=== PATIENT | male | born 1955 | race Two or more races ===

== ENCOUNTER 2025-05-30 21:23 | Inpatient (IN) | payer MEDICAID, OTHER ==
[~2025-05-30] VITALS: Ht 170.2 cm; Wt 65.3 kg
--- NOTE | 2025-05-30 21:39 | ED.PDOC ---
GI ASSESSMENT HPI Comments 70-year-old male with a history of type 2 diabetes and left BKA and per family some cognitive decline now arrives by ambulance from home complaining of generalized abdominal pain worse on the right side of his abdomen for the last 2 days. Associated with some nausea. No known modifying factors. Chief Complaint: Abdominal Pain Time Seen by MD: 21:28 Allergies: Coded Allergies: NO KNOWN ALLERGIES (Unverified , 05/30/25) Information Source: Patient, Emergency Med Personnel Mode of Arrival: EMS Timing: Days Duration: Since onset Quality: Aching Severity: Moderate Pain Location: Diffuse Past Medical History PAST MEDICAL HISTORY: DM Surgical History: BKA Constitutional: reports: malaise Gastrointestinal: reports: abdominal pain, nausea All Other Systems: Reviewed and Negative Physical Exam General Appearance: Moderate Distress, Obese HEENT: Normal ENT Inspection, Pharynx Normal, TMs Normal Neck: Full Range of Motion, Non-Tender, Normal, Normal Inspection Respiratory: Chest Non-Tender, Lungs Clear, No Accessory Muscle Use, No Respiratory Distress, Normal Breath Sounds Cardiovascular: No Edema, No JVD, No Murmur, No Gallop, Normal Peripheral Pulses, Regular Rate/Rhythm Breast Exam: Deferred Gastrointestinal: Diffuse, Tenderness Genitalia: Deferred Pelvic: Deferred Rectal: Deferred Extremities: No pedal edema, Other (left BKA) Musculoskeletal : Apperance: Normal Neurologic: Alert, pharmacy scheduler II-XII nml as Tested, No Motor Deficits, Normal Affect, Normal Mood, No Sensory Deficits Cerebellar Function: Normal Reflexes: Normal Skin: Dry, Normal Color, Warm Lymphatic: No Adenopathy Was a procedure done? Was a procedure done?: No GI differential Dx Differential Diagnosis: Bowel Obstruction, Cholangitis, Constipation, Diverticular disease, Gastritis/PUD, Gastroenteritis, GI hemorrhage, U rolithiasis, Other X-Ray, Labs, Meds, VS Vital Signs Date Time Temp Pulse Resp B/P (MAP) Pulse Ox O2 Delivery O2 Flow Rate FiO2 05/31/25 02:26 96 19 113/50 05/31/25 00:57 98.3 96 16 130/65 (86) 97 98.3 05/30/25 23:00 92 14 96 Room Air* 0 21 05/30/25 22:46 99.6 92 11 139/72 (94) 96 99.6 05/30/25 21:36 99.6 105 17 133/71 97 99.6 Lab Test 05/31/25 00:53 05/31/25 00:14 05/30/25 22:49 05/30/25 21:41 Range/Units POC Glucose 286 H 431 *H 70-106 mg/dl Urine Color Colorless Yellow Urine Clarity Clear Clear Urine pH 6.0 5.0-9.0 Urine Specific [place] 1.026 1.001-1.035 Urine Protein Negative Negative Urine Ketones 1+ H Negative Urine Blood Negative Negative /uL Urine Nitrite Negative Negative Urine Bilirubin Negative Negative Urine Urobilinogen Normal Negative mg/dL Urine Leukocyte Esterase Negative Negative /uL Urine RBC 2 0 - 3 /hpf Urine Microscopic WBC 1 0-3 /HPF Urine Squamous Epithelial Cells None seen <5 /hpf Urine Bacteria None seen None Seen /hpf Urine Glucose 4+ H Normal mg/dL White Blood Count 12.8 H 4.4-10.8 10^3/uL Red Blood Count 4.21 L 4.5-5.90 10^6/uL Hemoglobin 14.2 13.5-17.5 g/dL Hematocrit 41.5 41.0-53.0 % Mean Corpuscular Volume 98.6 80.0-100.0 fL Mean Corpuscular Hemoglobin 33.8 H 28.0-32.0 pg Mean Corpuscular Hemoglobin Concent 34.3 32.0-36.0 g/dL Red Cell Distribution Width 13.1 11.8-14.3 % Platelet Count 246 140-450 10^3/uL Mean Platelet Volume 10.3 6.9-10.8 fL Neutrophils (%) (Auto) 66.2 37.0-80.0 % Lymphocytes (%) (Auto) 19.8 10.0-50.0 % Monocytes (%) (Auto) 12.5 H 0.0-12.0 % Eosinophils (%) (Auto) 0.8 0.0-7.0 % Basophils (%) (Auto) 0.7 0.0-2.0 % Neutrophils # (Auto) 8.5 1.6-8.6 10 ^3/uL Lymphocytes # (Auto) 2.5 0.4-5.4 10 ^3/uL Monocytes # (Auto) 1.6 H 0-1.3 10 ^3/uL Eosinophils # (Auto) 0.1 0-0.8 10 ^3/uL Basophils # (Auto) 0.1 0-0.2 10 ^3/uL Nucleated Red Blood Cells 0.1 % Sodium Level 128 L 136-145 mmol/L Potassium Level 4.3 3.5-5.1 mmol/L Chloride Level 93 L 98-107 mmol/L Carbon Dioxide Level 26 20-31 mmol/L Anion Gap 9 5-15 Blood Urea Nitrogen 16 9-23 mg/dL Creatinine 1.19 0.700-1.30 mg/dL Glomerular Filtration Rate Calc 66 >90 mL/min BUN/Creatinine Ratio 13.4 10.0-20.0 Serum Glucose 416 *H 74-106 mg/dL Calcium Level 8.6 L 8.7-10.4 mg/dL Total Bilirubin 0.6 0.2-1.0 mg/dL Aspartate Amino Transferase (AST) 38 13-40 U/L Alanine Aminotransferase (ALT) 24 7-40 U/L Alkaline Phosphatase 166 H 46-116 U/L Total Protein 6.5 5.7-8.2 g/dL Albumin 3.8 3.2-4.8 g/dL Lipase 29 12-53 U/L Current Medications Medications (Trade) Dose Ordered Sig/Philip Route Start Time Stop Time Status Last Admin Ondansetron HCl (Zofran) 4 mg ONCE ONCE IV 05/30/25 21:45 05/30/25 21:46 DC 05/31/25 02:26 Sodium Chloride 1,000 ml @ 1,000 mls/hr Q1H ONCE IVB 05/30/25 21:45 05/30/25 22:44 DC 05/30/25 21:45 Morphine Sulfate 4 mg ONCE ONCE IV 05/30/25 21:45 05/30/25 21:46 DC 05/31/25 02:26 Insulin Human Regular (InsuLIN R) 6 units ONCE ONCE SC 05/30/25 21:45 05/30/25 21:46 DC 05/30/25 22:55 Time of 1ST Reevaluation: 21:38 Reevaluation 1ST: Unchanged Patient Education/Counseling: Diagnosis, Treatment Family Education/Counseling: No Family Present SEPSIS Sepsis Screen Physician Orders Ct Ab Pel With Iv Con Only (05/30/25 21:32) Blood Glucose Q3h (05/30/25 21:32) R Foot 2 View Xray (05/31/25 04:39) Lactic Acid W/ Reflex Order (05/31/25 04:39) Blood Culture (05/31/25 04:39) PTPTT (05/31/25 04:39) Cefazolin Ancef (05/31/25 04:45) Vancomycin Per Pharmacy (05/31/25 04:45) Enoxaparin Sodium (Lovenox) (05/31/25 04:45) Vital Signs Date Time Temp Pulse Resp B/P (MAP) Pulse Ox O2 Delivery O2 Flow Rate FiO2 05/31/25 02:26 96 19 113/50 05/31/25 00:57 98.3 96 16 130/65 (86) 97 98.3 05/30/25 23:00 92 14 96 Room Air* 0 21 05/30/25 22:46 99.6 92 11 139/72 (94) 96 99.6 05/30/25 21:36 99.6 105 17 133/71 97 99.6 Laboratory Tests Test 05/30/25 21:41 White Blood Count 12.8 10^3/uL (4.4-10.8) H Medications Medications Dose Ordered Sig/Philip Route Start Time Stop Time Status Last Admin Dose Admin Insulin Human Regular 6 units ONCE ONCE SC 05/30/25 21:45 05/30/25 21:46 DC 05/30/25 22:55 Morphine Sulfate 4 mg ONCE ONCE IV 05/30/25 21:45 05/30/25 21:46 DC 05/31/25 02:26 Ondansetron HCl 4 mg ONCE ONCE IV 05/30/25 21:45 05/30/25 21:46 DC 05/31/25 02:26 Sodium Chloride 1,000 ml @ 1,000 mls/hr Q1H ONCE IVB 05/30/25 21:45 05/30/25 22:44 DC 05/30/25 21:45 Departure 1 Departure Time of Disposition: 04:45 Impression: Primary Impression: Generalized abdominal pain Additional Impressions: Cholelithiasis IVC thrombosis Cellulitis of right foot Dry gangrene Type 2 diabetes mellitus with hyperglycemia Disposition: ADMITTED INPATIENT Admit to: Med Surg Condition: Guarded Comments I reviewed the lab results and CT findings. White blood cell count elevated 12.8. Sodium low at 128, chloride low at 93. Severe hyperglycemia with glucose of 416. This improved to 286 with IV fluids and insulin. CT of the abdomen and pelvis was obtained and shows gallstones and inferior vena cava thrombus. Patient also has some dry gangrene to the right great toe and some redness and swelling to the right foot consistent with cellulitis of the right foot. Patient was given Ancef and vancomycin. Patient was given Lovenox for the likely thrombus in the IVC. Patient will need admission for supportive care and further workup Critical Care Note Critical Care Time?: Yes (35 min-critical care time only) Critical care comment: Total critical care time: Approximately 36 minutes Due to a high probability of clinically significant, life threatening deterioration, the patient required my highest level of preparedness to intervene emergently and I personally spent this critical care time directly and personally managing the patient. This critical care time included obtaining a history; examining the patient; pulse oximetry; ordering and review of studies; arranging urgent treatment with development of a management plan; evaluation of patient's response to treatment; frequent reassessment; and, discussions with other providers. This critical care time was performed to assess and manage the high probability of imminent, life-threatening deterioration that could result in multi-organ failure. It was exclusive of separately billable procedures and treating other patients. Stability Stability form required: No Heart Score Heart Score: Heart Score Response (Comments) Value History N/A 0 EKG N/A 0 Age N/A 0 Risk Factors N/A 0 Troponin N/A 0 Total 0 JOÃO CARTER MD May 30, 2025 21:39
[2025-05-30] MEDS: SODIUM CHLORIDE 0.9% 1,000 ML IVB ONE (21:45)
[2025-05-30] MEDS: IOHEXOL 300 MG/ML 100ML BOTTLE IJ ONE (21:55)
[2025-05-30 22:17] LABS: Hematocrit 41.5 % (41.0-53.0); Hemoglobin 14.2 g/dL (13.5-17.5); Mean Corpuscular Hemoglobin 33.8 pg (28.0-32.0); Mean Corpuscular Volume 98.6 fL (80.0-100.0); Nucleated Red Blood Cells % 0.1 %
[2025-05-30 22:52] LABS: Alanine Aminotransferase 24 U/L (7-40); Albumin 3.8 g/dL (3.2-4.8); Alkaline Phosphatase 166 U/L (46-116); Anion Gap 9 (5-15); BUN/Creatinine Ratio 13.4 (10.0-20.0); Bilirubin, Total 0.6 mg/dL (0.2-1.0); Blood Urea Nitrogen 16 mg/dL (9-23); Calcium 8.6 mg/dL (8.7-10.4); Carbon Dioxide 26 mmol/L (20-31); Chloride 93 mmol/L (98-107); Lipase 29 U/L (12-53); Potassium 4.3 mmol/L (3.5-5.1); Sodium 128 mmol/L (136-145); Total Protein 6.5 g/dL (5.7-8.2)
[2025-05-30 22:54] LABS: Glucose 416 mg/dL (74-106)
[2025-05-30] MEDS: InsuLIN REG 1unit/0.01ml Soln (100units/ml) SC ONE (22:55)
[2025-05-30] MEDS: MORPHINE SULFATE 4 MG/ML SYR/VIAL IV ONE (22:57)
[2025-05-30] MEDS: ONDANSETRON HCL 4 MG/2 ML VIAL IV ONE (22:57)
[2025-05-30 23:00] VITALS: PULSE 92; RESP 14; O2SAT 96
[2025-05-31 01:56] LABS: Urine Protein, UAD Negative (Negative)
--- NOTE | 2025-05-31 04:24 | DVH ---
Exam: CT CT AB PEL WITH IV CON ONLY History: abd pain COMPARISON: None Technique: Multidetector spiral CT of the abdomen and pelvis was performed from lung bases to pubic s ymphysis. Intravenous contrast was administered during this examination. Portal venous imaging was o btained. Axial, coronal and sagittal multiplanar reformats were performed by the technologist on a [employer] workstation. Radiation Dose : 1. Abdomen/Pelvis: CTDIvol 17.6 mGy, DLP 970.6 mGy*cm. CONTRAST: Type of contrast: Omnipaque 300 Contrast injected: 100 ml Findings: Lung Bases: No acute or significant lung base finding. Moderate posterior bibasilar atelectasis. Norm al heart size. No pleural or pericardial effusion. Liver: The liver is normal in size. No focal lesions. Normal hepatic vascular enhancement. Gallbladder and Biliary Tree: Cholelithiasis. Spleen: Unremarkable Pancreas: The pancreas is normal in appearance without focal lesions or abnormal enhancement. Adrenal Glands: Unremarkable Kidneys: No hydronephrosis. Bladder: Unremarkable Bowel: The stomach is grossly normal in appearance. Small bowel and colon are normal in caliber and d istribution. The appendix is not visualized; however, no secondary findings of acute appendicitis eileen ntified. Ascites: Absent Lymphadenopathy: No mesenteric, retroperitoneal or periportal lymphadenopathy. Abdominal Wall and Mesentery: Unremarkable. Vasculature: Apparent intraluminal filling defect of the inferior vena cava extending from the juncti on of the iliac vessels to the level of the portal vein. Although this may represent incomplete admix ture of unopacified and opacified blood, venous thrombosis can not be completely excluded given this appearance. The visualized abdominal aorta is normal in size and caliber. Atherosclerotic vascular ca lcifications. Abdominal and pelvic vessels otherwise demonstrate normal enhancement. Pelvic Organs: Unremarkable Musculoskeletal: Moderate to severe age-indeterminate compression fracture deformity of the L2 verteb ral body has resulted between 25 and 50% central and anterior height loss. No evidence of retropulsio n of fragments into the central canal. Hardware within the left hip status post arthroplasty with ass ociated beam hardening artifact partially obscuring the findings of the pelvis. IMPRESSION: 1. Apparent intraluminal filling defect of the inferior vena cava extending from the junction of the iliac vessels level of the portal vein possibly representing venous thrombus. Incomplete admixture of unopacified and opacified blood dependent upon phase of contrast administration and imaging can also cause this appearance. Follow-up imaging with triple phase protocol can be useful in further clarify ing this finding. 2. Cholelithiasis. Radiation optimization: All CT scans at this facility use at least one of these dose optimization axel hniques: automated exposure control mA and/or kV adjustment per patient size (includes targeted exam s where dose is matched to clinical indication) or iterative reconstruction.
[2025-05-31] MEDS ORDERED: VANCOMYCIN PER PHARMACY 0 MG IV SCH (04:45)
[2025-05-31] MEDS: ENOXAPARIN SOD 100 MG/1 ML SYRINGE SC ONE (05:03)
[2025-05-31] MEDS: ceFAZolin 1GM/50ML 50 ML IV ONE (05:03)
--- NOTE | 2025-05-31 05:19 | DVH ---
CLINICAL INDICATION: great toe gangrene / red / swollen TECHNIQUE: XY R FOOT 2 VIEW XRAY Comparison: None FINDINGS/IMPRESSION: : There is no evidence of acute fracture or dislocation. 1st digit subungual gas consistent with probable infectious process. No definite radiographic eviden ce of osteomyelitis. Moderate hallux valgus. Minimal plantar and retrocalcaneal enthesopathy. Soft tissues are unremarkable. Atherosclerotic vascular calcifications.
[2025-05-31 05:24] LABS: INR 1.04 (0.9-1.15); Partial Thromboplastin Time 25.3 SEC (24.5-34.5); Prothrombin Time 11.0 sec (9.3-11.8)
[2025-05-31] MEDS: VANCOMYCIN 1.25GM/250ML 250 ML IV ONE (05:48)
[2025-05-31] MEDS: InsuLIN REG 1unit/0.01ml Soln (100units/ml) SC ONE (05:48)
[2025-05-31] MEDS ORDERED: DOCUSATE SOD 100 MG CAP PO PRN (07:45)
[2025-05-31] MEDS ORDERED: ONDANSETRON HCL 4 MG/2 ML VIAL IV PRN (07:45)
[2025-05-31] MEDS ORDERED: NITROGLYCERIN 0.4 MG SL TAB SL PRN (07:45)
[2025-05-31] MEDS ORDERED: MORPHINE SULFATE INJ 2 MG/ml SYRG IV PRN (07:45)
[2025-05-31] MEDS ORDERED: DEXTROSE (50%) 50ML SYRG IV PRN (08:15)
--- NOTE | 2025-05-31 08:17 | DVHHP2 ---
History of Present Illness Reason for Visit: Abdominal pain History of Present Illness Abdias Naav is a 70-year-old male with past medical history of diabetes, who came to the hospital with complaints of abdominal pain. Patient states he has had RUQ abdominal pain intermittent for about 1-2 months. He also has a gangrene right great toe and a wound to his right heal that he says causes him pain. He has had the wound for a couple months as well and was receiving wound care. Endocrine: Diabetes Past Surgical History: Hernia Repair, Other (L BKA) Smoke: No ALCOHOL: none Drugs: None Lives: with Family Domestic Violence: Neg Review of Systems Constitutional: No: Fever, Chills, Sweats, Weakness, Malaise, Other Eyes: No: Pain, Vision change, Conjunctivae inflammation, Eyelid inflammation, Other, Redness ENT: No: Ear pain, Ear discharge, Nose pain, Nose discharge, Nose congestion, Mouth pain, Mouth swelling, Throat pain, Throat swelling, Other Respiratory: No: Cough, Dry, Shortness of breath, SOB with excertion, Wheezing, Hemoptysis, Pleuritic Pain, Sputum, Wheezing, Other Cardiovascular: No: Chest Pain, Palpitations, Orthopnea, Paroxysmal Noc. Dyspnea, Edema, Lt Headedness, Other Gastrointestinal: Abdominal Pain; No: Nausea, Vomiting, Diarrhea, Constipation, Melena, Hematochezia, Other Genitourinary: No Dysuria, No Frequency, No Incontinence, No Hematuria, No Retention, No Other Musculoskeletal: No: other, neck pain, shoulder pain, arm pain, back pain, hand pain, leg pain, foot pain Skin: No: Rash, Lesions, Jaundice, Bruising, Other Neurological: No: Weakness, Numbness, Incoordination, Change in speech, Confusion, Seizures, Other Allergies: Coded Allergies: NO KNOWN ALLERGIES (Unverified , 05/30/25) Medications Current Medications Medications Dose Ordered Sig/Philip Route Start Time Stop Time Status Last Admin Dose Admin Vancomycin HCl 0 ml @ 0 mls/hr UD IV 05/31/25 04:45 UNV Exam Vital Signs Vital Signs Date Time Temp Pulse Resp B/P (MAP) Pulse Ox O2 Delivery O2 Flow Rate FiO2 05/31/25 06:45 99.5 92 19 132/63 (86) 95 99.5 05/30/25 23:00 Room Air* 0 21 General Appearance: Alert, Cooperative, Other (Oriented x 2) HEENT: Atraumatic, PERRLA Respiratory: Clear to auscultation, Normal air movement Cardiovascular: Regular rate, Normal S1, Normal S2 Abdominal: Normal bowel sounds, Soft, Other (C/O RUQ pain) Extremities: No clubbing, No cyanosis Skin: No significant lesion (wound to right heal and right great toe) Neuro: Normal speech Psych/Mental Status: Mental status NL Labs/Xrays Labs Test 05/31/25 05:35 05/31/25 04:53 05/31/25 00:14 05/30/25 21:41 Range/Units POC Glucose 373 H 70-106 mg/dl Prothrombin Time 11.0 9.3-11.8 sec Prothrombin Time INR 1.04 0.9-1.15 Activated Partial Thromboplast Time 25.3 24.5-34.5 SEC Lactic Acid Level 2.0 0.4-2.0 mmol/L Urine Color Colorless Yellow Urine Clarity Clear Clear Urine pH 6.0 5.0-9.0 Urine Specific [place] 1.026 1.001-1.035 Urine Protein Negative Negative Urine Ketones 1+ H Negative Urine Blood Negative Negative /uL Urine Nitrite Negative Negative Urine Bilirubin Negative Negative Urine Urobilinogen Normal Negative mg/dL Urine Leukocyte Esterase Negative Negative /uL Urine RBC 2 0 - 3 /hpf Urine Microscopic WBC 1 0-3 /HPF Urine Squamous Epithelial Cells None seen <5 /hpf Urine Bacteria None seen None Seen /hpf Urine Glucose 4+ H Normal mg/dL White Blood Count 12.8 H 4.4-10.8 10^3/uL Red Blood Count 4.21 L 4.5-5.90 10^6/uL Hemoglobin 14.2 13.5-17.5 g/dL Hematocrit 41.5 41.0-53.0 % Mean Corpuscular Volume 98.6 80.0-100.0 fL Mean Corpuscular Hemoglobin 33.8 H 28.0-32.0 pg Mean Corpuscular Hemoglobin Concent 34.3 32.0-36.0 g/dL Red Cell Distribution Width 13.1 11.8-14.3 % Platelet Count 246 140-450 10^3/uL Mean Platelet Volume 10.3 6.9-10.8 fL Neutrophils (%) (Auto) 66.2 37.0-80.0 % Lymphocytes (%) (Auto) 19.8 10.0-50.0 % Monocytes (%) (Auto) 12.5 H 0.0-12.0 % Eosinophils (%) (Auto) 0.8 0.0-7.0 % Basophils (%) (Auto) 0.7 0.0-2.0 % Neutrophils # (Auto) 8.5 1.6-8.6 10 ^3/uL Lymphocytes # (Auto) 2.5 0.4-5.4 10 ^3/uL Monocytes # (Auto) 1.6 H 0-1.3 10 ^3/uL Eosinophils # (Auto) 0.1 0-0.8 10 ^3/uL Basophils # (Auto) 0.1 0-0.2 10 ^3/uL Nucleated Red Blood Cells 0.1 % Sodium Level 128 L 136-145 mmol/L Potassium Level 4.3 3.5-5.1 mmol/L Chloride Level 93 L 98-107 mmol/L Carbon Dioxide Level 26 20-31 mmol/L Anion Gap 9 5-15 Blood Urea Nitrogen 16 9-23 mg/dL Creatinine 1.19 0.700-1.30 mg/dL Glomerular Filtration Rate Calc 66 >90 mL/min BUN/Creatinine Ratio 13.4 10.0-20.0 Serum Glucose 416 *H 74-106 mg/dL Calcium Level 8.6 L 8.7-10.4 mg/dL Total Bilirubin 0.6 0.2-1.0 mg/dL Aspartate Amino Transferase (AST) 38 13-40 U/L Alanine Aminotransferase (ALT) 24 7-40 U/L Alkaline Phosphatase 166 H 46-116 U/L Total Protein 6.5 5.7-8.2 g/dL Albumin 3.8 3.2-4.8 g/dL Lipase 29 12-53 U/L Exam: CT CT AB PEL WITH IV CON ONLY CONTRAST: Type of contrast: Omnipaque 300 Contrast injected: 100 ml Findings: Lung Bases: No acute or significant lung base finding. Moderate posterior bibasilar atelectasis. Normal heart size. No pleural or pericardial effusion. Liver: The liver is normal in size. No focal lesions. Normal hepatic vascular enhancement. Gallbladder and Biliary Tree: Cholelithiasis. Spleen: Unremarkable Pancreas: The pancreas is normal in appearance without focal lesions or abnormal enhancement. Adrenal Glands: Unremarkable Kidneys: No hydronephrosis. Bladder: Unremarkable Bowel: The stomach is grossly normal in appearance. Small bowel and colon are normal in caliber and distribution. The appendix is not visualized; however, no secondary findings of acute appendicitis identified. Ascites: Absent Lymphadenopathy: No mesenteric, retroperitoneal or periportal lymphadenopathy. Abdominal Wall and Mesentery: Unremarkable. Vasculature: Apparent intraluminal filling defect of the inferior vena cava extending from the junction of the iliac vessels to the level of the portal vein. Although this may represent incomplete admixture of unopacified and opacified blood, venous thrombosis can not be completely excluded given this ap pearance. The visualized abdominal aorta is normal in size and caliber. Atherosclerotic vascular calcifications. Abdominal and pelvic vessels otherwise demonstrate normal enhancement. Pelvic Organs: Unremarkable Musculoskeletal: Moderate to severe age-indeterminate compression fracture deformity of the L2 vertebral body has resulted between 25 and 50% central and anterior height loss. No evidence of retropulsion of fragments into the central canal. Hardware within the left hip status post arthroplasty with associated beam hardening artifact partially obscuring the findings of the pelvis. IMPRESSION: 1. Apparent intraluminal filling defect of the inferior vena cava extending from the junction of the iliac vessels level of the portal vein possibly representing venous thrombus. Incomplete admixture of unopacified and opacified blood dependent upon phase of contrast administration and imaging can also cause this appearance. Follow-up imaging with triple phase protocol can be useful in further clarifying this finding. 2. Cholelithiasis. CLINICAL INDICATION: great toe gangrene / red / swollen FINDINGS/IMPRESSION: : There is no evidence of acute fracture or dislocation. 1st digit subungual gas consistent with probable infectious process. No definite radiographic evidence of osteomyelitis. Moderate hallux valgus. Minimal plantar and retrocalcaneal enthesopathy. Soft tissues are unremarkable. Atherosclerotic vascular calcifications. SEPSIS Sepsis Screen Date sepsis recognized/suspect: May 30, 2025 Time Sepsis recognized/suspect: 2134 Recent Procedure: No On Antibiotic Therapy: No Respiratory Rate >20: No Heart Rate >90: Yes Temp<36 C (96.8 F) or >38.3 C: No SBP <90 or MAP <65 mmHG: No New Acute Mental Status Change: No Is the patient on CPAP, BIPAP,: No Physician Orders R Foot 2 View Xray (05/31/25 04:39) Blood Culture (05/31/25 04:39) Vancomycin Per Pharmacy (05/31/25 04:45) Vancomycin Per Pharmacy Protoc (05/31/25 05:30) * Wound Consult (05/31/25 ) Admit (05/31/25 07:34) Code Status (05/31/25 07:34) 2 Gm Sodium Diet (05/31/25 Breakfast) Hydrocodone-Acet 5/325mg Tab (Pender 32 (05/31/25 07:45) Ondansetron Hcl (Zofran) (05/31/25 07:45) Docusate Sodium Capsule (Colace Capsule) (05/31/25 07:45) Complete Blood Count (06/01/25 04:00) Comprehensive Metabolic Panel (06/01/25 04:00) Condition: Serious (05/31/25 07:34) Acetaminophen Tablet (Tylenol Tablet) (05/31/25 07:45) Nitroglycerin Sublingual (Ntrostat Subli (05/31/25 07:45) Morphine Sulfate Injection (05/31/25 07:45) Stat Ekg For Chest Pain (05/31/25 07:34) Notify Md Of Changes From Base (05/31/25 07:34) Oil Exploration Engineer For 24 Hours (05/31/25 07:34) Emergency Dysrhythmia Protocol (05/31/25 07:34) Rhythm Strips Once Every Shift (05/31/25 07:34) Oxygen By Nasal Cannula (05/31/25 07:34) *Podiatry Consult [facility]) (05/31/25 07:34) Ct R Foot Wo Contrast (05/31/25 07:34) Right Lower Extremity Ultrasou (05/31/25 07:34) Vital Signs Date Time Temp Pulse Resp B/P (MAP) Pulse Ox O2 Delivery O2 Flow Rate FiO2 05/31/25 06:45 99.5 92 19 132/63 (86) 95 99.5 05/31/25 05:00 98.0 98 14 133/54 (80) 97 98.0 05/31/25 02:56 68 19 151/102 05/31/25 02:26 96 19 113/50 05/31/25 00:57 98.3 96 16 130/65 (86) 97 98.3 Laboratory Tests Test 05/30/25 21:41 05/31/25 04:53 White Blood Count 12.8 10^3/uL (4.4-10.8) H Lactic Acid Level 2.0 mmol/L (0.4-2.0) Medications Medications Dose Ordered Sig/Philip Route Start Time Stop Time Status Last Admin Dose Admin Cefazolin Sodium 50 ml @ 100 mls/hr ONCE ONCE IV 05/31/25 04:45 05/31/25 05:14 DC 05/31/25 05:03 100 MLS/HR Enoxaparin Sodium 70 mg ONCE ONCE SC 05/31/25 04:45 05/31/25 04:46 DC 05/31/25 05:03 70 MG Insulin Human Regular 4 units ONCE ONCE SC 05/31/25 05:45 05/31/25 05:46 DC 05/31/25 05:48 4 UNITS Insulin Human Regular 6 units ONCE ONCE SC 05/30/25 21:45 05/30/25 21:46 DC 05/30/25 22:55 6 UNITS Morphine Sulfate 4 mg ONCE ONCE IV 05/30/25 21:45 05/30/25 21:46 DC 05/31/25 02:26 4 MG Ondansetron HCl 4 mg ONCE ONCE IV 05/30/25 21:45 05/30/25 21:46 DC 05/31/25 02:26 4 MG Sodium Chloride 1,000 ml @ 1,000 mls/hr Q1H ONCE IVB 05/30/25 21:45 05/30/25 22:44 DC 05/30/25 21:45 1,000 MLS/HR Vancomycin HCl 250 ml @ 200 mls/hr ONCE ONCE IV 05/31/25 05:30 05/31/25 06:44 DC 05/31/25 05:48 200 MLS/HR Assessment/Plan Assessment/Plan Assessment: Dry gangrene, right foot cellulitis, Hyperglycemia, IVC thrombosis, Cholelithiasis, Uncontrolled Diabetes, Plan: Admit to Tele, Podiatry consult, Wound care consult, CT right foot, Right leg ultrasound, Anticoagulation, Abdominal ultrasound, Consider IR consult, A1c, Accu checks Q AC&HS with sliding scale, Plan discussed with: Patient My Orders Orders - RIP SANTOS Procedure Category Date Status Time Admit ADMIT 05/31/25 Verified 07:34 Code Status CODE 05/31/25 Verified 07:34 2 Gm Sodium Diet DIET 05/31/25 Verified Breakfast Hydrocodone-Acet PHA 05/31/25 Verified 5/325mg Tab (Pender 07:45 Ondansetron Hcl PHA 05/31/25 Verified (Zofran) 07:45 Docusate Sodium PHA 05/31/25 Verified Capsule (Colace 07:45 Complete Blood Count LAB 06/01/25 Verified 04:00 Comprehensive LAB 06/01/25 Verified Metabolic Panel 04:00 Condition: Serious FEDE 05/31/25 Verified 07:34 Acetaminophen Tablet PHA 05/31/25 Verified (Tylenol Tablet) 07:45 Nitroglycerin PHA 05/31/25 Verified Sublingual (Ntrostat 07:45 Morphine Sulfate PHA 05/31/25 Verified Injection 07:45 Stat Ekg For Chest FEDE 05/31/25 Verified Pain 07:34 Notify Md Of Changes FEDE 05/31/25 Verified From Base 07:34 Oil Exploration Engineer For [facility] 05/31/25 Verified 24 Hours 07:34 Emergency Dysrhythmia FEDE 05/31/25 Verified Protocol 07:34 Rhythm Strips Once [facility] 05/31/25 Verified Every Shift 07:34 Oxygen By Nasal RT 05/31/25 Verified Cannula 07:34 *Podiatry Consult CONS 05/31/25 Verified [facility]usson([facility]) 07:34 Ct R Foot Wo Contrast CT 05/31/25 Verified 07:34 Right Lower Extremity US 05/31/25 Verified Ultrasou 07:34 Date of Service: May 31, 2025 Billing Provider: RIP SANTOS Common Visit Codes: [id number] INP/OBS CARE (MOD) RIP SANTOS May 31, 2025 08:17
--- NOTE | 2025-05-31 08:52 | DVH ---
Right lower extremity venous duplex Clinical History: R/O thrombus Comparison: None Technique: Duplex Doppler evaluation of the deep venous system of the right lower extremity from the common femo ral vein to the popliteal vein including color Doppler and spectral/pulsed waveform analysis was perf ormed. Findings: The common femoral vein demonstrates appropriate compressibility and waveform variability. There is compressibility/patency of the great saphenous vein at the proximal thigh. The femoral vein demonstrates appropriate compressibility and waveform variability. The deep femoral vein demonstrates appropriate compressibility and waveform variability. The popliteal vein demonstrates appropriate compressibility and waveform variability. There is normal compressibility at the tibioperoneal trunk. Impression: 1. No right femoropopliteal venous thrombosis. 2. Contralateral common femoral vein is patent.
[2025-05-31 09:30] VITALS: PULSE 85; RESP 11
--- NOTE | 2025-05-31 09:31 | DVH ---
INDICATION: RUQ pain, Cholelithiasis TECHNIQUE: Multiple real-time sonographic images of the abdomen were obtained. COMPARISON: None FINDINGS: The liver is HETEROGENEOUS in echogenicity. The liver measures 13cm. No intrahepatic bilia ry ductal dilatation is noted. The gallbladder wall measures 0.3 cm and is unremarkable. No gallstones or sludge is seen. The commo n duct measures 0.7 cm and is unremarkable. No pericholecystic fluid is noted. The right kidney measures 10cm. No hydronephrosis. The pancreas is not well visualized due to obscuration from bowel gas. The visualized portions of the IVC and aorta are grossly unremarkable. IMPRESSION: Hepatic steatosis
[2025-05-31] MEDS ORDERED: ENOXAPARIN SOD 100 MG/1 ML SYRINGE SC SCH (10:00)
--- NOTE | 2025-05-31 10:06 | DVH ---
CLINICAL INFORMATION: 70 years old, Male; Dry gangrene. TECHNIQUE: Axial CT images of the right foot were obtained without IV contrast. Coronal and sagittal reformatted images were obtained, reviewed, and stored. All CT scans at this medical facility are pe rformed using dose modulation techniques as appropriate to a performed exam including the following: Automated exposure control was utilized; adjustment of the MA and/or KV according to patient size; an d use of iterative reconstruction technique. CTDIvol = 7.75 mGy DLP = 231.29 mGy-cm COMPARISON: XY R FOOT 2 VIEW XRAY on DOS: 05/31/25 FINDINGS: There is moderate subcutaneous edema in the great toe with prominent locules of gas adjacen t to and within the distal phalanx of the great toe, likely due to necrosis. Necrotizing infection n ot excluded. Can not exclude osteomyelitis in the distal phalanx. No gas is seen coursing along adjac ent fascial planes or elsewhere in the right foot. There is dense arterial calcification. There is a wound adjacent to the plantar aspect of the calcaneus with adjacent subcutaneous edema, possible cell ulitis in the appropriate clinical setting. No organized fluid collection identified on CT to suggest abscess, although limited evaluation for abscess on CT. No adjacent erosive changes or cortical dest ruction in the calcaneus. IMPRESSION: 1. Moderate subcutaneous edema in the great toe with prominent locules of gas adjacent to and within the distal phalanx, likely due to necrosis. Necrotizing infection not excluded. Correlate with clin ical findings. Can not exclude osteomyelitis in the distal phalanx. 2. Wound of the plantar aspect of the calcaneus with adjacent subcutaneous edema, possible cellulitis in the appropriate clinical setting. No evidence for abscess or osteomyelitis in this location on CT . Correlate with clinical findings. If clinically indicated, MRI could be considered. 3. Additional findings as described above.
[2025-05-31] MEDS: InsuLIN REG 1unit/0.01ml Soln (100units/ml) SC SCH ×2 (11:30→21:18)
[2025-05-31] MEDS: ACCU-CHEK COMFORT CURVE STRIP VI SCH (11:30)
[2025-05-31] MEDS: ENOXAPARIN SOD 80 MG/0.8ML SYRINGE SC SCH (12:29)
--- NOTE | 2025-05-31 13:00 | DVH ---
Exam: XY KUB ABDOMEN SINGLE VIEW Indication: r/o sbo Comparison: US ABDOMEN LIMITED on DOS: 05/31/25, CT CT AB PEL WITH IV CON ONLY on DOS: 05/30/25 Technique: 2 radiographic views of the abdomen. Findings: Nonspecific bowel-gas pattern. There is no definite evidence for pneumoperitoneum. No abnormal calcifications noted. Impression: Nonspecific bowel-gas pattern.
--- NOTE | 2025-05-31 14:10 | DVH ---
BILATERAL Lower Extremity Arterial Duplex Date: 05/31/2025 01:29 PM Clinical History: dry gangrene Rt toe, left bka, r/o PAD for podiatry interv Comparison: US RT LOWER DVT on DOS: 05/31/25 Technique: Duplex Doppler evaluation including color Doppler and spectral/pulsed waveform analysis of the lower extremity arteries was performed. Finding: RIGHT: Peak systolic velocities are as follows: SCAFFOLD BUILDER 101 cm/s triphasic waveform Deep femoral 60 cm/s triphasic waveform SFA proximal 79 cm/s triphasic waveform SFA mid-portion 74 cm/s triphasic waveform SFA distal 55 cm/s triphasic waveform Popliteal 69 cm/s triphasic waveform Posterior tibial 90 cm/s triphasic waveform Dorsalis pedis 42cm/s monophasic waveform The waveforms are triphasic waveform from the common femoral artery to the posterior tibial artery. M onophasic waveform in the right dorsalis pedis. LEFT: Peak systolic velocities are as follows: SCAFFOLD BUILDER 54 cm/s triphasic waveform Deep femoral 82 cm/s 82 triphasic waveform SFA proximal 67 cm/s triphasic waveform SFA mid-p 66 ortion 66 cm/s biphasic waveform SFA distal 59 cm/s biphasic waveform Popliteal 34 cm/s biphasic waveform Below-knee amputation The waveforms are triphasic waveform throughout the right lower extremity. Monophasic waveform in the dorsalis pedis. REFERENCE VALUES, [facility] ([facility]) vascular Imaging Lab Criteria: Peak systolic velocity ranges (in cm/sec) are as follows: <150 cm/s - <20 % stenosis 150-200 cm/s - 20-49% stenosis 200-300 cm/s - 50-75% stenosis >300 cm/s -> 75% stenosis IMPRESSION: 1. There is monophasic waveform in the right dorsalis pedis. 2. There is no evidence for peripheral vascular insufficiency in the left lower extremity. 3. Below-knee amputation on the left. 4. Triphasic and biphasic waveforms in the left lower extremity 5. No significant focal stenosis is identified.
[2025-05-31] MEDS: HYDROcodone-ACET 5/325MG TAB PO PRN (16:13)
--- NOTE | 2025-05-31 16:45 | DVHPNRES ---
Progress Note Date Seen: May 31, 2025 Resident Creating Document: UVALDO HARRINGTON RESIDENT Medical Necessity Reason Pt with a Central, PICC or Fol: No Subjective Review of Systems 70-year-old with a past medical history of diabetes and hypertension came to the emergency with complaints of right upper quadrant pain and black discoloration of the right 1st hallux. patient reported that he had right upper quadrant pain for a few days now but yesterday it increased, is a stabbing type, radiates to the epigastric region, 10/ 10 in intensity, not associated with any aggravating or relieving factors. It was not associated with any nausea, vomiting, diarrhea, chills, fever. Patient also reports that his right tip of the toe has become black since the last 2 months and he sometimes feels shooting pain. He has been going to [facility] to get it cleaned. Patient has a ornkc-rjb-gtka amputation of the left leg and is in home hospice. PMH: Diabetes type 2, hypertension PSH: Hernia repair, left ivhsn-ezn-[id number] amputation Social history: Patient lives with family. He denies any smoking, alcohol or taking any illicit drugs. family history: Reviewed and noncontributory to the management of the case Allergies: None ROS: Patient was seen by me at the emergency bedside. Patient's son was present. Patient reports that there is a shooting pain in his right toe. He still complains of right upper quadrant pain . Palacios sign was positive. CT scan shows presence of cholelithiasis, but ultrasound is negative for it. x-ray of the foot shows 1st digit subungual gas consistent with probable infectious process. duplex scan shows: There is monophasic waveform in the right dorsalis pedis. venous Doppler shows no femoral popliteal venous thrombosis. Podiatry consult, pending . IR consulted for possible IVC thrombus. Patient's HbA1c is more than 14 we have put him in moderate sliding scale insulin and insulin Lantus 15 units HS. Objective vital signs Vital Sign Date Time Temp Pulse Resp B/P (MAP) Pulse Ox O2 Delivery O2 Flow Rate FiO2 05/31/25 16:06 98.9 88 20 131/69 (89) 98.9 05/31/25 09:30 Room Air* 0 21 05/31/25 08:00 95 Total Intake and Output 05/30/25 05/30/25 05/31/25 15:00 23:00 07:00 Intake Total 1000 ml 250 ml Balance 1000 ml 250 ml medications Current Medications Medications Dose Ordered Sig/Philip Route Start Time Stop Time Status Last Admin Dose Admin Vancomycin HCl 0 ml @ 0 mls/hr UD IV 05/31/25 04:45 Acetaminophen/ Hydrocodone Bitart 1 tab Q4HP PRN PO 05/31/25 07:45 05/31/25 16:13 1 TAB Ondansetron HCl 4 mg Q4HP PRN IV 05/31/25 07:45 Docusate Sodium 100 mg BIDPRN PRN PO 05/31/25 07:45 Acetaminophen 650 mg Q6HP PRN PO 05/31/25 07:45 Nitroglycerin 0.4 mg Q5MINP PRN SL 05/31/25 07:45 Morphine Sulfate 2 mg Q30M PRN IV 05/31/25 07:45 Enoxaparin Sodium 70 mg Q12HR SC 05/31/25 10:00 UNV Diagnostic Test (Pha) 1 strip ACHS 05/31/25 11:30 05/31/25 11:30 1 STRIP Insulin Human Regular HS SC 05/31/25 22:00 Insulin Human Regular AC SC 05/31/25 11:30 05/31/25 11:30 9 UNITS Dextrose 50 ml UD PRN IV 05/31/25 08:15 Enoxaparin Sodium 70 mg BID SC 05/31/25 10:00 05/31/25 12:29 70 MG Vancomycin HCl 100 ml @ 100 mls/hr Q12H IV 05/31/25 18:00 Insulin Glargine 15 units HS SC 05/31/25 22:00 Pantoprazole Sodium 40 mg DAILY IV 06/01/25 10:00 UNV Examination Pt is lying on bed General Appearance: Alert, Oriented X3, Cooperative, Not in acute distress HEENT: Atraumatic, Mucous membranes moist/pink Respiratory: Clear to auscultation, Normal air movement, No added sounds Cardiovascular: Regular rate, Normal S1, Normal S2, No murmurs Abdominal: Active bowel sounds, Soft, no distention, tenderness in the right upper quadrant Extremities: No edema, Normal pulses, Irrat-upa-spkn amputation on the left leg, dry gangrene, black skin on the tip of the right 1st hallux, Erythema resent below the dry gangrene and 1st metatarsal joint Skin: No Significant rash, except past surgical scars Neuro: Normal speech, sensorimotor deficits none Psych/Mental Status: Mental status NL, Mood NL Nurse was there as steward/stewardess banquet during examination laboratory and microbiology Laboratory Tests 05/30/25 21:41 Test 05/30/25 21:41 Range/Units Serum Glucose 416 *H 74-106 mg/dL Labs and/or images reviewed: Labs reviewed by me, Image(s) reviewed by me Problem List/Assessment/Plan Problem List/Assessment/Plan #Sepsis due to right foot cellulitis #Dry gangrene on right 1st hallux -xray of right foot shows: There is no evidence of acute fracture or dislocation; 1st digit subungual gas consistent with probable infectious process. No definite radiographic evidence of osteomyelitis; Moderate hallux valgus; Minimal plantar and retrocalcaneal enthesopathy; Soft tissues are unremarkable. Atherosclerotic vascular calcifications. -Venous Doppler showed: No right femoropopliteal venous thrombosis. -Right foot CT without contrast shows: 1. Moderate subcutaneous edema in the great toe with prominent locules of gas adjacent to and within the distal phalanx, likely due to necrosis. Necrotizing infection not excluded.b Can not exclude osteomyelitis in the distal phalanx. 2. Wound of the plantar aspect of the calcaneus with adjacent subcutaneous edema, possible cellulitis in the appropriate clinical setting. No evidence for abscess or osteomyelitis in this location on CT. If clinically indicated, MRI could be considered. 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 The thrombus extends to the intrahepatic IVC so the is not a good place to place IVC filter. 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 # uncontrolled Diabetes mellitus type 2, HbA1c >14 -UA shows +1 ketones, +4 glucose -Moderate sliding scale insulin -Insulin Lantus 15 units HS # MARY due to VMN -received IV fluids on admission GI prophylaxis: 40 mg IV daily DVT prophylaxis: Lovenox 70 mg b.i.d. D Diet: cardiac diet Goals of care discussed with the patient's son at bedside for more than 27 minutes: Full code status Case discussed with Dr. Mann, patient, patient's son and nurse. Plan discussed with: Patient, Other (rn) My Orders My Orders Orders - UVALDO HARRINGTON Procedure Category Date Status Time Bilat Low Ext Art US 05/31/25 Resulted Duplex 13:22 Pantoprazole PHA 06/01/25 Logged (Protonix) 10:00 Date of Service: May 31, 2025 Billing Provider: ELIAS BOB MD Common Visit Codes: 30301-[id number] INP/OBS CARE(HIGH) UVALDO HARRINGTON May 31, 2025 16:45 ROLA SEO May 31, 2025 18:38 ELIAS BOB MD Jun 02, 2025 00:27
[2025-05-31 17:35] VITALS: PULSE 85; O2SAT 98
[2025-05-31] MEDS: VANCOMYCIN 750MG KIT 100 ML IV SCH (17:57)
[2025-05-31 18:59] LABS: Amphetamine Screen, Urine Neg (NEGATIVE); Barbiturate Scree,Urine Neg (NEGATIVE); Benzodiazephine Screen, Urine Neg (NEGATIVE); Cannabinoid Screen, Urine Neg (NEGATIVE); Cocaine Screen, Urine Neg (NEGATIVE); Opiate Scree,Urine Pos (NEGATIVE); Phencyclidine Screen, Urine Neg (NEGATIVE); Protein, Urine < 6.0 mg/dL (1-14)
[2025-05-31 20:00] VITALS: PULSE 76; PULSE 80; RESP 16; O2SAT 98
[2025-05-31 20:48] VITALS: BP 122/77; PULSE 80; RESP 16; TEMP 98.1; O2SAT 98
[2025-05-31] MEDS: INSULIN LANTUS (GLARGINE) 1 /0.01ml (100units/ml) SC SCH (21:31)
[2025-05-31] MEDS: CEFEPIME 2GM/50ML NS 50 ML IV SCH (21:35)
[2025-06-01] VITALS (8 sets, daily range): BP systolic 90–146; BP diastolic 51–88; PULSE 79–100; RESP 15–18; TEMP 97.8–98.5; O2SAT 95–98
[2025-06-01 07:32] LABS: Hematocrit 39.1 % (41.0-53.0); Hemoglobin 13.9 g/dL (13.5-17.5); Mean Corpuscular Hemoglobin 34.4 pg (28.0-32.0); Mean Corpuscular Volume 97.0 fL (80.0-100.0); Nucleated Red Blood Cells % 0.0 %
[2025-06-01 07:39] LABS: Alanine Aminotransferase 21 U/L (7-40); Albumin 3.5 g/dL (3.2-4.8); Anion Gap 9 (5-15); BUN/Creatinine Ratio 6.7 (10.0-20.0); Carbon Dioxide 24 mmol/L (20-31); Chloride 104 mmol/L (98-107); Potassium 3.5 mmol/L (3.5-5.1); Sodium 137 mmol/L (136-145); Total Protein 6.1 g/dL (5.7-8.2)
[2025-06-01 07:40] LABS: Bilirubin, Total 0.8 mg/dL (0.2-1.0)
[2025-06-01 07:44] LABS: Alkaline Phosphatase 140 U/L (46-116); Blood Urea Nitrogen 6 mg/dL (9-23); Calcium 8.6 mg/dL (8.7-10.4); Glucose 158 mg/dL (74-106)
[2025-06-01] MEDS: PANTOPRAZOLE 40 MG/10 ML VIAL INJ IV SCH (10:52)
--- NOTE | 2025-06-01 13:16 | DVHCONRES ---
Date Seen: Jun 01, 2025 Reason for Consultation Right hallux gangrene History of Present Illness Abdias Nava is a 70-year-old male with past medical history of diabetes, who came to the hospital with complaints of abdominal pain. Patient states he has had RUQ abdominal pain intermittent for about 1-2 months. He also has a gangrene right great toe and a wound to his right heal that he says causes him pain. He has had the wound for a couple months as well and was receiving wound care. Past Medical History See H&P Past Surgical History See H&P Family History: Diabetes mellitus G8 MOTHER G8 FATHER Hypertension G8 MOTHER G8 FATHER Allergies: Coded Allergies: NO KNOWN ALLERGIES (Unverified , 05/30/25) Current Medications Current Medications Medications (Trade) Dose Ordered Sig/Philip Route PRN Reason Start Time Stop Time Status Last Admin Insulin Human Regular (InsuLIN R) HS SC 05/31/25 22:00 05/31/25 21:18 Vancomycin HCl 100 ml @ 100 mls/hr Q12H IV 05/31/25 18:00 06/01/25 05:06 Insulin Glargine (Lantus) 15 units HS SC 05/31/25 22:00 06/01/25 07:05 DC 05/31/25 21:31 Pantoprazole Sodium (Protonix) 40 mg DAILY IV 06/01/25 10:00 06/01/25 10:52 Cefepime HCl 50 ml @ 12.5 mls/hr Q8HR IV 05/31/25 22:00 06/01/25 05:07 Insulin Glargine (Lantus) 20 units HS SC 06/01/25 22:00 Vital Signs Vital Signs Date Time Temp Pulse Resp B/P (MAP) Pulse Ox O2 Delivery O2 Flow Rate FiO2 06/01/25 09:00 98.5 91 17 90/56 (67) 98 98.5 06/01/25 08:00 Room Air* 0 21 Physical Exam Dermatological: Skin is dry with mild erythema and some maceration around the wound site No gross deformities noted Mild non-pitting edema present bilaterally Dry gangrene of the right hallux Vascular: Dorsalis pedis and posterior tibial pulses are 1+ bilaterally Capillary refill is under 2 seconds Skin temperature is warm bilaterally Neurologic: Protective sensation is absent on the plantar forefoot bilaterally Monofilament testing reveals decreased sensation in multiple plantar sites Musculoskeletal: Range of motion at the ankle and MTP joints is within normal limits. Strength is 5/5 in all tested muscle groups. Gait is antalgic due to offloading of the affected limb. Labs/Diagnostic Data Labs Test 06/01/25 11:51 06/01/25 06:47 05/31/25 17:23 05/31/25 04:53 Range/Units POC Glucose 271 H 70-106 mg/dl White Blood Count 11.6 H 4.4-10.8 10^3/uL Red Blood Count 4.04 L 4.5-5.90 10^6/uL Hemoglobin 13.9 13.5-17.5 g/dL Hematocrit 39.1 L 41.0-53.0 % Mean Corpuscular Volume 97.0 80.0-100.0 fL Mean Corpuscular Hemoglobin 34.4 H 28.0-32.0 pg Mean Corpuscular Hemoglobin Concent 35.5 32.0-36.0 g/dL Red Cell Distribution Width 13.2 11.8-14.3 % Platelet Count 236 140-450 10^3/uL Mean Platelet Volume 10.1 6.9-10.8 fL Neutrophils (%) (Auto) 66.7 37.0-80.0 % Lymphocytes (%) (Auto) 20.9 10.0-50.0 % Monocytes (%) (Auto) 10.3 0.0-12.0 % Eosinophils (%) (Auto) 0.9 0.0-7.0 % Basophils (%) (Auto) 1.2 0.0-2.0 % Neutrophils # (Auto) 7.8 1.6-8.6 10 ^3/uL Lymphocytes # (Auto) 2.4 0.4-5.4 10 ^3/uL Monocytes # (Auto) 1.2 0-1.3 10 ^3/uL Eosinophils # (Auto) 0.1 0-0.8 10 ^3/uL Basophils # (Auto) 0.1 0-0.2 10 ^3/uL Nucleated Red Blood Cells 0.0 % Sodium Level 137 # 136-145 mmol/L Potassium Level 3.5 3.5-5.1 mmol/L Chloride Level 104 # 98-107 mmol/L Carbon Dioxide Level 24 20-31 mmol/L Anion Gap 9 5-15 Blood Urea Nitrogen 6 #L 9-23 mg/dL Creatinine 0.90 0.700-1.30 mg/dL Glomerular Filtration Rate Calc 92 >90 mL/min BUN/Creatinine Ratio 6.7 L 10.0-20.0 Serum Glucose 158 #H 74-106 mg/dL Calcium Level 8.6 L 8.7-10.4 mg/dL Total Bilirubin 0.8 0.2-1.0 mg/dL Aspartate Amino Transferase (AST) 37 13-40 U/L Alanine Aminotransferase (ALT) 21 7-40 U/L Alkaline Phosphatase 140 H 46-116 U/L Total Protein 6.1 5.7-8.2 g/dL Albumin 3.5 3.2-4.8 g/dL B-Type Natriuretic Peptide 76.47 0-100 pg/mL Erythrocyte Sedimentation Rate 29 H 0-20 mm/hr Prothrombin Time 11.0 9.3-11.8 sec Prothrombin Time INR 1.04 0.9-1.15 Activated Partial Thromboplast Time 25.3 24.5-34.5 SEC Hemoglobin A1c > 14.0 H <5.7 % A1C Lactic Acid Level 2.0 0.4-2.0 mmol/L C-Reactive Protein High Sensitivity 6.72 H <1.0 mg/dL Thyroid Stimulating Hormone (TSH) 1.51 0.55-4.78 uIU/mL Test 05/31/25 00:14 05/30/25 21:41 Range/Units Urine Color Colorless Yellow Urine Clarity Clear Clear Urine pH 6.0 5.0-9.0 Urine Specific [place] 1.026 1.001-1.035 Urine Protein Negative Negative Urine Ketones 1+ H Negative Urine Blood Negative Negative /uL Urine Nitrite Negative Negative Urine Bilirubin Negative Negative Urine Urobilinogen Normal Negative mg/dL Urine Leukocyte Esterase Negative Negative /uL Urine RBC 2 0 - 3 /hpf Urine Microscopic WBC 1 0-3 /HPF Urine Squamous Epithelial Cells None seen <5 /hpf Urine Bacteria None seen None Seen /hpf Urine Creatinine 15.37 L 30.0-125.0 mg/dL Urine Protein/Creatinine Ratio 0.39 Urine Glucose 4+ H Normal mg/dL Urine Total Protein < 6.0 1-14 mg/dL Urine Opiates Screen Pos NEGATIVE Urine Fentanyl Screen Neg NEGATIVE Urine Barbiturates Screen Neg NEGATIVE Urine Phencyclidine Screen Neg NEGATIVE Urine Amphetamines Screen Neg NEGATIVE Urine Benzodiazepines Screen Neg NEGATIVE Urine Cocaine Screen Neg NEGATIVE Urine Cannabinoids Screen Neg NEGATIVE Lipase 29 12-53 U/L Microbiology Date/Time Source Procedure Growth Status 05/30/25 21:41 Blood Blood Culture - Preliminary NO GROWTH AFTER 24 HOURS OF INCUBATION. Resulted Problems(with codes): (1) Cholelithiasis (2) Cellulitis of right foot (3) Type 2 diabetes mellitus with hyperglycemia (4) IVC thrombosis (5) Generalized abdominal pain (6) Dry gangrene Plan/Recommendation ASSESSMENT: Patient is a 70 year old seen on the floor for a worsening ulcer PLAN: - The patients chart was reviewed, clinical findings were discussed with the patient, the etiologies of the conditions were discussed in detail, and a treatment plan was agreed to at this time, with both oral and written instructions provided. - reviewed advanced imaging - discussed that if unable to improve blood flow to right foot would need a more proximal amputation - if perform any amputation at this point unlikely to heal - recommend vascular optimization - consider CTA and then see vasculars recommendation - could remove the toe but again there is concern about healing potential All questions were answered and concerns addressed to the patient's sa tisfaction. The patient was given the phone number to the clinic and was told how to make contact with the clinic should any concerns or questions arise. Patient understands that if any questions or concerns arise prior to the next appointment, we should be contacted immediately. FOLLOW-UP: Continue to follow while inpatient Plan discussed with: Patient Visit Coding Podiatry Date of Service if different f: Jun 01, 2025 Billing Provider: VIRGINIA FREY DPM Podiatry Common Visit Codes: CONSULT ONLY Podiatry Consult Codes: 36095-PB/OBS [id number] NEW/EST HI 80 VIRGINIA FREY DPM Jun 01, 2025 13:16
[2025-06-01] MEDS: IOHEXOL 350 MG/ML 100ML IJ ONE (17:54)
--- NOTE | 2025-06-01 18:27 | DVHPNRES ---
Progress Note Date Seen: Jun 01, 2025 Resident Creating Document: UVALDO HARRINGTON RESIDENT Medical Necessity Reason Pt with a Central, PICC or Fol: No Subjective Review of Systems 70-year-old with a past medical history of diabetes and hypertension came to the emergency with complaints of right upper quadrant pain and black discoloration of the right 1st hallux. patient reported that he had right upper quadrant pain for a few days now but yesterday it increased, is a stabbing type, radiates to the epigastric region, 10/ 10 in intensity, not associated with any aggravating or relieving factors. It was not associated with any nausea, vomiting, diarrhea, chills, fever. Patient also reports that his right tip of the toe has become black since the last 2 months and he sometimes feels shooting pain. [facility]. Patient has a [id number]-ewf-cdsy amputation of the left leg and is in home hospice. PMH: Diabetes type 2, hypertension PSH: Hernia repair, left spxxs-vvd-[id number] amputation Social history: Patient lives with family. He denies any smoking, alcohol or taking any illicit drugs. family history: Reviewed and noncontributory to the management of the case Allergies: None ROS: Patient was seen by me at the emergency bedside. Patient's son was present. Patient reports that there is a shooting pain in his right toe. He still complains of right upper quadrant pain . Palacios sign was positive. CT scan shows presence of cholelithiasis, but ultrasound is negative for it. x-ray of the foot shows 1st digit subungual gas consistent with probable infectious process. duplex scan shows: There is monophasic waveform in the right dorsalis pedis. venous Doppler shows no femoral popliteal venous thrombosis. Podiatry consult, pending . IR consulted for possible IVC thrombus. Patient's HbA1c is more than 14 we have put him in moderate sliding scale insulin and insulin Lantus 15 units HS. 06/01/2025: Patient was seen by me at the bedside. Patient has no new active complaints. Podiatry consult suggested CT. CT with runoff has been ordered, results pending. Objective vital signs Vital Sign Date Time Temp Pulse Resp B/P (MAP) Pulse Ox O2 Delivery O2 Flow Rate FiO2 06/01/25 17:00 97.8 79 16 113/72 (86) 95 97.8 06/01/25 08:00 Room Air* 0 21 Total Intake and Output 05/31/25 05/31/25 06/01/25 15:00 23:00 07:00 Intake Total 50 ml 500 ml 150 ml Output Total 400 ml Balance 50 ml 500 ml -250 ml medications Current Medications Medications Dose Ordered Sig/Philip Route Start Time Stop Time Status Last Admin Dose Admin Vancomycin HCl 0 ml @ 0 mls/hr UD IV 05/31/25 04:45 Acetaminophen/ Hydrocodone Bitart 1 tab Q4HP PRN PO 05/31/25 07:45 06/01/25 11:58 1 TAB Ondansetron HCl 4 mg Q4HP PRN IV 05/31/25 07:45 Docusate Sodium 100 mg BIDPRN PRN PO 05/31/25 07:45 Acetaminophen 650 mg Q6HP PRN PO 05/31/25 07:45 Nitroglycerin 0.4 mg Q5MINP PRN SL 05/31/25 07:45 Morphine Sulfate 2 mg Q30M PRN IV 05/31/25 07:45 Enoxaparin Sodium 70 mg Q12HR SC 05/31/25 10:00 UNV Diagnostic Test (Pha) 1 strip ACHS 05/31/25 11:30 06/01/25 17:00 1 STRIP Insulin Human Regular HS SC 05/31/25 22:00 05/31/25 21:18 4 UNITS Insulin Human Regular AC SC 05/31/25 11:30 06/01/25 17:00 3 UNITS Dextrose 50 ml UD PRN IV 05/31/25 08:15 Enoxaparin Sodium 70 mg BID SC 05/31/25 10:00 06/01/25 10:52 70 MG Vancomycin HCl 100 ml @ 100 mls/hr Q12H IV 05/31/25 18:00 06/01/25 05:06 100 MLS/HR Pantoprazole Sodium 40 mg DAILY IV 06/01/25 10:00 06/01/25 10:52 40 MG Cefepime HCl 50 ml @ 12.5 mls/hr Q8HR IV 05/31/25 22:00 06/01/25 14:17 12.5 MLS/HR Insulin Glargine 20 units HS SC 06/01/25 22:00 Examination Pt is lying on bed General Appearance: Alert, Oriented X3, Cooperative, Not in acute distress HEENT: Atraumatic, Mucous membranes moist/pink Respiratory: Clear to auscultation, Normal air movement, No added sounds Cardiovascular: Regular rate, Normal S1, Normal S2, No murmurs Abdominal: Active bowel sounds, Soft, no distention, Palacios's sign positive Extremities: No edema, Normal pulses, Cqxbv-kay-ypjw amputation on the left leg, dry gangrene, black skin on the tip of the right 1st hallux, Erythema resent below the dry gangrene and 1st metatarsal joint Skin: No Significant rash, except past surgical scars Neuro: Normal speech, sensorimotor deficits none Psych/Mental Status: Mental status NL, Mood NL Nurse was there as sap fico architect during examination laboratory and microbiology Laboratory Tests 06/01/25 06:47 Test 06/01/25 06:47 Range/Units Serum Glucose 158 #H 74-106 mg/dL Microbiology Date/Time Source Procedure Growth Status 05/30/25 21:41 Blood Blood Culture - Preliminary NO GROWTH AFTER 24 HOURS OF INCUBATION. 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 No definite radiographic evidence of osteomyelitis; Moderate hallux valgus; Minimal plantar and retrocalcaneal enthesopathy; Soft tissues are unremarkable. Atherosclerotic vascular calcifications. -Venous Doppler showed: No right femoropopliteal venous thrombosis. -Right foot CT without contrast shows: 1. Moderate subcutaneous edema in the great toe with prominent locules of gas adjacent to and within the distal phalanx, likely due to necrosis. Necrotizing infection not excluded.b Can not exclude osteomyelitis in the distal phalanx. 2. Wound of the plantar aspect of the calcaneus with adjacent subcutaneous edema, possible cellulitis in the appropriate clinical setting. No evidence for abscess or osteomyelitis in this location on CT. If clinically indicated, MRI could be considered. 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 No definite radiographic evidence of osteomyelitis; Moderate hallux valgus; Minimal plantar and retrocalcaneal enthesopathy; Soft tissues are unremarkable. Atherosclerotic vascular calcifications. -Venous Doppler showed: No right femoropopliteal venous thrombosis. -Right foot CT without contrast shows: 1. Moderate subcutaneous edema in the great toe with prominent locules of gas adjacent to and within the distal phalanx, likely due to necrosis. Necrotizing infection not excluded.b Can not exclude osteomyelitis in the distal phalanx. 2. Wound of the plantar aspect of the calcaneus with adjacent subcutaneous edema, possible cellulitis in the appropriate clinical setting. No evidence for abscess or osteomyelitis in this location on CT. If clinically indicated, MRI could be considered. - ESR 29, CRP 6.72 -patient is foot is warm, he can wiggle his toes, can flex and extend his toes - Wound consult -doppler usg done and "whooshing" sound heard both in the dorsalis pedis and posterior tibial artery -IV vancomycin and IV cefepime started 05/31 - podiatry consult suggests CTA before podiatry intervention. 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 The thrombus extends to the intrahepatic IVC so the is not a good place to place IVC filter. 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 # uncontrolled Diabetes mellitus type 2, HbA1c >14 -UA shows +1 ketones, +4 glucose -Moderate sliding scale insulin -Insulin Lantus 15 units HS # MARY due to VMN -received IV fluids on admission GI prophylaxis: 40 mg IV daily DVT prophylaxis: Lovenox 70 mg b.i.d. D Diet: cardiac diet Goals of care discussed with the patient's son at bedside for more than 27 minutes: Full code status Case discussed with Dr. Mann, patient, patient's son and nurse. Plan discussed with: Patient, Other (rn) My Orders My Orders Orders - UVALDO HARRINGTON Procedure Category Date Status Time Consistent DIET 06/01/25 Transmitted Carb(Ccho)Diabetes Dinner Ct Angio Abd Aorta W CT 06/01/25 Taken Run Off 14:00 Date of Service: Jun 01, 2025 Billing Provider: ELIAS BOB MD Common Visit Codes: [id number] INP/OBS CARE(HIGH) UVALDO HARRINGTON Jun 01, 2025 18:27 ELIAS BOB MD Jun 02, 2025 00:59
[2025-06-01] MEDS: VANCOMYCIN 750MG KIT 100 ML IV SCH (20:04)
--- NOTE | 2025-06-01 21:00 | DVH ---
Examination: CT CT ANGIO ABD AORTA W RUN OFF CLINICAL HISTORY: duplex- monophasic waveform in the rt dorsalis ped Comparison: Bilateral lower extremity artery duplex from yesterday. Technique: Using helical technique, CT data from the lung bases through the toes was obtained during rapid IV contrast infusion. The examination was timed to the arterial system to generate a CT angiogr aphic study. 3D images were generated at an independent work station. Dose reduction techniques inclu ded automated exposure control. Radiation Dose Information: CT Dose: CTDI volume is 10.28 mGy. Dose-length product is 1419.55 mGy*cm Findings: Abdominal aorta: Normal caliber, patent Celiac artery: Patent SMA: Patent Renal arteries: Patent BULMARO: Patent Right lower extremity: Common iliac artery: Patent External iliac artery: Patent Internal iliac artery: Patent Common femoral artery: Patent Profunda femoral artery: Patent Superficial femoral artery: Patent The popliteal artery and below-knee arteries are not adequately assessed due to suboptimal contrast b olus and extensive vascular calcifications. Left lower extremity: Common iliac artery: Patent External iliac artery: Patent Internal iliac artery: Patent Common femoral artery: Patent Profunda femoral artery: Patent Superficial femoral artery: Patent Popliteal artery: Patent Below this is surgically absent. Chest: Lungs/Pleura:No focal parenchymal process. No suspicious pulmonary nodules. No pleural effusion or fo dayami pleural lesion. Axilla/Soft Tissue: No supraclavicular or axillary adenopathy. Regional soft tissues are within deisy l limits. Mediastinum:Visualized thyroid is normal. No pathologic mediastinal or hilar adenopathy. Esophagus i s normal. Trachea and proximal bronchi are normal. Heart: The heart is normal in size. No pericardial effusion. Abdomen/Pelvis: Liver: The liver is normal in size and morphology,. No focal hepatic lesion. The portal veins are pat ent. Biliary System: Gallbladder: Cholelithiasis. Bile Ducts: No intrahepatic or extrahepatic biliary ductal dilation. Spleen: No splenomegaly or focal splenic lesion. Pancreas: No masses or ductal dilation. Adrenals: Normal. Urinary System: Kidneys and Ureters: Normal in size and location. No renal masses. No renal or ureteral calculi. No hydronephrosis or hydroureter. Bladder: Normal. GI System: Stomach, small bowel, and large bowel are normal in caliber without wall thickening or dil ation Appendix is normal. Vasculature: Arteries: Abdominal aorta is normal in caliber. Splanchnic arteries are proximally patent. Lymph nodes: No lymphadenopathy. Peritoneal cavity and surface: No free fluid. No pneumoperitoneum. Soft Tissues: Soft tissue swelling and locules of gas are seen in the right toe which may reflect nec rotizing infectious/inflammatory process. Reproductive Organs: Normal. Bones: Status post left hip arthroplasty. Status post left below-knee amputation Impression: Right lower extremity arteries: The above knee arteries are patent. The popliteal artery and below-kn ee arteries are not adequately assessed due to suboptimal contrast bolus and extensive vascular calci fications. Left lower extremity arteries: No evidence of acute arterial insufficiency. Status post below-knee am putation. Cholelithiasis. Soft tissue swelling and locules of gas are seen in the right toe which may reflect necrotizing infec tious/inflammatory process.
[2025-06-01] MEDS: INSULIN LANTUS (GLARGINE) 1 /0.01ml (100units/ml) SC SCH (21:21)
[2025-06-02] VITALS (8 sets, daily range): BP systolic 116–160; BP diastolic 69–95; PULSE 76–95; RESP 16–18; TEMP 97.8–99.2; O2SAT 95–98
[2025-06-02 08:14] LABS: Hematocrit 39.9 % (41.0-53.0); Hemoglobin 14.1 g/dL (13.5-17.5); Mean Corpuscular Hemoglobin 34.3 pg (28.0-32.0); Mean Corpuscular Volume 96.9 fL (80.0-100.0); Nucleated Red Blood Cells % 0.0 %
[2025-06-02 08:21] LABS: Alanine Aminotransferase 20 U/L (7-40); Anion Gap 8 (5-15); BUN/Creatinine Ratio 8.2 (10.0-20.0); Carbon Dioxide 26 mmol/L (20-31); Chloride 104 mmol/L (98-107); Glucose 104 mg/dL (74-106); Potassium 3.6 mmol/L (3.5-5.1); Sodium 138 mmol/L (136-145); Total Protein 6.3 g/dL (5.7-8.2)
[2025-06-02 08:22] LABS: Albumin 3.5 g/dL (3.2-4.8)
[2025-06-02 08:23] LABS: Bilirubin, Total 0.8 mg/dL (0.2-1.0)
[2025-06-02 08:26] LABS: Alkaline Phosphatase 151 U/L (46-116); Blood Urea Nitrogen 8 mg/dL (9-23); Calcium 8.7 mg/dL (8.7-10.4)
--- NOTE | 2025-06-02 11:11 | DVHPNRES ---
Progress Note Date Seen: Jun 02, 2025 Resident Creating Document: UVALDO HARRINGTON RESIDENT Medical Necessity Reason Pt with a Central, PICC or Fol: No Subjective Review of Systems 70-year-old with a past medical history of diabetes and hypertension came to the emergency with complaints of right upper quadrant pain and black discoloration of the right 1st hallux. patient reported that he had right upper quadrant pain for a few days now but yesterday it increased, is a stabbing type, radiates to the epigastric region, 10/ 10 in intensity, not associated with any aggravating or relieving factors. It was not associated with any nausea, vomiting, diarrhea, chills, fever. Patient also reports that his right tip of the toe has become black since the last 2 months and he sometimes feels shooting pain. He has been going to [facility] to get it cleaned. Patient has a hmync-gqz-jusp amputation of the left leg and is in home hospice. PMH: Diabetes type 2, hypertension PSH: Hernia repair, left tjtxb-iqw-zdmv amputation Social history: Patient lives with family. He denies any smoking, alcohol or taking any illicit drugs. family history: Reviewed and noncontributory to the management of the case Allergies: None ROS: Patient was seen by me at the emergency bedside. Patient's son was present. Patient reports that there is a shooting pain in his right toe. He still complains of right upper quadrant pain . Palacios sign was positive. CT scan shows presence of cholelithiasis, but ultrasound is negative for it. x-ray of the foot shows 1st digit subungual gas consistent with probable infectious process. duplex scan shows: There is monophasic waveform in the right dorsalis pedis. venous Doppler shows no femoral popliteal venous thrombosis. Podiatry consult, pending . IR consulted for possible IVC thrombus. Patient's HbA1c is more than 14 we have put him in moderate sliding scale insulin and insulin Lantus 15 units HS. 06/01/2025: Patient was seen by me at the bedside. Patient has no new active complaints. Podiatry consult suggested CT. CTA with runoff has been ordered, results pending. 06/02/2025: Patient was seen by me at the bedside. Patient complained of pain in his foot today and was given [place]. CTA with runoff shows the popliteal artery and below knee arteries are adequately assess due to suboptimal contrast bolus and extensive vascular calcification. We had conducted Doppler day before yesterday which showed a whooshing sound in both dorsalis pedis and posterior tibial artery. Informed Dr. Guadarrama regarding all results. Consult with vascular surgery, pending regarding CTA and evaluation for angiogram. Objective vital signs Vital Sign Date Time Temp Pulse Resp B/P (MAP) Pulse Ox O2 Delivery O2 Flow Rate FiO2 06/02/25 09:00 98.1 80 17 138/84 (102) 96 98.1 06/02/25 08:00 Room Air* 0 21 Total Intake and Output 06/01/25 06/01/25 06/02/25 15:00 23:00 07:00 Intake Total 1775 ml 150 ml Output Total 400 ml 80 ml Balance 1375 ml 70 ml medications Current Medications Medications Dose Ordered Sig/Philip Route Start Time Stop Time Status Last Admin Dose Admin Vancomycin HCl 0 ml @ 0 mls/hr UD IV 05/31/25 04:45 Acetaminophen/ Hydrocodone Bitart 1 tab Q4HP PRN PO 05/31/25 07:45 06/02/25 07:02 1 TAB Ondansetron HCl 4 mg Q4HP PRN IV 05/31/25 07:45 Docusate Sodium 100 mg BIDPRN PRN PO 05/31/25 07:45 Acetaminophen 650 mg Q6HP PRN PO 05/31/25 07:45 Nitroglycerin 0.4 mg Q5MINP PRN SL 05/31/25 07:45 Morphine Sulfate 2 mg Q30M PRN IV 05/31/25 07:45 Enoxaparin Sodium 70 mg Q12HR SC 05/31/25 10:00 UNV Diagnostic Test (Pha) 1 strip ACHS 05/31/25 11:30 06/02/25 05:23 1 STRIP Insulin Human Regular HS SC 05/31/25 22:00 06/01/25 21:20 6 UNITS Insulin Human Regular AC SC 05/31/25 11:30 06/02/25 05:54 2 UNITS Dextrose 50 ml UD PRN IV 05/31/25 08:15 Enoxaparin Sodium 70 mg BID SC 05/31/25 10:00 06/02/25 09:36 70 MG Pantoprazole Sodium 40 mg DAILY IV 06/01/25 10:00 06/02/25 09:36 40 MG Cefepime HCl 50 ml @ 12.5 mls/hr Q8HR IV 05/31/25 22:00 06/02/25 05:18 12.5 MLS/HR Insulin Glargine 20 units HS SC 06/01/25 22:00 06/01/25 21:21 20 UNITS Vancomycin HCl 100 ml @ 100 mls/hr Q12H IV 06/01/25 20:00 06/02/25 08:03 100 MLS/HR laboratory and microbiology Laboratory Tests 06/02/25 07:05 Test 06/02/25 07:05 Range/Units Serum Glucose 104 74-106 mg/dL Microbiology Date/Time Source Procedure Growth Status 05/30/25 21:41 Blood Blood Culture - Preliminary NO GROWTH AFTER 48 HOURS OF INCUBATION. 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 No definite radiographic evidence of osteomyelitis; Moderate hallux valgus; Minimal plantar and retrocalcaneal enthesopathy; Soft tissues are unremarkable. Atherosclerotic vascular calcifications. -Venous Doppler showed: No right femoropopliteal venous thrombosis. -Right foot CT without contrast shows: 1. Moderate subcutaneous edema in the great toe with prominent locules of gas adjacent to and within the distal phalanx, likely due to necrosis. Necrotizing infection not excluded.b Can not exclude osteomyelitis in the distal phalanx. 2. Wound of the plantar aspect of the calcaneus with adjacent subcutaneous edema, possible cellulitis in the appropriate clinical setting. No evidence for abscess or osteomyelitis in this location on CT. If clinically indicated, MRI could be considered. - ESR 29, CRP 6.72 -patient is foot is warm, he can wiggle his toes, can flex and extend his toes - Wound consult -doppler usg done and "whooshing" sound heard both in the dorsalis pedis and posterior tibial artery -IV vancomycin and IV cefepime started 05/31 - podiatry consult suggests CTA before podiatry intervention. -CTA with runoff, showed: Right lower extremity arteries: The above knee arteries are patent. The popliteal artery and below-knee arteries are not adequately assessed due to suboptimal contrast bolus and extensive vascular calcifications; Left lower extremity arteries: No evidence of acute arterial insufficiency. Status post below-knee amputation;Soft tissue swelling and locules of gas are seen in the right toe which may reflect necrotizing infectious/inflammatory process. -Consult with vascular surgery, pending regarding CTA and evaluation for angiogram. 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 The thrombus extends to the intrahepatic IVC so the is not a good place to place IVC filter. 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 # uncontrolled Diabetes mellitus type 2, HbA1c >14 -UA shows +1 ketones, +4 glucose -Moderate sliding scale insulin -Insulin Lantus 15 units HS # MARY due to VMN -received IV fluids on admission GI prophylaxis: 40 mg IV daily DVT prophylaxis: Lovenox 70 mg b.i.d. D Diet: cardiac diet Goals of care discussed with the patient's son at bedside for more than 27 minutes: Full code status Case discussed with Dr. Mann, patient, patient's son and nurse. Plan discussed with: Patient, Other (rn) My Orders My Orders Orders - UVALDO HARRINGTON Procedure Category Date Status Time Consistent DIET 06/01/25 [facility] Dinner Ct Angio Abd Aorta W CT 06/01/25 Resulted Run Off 14:00 Date of Service: Jun 02, 2025 Billing Provider: ELIAS BOB MD Common Visit Codes: [id number] INP/OBS CARE(HIGH) UVALDO HARRINGTON Jun 02, 2025 11:11 ELIAS BOB MD Jun 06, 2025 16:44
[2025-06-03] VITALS (8 sets, daily range): BP systolic 103–150; BP diastolic 74–96; PULSE 72–94; RESP 16–18; TEMP 97.8–98.4; O2SAT 95–99
[2025-06-03 08:18] LABS: Alanine Aminotransferase 20 U/L (7-40); Albumin 3.5 g/dL (3.2-4.8); Anion Gap 11 (5-15); BUN/Creatinine Ratio 7.1 (10.0-20.0); Calcium 8.8 mg/dL (8.7-10.4); Carbon Dioxide 25 mmol/L (20-31); Chloride 104 mmol/L (98-107); Glucose 102 mg/dL (74-106); Sodium 140 mmol/L (136-145); Total Protein 6.1 g/dL (5.7-8.2)
[2025-06-03 08:19] LABS: Bilirubin, Total 1.0 mg/dL (0.2-1.0)
[2025-06-03 08:25] LABS: Alkaline Phosphatase 151 U/L (46-116); Blood Urea Nitrogen 6 mg/dL (9-23); Potassium 3.5 mmol/L (3.5-5.1)
[2025-06-03 08:30] LABS: Hematocrit 40.3 % (41.0-53.0); Hemoglobin 13.9 g/dL (13.5-17.5); Mean Corpuscular Hemoglobin 33.6 pg (28.0-32.0); Mean Corpuscular Volume 97.4 fL (80.0-100.0); Nucleated Red Blood Cells % 0.1 %
--- NOTE | 2025-06-03 12:40 | DVHPNRES ---
Progress Note Date Seen: Jun 03, 2025 Resident Creating Document: UVALDO HARRINGTON RESIDENT Medical Necessity Reason Pt with a Central, PICC or Fol: No Subjective Review of Systems 70-year-old with a past medical history of diabetes and hypertension came to the emergency with complaints of right upper quadrant pain and black discoloration of the right 1st hallux. patient reported that he had right upper quadrant pain for a few days now but yesterday it increased, is a stabbing type, radiates to the epigastric region, 10/ 10 in intensity, not associated with any aggravating or relieving factors. It was not associated with any nausea, vomiting, diarrhea, chills, fever. Patient also reports that his right tip of the toe has become black since the last 2 months and he sometimes feels shooting pain. He has been going [facility] get it [facility]. Patient has a [id number] amputation of the left leg and is in home hospice. PMH: Diabetes type 2, hypertension PSH: Hernia repair, left [id number] amputation Social history: Patient lives with family. He denies any smoking, alcohol or taking any illicit drugs. family history: Reviewed and noncontributory to the management of the case Allergies: None ROS: Patient was seen by me at the emergency bedside. Patient's son was present. Patient reports that there is a shooting pain in his right toe. He still complains of right upper quadrant pain . Palacios sign was positive. CT scan shows presence of cholelithiasis, but ultrasound is negative for it. x-ray of the foot shows 1st digit subungual gas consistent with probable infectious process. duplex scan shows: There is monophasic waveform in the right dorsalis pedis. venous Doppler shows no femoral popliteal venous thrombosis. Podiatry consult, pending . IR consulted for possible IVC thrombus. Patient's HbA1c is more than 14 we have put him in moderate sliding scale insulin and insulin Lantus 15 units HS. 06/01/2025: Patient was seen by me at the bedside. Patient has no new active complaints. Podiatry consult suggested CT. CT with runoff has been ordered, results pending. 06/02/2025: Patient was seen by me at the bedside. Patient complained of pain in his foot today and was given [place]. CTA with runoff shows the popliteal artery and below knee arteries are adequately assess due to suboptimal contrast bolus and extensive vascular calcification. We had conducted Doppler day before yesterday which showed a whooshing sound in both dorsalis pedis and posterior tibial artery. Informed Dr. Guadarrama regarding all results. Consult with vascular surgery, pending regarding CTA and evaluation for angiogram. 06/03/2025: Patient was seen by me at the bedside. Patient has no new active complaints. He says that his feet hurts him a little bit. Pending vascular surgery consult Objective vital signs Vital Sign Date Time Temp Pulse Resp B/P (MAP) Pulse Ox O2 Delivery O2 Flow Rate FiO2 06/03/25 09:00 98.0 80 17 127/75 (92) 97 98.0 06/03/25 08:15 Room Air* 0 21 Total Intake and Output 06/02/25 06/02/25 06/03/25 15:00 23:00 07:00 Intake Total 800 ml 300 ml Output Total 300 ml 650 ml Balance 500 ml -350 ml medications Current Medications Medications Dose Ordered Sig/Philip Route Start Time Stop Time Status Last Admin Dose Admin Vancomycin HCl 0 ml @ 0 mls/hr UD IV 05/31/25 04:45 Acetaminophen/ Hydrocodone Bitart 1 tab Q4HP PRN PO 05/31/25 07:45 06/03/25 10:13 1 TAB Ondansetron HCl 4 mg Q4HP PRN IV 05/31/25 07:45 Docusate Sodium 100 mg BIDPRN PRN PO 05/31/25 07:45 Acetaminophen 650 mg Q6HP PRN PO 05/31/25 07:45 Nitroglycerin 0.4 mg Q5MINP PRN SL 05/31/25 07:45 Morphine Sulfate 2 mg Q30M PRN IV 05/31/25 07:45 Enoxaparin Sodium 70 mg Q12HR SC 05/31/25 10:00 UNV Diagnostic Test (Pha) 1 strip ACHS 05/31/25 11:30 06/03/25 11:16 1 STRIP Insulin Human Regular HS SC 05/31/25 22:00 06/02/25 21:57 4 UNITS Insulin Human Regular AC SC 05/31/25 11:30 06/03/25 11:17 3 UNITS Dextrose 50 ml UD PRN IV 05/31/25 08:15 Enoxaparin Sodium 70 mg BID SC 05/31/25 10:00 06/03/25 08:55 70 MG Pantoprazole Sodium 40 mg DAILY IV 06/01/25 10:00 06/03/25 08:55 40 MG Cefepime HCl 50 ml @ 12.5 mls/hr Q8HR IV 05/31/25 22:00 06/03/25 06:01 12.5 MLS/HR Insulin Glargine 20 units HS SC 06/01/25 22:00 06/02/25 21:58 20 UNITS Vancomycin HCl 100 ml @ 200 mls/hr Q12H IV 06/03/25 21:00 Examination Pt is lying on bed General Appearance: Alert, Oriented X3, Cooperative, Not in acute distress HEENT: Atraumatic, Mucous membranes moist/pink Respiratory: Clear to auscultation, Normal air movement, No added sounds Cardiovascular: Regular rate, Normal S1, Normal S2, No murmurs Abdominal: Active bowel sounds, Soft, no distention, Palacios's sign positive Extremities: No edema, Normal pulses, [id number] amputation on the left leg, dry gangrene, black skin on the tip of the right 1st hallux, Erythema resent below the dry gangrene and 1st metatarsal joint Skin: No Significant rash, except past surgical scars Neuro: Normal speech, sensorimotor deficits none Psych/Mental Status: Mental status NL, Mood NL Nurse was there as telephone operators supervisor during examination laboratory and microbiology Laboratory Tests 06/03/25 06:50 Test 06/03/25 06:50 Range/Units Serum Glucose 102 74-106 mg/dL Microbiology Date/Time Source Procedure Growth Status 05/30/25 21:41 Blood Blood Culture - Preliminary NO GROWTH AFTER 72 HOURS OF INCUBATION. 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 No definite radiographic evidence of osteomyelitis; Moderate hallux valgus; Minimal plantar and retrocalcaneal enthesopathy; Soft tissues are unremarkable. Atherosclerotic vascular calcifications. -Venous Doppler showed: No right femoropopliteal venous thrombosis. -Right foot CT without contrast shows: 1. Moderate subcutaneous edema in the great toe with prominent locules of gas adjacent to and within the distal phalanx, likely due to necrosis. Necrotizing infection not excluded.b Can not exclude osteomyelitis in the distal phalanx. 2. Wound of the plantar aspect of the calcaneus with adjacent subcutaneous edema, possible cellulitis in the appropriate clinical setting. No evidence for abscess or osteomyelitis in this location on CT. If clinically indicated, MRI could be considered. - ESR 29, CRP 6.72 -patient is foot is warm, he can wiggle his toes, can flex and extend his toes - Wound consult -doppler usg done and "whooshing" sound heard both in the dorsalis pedis and posterior tibial artery -IV vancomycin and IV cefepime started 05/31 - podiatry consult suggests CTA before podiatry intervention. -CTA with runoff, showed: Right lower extremity arteries: The above knee arteries are patent. The popliteal artery and below-knee arteries are not adequately assessed due to suboptimal contrast bolus and extensive vascular calcifications; Left lower extremity arteries: No evidence of acute arterial insufficiency. Status post below-knee amputation;Soft tissue swelling and locules of gas are seen in the right toe which may reflect necrotizing infectious/inflammatory process. -Consult with vascular surgery, pending regarding CTA and evaluation for angiogram. 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 The thrombus extends to the intrahepatic IVC so the is not a good place to place IVC filter. 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 # uncontrolled Diabetes mellitus type 2, HbA1c >14 -UA shows +1 ketones, +4 glucose -Moderate sliding scale insulin -Insulin Lantus 15 units HS # MARY due to VMN -received IV fluids on admission GI prophylaxis: 40 mg IV daily DVT prophylaxis: Lovenox 70 mg b.i.d. D Diet: cardiac diet Goals of care discussed with the patient's son at bedside for more than 27 minutes: Full code status Case discussed with Dr. Mann, patient, patient's son and nurse. Plan discussed with: Patient, Other (rn) My Orders My Orders Orders - UVALDO HARRINGTON Procedure Category Date Status Time Consult CONS 06/02/25 Transmitted Vascular/Endovascular 18:52 Dietary Evaluation Review Comments: Nutrition Recommendation 1) CCHO 60gm diet 2) Ryder 1 pk BID 3) Refer Truck Technician for diabetes education Expected Outcomes/Goals: Wound to improve Lab values to improve Fu 3-5 days Date of Service: Jun 03, 2025 Billing Provider: ELIAS BOB MD Common Visit Codes: 51499-[id number] INP/OBS CARE(HIGH) UVALDO HARRINGTON Jun 03, 2025 12:40 ELIAS BOB MD Jun 06, 2025 16:54
[2025-06-03] MEDS: VANCOMYCIN 500mg/100mL 100 ML IV SCH (21:27)
[2025-06-04] VITALS (8 sets, daily range): BP systolic 101–134; BP diastolic 65–91; PULSE 78–92; RESP 13–18; TEMP 97–99.2; O2SAT 95–99
--- NOTE | 2025-06-04 08:53 | DVH ---
Date: 06/04/2025 08:21 AM Examination: XY KUB ABDOMEN SINGLE VIEW History: not passing gas, rule out obstruction Comparison: XY KUB ABDOMEN SINGLE VIEW on DOS: 05/31/25, US ABDOMEN LIMITED on DOS: 05/31/25 TECHNIQUE: Frontal views of the abdomen was obtained. FINDINGS: Bowel gas pattern is unremarkable. The lung bases are unremarkable. No acute osseous abnormality identified. IMPRESSION: Nonobstructive bowel gas pattern. Large stool burden
[2025-06-04 08:57] LABS: Hematocrit 38.3 % (41.0-53.0); Hemoglobin 13.4 g/dL (13.5-17.5); Mean Corpuscular Hemoglobin 33.7 pg (28.0-32.0); Mean Corpuscular Volume 96.6 fL (80.0-100.0); Nucleated Red Blood Cells % 0.1 %
[2025-06-04 09:04] LABS: Anion Gap 10 (5-15); Carbon Dioxide 24 mmol/L (20-31); Chloride 104 mmol/L (98-107); Potassium 3.6 mmol/L (3.5-5.1); Sodium 138 mmol/L (136-145)
[2025-06-04 09:05] LABS: Calcium 8.9 mg/dL (8.7-10.4)
[2025-06-04 09:10] LABS: BUN/Creatinine Ratio 8.1 (10.0-20.0); Glucose 97 mg/dL (74-106)
[2025-06-04 09:14] LABS: Blood Urea Nitrogen 7 mg/dL (9-23)
[2025-06-04] MEDS: POLYETHYLENE GLYCOL 17 GM PWDR PO ONE (10:41)
--- NOTE | 2025-06-04 13:21 | DVH ---
CHEST RADIOGRAPH Indication: preop eval, pain Technique: Single frontal view of the chest was obtained Comparison: None FINDINGS: Lines and Tubes: None Lungs: No focal consolidation. Pleura: No effusion. No pneumothorax. Cardiomediastinal contours: Unremarkable Bones: No acute osseous abnormality. IMPRESSION: No acute cardiopulmonary disease.
[2025-06-04] MEDS: CLINDAMYCIN 300MG IV 50 ML IV SCH (13:52)
--- NOTE | 2025-06-04 14:04 | DVHINCON2 ---
Date of service: Jun 05, 2025 History of Present Illness 70 yo M on hospice admitted and now has gangrene /CLI of RLE> pt has BKA to LLE. pt speaks sammarinese and seen by upholstery auto trimmer Past Medical History reviewed Family History: Diabetes mellitus G8 MOTHER G8 FATHER Hypertension G8 MOTHER G8 FATHER Allergies: Coded Allergies: NO KNOWN ALLERGIES (Unverified , 05/30/25) Current Medications Current Medications Medications (Trade) Dose Ordered Sig/Philip Route PRN Reason Start Time Stop Time Status Last Admin Vancomycin HCl 100 ml @ 200 mls/hr Q12H IV 06/03/25 21:00 06/04/25 11:42 DC 06/04/25 08:34 Ceftriaxone Sodium 50 ml @ 100 mls/hr DAILY@09 IV 06/05/25 09:00 Clindamycin Phosphate 50 ml @ 50 mls/hr Q8HR IV 06/04/25 14:00 06/04/25 13:52 Review of Systems not obtained Vital Signs Vital Signs Date Time Temp Pulse Resp B/P (MAP) Pulse Ox O2 Delivery O2 Flow Rate FiO2 06/04/25 13:00 97.8 80 16 134/91 (105) 96 97.8 06/04/25 08:00 Room Air* 0 21 Physical Exam nad s1 s2 rrr ctab soft nt/nd RLE ,great toe black, thin foot, poor distal pulses Labs/Diagnostic Data Labs Test 06/04/25 07:53 06/04/25 06:20 06/03/25 06:50 05/31/25 17:23 Range/Units White Blood Count 12.6 H 4.4-10.8 10^3/uL Red Blood Count 3.97 L 4.5-5.90 10^6/uL Hemoglobin 13.4 L 13.5-17.5 g/dL Hematocrit 38.3 L 41.0-53.0 % Mean Corpuscular Volume 96.6 80.0-100.0 fL Mean Corpuscular Hemoglobin 33.7 H 28.0-32.0 pg Mean Corpuscular Hemoglobin Concent 34.9 32.0-36.0 g/dL Red Cell Distribution Width 12.8 11.8-14.3 % Platelet Count 308 140-450 10^3/uL Mean Platelet Volume 9.4 6.9-10.8 fL Neutrophils (%) (Auto) 62.9 37.0-80.0 % Lymphocytes (%) (Auto) 23.6 10.0-50.0 % Monocytes (%) (Auto) 11.0 0.0-12.0 % Eosinophils (%) (Auto) 1.6 0.0-7.0 % Basophils (%) (Auto) 0.9 0.0-2.0 % Neutrophils # (Auto) 7.9 1.6-8.6 10 ^3/uL Lymphocytes # (Auto) 3.0 0.4-5.4 10 ^3/uL Monocytes # (Auto) 1.4 H 0-1.3 10 ^3/uL Eosinophils # (Auto) 0.2 0-0.8 10 ^3/uL Basophils # (Auto) 0.1 0-0.2 10 ^3/uL Nucleated Red Blood Cells 0.1 % Sodium Level 138 136-145 mmol/L Potassium Level 3.6 3.5-5.1 mmol/L Chloride Level 104 98-107 mmol/L Carbon Dioxide Level 24 20-31 mmol/L Anion Gap 10 5-15 Blood Urea Nitrogen 7 L 9-23 mg/dL Creatinine 0.86 0.700-1.30 mg/dL Glomerular Filtration Rate Calc 94 >90 mL/min BUN/Creatinine Ratio 8.1 L 10.0-20.0 Serum Glucose 97 74-106 mg/dL Calcium Level 8.9 8.7-10.4 mg/dL POC Glucose 97 70-106 mg/dl Total Bilirubin 1.0 0.2-1.0 mg/dL Aspartate Amino Transferase (AST) 30 13-40 U/L Alanine Aminotransferase (ALT) 20 7-40 U/L Alkaline Phosphatase 151 H 46-116 U/L Total Protein 6.1 5.7-8.2 g/dL Albumin 3.5 3.2-4.8 g/dL Vancomycin Level Trough 18.1 H 5-10 ug/mL B-Type Natriuretic Peptide 76.47 0-100 pg/mL Test 05/31/25 04:53 05/31/25 00:14 05/30/25 21:41 Range/Units Erythrocyte Sedimentation Rate 29 H 0-20 mm/hr Prothrombin Time 11.0 9.3-11.8 sec Prothrombin Time INR 1.04 0.9-1.15 Activated Partial Thromboplast Time 25.3 24.5-34.5 SEC Hemoglobin A1c > 14.0 H <5.7 % A1C Lactic Acid Level 2.0 0.4-2.0 mmol/L C-Reactive Protein High Sensitivity 6.72 H <1.0 mg/dL Thyroid Stimulating Hormone (TSH) 1.51 0.55-4.78 uIU/mL Urine Color Colorless Yellow Urine Clarity Clear Clear Urine pH 6.0 5.0-9.0 Urine Specific [place] 1.026 1.001-1.035 Urine Protein Negative Negative Urine Ketones 1+ H Negative Urine Blood Negative Negative /uL Urine Nitrite Negative Negative Urine Bilirubin Negative Negative Urine Urobilinogen Normal Negative mg/dL Urine Leukocyte Esterase Negative Negative /uL Urine RBC 2 0 - 3 /hpf Urine Microscopic WBC 1 0-3 /HPF Urine Squamous Epithelial Cells None seen <5 /hpf Urine Bacteria None seen None Seen /hpf Urine Creatinine 15.37 L 30.0-125.0 mg/dL Urine Protein/Creatinine Ratio 0.39 Urine Glucose 4+ H Normal mg/dL Urine Total Protein < 6.0 1-14 mg/dL Urine Opiates Screen Pos NEGATIVE Urine Fentanyl Screen Neg NEGATIVE Urine Barbiturates Screen Neg NEGATIVE Urine Phencyclidine Screen Neg NEGATIVE Urine Amphetamines Screen Neg NEGATIVE Urine Benzodiazepines Screen Neg NEGATIVE Urine Cocaine Screen Neg NEGATIVE Urine Cannabinoids Screen Neg NEGATIVE Lipase 29 12-53 U/L Microbiology Date/Time Source Procedure Growth Status 05/30/25 21:41 Blood Blood Culture - Preliminary NO GROWTH AFTER 72 HOURS OF INCUBATION. 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
--- NOTE | 2025-06-04 18:32 | DVHPNRES ---
Progress Note Date Seen: Jun 04, 2025 Resident Creating Document: UVALDO HARRINGTON RESIDENT Medical Necessity Reason Pt with a Central, PICC or Fol: No Subjective Review of Systems 70-year-old with a past medical history of diabetes and hypertension came to the emergency with complaints of right upper quadrant pain and black discoloration of the right 1st hallux. patient reported that he had right upper quadrant pain for a few days now but yesterday it increased, is a stabbing type, radiates to the epigastric region, 10/ 10 in intensity, not associated with any aggravating or relieving factors. It was not associated with any nausea, vomiting, diarrhea, chills, fever. Patient also reports that his right tip of the toe has become black since the last 2 months and he sometimes feels shooting pain. [facility] get [facility]. Patient has a hlbwk-[id number] amputation of the left leg and is in home hospice. PMH: Diabetes type 2, hypertension PSH: Hernia repair, left [id number]-[id number]-obrt amputation Social history: Patient lives with family. He denies any smoking, alcohol or taking any illicit drugs. family history: Reviewed and noncontributory to the management of the case Allergies: None ROS: Patient was seen by me at the emergency bedside. Patient's son was present. Patient reports that there is a shooting pain in his right toe. He still complains of right upper quadrant pain . Palacios sign was positive. CT scan shows presence of cholelithiasis, but ultrasound is negative for it. x-ray of the foot shows 1st digit subungual gas consistent with probable infectious process. duplex scan shows: There is monophasic waveform in the right dorsalis pedis. venous Doppler shows no femoral popliteal venous thrombosis. Podiatry consult, pending . IR consulted for possible IVC thrombus. Patient's HbA1c is more than 14 we have put him in moderate sliding scale insulin and insulin Lantus 15 units HS. 06/01/2025: Patient was seen by me at the bedside. Patient has no new active complaints. Podiatry consult suggested CT. CT with runoff has been ordered, results pending. 06/02/2025: Patient was seen by me at the bedside. Patient complained of pain in his foot today and was given [place]. CTA with runoff shows the popliteal artery and below knee arteries are adequately assess due to suboptimal contrast bolus and extensive vascular calcification. We had conducted Doppler day before yesterday which showed a whooshing sound in both dorsalis pedis and posterior tibial artery. Informed Dr. Guadarrama regarding all results. Consult with vascular surgery, pending regarding CTA and evaluation for angiogram. 06/03/2025:Patient was seen by me at the bedside. Patient has no new active complaints. He says that his feet hurts him a little bit. Pending vascular surgery consult 06/04:Patient was seen by me at the bedside. Today the patient reported that he has not passed stool for 4 days. He also stated he had not passed any gas. A KUB was done which showed nonobstructive bowel gas pattern, large stool burden. MiraLAX 17 g per orally was given once. He also complains that he is unable to know when he is voiding. A bladder scan ordered, normal results. cardio consultation done, they have suggested angiography on Saturday. Objective vital signs Vital Sign Date Time Temp Pulse Resp B/P (MAP) Pulse Ox O2 Delivery O2 Flow Rate FiO2 06/04/25 17:06 98.4 78 16 128/77 (94) 97 98.4 06/04/25 08:00 Room Air* 0 21 Total Intake and Output 06/03/25 06/03/25 06/04/25 15:00 23:00 07:00 Intake Total 500 ml 650 ml Output Total 325 ml 400 ml Balance 175 ml 250 ml medications Current Medications Medications Dose Ordered Sig/Philip Route Start Time Stop Time Status Last Admin Dose Admin Acetaminophen/ Hydrocodone Bitart 1 tab Q4HP PRN PO 05/31/25 07:45 06/04/25 13:46 1 TAB Ondansetron HCl 4 mg Q4HP PRN IV 05/31/25 07:45 Docusate Sodium 100 mg BIDPRN PRN PO 05/31/25 07:45 Acetaminophen 650 mg Q6HP PRN PO 05/31/25 07:45 Nitroglycerin 0.4 mg Q5MINP PRN SL 05/31/25 07:45 Morphine Sulfate 2 mg Q30M PRN IV 05/31/25 07:45 Enoxaparin Sodium 70 mg Q12HR SC 05/31/25 10:00 UNV Diagnostic Test (Pha) 1 strip ACHS 05/31/25 11:30 06/04/25 17:29 1 STRIP Insulin Human Regular HS SC 05/31/25 22:00 06/03/25 22:11 4 UNITS Insulin Human Regular AC SC 05/31/25 11:30 06/04/25 17:29 3 UNITS Dextrose 50 ml UD PRN IV 05/31/25 08:15 Enoxaparin Sodium 70 mg BID SC 05/31/25 10:00 06/04/25 08:34 70 MG Pantoprazole Sodium 40 mg DAILY IV 06/01/25 10:00 06/04/25 08:33 40 MG Insulin Glargine 20 units HS SC 06/01/25 22:00 06/03/25 22:12 20 UNITS Ceftriaxone Sodium 50 ml @ 100 mls/hr DAILY@09 IV 06/05/25 09:00 Clindamycin Phosphate 50 ml @ 50 mls/hr Q8HR IV 06/04/25 14:00 06/04/25 13:52 50 MLS/HR Examination Pt is lying on bed General Appearance: Alert, Oriented X3, Cooperative, Not in acute distress HEENT: Atraumatic, Mucous membranes moist/pink Respiratory: Clear to auscultation, Normal air movement, No added sounds Cardiovascular: Regular rate, Normal S1, Normal S2, No murmurs Abdominal: Active bowel sounds, Soft, no distention, tender right upper quadrant tenderness Extremities: No edema, Normal pulses, Xhmbk-[id number] amputation on the left leg; dry gangrene, black skin on the tip of the right 1st hallux, Erythema resent below the dry gangrene and 1st metatarsal joint Skin: No Significant rash, except past surgical scars Neuro: Normal speech, sensorimotor deficits none Psych/Mental Status: Mental status NL, Mood NL Nurse was there as hotbed operator during examination laboratory and microbiology Laboratory Tests 06/04/25 07:53 Test 06/04/25 07:53 Range/Units Serum Glucose 97 74-106 mg/dL Microbiology Date/Time Source Procedure Growth Status 05/30/25 21:41 Blood Blood Culture - Preliminary NO GROWTH AFTER 72 HOURS OF INCUBATION. 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 No definite radiographic evidence of osteomyelitis; Moderate hallux valgus; Minimal plantar and retrocalcaneal enthesopathy; Soft tissues are unremarkable. Atherosclerotic vascular calcifications. -Venous Doppler showed: No right femoropopliteal venous thrombosis. -Right foot CT without contrast shows: 1. Moderate subcutaneous edema in the great toe with prominent locules of gas adjacent to and within the distal phalanx, likely due to necrosis. Necrotizing infection not excluded.b Can not exclude osteomyelitis in the distal phalanx. 2. Wound of the plantar aspect of the calcaneus with adjacent subcutaneous edema, possible cellulitis in the appropriate clinical setting. No evidence for abscess or osteomyelitis in this location on CT. If clinically indicated, MRI could be considered. 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 No definite radiographic evidence of osteomyelitis; Moderate hallux valgus; Minimal plantar and retrocalcaneal enthesopathy; Soft tissues are unremarkable. Atherosclerotic vascular calcifications. -Venous Doppler showed: No right femoropopliteal venous thrombosis. -Right foot CT without contrast shows: 1. Moderate subcutaneous edema in the great toe with prominent locules of gas adjacent to and within the distal phalanx, likely due to necrosis. Necrotizing infection not excluded.b Can not exclude osteomyelitis in the distal phalanx. 2. Wound of the plantar aspect of the calcaneus with adjacent subcutaneous edema, possible cellulitis in the appropriate clinical setting. No evidence for abscess or osteomyelitis in this location on CT. If clinically indicated, MRI could be considered. - ESR 29, CRP 6.72 -patient is foot is warm, he can wiggle his toes, can flex and extend his toes - Wound consult -doppler usg done and "whooshing" sound heard both in the dorsalis pedis and posterior tibial artery -IV vancomycin and IV cefepime started 05/31 - podiatry consult suggests CTA before podiatry intervention. 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 The thrombus extends to the intrahepatic IVC so the is not a good place to place IVC filter. 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 # uncontrolled Diabetes mellitus type 2, HbA1c >14 -UA shows +1 ketones, +4 glucose -Moderate sliding scale insulin -Insulin Lantus 15 units HS # MARY due to VMN -received IV fluids on admission GI prophylaxis: 40 mg IV daily DVT prophylaxis: Lovenox 70 mg b.i.d. D Diet: cardiac diet Goals of care discussed with the patient's son at bedside for more than 27 minutes: Full code status Case discussed with Dr. Mann, patient, patient's son and nurse. Plan discussed with: Patient, Other (rn) My Orders My Orders Orders - UVALDO HARRINGTON Procedure Category Date Status Time Kub Abdomen Single XY 06/04/25 Resulted View 07:42 Bladder Scan ORDERS 06/04/25 Transmitted 07:43 * Cardiology Consult CONS 06/04/25 Transmitted 14:10 Dietary Evaluation Review Comments: Nutrition Recommendation 1) CCHO 60gm diet 2) Ryder 1 pk BID 3) Refer [employer] for diabetes education Expected Outcomes/Goals: Wound to improve Lab values to improve Fu 3-5 days Date of Service: Jun 04, 2025 Billing Provider: ELIAS BOB MD Common Visit Codes: [id number] INP/OBS CARE(HIGH) UVALDO HARRINGTON Jun 04, 2025 18:32 ELIAS BOB MD Jun 06, 2025 17:05
[2025-06-05] VITALS (8 sets, daily range): BP systolic 90–125; BP diastolic 51–73; PULSE 80–86; RESP 17–20; TEMP 97.9–99.3; O2SAT 93–98
[2025-06-05 07:17] LABS: Nucleated Red Blood Cells % 0.0 %
[2025-06-05 07:20] LABS: Hematocrit 39.2 % (41.0-53.0); Hemoglobin 13.6 g/dL (13.5-17.5); Mean Corpuscular Hemoglobin 33.6 pg (28.0-32.0); Mean Corpuscular Volume 96.6 fL (80.0-100.0)
--- NOTE | 2025-06-05 17:33 | DVHPN2 ---
Progress Note Date Seen: Jun 05, 2025 Medical Necessity Reason Pt with a Central, PICC or Fol: No Objective vital signs Vital Sign Date Time Temp Pulse Resp B/P (MAP) Pulse Ox O2 Delivery O2 Flow Rate FiO2 06/05/25 12:00 98.9 82 18 90/51 (64) 93 98.9 06/05/25 08:00 Room Air* 0 21 Total Intake and Output 06/04/25 06/04/25 06/05/25 15:00 23:00 07:00 Intake Total 200 ml 1040 ml 400 ml Output Total 100 ml 525 ml 300 ml Balance 100 ml 515 ml 100 ml medications Current Medications Medications Dose Ordered Sig/Philip Route Start Time Stop Time Status Last Admin Dose Admin Acetaminophen/ Hydrocodone Bitart 1 tab Q4HP PRN PO 05/31/25 07:45 06/05/25 14:10 1 TAB Ondansetron HCl 4 mg Q4HP PRN IV 05/31/25 07:45 Docusate Sodium 100 mg BIDPRN PRN PO 05/31/25 07:45 Acetaminophen 650 mg Q6HP PRN PO 05/31/25 07:45 Nitroglycerin 0.4 mg Q5MINP PRN SL 05/31/25 07:45 Morphine Sulfate 2 mg Q30M PRN IV 05/31/25 07:45 Enoxaparin Sodium 70 mg Q12HR SC 05/31/25 10:00 UNV Diagnostic Test (Pha) 1 strip ACHS 05/31/25 11:30 06/05/25 11:30 1 STRIP Insulin Human Regular HS SC 05/31/25 22:00 06/04/25 22:07 4 UNITS Insulin Human Regular AC SC 05/31/25 11:30 06/05/25 12:12 2 UNITS Dextrose 50 ml UD PRN IV 05/31/25 08:15 Enoxaparin Sodium 70 mg BID SC 05/31/25 10:00 06/05/25 08:50 70 MG Pantoprazole Sodium 40 mg DAILY IV 06/01/25 10:00 06/05/25 08:50 40 MG Insulin Glargine 20 units HS SC 06/01/25 22:00 06/04/25 22:09 20 UNITS Ceftriaxone Sodium 50 ml @ 100 mls/hr DAILY@09 IV 06/05/25 09:00 06/05/25 08:50 100 MLS/HR Clindamycin Phosphate 50 ml @ 50 mls/hr Q8HR IV 06/04/25 14:00 06/05/25 13:57 50 MLS/HR Examination: GENERAL:Abnormal, HEENT:Abnormal, CVS:Abnormal, ABDOMEN:Abnormal laboratory and microbiology Laboratory Tests 06/05/25 06:22 06/04/25 07:53 Test 06/04/25 07:53 Range/Units Serum Glucose 97 74-106 mg/dL Microbiology Date/Time Source Procedure Growth Status 05/30/25 21:41 Blood Blood Culture - Final NO GROWTH AFTER 5 DAYS OF INCUBATION. Complete Problem List/Assessment/Plan Problem List/Assessment/Plan CLI gangrene htn [facility] hospice dc lovenox plan for angiogram saturday asa, statin dw RN Plan discussed with: Patient Dietary Evaluation Review Comments: Nutrition Recommendation 1) CCHO 60gm diet 2) Ryder 1 pk BID 3) Refer [employer] for diabetes education Expected Outcomes/Goals: Wound to improve Lab values to improve Fu 3-5 days Date of Service: Jun 05, 2025 Billing Provider: NIKA LOCKHART MD Common Visit Codes: NOT BILLABLE NIKA LOCKHART MD Jun 05, 2025 17:33
--- NOTE | 2025-06-05 19:03 | DVHPN2 ---
Subjective Patient is here for dry gangrene of the right foot currently scheduled for conventional angiogram on Saturday. Patient's son was updated. Patient was on hospice now currently he is on full code. Changes from previous H/P or p: No Changes Eyes: No Pain, No Vision change, No Conjunctivae inflammation, No Eyelid inflammation, No Other, No Redness ENT: No Ear pain, No Ear discharge, No Nose pain, No Nose discharge, No Nose congestion, No Mouth pain, No Mouth swelling, No Throat pain, No Throat swelling, No Other Cardiovascular: No Chest Pain, No Palpitations, No Orthopnea, No Paroxysmal Noc. Dyspnea, No Edema, No Lt Headedness, No Other Respiratory: No Cough, No Dry, No Shortness of breath, No SOB with excertion, No Wheezing, No Hemoptysis, No Pleuritic Pain, No Sputum, No Other Gastrointestinal: No Nausea, No Vomiting; Abdominal Pain; No Diarrhea, No Constipation, No Melena, No Hematochezia, No Other Genitourinary: No Dysuria, No Frequency, No Incontinence, No Hematuria, No Retention, No Other Musculoskeletal: No other, No neck pain, No shoulder pain, No arm pain, No back pain, No hand pain, No leg pain, No foot pain Skin: No Rash, No Lesions, No Jaundice, No Bruising, No Other Objective Vitals Vital Signs Date Time Temp Pulse Resp B/P (MAP) Pulse Ox O2 Delivery O2 Flow Rate FiO2 06/05/25 16:00 98.4 84 18 124/63 (83) 94 98.4 06/05/25 08:00 Room Air* 0 21 Intake/Output Intake and Output 06/05/25 07:00 Intake Total 1640 ml Output Total 925 ml Balance 715 ml Intake Oral 1440 ml IV Total 200 ml Output Urine Total 925 ml # Voids 3 Exam HEENT pupils are reactive Neck is supple CV is S1-S2 regular rate and rhythm Respiratory bilateral clear GI positive bowel sound Extremity no edema [employer]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 Right foot dry gangrene on the right hallux Medications Current Medications Medications Dose Ordered Sig/Philip Route Start Time Stop Time Status Last Admin Dose Admin Acetaminophen/ Hydrocodone Bitart 1 tab Q4HP PRN PO 05/31/25 07:45 06/05/25 14:10 1 TAB Ondansetron HCl 4 mg Q4HP PRN IV 05/31/25 07:45 Docusate Sodium 100 mg BIDPRN PRN PO 05/31/25 07:45 Acetaminophen 650 mg Q6HP PRN PO 05/31/25 07:45 Nitroglycerin 0.4 mg Q5MINP PRN SL 05/31/25 07:45 Morphine Sulfate 2 mg Q30M PRN IV 05/31/25 07:45 Enoxaparin Sodium 70 mg Q12HR SC 05/31/25 10:00 UNV Diagnostic Test (Pha) 1 strip ACHS 05/31/25 11:30 06/05/25 17:00 1 STRIP Insulin Human Regular HS SC 05/31/25 22:00 06/04/25 22:07 4 UNITS Insulin Human Regular AC SC 05/31/25 11:30 06/05/25 17:47 12 UNITS Dextrose 50 ml UD PRN IV 05/31/25 08:15 Enoxaparin Sodium 70 mg BID SC 05/31/25 10:00 06/05/25 08:50 70 MG Pantoprazole Sodium 40 mg DAILY IV 06/01/25 10:00 06/05/25 08:50 40 MG Insulin Glargine 20 units HS SC 06/01/25 22:00 06/04/25 22:09 20 UNITS Ceftriaxone Sodium 50 ml @ 100 mls/hr DAILY@09 IV 06/05/25 09:00 06/05/25 08:50 100 MLS/HR Clindamycin Phosphate 50 ml @ 50 mls/hr Q8HR IV 06/04/25 14:00 06/05/25 13:57 50 MLS/HR Laboratory Results Laboratory Tests 06/04/25 07:53 06/05/25 06:22 Urinalysis Test 05/31/25 00:14 Urine Color Colorless (Yellow) Urine Clarity Clear (Clear) Urine pH 6.0 (5.0-9.0) Urine Specific [place] 1.026 (1.001-1.035) Urine Protein Negative (Negative) Urine Ketones 1+ (Negative) H Urine Blood Negative /uL (Negative) Urine Nitrite Negative (Negative) Urine Bilirubin Negative (Negative) Urine Urobilinogen Normal mg/dL (Negative) Urine Leukocyte Esterase Negative /uL (Negative) Urine RBC 2 /hpf (0 - 3) Urine Microscopic WBC 1 /HPF (0-3) Urine Squamous Epithelial Cells None seen /hpf (<5) Urine Bacteria None seen /hpf (None Seen) Urine Creatinine 15.37 mg/dL (30.0-125.0) L Urine Protein/Creatinine Ratio 0.39 Urine Glucose 4+ mg/dL (Normal) H Urine Total Protein < 6.0 mg/dL (1-14) Microbiology Microbiology Date/Time Source Procedure Growth Status 05/30/25 21:41 Blood Blood Culture - Final NO GROWTH AFTER 5 DAYS OF INCUBATION. Complete Assessment/Plan Assessment/Plan 70-year-old male with a known history of diabetes type 2, hypertension, dyslipidemia, was on hospice presented to the hospital with a chronic right foot worsening ulcer found to have 1. Dry gangrene of the right foot great hallux 2. Peripheral vascular disease 3. Diabetes mellitus type 2 4. Dyslipidemia 5. Hypertension -IV antibiotics, conventional angiogram on Saturday. Follow up Podiatry Services recommendations. Plan discussed with: Patient, Evangelista Date of Service: Jun 05, 2025 Billing Provider: GEORGIE DAVISON MD Common Visit Codes: [id number] INP/OBS CARE(MOD) GEOGRIE DAVISON MD Jun 05, 2025 19:03
[2025-06-05] MEDS: ACETAMINOPHEN 325 MG TAB PO PRN (19:50)
[2025-06-06] VITALS (10 sets, daily range): BP systolic 102–142; BP diastolic 55–83; PULSE 70–101; RESP 17–22; TEMP 97.7–98.6; O2SAT 88–98
--- NOTE | 2025-06-06 18:24 | DVHPN2 ---
Subjective Patient is here for dry gangrene of the right foot currently scheduled for conventional angiogram on Saturday. Patient's son was updated. Patient was on hospice now currently he is on full code. Changes from previous H/P or p: No Changes Eyes: No Pain, No Vision change, No Conjunctivae inflammation, No Eyelid inflammation, No Other, No Redness ENT: No Ear pain, No Ear discharge, No Nose pain, No Nose discharge, No Nose congestion, No Mouth pain, No Mouth swelling, No Throat pain, No Throat swelling, No Other Cardiovascular: No Chest Pain, No Palpitations, No Orthopnea, No Paroxysmal Noc. Dyspnea, No Edema, No Lt Headedness, No Other Respiratory: No Cough, No Dry, No Shortness of breath, No SOB with excertion, No Wheezing, No Hemoptysis, No Pleuritic Pain, No Sputum, No Other Gastrointestinal: No Nausea, No Vomiting; Abdominal Pain; No Diarrhea, No Constipation, No Melena, No Hematochezia, No Other Genitourinary: No Dysuria, No Frequency, No Incontinence, No Hematuria, No Retention, No Other Musculoskeletal: No other, No neck pain, No shoulder pain, No arm pain, No back pain, No hand pain, No leg pain, No foot pain Skin: No Rash, No Lesions, No Jaundice, No Bruising, No Other Objective Vitals Vital Signs Date Time Temp Pulse Resp B/P (MAP) Pulse Ox O2 Delivery O2 Flow Rate FiO2 06/06/25 17:00 97.9 70 20 110/76 (87) 94 97.9 06/06/25 07:50 Room Air* 0 21 Intake/Output Intake and Output 06/06/25 07:00 Intake Total 1386 ml Balance 1386 ml Intake Oral 1286 ml IV Total 100 ml # Voids 2 # Bowel Movements 2 Exam HEENT pupils are reactive Neck is supple CV is S1-S2 regular rate and rhythm Respiratory bilateral clear GI positive bowel sound Extremity no edema [employer] no motor deficit Right foot dry gangrene on the right hallux Medications Current Medications Medications Dose Ordered Sig/Philip Route Start Time Stop Time Status Last Admin Dose Admin Acetaminophen/ Hydrocodone Bitart 1 tab Q4HP PRN PO 05/31/25 07:45 06/06/25 16:25 1 TAB Ondansetron HCl 4 mg Q4HP PRN IV 05/31/25 07:45 Docusate Sodium 100 mg BIDPRN PRN PO 05/31/25 07:45 Acetaminophen 650 mg Q6HP PRN PO 05/31/25 07:45 06/05/25 19:50 650 MG Nitroglycerin 0.4 mg Q5MINP PRN SL 05/31/25 07:45 Morphine Sulfate 2 mg Q30M PRN IV 05/31/25 07:45 Enoxaparin Sodium 70 mg Q12HR SC 05/31/25 10:00 UNV Diagnostic Test (Pha) 1 strip ACHS 05/31/25 11:30 06/06/25 17:21 1 STRIP Insulin Human Regular HS SC 05/31/25 22:00 06/05/25 21:23 4 UNITS Insulin Human Regular AC SC 05/31/25 11:30 06/06/25 17:22 3 UNITS Dextrose 50 ml UD PRN IV 05/31/25 08:15 Pantoprazole Sodium 40 mg DAILY IV 06/01/25 10:00 06/06/25 08:58 40 MG Insulin Glargine 20 units HS PA 06/01/25 22:00 06/05/25 21:23 20 UNITS Ceftriaxone Sodium 50 ml @ 100 mls/hr DAILY@09 IV 06/05/25 09:00 06/06/25 08:58 100 MLS/HR Clindamycin Phosphate 50 ml @ 50 mls/hr Q8HR IV 06/04/25 14:00 06/06/25 13:42 50 MLS/HR Laboratory Results Laboratory Tests 06/04/25 07:53 06/05/25 06:22 Urinalysis Test 05/31/25 00:14 Urine Color Colorless (Yellow) Urine Clarity Clear (Clear) Urine pH 6.0 (5.0-9.0) Urine Specific [place] 1.026 (1.001-1.035) Urine Protein Negative (Negative) Urine Ketones 1+ (Negative) H Urine Blood Negative /uL (Negative) Urine Nitrite Negative (Negative) Urine Bilirubin Negative (Negative) Urine Urobilinogen Normal mg/dL (Negative) Urine Leukocyte Esterase Negative /uL (Negative) Urine RBC 2 /hpf (0 - 3) Urine Microscopic WBC 1 /HPF (0-3) Urine Squamous Epithelial Cells None seen /hpf (<5) Urine Bacteria None seen /hpf (None Seen) Urine Creatinine 15.37 mg/dL (30.0-125.0) L Urine Protein/Creatinine Ratio 0.39 Urine Glucose 4+ mg/dL (Normal) H Urine Total Protein < 6.0 mg/dL (1-14) Microbiology Microbiology Date/Time Source Procedure Growth Status 05/30/25 21:41 Blood Blood Culture - Final NO GROWTH AFTER 5 DAYS OF INCUBATION. Complete Assessment/Plan Assessment/Plan 70-year-old male with a known history of diabetes type 2, hypertension, dyslipidemia, was on hospice presented to the hospital with a chronic right foot worsening ulcer found to have 1. Dry gangrene of the right foot great hallux 2. Peripheral vascular disease 3. Diabetes mellitus type 2 4. Dyslipidemia 5. Hypertension -IV antibiotics, conventional angiogram on Saturday. Follow up Podiatry Services recommendations. Plan discussed with: Patient Date of Service: Jun 06, 2025 Billing Provider: GEORGIE DAVISON MD Common Visit Codes: [id number] INP/OBS CARE(MOD) GEORGIE DAVISON MD Jun 06, 2025 18:24
[2025-06-07] VITALS (12 sets, daily range): BP systolic 113–136; BP diastolic 67–95; PULSE 72–88; RESP 11–20; TEMP 97.6–99.3; O2SAT 93–98
[2025-06-07] MEDS: IODIXANOL 320MG/ML 100ML BTL IV ONE ×2 (07:37→07:41)
[2025-06-07] MEDS: MIDAZOLAM HCL 2MG/2ML 2ml VIAL (1mg/ml) ONE (08:18)
[2025-06-07] MEDS: SODIUM CHL 0.9% 0 ML ONE (08:18)
[2025-06-07] MEDS: ANGIOMAX 250 MG VIAL IV ONE (08:18)
[2025-06-07] MEDS: fentaNYL CITRATE 100 MCG/2 ML VL ONE (08:18)
[2025-06-07] MEDS: LIDOCAINE 2%HCL (LOCAL ANESTH.) INJ 20ML MDV ONE (08:34)
--- NOTE | 2025-06-07 09:12 | DVHPN2 ---
Progress Note Date Seen: Jun 07, 2025 Medical Necessity Reason Pt with a Central, PICC or Fol: No Subjective Patient reports: Feels better Objective vital signs Vital Sign Date Time Temp Pulse Resp B/P (MAP) Pulse Ox O2 Delivery O2 Flow Rate FiO2 06/07/25 05:00 98.8 87 17 120/95 (103) 96 98.8 06/06/25 20:00 Room Air* 0 21 Total Intake and Output 06/06/25 06/06/25 06/07/25 15:00 23:00 07:00 Intake Total 684 ml 702 ml 400 ml Output Total 625 ml Balance 684 ml 77 ml 400 ml medications Current Medications Medications Dose Ordered Sig/Philip Route Start Time Stop Time Status Last Admin Dose Admin Acetaminophen/ Hydrocodone Bitart 1 tab Q4HP PRN PO 05/31/25 07:45 06/07/25 04:17 1 TAB Ondansetron HCl 4 mg Q4HP PRN IV 05/31/25 07:45 Docusate Sodium 100 mg BIDPRN PRN PO 05/31/25 07:45 Acetaminophen 650 mg Q6HP PRN PO 05/31/25 07:45 06/05/25 19:50 650 MG Nitroglycerin 0.4 mg Q5MINP PRN SL 05/31/25 07:45 Morphine Sulfate 2 mg Q30M PRN IV 05/31/25 07:45 Enoxaparin Sodium 70 mg Q12HR SC 05/31/25 10:00 UNV Diagnostic Test (Pha) 1 strip ACHS 05/31/25 11:30 06/07/25 06:16 1 STRIP Insulin Human Regular HS SC 05/31/25 22:00 06/06/25 22:36 6 UNITS Insulin Human Regular AC SC 05/31/25 11:30 06/07/25 06:19 3 UNITS Dextrose 50 ml UD PRN IV 05/31/25 08:15 Pantoprazole Sodium 40 mg DAILY IV 06/01/25 10:00 06/06/25 08:58 40 MG Insulin Glargine 20 units HS SC 06/01/25 22:00 06/06/25 22:38 20 UNITS Ceftriaxone Sodium 50 ml @ 100 mls/hr DAILY@09 IV 06/05/25 09:00 06/06/25 08:58 100 MLS/HR Clindamycin Phosphate 50 ml @ 50 mls/hr Q8HR IV 06/04/25 14:00 06/07/25 06:06 50 MLS/HR Examination: GENERAL:Abnormal, HEENT:Abnormal, LUNGS:Abnormal, CVS:Abnormal, ABDOMEN:Abnormal laboratory and microbiology Laboratory Tests 06/05/25 06:22 06/04/25 07:53 Test 06/04/25 07:53 Range/Units Serum Glucose 97 74-106 mg/dL Microbiology Date/Time Source Procedure Growth Status 05/30/25 21:41 Blood Blood Culture - Final NO GROWTH AFTER 5 DAYS OF INCUBATION. Complete Problem List/Assessment/Plan Problem List/Assessment/Plan CLI gangrene htn [facility] hospice dc lovenox plan for angiogram saturday asa, statin dw RN sp angio pt has 2 vessel runoff likely needs amputation/ surgery treatment to great toe he has good blood supply to his lateral foot with AT and peroneal patent PT is [employer] and not amenable to intervention asa, statin, Plan discussed with: Patient, Other (rn) Dietary Evaluation Review Comments: Nutrition Recommendation 1) CCHO 60gm diet 2) Ryder 1 pk BID 3) Refer [employer] for diabetes education Expected Outcomes/Goals: Wound to improve Lab values to improve Fu 3-5 days Date of Service: Jun 07, 2025 Billing Provider: NIKA LOCKHART MD Common Visit Codes: NOT BILLABLE NIKA LOCKHART MD Jun 07, 2025 09:12
--- NOTE | 2025-06-07 09:55 | DVHOP ---
DATE OF SURGERY: 06/07/2025 PREOPERATIVE DIAGNOSIS: CLI. POSTOPERATIVE DIAGNOSIS: CLI. PROCEDURES PERFORMED: * Ultrasound-guided vascular access. * Conscious sedation administration and supervision less than 15 minutes as well as 15 to 30 minutes fluoroscopy use and interpretation. * Bilateral lower extremity angiogram. * First, second, third order catheterization. * Lower extremity catheterization. * Iliofemoral angiogram. * Hemostasis closure device. DESCRIPTION OF PROCEDURE: The patient signed informed consent, understanding the risks, benefits, and alternatives of procedure. He wished to proceed. 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 He was prepped in a sterile fashion. Sedation was used per cardiac cath protocol. I administered 8 mL of 2% lidocaine to the left groin with antegrade flow wall puncture. Using ultrasound-guided access, I cannulated his left common femoral artery and placed a 6-Macedonian sheath. Ipsilateral angiogram was performed showing an appropriate arteriotomy site. Then, over a 5-Macedonian RIM catheter, I crossed contralaterally and I parked my catheter into the mid SFA on the right lower extremity. At this point, angiogram was performed. The right common iliac artery was patent. Right external iliac artery was patent. Right common femoral artery was patent. Right proximal, mid and distal SFA are patent. Right popliteal artery is heavily calcific vessel. There is a 40-50% mid to distal popliteal stenosis. Right anterior tibial artery is widely patent in the proximal, mid and distal portion. The distal AT has moderate stenosis with runoff into the ankle. The dorsalis pedis is likely occluded with collateral flow from the peroneal. Tibioperoneal trunk is patent with about a 30% stenosis. Peroneal artery, this is the dominant artery for the patient. It is widely patent in the proximal, mid and distal portion. There is about nonobstructive 30% stenosis within it. The very distal peroneal does feed collaterals into a posterior tibial artery in the ankle that reconstitutes. The posterior tibial artery completely occluded in the proximal, mid and distal portion in the ankle. It does reconstitute for about 1-2 cm into the bottom of the foot. At this point, a guidewire was removed and a 6-Macedonian AngioSeal was used for closure. CONCLUSION: * Essentially 2-vessel runoff to the ankle with the anterior tibial and peroneal artery. 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 * Dorsalis pedis is likely subtotally occluded in the foot. Sebastian Michaels MD CM/KELVIN/MYRTLE TID: [id number] RECEIPT: [id number]
[2025-06-07] MEDS: DOXYCYCLINE 100MG/100ML 100 ML IV SCH (14:04)
--- NOTE | 2025-06-07 17:25 | DVHPN2 ---
Subjective Patient doing well, pain at gangrenous toe, seen at bedside today Reviewed: Care Plan Changes from previous H/P or p: No Changes General: Per HPI Eyes: No Pain, No Vision change, No Conjunctivae inflammation, No Eyelid inflammation, No Other, No Redness ENT: No Ear pain, No Ear discharge, No Nose pain, No Nose discharge, No Nose congestion, No Mouth pain, No Mouth swelling, No Throat pain, No Throat swelling, No Other Cardiovascular: No Chest Pain, No Palpitations, No Orthopnea, No Paroxysmal Noc. Dyspnea, No Edema, No Lt Headedness, No Other Respiratory: No Cough, No Dry, No Shortness of breath, No SOB with excertion, No Wheezing, No Hemoptysis, No Pleuritic Pain, No Sputum, No Other Gastrointestinal: No Nausea, No Vomiting; Abdominal Pain; No Diarrhea, No Constipation, No Melena, No Hematochezia, No Other Genitourinary: No Dysuria, No Frequency, No Incontinence, No Hematuria, No Retention, No Other Musculoskeletal: No other, No neck pain, No shoulder pain, No arm pain, No back pain, No hand pain, No leg pain, No foot pain Skin: No Rash, No Lesions, No Jaundice, No Bruising, No Other Objective Vitals Vital Signs Date Time Temp Pulse Resp B/P (MAP) Pulse Ox O2 Delivery O2 Flow Rate FiO2 06/07/25 10:18 75 13 133/77 (95) 96 06/07/25 09:19 97.6 97.6 06/07/25 08:00 Room Air* 0 21 Intake/Output Intake and Output 06/07/25 07:00 Intake Total 1786 ml Output Total 625 ml Balance 1161 ml Intake Oral 1686 ml IV Total 100 ml Output Urine Total 625 ml # Voids 1 Exam GEN: Healthy appearing, well-developed, NAD. HEENT: NC/AT; MMM. CV: RRR, no m/r/g. LUNGS: CTAB, no w/r/c. ABD: Soft, NT/ND, NBS, no masses or organomegaly. EXT: skin Warm, well perfused. no rashes. No clubbing, cyanosis, or edema. R ight big toe gangrenous NEURO: Ambulating with no limitations. No focal deficits. Medications Current Medications Medications Dose Ordered Sig/Philip Route Start Time Stop Time Status Last Admin Dose Admin Acetaminophen/ Hydrocodone Bitart 1 tab Q4HP PRN PO 05/31/25 07:45 06/07/25 11:57 1 TAB Ondansetron HCl 4 mg Q4HP PRN IV 05/31/25 07:45 Docusate Sodium 100 mg BIDPRN PRN PO 05/31/25 07:45 Acetaminophen 650 mg Q6HP PRN PO 05/31/25 07:45 06/05/25 19:50 650 MG Nitroglycerin 0.4 mg Q5MINP PRN SL 05/31/25 07:45 Morphine Sulfate 2 mg Q30M PRN IV 05/31/25 07:45 Enoxaparin Sodium 70 mg Q12HR SC 05/31/25 10:00 UNV Diagnostic Test (Pha) 1 strip ACHS 05/31/25 11:30 06/07/25 11:54 1 STRIP Insulin Human Regular HS SC 05/31/25 22:00 06/06/25 22:36 6 UNITS Insulin Human Regular AC SC 05/31/25 11:30 06/07/25 11:55 2 UNITS Dextrose 50 ml UD PRN IV 05/31/25 08:15 Pantoprazole Sodium 40 mg DAILY IV 06/01/25 10:00 06/07/25 11:33 40 MG Insulin Glargine 20 units HS SC 06/01/25 22:00 06/06/25 22:38 20 UNITS Ceftriaxone Sodium 50 ml @ 100 mls/hr DAILY@09 IV 06/05/25 09:00 06/07/25 11:33 100 MLS/HR Doxycycline Hyclate 100 ml @ 50 mls/hr Q12H IV 06/07/25 13:45 06/07/25 14:04 50 MLS/HR Laboratory Results Laboratory Tests 06/04/25 07:53 06/05/25 06:22 Urinalysis Test 05/31/25 00:14 Urine Color Colorless (Yellow) Urine Clarity Clear (Clear) Urine pH 6.0 (5.0-9.0) Urine Specific [place] 1.026 (1.001-1.035) Urine Protein Negative (Negative) Urine Ketones 1+ (Negative) H Urine Blood Negative /uL (Negative) Urine Nitrite Negative (Negative) Urine Bilirubin Negative (Negative) Urine Urobilinogen Normal mg/dL (Negative) Urine Leukocyte Esterase Negative /uL (Negative) Urine RBC 2 /hpf (0 - 3) Urine Microscopic WBC 1 /HPF (0-3) Urine Squamous Epithelial Cells None seen /hpf (<5) Urine Bacteria None seen /hpf (None Seen) Urine Creatinine 15.37 mg/dL (30.0-125.0) L Urine Protein/Creatinine Ratio 0.39 Urine Glucose 4+ mg/dL (Normal) H Urine Total Protein < 6.0 mg/dL (1-14) Microbiology Microbiology Date/Time Source Procedure Growth Status 05/30/25 21:41 Blood Blood Culture - Final NO GROWTH AFTER 5 DAYS OF INCUBATION. Complete Labs and/or images reviewed: Labs reviewed by me, Image(s) reviewed by me Assessment/Plan Assessment/Plan Review of Systems 70-year-old with a past medical history of diabetes and hypertension came to the emergency with complaints of right upper quadrant pain and black discoloration of the right 1st hallux. patient reported that he had right upper quadrant pain for a few days now but yesterday it increased, is a stabbing type, radiates to the epigastric region, 10/ 10 in intensity, not associated with any aggravating or relieving factors. It was not associated with any nausea, vomiting, diarrhea, chills, fever. Patient also reports that his right tip of the toe has become black since the last 2 months and he sometimes feels shooting pain. He has been going [facility] to get it [facility]. Patient has a [id number] amputation of the left leg and is in home hospice. 06/01/2025: Patient was seen by me at the bedside. Patient has no new active complaints. Podiatry consult suggested CT. CT with runoff has been ordered, results pending. 06/02/2025: Patient was seen by me at the bedside. Patient complained of pain in his foot today and was given [place]. CTA with runoff shows the popliteal artery and below knee arteries are adequately assess due to suboptimal contrast bolus and extensive vascular calcification. We had conducted Doppler day before yesterday which showed a whooshing sound in both dorsalis pedis and posterior tibial artery. Informed Dr. Guadarrama regarding all results. Consult with vascular surgery, pending regarding CTA and evaluation for angiogram. 06/03/2025:Patient was seen by me at the bedside. Patient has no new active complaints. He says that his feet hurts him a little bit. Pending vascular surgery consult 06/04:Patient was seen by me at the bedside. Today the patient reported that he has not passed stool for 4 days. He also stated he had not passed any gas. A KUB was done which showed nonobstructive bowel gas pattern, large stool burden. MiraLAX 17 g per orally was given once. He also complains that he is unable to know when he is voiding. A bladder scan ordered, normal results. cardio consultation done, they have suggested angiography on Saturday. 06/07: Angiogram shows good flow, contacted Podiatry, NPO midnight,. 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 # uncontrolled Diabetes mellitus type 2, HbA1c >14 # MARY due to VMN Plan: IV antibiotics continue Podiatry consult Cardiology consulted- agree with continuing with amputation/podiatry treatment Prn pain control Continuing diet, NPO for any procedures midnight prior Tele Full code Plan discussed with: Patient My Orders Orders - ELIAS BOB MD Procedure Category Date Status Time Npo (Nothing By DIET 06/08/25 Transmitted Mouth) Diet Breakfast Doxycycline PHA 06/07/25 In Process 100mg/100ml 13:45 Date of Service: Jun 07, 2025 Billing Provider: ELIAS BOB MD Common Visit Codes: [id number] INP/OBS CARE(HIGH) ELIAS BOB MD Jun 07, 2025 17:25
[2025-06-08] VITALS (10 sets, daily range): BP systolic 123–127; BP diastolic 71–96; PULSE 77–108; RESP 13–18; TEMP 97.8–98.7; O2SAT 94–98
--- NOTE | 2025-06-08 11:52 | DVHPN2 ---
Subjective Patient doing well, pain at gangrenous toe, seen at bedside today Reviewed: Care Plan Changes from previous H/P or p: No Changes General: Per HPI Eyes: No Pain, No Vision change, No Conjunctivae inflammation, No Eyelid inflammation, No Other, No Redness ENT: No Ear pain, No Ear discharge, No Nose pain, No Nose discharge, No Nose congestion, No Mouth pain, No Mouth swelling, No Throat pain, No Throat swelling, No Other Cardiovascular: No Chest Pain, No Palpitations, No Orthopnea, No Paroxysmal Noc. Dyspnea, No Edema, No Lt Headedness, No Other Respiratory: No Cough, No Dry, No Shortness of breath, No SOB with excertion, No Wheezing, No Hemoptysis, No Pleuritic Pain, No Sputum, No Other Gastrointestinal: No Nausea, No Vomiting; Abdominal Pain; No Diarrhea, No Constipation, No Melena, No Hematochezia, No Other Genitourinary: No Dysuria, No Frequency, No Incontinence, No Hematuria, No Retention, No Other Musculoskeletal: No other, No neck pain, No shoulder pain, No arm pain, No back pain, No hand pain, No leg pain, No foot pain Skin: No Rash, No Lesions, No Jaundice, No Bruising, No Other Objective Vitals Vital Signs Date Time Temp Pulse Resp B/P (MAP) Pulse Ox O2 Delivery O2 Flow Rate FiO2 06/08/25 09:00 98.7 85 16 123/74 (90) 96 98.7 06/08/25 08:00 Room Air* 0 21 Intake/Output Intake and Output 06/08/25 07:00 Intake Total 2153 ml Output Total 300 ml Balance 1853 ml Intake Oral 1903 ml IV Total 250 ml Output Urine Total 300 ml Stool Total 0 ml # Voids 2 Exam GEN: Healthy appearing, well-developed, NAD. HEENT: NC/AT; MMM. CV: RRR, no m/r/g. LUNGS: CTAB, no w/r/c. ABD: Soft, NT/ND, NBS, no masses or organomegaly. EXT: skin Warm, well perfused. no rashes. No clubbing, cyanosis, or edema. R ight big toe gangrenous NEURO: Ambulating with no limitations. No focal deficits. Medications Current Medications Medications Dose Ordered Sig/Philip Route Start Time Stop Time Status Last Admin Dose Admin Acetaminophen/ Hydrocodone Bitart 1 tab Q4HP PRN PO 05/31/25 07:45 06/08/25 01:55 1 TAB Ondansetron HCl 4 mg Q4HP PRN IV 05/31/25 07:45 Docusate Sodium 100 mg BIDPRN PRN PO 05/31/25 07:45 Acetaminophen 650 mg Q6HP PRN PO 05/31/25 07:45 06/05/25 19:50 650 MG Nitroglycerin 0.4 mg Q5MINP PRN SL 05/31/25 07:45 Morphine Sulfate 2 mg Q30M PRN IV 05/31/25 07:45 Enoxaparin Sodium 70 mg Q12HR SC 05/31/25 10:00 UNV Diagnostic Test (Pha) 1 strip ACHS 05/31/25 11:30 06/08/25 06:28 1 STRIP Insulin Human Regular HS SC 05/31/25 22:00 06/07/25 22:18 3 UNITS Insulin Human Regular AC SC 05/31/25 11:30 06/07/25 17:39 9 UNITS Dextrose 50 ml UD PRN IV 05/31/25 08:15 Pantoprazole Sodium 40 mg DAILY IV 06/01/25 10:00 06/08/25 09:49 40 MG Insulin Glargine 20 units HS SC 06/01/25 22:00 06/07/25 22:17 20 UNITS Ceftriaxone Sodium 50 ml @ 100 mls/hr DAILY@09 IV 06/05/25 09:00 06/08/25 09:48 100 MLS/HR Doxycycline Hyclate 100 ml @ 50 mls/hr Q12H IV 06/07/25 13:45 06/08/25 01:56 50 MLS/HR Metoclopramide HCl 10 mg ONCE PRN IV 06/08/25 12:00 06/08/25 12:01 UNV Hydromorphone HCl 0.5 mg Q10M PRN IV 06/08/25 12:00 06/08/25 12:41 UNV Morphine Sulfate 2 mg Q4H PRN IV 06/08/25 12:00 06/08/25 16:01 UNV Hydromorphone HCl 0.25 mg Q10M PRN IV 06/08/25 12:00 06/08/25 12:31 UNV Morphine Sulfate 1 mg Q30M PRN IV 06/08/25 12:00 06/08/25 14:01 UNV Laboratory Results Laboratory Tests 06/04/25 07:53 06/05/25 06:22 Urinalysis Test 05/31/25 00:14 Urine Color Colorless (Yellow) Urine Clarity Clear (Clear) Urine pH 6.0 (5.0-9.0) Urine Specific [place] 1.026 (1.001-1.035) Urine Protein Negative (Negative) Urine Ketones 1+ (Negative) H Urine Blood Negative /uL (Negative) Urine Nitrite Negative (Negative) Urine Bilirubin Negative (Negative) Urine Urobilinogen Normal mg/dL (Negative) Urine Leukocyte Esterase Negative /uL (Negative) Urine RBC 2 /hpf (0 - 3) Urine Microscopic WBC 1 /HPF (0-3) Urine Squamous Epithelial Cells None seen /hpf (<5) Urine Bacteria None seen /hpf (None Seen) Urine Creatinine 15.37 mg/dL (30.0-125.0) L Urine Protein/Creatinine Ratio 0.39 Urine Glucose 4+ mg/dL (Normal) H Urine Total Protein < 6.0 mg/dL (1-14) Microbiology Microbiology Date/Time Source Procedure Growth Status 05/30/25 21:41 Blood Blood Culture - Final NO GROWTH AFTER 5 DAYS OF INCUBATION. Complete Labs and/or images reviewed: Labs reviewed by me, Image(s) reviewed by me Assessment/Plan Assessment/Plan Review of Systems 70-year-old with a past medical history of diabetes and hypertension came to the emergency with complaints of right upper quadrant pain and black discoloration of the right 1st hallux. patient reported that he had right upper quadrant pain for a few days now but yesterday it increased, is a stabbing type, radiates to the epigastric region, 10/ 10 in intensity, not associated with any aggravating or relieving factors. It was not associated with any nausea, vomiting, diarrhea, chills, fever. Patient also reports that his right tip of the toe has become black since the last 2 months and he sometimes feels shooting pain. He has been going to [facility] to get it cleaned. Patient has a [id number] amputation of the left leg and is in home hospice. 06/01/2025: Patient was seen by me at the bedside. Patient has no new active complaints. Podiatry consult suggested CT. CT with runoff has been ordered, results pending. 06/02/2025: Patient was seen by me at the bedside. Patient complained of pain in his foot today and was given [place]. CTA with runoff shows the popliteal artery and below knee arteries are adequately assess due to suboptimal contrast bolus and extensive vascular calcification. We had conducted Doppler day before yesterday which showed a whooshing sound in both dorsalis pedis and posterior tibial artery. Informed Dr. Guadarrama regarding all results. Consult with vascular surgery, pending regarding CTA and evaluation for angiogram. 06/03/2025:Patient was seen by me at the bedside. Patient has no new active complaints. He says that his feet hurts him a little bit. Pending vascular surgery consult 06/04:Patient was seen by me at the bedside. Today the patient reported that he has not passed stool for 4 days. He also stated he had not passed any gas. A KUB was done which showed nonobstructive bowel gas pattern, large stool burden. MiraLAX 17 g per orally was given once. He also complains that he is unable to know when he is voiding. A bladder scan ordered, normal results. cardio consultation done, they have suggested angiography on Saturday. 06/07: Angiogram shows good flow, contacted Podiatry, NPO midnight,. Continue IV antibiotics 06/08: Patient going for OR today for intervention with Podiatry. Patient was comfortable in bed with complaining pain of 10/10. 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 # uncontrolled Diabetes mellitus type 2, HbA1c >14 # MARY due to VMN Plan: IV antibiotics continue Podiatry consult Cardiology consulted- agree with continuing with amputation/podiatry treatment Prn pain control Continuing diet, NPO for any procedures midnight prior Tele Full code Plan discussed with: Patient My Orders Orders - ELIAS BOB MD Procedure Category Date Status Time Npo (Nothing By DIET 06/08/25 Transmitted Mouth) Diet Breakfast Doxycycline PHA 06/07/25 In Process 100mg/100ml 13:45 Comprehensive LAB 06/08/25 Logged Metabolic Panel 10:03 Complete Blood Count LAB 06/08/25 Logged 10:03 PTPTT LAB 06/08/25 Logged 10:03 Date of Service: Jun 08, 2025 Billing Provider: ELIAS BOB MD Common Visit Codes: [id number] INP/OBS CARE(HIGH) ELIAS BOB MD Jun 08, 2025 11:52
--- NOTE | 2025-06-08 11:58 | DVHPN2 ---
Abdias Law is a 70-year-old male with past medical history of diabetes, who came to the hospital with complaints of abdominal pain. Patient states he has had RUQ abdominal pain intermittent for about 1-2 months. He also has a gangrene right great toe and a wound to his right heal that he says causes him pain. He has had the wound for a couple months as well and was receiving wound care. Reviewed: Care Plan Changes from previous H/P or p: No Changes General: Per HPI Eyes: No Pain, No Vision change, No Conjunctivae inflammation, No Eyelid inflammation, No Other, No Redness ENT: No Ear pain, No Ear discharge, No Nose pain, No Nose discharge, No Nose congestion, No Mouth pain, No Mouth swelling, No Throat pain, No Throat swelling, No Other Cardiovascular: No Chest Pain, No Palpitations, No Orthopnea, No Paroxysmal Noc. Dyspnea, No Edema, No Lt Headedness, No Other Respiratory: No Cough, No Dry, No Shortness of breath, No SOB with excertion, No Wheezing, No Hemoptysis, No Pleuritic Pain, No Sputum, No Other Gastrointestinal: No Nausea, No Vomiting; Abdominal Pain; No Diarrhea, No Constipation, No Melena, No Hematochezia, No Other Genitourinary: No Dysuria, No Frequency, No Incontinence, No Hematuria, No Retention, No Other Musculoskeletal: No other, No neck pain, No shoulder pain, No arm pain, No back pain, No hand pain, No leg pain, No foot pain Skin: No Rash, No Lesions, No Jaundice, No Bruising, No Other Objective Vitals Vital Signs Date Time Temp Pulse Resp B/P (MAP) Pulse Ox O2 Delivery O2 Flow Rate FiO2 06/08/25 09:00 98.7 85 16 123/74 (90) 96 98.7 06/08/25 08:00 Room Air* 0 21 Intake/Output Intake and Output 06/08/25 07:00 Intake Total 2153 ml Output Total 300 ml Balance 1853 ml Intake Oral 1903 ml IV Total 250 ml Output Urine Total 300 ml Stool Total 0 ml # Voids 2 Exam Dermatological: Skin is dry with mild erythema and some maceration around the wound site No gross deformities noted Mild non-pitting edema present bilaterally Dry gangrene of the right hallux Vascular: Dorsalis pedis and posterior tibial pulses are 1+ bilaterally Capillary refill is under 2 seconds Skin temperature is warm bilaterally Neurologic: Protective sensation is absent on the plantar forefoot bilaterally Monofilament testing reveals decreased sensation in multiple plantar sites Musculoskeletal: Range of motion at the ankle and MTP joints is within normal limits. Strength is 5/5 in all tested muscle groups. Gait is antalgic due to offloading of the affected limb. Medications Current Medications Medications Dose Ordered Sig/Philip Route Start Time Stop Time Status Last Admin Dose Admin Acetaminophen/ Hydrocodone Bitart 1 tab Q4HP PRN PO 05/31/25 07:45 06/08/25 01:55 1 TAB Ondansetron HCl 4 mg Q4HP PRN IV 05/31/25 07:45 Docusate Sodium 100 mg BIDPRN PRN PO 05/31/25 07:45 Acetaminophen 650 mg Q6HP PRN PO 05/31/25 07:45 06/05/25 19:50 650 MG Nitroglycerin 0.4 mg Q5MINP PRN SL 05/31/25 07:45 Morphine Sulfate 2 mg Q30M PRN IV 05/31/25 07:45 Enoxaparin Sodium 70 mg Q12HR SC 05/31/25 10:00 UNV Diagnostic Test (Pha) 1 strip ACHS 05/31/25 11:30 06/08/25 11:54 1 STRIP Insulin Human Regular HS SC 05/31/25 22:00 06/07/25 22:18 3 UNITS Insulin Human Regular AC SC 05/31/25 11:30 06/07/25 17:39 9 UNITS Dextrose 50 ml UD PRN IV 05/31/25 08:15 Pantoprazole Sodium 40 mg DAILY IV 06/01/25 10:00 06/08/25 09:49 40 MG Insulin Glargine 20 units HS SC 06/01/25 22:00 06/07/25 22:17 20 UNITS Ceftriaxone Sodium 50 ml @ 100 mls/hr DAILY@09 IV 06/05/25 09:00 06/08/25 09:48 100 MLS/HR Doxycycline Hyclate 100 ml @ 50 mls/hr Q12H IV 06/07/25 13:45 06/08/25 01:56 50 MLS/HR Metoclopramide HCl 10 mg ONCE PRN IV 06/08/25 12:00 06/08/25 12:01 Hydromorphone HCl 0.5 mg Q10M PRN IV 06/08/25 12:30 06/08/25 15:30 Morphine Sulfate 2 mg Q4H PRN IV 06/08/25 12:00 06/08/25 16:01 Hydromorphone HCl 0.25 mg Q10M PRN IV 06/08/25 12:30 06/08/25 15:30 Morphine Sulfate 1 mg Q30M PRN IV 06/08/25 13:00 06/08/25 15:01 Laboratory Results Laboratory Tests 06/04/25 07:53 06/05/25 06:22 Urinalysis Test 05/31/25 00:14 Urine Color Colorless (Yellow) Urine Clarity Clear (Clear) Urine pH 6.0 (5.0-9.0) Urine Specific [place] 1.026 (1.001-1.035) Urine Protein Negative (Negative) Urine Ketones 1+ (Negative) H Urine Blood Negative /uL (Negative) Urine Nitrite Negative (Negative) Urine Bilirubin Negative (Negative) Urine Urobilinogen Normal mg/dL (Negative) Urine Leukocyte Esterase Negative /uL (Negative) Urine RBC 2 /hpf (0 - 3) Urine Microscopic WBC 1 /HPF (0-3) Urine Squamous Epithelial Cells None seen /hpf (<5) Urine Bacteria None seen /hpf (None Seen) Urine Creatinine 15.37 mg/dL (30.0-125.0) L Urine Protein/Creatinine Ratio 0.39 Urine Glucose 4+ mg/dL (Normal) H Urine Total Protein < 6.0 mg/dL (1-14) Microbiology Microbiology Date/Time Source Procedure Growth Status 05/30/25 21:41 Blood Blood Culture - Final NO GROWTH AFTER 5 DAYS OF INCUBATION. Complete Assessment/Plan Assessment/Plan ASSESSMENT: Patient is a 70 year old seen on the floor for a worsening ulcer PLAN: - The patients chart was reviewed, clinical findings were discussed with the patient, the etiologies of the conditions were discussed in detail, and a treatment plan was agreed to at this time, with both oral and written instructions provided. - had angio performed yesterday by cardiology - will perform hallux amputation today - patient has been npo since midnight - concern for ability to heal the amputation - will get deep cultures today All questions were answered and concerns addressed to the patient's satisfaction. The patient was given the phone number to the clinic and was told how to make contact with the clinic should any concerns or questions arise. Patient understands that if any questions or concerns arise prior to the next appointment, we should be contacted immediately. FOLLOW-UP: Continue to follow while inpatient Plan discussed with: Patient My Orders Orders - VIRGINIA FREY DPM Procedure Category Date Status Time Obtain Consent For: ORDERS 06/08/25 Transmitted 09:05 Problem List: (1) Cholelithiasis (2) Cellulitis of right foot (3) Type 2 diabetes mellitus with hyperglycemia (4) IVC thrombosis (5) Generalized abdominal pain (6) Dry gangrene Visit Coding Podiatry Date of Service if different f: Jun 08, 2025 Billing Provider: VIRGINIA FREY DPM Podiatry Common Visit Codes: [id number] INP/OBS CARE(HIGH) VIRGINIA FREY DPM Jun 08, 2025 11:58
[2025-06-08] MEDS ORDERED: METOCLOPRAMIDE HCL 5MG/ml INJ 2ml VIAL IV PRN (12:00)
[2025-06-08] MEDS: KETOROLAC TROMETH 30 MG/ML 1ML VIAL IV ONE (12:00)
[2025-06-08] MEDS ORDERED: MORPHINE SULFATE 4 MG/ML SYR/VIAL IV PRN (12:00)
[2025-06-08] MEDS: ACCU-CHEK COMFORT CURVE STRIP VI ONE (12:00)
[2025-06-08] MEDS ORDERED: KETAMINE 50mg/ML 1ml syringe ONE (12:02)
[2025-06-08] MEDS ORDERED: SODIUM CHLORIDE LOCK 10 ML ONE (12:02)
[2025-06-08] MEDS ORDERED: LIDOCAINE 1% INJ PF 5ML AMP ONE (12:02)
[2025-06-08] MEDS ORDERED: ONDANSETRON HCL 4 MG/2 ML VIAL ONE (12:02)
[2025-06-08] MEDS ORDERED: fentaNYL CITRATE 100 MCG/2 ML VL ONE (12:02)
[2025-06-08] MEDS ORDERED: MIDAZOLAM HCL 2MG/2ML 2ml VIAL (1mg/ml) ONE (12:02)
[2025-06-08] MEDS ORDERED: PROPOFOL 10 MG/ML 20 ML IV ONE (12:02)
[2025-06-08] MEDS: BUPIVACAINE 0.5% MPF INJ 30ML SDV IJ ONE (12:09)
[2025-06-08 12:17] LABS: Hematocrit 38.4 % (41.0-53.0); Hemoglobin 13.3 g/dL (13.5-17.5); Mean Corpuscular Hemoglobin 33.6 pg (28.0-32.0); Mean Corpuscular Volume 97.3 fL (80.0-100.0); Nucleated Red Blood Cells % 0.0 %
[2025-06-08] MEDS: VANCOMYCIN HCL 1000 MG VL ONE (12:19)
[2025-06-08] MEDS ORDERED: HYDROmorphone HCL 2 MG/ML VL/or syr IV PRN ×2 (12:30)
[2025-06-08 12:35] LABS: INR 1.03 (0.9-1.15); Partial Thromboplastin Time 26.8 SEC (24.5-34.5); Prothrombin Time 10.9 sec (9.3-11.8)
[2025-06-08 12:38] LABS: Alanine Aminotransferase 14 U/L (7-40); Albumin 3.8 g/dL (3.2-4.8); Anion Gap 9 (5-15); BUN/Creatinine Ratio 8.5 (10.0-20.0); Bilirubin, Total 0.5 mg/dL (0.2-1.0); Calcium 8.8 mg/dL (8.7-10.4); Carbon Dioxide 24 mmol/L (20-31); Chloride 103 mmol/L (98-107); Potassium 4.3 mmol/L (3.5-5.1); Sodium 136 mmol/L (136-145); Total Protein 7.0 g/dL (5.7-8.2)
[2025-06-08 12:40] LABS: Alkaline Phosphatase 176 U/L (46-116); Blood Urea Nitrogen 7 mg/dL (9-23); Glucose 139 mg/dL (74-106)
--- NOTE | 2025-06-08 12:48 | DVHOP2 ---
Operative Report - 2 Report Details Date: 06/08/25 Preop Diagnosis: 1. Right hallux osteomyelitis 2. Right hallux abscess 3. Right hallux gangrene Postop Diagnosis: Same as preop Surgeon: Virginia Frey MD Anesthesiologist: See anesthesia Anesthesia: Mac Consent: The patient was informed of the risks and benefits of the procedure. These include but are not limited to complications of anesthesia, postoperative infection, incomplete relief of symptoms, recurrence of symptoms, damage to blood vessels, nerves and tendons, deep venous thrombosis, pulmonary embolism and possible need for repeat surgery in the future. Complications: None Estimated Blood Loss: Minimal Fluids: See anesthesia Findings: Consistent with diagnosis Indications for Surgery: Worsening right foot gangrene Name of Procedure Performed 1. Right hallux amputation (31823) 2. Right diabetic flap (23484) 3. Right delayed closure (46918) Procedure Details Procedure Details: PRE-PROCEDURE INFORMATION: In the pre-op holding area, the extremity to be operated on was clearly marked and the patient verified correct laterality of the marking. The patient was transferred to the OR table and placed in a supine position. A timeout was performed in which identification of the correct patient, procedure, location, and materials was done. The right foot and leg were prepped and draped in normal sterile fashion. DESCRIPTION OF PROCEDURE: Attention was directed to the right 1st digit where a fish mouth type incision was made about the MPJ of the digit. This incision enveloped the ulceration that was on the distal tip of the digit and allowed adequate coverage of the remaining bone for flap closure. This incision was deepened to the level of the bone and utilizing sharp dissection, the distal aspect of the digit was removed at the distal interphalangeal joint level. It was clear after resection of the bone that the remaining bone left intact was viable and appeared to have no signs of osteomyelitis or other infection. Utilizing a rongeur and other instrumentation, all devitalized soft tissue was removed from the area. The infected bone that had been amputated was sent for culture and pathology. Due to the soft tissue deficit, rotational advancement flap was designed medially to laterally and elevated preserving vascularity. A delayed closure was then performed using 2-0 nylon after was deemed appropriate with no longer concern for infection. All surgical wounds were irrigated copiously with saline and closed in layers with the aforementioned suture material. A dry sterile dressing was placed on the surgical extremity. The patient was placed in a postop shoe POSTOPERATIVE INFORMATION: The patient tolerated the above noted procedure and anesthesia well and was transferred to the PACU with vital signs stable, and vascular status intact with capillary refill intact to all digits. Recommend patient gets 2 weeks of Keflex post discharge. Patient can weightbear as tolerated in in a postop shoe. Leave dressings intact unless saturated, then Xeroform, gauze Kerlix Jose. Follow up with me in 1 week Condition Good Disposition Still a Patient Visit Coding Podiatry Date of Service if different f: Jun 08, 2025 Billing Provider: VIRGINIA FREY DPM Podiatry Common Visit Codes: PROCEDURE ONLY 45863 -LATE CLOSURE OF WOUND: [id number] CLOS RT [place] 74825-MRQ TRNFR F/C/C/M/N/A/-TA- TIS TF RT [place] [id number] OF TOE: 22760 TA AMP OF TOE RT GREAT TOE VIRGINIA FREY DPM Jun 08, 2025 12:48
[2025-06-08] MEDS ORDERED: MORPHINE SULFATE INJ 2 MG/ml SYRG IV PRN (13:00)
[2025-06-09] VITALS (8 sets, daily range): BP systolic 101–131; BP diastolic 59–76; PULSE 79–94; RESP 16–17; TEMP 98.1–98.7; O2SAT 94–99
[2025-06-09 08:23] LABS: Hematocrit 35.7 % (41.0-53.0); Hemoglobin 12.4 g/dL (13.5-17.5); Mean Corpuscular Hemoglobin 33.8 pg (28.0-32.0); Mean Corpuscular Volume 97.0 fL (80.0-100.0); Nucleated Red Blood Cells % 0.1 %
[2025-06-09] MEDS ORDERED: CEPH250C PO (15:06)
[2025-06-09] MEDS ORDERED: HYDR1TAB97 PO (15:07)
--- NOTE | 2025-06-09 15:21 | DVHDS2 ---
Discharge Summary Date of Admission May 31, 2025 at 07:34 Date of Discharge: Jun 09, 2025 Labs/Diagnostic Data: Laboratory Results Test 06/09/25 07:55 06/09/25 06:29 06/08/25 11:42 06/08/25 11:39 White Blood Count 19.9 10^3/uL (4.4-10.8) Red Blood Count 3.68 10^6/uL (4.5-5.90) Hemoglobin 12.4 g/dL (13.5-17.5) Hematocrit 35.7 % (41.0-53.0) Mean Corpuscular Volume 97.0 fL (80.0-100.0) Mean Corpuscular Hemoglobin 33.8 pg (28.0-32.0) Mean Corpuscular Hemoglobin Concent 34.9 g/dL (32.0-36.0) Red Cell Distribution Width 13.2 % (11.8-14.3) Platelet Count 398 10^3/uL (140-450) Mean Platelet Volume 8.0 fL (6.9-10.8) Neutrophils (%) (Auto) 73.8 % (37.0-80.0) Lymphocytes (%) (Auto) 13.2 % (10.0-50.0) Monocytes (%) (Auto) 12.5 % (0.0-12.0) Eosinophils (%) (Auto) 0.2 % (0.0-7.0) Basophils (%) (Auto) 0.3 % (0.0-2.0) Neutrophils # (Auto) 14.7 10 ^3/uL (1.6-8.6) Lymphocytes # (Auto) 2.6 10 ^3/uL (0.4-5.4) Monocytes # (Auto) 2.5 10 ^3/uL (0-1.3) Eosinophils # (Auto) 0 10 ^3/uL (0-0.8) Basophils # (Auto) 0.1 10 ^3/uL (0-0.2) Nucleated Red Blood Cells 0.1 % POC Glucose 76 mg/dl (70-106) Sodium Level 136 mmol/L (136-145) Potassium Level 4.3 mmol/L (3.5-5.1) Chloride Level 103 mmol/L (98-107) Carbon Dioxide Level 24 mmol/L (20-31) Anion Gap 9 (5-15) Blood Urea Nitrogen 7 mg/dL (9-23) Creatinine 0.82 mg/dL (0.700-1.30) Glomerular Filtration Rate Calc 95 mL/min (>90) BUN/Creatinine Ratio 8.5 (10.0-20.0) Serum Glucose 139 mg/dL (74-106) Calcium Level 8.8 mg/dL (8.7-10.4) Total Bilirubin 0.5 mg/dL (0.2-1.0) Aspartate Amino Transferase (AST) 18 U/L (13-40) Alanine Aminotransferase (ALT) 14 U/L (7-40) Alkaline Phosphatase 176 U/L (46-116) Total Protein 7.0 g/dL (5.7-8.2) Albumin 3.8 g/dL (3.2-4.8) Prothrombin Time 10.9 sec (9.3-11.8) Prothrombin Time INR 1.03 (0.9-1.15) Activated Partial Thromboplast Time 26.8 SEC (24.5-34.5) Test 06/03/25 06:50 05/31/25 17:23 05/31/25 04:53 05/31/25 00:14 Vancomycin Level Trough 18.1 ug/mL (5-10) B-Type Natriuretic Peptide 76.47 pg/mL (0-100) Erythrocyte Sedimentation Rate 29 mm/hr (0-20) Hemoglobin A1c > 14.0 % A1C (<5.7) Lactic Acid Level 2.0 mmol/L (0.4-2.0) C-Reactive Protein High Sensitivity 6.72 mg/dL (<1.0) Thyroid Stimulating Hormone (TSH) 1.51 uIU/mL (0.55-4.78) Urine Color Colorless (Yellow) Urine Clarity Clear (Clear) Urine pH 6.0 (5.0-9.0) Urine Specific [place] 1.026 (1.001-1.035) Urine Protein Negative (Negative) Urine Ketones 1+ (Negative) Urine Blood Negative /uL (Negative) Urine Nitrite Negative (Negative) Urine Bilirubin Negative (Negative) Urine Urobilinogen Normal mg/dL (Negative) Urine Leukocyte Esterase Negative /uL (Negative) Urine RBC 2 /hpf (0 - 3) Urine Microscopic WBC 1 /HPF (0-3) Urine Squamous Epithelial Cells None seen /hpf (<5) Urine Bacteria None seen /hpf (None Seen) Urine Creatinine 15.37 mg/dL (30.0-125.0) Urine Protein/Creatinine Ratio 0.39 Urine Glucose 4+ mg/dL (Normal) Urine Total Protein < 6.0 mg/dL (1-14) Urine Opiates Screen Pos (NEGATIVE) Urine Fentanyl Screen Neg (NEGATIVE) Urine Barbiturates Screen Neg (NEGATIVE) Urine Phencyclidine Screen Neg (NEGATIVE) Urine Amphetamines Screen Neg (NEGATIVE) Urine Benzodiazepines Screen Neg (NEGATIVE) Urine Cocaine Screen Neg (NEGATIVE) Urine Cannabinoids Screen Neg (NEGATIVE) Test 05/30/25 21:41 Lipase 29 U/L (12-53) Other Laboratory Tests 06/09/25 07:55 06/08/25 11:42 Brief Hx & Hospital Course: 70-year-old with a past medical history of diabetes and hypertension came to the emergency with complaints of right upper quadrant pain and black discoloration of the right 1st hallux. patient reported that he had right upper quadrant pain for a few days now but yesterday it increased, is a stabbing type, radiates to the epigastric region, 10/ 10 in intensity, not associated with any aggravating or relieving factors. It was not associated with any nausea, vomiting, diarrhea, chills, fever. Patient also reports that his right tip of the toe has become black since the last 2 months and he sometimes feels shooting pain. He has been going to [facility] to get it cleaned. Patient has a [id number] amputation of the left leg and is in home hospice. 06/01/2025: Patient was seen by me at the bedside. Patient has no new active complaints. Podiatry consult suggested CT. CT with runoff has been ordered, results pending. 06/02/2025: Patient was seen by me at the bedside. Patient complained of pain in his foot today and was given Lewis. CTA with runoff shows the popliteal artery and below knee arteries are adequately assess due to suboptimal contrast bolus and extensive vascular calcification. We had conducted Doppler day before yesterday which showed a whooshing sound in both dorsalis pedis and posterior tibial artery. Informed Dr. Guadarrama regarding all results. Consult with vascular surgery, pending regarding CTA and evaluation for angiogram. 06/03/2025:Patient was seen by me at the bedside. Patient has no new active complaints. He says that his feet hurts him a little bit. Pending vascular surgery consult 06/04:Patient was seen by me at the bedside. Today the patient reported that he has not passed stool for 4 days. He also stated he had not passed any gas. A KUB was done which showed nonobstructive bowel gas pattern, large stool burden. MiraLAX 17 g per orally was given once. He also complains that he is unable to know when he is voiding. A bladder scan ordered, normal results. cardio consultation done, they have suggested angiography on Saturday. 06/07: Angiogram shows good flow, contacted Podiatry, NPO midnight,. Continue IV antibiotics 06/08: Patient going for OR today for intervention with Podiatry. Patient was comfortable in bed with complaining pain of 10/10. We will continue prn analgesia as per DEC 19: Patient was taken to OR yesterday, I&D and amputation was done all right hallux. Patient healing well pain control, per podiatry recommendation of antibiotics. Patient wants to go back to hospice. We will continue antibiotics and have patient follow up with PCP in hospice company to resume home meds and discuss ongoing indication for hospice. Patient is stable vitals , stable for discharge as per plan below. Diagnosis: Right hallux osteomyelitis s/p amputation 06/09/25 Right hallux abscess s/p I&D 06/09/25 Right hallux gangrene s/p amputation 06/09/25 # Dry gangrene on right 1st hallux # Sepsis due to right foot cellulitis # Asymptomatic Cholelithiasis Peripheral artery disease, status post angiogram adequate follow right extremity # Hepatic steatosis # slow transit constipation # possible IVC thrombus # uncontrolled Diabetes mellitus type 2, HbA1c >14 # MARY due to [facility] discharge plan: - Per patient want to continue hospice status, return to hospice home hospice. - After amputation, okay to walk weight-bearing on right foot but use surgical boot /postop shoe. - Home health for dressing changes in medication management. - Keflex 500mg (2 tablets), twice daily for 14 days - Follow up with Podiatry 1-2 weeks - Continue other medications per hospice. - unclear indication of hospice, follow up with PCP Condition at Discharge: Good Final Diagnosis/Problems List Right hallux osteomyelitis s/p amputation 06/09/25 Right hallux abscess s/p I&D 06/09/25 Right hallux gangrene s/p amputation 06/09/25 # Dry gangrene on right 1st hallux # Sepsis due to right foot cellulitis # Asymptomatic Cholelithiasis Peripheral artery disease, status post angiogram adequate follow right extremity # Hepatic steatosis # slow transit constipation # possible IVC thrombus # uncontrolled Diabetes mellitus type 2, HbA1c >14 # MARY due to [facility] Discharge Disposition: Hospice - Home Discharge Instruct/Medications Diet: Consistent carbohydrate, Cardiac 2g Na,low cholest Activity: No Restrictions, As Tolerated Follow Up/Referral: Below Medications: Below Scheduled Cephalexin (Keflex Capsule), 2 CAP PO BID Scheduled PRN Hydrocodone-Acetaminophen (Hydrocodone/Acetaminophen 5-325 mg), 1 TAB PO TIDP PRN Discharge Statement: "Patient was advised to return to the ER or call 911 if any headaches, dizziness, shortness of breath, chest pain, abdominal pain, bleeding, fevers, or worsening of medical condition. Patient was counseled about treatment plan, medications, possible side effects, patientverbalized understanding. All questions were answered to the best of my ability. This discharge took greater then 30 minutes in planning, reviewing documentation, counseling the patient, and discussing with other team members." Date of Service: Jun 09, 2025 Billing Provider: ELIAS BOB MD Common Visit Codes: 27591-NDT/OBS DISCH DAY >30min ELIAS BOB MD Jun 09, 2025 15:21
[2025-06-10] MEDS: HYDROcodone-ACET 7.5/325MG TAB PO ONE (00:11)
[2025-06-10 01:00] VITALS: BP 134/80; PULSE 81; RESP 17; TEMP 98.4; O2SAT 97
[2025-06-10 05:00] VITALS: BP 117/64; PULSE 83; RESP 17; TEMP 98.3; O2SAT 95
[2025-06-10 09:00] VITALS: BP 126/77; PULSE 92; RESP 18; TEMP 98.1; O2SAT 95
[2025-06-10 10:53] VITALS: BP 126/77; PULSE 92; RESP 18; TEMP 36.7; O2SAT 95
--- NOTE | 2025-06-10 16:14 | DVHPN2 ---
Subjective Patient doing well, pain at gangrenous toe, seen at bedside today Reviewed: Care Plan Changes from previous H/P or p: No Changes General: Per HPI Eyes: No Pain, No Vision change, No Conjunctivae inflammation, No Eyelid inflammation, No Other, No Redness ENT: No Ear pain, No Ear discharge, No Nose pain, No Nose discharge, No Nose congestion, No Mouth pain, No Mouth swelling, No Throat pain, No Throat swelling, No Other Cardiovascular: No Chest Pain, No Palpitations, No Orthopnea, No Paroxysmal Noc. Dyspnea, No Edema, No Lt Headedness, No Other Respiratory: No Cough, No Dry, No Shortness of breath, No SOB with excertion, No Wheezing, No Hemoptysis, No Pleuritic Pain, No Sputum, No Other Gastrointestinal: No Nausea, No Vomiting; Abdominal Pain; No Diarrhea, No Constipation, No Melena, No Hematochezia, No Other Genitourinary: No Dysuria, No Frequency, No Incontinence, No Hematuria, No Retention, No Other Musculoskeletal: No other, No neck pain, No shoulder pain, No arm pain, No back pain, No hand pain, No leg pain, No foot pain Skin: No Rash, No Lesions, No Jaundice, No Bruising, No Other Objective Vitals Vital Signs Date Time Temp Pulse Resp B/P (MAP) Pulse Ox O2 Delivery O2 Flow Rate FiO2 06/10/25 10:53 36.7 92 18 95 06/10/25 09:00 126/77 (93) 06/10/25 08:00 Room Air* 0 21 Intake/Output Intake and Output 06/10/25 07:00 Intake Total 1050 ml Balance 1050 ml Intake Oral 800 ml IV Total 250 ml # Voids 4 # Bowel Movements 2 Exam GEN: Healthy appearing, well-developed, NAD. HEENT: NC/AT; MMM. CV: RRR, no m/r/g. LUNGS: CTAB, no w/r/c. ABD: Soft, NT/ND, NBS, no masses or organomegaly. EXT: skin Warm, well perfused. no rashes. No clubbing, cyanosis, or edema. R ight big toe gangrenous NEURO: Ambulating with no limitations. No focal deficits. Medications Current Medications Medications Dose Ordered Sig/Philip Route Start Time Stop Time Status Last Admin Dose Admin Enoxaparin Sodium 70 mg Q12HR SC 05/31/25 10:00 UNV Laboratory Results Laboratory Tests 06/08/25 11:42 06/09/25 07:55 Urinalysis Test 05/31/25 00:14 Urine Color Colorless (Yellow) Urine Clarity Clear (Clear) Urine pH 6.0 (5.0-9.0) Urine Specific [place] 1.026 (1.001-1.035) Urine Protein Negative (Negative) Urine Ketones 1+ (Negative) H Urine Blood Negative /uL (Negative) Urine Nitrite Negative (Negative) Urine Bilirubin Negative (Negative) Urine Urobilinogen Normal mg/dL (Negative) Urine Leukocyte Esterase Negative /uL (Negative) Urine RBC 2 /hpf (0 - 3) Urine Microscopic WBC 1 /HPF (0-3) Urine Squamous Epithelial Cells None seen /hpf (<5) Urine Bacteria None seen /hpf (None Seen) Urine Creatinine 15.37 mg/dL (30.0-125.0) L Urine Protein/Creatinine Ratio 0.39 Urine Glucose 4+ mg/dL (Normal) H Urine Total Protein < 6.0 mg/dL (1-14) Microbiology Microbiology Date/Time Source Procedure Growth Status 05/30/25 21:41 Blood Blood Culture - Final NO GROWTH AFTER 5 DAYS OF INCUBATION. Complete Labs and/or images reviewed: Labs reviewed by me, Image(s) reviewed by me Assessment/Plan Assessment/Plan Review of Systems 70-year-old with a past medical history of diabetes and hypertension came to the emergency with complaints of right upper quadrant pain and black discoloration of the right 1st hallux. patient reported that he had right upper quadrant pain for a few days now but yesterday it increased, is a stabbing type, radiates to the epigastric region, 10/ 10 in intensity, not associated with any aggravating or relieving factors. It was not associated with any nausea, vomiting, diarrhea, chills, fever. Patient also reports that his right tip of the toe has become black since the last 2 months and he sometimes feels shooting pain. He has been going [facility] get it cleaned. Patient has a [id number] amputation of the left leg and is in home hospice. 06/01/2025: Patient was seen by me at the bedside. Patient has no new active complaints. Podiatry consult suggested CT. CT with runoff has been ordered, results pending. 06/02/2025: Patient was seen by me at the bedside. Patient complained of pain in his foot today and was given [place]. CTA with runoff shows the popliteal artery and below knee arteries are adequately assess due to suboptimal contrast bolus and extensive vascular calcification. We had conducted Doppler day before yesterday which showed a whooshing sound in both dorsalis pedis and posterior tibial artery. Informed Dr. Guadarrama regarding all results. Consult with vascular surgery, pending regarding CTA and evaluation for angiogram. 06/03/2025:Patient was seen by me at the bedside. Patient has no new active complaints. He says that his feet hurts him a little bit. Pending vascular surgery consult 06/04:Patient was seen by me at the bedside. Today the patient reported that he has not passed stool for 4 days. He also stated he had not passed any gas. A KUB was done which showed nonobstructive bowel gas pattern, large stool burden. MiraLAX 17 g per orally was given once. He also complains that he is unable to know when he is voiding. A bladder scan ordered, normal results. cardio consultation done, they have suggested angiography on Saturday. 06/07: Angiogram shows good flow, contacted Podiatry, NPO midnight,. Continue IV antibiotics 06/08: Patient going for OR today for intervention with Podiatry. Patient was comfortable in bed with complaining pain of 10/10. 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
== END 2025-06-10 12:45 | disposition hospice, home (50) | DRG 853 ==
LOC: ER 21:23 → EDBD 21:23 → OVERFLOW 05-31 07:34 → TELE-WESTW 05-31 17:48
PROVIDERS: ADMIT Student in an Organized Health Care Education/Training Program; ATTEND Student in an Organized Health Care Education/Training Program
PROC: B41FYZZ Fluoroscopy of Right Lower Extremity Arteries using Other Contrast (ICD-10-PCS; 2025-06-07)
PROC: B41GYZZ Fluoroscopy of Left Lower Extremity Arteries using Other Contrast (ICD-10-PCS; 2025-06-07)
PROC: 0HXMXZZ Transfer Right Foot Skin, External Approach (ICD-10-PCS; 2025-06-08)
PROC: 0Y6P0Z3 Detachment at Right 1st Toe, Low, Open Approach (ICD-10-PCS; principal; 2025-06-08 12:21)
DX: A41.9 Sepsis, unspecified organism (principal); I82.220 Acute embolism and thrombosis of inferior vena cava; N17.0 Acute kidney failure with tubular necrosis; I70.92 Chronic total occlusion of artery of the extremities; L03.115 Cellulitis of right lower limb; E11.52 Type 2 diabetes mellitus with diabetic peripheral angiopathy with gangrene; L02.611 Cutaneous abscess of right foot; L97.518 Non-pressure chronic ulcer of other part of right foot with other specified severity; M86.9 Osteomyelitis, unspecified; K76.0 Fatty (change of) liver, not elsewhere classified; E11.621 Type 2 diabetes mellitus with foot ulcer; I10 Essential (primary) hypertension; E11.65 Type 2 diabetes mellitus with hyperglycemia; K80.20 Calculus of gallbladder without cholecystitis without obstruction; E78.5 Hyperlipidemia, unspecified; K59.01 Slow transit constipation; Z89.512 Acquired absence of left leg below knee; Z83.3 Family history of diabetes mellitus; Z82.49 Family history of ischemic heart disease and other diseases of the circulatory system; E11.69 Type 2 diabetes mellitus with other specified complication
CPT/HCPCS: 36415; 71045; 73620; 73700; 74018; 75635; 75716; 76705; 80048; 80053; 80202; 80307; 81001; 82570; 82962; 83036; 83605; 83690; 83880; 84156; 84443; 85025; 85610; 85652; 85730; 86141; 86850; 86900; 86901; 87040; 93925; 93971; 99152; 99291; G0378; J0692; J1815; J2250; J2405; J2470; J2704; J3490; Q9967

== ENCOUNTER 2025-06-18 12:30 | Inpatient (IN) | payer OTHER, MEDICAID ==
[~2025-06-18] VITALS: Ht 167.6 cm; Wt 53.1 kg
[2025-06-18] VITALS (23 sets, daily range): BP systolic 104–175; BP diastolic 60–95; PULSE 92–209; RESP 17–29; O2SAT 93–100
[~2025-06-18 12:30] MED LIST: CEPH250C PO; HYDR1TAB97 PO
--- NOTE | 2025-06-18 13:02 | ED.PDOC ---
History of Present Illness HPI Comments 70-year-old male BIBA with prior medical history of dementia, hypertension, diabetes: Surgical history of BKA LLE, toe amputation RLE and the chief complaint of generalized weakness, hyperglycemia RVR, and patient is A/Ox1. Per friends on scene stated medications at home. The blood sugar in route read hig h. EMS note that the patient did pull the IV in route to the ER. Patient does have an increased work of breathing and was hypotensive on scene of 76/40, 118 over 76 upon arrival to the ER on 93% via room air. Denies chills, fever, N/V/D, SOB, CP. No other associated symptoms, modifiers, recent injuries or sick contacts present at this time. Chief Complaint: General Weakness Time Seen by MD: 13:00 Reviewed Notes: Nurses Notes, Medications, Allergies Allergies: Coded Allergies: NO KNOWN ALLERGIES (Unverified , 05/30/25) Home Meds Active Scripts Hydrocodone-Acetaminophen (Hydrocodone/Acetaminophen 5-325 mg) 1 Tab Tab, 1 TAB PO TIDP PRN for 7 Days, #21 TAB 0 Refills Prov:ELIAS BOB MD 06/09/25 Cephalexin (KEFLEX CAPSULE) 250 Mg Cp, 2 CAP PO BID for 14 Days, #56 CAP 0 Refills Prov:ELIAS BOB MD 06/09/25 Information Source: Emergency Med Personnel Mode of Arrival: EMS Severity: Moderate Timing: Came on: Suddenly Duration: Since onset Prehospital treatment: None Past Medical History PAST MEDICAL HISTORY: Dementia, DM, HTN Surgical History: BKA (LLE) Surgical History (Other): RLE toe amputation Family History Family History: Reviewed,noncontributory to illness, Unknown Social History Smoker: Unknown, Pt Confused Alcohol: Unknown, Pt Confused Drugs: Unknown, Pt Confused Lives In: Unknown, Pt Confused Unable to Obtain due to: Altered Mental Status All Other Systems: Reviewed and Negative Physical Exam General Appearance: Moderate Distress HEENT: Pale Conjuntivae (L), Pale Conjuntivae (R) Neck: Normal Inspection Respiratory: Respiratory Distress Cardiovascular: Tachycardia Breast Exam: Deferred Gastrointestinal: Non Tender Genitalia: Normal Pelvic: Deferred Rectal: Deferred Extremities: Other (Right foot with purulent gangrene) Musculoskeletal : Apperance: Normal Neurologic: Other (Altered mental status) Cerebellar Function: NOT DONE Reflexes: NOT DONE Skin: Wounds Lymphatic: NOT DONE Was a procedure done? Was a procedure done?: Yes Sedation Sedation?: No Central Line Recorder of insertion practice: Chief Sales Officer () Occupation of ultrasound applications specialist: Attending Physician () Indication: Hypotension, Volume resuscitation Room prepared for procedure: Yes Chief Sales Officer performed hand hygien: Yes Maximal sterile barrier precau: Mask/Eye shield, Sterile gown, Cap, Sterlie gloves, Large sterlie drape Skin Preparation: Chlorhexidine gluconate Skin preparation completely dr: Yes Insertion site: Right, Internal jugular Central line catheter type: Lgm-[id number]-oxj dialysis Number of lumens: 3 Central line exchanged over a: Yes Antiseptic ointment applied to: No Post Assessment: Chest X-Ray Informed consent obtained: No Risks/benefits/alt described: No Notes Pt is altered Intubation Indication: Altered Mental Status, Airway Protection Prep: Preoxygenation Pretreated with: Sedation Medicated with: Vecuronium Intubation Approach: Orotracheal Intubation size: cm (8cm) Informed consent obtained: No Risks/benefits/alt described: No Notes Pt is altered Differential Dx Considerations may include: DKA, sepsis, X-Ray, Labs, Meds, VS Vital Signs Date Time Temp Pulse Resp B/P (MAP) Pulse Ox O2 Delivery O2 Flow Rate FiO2 06/18/25 20:30 103 22 131/69 (89) 100 06/18/25 20:30 103 21 125/71 (89) 100 06/18/25 20:21 103 20 125/71 (89) 100 40 06/18/25 20:15 103 20 139/72 (94) 100 06/18/25 20:15 102 19 125/71 (89) 100 06/18/25 20:00 104 20 125/74 (91) 100 06/18/25 20:00 103 20 139/72 (94) 100 06/18/25 20:00 125/71 06/18/25 20:00 125/71 06/18/25 20:00 125/71 06/18/25 20:00 125/71 06/18/25 19:45 105 20 126/72 (90) 100 06/18/25 19:30 106 20 134/77 (96) 100 06/18/25 19:15 106 17 160/85 (110) 100 06/18/25 18:15 116 28 175/95 (121) 100 50 06/18/25 18:12 177/97 06/18/25 17:39 150/75 06/18/25 17:12 153/63 06/18/25 16:13 120 20 134/22 (59) 100 100 06/18/25 16:00 118 21 171/85 (113) 99 06/18/25 16:00 119 06/18/25 16:00 118 21 100 Mechanical Ventilator+ 100 100 06/18/25 15:45 137/77 06/18/25 15:35 124 20 130/75 (93) 100 06/18/25 15:20 126 20 131/77 (95) 100 06/18/25 15:16 125 20 104/60 100 100 06/18/25 15:05 125 20 123/73 (90) 100 06/18/25 15:00 124 20 120/72 (88) 100 06/18/25 14:50 126 18 104/60 (75) 95 06/18/25 14:45 104/60 06/18/25 14:45 148/75 06/18/25 14:45 148/75 06/18/25 14:43 125 20 104/60 (75) 100 100 06/18/25 14:39 104/63 06/18/25 14:10 184 20 98 Simple Mask* 8 60 06/18/25 14:10 98.5 184 20 105/90 (95) 95 98.5 06/18/25 14:09 209 29 93 Simple Mask* 10 99 06/18/25 13:50 97.9 194 22 161/137 (145) 98 97.9 06/18/25 13:31 190 06/18/25 13:29 205 06/18/25 12:34 164 06/18/25 12:33 99.0 131 24 118/76 93 99.0 Lab Test 06/18/25 17:33 06/18/25 16:25 06/18/25 16:23 06/18/25 15:25 Range/Units POC Glucose > 600 *H 70-106 mg/dl Sodium Level 136 # 136-145 mmol/L Potassium Level 4.6 3.5-5.1 mmol/L Chloride Level 105 # 98-107 mmol/L Carbon Dioxide Level < 10 *L 20-31 mmol/L Anion Gap 21.69893 H 5-15 Blood Urea Nitrogen 47 H 9-23 mg/dL Creatinine 2.08 H 0.700-1.30 mg/dL Glomerular Filtration Rate Calc 34 >90 mL/min BUN/Creatinine Ratio 22.6 H 10.0-20.0 Serum Glucose 664 #*H 74-106 mg/dL Calcium Level 8.4 L 8.7-10.4 mg/dL Phosphorus Level 5.0 2.4-5.1 mg/dL Magnesium Level 2.5 1.6-2.6 mg/dL Troponin I High Sensitivity 55 *H </=54 ng/L Blood Gas Specimen Type Arterial Blood Gas Sample Site Left radial Blood Gas Patient Temperature 37.0 Arterial Blood Date Drawn [id number] Arterial Blood pH 7.052 *L 7.350-7.450 Arterial Blood Partial Pressure CO2 30.8 L 35.0-48.0 mmHg Arterial Blood Partial Pressure O2 440.9 *H 83.0-108.0 mmHg Arterial Blood HCO3 8.4 L 21.0-28.0 mmol/L Arterial Blood Oxygen Saturation 99.7 H 94.0-98.0 % Arterial Blood Base Excess -21.0 L -2.0-3.0 mmol/L Arterial Blood Oxyhemoglobin 98.7 H 94.0-98.0 % Arterial Blood Carboxyhemoglobin 0.4 L 0.5-1.5 % Arterial Blood Methemoglobin 0.6 0.0-1.5 % Vicente Test Modified Blood Gas Total Hemoglobin 15.50 13.5-17.5 g/dL Blood Gas Set Respiration Rate 20.0 Blood Gas Modality Vent - ac FiO2 % 100.0 Blood Gas Tidal Volume 400.0 Blood Gas PEEP or CPAP 5.0 Blood Gas Critical Value Read Back yes Blood Gas Notified Whom patrick arias md Blood Gas Notified Time [id number] Blood Gas Notified By exercise scientist kat mccartney Lactic Acid Level 2.3 *H 0.4-2.0 mmol/L Test 06/18/25 14:12 06/18/25 13:37 06/18/25 13:18 06/18/25 13:09 Range/Units Troponin I High Sensitivity 36 31 </=54 ng/L Urine Color Light-yellow Yellow Urine Clarity Clear Clear Urine pH 5.5 5.0-9.0 Urine Specific [place] 1.025 1.001-1.035 Urine Protein Trace H Negative Urine Ketones 2+ H Negative Urine Blood Trace H Negative /uL Urine Nitrite Negative Negative Urine Bilirubin Negative Negative Urine Urobilinogen Normal Negative mg/dL Urine Leukocyte Esterase Negative Negative /uL Urine RBC 1 0 - 3 /hpf Urine Microscopic WBC < 1 0-3 /HPF Urine Squamous Epithelial Cells None seen <5 /hpf Urine Bacteria Few H None Seen /hpf Urine Hyaline Casts Few 0 - 2 /lpf Urine Glucose 4+ H Normal mg/dL POC Glucose > 600 *H 70-106 mg/dl White Blood Count 26.7 H 4.4-10.8 10^3/uL Red Blood Count 4.27 L 4.5-5.90 10^6/uL Hemoglobin 14.6 13.5-17.5 g/dL Hematocrit 48.4 41.0-53.0 % Mean Corpuscular Volume 113.4 H 80.0-100.0 fL Mean Corpuscular Hemoglobin 34.2 H 28.0-32.0 pg Mean Corpuscular Hemoglobin Concent 30.2 L 32.0-36.0 g/dL Red Cell Distribution Width 15.9 H 11.8-14.3 % Platelet Count 568 H 140-450 10^3/uL Mean Platelet Volume 9.5 6.9-10.8 fL Neutrophils (%) (Auto) 37.0-80.0 % Lymphocytes (%) (Auto) 10.0-50.0 % Monocytes (%) (Auto) 0.0-12.0 % Basophils (%) (Auto) 0.0-2.0 % Neutrophils # (Auto) 1.6-8.6 10 ^3/uL Lymphocytes # (Auto) 0.4-5.4 10 ^3/uL Monocytes # (Auto) 0-1.3 10 ^3/uL Differential Total Cells Counted 100.0 100 Neutrophils % (Manual) 87 H 37.0-80.0 Band Neutrophils % (Manual) 4 Lymphocytes % (Manual) 2 L 10.0-50.0 Monocytes % (Manual) 6 0-12 Eosinophils % (Manual) 1 0-7 Basophils % (Manual) 0 0.0-2.0 Metamyelocytes % (manual) 0 Myelocytes % (Manual) 0 Promyelocytes % (Manual) 0 Blast Cells % (Manual) 0 Reactive Lymphocytes 0 Platelet Estimate Increased Hypochromasia (manual) Slight Anisocytosis (manual) Slight Macrocytosis Marked Sodium Level 126 L 136-145 mmol/L Potassium Level 5.5 H 3.5-5.1 mmol/L Chloride Level 90 L 98-107 mmol/L Carbon Dioxide Level < 10 *L 20-31 mmol/L Anion Gap 26.00299 H 5-15 Blood Urea Nitrogen 43 H 9-23 mg/dL Creatinine 2.58 H 0.700-1.30 mg/dL Glomerular Filtration Rate Calc 26 >90 mL/min BUN/Creatinine Ratio 16.7 10.0-20.0 Serum Glucose 852 *H 74-106 mg/dL Calcium Level 10.2 8.7-10.4 mg/dL Beta-Hydroxybutyric Acid > 4.500 H < 0.4 mmol/L Test 06/18/25 12:50 Range/Units Lactic Acid Level 3.6 *H 0.4-2.0 mmol/L Microbiology Date/Time Source Procedure Growth Status 06/18/25 15:04 Sputum Gram Stain - Final Complete 06/18/25 15:04 Respiratory Culture - Final Klebsiella pneumoniae Leclercia adecarboxylata Enterobacter cloacae Citrobacter farmeri Complete 06/18/25 13:09 Blood Blood Culture - Final NO GROWTH AFTER 5 DAYS OF INCUBATION. Complete 06/18/25 12:50 Blood Blood Culture - Final NO GROWTH AFTER 5 DAYS OF INCUBATION. Complete Time of 1ST Reevaluation: 13:30 Reevaluation 1ST: Unchanged Patient Education/Counseling: Other (Patient is altered), Pt Unresponsive Family Education/Counseling: No Family Present SEPSIS Sepsis Screen Date sepsis recognized/suspect: Jun 18, 2025 Time Sepsis recognized/suspect: 1233 Recent Procedure: No On Antibiotic Therapy: No Respiratory Rate >20: Yes Heart Rate >90: Yes Temp<36 C (96.8 F) or >38.3 C: No SBP <90 or MAP <65 mmHG: No New Acute Mental Status Change: No Is the patient on CPAP, BIPAP,: No Physician Orders Chest Portable (06/18/25 12:41) Midazolam Drip 50 Mg/50ml (Versed Drip 5 (06/18/25 14:45) Abg W/ Co-Ox (06/18/25 16:00) Electrocardigram (06/18/25 15:01) Place Og Tube (06/18/25 15:24) Chest Xray 1 View (06/18/25 15:24) Neurological Assessment (06/18/25 16:47) Vs/Hemodynamics .PER UNIT PROTOCOL (06/18/25 16:47) Chest Xray 1 View (06/18/25 19:09) Vancomycin Per Pharmacy (06/18/25 20:30) *Dr. Kristen Tello -Da Laury (06/18/25 20:25) Admit (06/18/25 20:25) Allergies (06/18/25 20:25) Code Status (06/18/25 20:25) Oxygen Per Hour (06/18/25 20:25) Ondansetron Hcl (Zofran) (06/18/25 20:30) Npo (Nothing By Mouth) Diet (06/19/25 Breakfast) Condition: Critical (06/18/25 20:25) Bedrest With Bathroom Privileg (06/18/25 20:25) Nitroglycerin Sublingual (Ntrostat Subli (06/18/25 20:30) Morphine Sulfate Injection (06/18/25 20:30) Stat Ekg For Chest Pain (06/18/25 20:25) Notify Md Of Changes From Base (06/18/25 20:25) Rn Concurrent Review For 24 Hours (06/18/25 20:25) Emergency Dysrhythmia Protocol (06/18/25 20:25) Rhythm Strips Once Every Shift (06/18/25 20:25) Oxygen By Nasal Cannula (06/18/25 20:25) Vital Signs Date Time Temp Pulse Resp B/P (MAP) Pulse Ox O2 Delivery O2 Flow Rate FiO2 06/18/25 20:30 103 22 131/69 (89) 100 06/18/25 20:30 103 21 125/71 (89) 100 06/18/25 20:21 103 20 125/71 (89) 100 40 06/18/25 20:15 103 20 139/72 (94) 100 06/18/25 20:15 102 19 125/71 (89) 100 06/18/25 20:00 104 20 125/74 (91) 100 06/18/25 20:00 103 20 139/72 (94) 100 06/18/25 20:00 125/71 06/18/25 20:00 125/71 06/18/25 20:00 125/71 06/18/25 20:00 125/71 06/18/25 19:45 105 20 126/72 (90) 100 06/18/25 19:30 106 20 134/77 (96) 100 06/18/25 19:15 106 17 160/85 (110) 100 06/18/25 18:15 116 28 175/95 (121) 100 50 06/18/25 18:12 177/97 06/18/25 17:39 150/75 06/18/25 17:12 153/63 06/18/25 16:13 120 20 134/22 (59) 100 100 06/18/25 16:00 118 21 171/85 (113) 99 06/18/25 16:00 119 06/18/25 16:00 118 21 100 Mechanical Ventilator+ 100 100 06/18/25 15:45 137/77 06/18/25 15:35 124 20 130/75 (93) 100 06/18/25 15:20 126 20 131/77 (95) 100 06/18/25 15:16 125 20 104/60 100 100 06/18/25 15:05 125 20 123/73 (90) 100 06/18/25 15:00 124 20 120/72 (88) 100 06/18/25 14:50 126 18 104/60 (75) 95 06/18/25 14:45 104/60 06/18/25 14:45 148/75 06/18/25 14:45 148/75 06/18/25 14:43 125 20 104/60 (75) 100 100 06/18/25 14:39 104/63 06/18/25 14:10 184 20 98 Simple Mask* 8 60 06/18/25 14:10 98.5 184 20 105/90 (95) 95 98.5 06/18/25 14:09 209 29 93 Simple Mask* 10 99 06/18/25 13:50 97.9 194 22 161/137 (145) 98 97.9 06/18/25 13:31 190 06/18/25 13:29 205 06/18/25 12:34 164 06/18/25 12:33 99.0 131 24 118/76 93 99.0 Laboratory Tests Test 06/18/25 12:50 06/18/25 13:09 06/18/25 15:25 Lactic Acid Level 3.6 mmol/L (0.4-2.0) *H 2.3 mmol/L (0.4-2.0) *H White Blood Count 26.7 10^3/uL (4.4-10.8) H Departure 1 Departure Time of Disposition: 16:49 (Patient presents altered in in DKA and likely septic. Patient was emergently intubated and central line placed. Patient receiving fluids IV antibiotics started on insulin drip and we will admit patient for further workup) Impression: Primary Impression: DKA (diabetic ketoacidosis) Qualified Codes: E11.11 - Type 2 diabetes mellitus with ketoacidosis with coma Additional Impressions: Sepsis Qualified Codes: A41.9 - Sepsis, unspecified organism; R65.21 - Severe sepsis with septic shock; G93.41 - Metabolic encephalopathy Acute metabolic encephalopathy Disposition: ADMITTED INPATIENT Admit to: ICU Condition: Critical Critical Care Note Critical Care Time?: Yes Critical care comment: DKA and sepsis Authorized and Performed by: Rosy Gama MD Total critical care time: Approximately 114 minutes Due to a high probability of clinically significant, life threatening deterioration, the patient required my highest level of preparedness to intervene emergently and I personally spent this critical care time directly and personally managing the patient. This critical care time included obtaining a history; examining the patient; pulse oximetry; ordering and review of studies; arranging urgent treatment with development of a management plan; evaluation of patient's response to treatment; frequent reassessment; and, discussions with other providers. This critical care time was performed to assess and manage the high probability of imminent, life-threatening deterioration that could result in multi-organ failure. It was exclusive of separately billable procedures and treating other patients and teaching time. Please see my other sections and the rest of the note for further information on patient assessment and treatment. Stability Stability form required: No I personally scribed for ROSY GAMA MD ([email or web address]) on 06/18/25 at 13:02. Electronically submitted by Stanley Rubio ([email or web address]). I personally scribed for ROSY GAMA MD ([email or web address]) on 06/18/25 at 15:23. Electronically submitted by Stanley Rubio ([email or web address]). ROSY GAMA MD Jun 18, 2025 13:02
[2025-06-18] MEDS: SODIUM CHLORIDE 0.9% 1,000 ML IV ONE (13:10)
[2025-06-18 13:36] LABS: Hematocrit 48.4 % (41.0-53.0); Hemoglobin 14.6 g/dL (13.5-17.5); Mean Corpuscular Hemoglobin 34.2 pg (28.0-32.0); Mean Corpuscular Volume 113.4 fL (80.0-100.0)
[2025-06-18 13:41] LABS: Anion Gap 26.00001 (5-15)
[2025-06-18 13:42] LABS: Calcium 10.2 mg/dL (8.7-10.4)
[2025-06-18 13:46] LABS: BUN/Creatinine Ratio 16.7 (10.0-20.0)
[2025-06-18 13:56] LABS: Sodium 126 mmol/L (136-145)
[2025-06-18 13:57] LABS: Blood Urea Nitrogen 43 mg/dL (9-23); Chloride 90 mmol/L (98-107); Potassium 5.5 mmol/L (3.5-5.1)
[2025-06-18 14:00] LABS: Carbon Dioxide < 10 mmol/L (20-31); Glucose 852 mg/dL (74-106)
[2025-06-18 14:00] LABS: Urine Protein, UAD TRACE (Negative)
[2025-06-18 14:00] LABS: Lactic Acid w/Reflex 3.6 mmol/L (0.4-2.0)
[2025-06-18] MEDS: ETOMIDATE (2MG/ML) 20ML VIAL IV ONE ×2 (14:08→14:39)
[2025-06-18] MEDS: ROCURONIUM 10MG/ML 10ML VIAL IV ONE ×2 (14:08→14:39)
[2025-06-18 14:09] LABS: Anisocytosis Slight; Macrocytosis Marked; Total Cells Counted 100.0 (100)
--- NOTE | 2025-06-18 14:10 | DVH ---
EXAM: XY CHEST PORTABLE Indication: weakness Technique: Single frontal view of the chest was obtained Comparison: XY CHEST XRAY 1 VIEW on DOS: 06/04/25 FINDINGS: Lines and Tubes: None Lungs: No focal consolidation. Left upper extremity limits evaluation of the left lower thorax. Pleura: No effusion. No pneumothorax. Cardiomediastinal contours: Unremarkable Bones: No acute osseous abnormality. IMPRESSION: No acute cardiopulmonary disease.
[2025-06-18] MEDS: fentaNYL Drip 2500mCg/250mlNS 250 ML IV SCH (14:45)
[2025-06-18] MEDS: MIDAZOLAM DRIP 50 mg/50mL 50 ML IV SCH (14:45)
[2025-06-18] MEDS: NOREPINEPHRINE 8 MG/250ML KIT 250 ML IV SCH (14:45)
[2025-06-18] MEDS: fentaNYL Drip 2500mCg/250mlNS 250 ML IV ONE (15:02)
[2025-06-18] MEDS: NOREPINEPHRINE 8 MG/250ML KIT 250 ML IV ONE (15:02)
[2025-06-18] MEDS: MIDAZOLAM DRIP 50 mg/50mL 50 ML IV ONE (15:02)
--- NOTE | 2025-06-18 16:14 | DVH ---
CHEST RADIOGRAPH Indication: INTUBATION, CENTRAL LINE, AND OG PLACEMENT Technique: Single frontal view of the chest was obtained Comparison: XY CHEST PORTABLE on DOS: 06/18/25, XY CHEST XRAY 1 VIEW on DOS: 06/04/25 FINDINGS: Lines and Tubes: Endotracheal tube 1.8 cm above the alexis. Right internal jugular catheter in place either in the right atrium or cavoatrial junction. Enteric tube below the left diaphragm in the sto mach. Lungs: No focal consolidation. Pleura: No effusion. No pneumothorax. Cardiomediastinal contours: Unremarkable Bones: No acute osseous abnormality. IMPRESSION: 1. Endotracheal tube 1.8 cm above the alexis. 2. Right internal jugular line either at the cavoatrial junction or within the right atrium. 3. Enteric tube below the left diaphragm in the stomach 4. No change in the cardiopulmonary findings compared film performed earlier today at 1:48 p.m.
[2025-06-18 16:30] LABS: Base Excess -21.0 mmol/L (-2.0-3.0)
[2025-06-18 17:00] LABS: Chloride 105 mmol/L (98-107); Potassium 4.6 mmol/L (3.5-5.1); Sodium 136 mmol/L (136-145)
[2025-06-18] MEDS: INSULIN LANTUS (GLARGINE) 1 /0.01ml (100units/ml) SC ONE (17:00)
[2025-06-18] MEDS: SODIUM CHLORIDE 0.9% 1,000 ML IV SCH ×3 (17:00→23:25)
[2025-06-18] MEDS ORDERED: DEXTROSE (50%) 50ML SYRG IV PRN (17:00)
[2025-06-18 17:01] LABS: Anion Gap 21.00001 (5-15)
[2025-06-18 17:06] LABS: BUN/Creatinine Ratio 22.6 (10.0-20.0)
[2025-06-18 17:15] LABS: Blood Urea Nitrogen 47 mg/dL (9-23); Calcium 8.4 mg/dL (8.7-10.4)
[2025-06-18 17:16] LABS: Carbon Dioxide < 10 mmol/L (20-31); Glucose 664 mg/dL (74-106)
[2025-06-18] MEDS: PROPOFOL 100 ML IV SCH (17:39)
[2025-06-18 17:58] LABS: Magnesium 2.5 mg/dL (1.6-2.6)
[2025-06-18] MEDS: ACCU-CHEK COMFORT CURVE STRIP VI SCH (18:00)
[2025-06-18] MEDS: INSULIN DRIP 100 UNIT/100ML 100 ML IV SCH ×3 (18:04→21:53)
--- NOTE | 2025-06-18 20:05 | DVH ---
CHEST RADIOGRAPH Indication: ETT RE CHECK Technique: Single frontal view of the chest was obtained Comparison: XY CHEST XRAY 1 VIEW on DOS: 06/18/25, XY CHEST PORTABLE on DOS: 06/18/25, XY CHEST XRAY 1 EW on DOS: 06/04/25 FINDINGS: Lines and Tubes: Endotracheal tube terminates into the right mainstem bronchus. Recommend pulling ba ck 3 cm for more optimal positioning. Enteric tube is in satisfactory position. Right IJ approach zeeshan tral venous catheter terminates within the proximal right atrium. Lungs: No focal consolidation. Pleura: No effusion. No pneumothorax. Cardiomediastinal contours: Unremarkable Bones: No acute osseous abnormality. Gaseous distention of the stomach. IMPRESSION: Endotracheal tube terminates within the right mainstem bronchus. Recommend pulling back 3 cm for mor e optimal position. No evidence of acute cardiopulmonary disease Critical Result: Malpositioned ET tube Findings discussed with ED provider Pascale briceno at 06/18/2025 08:01 PM, and acknowledged receipt and understanding of the findings. ..
[2025-06-18] MEDS ORDERED: VANCOMYCIN PER PHARMACY 0 MG IV SCH (20:30)
[2025-06-18] MEDS ORDERED: MORPHINE SULFATE INJ 2 MG/ml SYRG IV PRN (20:30)
[2025-06-18] MEDS ORDERED: NITROGLYCERIN 0.4 MG SL TAB SL PRN (20:30)
[2025-06-18] MEDS ORDERED: ONDANSETRON HCL 4 MG/2 ML VIAL IV PRN (20:30)
--- NOTE | 2025-06-18 20:37 | DVHHP2 ---
History of Present Illness Reason for Visit: Diabetes with ketoacidosis History of Present Illness The patient is a 70-year-old male with past medical history of dementia, diabetes mellitus, and hypertension who presented to [facility] ED with complaint of generalized weakness. Patient's condition progressively get worse, alert oriented x1, so EMS were called. When EMS arrived on the scene, patient's blood sugar rate high, hypotensive, blood pressure 76/40, increased work of breathing, and was given IV fluid normal saline, oxygen O2 saturation at 96% EN route to our facility ED. patient was seen and evaluated in the ED, laboratory data shows WBC 26.7, platelets 568, sodium 126, potassium 5.5, BUN 43, creatinine 2 five eight, GFR 34, glucose 852, anion gap 26, acetone > 4.500, calcium 10.2 trending down to 8.4, troponin 31, blood pressure trending up to 134/63, heart rate 205 trending down to 116, temperature 98.5 F, O2 saturation 95% on oxygen. Patient was found to have diabetes with ketoacidosis, likely septic, hypoxic, life-threatening deterioration, and subsequently intubated. Chest x-ray revealing endotracheal tube tip remains low, proximally 0.2 cm above the level of the alexis, no evidence of acute cardiopulmonary process. Patient was started on IV antibiotic regimen vancomycin, on insulin drip, please see [facility] orders section in the computer. On my assessment, patient remains fully intubated, no diaphoresis, no diarrhea, no vomiting, no fever, no chills. Patient was admitted for further evaluation and medical management. Past Medical History Dementia, DM, HTN Past Surgical History BKA (LLE), RLE toe amputation Family History Reviewed, noncontributory to the management of this case. Past Social History The patient lives at home, no history smoking, alcohol or illicit drugs abuse on file. Review of Systems Constitutional: Yes: Weakness; No: Fever, Chills, Sweats, Malaise, Other Eyes: No: Pain, Vision change, Conjunctivae inflammation, Eyelid inflammation, Other, Redness ENT: No: Ear pain, Ear discharge, Nose pain, Nose discharge, Nose congestion, Mouth pain, Mouth swelling, Throat pain, Throat swelling, Other Respiratory: Shortness of breath; No: Cough, Dry, SOB with excertion, Wheezing, Hemoptysis, Pleuritic Pain, Sputum, Wheezing, Other Cardiovascular: Other (Hypotension); No: Chest Pain, Palpitations, Orthopnea, Paroxysmal Noc. Dyspnea, Edema, Lt Headedness Gastrointestinal: No: Nausea, Vomiting, Abdominal Pain, Diarrhea, Constipation, Melena, Hematochezia, Other Genitourinary: No Dysuria, No Frequency, No Incontinence, No Hematuria, No Ret ention, No Other Musculoskeletal: other (BKA (LLE), RLE toe amputation); No: neck pain, shoulder pain, arm pain, back pain, hand pain, leg pain, foot pain Skin: No: Rash, Lesions, Jaundice, Bruising, Other Neurological: No: Weakness, Numbness, Incoordination, Change in speech, Confusion, Seizures, Other Allergies: Coded Allergies: NO KNOWN ALLERGIES (Unverified , 05/30/25) Medications Current Medications Medications Dose Ordered Sig/Philip Route Start Time Stop Time Status Last Admin Dose Admin Norepinephrine Bitartrate 250 ml @ 3.75 mls/hr Q24H IV 06/18/25 14:45 06/18/25 14:45 3.75 MLS/HR Propofol 100 ml @ 1.95 mls/hr Q24H IV 06/18/25 14:45 06/18/25 17:39 1.95 MLS/HR Midazolam HCl 50 ml @ 1 mls/hr Q24H IV 06/18/25 14:45 06/18/25 14:45 1 MLS/HR Fentanyl Citrate 250 ml @ 2.5 mls/hr Q24H IV 06/18/25 14:45 06/18/25 14:45 2.5 MLS/HR Sodium Chloride 1,000 ml @ 500 mls/hr Q2H IV 06/18/25 17:00 06/18/25 20:59 06/18/25 17:00 500 MLS/HR Sodium Chloride 1,000 ml @ 250 mls/hr Q4H IV 06/18/25 21:00 06/18/25 22:59 Sodium Chloride 1,000 ml @ 150 mls/hr Q6H40M IV 06/18/25 23:00 Dextrose 50 ml UD PRN IV 06/18/25 17:00 Diagnostic Test (Pha) 1 strip Q90MIN 06/18/25 18:00 06/18/25 20:01 1 STRIP Insulin Glargine 15 units DAILY SC 06/19/25 10:00 Insulin Human (Reg)/Sodium Chloride 100 ml @ 0.5 mls/hr Q24H IV 06/18/25 20:15 UNV Exam Vital Signs Vital Signs Date Time Temp Pulse Resp B/P (MAP) Pulse Ox O2 Delivery O2 Flow Rate FiO2 06/18/25 20:21 103 20 125/71 (89) 100 40 06/18/25 16:00 Mechanical Ventilator+ 06/18/25 14:10 8 06/18/25 14:10 98.5 98.5 General Appearance: Other (Fully intubated) HEENT: Atraumatic, PERRLA, EOMI, Mucous membr. moist/pink Respiratory: Normal air movement, Other (On ventilator) Cardiovascular: Regular rate, Normal S1, Normal S2, No murmurs Abdominal: Normal bowel sounds, Soft, No tenderness, No hepatospenomegaly, No masses Extremities: No clubbing, No cyanosis, No edema, Normal pulses, No tenderness/swelling Skin: No rashes, No significant lesion Neuro: Other (Unobtainable) Psych/Mental Status: Other (Unobtainable) Labs/Xrays Labs Test 06/18/25 17:33 06/18/25 16:25 06/18/25 16:23 06/18/25 15:25 Range/Units POC Glucose > 600 *H 70-106 mg/dl Sodium Level 136 # 136-145 mmol/L Potassium Level 4.6 3.5-5.1 mmol/L Chloride Level 105 # 98-107 mmol/L Carbon Dioxide Level < 10 *L 20-31 mmol/L Anion Gap 21.17301 H 5-15 Blood Urea Nitrogen 47 H 9-23 mg/dL Creatinine 2.08 H 0.700-1.30 mg/dL Glomerular Filtration Rate Calc 34 >90 mL/min BUN/Creatinine Ratio 22.6 H 10.0-20.0 Serum Glucose 664 #*H 74-106 mg/dL Calcium Level 8.4 L 8.7-10.4 mg/dL Phosphorus Level 5.0 2.4-5.1 mg/dL Magnesium Level 2.5 1.6-2.6 mg/dL Troponin I High Sensitivity 55 *H </=54 ng/L Blood Gas Specimen Type Arterial Blood Gas Sample Site Left radial Blood Gas Patient Temperature 37.0 Arterial Blood Date Drawn [id number] Arterial Blood pH 7.052 *L 7.350-7.450 Arterial Blood Partial Pressure CO2 30.8 L 35.0-48.0 mmHg Arterial Blood Partial Pressure O2 440.9 *H 83.0-108.0 mmHg Arterial Blood HCO3 8.4 L 21.0-28.0 mmol/L Arterial Blood Oxygen Saturation 99.7 H 94.0-98.0 % Arterial Blood Base Excess -21.0 L -2.0-3.0 mmol/L Arterial Blood Oxyhemoglobin 98.7 H 94.0-98.0 % Arterial Blood Carboxyhemoglobin 0.4 L 0.5-1.5 % Arterial Blood Methemoglobin 0.6 0.0-1.5 % Vicente Test Modified Blood Gas Total Hemoglobin 15.50 13.5-17.5 g/dL Blood Gas Set Respiration Rate 20.0 Blood Gas Modality Vent - ac FiO2 % 100.0 Blood Gas Tidal Volume 400.0 Blood Gas PEEP or CPAP 5.0 Blood Gas Critical Value Read Back yes Blood Gas Notified Whom patrick arias md Blood Gas Notified Time [id number] Blood Gas Notified By steam finisher kat mccartney Lactic Acid Level 2.3 *H 0.4-2.0 mmol/L Test 06/18/25 13:37 06/18/25 13:09 Range/Units Urine Color Light-yellow Yellow Urine Clarity Clear Clear Urine pH 5.5 5.0-9.0 Urine Specific [place] 1.025 1.001-1.035 Urine Protein Trace H Negative Urine Ketones 2+ H Negative Urine Blood Trace H Negative /uL Urine Nitrite Negative Negative Urine Bilirubin Negative Negative Urine Urobilinogen Normal Negative mg/dL Urine Leukocyte Esterase Negative Negative /uL Urine RBC 1 0 - 3 /hpf Urine Microscopic WBC < 1 0-3 /HPF Urine Squamous Epithelial Cells None seen <5 /hpf Urine Bacteria Few H None Seen /hpf Urine Hyaline Casts Few 0 - 2 /lpf Urine Glucose 4+ H Normal mg/dL White Blood Count 26.7 H 4.4-10.8 10^3/uL Red Blood Count 4.27 L 4.5-5.90 10^6/uL Hemoglobin 14.6 13.5-17.5 g/dL Hematocrit 48.4 41.0-53.0 % Mean Corpuscular Volume 113.4 H 80.0-100.0 fL Mean Corpuscular Hemoglobin 34.2 H 28.0-32.0 pg Mean Corpuscular Hemoglobin Concent 30.2 L 32.0-36.0 g/dL Red Cell Distribution Width 15.9 H 11.8-14.3 % Platelet Count 568 H 140-450 10^3/uL Mean Platelet Volume 9.5 6.9-10.8 fL Neutrophils (%) (Auto) 37.0-80.0 % Lymphocytes (%) (Auto) 10.0-50.0 % Monocytes (%) (Auto) 0.0-12.0 % Basophils (%) (Auto) 0.0-2.0 % Neutrophils # (Auto) 1.6-8.6 10 ^3/uL Lymphocytes # (Auto) 0.4-5.4 10 ^3/uL Monocytes # (Auto) 0-1.3 10 ^3/uL Differential Total Cells Counted 100.0 100 Neutrophils % (Manual) 87 H 37.0-80.0 Band Neutrophils % (Manual) 4 Lymphocytes % (Manual) 2 L 10.0-50.0 Monocytes % (Manual) 6 0-12 Eosinophils % (Manual) 1 0-7 Basophils % (Manual) 0 0.0-2.0 Metamyelocytes % (manual) 0 Myelocytes % (Manual) 0 Promyelocytes % (Manual) 0 Blast Cells % (Manual) 0 Reactive Lymphocytes 0 Platelet Estimate Increased Hypochromasia (manual) Slight Anisocytosis (manual) Slight Macrocytosis Marked Beta-Hydroxybutyric Acid > 4.500 H < 0.4 mmol/L PATIENT: TED PRICE ACCT: [id number] UNIT: [id number] : 1955 LOC: ER ROOM / BED: / AGE / SEX: 70 / M ADM STATUS: REG ER SERVICE 1241 ORDERING PHYSICIAN: ROSY FUENTES MD PROCEDURE(s): CXRP - CHEST PORTABLE REASON: weakness ORDER NUMBER(s): [id number], ACCESSION NUMBER(s): [id number] EXAM: XY CHEST PORTABLE Indication: weakness Technique: Single frontal view of the chest was obtained Comparison: XY CHEST XRAY 1 VIEW on DOS: 06/04/25 FINDINGS: Lines and Tubes: None Lungs: No focal consolidation. Left upper extremity limits evaluation of the left lower thorax. Pleura: No effusion. No pneumothorax. Cardiomediastinal contours: Unremarkable Bones: No acute osseous abnormality. IMPRESSION: No acute cardiopulmonary disease. ORDERING PHYSICIAN: HUMBLE TOVAR DNP PROCEDURE(s): CXRP - CHEST PORTABLE REASON: retract ETT ORDER NUMBER(s): [id number], ACCESSION NUMBER(s): [id number] CHEST RADIOGRAPH Indication: retract ETT Technique: Single frontal view of the chest was obtained COMPARISON: XY CHEST XRAY 1 VIEW on DOS: 06/18/25, XY CHEST XRAY 1 VIEW on DOS: 06/18/25, XY CHEST PORTABLE on DOS: 06/18/25, XY CHEST XRAY 1 VIEW on DOS: 06/04/25 FINDINGS: Lines and Tubes: Endotracheal tube tip remains low, approximately 0.2 cm above the level of the alexis. Remaining lines and tubes unchanged. Lungs: Clear Pleura: No effusion. No pneumothorax. Cardiomediastinal contours: Unremarkable Bones: Unremarkable IMPRESSION: 1. Endotracheal tube tip remains low, approximately 0.2 cm above the level of the alexis. 2. Remaining lines and tubes unchanged. 3. No evidence of acute cardiopulmonary process. SEPSIS Sepsis Screen Date sepsis recognized/suspect: Jun 18, 2025 Time Sepsis recognized/suspect: 1707 Recent Procedure: Yes On Antibiotic Therapy: Yes Respiratory Rate >20: Yes Heart Rate >90: Yes Temp<36 C (96.8 F) or >38.3 C: No SBP <90 or MAP <65 mmHG: No New Acute Mental Status Change: Yes Is the patient on CPAP, BIPAP,: Yes Physician Orders Chest Portable (06/18/25 12:41) Blood Culture (06/18/25 12:54) Norepinephrine 8 Mg/250ml Kit (Levophed) (06/18/25 14:45) Propofol (Diprivan) (06/18/25 14:45) Midazolam Drip 50 Mg/50ml (Versed Drip 5 (06/18/25 14:45) Fentanyl Drip 2500mcg/250mlns (06/18/25 14:45) Rass Sedation Scale Q1HR (06/18/25 14:43) Ventilator Orders (06/18/25 14:55) Abg W/ Co-Ox (06/18/25 16:00) Respiratory Culture W/ Gs (06/18/25 14:55) Electrocardigram (06/18/25 15:01) Insert/Manage Urinary Catheter QSHIFT (06/18/25 15:24) Place Og Tube (06/18/25 15:24) Chest Xray 1 View (06/18/25 15:24) Insulin Drip Protocol (06/18/25 ) Sodium Chloride 0.9% (06/18/25 17:00) Sodium Chloride 0.9% (06/18/25 21:00) Sodium Chloride 0.9% (06/18/25 23:00) Dextrose 50% Syringe (06/18/25 17:00) Glucose Blood (Accu-Chek Comfort Curve T (06/18/25 18:00) Basic Metabolic Panel (06/18/25 22:47) Basic Metabolic Panel (06/19/25 04:47) Basic Metabolic Panel (06/19/25 10:47) Neurological Assessment (06/18/25 16:47) Vs/Hemodynamics .PER UNIT PROTOCOL (06/18/25 16:47) Insulin Lantus (Glargine) (Lantus) (06/19/25 10:00) Chest Xray 1 View (06/18/25 19:09) Insulin Drip 100 Unit/100ml (Myxredlin 1 (06/18/25 20:15) Zosyn Extended Infusion (06/18/25 22:00) Vancomycin (06/18/25 20:30) Calcium Ivpb (06/18/25 20:30) Vital Signs Date Time Temp Pulse Resp B/P (MAP) Pulse Ox O2 Delivery O2 Flow Rate FiO2 06/18/25 20:21 103 20 125/71 (89) 100 40 06/18/25 20:00 125/71 06/18/25 20:00 125/71 06/18/25 20:00 125/71 06/18/25 20:00 125/71 06/18/25 18:15 116 28 175/95 (121) 100 50 06/18/25 18:12 177/97 06/18/25 17:39 150/75 06/18/25 17:12 153/63 06/18/25 16:13 120 20 134/22 (59) 100 100 06/18/25 16:00 118 21 171/85 (113) 99 06/18/25 16:00 119 06/18/25 16:00 118 21 100 Mechanical Ventilator+ 100 100 06/18/25 15:45 137/77 06/18/25 15:35 124 20 130/75 (93) 100 06/18/25 15:20 126 20 131/77 (95) 100 06/18/25 15:16 125 20 104/60 100 100 06/18/25 15:05 125 20 123/73 (90) 100 06/18/25 15:00 124 20 120/72 (88) 100 06/18/25 14:50 126 18 104/60 (75) 95 06/18/25 14:45 104/60 06/18/25 14:45 148/75 06/18/25 14:45 148/75 06/18/25 14:43 125 20 104/60 (75) 100 100 06/18/25 14:39 104/63 06/18/25 14:10 184 20 98 Simple Mask* 8 60 06/18/25 14:10 98.5 184 20 105/90 (95) 95 98.5 06/18/25 14:09 209 29 93 Simple Mask* 10 99 06/18/25 13:50 97.9 194 22 161/137 (145) 98 97.9 06/18/25 13:31 190 06/18/25 13:29 205 Laboratory Tests Test 06/18/25 12:50 06/18/25 13:09 06/18/25 15:25 Lactic Acid Level 3.6 mmol/L (0.4-2.0) *H 2.3 mmol/L (0.4-2.0) *H White Blood Count 26.7 10^3/uL (4.4-10.8) H Medications Medications Dose Ordered Sig/Philip Route Start Time Stop Time Status Last Admin Dose Admin Diagnostic Test (Pha) 1 strip Q90MIN 06/18/25 18:00 06/18/25 20:01 1 STRIP Etomidate 20 mg ONCE ONCE IV 06/18/25 14:15 06/18/25 14:34 DC 06/18/25 14:39 20 MG Fentanyl Citrate 250 ml @ 2.5 mls/hr Q24H IV 06/18/25 14:45 06/18/25 14:45 2.5 MLS/HR Insulin Glargine 15 units ONCE ONCE SC 06/18/25 17:00 06/18/25 17:01 DC 06/18/25 17:00 15 UNITS Insulin Human (Reg)/Sodium Chloride 100 ml @ 0.5 mls/hr Q24H IV 06/18/25 17:00 06/18/25 20:11 DC 06/18/25 18:04 0.5 MLS/HR Midazolam HCl 50 ml @ 1 mls/hr Q24H IV 06/18/25 14:45 06/18/25 14:45 1 MLS/HR Norepinephrine Bitartrate 250 ml @ 3.75 mls/hr Q24H IV 06/18/25 14:45 06/18/25 14:45 3.75 MLS/HR Propofol 100 ml @ 1.95 mls/hr Q24H IV 06/18/25 14:45 06/18/25 17:39 1.95 MLS/HR Rocuronium [place] 100 mg ONCE ONCE IV 06/18/25 14:15 06/18/25 14:34 DC 06/18/25 14:39 100 MG Sodium Chloride 1,000 ml @ 500 mls/hr Q2H IV 06/18/25 17:00 06/18/25 20:59 06/18/25 17:00 500 MLS/HR Sodium Chloride 1,000 ml @ 1,000 mls/hr Q1H ONCE IV 06/18/25 12:45 06/18/25 14:34 DC 06/18/25 13:10 1,000 MLS/HR Assessment/Plan Assessment/Plan Diabetes with ketoacidosis Sepsis, unspecified organism Severe sepsis with septic shock Metabolic encephalopathy Generalized weakness Acute metabolic encephalopathy Type 2 diabetes mellitus with ketoacidosis with coma Plan 1. Admit to intensive care unit 2. Breathing treatment 3. Pain control management 4. IV antibiotic management 5. Management of fluids and electrolytes 6. Consultation for Nephrology/pulmonology 7. Diagnostic test chest x-ray 8. DVT prophylaxis-on SCDs 9. Repeat labs CBC, CMP in a.m. 10. Home medication reviewed and reconciled 11. Continue with current medical management 12. Treatment plan discussed with patient and RN. Patient is fully intubated Plan discussed with: Patient, Other (RN) My Orders Orders - HUMBLE TOVAR DNP Procedure Category Date Status Time Zosyn Extended PHA 06/18/25 Verified Infusion 22:00 Vancomycin PHA 06/18/25 Verified 20:30 Calcium Ivpb PHA 06/18/25 Verified 20:30 Problem List: (1) Diabetes with ketoacidosis (2) Sepsis, unspecified organism (3) Severe sepsis with septic shock (4) Metabolic encephalopathy (5) Generalized weakness (6) Acute metabolic encephalopathy (7) Type 2 diabetes mellitus with hyperglycemia Date of Service: Jun 18, 2025 Billing Provider: HUMBLE TOVAR DNP Common Visit Codes: [id number] INP/OBS CARE (HIGH), [id number] CARE- EACH +30MIN HUMBLE TOVAR DNP Jun 18, 2025 20:37
[2025-06-18] MEDS: CALCIUM GLUC 1,000mg/50ml-NS 50 ML IV ONE (22:47)
[2025-06-18 23:15] LABS: Potassium 3.7 mmol/L (3.5-5.1); Sodium 141 mmol/L (136-145)
[2025-06-18 23:16] LABS: Anion Gap 17 (5-15)
[2025-06-18 23:17] LABS: Calcium 8.9 mg/dL (8.7-10.4)
[2025-06-18 23:22] LABS: BUN/Creatinine Ratio 23.3 (10.0-20.0)
[2025-06-18] MEDS: PIPERACILLIN-TAZOB 3.375GM 100 ML IV ONE (23:27)
[2025-06-18 23:30] LABS: Blood Urea Nitrogen 41 mg/dL (9-23); Carbon Dioxide 14 mmol/L (20-31); Chloride 110 mmol/L (98-107)
[2025-06-18 23:34] LABS: Glucose 460 mg/dL (74-106)
[2025-06-19] VITALS (42 sets, daily range): BP systolic 110–154; BP diastolic 51–74; PULSE 90–113; RESP 18–30; O2SAT 97–100
--- NOTE | 2025-06-19 02:23 | DVH ---
CHEST RADIOGRAPH Indication: retract ETT Technique: Single frontal view of the chest was obtained COMPARISON: XY CHEST XRAY 1 VIEW on DOS: 06/18/25, XY CHEST XRAY 1 VIEW on DOS: 06/18/25, XY CHEST PORTAB LE on DOS: 06/18/25, XY CHEST XRAY 1 VIEW on DOS: 06/04/25 FINDINGS: Lines and Tubes: Endotracheal tube tip remains low, approximately 0.2 cm above the level of the irvin a. Remaining lines and tubes unchanged. Lungs: Clear Pleura: No effusion. No pneumothorax. Cardiomediastinal contours: Unremarkable Bones: Unremarkable IMPRESSION: 1. Endotracheal tube tip remains low, approximately 0.2 cm above the level of the alexis. 2. Remaining lines and tubes unchanged. 3. No evidence of acute cardiopulmonary process.
[2025-06-19 04:41] LABS: Hematocrit 33.9 % (41.0-53.0); Hemoglobin 11.6 g/dL (13.5-17.5); Mean Corpuscular Hemoglobin 33.7 pg (28.0-32.0); Mean Corpuscular Volume 99.0 fL (80.0-100.0); Nucleated Red Blood Cells % 0.0 %
[2025-06-19 04:55] LABS: Anion Gap 12 (5-15); BUN/Creatinine Ratio 23.7 (10.0-20.0); Sodium 143 mmol/L (136-145); Total Protein 6.0 g/dL (5.7-8.2)
[2025-06-19 05:06] LABS: Chloride 114 mmol/L (98-107); Potassium 2.7 mmol/L (3.5-5.1)
[2025-06-19 05:07] LABS: Alanine Aminotransferase < 9 U/L (7-40); Albumin 3.0 g/dL (3.2-4.8); Alkaline Phosphatase 182 U/L (46-116); Bilirubin, Total 0.3 mg/dL (0.2-1.0); Blood Urea Nitrogen 31 mg/dL (9-23); Calcium 8.6 mg/dL (8.7-10.4); Carbon Dioxide 17 mmol/L (20-31); Glucose 198 mg/dL (74-106)
[2025-06-19] MEDS: PIPERACILLIN-TAZOB 3.375GM 100 ML IV SCH (05:46)
[2025-06-19] MEDS: POTASSIUM CHL 20MEQ/100ML 100 ML IV SCH (06:44)
[2025-06-19] MEDS: D5W/SOD CHL 0.45%/KCL 20MEQ 1,000 ML IV SCH (08:30)
[2025-06-19] MEDS: INSULIN DRIP 100 UNIT/100ML 100 ML IV SCH (08:30)
--- NOTE | 2025-06-19 09:07 | DVHINCON2 ---
Date of service: Jun 19, 2025 Referring Physician Sonja Vergara NP Reason for Consultation ELEVATED CREATININE History of Present Illness This is a 70-year-old male with history of type 2 diabetes, hypertension, dementia brought into the emergency room because of generalized weakness. Patient's blood sugar was noted to be elevated in the field. Also noted to be hypotensive. He was given1 L of fluid bolus by the paramedics. Initial evaluation in the emergency room noted that the [place] [address]. Also noted to be in DKA. Started on insulin drip. He had to be intubated for respiratory failure. Started on pressors. Nephrology consulted for elevated creatinine. Patient seen and examined at bedside. Patient is intubated and sedated. On 30% FiO2. Insulin drip has been discontinued. Patient is on Levophed drip. 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 Family History: Diabetes mellitus G8 MOTHER G8 FATHER Hypertension G8 MOTHER G8 FATHER Family History As per records no significant family history Social History Lives alone. Allergies: Coded Allergies: NO KNOWN ALLERGIES (Unverified , 05/30/25) Home Meds Active Scripts Hydrocodone-Acetaminophen (Hydrocodone/Acetaminophen 5-325 mg) 1 Tab Tab, 1 TAB PO TIDP PRN for 7 Days, #21 TAB 0 Refills Prov:ELIAS BOB MD 06/09/25 Cephalexin (KEFLEX CAPSULE) 250 Mg Cp, 2 CAP PO BID for 14 Days, #56 CAP 0 Refills Prov:ELIAS BOB MD 06/09/25 Current Medications Current Medications Medications (Trade) Dose Ordered Sig/Philip Route PRN Reason Start Time Stop Time Status Last Admin Norepinephrine Bitartrate 250 ml @ 3.75 mls/hr Q24H IV 06/18/25 14:45 06/18/25 14:45 Propofol 100 ml @ 1.95 mls/hr Q24H IV 06/18/25 14:45 06/18/25 17:39 Midazolam HCl 50 ml @ 1 mls/hr Q24H IV 06/18/25 14:45 06/19/25 05:42 Fentanyl Citrate 250 ml @ 2.5 mls/hr Q24H IV 06/18/25 14:45 06/18/25 14:45 Sodium Chloride 1,000 ml @ 500 mls/hr Q2H IV 06/18/25 17:00 06/18/25 20:59 DC 06/18/25 21:19 Sodium Chloride 1,000 ml @ 250 mls/hr Q4H IV 06/18/25 21:00 06/18/25 22:59 DC Sodium Chloride 1,000 ml @ 150 mls/hr Q6H40M IV 06/18/25 23:00 06/19/25 05:43 Insulin Human (Reg)/Sodium Chloride 100 ml @ 0.5 mls/hr Q24H IV 06/18/25 17:00 06/18/25 20:11 DC 06/18/25 18:04 Dextrose 50 ml UD PRN IV SEE CURRENT ALGORITHM or SCALE 06/18/25 17:00 Diagnostic Test (Pha) (Accu-Chek Comfort Curve T) 1 strip Q90MIN 06/18/25 18:00 06/19/25 07:30 Insulin Glargine (Lantus) 15 units DAILY SC 06/19/25 10:00 Insulin Human (Reg)/Sodium Chloride 100 ml @ 0.5 mls/hr Q24H IV 06/18/25 20:15 06/18/25 21:48 DC 06/18/25 20:02 Piperacillin Sod/ Tazobactam Sod 100 ml @ 25 mls/hr Q8HR IV 06/19/25 06:00 06/19/25 05:46 Vancomycin HCl 0 ml @ 0 mls/hr UD IV 06/18/25 20:30 UNV Ondansetron HCl (Zofran) 4 mg Q4HP PRN IV NAUSEA / VOMITING 06/18/25 20:30 Nitroglycerin (Ntrostat Sublingual) 0.4 mg Q5MINP PRN SL FOR CHEST PAIN 06/18/25 20:30 Morphine Sulfate 2 mg Q30M PRN IV FOR CHEST PAIN 06/18/25 20:30 Insulin Human (Reg)/Sodium Chloride 100 ml @ 1 mls/hr Q24H IV 06/18/25 21:45 06/19/25 08:33 DC 06/19/25 02:08 Potassium Chloride 100 ml @ 50 mls/hr Q2H IV 06/19/25 06:30 06/19/25 12:29 06/19/25 06:44 Potassium Chloride/Dextrose/ Sod Cl 1,000 ml @ 150 mls/hr Q6H40M IV 06/19/25 08:30 Insulin Human (Reg)/Sodium Chloride 100 ml @ 0.5 mls/hr Q24H IV 06/19/25 08:30 Review of Systems Not obtained as the patient is intubated. 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 Right foot in bandages. Labs/Diagnostic Data Labs Test 06/19/25 08:14 06/19/25 03:24 06/18/25 16:25 06/18/25 16:23 Range/Units POC Glucose 75 70-106 mg/dl White Blood Count 19.4 #H 4.4-10.8 10^3/uL Red Blood Count 3.43 L 4.5-5.90 10^6/uL Hemoglobin 11.6 #L 13.5-17.5 g/dL Hematocrit 33.9 #L 41.0-53.0 % Mean Corpuscular Volume 99.0 # 80.0-100.0 fL Mean Corpuscular Hemoglobin 33.7 H 28.0-32.0 pg Mean Corpuscular Hemoglobin Concent 34.1 32.0-36.0 g/dL Red Cell Distribution Width 13.4 11.8-14.3 % Platelet Count 418 140-450 10^3/uL Mean Platelet Volume 8.4 6.9-10.8 fL Neutrophils (%) (Auto) 86.1 H 37.0-80.0 % Lymphocytes (%) (Auto) 7.5 L 10.0-50.0 % Monocytes (%) (Auto) 6.1 0.0-12.0 % Eosinophils (%) (Auto) 0.1 0.0-7.0 % Basophils (%) (Auto) 0.2 0.0-2.0 % Neutrophils # (Auto) 16.7 H 1.6-8.6 10 ^3/uL Lymphocytes # (Auto) 1.5 0.4-5.4 10 ^3/uL Monocytes # (Auto) 1.2 0-1.3 10 ^3/uL Eosinophils # (Auto) 0 0-0.8 10 ^3/uL Basophils # (Auto) 0 0-0.2 10 ^3/uL Nucleated Red Blood Cells 0.0 % Sodium Level 143 136-145 mmol/L Potassium Level 2.7 L 3.5-5.1 mmol/L Chloride Level 114 H 98-107 mmol/L Carbon Dioxide Level 17 L 20-31 mmol/L Anion Gap 12 5-15 Blood Urea Nitrogen 31 #H 9-23 mg/dL Creatinine 1.31 H 0.700-1.30 mg/dL Glomerular Filtration Rate Calc 59 >90 mL/min BUN/Creatinine Ratio 23.7 H 10.0-20.0 Serum Glucose 198 #H 74-106 mg/dL Calcium Level 8.6 L 8.7-10.4 mg/dL Total Bilirubin 0.3 0.2-1.0 mg/dL Aspartate Amino Transferase (AST) 12 L 13-40 U/L Alanine Aminotransferase (ALT) < 9 7-40 U/L Alkaline Phosphatase 182 H 46-116 U/L Total Protein 6.0 5.7-8.2 g/dL Albumin 3.0 L 3.2-4.8 g/dL Random Vancomycin Level 29.6 H 5-10 ug/mL Phosphorus Level 5.0 2.4-5.1 mg/dL Magnesium Level 2.5 1.6-2.6 mg/dL Troponin I High Sensitivity 55 *H </=54 ng/L Blood Gas Specimen Type Arterial Blood Gas Sample Site Left radial Blood Gas Patient Temperature 37.0 Arterial Blood Date Drawn [id number] Arterial Blood pH 7.052 *L 7.350-7.450 Arterial Blood Partial Pressure CO2 30.8 L 35.0-48.0 mmHg Arterial Blood Partial Pressure O2 440.9 *H 83.0-108.0 mmHg Arterial Blood HCO3 8.4 L 21.0-28.0 mmol/L Arterial Blood Oxygen Saturation 99.7 H 94.0-98.0 % Arterial Blood Base Excess -21.0 L -2.0-3.0 mmol/L Arterial Blood Oxyhemoglobin 98.7 H 94.0-98.0 % Arterial Blood Carboxyhemoglobin 0.4 L 0.5-1.5 % Arterial Blood Methemoglobin 0.6 0.0-1.5 % Vicente Test Modified Blood Gas Total Hemoglobin 15.50 13.5-17.5 g/dL Blood Gas Set Respiration Rate 20.0 Blood Gas Modality Vent - ac FiO2 % 100.0 Blood Gas Tidal Volume 400.0 Blood Gas PEEP or CPAP 5.0 Blood Gas Critical Value Read Back yes Blood Gas Notified Whom patrick arias md Blood Gas Notified Time [id number] Blood Gas Notified By buffing wheel presser t sherrill Test 06/18/25 15:25 06/18/25 13:37 06/18/25 13:09 Range/Units Lactic Acid Level 2.3 *H 0.4-2.0 mmol/L Urine Color Light-yellow Yellow Urine Clarity Clear Clear Urine pH 5.5 5.0-9.0 Urine Specific [place] 1.025 1.001-1.035 Urine Protein Trace H Negative Urine Ketones 2+ H Negative Urine Blood Trace H Negative /uL Urine Nitrite Negative Negative Urine Bilirubin Negative Negative Urine Urobilinogen Normal Negative mg/dL Urine Leukocyte Esterase Negative Negative /uL Urine RBC 1 0 - 3 /hpf Urine Microscopic WBC < 1 0-3 /HPF Urine Squamous Epithelial Cells None seen <5 /hpf Urine Bacteria Few H None Seen /hpf Urine Hyaline Casts Few 0 - 2 /lpf Urine Glucose 4+ H Normal mg/dL Differential Total Cells Counted 100.0 100 Neutrophils % (Manual) 87 H 37.0-80.0 Band Neutrophils % (Manual) 4 Lymphocytes % (Manual) 2 L 10.0-50.0 Monocytes % (Manual) 6 0-12 Eosinophils % (Manual) 1 0-7 Basophils % (Manual) 0 0.0-2.0 Metamyelocytes % (manual) 0 Myelocytes % (Manual) 0 Promyelocytes % (Manual) 0 Blast Cells % (Manual) 0 Reactive Lymphocytes 0 Platelet Estimate Increased Hypochromasia (manual) Slight Anisocytosis (manual) Slight Macrocytosis Marked Beta-Hydroxybutyric Acid > 4.500 H < 0.4 mmol/L Assessment Acute kidney injury secondary to osmotic diuresis due to hyperglycemia Acute hypoxic respiratory failure Shock probably secondary to sepsis Diabetic ketoacidosis High anion gap metabolic acidosis secondary to DKA Hypokalemia Plan/Recommendation GFR with improvement. Continue with aggressive hydration. Started on D5 half NS with 20 mEq of potassium at 150 mL/hour. Insulin drip has been discontinued. Continue with broad-spectrum antibiotics. Potassium replacement Labs in a.m.. Follow up on cultures. Check urine PCR Plan discussed with: Other ALEX WIGGINS MD Jun 19, 2025 09:07
[2025-06-19] MEDS: INSULIN LANTUS (GLARGINE) 1 /0.01ml (100units/ml) SC SCH (12:27)
[2025-06-19 13:19] LABS: Potassium 3.8 mmol/L (3.5-5.1); Sodium 142 mmol/L (136-145)
[2025-06-19 13:20] LABS: Anion Gap 9 (5-15)
[2025-06-19 13:25] LABS: BUN/Creatinine Ratio 21.1 (10.0-20.0)
[2025-06-19 13:27] LABS: Blood Urea Nitrogen 27 mg/dL (9-23); Calcium 8.2 mg/dL (8.7-10.4); Carbon Dioxide 17 mmol/L (20-31); Chloride 116 mmol/L (98-107); Glucose 232 mg/dL (74-106)
--- NOTE | 2025-06-19 14:13 | DVHPN2 ---
Reviewed: Care Plan, H&P, Labs, Medications, Previous Orders, Radiology Changes from previous H/P or p: No Changes Eyes: No Pain, No Vision change, No Conjunctivae inflammation, No Eyelid inflammation, No Other, No Redness ENT: No Ear pain, No Ear discharge, No Nose pain, No Nose discharge, No Nose congestion, No Mouth pain, No Mouth swelling, No Throat pain, No Throat swelling, No Other Cardiovascular: No Chest Pain, No Palpitations, No Orthopnea, No Paroxysmal Noc. Dyspnea, No Edema, No Lt Headedness; Other (Hypotension) Respiratory: No Cough, No Dry; Shortness of breath; No SOB with excertion, No Wheezing, No Hemoptysis, No Pleuritic Pain, No Sputum, No Other Gastrointestinal: No Nausea, No Vomiting, No Abdominal Pain, No Diarrhea, No Constipation, No Melena, No Hematochezia, No Other Genitourinary: No Dysuria, No Frequency, No Incontinence, No Hematuria, No Retention, No Other Musculoskeletal: other (BKA (LLE), RLE toe amputation); No neck pain, No shoulder pain, No arm pain, No back pain, No hand pain, No leg pain, No foot pain Skin: No Rash, No Lesions, No Jaundice, No Bruising, No Other Objective Vitals Vital Signs Date Time Temp Pulse Resp B/P (MAP) Pulse Ox O2 Delivery O2 Flow Rate FiO2 06/19/25 13:00 97.0 104 24 126/59 (81) 100 97.0 06/19/25 12:40 30 06/19/25 07:30 Mechanical Ventilator+ 06/18/25 14:10 8 Intake/Output Intake and Output 06/19/25 07:00 Intake Total 4358.55 ml Output Total 1200 ml Balance 3158.55 ml Intake Oral 0 ml IV Total 4358.55 ml Output Urine Total 1200 ml Medications Current Medications Medications Dose Ordered Sig/Philip Route Start Time Stop Time Status Last Admin Dose Admin Norepinephrine Bitartrate 250 ml @ 3.75 mls/hr Q24H IV 06/18/25 14:45 06/18/25 14:45 3.75 MLS/HR Propofol 100 ml @ 1.95 mls/hr Q24H IV 06/18/25 14:45 06/18/25 17:39 1.95 MLS/HR Midazolam HCl 50 ml @ 1 mls/hr Q24H IV 06/18/25 14:45 06/19/25 05:42 3 MLS/HR Fentanyl Citrate 250 ml @ 2.5 mls/hr Q24H IV 06/18/25 14:45 06/18/25 14:45 2.5 MLS/HR Sodium Chloride 1,000 ml @ 150 mls/hr Q6H40M IV 06/18/25 23:00 06/19/25 12:28 150 MLS/HR Dextrose 50 ml UD PRN IV 06/18/25 17:00 Diagnostic Test (Pha) 1 strip Q90MIN 06/18/25 18:00 06/19/25 12:00 1 STRIP Insulin Glargine 15 units DAILY SC 06/19/25 10:00 06/19/25 12:27 15 UNITS Piperacillin Sod/ Tazobactam Sod 100 ml @ 25 mls/hr Q8HR IV 06/19/25 06:00 06/19/25 05:46 25 MLS/HR Vancomycin HCl 0 ml @ 0 mls/hr UD IV 06/18/25 20:30 Ondansetron HCl 4 mg Q4HP PRN IV 06/18/25 20:30 Nitroglycerin 0.4 mg Q5MINP PRN SL 06/18/25 20:30 Morphine Sulfate 2 mg Q30M PRN IV 06/18/25 20:30 Potassium Chloride/Dextrose/ Sod Cl 1,000 ml @ 150 mls/hr Q6H40M IV 06/19/25 08:30 06/19/25 08:30 150 MLS/HR Insulin Human (Reg)/Sodium Chloride 100 ml @ 0.5 mls/hr Q24H IV 06/19/25 08:30 Laboratory Results Laboratory Tests 06/19/25 03:24 06/19/25 12:47 Chemistry Test 06/18/25 16:25 06/18/25 22:45 06/19/25 03:24 06/19/25 12:47 Calcium Level 8.4 mg/dL (8.7-10.4) L 8.9 mg/dL (8.7-10.4) 8.6 mg/dL (8.7-10.4) L 8.2 mg/dL (8.7-10.4) L Magnesium Level 2.5 mg/dL (1.6-2.6) Phosphorus Level 5.0 mg/dL (2.4-5.1) Albumin 3.0 g/dL (3.2-4.8) L Total Protein 6.0 g/dL (5.7-8.2) LFT Test 06/19/25 03:24 Alanine Aminotransferase (ALT) < 9 U/L (7-40) Alkaline Phosphatase 182 U/L (46-116) H Aspartate Amino Transferase (AST) 12 U/L (13-40) L Total Bilirubin 0.3 mg/dL (0.2-1.0) Urinalysis Test 06/18/25 13:37 Urine Color Light-yellow (Yellow) Urine Clarity Clear (Clear) Urine pH 5.5 (5.0-9.0) Urine Specific [place] 1.025 (1.001-1.035) Urine Protein Trace (Negative) H Urine Ketones 2+ (Negative) H Urine Blood Trace /uL (Negative) H Urine Nitrite Negative (Negative) Urine Bilirubin Negative (Negative) Urine Urobilinogen Normal mg/dL (Negative) Urine Leukocyte Esterase Negative /uL (Negative) Urine RBC 1 /hpf (0 - 3) Urine Microscopic WBC < 1 /HPF (0-3) Urine Squamous Epithelial Cells None seen /hpf (<5) Urine Bacteria Few /hpf (None Seen) H Urine Hyaline Casts Few /lpf (0 - 2) Urine Glucose 4+ mg/dL (Normal) H Blood Gas Results Test 06/18/25 16:23 Arterial Blood pH 7.052 (7.350-7.450) FiO2 % 100.0 Microbiology Microbiology Date/Time Source Procedure Growth Status 06/18/25 15:04 Sputum Gram Stain Pending Resulted 06/18/25 15:04 Sputum Respiratory Culture - Preliminary Resulted 06/18/25 13:09 Blood Blood Culture - Preliminary NO GROWTH AFTER 24 HOURS OF INCUBATION. Resulted Labs and/or images reviewed: Labs reviewed by me, Image(s) reviewed by me Assessment/Plan Assessment/Plan Acute hypoxic respiratory failure status post intubated: Continue pressors and sedation, consult for pulmonology Dr. España Septic shock secondary to pneumonia Diabetic ketoacidosis with coma: Insulin drip Acute community-acquired pneumonia Gram-positive versus Gram-negative: Vancomycin Zosyn Acute metabolic encephalopathy Acute generalized weakness Uncontrolled diabetes Dementia Hypertension Patient is hospice revoked Time spent 70 minutes Advanced care planning time is 20 minutes Patient is full code Blood cultures negative Denisa test pending Rapid flu test pending Plan discussed with: Patient My Orders Orders - LAURA MATHIS MD Procedure Category Date Status Time Covid19 Antigen Jodi LAB 06/19/25 Logged Rapid Influenza A&B LAB 06/19/25 Logged 14:09 Date of Service: Jun 19, 2025 Billing Provider: LAURA MATHIS MD Common Visit Codes: [id number] CARE 30-74 MIN LAURA MATHIS MD Jun 19, 2025 14:13
--- NOTE | 2025-06-19 19:26 | ECG ---
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
[2025-06-19] MEDS: ACCU-CHEK COMFORT CURVE STRIP VI SCH (20:02)
[2025-06-19] MEDS: InsuLIN REG 1unit/0.01ml Soln (100units/ml) SC SCH (20:08)
[2025-06-19 22:39] LABS: Potassium 4.2 mmol/L (3.5-5.1); Sodium 139 mmol/L (136-145)
[2025-06-19 22:40] LABS: Anion Gap 9 (5-15)
[2025-06-19 22:42] LABS: Calcium 8.0 mg/dL (8.7-10.4); Carbon Dioxide 14 mmol/L (20-31); Chloride 116 mmol/L (98-107)
[2025-06-19 22:45] LABS: BUN/Creatinine Ratio 13.0 (10.0-20.0); Blood Urea Nitrogen 17 mg/dL (9-23)
[2025-06-19 23:16] LABS: Glucose 409 mg/dL (74-106)
[2025-06-20] VITALS (14 sets, daily range): BP systolic 100–124; BP diastolic 43–70; PULSE 78–101; RESP 18–26; O2SAT 97–100
[2025-06-20] MEDS: SODIUM CHLORIDE 0.9% 1,000 ML IV SCH (00:13)
[2025-06-20] MEDS: CALCIUM GLUC 1,000mg/50ml-NS 50 ML IV ONE (00:15)
[2025-06-20 03:45] LABS: Hematocrit 28.6 % (41.0-53.0); Hemoglobin 9.9 g/dL (13.5-17.5); Mean Corpuscular Hemoglobin 33.9 pg (28.0-32.0); Mean Corpuscular Volume 97.6 fL (80.0-100.0); Nucleated Red Blood Cells % 0.0 %
[2025-06-20 04:53] LABS: Base Excess -7.6 mmol/L (-2.0-3.0)
[2025-06-20] MEDS: DEXTROSE (50%) 50ML SYRG IV PRN (07:02)
[2025-06-20 07:36] LABS: Base Excess -7.6 mmol/L (-2.0-3.0)
[2025-06-20 08:58] LABS: COVID19 ANTIGEN SOFIA FIA POSITIVE (NEGATIVE)
--- NOTE | 2025-06-20 13:09 | DVHPN2 ---
Reviewed: Care Plan, H&P, Labs, Medications, Previous Orders, Radiology Changes from previous H/P or p: No Changes Eyes: No Pain, No Vision change, No Conjunctivae inflammation, No Eyelid inflammation, No Other, No Redness ENT: No Ear pain, No Ear discharge, No Nose pain, No Nose discharge, No Nose congestion, No Mouth pain, No Mouth swelling, No Throat pain, No Throat swelling, No Other Cardiovascular: No Chest Pain, No Palpitations, No Orthopnea, No Paroxysmal Noc. Dyspnea, No Edema, No Lt Headedness; Other (Hypotension) Respiratory: No Cough, No Dry; Shortness of breath; No SOB with excertion, No Wheezing, No Hemoptysis, No Pleuritic Pain, No Sputum, No Other Gastrointestinal: No Nausea, No Vomiting, No Abdominal Pain, No Diarrhea, No Constipation, No Melena, No Hematochezia, No Other Genitourinary: No Dysuria, No Frequency, No Incontinence, No Hematuria, No Retention, No Other Musculoskeletal: other (BKA (LLE), RLE toe amputation); No neck pain, No shoulder pain, No arm pain, No back pain, No hand pain, No leg pain, No foot pain Skin: No Rash, No Lesions, No Jaundice, No Bruising, No Other Objective Vitals Vital Signs Date Time Temp Pulse Resp B/P (MAP) Pulse Ox O2 Delivery O2 Flow Rate FiO2 06/20/25 12:36 98 06/20/25 12:10 20 100/51 (67) 99 30 06/20/25 09:45 100.2 100.2 06/20/25 07:15 Mechanical Ventilator+ 06/18/25 14:10 8 Intake/Output Intake and Output 06/20/25 07:00 Intake Total 5826.90 ml Output Total 2600 ml Balance 3226.90 ml IV Total 5826.90 ml Output Urine Total 2600 ml Medications Current Medications Medications Dose Ordered Sig/Philip Route Start Time Stop Time Status Last Admin Dose Admin Norepinephrine Bitartrate 250 ml @ 3.75 mls/hr Q24H IV 06/18/25 14:45 06/18/25 14:45 3.75 MLS/HR Propofol 100 ml @ 1.95 mls/hr Q24H IV 06/18/25 14:45 06/19/25 14:45 5.85 MLS/HR Midazolam HCl 50 ml @ 1 mls/hr Q24H IV 06/18/25 14:45 06/20/25 11:16 5 MLS/HR Fentanyl Citrate 250 ml @ 2.5 mls/hr Q24H IV 06/18/25 14:45 06/19/25 14:45 7.5 MLS/HR Dextrose 50 ml UD PRN IV 06/18/25 17:00 Cancel Insulin Glargine 15 units DAILY SC 06/19/25 10:00 06/20/25 10:23 15 UNITS Piperacillin Sod/ Tazobactam Sod 100 ml @ 25 mls/hr Q8HR IV 06/19/25 06:00 06/20/25 06:10 25 MLS/HR Vancomycin HCl 0 ml @ 0 mls/hr UD IV 06/18/25 20:30 Ondansetron HCl 4 mg Q4HP PRN IV 06/18/25 20:30 Nitroglycerin 0.4 mg Q5MINP PRN SL 06/18/25 20:30 Morphine Sulfate 2 mg Q30M PRN IV 06/18/25 20:30 Insulin Human (Reg)/Sodium Chloride 100 ml @ 0.5 mls/hr Q24H IV 06/19/25 08:30 Diagnostic Test (Pha) 1 strip IQ4HR 06/19/25 20:00 06/20/25 12:00 1 STRIP Insulin Human Regular IQ4HR SC 06/19/25 20:00 06/19/25 23:43 20 UNITS Dextrose 50 ml UD PRN IV 06/19/25 16:15 06/20/25 07:02 50 ML Sodium Chloride 1,000 ml @ 125 mls/hr Q8H IV 06/20/25 00:15 06/20/25 08:15 125 MLS/HR Laboratory Results Laboratory Tests 06/19/25 22:27 06/20/25 03:30 Chemistry Test 06/19/25 22:27 Calcium Level 8.0 mg/dL (8.7-10.4) L Urinalysis Test 06/18/25 13:37 Urine Color Light-yellow (Yellow) Urine Clarity Clear (Clear) Urine pH 5.5 (5.0-9.0) Urine Specific [place] 1.025 (1.001-1.035) Urine Protein Trace (Negative) H Urine Ketones 2+ (Negative) H Urine Blood Trace /uL (Negative) H Urine Nitrite Negative (Negative) Urine Bilirubin Negative (Negative) Urine Urobilinogen Normal mg/dL (Negative) Urine Leukocyte Esterase Negative /uL (Negative) Urine RBC 1 /hpf (0 - 3) Urine Microscopic WBC < 1 /HPF (0-3) Urine Squamous Epithelial Cells None seen /hpf (<5) Urine Bacteria Few /hpf (None Seen) H Urine Hyaline Casts Few /lpf (0 - 2) Urine Glucose 4+ mg/dL (Normal) H Blood Gas Results Test 06/20/25 07:30 Arterial Blood pH 7.398 (7.350-7.450) FiO2 % 30.0 Microbiology Microbiology Date/Time Source Procedure Growth Status 06/18/25 15:04 Sputum Gram Stain Pending Resulted 06/18/25 15:04 Sputum Respiratory Culture - Preliminary Resulted 06/18/25 13:09 Blood Blood Culture - Preliminary NO GROWTH AFTER 24 HOURS OF INCUBATION. Resulted Labs and/or images reviewed: Labs reviewed by me, Image(s) reviewed by me Assessment/Plan Assessment/Plan Acute hypoxic respiratory failure status post intubated: Continue pressors and sedation, consult for pulmonology Dr. España Septic shock secondary to pneumonia Diabetic ketoacidosis with coma: Insulin drip Acute community-acquired pneumonia Gram-positive versus Gram-negative: Blood Cultures negative respiratory cultures pending, continue Vancomycin Zosyn Acute metabolic encephalopathy Acute generalized weakness Uncontrolled diabetes Dementia Hypertension Patient is hospice revoked Time spent 70 minutes Advanced care planning time is 20 minutes Patient is full code Blood cultures negative Denisa test pending Rapid flu test pending Plan discussed with: Patient, Other (RN) My Orders Orders - LAURA MATHIS MD Procedure Category Date Status Time Glucose Blood PHA 06/19/25 In Process (Accu-Chek Comfort 20:00 Insulin R (Human) PHA 06/19/25 In Process (Insulin R) 20:00 Dextrose 50% Syringe PHA 06/19/25 In Process 16:15 Chest Xray 1 View XY 06/20/25 Taken 12:04 Date of Service: Jun 20, 2025 Billing Provider: LAURA MATHIS MD Common Visit Codes: [id number] CARE 30-74 MIN LAURA MATHIS MD Jun 20, 2025 13:09
--- NOTE | 2025-06-20 13:36 | DVHINCON2 ---
Date of service: Jun 20, [address] Madisyn Broderick Reason for Consultation Acute respiratory failure History of Present Illness History Source: Patient, RN Notes, MD Notes Exam Limitations: Clinical condition HPI Patient is a 70-year old gentleman with a history of dementia, hypertension and diabetes who presented with altered mental status. Was seen in the emergency room where he was intubated for airway protection and placed on mechanical ventilation. Initial settings ac volume control RR 20, tidal volume 400, PEP 5, FiO2 100%. Patient was also found to have a markedly elevated blood sugar consistent with DKA and he was started on IV insulin drip. ABG pH 7.05, pCO2 30, pO2 440, tested positive for covid. Home Meds Active Scripts Hydrocodone-Acetaminophen (Hydrocodone/Acetaminophen 5-325 mg) 1 Tab Tab, 1 TAB PO TIDP PRN for 7 Days, #21 TAB 0 Refills Prov:ELIAS BOB MD 06/09/25 Cephalexin (KEFLEX CAPSULE) 250 Mg Cp, 2 CAP PO BID for 14 Days, #56 CAP 0 Refills Prov:ELIAS BOB MD 06/09/25 Past Medical History Cardiac: HTN Central Nervous System: Dementia Endocrine: IDDM Past Surgical History: Amputation (LLE / RLE toe) Family History: DM, Hypertension Patient Family History: Diabetes mellitus G8 MOTHER G8 FATHER Hypertension G8 MOTHER G8 FATHER Smoker: No Hx (Negative) Alocohol: None Drugs: None Lives with: With family Domestic Violence: Neg Review of Systems Comments unable to obtain: patient intubated and sedated H&P Exam Vital Signs Vital Signs Date Time Temp Pulse Resp B/P (MAP) Pulse Ox O2 Delivery O2 Flow Rate FiO2 06/20/25 13:30 100 20 114/47 (69) 99 06/20/25 12:10 30 06/20/25 09:45 100.2 100.2 06/20/25 07:15 Mechanical Ventilator+ 06/18/25 14:10 8 General Appeara: Well developed, Well nourished, Normal Appearance Head Exam: Normal inspection Neck Exam: Normal inspection, Non-tender, Normal alignment Eye Exam: bilateral eye Normal inspection, bilateral eye PERRL, bilateral eye EOMI Ear Exam: bilateral ear Auricle normal, bilateral ear Canal normal, bilateral ear TM normal Nasal Exam: Normal inspection Mouth: Normal Inspection Pulmonary/Respiratory: Decreased breath sounds Cardiovascular/Chest: Normal inspection Peripheral Pulses: 4+ Radial (R), 4+ Radial (L), 4+ Brachial (R), 4+ Brachial (L) Abdominal Exam: Normal bowel sounds Labs/Xrays Labs Test 06/20/25 12:00 06/20/25 07:30 06/20/25 03:30 06/19/25 22:27 Range/Units POC Glucose 121 H 70-106 mg/dl Blood Gas Specimen Type Arterial Blood Gas Sample Site Left radial Blood Gas Patient Temperature 37.0 Arterial Blood Date Drawn [id number] Arterial Blood pH 7.398 7.350-7.450 Arterial Blood Partial Pressure CO2 26.5 L 35.0-48.0 mmHg Arterial Blood Partial Pressure O2 76.0 L 83.0-108.0 mmHg Arterial Blood HCO3 16.0 L 21.0-28.0 mmol/L Arterial Blood Oxygen Saturation 96.5 94.0-98.0 % Arterial Blood Base Excess -7.6 L -2.0-3.0 mmol/L Arterial Blood Oxyhemoglobin 95.8 94.0-98.0 % Arterial Blood Carboxyhemoglobin 0.3 L 0.5-1.5 % Arterial Blood Methemoglobin 0.4 0.0-1.5 % Vicente Test Modified Blood Gas Total Hemoglobin 10.40 L 13.5-17.5 g/dL Blood Gas Set Respiration Rate 20.0 Blood Gas Modality Vent - ac FiO2 % 30.0 Blood Gas Tidal Volume 400.0 Blood Gas PEEP or CPAP 5.0 White Blood Count 18.4 H 4.4-10.8 10^3/uL Red Blood Count 2.93 L 4.5-5.90 10^6/uL Hemoglobin 9.9 L 13.5-17.5 g/dL Hematocrit 28.6 #L 41.0-53.0 % Mean Corpuscular Volume 97.6 80.0-100.0 fL Mean Corpuscular Hemoglobin 33.9 H 28.0-32.0 pg Mean Corpuscular Hemoglobin Concent 34.7 32.0-36.0 g/dL Red Cell Distribution Width 13.5 11.8-14.3 % Platelet Count 288 140-450 10^3/uL Mean Platelet Volume 8.3 6.9-10.8 fL Neutrophils (%) (Auto) 83.5 H 37.0-80.0 % Lymphocytes (%) (Auto) 8.2 L 10.0-50.0 % Monocytes (%) (Auto) 7.6 0.0-12.0 % Eosinophils (%) (Auto) 0.1 0.0-7.0 % Basophils (%) (Auto) 0.6 0.0-2.0 % Neutrophils # (Auto) 15.4 H 1.6-8.6 10 ^3/uL Lymphocytes # (Auto) 1.5 0.4-5.4 10 ^3/uL Monocytes # (Auto) 1.4 H 0-1.3 10 ^3/uL Eosinophils # (Auto) 0 0-0.8 10 ^3/uL Basophils # (Auto) 0.1 0-0.2 10 ^3/uL Nucleated Red Blood Cells 0.0 % Creatinine 1.23 0.700-1.30 mg/dL Glomerular Filtration Rate Calc 64 >90 mL/min Random Vancomycin Level 8.8 5-10 ug/mL Sodium Level 139 136-145 mmol/L Potassium Level 4.2 3.5-5.1 mmol/L Chloride Level 116 H 98-107 mmol/L Carbon Dioxide Level 14 L 20-31 mmol/L Anion Gap 9 5-15 Blood Urea Nitrogen 17 # 9-23 mg/dL BUN/Creatinine Ratio 13.0 10.0-20.0 Serum Glucose 409 #*H 74-106 mg/dL Calcium Level 8.0 L 8.7-10.4 mg/dL Test 06/19/25 07:36 06/19/25 06:20 06/19/25 03:24 06/18/25 16:25 Range/Units Influenza Type A Antigen Negative Negative Influenza Type B Antigen Negative Negative SARS-CoV-2 Antigen (Rapid) Positive *A NEGATIVE Blood Gas Critical Value Read Back Yes Blood Gas Notified Whom Johanna talbert Blood Gas Notified Time [id number] Blood Gas Notified By Abhi lino Total Bilirubin 0.3 0.2-1.0 mg/dL Aspartate Amino Transferase (AST) 12 L 13-40 U/L Alanine Aminotransferase (ALT) < 9 7-40 U/L Alkaline Phosphatase 182 H 46-116 U/L Total Protein 6.0 5.7-8.2 g/dL Albumin 3.0 L 3.2-4.8 g/dL Phosphorus Level 5.0 2.4-5.1 mg/dL Magnesium Level 2.5 1.6-2.6 mg/dL Troponin I High Sensitivity 55 *H </=54 ng/L Test 06/18/25 15:25 06/18/25 13:37 06/18/25 13:09 Range/Units Lactic Acid Level 2.3 *H 0.4-2.0 mmol/L Urine Color Light-yellow Yellow Urine Clarity Clear Clear Urine pH 5.5 5.0-9.0 Urine Specific [place] 1.025 1.001-1.035 Urine Protein Trace H Negative Urine Ketones 2+ H Negative Urine Blood Trace H Negative /uL Urine Nitrite Negative Negative Urine Bilirubin Negative Negative Urine Urobilinogen Normal Negative mg/dL Urine Leukocyte Esterase Negative Negative /uL Urine RBC 1 0 - 3 /hpf Urine Microscopic WBC < 1 0-3 /HPF Urine Squamous Epithelial Cells None seen <5 /hpf Urine Bacteria Few H None Seen /hpf Urine Hyaline Casts Few 0 - 2 /lpf Urine Glucose 4+ H Normal mg/dL Differential Total Cells Counted 100.0 100 Neutrophils % (Manual) 87 H 37.0-80.0 Band Neutrophils % (Manual) 4 Lymphocytes % (Manual) 2 L 10.0-50.0 Monocytes % (Manual) 6 0-12 Eosinophils % (Manual) 1 0-7 Basophils % (Manual) 0 0.0-2.0 Metamyelocytes % (manual) 0 Myelocytes % (Manual) 0 Promyelocytes % (Manual) 0 Blast Cells % (Manual) 0 Reactive Lymphocytes 0 Platelet Estimate Increased Hypochromasia (manual) Slight Anisocytosis (manual) Slight Macrocytosis Marked Beta-Hydroxybutyric Acid > 4.500 H < 0.4 mmol/L Microbiology Date/Time Source Procedure Growth Status 06/18/25 15:04 Sputum Gram Stain Pending Resulted 06/18/25 15:04 Sputum Respiratory Culture - Preliminary Resulted 06/18/25 13:09 Blood Blood Culture - Preliminary NO GROWTH AFTER 48 HOURS OF INCUBATION. Resulted Assessment/Plan Plan Impression Acute hypoxemic respiratory failure Altered mental status Hyperglycemia DKA Patient seen and examined in the ER Events On mechanical ventilation S/p intubation PEEP 5, FiO2 100% Labs and imaging reviewed ABG reviewed pH 7.39, pCO2 26, pO2 76 Management Vent support Titrate to maintain sats 90% or above Sedation for vent synchrony Continue antibiotics F/u cultures Bronchodilators Monitor renal function Monitor electrolytes Supplement as needed Pressors as needed for hemodynamic support To maintain a mean arterial pressure of 65 mmHg Glycemic control IV fluids DVT prophylaxis Critical care time 35 minutes Plan discussed with: Other (Rn) BANDAR CARTWRIGHT MD Jun 20, 2025 13:36
--- NOTE | 2025-06-20 13:58 | DVH ---
CHEST RADIOGRAPH Indication: confirm ETT placement Technique: Single frontal view of the chest was obtained Comparison: XY CHEST PORTABLE on DOS: 06/19/25, XY CHEST XRAY 1 VIEW on DOS: 06/18/25, XY CHEST XRAY 1 EW on DOS: 06/18/25, XY CHEST PORTABLE on DOS: 06/18/25, XY CHEST XRAY 1 VIEW on DOS: 06/04/25 FINDINGS: Lines and Tubes: Endotracheal tube tip 4.2 cm above the alexis. Enteric tube in appropriate position . Right IJ line noted. Lungs: No focal consolidation. Pleura: No effusion. No pneumothorax. Cardiomediastinal contours: Unremarkable Bones: No acute osseous abnormality. IMPRESSION: 1. Endotracheal tube tip 4.2 cm above the alexis, now in appropriate position.
--- NOTE | 2025-06-20 16:33 | DVHPN2 ---
Progress Note - Dictate Date Seen: Jun 20, 2025 Medical Necessity Reason Pt with a Central, PICC or Fol: No Subjective Patient continues to be intubated and sedated. Not on pressors. On isotonic saline at 125 mL/hour vital signs Vital Sign Date Time Temp Pulse Resp B/P (MAP) Pulse Ox O2 Delivery O2 Flow Rate FiO2 06/20/25 16:23 98 06/20/25 15:30 20 131/68 (89) 100 06/20/25 13:40 30 06/20/25 09:45 100.2 100.2 06/20/25 07:15 Mechanical Ventilator+ 06/18/25 14:10 8 Total Intake and Output 06/19/25 06/19/25 06/20/25 15:00 23:00 07:00 Intake Total 2480.80 ml 2310.30 ml 1035.80 ml Output Total 1500 ml 1100 ml Balance 2480.80 ml 810.30 ml -64.20 ml medications Current Medications Medications Dose Ordered Sig/Philip Route Start Time Stop Time Status Last Admin Dose Admin Norepinephrine Bitartrate 250 ml @ 3.75 mls/hr Q24H IV 06/18/25 14:45 06/18/25 14:45 3.75 MLS/HR Propofol 100 ml @ 1.95 mls/hr Q24H IV 06/18/25 14:45 06/19/25 14:45 5.85 MLS/HR Midazolam HCl 50 ml @ 1 mls/hr Q24H IV 06/18/25 14:45 06/20/25 11:16 5 MLS/HR Fentanyl Citrate 250 ml @ 2.5 mls/hr Q24H IV 06/18/25 14:45 06/19/25 14:45 7.5 MLS/HR Dextrose 50 ml UD PRN IV 06/18/25 17:00 Cancel Insulin Glargine 15 units DAILY SC 06/19/25 10:00 06/20/25 10:23 15 UNITS Piperacillin Sod/ Tazobactam Sod 100 ml @ 25 mls/hr Q8HR IV 06/19/25 06:00 06/20/25 14:08 25 MLS/HR Vancomycin HCl 0 ml @ 0 mls/hr UD IV 06/18/25 20:30 Ondansetron HCl 4 mg Q4HP PRN IV 06/18/25 20:30 Nitroglycerin 0.4 mg Q5MINP PRN SL 06/18/25 20:30 Morphine Sulfate 2 mg Q30M PRN IV 06/18/25 20:30 Insulin Human (Reg)/Sodium Chloride 100 ml @ 0.5 mls/hr Q24H IV 06/19/25 08:30 Diagnostic Test (Pha) 1 strip IQ4HR 06/19/25 20:00 06/20/25 16:18 1 STRIP Insulin Human Regular IQ4HR SC 06/19/25 20:00 06/20/25 16:23 8 UNITS Dextrose 50 ml UD PRN IV 06/19/25 16:15 06/20/25 07:02 50 ML Sodium Chloride 1,000 ml @ 125 mls/hr Q8H IV 06/20/25 00:15 06/20/25 16:23 125 MLS/HR objective Intubated and sedated HEENT: Normocephalic, no JVD Lungs: Bilateral good air entry CVS: S1, S2 regular rate rhythm Abdomen: Soft, bowel sounds present [employer]: Intubated and sedated Extremities: Status post left BKA. Right foot in bandages. laboratory and microbiology Laboratory Tests 06/20/25 03:30 06/19/25 22:27 Test 06/19/25 22:27 Range/Units Serum Glucose 409 #*H 74-106 mg/dL Problem List Acute kidney injury secondary to osmotic diuresis due to hyperglycemia Acute hypoxic respiratory failure Shock probably secondary to sepsis, resolved Diabetic ketoacidosis High anion gap metabolic acidosis secondary to DKA Hypokalemia Assessment/Plan GFR with improvement. Excellent urine output. Extubation as per Pulmonary. Continue with IV fluids Labs in a.m. Plan discussed with: ALEX Pablo MD Jun 20, 2025 16:33
[2025-06-21] VITALS (14 sets, daily range): BP systolic 76–130; BP diastolic 40–71; PULSE 72–95; RESP 14–28; O2SAT 97–100
[2025-06-21 09:13] LABS: Base Excess -7.2 mmol/L (-2.0-3.0)
[2025-06-21] MEDS: SODIUM CHLORIDE 0.9% 1,000 ML IV SCH (11:15)
[2025-06-21] MEDS ORDERED: DEXTROSE (50%) 50ML SYRG IV PRN (11:15)
--- NOTE | 2025-06-21 11:22 | DVHPN2 ---
Subjective Patient chemically sedated Reviewed: Care Plan, H&P, Labs, Medications, Previous Orders, Radiology Changes from previous H/P or p: No Changes General: Per HPI Eyes: No Pain, No Vision change, No Conjunctivae inflammation, No Eyelid inflammation, No Other, No Redness ENT: No Ear pain, No Ear discharge, No Nose pain, No Nose discharge, No Nose congestion, No Mouth pain, No Mouth swelling, No Throat pain, No Throat swelling, No Other Cardiovascular: No Chest Pain, No Palpitations, No Orthopnea, No Paroxysmal Noc. Dyspnea, No Edema, No Lt Headedness; Other (Hypotension) Respiratory: No Cough, No Dry; Shortness of breath; No SOB with excertion, No Wheezing, No Hemoptysis, No Pleuritic Pain, No Sputum, No Other Gastrointestinal: No Nausea, No Vomiting, No Abdominal Pain, No Diarrhea, No Constipation, No Melena, No Hematochezia, No Other Genitourinary: No Dysuria, No Frequency, No Incontinence, No Hematuria, No Retention, No Other Musculoskeletal: other (BKA (LLE), RLE toe amputation); No neck pain, No shoulder pain, No arm pain, No back pain, No hand pain, No leg pain, No foot pain Skin: No Rash, No Lesions, No Jaundice, No Bruising, No Other Objective Vitals Vital Signs Date Time Temp Pulse Resp B/P (MAP) Pulse Ox O2 Delivery O2 Flow Rate FiO2 06/21/25 10:02 76 20 96/51 (66) 99 30 06/21/25 07:15 Mechanical Ventilator+ 06/21/25 07:15 97.5 97.5 06/20/25 19:40 65 Intake/Output Intake and Output 06/21/25 07:00 Intake Total 4001.45 ml Output Total 4100 ml Balance -98.55 ml Intake Oral 0 ml IV Total 4001.45 ml Output Urine Total 4100 ml General Appearance: moderate distress, Other (Chemically sedated) HEENT: Atraumatic, PERRLA Lungs: Other (Mechanical ventilation) Cardiovascular: Normal S1, Normal S2 Abdomen: Normal bowel sounds, Soft, No tenderness, No hepatospenomegaly Genitourinary: No Apparent Abnormalities (Garcia catheter) Musculoskeletal: Other (Unable to assess) Neuro: Other (Unable to assess) Skin: Other (Right foot gangrene. Status post surgery) Psych/Mental Status: Other (Unable to assess) Medications Current Medications Medications Dose Ordered Sig/Philip Route Start Time Stop Time Status Last Admin Dose Admin Norepinephrine Bitartrate 250 ml @ 3.75 mls/hr Q24H IV 06/18/25 14:45 06/18/25 14:45 3.75 MLS/HR Propofol 100 ml @ 1.95 mls/hr Q24H IV 06/18/25 14:45 06/21/25 06:49 11.7 MLS/HR Midazolam HCl 50 ml @ 1 mls/hr Q24H IV 06/18/25 14:45 06/21/25 07:30 5 MLS/HR Fentanyl Citrate 250 ml @ 2.5 mls/hr Q24H IV 06/18/25 14:45 06/19/25 14:45 7.5 MLS/HR Dextrose 50 ml UD PRN IV 06/18/25 17:00 Cancel Insulin Glargine 15 units DAILY SC 06/19/25 10:00 06/21/25 10:30 15 UNITS Piperacillin Sod/ Tazobactam Sod 100 ml @ 25 mls/hr Q8HR IV 06/19/25 06:00 06/21/25 05:58 25 MLS/HR Vancomycin HCl 0 ml @ 0 mls/hr UD IV 06/18/25 20:30 Ondansetron HCl 4 mg Q4HP PRN IV 06/18/25 20:30 Nitroglycerin 0.4 mg Q5MINP PRN SL 06/18/25 20:30 Morphine Sulfate 2 mg Q30M PRN IV 06/18/25 20:30 Insulin Human (Reg)/Sodium Chloride 100 ml @ 0.5 mls/hr Q24H IV 06/19/25 08:30 Diagnostic Test (Pha) 1 strip IQ4HR 06/19/25 20:00 06/21/25 08:00 1 STRIP Insulin Human Regular IQ4HR SC 06/19/25 20:00 06/21/25 08:00 4 UNITS Dextrose 50 ml UD PRN IV 06/19/25 16:15 06/20/25 07:02 50 ML Sodium Chloride 1,000 ml @ 125 mls/hr Q8H IV 06/20/25 00:15 06/21/25 08:00 125 MLS/HR Laboratory Results Laboratory Tests 06/19/25 22:27 06/20/25 03:30 06/21/25 03:34 Urinalysis Test 06/18/25 13:37 Urine Color Light-yellow (Yellow) Urine Clarity Clear (Clear) Urine pH 5.5 (5.0-9.0) Urine Specific [place] 1.025 (1.001-1.035) Urine Protein Trace (Negative) H Urine Ketones 2+ (Negative) H Urine Blood Trace /uL (Negative) H Urine Nitrite Negative (Negative) Urine Bilirubin Negative (Negative) Urine Urobilinogen Normal mg/dL (Negative) Urine Leukocyte Esterase Negative /uL (Negative) Urine RBC 1 /hpf (0 - 3) Urine Microscopic WBC < 1 /HPF (0-3) Urine Squamous Epithelial Cells None seen /hpf (<5) Urine Bacteria Few /hpf (None Seen) H Urine Hyaline Casts Few /lpf (0 - 2) Urine Glucose 4+ mg/dL (Normal) H Blood Gas Results Test 06/21/25 08:51 Arterial Blood pH 7.394 (7.350-7.450) FiO2 % 30.0 Microbiology Microbiology Date/Time Source Procedure Growth Status 06/18/25 15:04 Sputum Gram Stain Pending Resulted 06/18/25 15:04 Sputum Respiratory Culture - Preliminary Resulted 06/18/25 13:09 Blood Blood Culture - Preliminary NO GROWTH AFTER 48 HOURS OF INCUBATION. Resulted Labs and/or images reviewed: Labs reviewed by me, Image(s) reviewed by me Assessment/Plan Assessment/Plan Impression: -septic shock -right foot osteomyelitis -diabetic ketoacidosis -acute hypoxic respiratory failure -diabetes mellitus -primary hypertension -acute kidney injury Plan: -CT scan right foot -start Glucerna at 30 mL/hour -Protonix 40 mg IV b.i.d. -continue vancomycin, stop Zosyn and changed to cefepime -rosales cultures -decrease IV fluids -continue current ventilator settings -repeat labs today -long discussion made with the patient's son who was bedside. Plan of care discussed. -consider podiatry consultation after scan of the foot. Critical care time spent with patient discussing and formulating plan of care: 90 minutes. This does not include time spent performing procedures. This medical document was created using an electronic medical record system with [employer] system. Although this document has been carefully reviewed, there may still be some phonetic and typographical errors. These areas are purely typographical due to imperfections of the software programs, and do not reflect any compromise in the patient's medical care. Plan discussed with: Patient, Other (RN) My Orders Orders - MAINE VELAZCO NP Procedure Category Date Status Time Comprehensive LAB 06/21/25 Logged Metabolic Panel 10:49 Magnesium LAB 06/21/25 Logged 10:49 Phosphorus LAB 06/21/25 Logged 10:49 Complete Blood Count LAB 06/21/25 Logged 10:49 Chest Xray 1 View XY 06/21/25 Taken 10:49 Acetone LAB 06/21/25 Logged 10:52 Ng To Lis FEDE 06/21/25 In Process 11:01 Ng/Orogastric Tube To FEDE 06/21/25 In Process LIS 11:08 Ct R Foot Wo Contrast CT 06/21/25 Logged 11:12 NS PHA 06/21/25 Transmitted 11:15 Glucose Blood PHA 06/21/25 Transmitted (Accu-Chek Comfort 12:00 Moderate Insulin Ss PHA 06/21/25 Transmitted 12:00 Dextrose 50% Syringe PHA 06/21/25 Transmitted 11:15 Pantoprazole PHA 06/21/25 Transmitted (Protonix) 22:00 Nutritional PHA 06/21/25 Transmitted Supplements (Glucerna 11:15 Cefepime 1 Gm PHA 06/21/25 Transmitted 14:00 Date of Service: Jun 21, 2025 Billing Provider: MAINE VELAZCO NP Common Visit Codes: 15821-[id number] CARE 30-74 MIN, [id number] CARE-EACH +30MIN MAINE VELAZCO NP Jun 21, 2025 11:22
--- NOTE | 2025-06-21 11:48 | DVH ---
CHEST RADIOGRAPH Indication: pna Technique: Single frontal view of the chest was obtained Comparison: XY CHEST XRAY 1 VIEW on DOS: 06/20/25, XY CHEST PORTABLE on DOS: 06/19/25, XY CHEST XRAY 1 EW on DOS: 06/18/25, XY CHEST XRAY 1 VIEW on DOS: 06/18/25, XY CHEST PORTABLE on DOS: 06/18/25, XY CHEST XR AY 1 VIEW on DOS: 06/20/25 FINDINGS: Lines and Tubes: Endotracheal tube tip 4.2 cm above the alexis. Enteric tube in appropriate position . Right IJ line noted. Lungs: No focal consolidation. Pleura: No effusion. No pneumothorax. Cardiomediastinal contours: Unremarkable Bones: No acute osseous abnormality. IMPRESSION: 1. Endotracheal tube tip 4.2 cm above the alexis, now in appropriate position.
[2025-06-21] MEDS ORDERED: CEFEPIME 1GM/50ML 50 ML IV SCH (12:00)
[2025-06-21] MEDS: VANCOMYCIN 1.25GM/250ML 250 ML IV ONE (12:04)
[2025-06-21] MEDS: ACCU-CHEK COMFORT CURVE STRIP VI SCH (12:40)
[2025-06-21] MEDS: InsuLIN REG 1unit/0.01ml Soln (100units/ml) SC SCH (12:43)
[2025-06-21 13:56] LABS: Hematocrit 31.8 % (41.0-53.0); Hemoglobin 11.0 g/dL (13.5-17.5); Mean Corpuscular Hemoglobin 33.0 pg (28.0-32.0); Mean Corpuscular Volume 95.6 fL (80.0-100.0); Nucleated Red Blood Cells % 0.0 %
--- NOTE | 2025-06-21 14:03 | DVH ---
EXAM: CT CT R FOOT WO CONTRAST INDICATION: s/p surgery, questionable abscess, gangrene TECHNIQUE: Axial images of right foot have been obtained along with coronal and sagittal reformatted images. All CT scans at this facility use dose modulation, iterative reconstruction, and/or weight ba sed dosing when appropriate to reduce radiation dose to as low as reasonably achievable. COMPARISON: CT CT R FOOT WO CONTRAST on DOS: 05/31/25 FINDINGS: BONES: Soft tissue emphysema centered around the residual 1st metatarsal stump. No abnormal osseous erosion or periosteal reaction however maintain elevated concern for osteomyelitis. Well corticated o ssicle likely related to prior injury adjacent to the anterior process of the calcaneus. MUSCLES: No abnormal attenuation. JOINT SPACES: No large joint effusion. Soft tissue calcification versus intra-articular bodies in th e tibiotalar joint recess. TENDONS/LIGAMENTS: Intact. Achilles insertional enthesophyte. OTHER: Vascular calcifications. IMPRESSION: 1. Soft tissue emphysema centered around the residual 1st metatarsal stump. 2. Maintain elevated concern for osteomyelitis. 3. In regards to the clinical question, no definitive measurable abscess.
[2025-06-21 14:07] LABS: Chloride 114 mmol/L (98-107); Potassium 2.6 mmol/L (3.5-5.1); Sodium 144 mmol/L (136-145)
[2025-06-21 14:08] LABS: Anion Gap 11 (5-15); Calcium 7.6 mg/dL (8.7-10.4); Carbon Dioxide 19 mmol/L (20-31)
[2025-06-21 14:12] LABS: Alkaline Phosphatase 211 U/L (46-116); BUN/Creatinine Ratio 11.4 (10.0-20.0); Blood Urea Nitrogen 12 mg/dL (9-23); Glucose 253 mg/dL (74-106)
[2025-06-21] MEDS: CEFEPIME 1GM/50ML 50 ML IV SCH (14:14)
[2025-06-21 14:15] LABS: Alanine Aminotransferase 13 U/L (7-40)
[2025-06-21 14:16] LABS: Albumin 2.6 g/dL (3.2-4.8); Bilirubin, Total 0.4 mg/dL (0.2-1.0); Magnesium 1.8 mg/dL (1.6-2.6); Total Protein 5.7 g/dL (5.7-8.2)
[2025-06-21] MEDS: Glucerna 1.2 Cal 1Liter BOTTLE GT SCH (14:32)
--- NOTE | 2025-06-21 16:21 | DVHPN2 ---
Progress Note - Dictate Date Seen: Jun 21, 2025 Medical Necessity Reason Pt with a Central, PICC or Fol: No vital signs Vital Sign Date Time Temp Pulse Resp B/P (MAP) Pulse Ox O2 Delivery O2 Flow Rate FiO2 06/21/25 14:50 86 22 130/71 (90) 98 30 06/21/25 07:15 Mechanical Ventilator+ 06/21/25 07:15 97.5 97.5 06/20/25 19:40 65 Total Intake and Output 06/20/25 06/20/25 06/21/25 15:00 23:00 07:00 Intake Total 1480.40 ml 1218.10 ml 1302.95 ml Output Total 1000 ml 1000 ml 2100 ml Balance 480.40 ml 218.10 ml -797.05 ml medications Current Medications Medications Dose Ordered Sig/Philip Route Start Time Stop Time Status Last Admin Dose Admin Norepinephrine Bitartrate 250 ml @ 3.75 mls/hr Q24H IV 06/18/25 14:45 06/18/25 14:45 3.75 MLS/HR Propofol 100 ml @ 1.95 mls/hr Q24H IV 06/18/25 14:45 06/21/25 06:49 11.7 MLS/HR Midazolam HCl 50 ml @ 1 mls/hr Q24H IV 06/18/25 14:45 06/21/25 07:30 5 MLS/HR Fentanyl Citrate 250 ml @ 2.5 mls/hr Q24H IV 06/18/25 14:45 06/19/25 14:45 7.5 MLS/HR Dextrose 50 ml UD PRN IV 06/18/25 17:00 Cancel Insulin Glargine 15 units DAILY SC 06/19/25 10:00 06/21/25 10:30 15 UNITS Vancomycin HCl 0 ml @ 0 mls/hr UD IV 06/18/25 20:30 Ondansetron HCl 4 mg Q4HP PRN IV 06/18/25 20:30 Nitroglycerin 0.4 mg Q5MINP PRN SL 06/18/25 20:30 Morphine Sulfate 2 mg Q30M PRN IV 06/18/25 20:30 Sodium Chloride 1,000 ml @ 75 mls/hr [id number] IV 06/21/25 11:15 06/21/25 11:15 75 MLS/HR Diagnostic Test (Pha) 1 strip Q6HR 06/21/25 12:00 06/21/25 12:40 1 STRIP Insulin Human Regular Q6HR SC 06/21/25 12:00 06/21/25 12:43 3 UNITS Dextrose 50 ml UD PRN IV 06/21/25 11:15 Pantoprazole Sodium 40 mg BID IV 06/21/25 22:00 Enteral Nutritional Formula 1,000 ml 30ML/HR GT 06/21/25 11:15 06/21/25 14:32 1,000 ML Cefepime HCl 50 ml @ 12.5 mls/hr Q12H IV 06/21/25 14:00 06/21/25 14:14 12.5 MLS/HR laboratory and microbiology Laboratory Tests 06/21/25 13:35 Test 06/21/25 13:35 Range/Units Serum Glucose 253 #H 74-106 mg/dL Assessment/Plan Acute kidney injury secondary to osmotic diuresis due to hyperglycemia Acute hypoxic respiratory failure s/p intubation on mechanical ventilator Shock probably secondary to sepsis, resolved Diabetic ketoacidosis, s/p insulin drip High anion gap metabolic acidosis secondary to DKA Hypokalemia Hypophosphatemia Assessment/Plan GFR with improvement. Excellent urine output. Continue NS at 75 cc/h Supplement K phosphate Vent management per Pulmonary. Labs in a.m. Plan discussed with: RAUL Beck MD Jun 21, 2025 16:21
[2025-06-21] MEDS: POTASSIUM CHL 20MEQ/100ML 100 ML IV SCH (17:10)
--- NOTE | 2025-06-21 17:19 | DVHPN2 ---
Progress Note - Dictate Date Seen: Jun 21, 2025 Medical Necessity Reason Pt with a Central, PICC or Fol: No vital signs Vital Sign Date Time Temp Pulse Resp B/P (MAP) Pulse Ox O2 Delivery O2 Flow Rate FiO2 06/21/25 16:00 98 06/21/25 15:30 20 134/78 (96) 99 06/21/25 14:50 30 06/21/25 07:15 Mechanical Ventilator+ 06/21/25 07:15 97.5 97.5 06/20/25 19:40 65 Total Intake and Output 06/20/25 06/20/25 06/21/25 14:59 22:59 06:59 Intake Total 1463.40 ml 1373.95 ml 1302.95 ml Output Total 1000 ml 1000 ml 2100 ml Balance 463.40 ml 373.95 ml -797.05 ml medications Current Medications Medications Dose Ordered Sig/Philip Route Start Time Stop Time Status Last Admin Dose Admin Norepinephrine Bitartrate 250 ml @ 3.75 mls/hr Q24H IV 06/18/25 14:45 06/18/25 14:45 3.75 MLS/HR Propofol 100 ml @ 1.95 mls/hr Q24H IV 06/18/25 14:45 06/21/25 06:49 11.7 MLS/HR Midazolam HCl 50 ml @ 1 mls/hr Q24H IV 06/18/25 14:45 06/21/25 07:30 5 MLS/HR Fentanyl Citrate 250 ml @ 2.5 mls/hr Q24H IV 06/18/25 14:45 06/19/25 14:45 7.5 MLS/HR Dextrose 50 ml UD PRN IV 06/18/25 17:00 Cancel Insulin Glargine 15 units DAILY SC 06/19/25 10:00 06/21/25 10:30 15 UNITS Vancomycin HCl 0 ml @ 0 mls/hr UD IV 06/18/25 20:30 Ondansetron HCl 4 mg Q4HP PRN IV 06/18/25 20:30 Nitroglycerin 0.4 mg Q5MINP PRN SL 06/18/25 20:30 Morphine Sulfate 2 mg Q30M PRN IV 06/18/25 20:30 Sodium Chloride 1,000 ml @ 75 mls/hr [id number] IV 06/21/25 11:15 06/21/25 11:15 75 MLS/HR Diagnostic Test (Pha) 1 strip Q6HR 06/21/25 12:00 06/21/25 12:40 1 STRIP Insulin Human Regular Q6HR SC 06/21/25 12:00 06/21/25 12:43 3 UNITS Dextrose 50 ml UD PRN IV 06/21/25 11:15 Pantoprazole Sodium 40 mg BID IV 06/21/25 22:00 Enteral Nutritional Formula 1,000 ml 30ML/HR GT 06/21/25 11:15 06/21/25 14:32 1,000 ML Cefepime HCl 50 ml @ 12.5 mls/hr Q12H IV 06/21/25 14:00 06/21/25 14:14 12.5 MLS/HR Potassium Chloride 100 ml @ 50 mls/hr Q2H IV 06/21/25 16:15 06/21/25 22:14 06/21/25 17:10 50 MLS/HR laboratory and microbiology Laboratory Tests 06/21/25 13:35 Test 06/21/25 13:35 Range/Units Serum Glucose 253 #H 74-106 mg/dL Assessment/Plan Impression Acute hypoxemic respiratory failure Altered mental status pneumonia covid 19 Hyperglycemia DKA Patient seen and examined in the ER Events On mechanical ventilation S/p intubation PEEP 5, FiO2 30% Labs and imaging reviewed ABG reviewed pH 7.39, pCO2 26, pO2 90 Management Vent support Titrate to maintain sats 90% or above Sedation for vent synchrony Continue antibiotics F/u cultures Bronchodilators withold steroids in view poorly controlled DM CXR clear lungs Monitor renal function Monitor electrolytes Supplement as needed Pressors as needed for hemodynamic support To maintain a mean arterial pressure of 65 mmHg Glycemic control IV fluids DVT prophylaxis Critical care time 35 minutes Plan discussed with: Other (rn) BANDAR CARTWRIGHT MD Jun 21, 2025 17:18
[2025-06-21] MEDS: POTASSIUM PHOSPHATE 22 MEQ in SODIUM CHL 0.9% 100 ML IV ONE (21:10)
[2025-06-21] MEDS: PANTOPRAZOLE 40 MG/10 ML VIAL INJ IV SCH (21:51)
[2025-06-22] VITALS (105 sets, daily range): BP systolic 87–138; BP diastolic 46–77; PULSE 83–139; RESP 16–43; TEMP 97.5–99.7; O2SAT 95–100
[2025-06-22 05:53] LABS: Mean Corpuscular Volume 95.3 fL (80.0-100.0)
[2025-06-22 05:54] LABS: Alanine Aminotransferase 11 U/L (7-40); Anion Gap 10 (5-15); BUN/Creatinine Ratio 10.1 (10.0-20.0); Blood Urea Nitrogen 10 mg/dL (9-23)
[2025-06-22 05:55] LABS: Magnesium 1.7 mg/dL (1.6-2.6); Total Protein 5.8 g/dL (5.7-8.2)
--- NOTE | 2025-06-22 05:55 | DVH ---
CHEST RADIOGRAPH Indication: INTUBATED Technique: Single frontal view of the chest was obtained COMPARISON: XY CHEST XRAY 1 VIEW on DOS: 06/21/25, XY CHEST XRAY 1 VIEW on DOS: 06/20/25, XY CHEST PORTAB LE on DOS: 06/19/25, XY CHEST XRAY 1 VIEW on DOS: 06/18/25, XY CHEST XRAY 1 VIEW on DOS: 06/18/25, XY CHEST XRAY 1 VIEW on DOS: 06/21/25 FINDINGS: Lines and Tubes: Endotracheal tube tip 6.4 cm above the alexis. Enteric tube in appropriate position . Right IJ line noted. Lungs: No focal consolidation. Pleura: No effusion. No pneumothorax. Cardiomediastinal contours: Unremarkable Bones: No acute osseous abnormality. IMPRESSION: 1. Endotracheal tube tip 4.2 cm above the alexis, now in appropriate position.
[2025-06-22 05:57] LABS: Hematocrit 31.8 % (41.0-53.0); Hemoglobin 11.1 g/dL (13.5-17.5); Mean Corpuscular Hemoglobin 33.3 pg (28.0-32.0)
[2025-06-22 05:58] LABS: Albumin 2.7 g/dL (3.2-4.8); Alkaline Phosphatase 353 U/L (46-116); Bilirubin, Total 0.3 mg/dL (0.2-1.0); Calcium 7.6 mg/dL (8.7-10.4); Carbon Dioxide 19 mmol/L (20-31); Chloride 116 mmol/L (98-107); Glucose 185 mg/dL (74-106); Potassium 3.1 mmol/L (3.5-5.1); Sodium 145 mmol/L (136-145)
[2025-06-22 06:54] LABS: Total Cells Counted 100.0 (100)
[2025-06-22] MEDS: POTASSIUM CHL 20MEQ/100ML 100 ML IV SCH (07:32)
[2025-06-22] MEDS: MAGNESIUM SULFATE 1GM/100ML 100 ML IV SCH (07:32)
[2025-06-22 08:07] LABS: Base Excess -7.2 mmol/L (-2.0-3.0)
--- NOTE | 2025-06-22 10:13 | DVHPN2 ---
Subjective Patient chemically sedated Reviewed: Care Plan, H&P, Labs, Medications, Previous Orders, Radiology Changes from previous H/P or p: No Changes General: Per HPI Eyes: No Pain, No Vision change, No Conjunctivae inflammation, No Eyelid inflammation, No Other, No Redness ENT: No Ear pain, No Ear discharge, No Nose pain, No Nose discharge, No Nose congestion, No Mouth pain, No Mouth swelling, No Throat pain, No Throat swelling, No Other Cardiovascular: No Chest Pain, No Palpitations, No Orthopnea, No Paroxysmal Noc. Dyspnea, No Edema, No Lt Headedness; Other (Hypotension) Respiratory: No Cough, No Dry; Shortness of breath; No SOB with excertion, No Wheezing, No Hemoptysis, No Pleuritic Pain, No Sputum, No Other Gastrointestinal: No Nausea, No Vomiting, No Abdominal Pain, No Diarrhea, No Constipation, No Melena, No Hematochezia, No Other Genitourinary: No Dysuria, No Frequency, No Incontinence, No Hematuria, No Retention, No Other Musculoskeletal: other (BKA (LLE), RLE toe amputation); No neck pain, No shoulder pain, No arm pain, No back pain, No hand pain, No leg pain, No foot pain Skin: No Rash, No Lesions, No Jaundice, No Bruising, No Other Objective Vitals Vital Signs Date Time Temp Pulse Resp B/P (MAP) Pulse Ox O2 Delivery O2 Flow Rate FiO2 06/22/25 08:42 87 24 122/61 (81) 100 30 06/22/25 06:15 98.6 209.5 06/22/25 06:00 Mechanical Ventilator+ 06/20/25 19:40 65 Intake/Output Intake and Output 06/22/25 07:00 Intake Total 3484.125 ml Output Total 3450 ml Balance 34.125 ml Intake Oral 40 ml IV Total 2932.125 ml Tube Feeding 512 ml Output Urine Total 3425 ml Gastric Drainage Total 25 ml General Appearance: moderate distress, Other (Chemically sedated) HEENT: Atraumatic, PERRLA Lungs: Other (Mechanical ventilation) Cardiovascular: Normal S1, Normal S2 Abdomen: Normal bowel sounds, Soft, No tenderness, No hepatospenomegaly Genitourinary: No Apparent Abnormalities (Garcia catheter) Musculoskeletal: Other (Unable to assess) Neuro: Other (Unable to assess) Skin: Other (Right foot gangrene. Status post surgery) Psych/Mental Status: Other (Unable to assess) Medications Current Medications Medications Dose Ordered Sig/Philip Route Start Time Stop Time Status Last Admin Dose Admin Norepinephrine Bitartrate 250 ml @ 3.75 mls/hr Q24H IV 06/18/25 14:45 06/22/25 01:26 3.75 MLS/HR Propofol 100 ml @ 1.95 mls/hr Q24H IV 06/18/25 14:45 06/22/25 05:17 9.75 MLS/HR Midazolam HCl 50 ml @ 1 mls/hr Q24H IV 06/18/25 14:45 06/22/25 01:26 5 MLS/HR Fentanyl Citrate 250 ml @ 2.5 mls/hr Q24H IV 06/18/25 14:45 06/22/25 06:04 2.5 MLS/HR Dextrose 50 ml UD PRN IV 06/18/25 17:00 Cancel Insulin Glargine 15 units DAILY SC 06/19/25 10:00 06/21/25 10:30 15 UNITS Vancomycin HCl 0 ml @ 0 mls/hr UD IV 06/18/25 20:30 Ondansetron HCl 4 mg Q4HP PRN IV 06/18/25 20:30 Nitroglycerin 0.4 mg Q5MINP PRN SL 06/18/25 20:30 Morphine Sulfate 2 mg Q30M PRN IV 06/18/25 20:30 Diagnostic Test (Pha) 1 strip Q6HR 06/21/25 12:00 06/22/25 06:04 1 STRIP Insulin Human Regular Q6HR SC 06/21/25 12:00 06/22/25 06:03 3 UNITS Dextrose 50 ml UD PRN IV 06/21/25 11:15 Pantoprazole Sodium 40 mg BID IV 06/21/25 22:00 06/21/25 21:51 40 MG Enteral Nutritional Formula 1,000 ml 30ML/HR GT 06/21/25 11:15 06/21/25 14:32 1,000 ML Cefepime HCl 50 ml @ 12.5 mls/hr Q12H IV 06/21/25 14:00 06/22/25 01:27 12.5 MLS/HR Potassium Chloride 100 ml @ 50 mls/hr Q2H IV 06/22/25 07:00 06/22/25 10:59 06/22/25 09:00 50 MLS/HR Sodium Chloride 1,000 ml @ 75 mls/hr [id number] IV 06/22/25 09:00 Vancomycin HCl 100 ml @ 200 mls/hr Q12H IV 06/22/25 12:00 UNV Laboratory Results Laboratory Tests 06/22/25 04:47 Chemistry Test 06/21/25 13:35 06/22/25 04:47 Albumin 2.6 g/dL (3.2-4.8) L 2.7 g/dL (3.2-4.8) L Calcium Level 7.6 mg/dL (8.7-10.4) L 7.6 mg/dL (8.7-10.4) L Magnesium Level 1.8 mg/dL (1.6-2.6) 1.7 mg/dL (1.6-2.6) Phosphorus Level 1.5 mg/dL (2.4-5.1) L 3.2 mg/dL (2.4-5.1) Total Protein 5.7 g/dL (5.7-8.2) 5.8 g/dL (5.7-8.2) LFT Test 06/21/25 13:35 06/22/25 04:47 Alanine Aminotransferase (ALT) 13 U/L (7-40) 11 U/L (7-40) Alkaline Phosphatase 211 U/L (46-116) H 353 U/L (46-116) H Aspartate Amino Transferase (AST) 24 U/L (13-40) 25 U/L (13-40) Total Bilirubin 0.4 mg/dL (0.2-1.0) 0.3 mg/dL (0.2-1.0) Urinalysis Test 06/18/25 13:37 Urine Color Light-yellow (Yellow) Urine Clarity Clear (Clear) Urine pH 5.5 (5.0-9.0) Urine Specific [place] 1.025 (1.001-1.035) Urine Protein Trace (Negative) H Urine Ketones 2+ (Negative) H Urine Blood Trace /uL (Negative) H Urine Nitrite Negative (Negative) Urine Bilirubin Negative (Negative) Urine Urobilinogen Normal mg/dL (Negative) Urine Leukocyte Esterase Negative /uL (Negative) Urine RBC 1 /hpf (0 - 3) Urine Microscopic WBC < 1 /HPF (0-3) Urine Squamous Epithelial Cells None seen /hpf (<5) Urine Bacteria Few /hpf (None Seen) H Urine Hyaline Casts Few /lpf (0 - 2) Urine Glucose 4+ mg/dL (Normal) H Blood Gas Results Test 06/22/25 07:56 Arterial Blood pH 7.372 (7.350-7.450) FiO2 % 30.0 Microbiology Microbiology Date/Time Source Procedure Growth Status 06/18/25 15:04 Sputum Gram Stain - Final Complete 06/18/25 15:04 Respiratory Culture - Final Klebsiella pneumoniae Leclercia adecarboxylata Enterobacter cloacae Citrobacter farmeri Complete 06/18/25 13:09 Blood Blood Culture - Preliminary NO GROWTH AFTER 72 HOURS OF INCUBATION. Resulted Labs and/or images reviewed: Labs reviewed by me, Image(s) reviewed by me Assessment/Plan Assessment/Plan Impression: -septic shock -right foot osteomyelitis -diabetic ketoacidosis -acute hypoxic respiratory failure -diabetes mellitus -primary hypertension -acute kidney injury Plan: -CT scan right foot : Reviewed. Podiatry consultation placed. -sodium bicarbonate IV push x1 -start Glucerna at 30 mL/hour -Protonix 40 mg IV b.i.d. -continue vancomycin, cefepime. Add Diflucan -rosales cultures: Respiratory cultures reviewed. -decrease IV fluids -continue current ventilator settings -repeat labs today -long discussion made with the patient's son who was bedside. Plan of care discussed. Critical care time spent with patient discussing and formulating plan of care: 90 minutes. This does not include time spent performing procedures. This medical document was created using an electronic medical record system with [employer] dictation system. Although this document has been carefully reviewed, there may still be some phonetic and typographical errors. These areas are purely typographical due to imperfections of the software programs, and do not reflect any compromise in the patient's medical care. Plan discussed with: Patient, Other (RN) My Orders Orders - MAINE VELAZCO EMERGENCY ROOM CLERK Procedure Category Date Status Time Chest Xray 1 View XY 06/21/25 Resulted 10:49 Ng/Orogastric Tube To FEDE 06/21/25 In Process LIS 11:08 Ct R Foot Wo Contrast CT 06/21/25 Resulted 11:12 Glucose Blood PHA 06/21/25 In Process (Accu-Chek Comfort 12:00 Insulin R (Human) PHA 06/21/25 In Process (Insulin R) 12:00 Dextrose 50% Syringe PHA 06/21/25 In Process 11:15 Pantoprazole PHA 06/21/25 In Process (Protonix) 22:00 Nutritional PHA 06/21/25 In Process Supplements (Glucerna 11:15 Cefepime 1gm/50ml PHA 06/21/25 In Process (Maxipime 1gm/50ml) 14:00 Mrsa Screen TANJA 06/22/25 In Process 00:36 Chest Xray 1 View XY 06/22/25 Resulted 04:00 Abg W/ Co-Ox RT 06/22/25 Logged 04:00 *Podiatry Consult CONS 06/22/25 Transmitted Musson(D[facility]) 08:51 Basic Metabolic Panel LAB 06/23/25 Verified 04:00 Magnesium LAB 06/23/25 Verified 04:00 Chest Portable XY 06/23/25 Logged 04:00 Abg W/ Co-Ox RT 06/23/25 Logged 04:00 Sod Chl 0.45% (Sodium PHA 06/22/25 In Process Chloride 0.45% Via 09:00 Complete Blood Count LAB 06/23/25 Verified 04:00 Erythrocyte LAB 06/22/25 Logged Sedimentation Rate 08:56 C-Reactive Protein LAB 06/22/25 Logged 08:56 Micafungin Sodium PHA 06/22/25 Transmitted (Mycamine) 10:15 Date of Service: Jun 22, 2025 Billing Provider: MAINE VELAZCO NP Common Visit Codes: [id number] CARE 30-74 MIN MAINE VELAZCO EMERGENCY ROOM CLERK Jun 22, 2025 10:13
[2025-06-22] MEDS: MICAFUNGIN SODIUM 100 MG in SODIUM CHL 0.9% 100 ML IV SCH (11:37)
[2025-06-22] MEDS: SOD CHL 0.45% 1,000 ML IV SCH (11:50)
[2025-06-22] MEDS: SODIUM BICARB 8.4% 50Meq/50ml SYR Vial IV ONE (11:54)
[2025-06-22] MEDS ORDERED: VANCOMYCIN 500mg/100mL 100 ML IV SCH (12:00)
--- NOTE | 2025-06-22 13:56 | DVHCONRES ---
Date Seen: Jun 22, 2025 Reason for Consultation Foot wound History of Present Illness The patient is a 70-year-old male with past medical history of dementia, diabetes mellitus, and hypertension who presented to [facility] ED with complaint of generalized weakness. Patient's condition progressively get w orse, alert oriented x1, so EMS were called. When EMS arrived on the scene, patient's blood sugar rate high, hypotensive, blood pressure 76/40, increased work of breathing, and was given IV fluid normal saline, oxygen O2 saturation at 96% EN route to our facility ED. patient was seen and evaluated in the ED, laboratory data shows WBC 26.7, platelets 568, sodium 126, potassium 5.5, BUN 43, creatinine 2 five eight, GFR 34, glucose 852, anion gap 26, acetone > 4.500, calcium 10.2 trending down to 8.4, troponin 31, blood pressure trending up to 134/63, heart rate 205 trending down to 116, temperature 98.5 F, O2 saturation 95% on oxygen. Patient was found to have diabetes with ketoacidosis, likely septic, hypoxic, life-threatening deterioration, and subsequently intubated. Chest x-ray revealing endotracheal tube tip remains low, proximally 0.2 cm above the level of the alexis, no evidence of acute cardiopulmonary process. Patient was started on IV antibiotic regimen vancomycin, on insulin drip, please see medication orders section in the computer. On my assessment, patient remains fully intubated, no diaphoresis, no diarrhea, no vomiting, no fever, no chills. Patient was admitted for further evaluation and medical management. Past Medical History See H&P Past Surgical History See H&P Family History: Diabetes mellitus G8 MOTHER G8 FATHER Hypertension G8 MOTHER G8 FATHER Allergies: Coded Allergies: NO KNOWN ALLERGIES (Unverified , 05/30/25) Home Meds Active Scripts Hydrocodone-Acetaminophen (Hydrocodone/Acetaminophen 5-325 mg) 1 Tab Tab, 1 TAB PO TIDP PRN for 7 Days, #21 TAB 0 Refills Prov:ELIAS BOB MD 06/09/25 Cephalexin (KEFLEX CAPSULE) 250 Mg Cp, 2 CAP PO BID for 14 Days, #56 CAP 0 Refills Prov:ELIAS BOB MD 06/09/25 Current Medications Current Medications Medications (Trade) Dose Ordered Sig/Philip Route PRN Reason Start Time Stop Time Status Last Admin Pantoprazole Sodium (Protonix) 40 mg BID IV 06/21/25 22:00 06/22/25 11:49 Cefepime HCl 50 ml @ 12.5 mls/hr Q12H IV 06/21/25 14:00 06/22/25 01:27 Potassium Chloride 100 ml @ 50 mls/hr Q2H IV 06/21/25 16:15 06/21/25 22:14 DC 06/21/25 19:13 Potassium Chloride 100 ml @ 50 mls/hr Q2H IV 06/22/25 07:00 06/22/25 10:59 DC 06/22/25 09:00 Magnesium Sulfate/ Dextrose 100 ml @ 100 mls/hr Q1HR IV 06/22/25 07:00 06/22/25 08:59 DC 06/22/25 08:39 Sodium Chloride 1,000 ml @ 75 mls/hr [id number] IV 06/22/25 09:00 06/22/25 11:50 Vancomycin HCl 100 ml @ 200 mls/hr Q12H IV 06/22/25 12:00 06/22/25 12:42 DC Micafungin Sodium 100 mg/Sodium Chloride 100 ml @ 100 mls/hr DAILY IV 06/22/25 10:15 06/22/25 11:37 Vancomycin HCl 100 ml @ 100 mls/hr Q12H IV 06/22/25 13:00 Vital Signs Vital Signs Date Time Temp Pulse Resp B/P (MAP) Pulse Ox O2 Delivery O2 Flow Rate FiO2 06/22/25 13:15 98.8 94 19 115/60 (78) 100 209.8 06/22/25 11:58 30 06/22/25 06:00 Mechanical Ventilator+ 06/20/25 19:40 65 Physical Exam Dermatological: Skin is dry with mild erythema and some maceration around the wound site No gross deformities noted Mild non-pitting edema present bilaterally Right foot gangrene with area of fluctuance cellulitis Vascular: Dorsalis pedis and posterior tibial pulses are 1+ bilaterally Capillary refill is under 2 seconds Skin temperature is warm bilaterally Neurologic: Protective sensation is absent on the plantar forefoot bilaterally Monofilament testing reveals decreased sensation in multiple plantar sites Musculoskeletal: Range of motion at the ankle and MTP joints is within normal limits. Strength is 5/5 in all tested muscle groups. Gait is antalgic due to offloading of the affected limb. Labs/Diagnostic Data Labs Test 06/22/25 13:21 06/22/25 12:22 06/22/25 07:56 06/22/25 04:47 Range/Units POC Glucose 199 H 70-106 mg/dl Blood Gas Specimen Type Arterial Blood Gas Sample Site Right brachial Blood Gas Patient Temperature 37.0 Arterial Blood Date Drawn [id number] Arterial Blood pH 7.372 7.350-7.450 Arterial Blood Partial Pressure CO2 29.8 L 35.0-48.0 mmHg Arterial Blood Partial Pressure O2 54.0 *L 83.0-108.0 mmHg Arterial Blood HCO3 16.9 L 21.0-28.0 mmol/L Arterial Blood Oxygen Saturation 88.7 L 94.0-98.0 % Arterial Blood Base Excess -7.2 L -2.0-3.0 mmol/L Arterial Blood Oxyhemoglobin 88.4 L 94.0-98.0 % Arterial Blood Carboxyhemoglobin 0.0 L 0.5-1.5 % Arterial Blood Methemoglobin 0.3 0.0-1.5 % Vicente Test N/a Blood Gas Total Hemoglobin 11.40 L 13.5-17.5 g/dL Blood Gas Set Respiration Rate 20.0 Blood Gas Modality Vent - ac FiO2 % 30.0 Blood Gas Tidal Volume 400.0 Blood Gas PEEP or CPAP 5.0 Blood Gas Critical Value Read Back Yes Blood Gas Notified Whom vicky Serrato np Blood Gas Notified Time [id number] Blood Gas Notified By hiro Butler rrt White Blood Count 32.1 *H 4.4-10.8 10^3/uL Red Blood Count 3.34 L 4.5-5.90 10^6/uL Hemoglobin 11.1 L 13.5-17.5 g/dL Hematocrit 31.8 L 41.0-53.0 % Mean Corpuscular Volume 95.3 80.0-100.0 fL Mean Corpuscular Hemoglobin 33.3 H 28.0-32.0 pg Mean Corpuscular Hemoglobin Concent 34.9 32.0-36.0 g/dL Red Cell Distribution Width 13.3 11.8-14.3 % Platelet Count 351 140-450 10^3/uL Mean Platelet Volume 8.8 6.9-10.8 fL Neutrophils (%) (Auto) 37.0-80.0 % Lymphocytes (%) (Auto) 10.0-50.0 % Monocytes (%) (Auto) 0.0-12.0 % Basophils (%) (Auto) 0.0-2.0 % Neutrophils # (Auto) 1.6-8.6 10 ^3/uL Lymphocytes # (Auto) 0.4-5.4 10 ^3/uL Monocytes # (Auto) 0-1.3 10 ^3/uL Differential Total Cells Counted 100.0 100 Neutrophils % (Manual) 89 H 37.0-80.0 Band Neutrophils % (Manual) 2 Lymphocytes % (Manual) 4 L 10.0-50.0 Monocytes % (Manual) 5 0-12 Eosinophils % (Manual) 0 0-7 Basophils % (Manual) 0 0.0-2.0 Metamyelocytes % (manual) 0 Myelocytes % (Manual) 0 Promyelocytes % (Manual) 0 Blast Cells % (Manual) 0 Reactive Lymphocytes 0 Platelet Estimate Adequate Sodium Level 145 136-145 mmol/L Chloride Level 116 H 98-107 mmol/L Carbon Dioxide Level 19 L 20-31 mmol/L Anion Gap 10 5-15 Blood Urea Nitrogen 10 9-23 mg/dL Creatinine 0.99 0.700-1.30 mg/dL Glomerular Filtration Rate Calc 82 >90 mL/min BUN/Creatinine Ratio 10.1 10.0-20.0 Serum Glucose 185 H 74-106 mg/dL Calcium Level 7.6 L 8.7-10.4 mg/dL Phosphorus Level 3.2 2.4-5.1 mg/dL Total Bilirubin 0.3 0.2-1.0 mg/dL Aspartate Amino Transferase (AST) 25 13-40 U/L Alanine Aminotransferase (ALT) 11 7-40 U/L Alkaline Phosphatase 353 H 46-116 U/L Total Protein 5.8 5.7-8.2 g/dL Albumin 2.7 L 3.2-4.8 g/dL Random Vancomycin Level 17.5 H 5-10 ug/mL Test 06/21/25 13:35 06/19/25 07:36 06/18/25 16:25 06/18/25 15:25 Range/Units Eosinophils (%) (Auto) 0.8 0.0-7.0 % Eosinophils # (Auto) 0.2 0-0.8 10 ^3/uL Basophils # (Auto) 0 0-0.2 10 ^3/uL Nucleated Red Blood Cells 0.0 % Beta-Hydroxybutyric Acid 0.292 < 0.4 mmol/L Influenza Type A Antigen Negative Negative Influenza Type B Antigen Negative Negative SARS-CoV-2 Antigen (Rapid) Positive *A NEGATIVE Troponin I High Sensitivity 55 *H </=54 ng/L Lactic Acid Level 2.3 *H 0.4-2.0 mmol/L Test 06/18/25 13:37 06/18/25 13:09 Range/Units Urine Color Light-yellow Yellow Urine Clarity Clear Clear Urine pH 5.5 5.0-9.0 Urine Specific [place] 1.025 1.001-1.035 Urine Protein Trace H Negative Urine Ketones 2+ H Negative Urine Blood Trace H Negative /uL Urine Nitrite Negative Negative Urine Bilirubin Negative Negative Urine Urobilinogen Normal Negative mg/dL Urine Leukocyte Esterase Negative Negative /uL Urine RBC 1 0 - 3 /hpf Urine Microscopic WBC < 1 0-3 /HPF Urine Squamous Epithelial Cells None seen <5 /hpf Urine Bacteria Few H None Seen /hpf Urine Hyaline Casts Few 0 - 2 /lpf Urine Glucose 4+ H Normal mg/dL Hypochromasia (manual) Slight Anisocytosis (manual) Slight Macrocytosis Marked Microbiology Date/Time Source Procedure Growth Status 06/22/25 00:10 Nose MRSA Screen - Final Complete 06/18/25 15:04 Sputum Gram Stain - Final Complete 06/18/25 15:04 Respiratory Culture - Final Klebsiella pneumoniae Leclercia adecarboxylata Enterobacter cloacae Citrobacter farmeri Complete 06/18/25 13:09 Blood Blood Culture - Preliminary NO GROWTH AFTER 72 HOURS OF INCUBATION. Resulted Problems(with codes): (1) Cholelithiasis (2) Cellulitis of right foot (3) IVC thrombosis (4) Generalized abdominal pain (5) Dry gangrene (6) Sepsis (7) DKA (diabetic ketoacidosis) (8) Acute metabolic encephalopathy (9) Diabetes with ketoacidosis (10) Generalized weakness (11) Type 2 diabetes mellitus with hyperglycemia (12) Metabolic encephalopathy (13) Sepsis, unspecified organism (14) Severe sepsis with septic shock Plan/Recommendation ASSESSMENT: Patient is a 70 year old seen on the floor for a worsening ulcer PLAN: - The patients chart was reviewed, clinical findings were discussed with the patient, the etiologies of the conditions were discussed in detail, and a treatment plan was agreed to at this time, with both oral and written instructions provided. - reviewed advanced imaging - prior previous amputation prognosis with a low as blood flow was inadequate - recommend vascular surgery consult - patient likely need [id number] amputation or higher if unable to have adequate flow for the incision - no surgical intervention recommended from Podiatry as patient needs higher amputation All questions were answered and concerns addressed to the patient's satisfaction. The patient was given the phone number to the clinic and was told how to make contact with the clinic should any concerns or questions arise. Patient understands that if any questions or concerns arise prior to the next appointment, we should be contacted immediately. FOLLOW-UP: Continue to follow while inpatient Plan discussed with: Other Visit Coding Podiatry Date of Service if different f: Jun 22, 2025 Billing Provider: VIRGINIA FREY DPM Podiatry Common Visit Codes: CONSULT ONLY Podiatry Consult Codes: [id number] NEW/EST HI 80 VIRGINIA FREY DPM Jun 22, 2025 13:56
[2025-06-22 13:58] LABS: Potassium 3.4 mmol/L (3.5-5.1)
[2025-06-22 14:05] LABS: Magnesium 2.3 mg/dL (1.6-2.6)
[2025-06-22] MEDS: VANCOMYCIN 750mg/100mL IV SCH (16:33)
--- NOTE | 2025-06-22 16:43 | DVHPN2 ---
Progress Note - Dictate Date Seen: Jun 22, 2025 Medical Necessity Reason Pt with a Central, PICC or Fol: No Subjective laying in bed vital signs Vital Sign Date Time Temp Pulse Resp B/P (MAP) Pulse Ox O2 Delivery O2 Flow Rate FiO2 06/22/25 16:09 95 26 106/55 (72) 100 30 06/22/25 13:15 98.8 209.8 06/22/25 08:00 Mechanical Ventilator+ 06/20/25 19:40 65 Total Intake and Output 06/21/25 06/21/25 06/22/25 15:00 23:00 07:00 Intake Total 1106.575 ml 1059.25 ml 1336.55 ml Output Total 1300 ml 1025 ml 1125 ml Balance -193.425 ml 34.25 ml 211.55 ml medications Current Medications Medications Dose Ordered Sig/Philip Route Start Time Stop Time Status Last Admin Dose Admin Norepinephrine Bitartrate 250 ml @ 3.75 mls/hr Q24H IV 06/18/25 14:45 06/22/25 01:26 3.75 MLS/HR Propofol 100 ml @ 1.95 mls/hr Q24H IV 06/18/25 14:45 06/22/25 05:17 9.75 MLS/HR Midazolam HCl 50 ml @ 1 mls/hr Q24H IV 06/18/25 14:45 06/22/25 01:26 5 MLS/HR Fentanyl Citrate 250 ml @ 2.5 mls/hr Q24H IV 06/18/25 14:45 06/22/25 06:04 2.5 MLS/HR Dextrose 50 ml UD PRN IV 06/18/25 17:00 Cancel Insulin Glargine 15 units DAILY SC 06/19/25 10:00 06/22/25 11:44 15 UNITS Vancomycin HCl 0 ml @ 0 mls/hr UD IV 06/18/25 20:30 Ondansetron HCl 4 mg Q4HP PRN IV 06/18/25 20:30 Nitroglycerin 0.4 mg Q5MINP PRN SL 06/18/25 20:30 Morphine Sulfate 2 mg Q30M PRN IV 06/18/25 20:30 Diagnostic Test (Pha) 1 strip Q6HR 06/21/25 12:00 06/22/25 12:25 1 STRIP Insulin Human Regular Q6HR SC 06/21/25 12:00 06/22/25 12:26 3 UNITS Dextrose 50 ml UD PRN IV 06/21/25 11:15 Pantoprazole Sodium 40 mg BID IV 06/21/25 22:00 06/22/25 11:49 40 MG Enteral Nutritional Formula 1,000 ml 30ML/HR GT 06/21/25 11:15 06/21/25 14:32 1,000 ML Cefepime HCl 50 ml @ 12.5 mls/hr Q12H IV 06/21/25 14:00 06/22/25 16:33 12.5 MLS/HR Sodium Chloride 1,000 ml @ 75 mls/hr [id number] IV 06/22/25 09:00 06/22/25 11:50 75 MLS/HR Micafungin Sodium 100 mg/Sodium Chloride 100 ml @ 100 mls/hr DAILY IV 06/22/25 10:15 06/22/25 11:37 100 MLS/HR Vancomycin HCl 100 ml @ 100 mls/hr Q12H IV 06/22/25 13:00 06/22/25 16:33 100 MLS/HR objective HEENT: Normocephalic, no JVD Lungs: Bilateral good air entry CVS: S1, S2 regular rate rhythm Abdomen: Soft, bowel sounds present PHYSICS TUTOR: no focal deficits Extremities: no edema laboratory and microbiology Laboratory Tests 06/22/25 13:21 06/22/25 04:47 Test 06/22/25 04:47 Range/Units Serum Glucose 185 H 74-106 mg/dL Assessment/Plan Acute kidney injury secondary to osmotic diuresis due to hyperglycemia Acute hypoxic respiratory failure s/p intubation on mechanical ventilator Shock probably secondary to sepsis, resolved Diabetic ketoacidosis, s/p insulin drip High anion gap metabolic acidosis secondary to DKA Hypokalemia Hypophosphatemia Assessment/Plan GFR improving Excellent urine output. Continue NS at 75 cc/h Supplement K phosphate Vent management per Pulmonary. Labs in a.m. Plan discussed with: Patient, Other RAUL SINGH MD Jun 22, 2025 16:43
--- NOTE | 2025-06-22 17:11 | DVHPN2 ---
Progress Note - Dictate Date Seen: Jun 22, 2025 Medical Necessity Reason Pt with a Central, PICC or Fol: No vital signs Vital Sign Date Time Temp Pulse Resp B/P (MAP) Pulse Ox O2 Delivery O2 Flow Rate FiO2 06/22/25 16:09 95 26 106/55 (72) 100 30 06/22/25 13:15 98.8 209.8 06/22/25 08:00 Mechanical Ventilator+ 06/20/25 19:40 65 Total Intake and Output 06/21/25 06/21/25 06/22/25 15:00 23:00 07:00 Intake Total 1106.575 ml 1059.25 ml 1336.55 ml Output Total 1300 ml 1025 ml 1125 ml Balance -193.425 ml 34.25 ml 211.55 ml medications Current Medications Medications Dose Ordered Sig/Philip Route Start Time Stop Time Status Last Admin Dose Admin Norepinephrine Bitartrate 250 ml @ 3.75 mls/hr Q24H IV 06/18/25 14:45 06/22/25 01:26 3.75 MLS/HR Propofol 100 ml @ 1.95 mls/hr Q24H IV 06/18/25 14:45 06/22/25 05:17 9.75 MLS/HR Midazolam HCl 50 ml @ 1 mls/hr Q24H IV 06/18/25 14:45 06/22/25 01:26 5 MLS/HR Fentanyl Citrate 250 ml @ 2.5 mls/hr Q24H IV 06/18/25 14:45 06/22/25 06:04 2.5 MLS/HR Dextrose 50 ml UD PRN IV 06/18/25 17:00 Cancel Insulin Glargine 15 units DAILY SC 06/19/25 10:00 06/22/25 11:44 15 UNITS Vancomycin HCl 0 ml @ 0 mls/hr UD IV 06/18/25 20:30 Ondansetron HCl 4 mg Q4HP PRN IV 06/18/25 20:30 Nitroglycerin 0.4 mg Q5MINP PRN SL 06/18/25 20:30 Morphine Sulfate 2 mg Q30M PRN IV 06/18/25 20:30 Diagnostic Test (Pha) 1 strip Q6HR 06/21/25 12:00 06/22/25 12:25 1 STRIP Insulin Human Regular Q6HR SC 06/21/25 12:00 06/22/25 12:26 3 UNITS Dextrose 50 ml UD PRN IV 06/21/25 11:15 Pantoprazole Sodium 40 mg BID IV 06/21/25 22:00 06/22/25 11:49 40 MG Enteral Nutritional Formula 1,000 ml 30ML/HR GT 06/21/25 11:15 06/21/25 14:32 1,000 ML Cefepime HCl 50 ml @ 12.5 mls/hr Q12H IV 06/21/25 14:00 06/22/25 16:33 12.5 MLS/HR Sodium Chloride 1,000 ml @ 75 mls/hr [id number] IV 06/22/25 09:00 06/22/25 11:50 75 MLS/HR Micafungin Sodium 100 mg/Sodium Chloride 100 ml @ 100 mls/hr DAILY IV 06/22/25 10:15 06/22/25 11:37 100 MLS/HR Vancomycin HCl 100 ml @ 100 mls/hr Q12H IV 06/22/25 13:00 06/22/25 16:33 100 MLS/HR laboratory and microbiology Laboratory Tests 06/22/25 13:21 06/22/25 04:47 Test 06/22/25 04:47 Range/Units Serum Glucose 185 H 74-106 mg/dL Assessment/Plan Impression Acute hypoxemic respiratory failure Altered mental status pneumonia covid 19 Hyperglycemia DKA Patient seen and examined in the ICU Events On mechanical ventilation S/p intubation PEEP 5, FiO2 30% Labs and imaging reviewed ABG reviewed compensated Management Vent support Titrate to maintain sats 90% or above Sedation holiday in am weaning trial ok to use precedex Continue antibiotics F/u cultures Bronchodilators withold steroids in view poorly controlled DM CXR clear lungs Monitor renal function Monitor electrolytes Supplement as needed Pressors as needed for hemodynamic support To maintain a mean arterial pressure of 65 mmHg Glycemic control IV fluids DVT prophylaxis Critical care time 35 minutes Plan discussed with: Other (rn) BANDAR CARTWRIGHT MD Jun 22, 2025 17:11
[2025-06-22] MEDS: POTASSIUM CHL 20MEQ/100ML 100 ML IV ONE (21:31)
[2025-06-23] VITALS (107 sets, daily range): BP systolic 83–166; BP diastolic 43–83; PULSE 64–95; RESP 15–33; TEMP 97–99.5; O2SAT 73–100
[2025-06-23 05:20] LABS: Sodium 144 mmol/L (136-145)
[2025-06-23 05:21] LABS: Anion Gap 10 (5-15); Carbon Dioxide 21 mmol/L (20-31); Hemoglobin 10.5 g/dL (13.5-17.5)
[2025-06-23 05:26] LABS: BUN/Creatinine Ratio 9.9 (10.0-20.0); Blood Urea Nitrogen 10 mg/dL (9-23); Hematocrit 29.6 % (41.0-53.0); Mean Corpuscular Hemoglobin 33.6 pg (28.0-32.0); Mean Corpuscular Volume 94.4 fL (80.0-100.0)
[2025-06-23 05:27] LABS: Calcium 7.6 mg/dL (8.7-10.4); Chloride 113 mmol/L (98-107); Glucose 173 mg/dL (74-106); Magnesium 2.1 mg/dL (1.6-2.6); Potassium 3.3 mmol/L (3.5-5.1)
[2025-06-23 06:19] LABS: Total Cells Counted 100.0 (100)
--- NOTE | 2025-06-23 07:16 | DVHPN2 ---
Progress Note - Dictate Date Seen: Jun 23, 2025 Medical Necessity Reason Pt with a Central, PICC or Fol: No Subjective sedated and intubated vital signs Vital Sign Date Time Temp Pulse Resp B/P (MAP) Pulse Ox O2 Delivery O2 Flow Rate FiO2 06/23/25 06:44 119/59 06/23/25 06:30 98.8 83 20 100 209.8 06/23/25 06:01 30 06/23/25 06:00 Mechanical Ventilator+ Total Intake and Output 06/22/25 06/22/25 06/23/25 14:59 22:59 06:59 Intake Total 733.50 ml 1169.75 ml 563.00 ml Output Total 750 ml Balance 733.50 ml 419.75 ml 563.00 ml medications Current Medications Medications Dose Ordered Sig/Philip Route Start Time Stop Time Status Last Admin Dose Admin Norepinephrine Bitartrate 250 ml @ 3.75 mls/hr Q24H IV 06/18/25 14:45 06/22/25 01:26 3.75 MLS/HR Propofol 100 ml @ 1.95 mls/hr Q24H IV 06/18/25 14:45 06/23/25 06:44 9.75 MLS/HR Midazolam HCl 50 ml @ 1 mls/hr Q24H IV 06/18/25 14:45 06/23/25 01:16 6 MLS/HR Fentanyl Citrate 250 ml @ 2.5 mls/hr Q24H IV 06/18/25 14:45 06/22/25 06:04 2.5 MLS/HR Dextrose 50 ml UD PRN IV 06/18/25 17:00 Cancel Insulin Glargine 15 units DAILY SC 06/19/25 10:00 06/22/25 11:44 15 UNITS Vancomycin HCl 0 ml @ 0 mls/hr UD IV 06/18/25 20:30 Ondansetron HCl 4 mg Q4HP PRN IV 06/18/25 20:30 Nitroglycerin 0.4 mg Q5MINP PRN SL 06/18/25 20:30 Morphine Sulfate 2 mg Q30M PRN IV 06/18/25 20:30 Diagnostic Test (Pha) 1 strip Q6HR 06/21/25 12:00 06/23/25 04:56 1 STRIP Insulin Human Regular Q6HR SC 06/21/25 12:00 06/23/25 05:09 3 UNITS Dextrose 50 ml UD PRN IV 06/21/25 11:15 Pantoprazole Sodium 40 mg BID IV 06/21/25 22:00 06/22/25 21:31 40 MG Cefepime HCl 50 ml @ 12.5 mls/hr Q12H IV 06/21/25 14:00 06/23/25 02:34 12.5 MLS/HR Micafungin Sodium 100 mg/Sodium Chloride 100 ml @ 100 mls/hr DAILY IV 06/22/25 10:15 06/22/25 11:37 100 MLS/HR Vancomycin HCl 100 ml @ 100 mls/hr Q12H IV 06/22/25 13:00 06/23/25 00:47 100 MLS/HR Enteral Nutritional Formula 1,000 ml 50ML/HR GT 06/23/25 07:00 Potassium Chloride/Sodium Chloride 1,000 ml @ 75 mls/hr [id number] IV 06/23/25 07:00 objective Gen: Sedated and intubated HEENT: Normocephalic, no JVD Lungs: Bilateral good air entry CVS: S1, S2 regular rate rhythm Abdomen: Soft, bowel sounds present PIECER: no focal deficits Extremities: no edema laboratory and microbiology Laboratory Tests 06/23/25 04:39 Test 06/23/25 04:39 Range/Units Serum Glucose 173 H 74-106 mg/dL Assessment/Plan Acute kidney injury secondary to osmotic diuresis due to hyperglycemia Acute hypoxic respiratory failure s/p intubation on mechanical ventilator Septic shock Right foot osteomyelitis Diabetic ketoacidosis, s/p insulin drip High anion gap metabolic acidosis secondary to DKA Hypokalemia Hypophosphatemia Assessment/Plan GFR improving Excellent urine output. IVF was changed to 1/2 NS + 20 mEq sodium bicarb at 75 cc/h Supplement K phosphate Vent management per Pulmonary. vasopressors to maintain MAP > 65 mmHg Podiatry consult Daily BMP Strict I&Os Plan discussed with: RAUL Beck MD Jun 23, 2025 07:15
--- NOTE | 2025-06-23 07:58 | DVH ---
CHEST RADIOGRAPH Indication: pna Technique: Single frontal view of the chest was obtained Comparison: XY CHEST XRAY 1 VIEW on DOS: 06/22/25 FINDINGS: Lines and Tubes: The endotracheal tube terminates 2.9 cm above the alexis. The enteric tube courses b elow the left hemidiaphragm and the tip extends outside the field of view. There is a right central v enous catheter with its tip terminating in the right atrium. Lungs: Mild bilateral opacities similar to prior study. Pleura: No effusion. No pneumothorax. Cardiomediastinal contours: Unremarkable Bones: No acute osseous abnormality. IMPRESSION: 1. Support tubes as described. 2. Mild bilateral pulmonary opacities.
[2025-06-23] MEDS: SOD CHL 0.45% WITH 20MEQ KCL 1,000 ML IV SCH (08:00)
--- NOTE | 2025-06-23 08:09 | DVHPN2 ---
Subjective Patient chemically sedated Reviewed: Care Plan, H&P, Labs, Medications, Previous Orders, Radiology Changes from previous H/P or p: No Changes General: Per HPI Eyes: No Pain, No Vision change, No Conjunctivae inflammation, No Eyelid inflammation, No Other, No Redness ENT: No Ear pain, No Ear discharge, No Nose pain, No Nose discharge, No Nose congestion, No Mouth pain, No Mouth swelling, No Throat pain, No Throat swelling, No Other Cardiovascular: No Chest Pain, No Palpitations, No Orthopnea, No Paroxysmal Noc. Dyspnea, No Edema, No Lt Headedness; Other (Hypotension) Respiratory: No Cough, No Dry; Shortness of breath; No SOB with excertion, No Wheezing, No Hemoptysis, No Pleuritic Pain, No Sputum, No Other Gastrointestinal: No Nausea, No Vomiting, No Abdominal Pain, No Diarrhea, No Constipation, No Melena, No Hematochezia, No Other Genitourinary: No Dysuria, No Frequency, No Incontinence, No Hematuria, No Retention, No Other Musculoskeletal: other (BKA (LLE), RLE toe amputation); No neck pain, No shoulder pain, No arm pain, No back pain, No hand pain, No leg pain, No foot pain Skin: No Rash, No Lesions, No Jaundice, No Bruising, No Other Objective Vitals Vital Signs Date Time Temp Pulse Resp B/P (MAP) Pulse Ox O2 Delivery O2 Flow Rate FiO2 06/23/25 06:44 119/59 06/23/25 06:30 98.8 83 20 100 209.8 06/23/25 06:01 30 06/23/25 06:00 Mechanical Ventilator+ Intake/Output Intake and Output 06/23/25 07:00 Intake Total 2444.25 ml Output Total 750 ml Balance 1694.25 ml Intake Oral 300 ml IV Total 1844.25 ml Tube Feeding 300 ml Output Urine Total 750 ml General Appearance: moderate distress, Other (Chemically sedated) HEENT: Atraumatic, PERRLA Lungs: Other (Mechanical ventilation) Cardiovascular: Normal S1, Normal S2 Abdomen: Normal bowel sounds, Soft, No tenderness, No hepatospenomegaly Genitourinary: No Apparent Abnormalities (Garcia catheter) Musculoskeletal: Other (Unable to assess) Extremities: Normal pulses, Other (Right foot with worsening gangrene) Neuro: Other (Unable to assess) Skin: Other (Right foot gangrene. Status post surgery) Psych/Mental Status: Other (Unable to assess) Medications Current Medications Medications Dose Ordered Sig/Philip Route Start Time Stop Time Status Last Admin Dose Admin Norepinephrine Bitartrate 250 ml @ 3.75 mls/hr Q24H IV 06/18/25 14:45 06/22/25 01:26 3.75 MLS/HR Propofol 100 ml @ 1.95 mls/hr Q24H IV 06/18/25 14:45 06/23/25 06:44 9.75 MLS/HR Midazolam HCl 50 ml @ 1 mls/hr Q24H IV 06/18/25 14:45 06/23/25 01:16 6 MLS/HR Fentanyl Citrate 250 ml @ 2.5 mls/hr Q24H IV 06/18/25 14:45 06/22/25 06:04 2.5 MLS/HR Dextrose 50 ml UD PRN IV 06/18/25 17:00 Cancel Insulin Glargine 15 units DAILY SC 06/19/25 10:00 06/22/25 11:44 15 UNITS Vancomycin HCl 0 ml @ 0 mls/hr UD IV 06/18/25 20:30 Ondansetron HCl 4 mg Q4HP PRN IV 06/18/25 20:30 Nitroglycerin 0.4 mg Q5MINP PRN SL 06/18/25 20:30 Morphine Sulfate 2 mg Q30M PRN IV 06/18/25 20:30 Diagnostic Test (Pha) 1 strip Q6HR 06/21/25 12:00 06/23/25 04:56 1 STRIP Insulin Human Regular Q6HR SC 06/21/25 12:00 06/23/25 05:09 3 UNITS Dextrose 50 ml UD PRN IV 06/21/25 11:15 Pantoprazole Sodium 40 mg BID IV 06/21/25 22:00 06/22/25 21:31 40 MG Cefepime HCl 50 ml @ 12.5 mls/hr Q12H IV 06/21/25 14:00 06/23/25 02:34 12.5 MLS/HR Micafungin Sodium 100 mg/Sodium Chloride 100 ml @ 100 mls/hr DAILY IV 06/22/25 10:15 06/22/25 11:37 100 MLS/HR Vancomycin HCl 100 ml @ 100 mls/hr Q12H IV 06/22/25 13:00 06/23/25 00:47 100 MLS/HR Enteral Nutritional Formula 1,000 ml 50ML/HR GT 06/23/25 07:00 Potassium Chloride/Sodium Chloride 1,000 ml @ 75 mls/hr [id number] IV 06/23/25 07:00 Laboratory Results Laboratory Tests 06/23/25 04:39 Chemistry Test 06/22/25 13:21 06/23/25 04:39 Magnesium Level 2.3 mg/dL (1.6-2.6) 2.1 mg/dL (1.6-2.6) Calcium Level 7.6 mg/dL (8.7-10.4) L Urinalysis Test 06/18/25 13:37 Urine Color Light-yellow (Yellow) Urine Clarity Clear (Clear) Urine pH 5.5 (5.0-9.0) Urine Specific Deal 1.025 (1.001-1.035) Urine Protein Trace (Negative) H Urine Ketones 2+ (Negative) H Urine Blood Trace /uL (Negative) H Urine Nitrite Negative (Negative) Urine Bilirubin Negative (Negative) Urine Urobilinogen Normal mg/dL (Negative) Urine Leukocyte Esterase Negative /uL (Negative) Urine RBC 1 /hpf (0 - 3) Urine Microscopic WBC < 1 /HPF (0-3) Urine Squamous Epithelial Cells None seen /hpf (<5) Urine Bacteria Few /hpf (None Seen) H Urine Hyaline Casts Few /lpf (0 - 2) Urine Glucose 4+ mg/dL (Normal) H Microbiology Microbiology Date/Time Source Procedure Growth Status 06/22/25 00:10 Nose MRSA Screen - Final Complete 06/18/25 15:04 Sputum Gram Stain - Final Complete 06/18/25 15:04 Respiratory Culture - Final Klebsiella pneumoniae Leclercia adecarboxylata Enterobacter cloacae Citrobacter farmeri Complete 06/18/25 13:09 Blood Blood Culture - Preliminary NO GROWTH AFTER 72 HOURS OF INCUBATION. Resulted Labs and/or images reviewed: Labs reviewed by me, Image(s) reviewed by me Assessment/Plan Assessment/Plan Impression: -septic shock -right foot osteomyelitis -diabetic ketoacidosis -acute hypoxic respiratory failure -diabetes mellitus -primary hypertension -acute kidney injury Plan: Events: Patient continues to have elevated white blood cell count despite broad coverage. Right foot with worsening gangrene. Pending podiatry consultation. -Glucerna 50 mL/hour -Protonix 40 mg IV b.i.d. -continue vancomycin, cefepime, Diflucan -rosales cultures: Respiratory cultures reviewed. -decrease IV fluids -continue current ventilator settings -repeat labs, chest x-ray, ABG in a.m.. -discussed plan of care with the patient's son yesterday. This includes the need to re-evaluate being placed on hospice if full cares to be provided for the patient's osteomyelitis after hospitalization. Critical care time spent with patient discussing and formulating plan of care: 90 minutes. This does not include time spent performing procedures. This medical document was created using an electronic medical record system with [employer] dictation system. Although this document has been carefully reviewed, there may still be some phonetic and typographical errors. These areas are purely typographical due to imperfections of the software programs, and do not reflect any compromise in the patient's medical care. Plan discussed with: Patient, Son, Other (RN) My Orders Orders - MAINE VELAZCO PICK UP ATTENDANT Procedure Category Date Status Time *Podiatry Consult CONS 06/22/25 Transmitted Musson([facility]) 08:51 Chest Portable XY 06/23/25 Resulted 04:00 Abg W/ Co-Ox RT 06/23/25 Logged 04:00 Micafungin Sodium PHA 06/22/25 In Process (Mycamine) 10:15 * Dietary Consult CONS 06/22/25 Transmitted 15:08 Apply/Change Dressing FEDE 06/22/25 In Process 10:42 Nutritional PHA 06/23/25 In Process Supplements (Glucerna 07:00 Sod Chl 0.45% With PHA 06/23/25 In Process 20meq Kcl 07:00 Basic Metabolic Panel LAB 06/24/25 Verified 05:00 Basic Metabolic Panel LAB 06/25/25 Verified 05:00 Basic Metabolic Panel LAB 06/26/25 Verified 05:00 Magnesium LAB 06/24/25 Verified 05:00 Magnesium LAB 06/25/25 Verified 05:00 Magnesium LAB 06/26/25 Verified 05:00 Chest Portable XY 06/24/25 Logged 05:00 Chest Portable XY 06/25/25 Logged 05:00 Chest Portable XY 06/26/25 Logged 05:00 Date of Service: Jun 23, 2025 Billing Provider: MAINE VELAZCO NP Common Visit Codes: 07232-[id number] CARE 30-74 MIN, [id number] CARE-EACH +30MIN MAINE VELAZCO NP Jun 23, 2025 08:08
[2025-06-23] MEDS: POTASSIUM EFFERVESENT TAB 25 MEQ GT ONE (08:11)
[2025-06-23 09:07] LABS: Base Excess -2.8 mmol/L (-2.0-3.0)
--- NOTE | 2025-06-23 10:56 | MEDREC ---
[facility] ASP Intervention Section I [facility] ASP Intervention: Deescalate AB based on CS (MRSA (-), sputum culture does not show Staph. Aureus. Please consider d/c vancomycin ) MISSY PEREZ [facility] RESIDENT Jun 23, 2025 10:56
--- NOTE | 2025-06-23 19:45 | DVHPN2 ---
Progress Note - Dictate Date Seen: Jun 23, 2025 Medical Necessity Reason Pt with a Central, PICC or Fol: No vital signs Vital Sign Date Time Temp Pulse Resp B/P (MAP) Pulse Ox O2 Delivery O2 Flow Rate FiO2 06/23/25 18:15 99.0 69 20 113/60 (77) 97 210.2 06/23/25 18:00 30 06/23/25 18:00 Mechanical Ventilator+ Total Intake and Output 06/22/25 06/22/25 06/23/25 15:00 23:00 07:00 Intake Total 806.00 ml 1101.00 ml 557.25 ml Output Total 750 ml Balance 806.00 ml 351.00 ml 557.25 ml medications Current Medications Medications Dose Ordered Sig/Philip Route Start Time Stop Time Status Last Admin Dose Admin Norepinephrine Bitartrate 250 ml @ 3.75 mls/hr Q24H IV 06/18/25 14:45 06/23/25 14:40 7.5 MLS/HR Propofol 100 ml @ 1.95 mls/hr Q24H IV 06/18/25 14:45 06/23/25 06:44 9.75 MLS/HR Midazolam HCl 50 ml @ 1 mls/hr Q24H IV 06/18/25 14:45 06/23/25 14:41 7 MLS/HR Fentanyl Citrate 250 ml @ 2.5 mls/hr Q24H IV 06/18/25 14:45 06/23/25 15:59 10 MLS/HR Dextrose 50 ml UD PRN IV 06/18/25 17:00 Cancel Insulin Glargine 15 units DAILY SC 06/19/25 10:00 06/23/25 09:04 15 UNITS Vancomycin HCl 0 ml @ 0 mls/hr UD IV 06/18/25 20:30 Ondansetron HCl 4 mg Q4HP PRN IV 06/18/25 20:30 Nitroglycerin 0.4 mg Q5MINP PRN SL 06/18/25 20:30 Morphine Sulfate 2 mg Q30M PRN IV 06/18/25 20:30 Diagnostic Test (Pha) 1 strip Q6HR 06/21/25 12:00 06/23/25 17:17 1 STRIP Insulin Human Regular Q6HR SC 06/21/25 12:00 06/23/25 12:37 2 UNITS Dextrose 50 ml UD PRN IV 06/21/25 11:15 Pantoprazole Sodium 40 mg BID IV 06/21/25 22:00 06/23/25 08:11 40 MG Cefepime HCl 50 ml @ 12.5 mls/hr Q12H IV 06/21/25 14:00 06/23/25 15:58 12.5 MLS/HR Micafungin Sodium 100 mg/Sodium Chloride 100 ml @ 100 mls/hr DAILY IV 06/22/25 10:15 06/23/25 10:46 100 MLS/HR Vancomycin HCl 100 ml @ 100 mls/hr Q12H IV 06/22/25 13:00 06/23/25 14:43 100 MLS/HR Enteral Nutritional Formula 1,000 ml 50ML/HR GT 06/23/25 07:00 Potassium Chloride/Sodium Chloride 1,000 ml @ 75 mls/hr [id number] IV 06/23/25 07:00 06/23/25 08:00 75 MLS/HR laboratory and microbiology Laboratory Tests 06/23/25 04:39 Test 06/23/25 04:39 Range/Units Serum Glucose 173 H 74-106 mg/dL Assessment/Plan Impression Acute hypoxemic respiratory failure Altered mental status pneumonia covid 19 Hyperglycemia DKA Patient seen and examined in the ICU Events On mechanical ventilation S/p intubation PEEP 5, FiO2 30% Labs and imaging reviewed ABG reviewed Management Vent support Titrate to maintain sats 90% or above Sedation holiday daily weaning trial ok to use precedex Continue antibiotics F/u cultures Bronchodilators withold steroids in view poorly controlled DM CXR clear lungs Monitor renal function Monitor electrolytes Supplement as needed Pressors as needed for hemodynamic support To maintain a mean arterial pressure of 65 mmHg Glycemic control IV fluids DVT prophylaxis Critical care time 35 minutes Dietary Evaluation Review Comments: 1. glucerna 50/hr, along with Propofol 257kcal provide 100% Protein needs and 128% energy needs. Adding Ryder BID will promote wound healing. 2. Continure TF protocol, 3. Reassess when pt is extubated 4. Advance to CCHO-60 diet when pt passes OUTSOLE SPLICER eval. Expected Outcomes/Goals: gradually healed wound, Avoid catabolic syndrome Plan discussed with: Other (Rn) BANDAR CARTWRIGHT MD Jun 23, 2025 19:45
[2025-06-24] VITALS (105 sets, daily range): BP systolic 76–163; BP diastolic 42–83; PULSE 67–84; RESP 13–29; TEMP 97.7–99; O2SAT 95–100
--- NOTE | 2025-06-24 05:32 | DVH ---
CHEST RADIOGRAPH Indication: pna Technique: Single frontal view of the chest was obtained COMPARISON: XY CHEST PORTABLE on DOS: 06/23/25, XY CHEST XRAY 1 VIEW on DOS: 06/22/25, XY CHEST XRAY 1 V IEW on DOS: 06/21/25, XY CHEST XRAY 1 VIEW on DOS: 06/20/25, XY CHEST PORTABLE on DOS: 06/19/25 FINDINGS: Lines and Tubes: Endotracheal tube, enteric catheter and right central venous catheter in satisfactor y position. Lungs: Congestion. Pleura: No effusion. No pneumothorax. Cardiomediastinal contours: Unremarkable Bones: Unremarkable IMPRESSION: Lines and tubes in satisfactory position. No significant interval change.
[2025-06-24 05:59] LABS: Anion Gap 12 (5-15); Carbon Dioxide 21 mmol/L (20-31)
[2025-06-24 06:04] LABS: BUN/Creatinine Ratio 10.5 (10.0-20.0); Blood Urea Nitrogen 10 mg/dL (9-23)
[2025-06-24 06:10] LABS: Calcium 7.9 mg/dL (8.7-10.4); Chloride 114 mmol/L (98-107); Glucose 147 mg/dL (74-106); Potassium 3.4 mmol/L (3.5-5.1); Sodium 147 mmol/L (136-145)
[2025-06-24 06:38] LABS: Magnesium 2.0 mg/dL (1.6-2.6)
[2025-06-24 07:54] LABS: Base Excess -0.7 mmol/L (-2.0-3.0)
--- NOTE | 2025-06-24 10:18 | DVHPN2 ---
Subjective Patient chemically sedated Reviewed: Care Plan, H&P, Labs, Medications, Previous Orders, Radiology Changes from previous H/P or p: No Changes General: Per HPI Eyes: No Pain, No Vision change, No Conjunctivae inflammation, No Eyelid inflammation, No Other, No Redness ENT: No Ear pain, No Ear discharge, No Nose pain, No Nose discharge, No Nose congestion, No Mouth pain, No Mouth swelling, No Throat pain, No Throat swelling, No Other Cardiovascular: No Chest Pain, No Palpitations, No Orthopnea, No Paroxysmal Noc. Dyspnea, No Edema, No Lt Headedness; Other (Hypotension) Respiratory: No Cough, No Dry; Shortness of breath; No SOB with excertion, No Wheezing, No Hemoptysis, No Pleuritic Pain, No Sputum, No Other Gastrointestinal: No Nausea, No Vomiting, No Abdominal Pain, No Diarrhea, No Constipation, No Melena, No Hematochezia, No Other Genitourinary: No Dysuria, No Frequency, No Incontinence, No Hematuria, No Retention, No Other Musculoskeletal: other (BKA (LLE), RLE toe amputation); No neck pain, No shoulder pain, No arm pain, No back pain, No hand pain, No leg pain, No foot pain Skin: No Rash, No Lesions, No Jaundice, No Bruising, No Other Objective Vitals Vital Signs Date Time Temp Pulse Resp B/P (MAP) Pulse Ox O2 Delivery O2 Flow Rate FiO2 06/24/25 08:15 98.1 67 21 118/61 (80) 98 208.6 06/24/25 08:00 Mechanical Ventilator+ 30 30 Intake/Output Intake and Output 06/24/25 07:00 Intake Total 3095.70 ml Balance 3095.70 ml IV Total 3095.70 ml General Appearance: moderate distress, Other (Chemically sedated) HEENT: Atraumatic, PERRLA Lungs: Other (Mechanical ventilation) Cardiovascular: Normal S1, Normal S2 Abdomen: Normal bowel sounds, Soft, No tenderness, No hepatospenomegaly Genitourinary: No Apparent Abnormalities (Garcia catheter) Musculoskeletal: Other (Unable to assess) Extremities: Normal pulses, Other (Right foot with worsening gangrene) Neuro: Other (Unable to assess) Skin: Other (Right foot gangrene. Status post surgery) Psych/Mental Status: Other (Unable to assess) Medications Current Medications Medications Dose Ordered Sig/Philip Route Start Time Stop Time Status Last Admin Dose Admin Norepinephrine Bitartrate 250 ml @ 3.75 mls/hr Q24H IV 06/18/25 14:45 06/23/25 14:40 7.5 MLS/HR Propofol 100 ml @ 1.95 mls/hr Q24H IV 06/18/25 14:45 06/24/25 05:08 19.5 MLS/HR Midazolam HCl 50 ml @ 1 mls/hr Q24H IV 06/18/25 14:45 06/24/25 05:06 8 MLS/HR Fentanyl Citrate 250 ml @ 2.5 mls/hr Q24H IV 06/18/25 14:45 06/23/25 15:59 10 MLS/HR Dextrose 50 ml UD PRN IV 06/18/25 17:00 Cancel Insulin Glargine 15 units DAILY SC 06/19/25 10:00 06/23/25 09:04 15 UNITS Vancomycin HCl 0 ml @ 0 mls/hr UD IV 06/18/25 20:30 Ondansetron HCl 4 mg Q4HP PRN IV 06/18/25 20:30 Nitroglycerin 0.4 mg Q5MINP PRN SL 06/18/25 20:30 Morphine Sulfate 2 mg Q30M PRN IV 06/18/25 20:30 Diagnostic Test (Pha) 1 strip Q6HR 06/21/25 12:00 06/24/25 05:28 1 STRIP Insulin Human Regular Q6HR SC 06/21/25 12:00 06/24/25 05:32 2 UNITS Dextrose 50 ml UD PRN IV 06/21/25 11:15 Pantoprazole Sodium 40 mg BID IV 06/21/25 22:00 06/23/25 21:58 40 MG Cefepime HCl 50 ml @ 12.5 mls/hr Q12H IV 06/21/25 14:00 06/24/25 01:58 12.5 MLS/HR Micafungin Sodium 100 mg/Sodium Chloride 100 ml @ 100 mls/hr DAILY IV 06/22/25 10:15 06/23/25 10:46 100 MLS/HR Vancomycin HCl 100 ml @ 100 mls/hr Q12H IV 06/22/25 13:00 06/23/25 14:43 100 MLS/HR Enteral Nutritional Formula 1,000 ml 50ML/HR GT 06/23/25 07:00 Potassium Chloride/Sodium Chloride 1,000 ml @ 75 mls/hr [id number] IV 06/23/25 07:00 06/23/25 21:11 75 MLS/HR Laboratory Results Laboratory Tests 06/23/25 04:39 06/24/25 04:59 Chemistry Test 06/24/25 04:59 Calcium Level 7.9 mg/dL (8.7-10.4) L Magnesium Level 2.0 mg/dL (1.6-2.6) Urinalysis Test 06/18/25 13:37 Urine Color Light-yellow (Yellow) Urine Clarity Clear (Clear) Urine pH 5.5 (5.0-9.0) Urine Specific [place] 1.025 (1.001-1.035) Urine Protein Trace (Negative) H Urine Ketones 2+ (Negative) H Urine Blood Trace /uL (Negative) H Urine Nitrite Negative (Negative) Urine Bilirubin Negative (Negative) Urine Urobilinogen Normal mg/dL (Negative) Urine Leukocyte Esterase Negative /uL (Negative) Urine RBC 1 /hpf (0 - 3) Urine Microscopic WBC < 1 /HPF (0-3) Urine Squamous Epithelial Cells None seen /hpf (<5) Urine Bacteria Few /hpf (None Seen) H Urine Hyaline Casts Few /lpf (0 - 2) Urine Glucose 4+ mg/dL (Normal) H Blood Gas Results Test 06/24/25 07:40 Arterial Blood pH 7.542 (7.350-7.450) FiO2 % 30.0 Microbiology Microbiology Date/Time Source Procedure Growth Status 06/22/25 00:10 Nose MRSA Screen - Final Complete 06/18/25 15:04 Sputum Gram Stain - Final Complete 06/18/25 15:04 Respiratory Culture - Final Klebsiella pneumoniae Leclercia adecarboxylata Enterobacter cloacae Citrobacter farmeri Complete 06/18/25 13:09 Blood Blood Culture - Final NO GROWTH AFTER 5 DAYS OF INCUBATION. Complete Labs and/or images reviewed: Labs reviewed by me, Image(s) reviewed by me Assessment/Plan Assessment/Plan Impression: -septic shock -right foot osteomyelitis -diabetic ketoacidosis -acute hypoxic respiratory failure -diabetes mellitus -primary hypertension -acute kidney injury Plan: Events: No events overnight. Hypernatremic Shock improving. Still pending podiatry consultation -potassium replacement -start free water -Glucerna 50 mL/hour -Protonix 40 mg IV b.i.d. -continue vancomycin, cefepime, Diflucan -rosales cultures: Respiratory cultures reviewed. -decrease respiratory rate to 18 -repeat labs, chest x-ray, ABG in a.m.. Critical care time spent with patient discussing and formulating plan of care: 90 minutes. This does not include time spent performing procedures. This medical document was created using an electronic medical record system with [employer] system. Although this document has been carefully reviewed, there may still be some phonetic and typographical errors. These areas are purely typographical due to imperfections of the software programs, and do not reflect any compromise in the patient's medical care. Plan discussed with: Patient, Other (RN) My Orders Orders - MAINE VELAZCO NP Procedure Category Date Status Time Abg W/ Co-Ox RT 06/24/25 Logged 06:00 Complete Blood Count LAB 06/25/25 Verified 05:00 Complete Blood Count LAB 06/26/25 Verified 05:00 Complete Blood Count LAB 06/27/25 Verified 05:00 Date of Service: Jun 24, 2025 Billing Provider: MAINE VELAZCO NP Common Visit Codes: [id number] CARE 30-74 MIN MAINE VELAZCO NP Jun 24, 2025 10:18
[2025-06-24] MEDS: POTASSIUM EFFERVESENT TAB 25 MEQ GT ONE (11:27)
[2025-06-24] MEDS: FREE WATER GT SCH (11:28)
--- NOTE | 2025-06-24 13:28 | ECG ---
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
[2025-06-24] MEDS ORDERED: DEXMEDETOMIDINE HCL IN D5W 100 ML IV SCH (13:30)
--- NOTE | 2025-06-24 13:52 | DVHPN2 ---
Progress Note - Dictate Date Seen: Jun 24, 2025 Medical Necessity Reason Pt with a Central, PICC or Fol: No vital signs Vital Sign Date Time Temp Pulse Resp B/P (MAP) Pulse Ox O2 Delivery O2 Flow Rate FiO2 06/24/25 13:00 98.6 69 18 98/51 (67) 97 209.5 06/24/25 12:24 30 06/24/25 12:00 Mechanical Ventilator+ Total Intake and Output 06/23/25 06/23/25 06/24/25 15:00 23:00 07:00 Intake Total 1111.20 ml 1009.5 ml 975.0 ml Balance 1111.20 ml 1009.5 ml 975.0 ml medications Current Medications Medications Dose Ordered Sig/Philip Route Start Time Stop Time Status Last Admin Dose Admin Norepinephrine Bitartrate 250 ml @ 3.75 mls/hr Q24H IV 06/18/25 14:45 06/23/25 14:40 7.5 MLS/HR Propofol 100 ml @ 1.95 mls/hr Q24H IV 06/18/25 14:45 06/24/25 05:08 19.5 MLS/HR Midazolam HCl 50 ml @ 1 mls/hr Q24H IV 06/18/25 14:45 06/24/25 05:06 8 MLS/HR Fentanyl Citrate 250 ml @ 2.5 mls/hr Q24H IV 06/18/25 14:45 06/23/25 15:59 10 MLS/HR Dextrose 50 ml UD PRN IV 06/18/25 17:00 Cancel Insulin Glargine 15 units DAILY SC 06/19/25 10:00 06/24/25 11:27 15 UNITS Vancomycin HCl 0 ml @ 0 mls/hr UD IV 06/18/25 20:30 Ondansetron HCl 4 mg Q4HP PRN IV 06/18/25 20:30 Nitroglycerin 0.4 mg Q5MINP PRN SL 06/18/25 20:30 Morphine Sulfate 2 mg Q30M PRN IV 06/18/25 20:30 Diagnostic Test (Pha) 1 strip Q6HR 06/21/25 12:00 06/24/25 05:28 1 STRIP Insulin Human Regular Q6HR SC 06/21/25 12:00 06/24/25 11:30 3 UNITS Dextrose 50 ml UD PRN IV 06/21/25 11:15 Pantoprazole Sodium 40 mg BID IV 06/21/25 22:00 06/24/25 11:25 40 MG Cefepime HCl 50 ml @ 12.5 mls/hr Q12H IV 06/21/25 14:00 06/24/25 01:58 12.5 MLS/HR Micafungin Sodium 100 mg/Sodium Chloride 100 ml @ 100 mls/hr DAILY IV 06/22/25 10:15 06/24/25 11:25 100 MLS/HR Enteral Nutritional Formula 1,000 ml 50ML/HR GT 06/23/25 07:00 Potassium Chloride/Sodium Chloride 1,000 ml @ 75 mls/hr [id number] IV 06/23/25 07:00 06/24/25 11:24 75 MLS/HR Purified Water 200 ml Q6HR GT 06/24/25 12:00 06/24/25 11:28 200 ML laboratory and microbiology Laboratory Tests 06/24/25 04:59 06/23/25 04:39 Test 06/24/25 04:59 Range/Units Serum Glucose 147 H 74-106 mg/dL Assessment/Plan Impression Acute hypoxemic respiratory failure Altered mental status pneumonia covid 19 Hyperglycemia DKA Patient seen and examined in the ICU Events On mechanical ventilation S/p intubation PEEP 5, FiO2 30% Labs and imaging reviewed ABG reviewed Management Vent support Titrate to maintain sats 90% or above Sedation holiday daily weaning trial ok to use precedex Continue antibiotics F/u cultures Bronchodilators withold steroids in view poorly controlled DM Monitor renal function Monitor electrolytes Supplement as needed Pressors as needed for hemodynamic support To maintain a mean arterial pressure of 65 mmHg Glycemic control IV fluids DVT prophylaxis Critical care time 35 minutes Dietary Evaluation Review Comments: 1. glucerna 50/hr, along with Propofol 257kcal provide 100% Protein needs and 128% energy needs. Adding Ryder BID will promote wound healing. 2. Continure TF protocol, 3. Reassess when pt is extubated 4. Advance to CCHO-60 diet when pt passes PIPELINE DISPATCHER eval. Expected Outcomes/Goals: gradually healed wound, Avoid catabolic syndrome Plan discussed with: Other (Rn) BANDAR CARTWRIGHT MD Jun 24, 2025 13:52
--- NOTE | 2025-06-24 15:19 | DVHPN2 ---
Progress Note - Dictate Date Seen: Jun 24, 2025 Medical Necessity Reason Pt with a Central, PICC or Fol: No Subjective sedated and intubated vital signs Vital Sign Date Time Temp Pulse Resp B/P (MAP) Pulse Ox O2 Delivery O2 Flow Rate FiO2 06/24/25 14:00 69 06/24/25 14:00 30 06/24/25 14:00 20 97 Mechanical Ventilator+ 06/24/25 13:59 95/49 (64) 06/24/25 13:00 98.6 209.5 Total Intake and Output 06/23/25 06/23/25 06/24/25 15:00 23:00 07:00 Intake Total 1111.20 ml 1009.5 ml 975.0 ml Balance 1111.20 ml 1009.5 ml 975.0 ml medications Current Medications Medications Dose Ordered Sig/Philip Route Start Time Stop Time Status Last Admin Dose Admin Norepinephrine Bitartrate 250 ml @ 3.75 mls/hr Q24H IV 06/18/25 14:45 06/23/25 14:40 7.5 MLS/HR Propofol 100 ml @ 1.95 mls/hr Q24H IV 06/18/25 14:45 06/24/25 05:08 19.5 MLS/HR Midazolam HCl 50 ml @ 1 mls/hr Q24H IV 06/18/25 14:45 06/24/25 05:06 8 MLS/HR Fentanyl Citrate 250 ml @ 2.5 mls/hr Q24H IV 06/18/25 14:45 06/23/25 15:59 10 MLS/HR Dextrose 50 ml UD PRN IV 06/18/25 17:00 Cancel Insulin Glargine 15 units DAILY SC 06/19/25 10:00 06/24/25 11:27 15 UNITS Vancomycin HCl 0 ml @ 0 mls/hr UD IV 06/18/25 20:30 Ondansetron HCl 4 mg Q4HP PRN IV 06/18/25 20:30 Nitroglycerin 0.4 mg Q5MINP PRN SL 06/18/25 20:30 Morphine Sulfate 2 mg Q30M PRN IV 06/18/25 20:30 Diagnostic Test (Pha) 1 strip Q6HR 06/21/25 12:00 06/24/25 12:00 1 STRIP Insulin Human Regular Q6HR SC 06/21/25 12:00 06/24/25 11:30 3 UNITS Dextrose 50 ml UD PRN IV 06/21/25 11:15 Pantoprazole Sodium 40 mg BID IV 06/21/25 22:00 06/24/25 11:25 40 MG Cefepime HCl 50 ml @ 12.5 mls/hr Q12H IV 06/21/25 14:00 06/24/25 14:25 12.5 MLS/HR Micafungin Sodium 100 mg/Sodium Chloride 100 ml @ 100 mls/hr DAILY IV 06/22/25 10:15 06/24/25 11:25 100 MLS/HR Enteral Nutritional Formula 1,000 ml 50ML/HR GT 06/23/25 07:00 Potassium Chloride/Sodium Chloride 1,000 ml @ 75 mls/hr [id number] IV 06/23/25 07:00 06/24/25 11:24 75 MLS/HR Purified Water 200 ml Q6HR GT 06/24/25 12:00 06/24/25 11:28 200 ML objective Gen: Sedated and intubated HEENT: Normocephalic, no JVD Lungs: Bilateral good air entry CVS: S1, S2 regular rate rhythm Abdomen: Soft, bowel sounds present RECREATIONAL THERAPY TECHNICIAN: no focal deficits Extremities: no edema laboratory and microbiology Laboratory Tests 06/24/25 04:59 06/23/25 04:39 Test 06/24/25 04:59 Range/Units Serum Glucose 147 H 74-106 mg/dL Assessment/Plan Acute kidney injury secondary to osmotic diuresis due to hyperglycemia Acute hypoxic respiratory failure s/p intubation on mechanical ventilator Septic shock Right foot osteomyelitis Diabetic ketoacidosis, s/p insulin drip High anion gap metabolic acidosis secondary to DKA Hypokalemia Hypophosphatemia Hypernatremia Assessment/Plan GFR improving Excellent urine output. Continue 1/2 NS + 20 mEq sodium bicarb at 75 cc/h Free water fluses Supplement KCl as needed Vent management per Pulmonary. vasopressors to maintain MAP > 65 mmHg Podiatry consult Daily BMP Strict I&Os Dietary Evaluation Review Comments: 1. glucerna 50/hr, along with Propofol 257kcal provide 100% Protein needs and 128% energy needs. Adding Ryder BID will promote wound healing. 2. Continure TF protocol, 3. Reassess when pt is extubated 4. Advance to CCHO-60 diet when pt passes FIBERGLASS FABRICATOR eval. Expected Outcomes/Goals: gradually healed wound, Avoid catabolic syndrome Plan discussed with: Other RAUL SINGH MD Jun 24, 2025 15:19
[2025-06-24] MEDS: DEXMEDETOMIDINE HCL IN D5W 100 ML IV SCH (17:35)
[2025-06-25] VITALS (112 sets, daily range): BP systolic 72–175; BP diastolic 42–91; PULSE 63–144; RESP 15–32; TEMP 97.9–100.8; O2SAT 93–100
[2025-06-25 05:28] LABS: Hematocrit 33.0 % (41.0-53.0); Hemoglobin 11.4 g/dL (13.5-17.5); Mean Corpuscular Hemoglobin 33.0 pg (28.0-32.0); Mean Corpuscular Volume 95.0 fL (80.0-100.0)
[2025-06-25 05:42] LABS: Potassium 3.8 mmol/L (3.5-5.1)
[2025-06-25 05:43] LABS: Anion Gap 12 (5-15); Carbon Dioxide 25 mmol/L (20-31)
[2025-06-25 05:48] LABS: BUN/Creatinine Ratio 11.2 (10.0-20.0); Blood Urea Nitrogen 12 mg/dL (9-23); Calcium 8.1 mg/dL (8.7-10.4); Chloride 109 mmol/L (98-107); Glucose 254 mg/dL (74-106); Magnesium 2.0 mg/dL (1.6-2.6); Sodium 146 mmol/L (136-145)
--- NOTE | 2025-06-25 06:05 | DVH ---
CHEST RADIOGRAPH Indication: pna Technique: Single frontal view of the chest was obtained Comparison: XY CHEST PORTABLE on DOS: 06/24/25 FINDINGS: Lines and Tubes: The endotracheal tube terminates 2.6 cm above the alexis. There is a right central v enous catheter with its tip terminating in the superior cavoatrial junction. The enteric tube courses below the left hemidiaphragm and the tip extends outside the field of view. Lungs: Patchy bibasilar airspace disease. There is pulmonary vascular congestion which is unchanged. Pleura: No effusion. No pneumothorax. Cardiomediastinal contours: Unremarkable Bones: No acute osseous abnormality. IMPRESSION: 1. Support tubes in appropriate position. 2. Unchanged pulmonary vascular congestion and bibasilar airspace disease.
[2025-06-25 06:44] LABS: Base Excess 0.3 mmol/L (-2.0-3.0)
[2025-06-25 06:52] LABS: Total Cells Counted 100.0 (100)
--- NOTE | 2025-06-25 09:16 | DVHPN2 ---
Subjective Patient chemically sedated Reviewed: Care Plan, H&P, Labs, Medications, Previous Orders, Radiology Changes from previous H/P or p: No Changes General: Per HPI Eyes: No Pain, No Vision change, No Conjunctivae inflammation, No Eyelid inflammation, No Other, No Redness ENT: No Ear pain, No Ear discharge, No Nose pain, No Nose discharge, No Nose congestion, No Mouth pain, No Mouth swelling, No Throat pain, No Throat swelling, No Other Cardiovascular: No Chest Pain, No Palpitations, No Orthopnea, No Paroxysmal Noc. Dyspnea, No Edema, No Lt Headedness; Other (Hypotension) Respiratory: No Cough, No Dry; Shortness of breath; No SOB with excertion, No Wheezing, No Hemoptysis, No Pleuritic Pain, No Sputum, No Other Gastrointestinal: No Nausea, No Vomiting, No Abdominal Pain, No Diarrhea, No Constipation, No Melena, No Hematochezia, No Other Genitourinary: No Dysuria, No Frequency, No Incontinence, No Hematuria, No Retention, No Other Musculoskeletal: other (BKA (LLE), RLE toe amputation); No neck pain, No shoulder pain, No arm pain, No back pain, No hand pain, No leg pain, No foot pain Skin: No Rash, No Lesions, No Jaundice, No Bruising, No Other Objective Vitals Vital Signs Date Time Temp Pulse Resp B/P (MAP) Pulse Ox O2 Delivery O2 Flow Rate FiO2 06/25/25 08:25 30 06/25/25 08:18 18 98 Mechanical Ventilator+ 06/25/25 08:15 97.9 91 175/91 (119) 208.2 Intake/Output Intake and Output 06/25/25 07:00 Intake Total 3061.40 ml Output Total 4700 ml Balance -1638.60 ml IV Total 2861.40 ml Tube Feeding 200 ml Output Urine Total 4700 ml # Bowel Movements 1 General Appearance: moderate distress, Other (Chemically sedated) HEENT: Atraumatic, PERRLA Lungs: Other (Mechanical ventilation) Cardiovascular: Normal S1, Normal S2 Abdomen: Normal bowel sounds, Soft, No tenderness, No hepatospenomegaly Genitourinary: No Apparent Abnormalities (Garcia catheter) Musculoskeletal: Other (Unable to assess) Extremities: Normal pulses, Other (Right foot with worsening gangrene) Neuro: Other (Unable to assess) Skin: Other (Right foot gangrene. Status post surgery) Psych/Mental Status: Other (Unable to assess) Medications Current Medications Medications Dose Ordered Sig/Philip Route Start Time Stop Time Status Last Admin Dose Admin Norepinephrine Bitartrate 250 ml @ 3.75 mls/hr Q24H IV 06/18/25 14:45 06/24/25 21:17 7.5 MLS/HR Propofol 100 ml @ 1.95 mls/hr Q24H IV 06/18/25 14:45 06/25/25 00:28 13.65 MLS/HR Midazolam HCl 50 ml @ 1 mls/hr Q24H IV 06/18/25 14:45 06/25/25 03:56 6 MLS/HR Fentanyl Citrate 250 ml @ 2.5 mls/hr Q24H IV 06/18/25 14:45 06/25/25 02:52 15 MLS/HR Dextrose 50 ml UD PRN IV 06/18/25 17:00 Cancel Insulin Glargine 15 units DAILY SC 06/19/25 10:00 06/25/25 08:12 15 UNITS Vancomycin HCl 0 ml @ 0 mls/hr UD IV 06/18/25 20:30 Ondansetron HCl 4 mg Q4HP PRN IV 06/18/25 20:30 Nitroglycerin 0.4 mg Q5MINP PRN SL 06/18/25 20:30 Morphine Sulfate 2 mg Q30M PRN IV 06/18/25 20:30 Diagnostic Test (Pha) 1 strip Q6HR 06/21/25 12:00 06/25/25 08:12 1 STRIP Insulin Human Regular Q6HR SC 06/21/25 12:00 06/25/25 06:10 9 UNITS Dextrose 50 ml UD PRN IV 06/21/25 11:15 Pantoprazole Sodium 40 mg BID IV 06/21/25 22:00 06/25/25 08:11 40 MG Cefepime HCl 50 ml @ 12.5 mls/hr Q12H IV 06/21/25 14:00 06/25/25 02:47 12.5 MLS/HR Micafungin Sodium 100 mg/Sodium Chloride 100 ml @ 100 mls/hr DAILY IV 06/22/25 10:15 06/25/25 08:11 100 MLS/HR Enteral Nutritional Formula 1,000 ml 50ML/HR GT 06/23/25 07:00 Potassium Chloride/Sodium Chloride 1,000 ml @ 75 mls/hr [id number] IV 06/23/25 07:00 06/24/25 23:50 75 MLS/HR Purified Water 200 ml Q6HR GT 06/24/25 12:00 06/24/25 23:50 200 ML Laboratory Results Laboratory Tests 06/25/25 05:15 Chemistry Test 06/25/25 05:15 Calcium Level 8.1 mg/dL (8.7-10.4) L Magnesium Level 2.0 mg/dL (1.6-2.6) Urinalysis Test 06/18/25 13:37 Urine Color Light-yellow (Yellow) Urine Clarity Clear (Clear) Urine pH 5.5 (5.0-9.0) Urine Specific [place] 1.025 (1.001-1.035) Urine Protein Trace (Negative) H Urine Ketones 2+ (Negative) H Urine Blood Trace /uL (Negative) H Urine Nitrite Negative (Negative) Urine Bilirubin Negative (Negative) Urine Urobilinogen Normal mg/dL (Negative) Urine Leukocyte Esterase Negative /uL (Negative) Urine RBC 1 /hpf (0 - 3) Urine Microscopic WBC < 1 /HPF (0-3) Urine Squamous Epithelial Cells None seen /hpf (<5) Urine Bacteria Few /hpf (None Seen) H Urine Hyaline Casts Few /lpf (0 - 2) Urine Glucose 4+ mg/dL (Normal) H Blood Gas Results Test 06/25/25 06:36 Arterial Blood pH 7.422 (7.350-7.450) FiO2 % 30.0 Microbiology Microbiology Date/Time Source Procedure Growth Status 06/22/25 00:10 Nose MRSA Screen - Final Complete 06/18/25 15:04 Sputum Gram Stain - Final Complete 06/18/25 15:04 Respiratory Culture - Final Klebsiella pneumoniae Leclercia adecarboxylata Enterobacter cloacae Citrobacter farmeri Complete 06/18/25 13:09 Blood Blood Culture - Final NO GROWTH AFTER 5 DAYS OF INCUBATION. Complete Labs and/or images reviewed: Labs reviewed by me, Image(s) reviewed by me Assessment/Plan Assessment/Plan Impression: -septic shock -right foot osteomyelitis -diabetic ketoacidosis -acute hypoxic respiratory failure -diabetes mellitus -primary hypertension -acute kidney injury Plan: Events: Discussion made with the patient's son Sunday this morning. Given recommendations for BKA, decision was made to perform spontaneous breathing trial once appropriate. At this time surgical consultation will be held. -weaned sedation, spontaneous breathing trial -potassium replacement -continue free water -regular insulin sliding scale, increase Lantus to 20 units -Glucerna 50 mL/hour -Protonix 40 mg IV b.i.d. -continue vancomycin, cefepime, Diflucan -rosales cultures: Respiratory cultures reviewed. -continue current ventilator setting -repeat labs, chest x-ray, ABG in a.m.. Critical care time spent with patient discussing and formulating plan of care: 90 minutes. This does not include time spent performing procedures. This medical document was created using an electronic medical record system with [employer] dictation system. Although this document has been carefully reviewed, there may still be some phonetic and typographical errors. These areas are purely typographical due to imperfections of the software programs, and do not reflect any compromise in the patient's medical care. Plan discussed with: Patient, Son, Other (RN) My Orders Orders - MAINE VELAZCO NP Procedure Category Date Status Time Ventilator Orders RT 06/24/25 Transmitted 10:14 Free Water PHA 06/24/25 In Process 12:00 Abg W/ Co-Ox RT 06/25/25 Logged 06:00 Cpap Trial For Am ORDERS 06/25/25 Transmitted 07:42 Cpap/Sed Vacation Med ORDERS 06/25/25 Transmitted Weaning 07:50 Date of Service: Jun 25, 2025 Billing Provider: MAINE VELAZCO NP Common Visit Codes: [id number] CARE 30-74 MIN, [id number] CARE-EACH +30MIN MAINE VELAZCO NP Jun 25, 2025 09:16
[2025-06-25] MEDS: INSULIN LANTUS (GLARGINE) 1 /0.01ml (100units/ml) SC SCH (10:00)
[2025-06-25] MEDS: ACETAMINOPHEN 650 mg PER 20.3 mL UD GT PRN (12:42)
--- NOTE | 2025-06-25 14:18 | DVHPN2 ---
Progress Note - Dictate Date Seen: Jun 25, 2025 Medical Necessity Reason Pt with a Central, PICC or Fol: No Subjective sedated and intubated vital signs Vital Sign Date Time Temp Pulse Resp B/P (MAP) Pulse Ox O2 Delivery O2 Flow Rate FiO2 06/25/25 14:00 100.6 92 18 94/49 (64) 98 213.1 06/25/25 14:00 30 06/25/25 13:43 Mechanical Ventilator+ Total Intake and Output 06/24/25 06/24/25 06/25/25 15:00 23:00 07:00 Intake Total 1012.05 ml 956.85 ml 1092.50 ml Output Total 2200 ml 2500 ml Balance 1012.05 ml -1243.15 ml -1407.50 ml medications Current Medications Medications Dose Ordered Sig/Philip Route Start Time Stop Time Status Last Admin Dose Admin Norepinephrine Bitartrate 250 ml @ 3.75 mls/hr Q24H IV 06/18/25 14:45 06/24/25 21:17 7.5 MLS/HR Propofol 100 ml @ 1.95 mls/hr Q24H IV 06/18/25 14:45 06/25/25 00:28 13.65 MLS/HR Midazolam HCl 50 ml @ 1 mls/hr Q24H IV 06/18/25 14:45 06/25/25 03:56 6 MLS/HR Fentanyl Citrate 250 ml @ 2.5 mls/hr Q24H IV 06/18/25 14:45 06/25/25 02:52 15 MLS/HR Dextrose 50 ml UD PRN IV 06/18/25 17:00 Cancel Vancomycin HCl 0 ml @ 0 mls/hr UD IV 06/18/25 20:30 Ondansetron HCl 4 mg Q4HP PRN IV 06/18/25 20:30 Nitroglycerin 0.4 mg Q5MINP PRN SL 06/18/25 20:30 Morphine Sulfate 2 mg Q30M PRN IV 06/18/25 20:30 Diagnostic Test (Pha) 1 strip Q6HR 06/21/25 12:00 06/25/25 12:04 1 STRIP Insulin Human Regular Q6HR SC 06/21/25 12:00 06/25/25 12:05 3 UNITS Dextrose 50 ml UD PRN IV 06/21/25 11:15 Pantoprazole Sodium 40 mg BID IV 06/21/25 22:00 06/25/25 08:11 40 MG Cefepime HCl 50 ml @ 12.5 mls/hr Q12H IV 06/21/25 14:00 06/25/25 12:42 12.5 MLS/HR Micafungin Sodium 100 mg/Sodium Chloride 100 ml @ 100 mls/hr DAILY IV 06/22/25 10:15 06/25/25 08:11 100 MLS/HR Enteral Nutritional Formula 1,000 ml 50ML/HR GT 06/23/25 07:00 Potassium Chloride/Sodium Chloride 1,000 ml @ 75 mls/hr [id number] IV 06/23/25 07:00 06/25/25 12:05 75 MLS/HR Purified Water 200 ml Q6HR GT 06/24/25 12:00 06/25/25 10:41 200 ML Insulin Glargine 20 units DAILY SC 06/25/25 10:00 Acetaminophen 650 mg Q6HP PRN GT 06/25/25 12:30 06/25/25 12:42 650 MG objective Gen: Sedated and intubated HEENT: Normocephalic, no JVD Lungs: Bilateral good air entry CVS: S1, S2 regular rate rhythm Abdomen: Soft, bowel sounds present LEAD SOFTWARE TEST ENGINEER: no focal deficits Extremities: no edema laboratory and microbiology Laboratory Tests 06/25/25 05:15 Test 06/25/25 05:15 Range/Units Serum Glucose 254 #H 74-106 mg/dL Assessment/Plan Acute kidney injury secondary to osmotic diuresis due to hyperglycemia Acute hypoxic respiratory failure s/p intubation on mechanical ventilator Septic shock COVID-19 pneumonia Right foot osteomyelitis Diabetic ketoacidosis, s/p insulin drip High anion gap metabolic acidosis secondary to DKA Hypokalemia, resolved Hypophosphatemia, resolved Hypernatremia, improving Assessment/Plan GFR improving Excellent urine output. Continue Free water flushes Continue Tube feeding Supplement KCl as needed Vent management per Pulmonary. vasopressors to maintain MAP > 65 mmHg Podiatry consult Daily BMP Strict I&Os Dietary Evaluation Review Comments: 1. glucerna 50/hr, along with Propofol 257kcal provide 100% Protein needs and 128% energy needs. Adding Ryder BID will promote wound healing. 2. Continure TF protocol, 3. Reassess when pt is extubated 4. Advance to CCHO-60 diet when pt passes INSIGHTS MANAGER eval. Expected Outcomes/Goals: gradually healed wound, Avoid catabolic syndrome Plan discussed with: RAUL Beck MD Jun 25, 2025 14:18
--- NOTE | 2025-06-25 14:35 | DVHPN2 ---
Progress Note - Dictate Date Seen: Jun 25, 2025 Medical Necessity Reason Pt with a Central, PICC or Fol: No vital signs Vital Sign Date Time Temp Pulse Resp B/P (MAP) Pulse Ox O2 Delivery O2 Flow Rate FiO2 06/25/25 14:15 100.4 89 18 94/48 (63) 98 212.7 06/25/25 14:00 30 06/25/25 13:43 Mechanical Ventilator+ Total Intake and Output 06/24/25 06/24/25 06/25/25 15:00 23:00 07:00 Intake Total 1012.05 ml 956.85 ml 1092.50 ml Output Total 2200 ml 2500 ml Balance 1012.05 ml -1243.15 ml -1407.50 ml medications Current Medications Medications Dose Ordered Sig/Philip Route Start Time Stop Time Status Last Admin Dose Admin Norepinephrine Bitartrate 250 ml @ 3.75 mls/hr Q24H IV 06/18/25 14:45 06/24/25 21:17 7.5 MLS/HR Propofol 100 ml @ 1.95 mls/hr Q24H IV 06/18/25 14:45 06/25/25 00:28 13.65 MLS/HR Midazolam HCl 50 ml @ 1 mls/hr Q24H IV 06/18/25 14:45 06/25/25 03:56 6 MLS/HR Fentanyl Citrate 250 ml @ 2.5 mls/hr Q24H IV 06/18/25 14:45 06/25/25 02:52 15 MLS/HR Dextrose 50 ml UD PRN IV 06/18/25 17:00 Cancel Vancomycin HCl 0 ml @ 0 mls/hr UD IV 06/18/25 20:30 Ondansetron HCl 4 mg Q4HP PRN IV 06/18/25 20:30 Nitroglycerin 0.4 mg Q5MINP PRN SL 06/18/25 20:30 Morphine Sulfate 2 mg Q30M PRN IV 06/18/25 20:30 Diagnostic Test (Pha) 1 strip Q6HR 06/21/25 12:00 06/25/25 12:04 1 STRIP Insulin Human Regular Q6HR SC 06/21/25 12:00 06/25/25 12:05 3 UNITS Dextrose 50 ml UD PRN IV 06/21/25 11:15 Pantoprazole Sodium 40 mg BID IV 06/21/25 22:00 06/25/25 08:11 40 MG Cefepime HCl 50 ml @ 12.5 mls/hr Q12H IV 06/21/25 14:00 06/25/25 12:42 12.5 MLS/HR Micafungin Sodium 100 mg/Sodium Chloride 100 ml @ 100 mls/hr DAILY IV 06/22/25 10:15 06/25/25 08:11 100 MLS/HR Enteral Nutritional Formula 1,000 ml 50ML/HR GT 06/23/25 07:00 Potassium Chloride/Sodium Chloride 1,000 ml @ 75 mls/hr [id number] IV 06/23/25 07:00 06/25/25 12:05 75 MLS/HR Purified Water 200 ml Q6HR GT 06/24/25 12:00 06/25/25 10:41 200 ML Insulin Glargine 20 units DAILY SC 06/25/25 10:00 Acetaminophen 650 mg Q6HP PRN GT 06/25/25 12:30 06/25/25 12:42 650 MG laboratory and microbiology Laboratory Tests 06/25/25 05:15 Test 06/25/25 05:15 Range/Units Serum Glucose 254 #H 74-106 mg/dL Assessment/Plan Impression Acute hypoxemic respiratory failure Altered mental status pneumonia covid 19 Hyperglycemia DKA Patient seen and examined in the ICU Events On mechanical ventilation S/p intubation PEEP 5, FiO2 30% Labs and imaging reviewed ABG reviewed Management Vent support Titrate to maintain sats 90% or above Sedation holiday daily weaning trial ok to use precedex Continue antibiotics F/u cultures Bronchodilators withold steroids in view poorly controlled DM Monitor renal function Monitor electrolytes Supplement as needed Pressors as needed for hemodynamic support To maintain a mean arterial pressure of 65 mmHg Glycemic control IV fluids DVT prophylaxis Critical care time 35 minutes Dietary Evaluation Review Comments: 1. glucerna 50/hr, along with Propofol 257kcal provide 100% Protein needs and 128% energy needs. Adding Ryder BID will promote wound healing. 2. Continure TF protocol, 3. Reassess when pt is extubated 4. Advance to CCHO-60 diet when pt passes TOPOLOGY PROFESSOR eval. Expected Outcomes/Goals: gradually healed wound, Avoid catabolic syndrome Plan discussed with: Other (Rn) BANDAR CARTWRIGHT MD Jun 25, 2025 14:35
[2025-06-25] MEDS: VANCOMYCIN 750MG KIT 100 ML IV SCH (17:54)
[2025-06-26] VITALS (113 sets, daily range): BP systolic 80–158; BP diastolic 42–87; PULSE 78–103; RESP 14–28; TEMP 97.9–99.3; O2SAT 97–100
[2025-06-26 05:17] LABS: Hematocrit 29.4 % (41.0-53.0); Hemoglobin 10.3 g/dL (13.5-17.5); Mean Corpuscular Hemoglobin 33.3 pg (28.0-32.0); Mean Corpuscular Volume 95.6 fL (80.0-100.0); Nucleated Red Blood Cells % 0.1 %
[2025-06-26 05:27] LABS: Anion Gap 10 (5-15); Carbon Dioxide 26 mmol/L (20-31); Chloride 105 mmol/L (98-107); Sodium 141 mmol/L (136-145)
[2025-06-26 05:33] LABS: BUN/Creatinine Ratio 10.8 (10.0-20.0); Blood Urea Nitrogen 10 mg/dL (9-23); Calcium 8.1 mg/dL (8.7-10.4); Glucose 168 mg/dL (74-106); Magnesium 2.0 mg/dL (1.6-2.6); Potassium 3.5 mmol/L (3.5-5.1)
--- NOTE | 2025-06-26 06:00 | DVH ---
CHEST RADIOGRAPH Indication: pna Technique: Single frontal view of the chest was obtained COMPARISON: XY CHEST PORTABLE on DOS: 06/25/25, XY CHEST PORTABLE on DOS: 06/24/25, XY CHEST PORTABLE o n DOS: 06/23/25, XY CHEST XRAY 1 VIEW on DOS: 06/22/25, XY CHEST XRAY 1 VIEW on DOS: 06/21/25 FINDINGS: Lines and Tubes: Slight interval retraction of endotracheal tube such that the tip now projects appro ximately 4.3 cm above the level of the alexis. Remaining lines and tubes unchanged. Lungs: Stable appearing mild bibasilar pulmonary airspace disease. The upper lung zones are clear. Pleura: No effusion. No pneumothorax. Cardiomediastinal contours: Unremarkable Bones: Unremarkable IMPRESSION: 1. Slight interval retraction of endotracheal tube such that the tip now projects approximately 4.3 c m above the level of the alexis. Remaining lines and tubes unchanged. 2. Stable appearing mild bibasilar pulmonary airspace disease.
[2025-06-26 09:12] LABS: Base Excess 2.3 mmol/L (-2.0-3.0)
--- NOTE | 2025-06-26 13:07 | DVHPN2 ---
Reviewed: Care Plan, H&P, Labs, Medications, Previous Orders, Radiology Changes from previous H/P or p: No Changes, Changes General: Per HPI Eyes: No Pain, No Vision change, No Conjunctivae inflammation, No Eyelid inflammation, No Other, No Redness ENT: No Ear pain, No Ear discharge, No Nose pain, No Nose discharge, No Nose congestion, No Mouth pain, No Mouth swelling, No Throat pain, No Throat swelling, No Other Cardiovascular: No Chest Pain, No Palpitations, No Orthopnea, No Paroxysmal Noc. Dyspnea, No Edema, No Lt Headedness; Other (Hypotension) Respiratory: No Cough, No Dry; Shortness of breath; No SOB with excertion, No Wheezing, No Hemoptysis, No Pleuritic Pain, No Sputum, No Other Gastrointestinal: No Nausea, No Vomiting, No Abdominal Pain, No Diarrhea, No Constipation, No Melena, No Hematochezia, No Other Genitourinary: No Dysuria, No Frequency, No Incontinence, No Hematuria, No Retention, No Other Musculoskeletal: other (BKA (LLE), RLE toe amputation); No neck pain, No shoulder pain, No arm pain, No back pain, No hand pain, No leg pain, No foot pain Skin: No Rash, No Lesions, No Jaundice, No Bruising, No Other Objective Vitals Vital Signs Date Time Temp Pulse Resp B/P (MAP) Pulse Ox O2 Delivery O2 Flow Rate FiO2 06/26/25 12:45 99.1 86 18 116/63 (80) 100 210.4 06/26/25 12:37 30 06/26/25 11:52 Mechanical Ventilator+ Intake/Output Intake and Output 06/26/25 07:00 Intake Total 3318.65 ml Output Total 3300 ml Balance 18.65 ml Intake Oral 860 ml IV Total 2308.65 ml Tube Feeding 150 ml Output Urine Total 3300 ml # Bowel Movements 1 General Appearance: moderate distress, Other (Chemically sedated) HEENT: Atraumatic, PERRLA Lungs: Other (Mechanical ventilation) Cardiovascular: Normal S1, Normal S2 Abdomen: Normal bowel sounds, Soft, No tenderness, No hepatospenomegaly Genitourinary: No Apparent Abnormalities (Garcia catheter) Musculoskeletal: Other (Unable to assess) Extremities: Normal pulses, Other (Right foot with worsening gangrene) Neuro: Other (Unable to assess) Skin: Other (Right foot gangrene. Status post surgery) Psych/Mental Status: Other (Unable to assess) Medications Current Medications Medications Dose Ordered Sig/Philip Route Start Time Stop Time Status Last Admin Dose Admin Norepinephrine Bitartrate 250 ml @ 3.75 mls/hr Q24H IV 06/18/25 14:45 06/25/25 16:29 7.5 MLS/HR Propofol 100 ml @ 1.95 mls/hr Q24H IV 06/18/25 14:45 06/26/25 02:58 3.9 MLS/HR Midazolam HCl 50 ml @ 1 mls/hr Q24H IV 06/18/25 14:45 06/25/25 03:56 6 MLS/HR Fentanyl Citrate 250 ml @ 2.5 mls/hr Q24H IV 06/18/25 14:45 06/25/25 02:52 15 MLS/HR Dextrose 50 ml UD PRN IV 06/18/25 17:00 Cancel Vancomycin HCl 0 ml @ 0 mls/hr UD IV 06/18/25 20:30 Ondansetron HCl 4 mg Q4HP PRN IV 06/18/25 20:30 Nitroglycerin 0.4 mg Q5MINP PRN SL 06/18/25 20:30 Morphine Sulfate 2 mg Q30M PRN IV 06/18/25 20:30 Diagnostic Test (Pha) 1 strip Q6HR 06/21/25 12:00 06/26/25 08:08 1 STRIP Insulin Human Regular Q6HR SC 06/21/25 12:00 06/26/25 10:57 3 UNITS Dextrose 50 ml UD PRN IV 06/21/25 11:15 Pantoprazole Sodium 40 mg BID IV 06/21/25 22:00 06/26/25 08:07 40 MG Cefepime HCl 50 ml @ 12.5 mls/hr Q12H IV 06/21/25 14:00 06/26/25 01:05 12.5 MLS/HR Micafungin Sodium 100 mg/Sodium Chloride 100 ml @ 100 mls/hr DAILY IV 06/22/25 10:15 06/26/25 08:07 100 MLS/HR Enteral Nutritional Formula 1,000 ml 50ML/HR GT 06/23/25 07:00 Potassium Chloride/Sodium Chloride 1,000 ml @ 75 mls/hr [id number] IV 06/23/25 07:00 06/25/25 22:48 75 MLS/HR Purified Water 200 ml Q6HR GT 06/24/25 12:00 06/26/25 11:57 200 ML Insulin Glargine 20 units DAILY SC 06/25/25 10:00 06/26/25 08:08 20 UNITS Acetaminophen 650 mg Q6HP PRN GT 06/25/25 12:30 06/25/25 12:42 650 MG Vancomycin HCl 100 ml @ 100 mls/hr Q24H IV 06/25/25 18:00 06/25/25 17:54 100 MLS/HR Laboratory Results Laboratory Tests 06/26/25 04:44 Chemistry Test 06/26/25 04:44 Calcium Level 8.1 mg/dL (8.7-10.4) L Magnesium Level 2.0 mg/dL (1.6-2.6) Urinalysis Test 06/18/25 13:37 Urine Color Light-yellow (Yellow) Urine Clarity Clear (Clear) Urine pH 5.5 (5.0-9.0) Urine Specific [place] 1.025 (1.001-1.035) Urine Protein Trace (Negative) H Urine Ketones 2+ (Negative) H Urine Blood Trace /uL (Negative) H Urine Nitrite Negative (Negative) Urine Bilirubin Negative (Negative) Urine Urobilinogen Normal mg/dL (Negative) Urine Leukocyte Esterase Negative /uL (Negative) Urine RBC 1 /hpf (0 - 3) Urine Microscopic WBC < 1 /HPF (0-3) Urine Squamous Epithelial Cells None seen /hpf (<5) Urine Bacteria Few /hpf (None Seen) H Urine Hyaline Casts Few /lpf (0 - 2) Urine Glucose 4+ mg/dL (Normal) H Blood Gas Results Test 06/26/25 08:48 Arterial Blood pH 7.525 (7.350-7.450) FiO2 % 30.0 Microbiology Microbiology Date/Time Source Procedure Growth Status 06/22/25 00:10 Nose MRSA Screen - Final Complete 06/18/25 15:04 Sputum Gram Stain - Final Complete 06/18/25 15:04 Respiratory Culture - Final Klebsiella pneumoniae Leclercia adecarboxylata Enterobacter cloacae Citrobacter farmeri Complete 06/18/25 13:09 Blood Blood Culture - Final NO GROWTH AFTER 5 DAYS OF INCUBATION. Complete Labs and/or images reviewed: Labs reviewed by me, Image(s) reviewed by me Assessment/Plan Assessment/Plan Covering for nurse practitioner Philip Serrato -septic shock -right foot osteomyelitis : Vancomycin cefepime Diflucan -diabetic ketoacidosis -acute hypoxic respiratory failure status post intubated -diabetes mellitus -primary hypertension -acute kidney injury Time spent 66 minutes Advanced care planning time 20 minutes Patient is full code Plan discussed with: Patient Date of Service: Jun 26, 2025 Billing Provider: LAURA MATHIS MD Common Visit Codes: [id number] CARE 30-74 MIN LAURA MATHIS MD Jun 26, 2025 13:07
--- NOTE | 2025-06-26 13:14 | DVHPN2 ---
Progress Note - Dictate Date Seen: Jun 26, 2025 Medical Necessity Reason Pt with a Central, PICC or Fol: No Subjective sedated and intubated vital signs Vital Sign Date Time Temp Pulse Resp B/P (MAP) Pulse Ox O2 Delivery O2 Flow Rate FiO2 06/26/25 12:45 99.1 86 18 116/63 (80) 100 210.4 06/26/25 12:37 30 06/26/25 11:52 Mechanical Ventilator+ Total Intake and Output 06/25/25 06/25/25 06/26/25 15:00 23:00 07:00 Intake Total 833.35 ml 1148.70 ml 1336.60 ml Output Total 1200 ml 2100 ml Balance 833.35 ml -51.30 ml -763.40 ml medications Current Medications Medications Dose Ordered Sig/Philip Route Start Time Stop Time Status Last Admin Dose Admin Norepinephrine Bitartrate 250 ml @ 3.75 mls/hr Q24H IV 06/18/25 14:45 06/25/25 16:29 7.5 MLS/HR Propofol 100 ml @ 1.95 mls/hr Q24H IV 06/18/25 14:45 06/26/25 02:58 3.9 MLS/HR Midazolam HCl 50 ml @ 1 mls/hr Q24H IV 06/18/25 14:45 06/25/25 03:56 6 MLS/HR Fentanyl Citrate 250 ml @ 2.5 mls/hr Q24H IV 06/18/25 14:45 06/25/25 02:52 15 MLS/HR Dextrose 50 ml UD PRN IV 06/18/25 17:00 Cancel Vancomycin HCl 0 ml @ 0 mls/hr UD IV 06/18/25 20:30 Ondansetron HCl 4 mg Q4HP PRN IV 06/18/25 20:30 Nitroglycerin 0.4 mg Q5MINP PRN SL 06/18/25 20:30 Morphine Sulfate 2 mg Q30M PRN IV 06/18/25 20:30 Diagnostic Test (Pha) 1 strip Q6HR 06/21/25 12:00 06/26/25 08:08 1 STRIP Insulin Human Regular Q6HR SC 06/21/25 12:00 06/26/25 10:57 3 UNITS Dextrose 50 ml UD PRN IV 06/21/25 11:15 Pantoprazole Sodium 40 mg BID IV 06/21/25 22:00 06/26/25 08:07 40 MG Cefepime HCl 50 ml @ 12.5 mls/hr Q12H IV 06/21/25 14:00 06/26/25 01:05 12.5 MLS/HR Micafungin Sodium 100 mg/Sodium Chloride 100 ml @ 100 mls/hr DAILY IV 06/22/25 10:15 06/26/25 08:07 100 MLS/HR Enteral Nutritional Formula 1,000 ml 50ML/HR GT 06/23/25 07:00 Potassium Chloride/Sodium Chloride 1,000 ml @ 75 mls/hr [id number] IV 06/23/25 07:00 06/25/25 22:48 75 MLS/HR Purified Water 200 ml Q6HR GT 06/24/25 12:00 06/26/25 11:57 200 ML Insulin Glargine 20 units DAILY SC 06/25/25 10:00 06/26/25 08:08 20 UNITS Acetaminophen 650 mg Q6HP PRN GT 06/25/25 12:30 06/25/25 12:42 650 MG Vancomycin HCl 100 ml @ 100 mls/hr Q24H IV 06/25/25 18:00 06/25/25 17:54 100 MLS/HR objective Gen: Sedated and intubated HEENT: Normocephalic, no JVD Lungs: Bilateral good air entry CVS: S1, S2 regular rate rhythm Abdomen: Soft, bowel sounds present SALESPERSON FLYING SQUAD: no focal deficits Extremities: no edema laboratory and microbiology Laboratory Tests 06/26/25 04:44 Test 06/26/25 04:44 Range/Units Serum Glucose 168 H 74-106 mg/dL Assessment/Plan Acute kidney injury secondary to osmotic diuresis due to hyperglycemia Acute hypoxic respiratory failure s/p intubation on mechanical ventilator Septic shock COVID-19 pneumonia Right foot osteomyelitis Diabetic ketoacidosis, s/p insulin drip High anion gap metabolic acidosis secondary to DKA Hypokalemia, resolved Hypophosphatemia, resolved Hypernatremia, improving Assessment/Plan GFR improving Excellent urine output. Continue IVF with added potassium Continue Free water flushes Continue Tube feeding Vent management per Pulmonary. vasopressors to maintain MAP > 65 mmHg Podiatry consult Daily BMP Strict I&Os Dietary Evaluation Review Comments: 1. glucerna 50/hr, along with Propofol 257kcal provide 100% Protein needs and 128% energy needs. Adding Ryder BID will promote wound healing. 2. Continure TF protocol, 3. Reassess when pt is extubated 4. Advance to CCHO-60 diet when pt passes HEAVY EQUIPMENT SERVICE TECHNICIAN eval. Expected Outcomes/Goals: gradually healed wound, Avoid catabolic syndrome Plan discussed with: Other RAUL SINGH MD Jun 26, 2025 13:14
--- NOTE | 2025-06-26 13:28 | DVHPN2 ---
Progress Note - Dictate Date Seen: Jun 26, 2025 Medical Necessity Reason Pt with a Central, PICC or Fol: No vital signs Vital Sign Date Time Temp Pulse Resp B/P (MAP) Pulse Ox O2 Delivery O2 Flow Rate FiO2 06/26/25 12:45 99.1 86 18 116/63 (80) 100 210.4 06/26/25 12:37 30 06/26/25 11:52 Mechanical Ventilator+ Total Intake and Output 06/25/25 06/25/25 06/26/25 15:00 23:00 07:00 Intake Total 833.35 ml 1148.70 ml 1336.60 ml Output Total 1200 ml 2100 ml Balance 833.35 ml -51.30 ml -763.40 ml medications Current Medications Medications Dose Ordered Sig/Philip Route Start Time Stop Time Status Last Admin Dose Admin Norepinephrine Bitartrate 250 ml @ 3.75 mls/hr Q24H IV 06/18/25 14:45 06/25/25 16:29 7.5 MLS/HR Propofol 100 ml @ 1.95 mls/hr Q24H IV 06/18/25 14:45 06/26/25 02:58 3.9 MLS/HR Midazolam HCl 50 ml @ 1 mls/hr Q24H IV 06/18/25 14:45 06/25/25 03:56 6 MLS/HR Fentanyl Citrate 250 ml @ 2.5 mls/hr Q24H IV 06/18/25 14:45 06/25/25 02:52 15 MLS/HR Dextrose 50 ml UD PRN IV 06/18/25 17:00 Cancel Vancomycin HCl 0 ml @ 0 mls/hr UD IV 06/18/25 20:30 Ondansetron HCl 4 mg Q4HP PRN IV 06/18/25 20:30 Nitroglycerin 0.4 mg Q5MINP PRN SL 06/18/25 20:30 Morphine Sulfate 2 mg Q30M PRN IV 06/18/25 20:30 Diagnostic Test (Pha) 1 strip Q6HR 06/21/25 12:00 06/26/25 08:08 1 STRIP Insulin Human Regular Q6HR SC 06/21/25 12:00 06/26/25 10:57 3 UNITS Dextrose 50 ml UD PRN IV 06/21/25 11:15 Pantoprazole Sodium 40 mg BID IV 06/21/25 22:00 06/26/25 08:07 40 MG Cefepime HCl 50 ml @ 12.5 mls/hr Q12H IV 06/21/25 14:00 06/26/25 01:05 12.5 MLS/HR Micafungin Sodium 100 mg/Sodium Chloride 100 ml @ 100 mls/hr DAILY IV 06/22/25 10:15 06/26/25 08:07 100 MLS/HR Enteral Nutritional Formula 1,000 ml 50ML/HR GT 06/23/25 07:00 Potassium Chloride/Sodium Chloride 1,000 ml @ 75 mls/hr [id number] IV 06/23/25 07:00 06/25/25 22:48 75 MLS/HR Purified Water 200 ml Q6HR GT 06/24/25 12:00 06/26/25 11:57 200 ML Insulin Glargine 20 units DAILY SC 06/25/25 10:00 06/26/25 08:08 20 UNITS Acetaminophen 650 mg Q6HP PRN GT 06/25/25 12:30 06/25/25 12:42 650 MG Vancomycin HCl 100 ml @ 100 mls/hr Q24H IV 06/25/25 18:00 06/25/25 17:54 100 MLS/HR laboratory and microbiology Laboratory Tests 06/26/25 04:44 Test 06/26/25 04:44 Range/Units Serum Glucose 168 H 74-106 mg/dL Assessment/Plan Impression Acute hypoxemic respiratory failure Altered mental status pneumonia covid 19 Hyperglycemia DKA Patient seen and examined in the ICU Events On mechanical ventilation S/p intubation PEEP 5, FiO2 30% Labs and imaging reviewed ABG reviewed Management Vent support Titrate to maintain sats 90% or above Sedation holiday daily weaning trial ok to use precedex Continue antibiotics F/u cultures Bronchodilators withold steroids in view poorly controlled DM Monitor renal function Monitor electrolytes Supplement as needed Pressors as needed for hemodynamic support To maintain a mean arterial pressure of 65 mmHg Glycemic control IV fluids DVT prophylaxis Critical care time 35 minutes Dietary Evaluation Review Comments: 1. glucerna 50/hr, along with Propofol 257kcal provide 100% Protein needs and 128% energy needs. Adding Ryder BID will promote wound healing. 2. Continure TF protocol, 3. Reassess when pt is extubated 4. Advance to CCHO-60 diet when pt passes HEAVY EQUIPMENT PLUMBING SUPERVISOR eval. Expected Outcomes/Goals: gradually healed wound, Avoid catabolic syndrome Plan discussed with: Other (rn) BANDAR CARTWRIGHT MD Jun 26, 2025 13:28
[2025-06-26 14:38] LABS: COVID19 ANTIGEN SOFIA FIA NEGATIVE (NEGATIVE)
[2025-06-26] MEDS: NOREPINEPHRINE 8 MG/250ML KIT 250 ML IV SCH (16:30)
[2025-06-26] MEDS: CEFEPIME 2GM/50ML NS 50 ML IV SCH (19:43)
[2025-06-27] VITALS (113 sets, daily range): BP systolic 90–155; BP diastolic 49–85; PULSE 96–115; RESP 14–31; TEMP 98.4–99.9; O2SAT 97–100
[2025-06-27 05:07] LABS: Hematocrit 30.4 % (41.0-53.0); Hemoglobin 10.3 g/dL (13.5-17.5); Mean Corpuscular Hemoglobin 32.3 pg (28.0-32.0); Mean Corpuscular Volume 95.7 fL (80.0-100.0); Nucleated Red Blood Cells % 0.1 %
[2025-06-27 05:16] LABS: Alanine Aminotransferase 16 U/L (7-40); Anion Gap 10 (5-15); BUN/Creatinine Ratio 14.9 (10.0-20.0); Blood Urea Nitrogen 13 mg/dL (9-23); Carbon Dioxide 26 mmol/L (20-31); Chloride 100 mmol/L (98-107); Magnesium 1.9 mg/dL (1.6-2.6); Potassium 3.9 mmol/L (3.5-5.1); Total Protein 6.6 g/dL (5.7-8.2)
[2025-06-27 05:17] LABS: Bilirubin, Total 0.6 mg/dL (0.2-1.0)
[2025-06-27 05:20] LABS: Albumin 2.8 g/dL (3.2-4.8); Alkaline Phosphatase 574 U/L (46-116); Calcium 8.2 mg/dL (8.7-10.4); Glucose 160 mg/dL (74-106); Sodium 136 mmol/L (136-145)
--- NOTE | 2025-06-27 06:03 | DVH ---
CHEST RADIOGRAPH Indication: resp failure Technique: Single frontal view of the chest was obtained Comparison: XY CHEST PORTABLE on DOS: 06/26/25, XY CHEST PORTABLE on DOS: 06/25/25, XY CHEST PORTABLE o n DOS: 06/24/25 IMPRESSION: The heart is stable in size. Support lines and tubes appear unchanged in satisfactory position. Pat kanchan airspace opacity left lower lung appears unchanged. No pneumothorax.
--- NOTE | 2025-06-27 10:53 | DVHPN2 ---
Reviewed: Care Plan, H&P, Labs, Medications, Previous Orders, Radiology Changes from previous H/P or p: No Changes General: Per HPI Eyes: No Pain, No Vision change, No Conjunctivae inflammation, No Eyelid inflammation, No Other, No Redness ENT: No Ear pain, No Ear discharge, No Nose pain, No Nose discharge, No Nose congestion, No Mouth pain, No Mouth swelling, No Throat pain, No Throat swelling, No Other Cardiovascular: No Chest Pain, No Palpitations, No Orthopnea, No Paroxysmal Noc. Dyspnea, No Edema, No Lt Headedness; Other (Hypotension) Respiratory: No Cough, No Dry; Shortness of breath; No SOB with excertion, No Wheezing, No Hemoptysis, No Pleuritic Pain, No Sputum, No Other Gastrointestinal: No Nausea, No Vomiting, No Abdominal Pain, No Diarrhea, No Constipation, No Melena, No Hematochezia, No Other Genitourinary: No Dysuria, No Frequency, No Incontinence, No Hematuria, No Retention, No Other Musculoskeletal: other (BKA (LLE), RLE toe amputation); No neck pain, No shoulder pain, No arm pain, No back pain, No hand pain, No leg pain, No foot pain Skin: No Rash, No Lesions, No Jaundice, No Bruising, No Other Objective Vitals Vital Signs Date Time Temp Pulse Resp B/P (MAP) Pulse Ox O2 Delivery O2 Flow Rate FiO2 06/27/25 10:07 104 27 113/73 (86) 98 30 06/27/25 10:00 99.0 210.2 06/27/25 09:52 Mechanical Ventilator+ Intake/Output Intake and Output 06/27/25 07:00 Intake Total 3466.250 ml Output Total 3400 ml Balance 66.250 ml Intake Oral 1160 ml IV Total 2156.250 ml Tube Feeding 150 ml Output Urine Total 3400 ml General Appearance: moderate distress, Other (Chemically sedated) HEENT: Atraumatic, PERRLA Lungs: Other (Mechanical ventilation) Cardiovascular: Normal S1, Normal S2 Abdomen: Normal bowel sounds, Soft, No tenderness, No hepatospenomegaly Genitourinary: No Apparent Abnormalities (Garcia catheter) Musculoskeletal: Other (Unable to assess) Extremities: Normal pulses, Other (Right foot with worsening gangrene) Neuro: Other (Unable to assess) Skin: Other (Right foot gangrene. Status post surgery) Psych/Mental Status: Other (Unable to assess) Medications Current Medications Medications Dose Ordered Sig/Philip Route Start Time Stop Time Status Last Admin Dose Admin Propofol 100 ml @ 1.95 mls/hr Q24H IV 06/18/25 14:45 06/26/25 02:58 3.9 MLS/HR Midazolam HCl 50 ml @ 1 mls/hr Q24H IV 06/18/25 14:45 06/25/25 03:56 6 MLS/HR Fentanyl Citrate 250 ml @ 2.5 mls/hr Q24H IV 06/18/25 14:45 06/25/25 02:52 15 MLS/HR Dextrose 50 ml UD PRN IV 06/18/25 17:00 Cancel Vancomycin HCl 0 ml @ 0 mls/hr UD IV 06/18/25 20:30 Ondansetron HCl 4 mg Q4HP PRN IV 06/18/25 20:30 Nitroglycerin 0.4 mg Q5MINP PRN SL 06/18/25 20:30 Morphine Sulfate 2 mg Q30M PRN IV 06/18/25 20:30 Diagnostic Test (Pha) 1 strip Q6HR 06/21/25 12:00 06/27/25 10:47 1 STRIP Insulin Human Regular Q6HR SC 06/21/25 12:00 06/27/25 10:47 3 UNITS Dextrose 50 ml UD PRN IV 06/21/25 11:15 Pantoprazole Sodium 40 mg BID IV 06/21/25 22:00 06/27/25 07:40 40 MG Micafungin Sodium 100 mg/Sodium Chloride 100 ml @ 100 mls/hr DAILY IV 06/22/25 10:15 06/27/25 07:40 100 MLS/HR Enteral Nutritional Formula 1,000 ml 50ML/HR GT 06/23/25 07:00 Potassium Chloride/Sodium Chloride 1,000 ml @ 75 mls/hr [id number] IV 06/23/25 07:00 06/27/25 07:00 75 MLS/HR Purified Water 200 ml Q6HR GT 06/24/25 12:00 06/27/25 06:00 200 ML Insulin Glargine 20 units DAILY SC 06/25/25 10:00 06/27/25 07:53 20 UNITS Acetaminophen 650 mg Q6HP PRN GT 06/25/25 12:30 06/25/25 12:42 650 MG Vancomycin HCl 100 ml @ 100 mls/hr Q24H IV 06/25/25 18:00 06/26/25 17:22 100 MLS/HR Norepinephrine Bitartrate 250 ml @ 1.875 mls/ hr Q24H IV 06/26/25 14:15 06/26/25 16:30 1.875 MLS/HR Cefepime HCl 50 ml @ 12.5 mls/hr Q8HR IV 06/26/25 22:00 06/27/25 05:59 12.5 MLS/HR Laboratory Results Laboratory Tests 06/27/25 04:44 Chemistry Test 06/27/25 04:44 Albumin 2.8 g/dL (3.2-4.8) L Calcium Level 8.2 mg/dL (8.7-10.4) L Magnesium Level 1.9 mg/dL (1.6-2.6) Total Protein 6.6 g/dL (5.7-8.2) LFT Test 06/27/25 04:44 Alanine Aminotransferase (ALT) 16 U/L (7-40) Alkaline Phosphatase 574 U/L (46-116) H Aspartate Amino Transferase (AST) 51 U/L (13-40) H Total Bilirubin 0.6 mg/dL (0.2-1.0) Urinalysis Test 06/18/25 13:37 Urine Color Light-yellow (Yellow) Urine Clarity Clear (Clear) Urine pH 5.5 (5.0-9.0) Urine Specific [place] 1.025 (1.001-1.035) Urine Protein Trace (Negative) H Urine Ketones 2+ (Negative) H Urine Blood Trace /uL (Negative) H Urine Nitrite Negative (Negative) Urine Bilirubin Negative (Negative) Urine Urobilinogen Normal mg/dL (Negative) Urine Leukocyte Esterase Negative /uL (Negative) Urine RBC 1 /hpf (0 - 3) Urine Microscopic WBC < 1 /HPF (0-3) Urine Squamous Epithelial Cells None seen /hpf (<5) Urine Bacteria Few /hpf (None Seen) H Urine Hyaline Casts Few /lpf (0 - 2) Urine Glucose 4+ mg/dL (Normal) H Microbiology Microbiology Date/Time Source Procedure Growth Status 06/22/25 00:10 Nose MRSA Screen - Final Complete 06/18/25 15:04 Sputum Gram Stain - Final Complete 06/18/25 15:04 Respiratory Culture - Final Klebsiella pneumoniae Leclercia adecarboxylata Enterobacter cloacae Citrobacter farmeri Complete 06/18/25 13:09 Blood Blood Culture - Final NO GROWTH AFTER 5 DAYS OF INCUBATION. Complete Labs and/or images reviewed: Labs reviewed by me, Image(s) reviewed by me Assessment/Plan Assessment/Plan Covering for nurse practitioner Philip Serrato -septic shock -right foot osteomyelitis : Vancomycin cefepime Diflucan -diabetic ketoacidosis -acute hypoxic respiratory failure status post intubated -diabetes mellitus -primary hypertension -acute kidney injury Time spent 56 minutes Advanced care planning time 20 minutes Patient is full code Plan discussed with: Patient My Orders Orders - LAURA MATHIS MD Procedure Category Date Status Time Chest Portable XY 06/27/25 Resulted 04:00 Covid19 Antigen [facility] 06/27/25 Logged Date of Service: Jun 27, 2025 Billing Provider: LAURA MATHIS MD Common Visit Codes: [id number] INP/OBS CARE(HIGH) LAURA MATHIS MD Jun 27, 2025 10:53
[2025-06-27 11:17] LABS: Base Excess 1.1 mmol/L (-2.0-3.0)
[2025-06-27 11:33] LABS: COVID19 ANTIGEN SOFIA FIA POSITIVE (NEGATIVE)
--- NOTE | 2025-06-27 14:51 | DVHPN2 ---
Progress Note - Dictate Date Seen: Jun 27, 2025 Medical Necessity Reason Pt with a Central, PICC or Fol: No vital signs Vital Sign Date Time Temp Pulse Resp B/P (MAP) Pulse Ox O2 Delivery O2 Flow Rate FiO2 06/27/25 14:02 30 06/27/25 14:00 99.7 98 19 109/59 (76) 98 211.5 06/27/25 13:59 Mechanical Ventilator+ Total Intake and Output 06/26/25 06/26/25 06/27/25 15:00 23:00 07:00 Intake Total 730.00 ml 1616.875 ml 1119.375 ml Output Total 1400 ml 2000 ml Balance 730.00 ml 216.875 ml -880.625 ml medications Current Medications Medications Dose Ordered Sig/Philip Route Start Time Stop Time Status Last Admin Dose Admin Propofol 100 ml @ 1.95 mls/hr Q24H IV 06/18/25 14:45 06/26/25 02:58 3.9 MLS/HR Midazolam HCl 50 ml @ 1 mls/hr Q24H IV 06/18/25 14:45 06/25/25 03:56 6 MLS/HR Fentanyl Citrate 250 ml @ 2.5 mls/hr Q24H IV 06/18/25 14:45 06/25/25 02:52 15 MLS/HR Dextrose 50 ml UD PRN IV 06/18/25 17:00 Cancel Vancomycin HCl 0 ml @ 0 mls/hr UD IV 06/18/25 20:30 Ondansetron HCl 4 mg Q4HP PRN IV 06/18/25 20:30 Nitroglycerin 0.4 mg Q5MINP PRN SL 06/18/25 20:30 Morphine Sulfate 2 mg Q30M PRN IV 06/18/25 20:30 Diagnostic Test (Pha) 1 strip Q6HR 06/21/25 12:00 06/27/25 10:47 1 STRIP Insulin Human Regular Q6HR SC 06/21/25 12:00 06/27/25 10:47 3 UNITS Dextrose 50 ml UD PRN IV 06/21/25 11:15 Pantoprazole Sodium 40 mg BID IV 06/21/25 22:00 06/27/25 07:40 40 MG Micafungin Sodium 100 mg/Sodium Chloride 100 ml @ 100 mls/hr DAILY IV 06/22/25 10:15 06/27/25 07:40 100 MLS/HR Enteral Nutritional Formula 1,000 ml 50ML/HR GT 06/23/25 07:00 Potassium Chloride/Sodium Chloride 1,000 ml @ 75 mls/hr [id number] IV 06/23/25 07:00 06/27/25 07:00 75 MLS/HR Purified Water 200 ml Q6HR GT 06/24/25 12:00 06/27/25 06:00 200 ML Insulin Glargine 20 units DAILY SC 06/25/25 10:00 06/27/25 07:53 20 UNITS Acetaminophen 650 mg Q6HP PRN GT 06/25/25 12:30 06/25/25 12:42 650 MG Vancomycin HCl 100 ml @ 100 mls/hr Q24H IV 06/25/25 18:00 06/26/25 17:22 100 MLS/HR Norepinephrine Bitartrate 250 ml @ 1.875 mls/ hr Q24H IV 06/26/25 14:15 06/26/25 16:30 1.875 MLS/HR Cefepime HCl 50 ml @ 12.5 mls/hr Q8HR IV 06/26/25 22:00 06/27/25 13:20 12.5 MLS/HR laboratory and microbiology Laboratory Tests 06/27/25 04:44 Test 06/27/25 04:44 Range/Units Serum Glucose 160 H 74-106 mg/dL Assessment/Plan Impression Acute hypoxemic respiratory failure Altered mental status pneumonia covid 19 Hyperglycemia DKA Patient seen and examined in the ICU Events On mechanical ventilation S/p intubation PEEP 5, FiO2 30% Minimal sedation Labs and imaging reviewed ABG reviewed Management Vent support Titrate to maintain sats 90% or above Sedation holiday daily weaning trial ok to use precedex Continue antibiotics F/u cultures Bronchodilators withhold steroids in view poorly controlled DM Monitor renal function Monitor electrolytes Supplement as needed Pressors as needed for hemodynamic support To maintain a mean arterial pressure of 65 mmHg Glycemic control IV fluids DVT prophylaxis Critical care time 35 minutes Dietary Evaluation Review Comments: 1. glucerna 50/hr, along with Propofol 257kcal provide 100% Protein needs and 128% energy needs. Adding Ryder BID will promote wound healing. 2. Continure TF protocol, 3. Reassess when pt is extubated 4. Advance to [facility]- diet when pt passes COLLAR SEPARATOR eval. Expected Outcomes/Goals: gradually healed wound, Avoid catabolic syndrome Plan discussed with: Other (Rn) BANDAR CARTWRIGHT MD Jun 27, 2025 14:51
--- NOTE | 2025-06-27 15:15 | DVHPN2 ---
Progress Note - Dictate Date Seen: Jun 27, 2025 Medical Necessity Reason Pt with a Central, PICC or Fol: No Subjective sedated and intubated vital signs Vital Sign Date Time Temp Pulse Resp B/P (MAP) Pulse Ox O2 Delivery O2 Flow Rate FiO2 06/27/25 14:02 30 06/27/25 14:00 99.7 98 19 109/59 (76) 98 211.5 06/27/25 13:59 Mechanical Ventilator+ Total Intake and Output 06/26/25 06/26/25 06/27/25 15:00 23:00 07:00 Intake Total 730.00 ml 1616.875 ml 1119.375 ml Output Total 1400 ml 2000 ml Balance 730.00 ml 216.875 ml -880.625 ml medications Current Medications Medications Dose Ordered Sig/Philip Route Start Time Stop Time Status Last Admin Dose Admin Propofol 100 ml @ 1.95 mls/hr Q24H IV 06/18/25 14:45 06/26/25 02:58 3.9 MLS/HR Midazolam HCl 50 ml @ 1 mls/hr Q24H IV 06/18/25 14:45 06/25/25 03:56 6 MLS/HR Fentanyl Citrate 250 ml @ 2.5 mls/hr Q24H IV 06/18/25 14:45 06/25/25 02:52 15 MLS/HR Dextrose 50 ml UD PRN IV 06/18/25 17:00 Cancel Vancomycin HCl 0 ml @ 0 mls/hr UD IV 06/18/25 20:30 Ondansetron HCl 4 mg Q4HP PRN IV 06/18/25 20:30 Nitroglycerin 0.4 mg Q5MINP PRN SL 06/18/25 20:30 Morphine Sulfate 2 mg Q30M PRN IV 06/18/25 20:30 Diagnostic Test (Pha) 1 strip Q6HR 06/21/25 12:00 06/27/25 10:47 1 STRIP Insulin Human Regular Q6HR SC 06/21/25 12:00 06/27/25 10:47 3 UNITS Dextrose 50 ml UD PRN IV 06/21/25 11:15 Pantoprazole Sodium 40 mg BID IV 06/21/25 22:00 06/27/25 07:40 40 MG Micafungin Sodium 100 mg/Sodium Chloride 100 ml @ 100 mls/hr DAILY IV 06/22/25 10:15 06/27/25 07:40 100 MLS/HR Enteral Nutritional Formula 1,000 ml 50ML/HR GT 06/23/25 07:00 Potassium Chloride/Sodium Chloride 1,000 ml @ 75 mls/hr [id number] IV 06/23/25 07:00 06/27/25 07:00 75 MLS/HR Purified Water 200 ml Q6HR GT 06/24/25 12:00 06/27/25 06:00 200 ML Insulin Glargine 20 units DAILY SC 06/25/25 10:00 06/27/25 07:53 20 UNITS Acetaminophen 650 mg Q6HP PRN GT 06/25/25 12:30 06/25/25 12:42 650 MG Vancomycin HCl 100 ml @ 100 mls/hr Q24H IV 06/25/25 18:00 06/26/25 17:22 100 MLS/HR Norepinephrine Bitartrate 250 ml @ 1.875 mls/ hr Q24H IV 06/26/25 14:15 06/26/25 16:30 1.875 MLS/HR Cefepime HCl 50 ml @ 12.5 mls/hr Q8HR IV 06/26/25 22:00 06/27/25 13:20 12.5 MLS/HR objective Gen: Sedated and intubated HEENT: Normocephalic, no JVD Lungs: Bilateral good air entry CVS: S1, S2 regular rate rhythm Abdomen: Soft, bowel sounds present EDUCATIONAL THERAPY TEACHER: no focal deficits Extremities: no edema laboratory and microbiology Laboratory Tests 06/27/25 04:44 Test 06/27/25 04:44 Range/Units Serum Glucose 160 H 74-106 mg/dL Assessment/Plan Acute kidney injury secondary to osmotic diuresis due to hyperglycemia :Resolved Acute hypoxic respiratory failure s/p intubation on mechanical ventilator Septic shock COVID-19 pneumonia Right foot osteomyelitis Diabetic ketoacidosis, s/p insulin drip High anion gap metabolic acidosis secondary to DKA Hypokalemia, resolved Hypophosphatemia, resolved Hypernatremia, improving Assessment/Plan Excellent urine output. Continue IVF with added potassium Continue Free water flushes Continue Tube feeding Vent management per Pulmonary. vasopressors to maintain MAP > 65 mmHg Podiatry consult Daily BMP Strict I&Os I will sign off Dietary Evaluation Review Comments: 1. glucerna 50/hr, along with Propofol 257kcal provide 100% Protein needs and 128% energy needs. Adding Ryder BID will promote wound healing. 2. Continure TF protocol, 3. Reassess when pt is extubated 4. Advance to CCHO-60 diet when pt passes MAPPING ANALYST eval. Expected Outcomes/Goals: gradually healed wound, Avoid catabolic syndrome Plan discussed with: Other RAUL SINGH MD Jun 27, 2025 15:15
[2025-06-28] VITALS (108 sets, daily range): BP systolic 104–173; BP diastolic 44–87; PULSE 92–116; RESP 9–27; TEMP 98.6–100.4; O2SAT 95–99
--- NOTE | 2025-06-28 05:07 | DVH ---
CHEST RADIOGRAPH Indication: resp distress Technique: Single frontal view of the chest was obtained COMPARISON: XY CHEST PORTABLE on DOS: 06/27/25, XY CHEST PORTABLE on DOS: 06/26/25, XY CHEST PORTABLE o n DOS: 06/25/25, XY CHEST PORTABLE on DOS: 06/24/25, XY CHEST PORTABLE on DOS: 06/23/25 FINDINGS: Lines and Tubes: Endotracheal tube, enteric catheter and right central venous catheter in satisfactor y position Lungs: Clear Pleura: No effusion. No pneumothorax. Cardiomediastinal contours: Unremarkable Bones: Unremarkable IMPRESSION: Lines and tubes in satisfactory position. Improving bilateral lung aeration.
[2025-06-28 05:45] LABS: Hematocrit 28.3 % (41.0-53.0); Hemoglobin 10.0 g/dL (13.5-17.5); Mean Corpuscular Hemoglobin 33.7 pg (28.0-32.0); Mean Corpuscular Volume 95.0 fL (80.0-100.0); Nucleated Red Blood Cells % 0.0 %
[2025-06-28 05:57] LABS: Alanine Aminotransferase 18 U/L (7-40); Anion Gap 9 (5-15); BUN/Creatinine Ratio 16.5 (10.0-20.0); Blood Urea Nitrogen 14 mg/dL (9-23); Carbon Dioxide 27 mmol/L (20-31); Chloride 102 mmol/L (98-107); Magnesium 2.0 mg/dL (1.6-2.6); Potassium 3.6 mmol/L (3.5-5.1); Sodium 138 mmol/L (136-145); Total Protein 6.5 g/dL (5.7-8.2)
[2025-06-28 05:58] LABS: Bilirubin, Total 0.6 mg/dL (0.2-1.0)
[2025-06-28 06:11] LABS: Albumin 2.7 g/dL (3.2-4.8); Alkaline Phosphatase 530 U/L (46-116); Calcium 8.0 mg/dL (8.7-10.4); Glucose 125 mg/dL (74-106)
[2025-06-28 07:02] LABS: Base Excess 1.9 mmol/L (-2.0-3.0)
--- NOTE | 2025-06-28 10:25 | DVHPN2 ---
Reviewed: Care Plan, H&P, Labs, Medications, Previous Orders, Radiology Changes from previous H/P or p: No Changes General: Per HPI Eyes: No Pain, No Vision change, No Conjunctivae inflammation, No Eyelid inflammation, No Other, No Redness ENT: No Ear pain, No Ear discharge, No Nose pain, No Nose discharge, No Nose congestion, No Mouth pain, No Mouth swelling, No Throat pain, No Throat swelling, No Other Cardiovascular: No Chest Pain, No Palpitations, No Orthopnea, No Paroxysmal Noc. Dyspnea, No Edema, No Lt Headedness; Other (Hypotension) Respiratory: No Cough, No Dry; Shortness of breath; No SOB with excertion, No Wheezing, No Hemoptysis, No Pleuritic Pain, No Sputum, No Other Gastrointestinal: No Nausea, No Vomiting, No Abdominal Pain, No Diarrhea, No Constipation, No Melena, No Hematochezia, No Other Genitourinary: No Dysuria, No Frequency, No Incontinence, No Hematuria, No Retention, No Other Musculoskeletal: other (BKA (LLE), RLE toe amputation); No neck pain, No shoulder pain, No arm pain, No back pain, No hand pain, No leg pain, No foot pain Skin: No Rash, No Lesions, No Jaundice, No Bruising, No Other Objective Vitals Vital Signs Date Time Temp Pulse Resp B/P (MAP) Pulse Ox O2 Delivery O2 Flow Rate FiO2 06/28/25 10:12 99 19 129/66 (87) 97 30 06/28/25 08:00 99.3 210.7 06/28/25 08:00 Mechanical Ventilator+ Intake/Output Intake and Output 06/28/25 07:00 Intake Total 3112.5 ml Output Total 2800 ml Balance 312.5 ml Intake Oral 800 ml IV Total 2162.5 ml Tube Feeding 150 ml Output Urine Total 2800 ml # Bowel Movements 1 General Appearance: moderate distress, Other (Chemically sedated) HEENT: Atraumatic, PERRLA Lungs: Other (Mechanical ventilation) Cardiovascular: Normal S1, Normal S2 Abdomen: Normal bowel sounds, Soft, No tenderness, No hepatospenomegaly Genitourinary: No Apparent Abnormalities (Garcia catheter) Musculoskeletal: Other (Unable to assess) Extremities: Normal pulses, Other (Right foot with worsening gangrene) Neuro: Other (Unable to assess) Skin: Other (Right foot gangrene. Status post surgery) Psych/Mental Status: Other (Unable to assess) Medications Current Medications Medications Dose Ordered Sig/Philip Route Start Time Stop Time Status Last Admin Dose Admin Propofol 100 ml @ 1.95 mls/hr Q24H IV 06/18/25 14:45 06/26/25 02:58 3.9 MLS/HR Midazolam HCl 50 ml @ 1 mls/hr Q24H IV 06/18/25 14:45 06/25/25 03:56 6 MLS/HR Fentanyl Citrate 250 ml @ 2.5 mls/hr Q24H IV 06/18/25 14:45 06/25/25 02:52 15 MLS/HR Dextrose 50 ml UD PRN IV 06/18/25 17:00 Cancel Vancomycin HCl 0 ml @ 0 mls/hr UD IV 06/18/25 20:30 Ondansetron HCl 4 mg Q4HP PRN IV 06/18/25 20:30 Nitroglycerin 0.4 mg Q5MINP PRN SL 06/18/25 20:30 Morphine Sulfate 2 mg Q30M PRN IV 06/18/25 20:30 Diagnostic Test (Pha) 1 strip Q6HR 06/21/25 12:00 06/28/25 05:40 1 STRIP Insulin Human Regular Q6HR SC 06/21/25 12:00 06/28/25 05:40 2 UNITS Dextrose 50 ml UD PRN IV 06/21/25 11:15 Pantoprazole Sodium 40 mg BID IV 06/21/25 22:00 06/28/25 10:14 40 MG Micafungin Sodium 100 mg/Sodium Chloride 100 ml @ 100 mls/hr DAILY IV 06/22/25 10:15 06/28/25 10:14 100 MLS/HR Enteral Nutritional Formula 1,000 ml 50ML/HR GT 06/23/25 07:00 Potassium Chloride/Sodium Chloride 1,000 ml @ 75 mls/hr [id number] IV 06/23/25 07:00 06/27/25 22:35 75 MLS/HR Purified Water 200 ml Q6HR GT 06/24/25 12:00 06/28/25 05:39 200 ML Insulin Glargine 20 units DAILY SC 06/25/25 10:00 06/28/25 10:15 20 UNITS Acetaminophen 650 mg Q6HP PRN GT 06/25/25 12:30 06/28/25 01:22 650 MG Vancomycin HCl 100 ml @ 100 mls/hr Q24H IV 06/25/25 18:00 06/27/25 17:40 100 MLS/HR Norepinephrine Bitartrate 250 ml @ 1.875 mls/ hr Q24H IV 06/26/25 14:15 06/26/25 16:30 1.875 MLS/HR Cefepime HCl 50 ml @ 12.5 mls/hr Q8HR IV 06/26/25 22:00 06/28/25 05:39 12.5 MLS/HR Laboratory Results Laboratory Tests 06/28/25 05:00 Chemistry Test 06/28/25 05:00 Albumin 2.7 g/dL (3.2-4.8) L Calcium Level 8.0 mg/dL (8.7-10.4) L Magnesium Level 2.0 mg/dL (1.6-2.6) Total Protein 6.5 g/dL (5.7-8.2) LFT Test 06/28/25 05:00 Alanine Aminotransferase (ALT) 18 U/L (7-40) Alkaline Phosphatase 530 U/L (46-116) H Aspartate Amino Transferase (AST) 52 U/L (13-40) H Total Bilirubin 0.6 mg/dL (0.2-1.0) Urinalysis Test 06/18/25 13:37 Urine Color Light-yellow (Yellow) Urine Clarity Clear (Clear) Urine pH 5.5 (5.0-9.0) Urine Specific [place] 1.025 (1.001-1.035) Urine Protein Trace (Negative) H Urine Ketones 2+ (Negative) H Urine Blood Trace /uL (Negative) H Urine Nitrite Negative (Negative) Urine Bilirubin Negative (Negative) Urine Urobilinogen Normal mg/dL (Negative) Urine Leukocyte Esterase Negative /uL (Negative) Urine RBC 1 /hpf (0 - 3) Urine Microscopic WBC < 1 /HPF (0-3) Urine Squamous Epithelial Cells None seen /hpf (<5) Urine Bacteria Few /hpf (None Seen) H Urine Hyaline Casts Few /lpf (0 - 2) Urine Glucose 4+ mg/dL (Normal) H Blood Gas Results Test 06/28/25 06:25 Arterial Blood pH 7.474 (7.350-7.450) FiO2 % 30.0 Microbiology Microbiology Date/Time Source Procedure Growth Status 06/22/25 00:10 Nose MRSA Screen - Final Complete 06/18/25 15:04 Sputum Gram Stain - Final Complete 06/18/25 15:04 Respiratory Culture - Final Klebsiella pneumoniae Leclercia adecarboxylata Enterobacter cloacae Citrobacter farmeri Complete 06/18/25 13:09 Blood Blood Culture - Final NO GROWTH AFTER 5 DAYS OF INCUBATION. Complete Labs and/or images reviewed: Labs reviewed by me, Image(s) reviewed by me Assessment/Plan Assessment/Plan Covering for nurse practitioner Philip Serrato -septic shock -right foot osteomyelitis : Vancomycin cefepime Diflucan -diabetic ketoacidosis -acute hypoxic respiratory failure status post intubated -diabetes mellitus -primary hypertension -acute kidney injury Time spent 54 minutes Advanced care planning time 20 minutes Patient is full code Seen in [facility] Plan discussed with: Patient My Orders Orders - LAURA MATHIS MD Procedure Category Date Status Time Chest Portable XY 06/28/25 Resulted 04:00 Date of Service: Jun 28, 2025 Billing Provider: LAURA MATHIS MD Common Visit Codes: [id number] INP/OBS CARE(HIGH) LAURA MATHIS MD Jun 28, 2025 10:25
--- NOTE | 2025-06-28 14:32 | DVHPN2 ---
Progress Note - Dictate Date Seen: Jun 28, 2025 Medical Necessity Reason Pt with a Central, PICC or Fol: No vital signs Vital Sign Date Time Temp Pulse Resp B/P (MAP) Pulse Ox O2 Delivery O2 Flow Rate FiO2 06/28/25 12:38 101 19 128/69 (88) 98 30 06/28/25 08:00 99.3 210.7 06/28/25 08:00 Mechanical Ventilator+ Total Intake and Output 06/27/25 06/27/25 06/28/25 15:00 23:00 07:00 Intake Total 750 ml 1200 ml 1162.5 ml Output Total 1100 ml 1700 ml Balance 750 ml 100 ml -537.5 ml medications Current Medications Medications Dose Ordered Sig/Philip Route Start Time Stop Time Status Last Admin Dose Admin Propofol 100 ml @ 1.95 mls/hr Q24H IV 06/18/25 14:45 06/26/25 02:58 3.9 MLS/HR Midazolam HCl 50 ml @ 1 mls/hr Q24H IV 06/18/25 14:45 06/25/25 03:56 6 MLS/HR Fentanyl Citrate 250 ml @ 2.5 mls/hr Q24H IV 06/18/25 14:45 06/25/25 02:52 15 MLS/HR Dextrose 50 ml UD PRN IV 06/18/25 17:00 Cancel Vancomycin HCl 0 ml @ 0 mls/hr UD IV 06/18/25 20:30 Ondansetron HCl 4 mg Q4HP PRN IV 06/18/25 20:30 Nitroglycerin 0.4 mg Q5MINP PRN SL 06/18/25 20:30 Morphine Sulfate 2 mg Q30M PRN IV 06/18/25 20:30 Diagnostic Test (Pha) 1 strip Q6HR 06/21/25 12:00 06/28/25 12:31 1 STRIP Insulin Human Regular Q6HR SC 06/21/25 12:00 06/28/25 05:40 2 UNITS Dextrose 50 ml UD PRN IV 06/21/25 11:15 Pantoprazole Sodium 40 mg BID IV 06/21/25 22:00 06/28/25 10:14 40 MG Micafungin Sodium 100 mg/Sodium Chloride 100 ml @ 100 mls/hr DAILY IV 06/22/25 10:15 06/28/25 10:14 100 MLS/HR Enteral Nutritional Formula 1,000 ml 50ML/HR GT 06/23/25 07:00 Potassium Chloride/Sodium Chloride 1,000 ml @ 75 mls/hr [id number] IV 06/23/25 07:00 06/28/25 12:04 75 MLS/HR Purified Water 200 ml Q6HR GT 06/24/25 12:00 06/28/25 12:31 200 ML Insulin Glargine 20 units DAILY SC 06/25/25 10:00 06/28/25 10:15 20 UNITS Acetaminophen 650 mg Q6HP PRN GT 06/25/25 12:30 06/28/25 01:22 650 MG Vancomycin HCl 100 ml @ 100 mls/hr Q24H IV 06/25/25 18:00 06/27/25 17:40 100 MLS/HR Norepinephrine Bitartrate 250 ml @ 1.875 mls/ hr Q24H IV 06/26/25 14:15 06/26/25 16:30 1.875 MLS/HR Cefepime HCl 50 ml @ 12.5 mls/hr Q8HR IV 06/26/25 22:00 06/28/25 05:39 12.5 MLS/HR laboratory and microbiology Laboratory Tests 06/28/25 05:00 Test 06/28/25 05:00 Range/Units Serum Glucose 125 H 74-106 mg/dL Assessment/Plan Impression Acute hypoxemic respiratory failure Altered mental status pneumonia covid 19 Hyperglycemia DKA Patient seen and examined in the ICU Events On mechanical ventilation S/p intubation PEEP 5, FiO2 30% Minimal sedation Labs and imaging reviewed ABG reviewed Management Vent support Titrate to maintain sats 90% or above Sedation holiday daily weaning trial ok to use precedex Continue antibiotics F/u cultures Bronchodilators withhold steroids in view poorly controlled DM Monitor renal function Monitor electrolytes Supplement as needed Pressors as needed for hemodynamic support To maintain a mean arterial pressure of 65 mmHg Glycemic control IV fluids DVT prophylaxis Critical care time 35 minutes Dietary Evaluation Review Comments: 1. glucerna 50/hr, along with Propofol 257kcal provide 100% Protein needs and 128% energy needs. Adding Ryder BID will promote wound healing. 2. Continure TF protocol, 3. Reassess when pt is extubated 4. Advance to CCHO-60 diet when pt passes PROGRAM PROPOSALS COORDINATOR eval. Expected Outcomes/Goals: gradually healed wound, Avoid catabolic syndrome Plan discussed with: Other (Rn) BANDAR CARTWRIGHT MD Jun 28, 2025 14:32
[2025-06-28] MEDS: VANCOMYCIN 750MG KIT 100 ML ONE (18:15)
[2025-06-28] MEDS: VANCOMYCIN 1GM/250ML KIT 250 ML IV ONE (19:46)
--- NOTE | 2025-06-28 21:46 | DVHINCON2 ---
Date of service: Jun 28, [address] Broderick Reason for Consultation Unequal pupil with right pupil fixed History of Present Illness Mr. Nava is a 70 years old gentleman with a history of hypertension, diabetes, status post left BKA, right toe amputation, dementia, he was brought to the [facility] on 06/18/2025 with a chief company of general weakness, hypoglycemia, in the ER, the patient was confirmed to have altered mental status, and respiratory distress (RN note 06/18/25 13:39: The patient was oriented x1, with increased worked of breathing and RR: 29) and the patient was intubated in the emergency room In the hospital, the patient was also found to have DKA, pneumoniae, right foot cellulitis, COVID-19. With appropriate treatment, the patient has been stabilized, off sedation since 06/29/2025 however the patient is not waking up as anticipated Earlier today, the patient was found to have unequal pupil, but on my physical examination in the evening, the pupils equal round, and slightly reactive ABG, 06/18/2025: Metabolic acidosis, 06/19/2025: Compensated metabolic acidosis, 06/22/2025: Compensated metabolic acidosis Blood culture, 06/18/2025: Negative Respiratory culture, 06/18/2025: Klebsiella pneumoniae etc SARS-COV-2 Ag, 06/19/2025: Positive, 06/27/2025: Positive Urinalysis, 06/18/2025: No UTI WBC/HB/PLT/MCV, 06/18/2025: 26.7/14.6/568/113.4, 06/23/2025: 31.6/10 .5/346/94.4, 06/28/2025: 16.5/10/403/95 Glucose, 06/18/2025: > , 600, > 600, 352 Beta hydroxybutyric acid, 06/18/2025: >4.5 Anion gap, 06/18/2025: 26, 21, 16 TBI/AST/ALT/AP, 06/28/2025: 0.6/52/18/530 Chest x-ray, 06/18/2025: No acute cardiopulmonary disease Chest x-ray, 06/18/2025: 1. Endotracheal tube 1.8 cm above the alexis. 2. Right internal jugular line either at the cavoatrial junction or within the right atrium. 3. Enteric tube below the left diaphragm in the stomach 4. No change in the cardiopulmonary findings compared film performed earlier today at 1:48 p.m. Chest x-ray, 06/28/2025: Lines and tubes in satisfactory position. Improving bilateral lung aeration CT, right foot, 06/21/2025: 1. Soft tissue emphysema centered around the residual 1st metatarsal stump. 2. Maintain elevated concern for osteomyelitis. 3. In regards to the clinical question, no definitive measurable absces Past Medical History Hypertension, diabetes, dementia, Past Surgical History Left BKA, right toe amputation Family History: Diabetes mellitus G8 MOTHER G8 FATHER Hypertension G8 MOTHER G8 FATHER Family History Hypertension, diabetes Social History Unobtainable Allergies: Coded Allergies: NO KNOWN ALLERGIES (Unverified , 05/30/25) Home Meds Active Scripts Hydrocodone-Acetaminophen (Hydrocodone/Acetaminophen 5-325 mg) 1 Tab Tab, 1 TAB PO TIDP PRN for 7 Days, #21 TAB 0 Refills Prov:ELIAS BOB MD 06/09/25 Cephalexin (KEFLEX CAPSULE) 250 Mg Cp, 2 CAP PO BID for 14 Days, #56 CAP 0 Refills Prov:ELIAS BOB MD 06/09/25 Review of Systems Unobtainable Vital Signs Vital Signs Date Time Temp Pulse Resp B/P (MAP) Pulse Ox O2 Delivery O2 Flow Rate FiO2 06/28/25 21:15 99.7 102 19 127/72 (90) 97 211.5 06/28/25 20:35 30 06/28/25 20:00 Mechanical Ventilator+ Physical Exam The patient is well-nourished and well-developed with no distress. The patient is intubated HEENT: Normocephalic, neck supple, no carotid bruits Lungs: Clear to auscultation Cardiovascular: Regular rate and region, S1, S2, no murmurs Abdomen: Soft, nontender, normal bowel sounds Status Post left BKA , right toe amputation, signs of gangrene in the right foot MENTAL STATUS: He has been eyes to light painful stimuli, but is nonresponsive to verbal stimuli, visual thread CRANIAL NERVES: Pupils are equal, round and reactive.There are corneal reflexes and doll's eyes phenomenon. No signs of facial weakness. There are gagging or coughing reflexes SENSATION: No responses to pain stimuli. MOTOR: Normal tone in the upper and lower extremity. Normal muscle bulk. No fasciculations. No spontaneous movement. REFLEXES: Deep tendon reflexes are symmetrical. No pathological reflexes. CEREBELLAR/COORDINATION: Deferred GAIT/STATION: deferred. Labs/Diagnostic Data Labs Test 06/28/25 18:20 06/28/25 17:05 06/28/25 06:25 06/28/25 05:00 Range/Units POC Glucose 95 70-106 mg/dl Vancomycin Level Trough 12.9 H 5-10 ug/mL Blood Gas Specimen Type Arterial Blood Gas Sample Site Left brachial Blood Gas Patient Temperature 37.0 Arterial Blood Date Drawn [id number] Arterial Blood pH 7.474 H 7.350-7.450 Arterial Blood Partial Pressure CO2 35.0 35.0-48.0 mmHg Arterial Blood Partial Pressure O2 99.8 83.0-108.0 mmHg Arterial Blood HCO3 25.1 21.0-28.0 mmol/L Arterial Blood Oxygen Saturation 97.6 94.0-98.0 % Arterial Blood Base Excess 1.9 -2.0-3.0 mmol/L Arterial Blood Oxyhemoglobin 96.5 94.0-98.0 % Arterial Blood Carboxyhemoglobin 0.7 0.5-1.5 % Arterial Blood Methemoglobin 0.4 0.0-1.5 % Vicente Test N/a Blood Gas Total Hemoglobin 14.00 13.5-17.5 g/dL Blood Gas Set Respiration Rate 18.0 Blood Gas Modality Vent - ac FiO2 % 30.0 Blood Gas Tidal Volume 400.0 Blood Gas PEEP or CPAP 5.0 White Blood Count 16.5 H 4.4-10.8 10^3/uL Red Blood Count 2.98 L 4.5-5.90 10^6/uL Hemoglobin 10.0 L 13.5-17.5 g/dL Hematocrit 28.3 L 41.0-53.0 % Mean Corpuscular Volume 95.0 80.0-100.0 fL Mean Corpuscular Hemoglobin 33.7 H 28.0-32.0 pg Mean Corpuscular Hemoglobin Concent 35.5 32.0-36.0 g/dL Red Cell Distribution Width 13.4 11.8-14.3 % Platelet Count 403 140-450 10^3/uL Mean Platelet Volume 7.9 6.9-10.8 fL Neutrophils (%) (Auto) 79.1 37.0-80.0 % Lymphocytes (%) (Auto) 12.2 10.0-50.0 % Monocytes (%) (Auto) 7.3 0.0-12.0 % Eosinophils (%) (Auto) 1.0 0.0-7.0 % Basophils (%) (Auto) 0.4 0.0-2.0 % Neutrophils # (Auto) 13.0 H 1.6-8.6 10 ^3/uL Lymphocytes # (Auto) 2.0 0.4-5.4 10 ^3/uL Monocytes # (Auto) 1.2 0-1.3 10 ^3/uL Eosinophils # (Auto) 0.2 0-0.8 10 ^3/uL Basophils # (Auto) 0.1 0-0.2 10 ^3/uL Nucleated Red Blood Cells 0.0 % Sodium Level 138 136-145 mmol/L Potassium Level 3.6 3.5-5.1 mmol/L Chloride Level 102 98-107 mmol/L Carbon Dioxide Level 27 20-31 mmol/L Anion Gap 9 5-15 Blood Urea Nitrogen 14 9-23 mg/dL Creatinine 0.85 0.700-1.30 mg/dL Glomerular Filtration Rate Calc 94 >90 mL/min BUN/Creatinine Ratio 16.5 10.0-20.0 Serum Glucose 125 H 74-106 mg/dL Calcium Level 8.0 L 8.7-10.4 mg/dL Magnesium Level 2.0 1.6-2.6 mg/dL Total Bilirubin 0.6 0.2-1.0 mg/dL Aspartate Amino Transferase (AST) 52 H 13-40 U/L Alanine Aminotransferase (ALT) 18 7-40 U/L Alkaline Phosphatase 530 H 46-116 U/L Total Protein 6.5 5.7-8.2 g/dL Albumin 2.7 L 3.2-4.8 g/dL Test 06/27/25 10:00 06/26/25 08:48 06/25/25 05:15 06/22/25 13:21 Range/Units SARS-CoV-2 Antigen (Rapid) Positive *A NEGATIVE Blood Gas Spontaneous Rate 29 Differential Total Cells Counted 100.0 100 Neutrophils % (Manual) 84 H 37.0-80.0 Band Neutrophils % (Manual) 3 Lymphocytes % (Manual) 9 L 10.0-50.0 Monocytes % (Manual) 3 0-12 Eosinophils % (Manual) 1 0-7 Basophils % (Manual) 0 0.0-2.0 Metamyelocytes % (manual) 0 Myelocytes % (Manual) 0 Promyelocytes % (Manual) 0 Blast Cells % (Manual) 0 Reactive Lymphocytes 0 Platelet Estimate Adequate Random Vancomycin Level 12.8 H 5-10 ug/mL Erythrocyte Sedimentation Rate 107 H 0-20 mm/hr C-Reactive Protein High Sensitivity 16.11 H <1.0 mg/dL Test 06/22/25 07:56 06/22/25 04:47 06/21/25 13:35 06/19/25 07:36 Range/Units Blood Gas Critical Value Read Back Yes Blood Gas Notified Whom vicky Serrato np Blood Gas Notified Time [id number] Blood Gas Notified By hiro Butler rrt Phosphorus Level 3.2 2.4-5.1 mg/dL Beta-Hydroxybutyric Acid 0.292 < 0.4 mmol/L Influenza Type A Antigen Negative Negative Influenza Type B Antigen Negative Negative Test 06/18/25 16:25 06/18/25 15:25 06/18/25 13:37 06/18/25 13:09 Range/Units Troponin I High Sensitivity 55 *H </=54 ng/L Lactic Acid Level 2.3 *H 0.4-2.0 mmol/L Urine Color Light-yellow Yellow Urine Clarity Clear Clear Urine pH 5.5 5.0-9.0 Urine Specific [place] 1.025 1.001-1.035 Urine Protein Trace H Negative Urine Ketones 2+ H Negative Urine Blood Trace H Negative /uL Urine Nitrite Negative Negative Urine Bilirubin Negative Negative Urine Urobilinogen Normal Negative mg/dL Urine Leukocyte Esterase Negative Negative /uL Urine RBC 1 0 - 3 /hpf Urine Microscopic WBC < 1 0-3 /HPF Urine Squamous Epithelial Cells None seen <5 /hpf Urine Bacteria Few H None Seen /hpf Urine Hyaline Casts Few 0 - 2 /lpf Urine Glucose 4+ H Normal mg/dL Hypochromasia (manual) Slight Anisocytosis (manual) Slight Macrocytosis Marked Microbiology Date/Time Source Procedure Growth Status 06/22/25 00:10 Nose MRSA Screen - Final Complete 06/18/25 15:04 Sputum Gram Stain - Final Complete 06/18/25 15:04 Respiratory Culture - Final Klebsiella pneumoniae Leclercia adecarboxylata Enterobacter cloacae Citrobacter farmeri Complete 06/18/25 13:09 Blood Blood Culture - Final NO GROWTH AFTER 5 DAYS OF INCUBATION. Complete Assessment Altered mental status Metabolic encephalopathy secondary to DKA, sepsis Rule out other acute central nervous sleep disorder, less likely Anisocoria, resolved, with uncertain clinical significance Diabetic ketoacidosis Sepsis Metabolic acidosis Left foot cellulitis Left foot osteomyelitis Acute respiratory failure COVID-19 Reported dementia Plan/Recommendation Monitoring Supportive treatment ICU care Vitamin B12, folic acid, TSH CT head Stabilize vitals Respiratory support/vent management Glucose control IV antibiotics Wound Care GI prophylaxis More recommendation per clinical course Prognosis: Guarded Critical care time spent is 45 minutes This medical document was created using an electronic medical record system with [employer] dictation system. Although this document has been carefully reviewed, there may still be some phonetic and typographical errors. These areas are purely typographical due to imperfections of the software programs, and do not reflect any compromise in the patient's medical care. Plan discussed with: Other WELLINGTON KELLY MD Jun 28, 2025 21:46
[2025-06-28 23:33] LABS: Free T4 (Free Thyroxine) 0.94 ng/dL (0.89-1.76)
[2025-06-29] VITALS (101 sets, daily range): BP systolic 94–169; BP diastolic 50–110; PULSE 79–111; RESP 11–33; TEMP 99–100.2; O2SAT 96–100
[2025-06-29 00:51] LABS: Chloride 102 mmol/L (98-107); Potassium 3.6 mmol/L (3.5-5.1); Sodium 138 mmol/L (136-145)
[2025-06-29 00:52] LABS: Anion Gap 8 (5-15); Carbon Dioxide 28 mmol/L (20-31)
[2025-06-29 00:55] LABS: Calcium 8.0 mg/dL (8.7-10.4)
[2025-06-29 00:57] LABS: BUN/Creatinine Ratio 14.6 (10.0-20.0); Blood Urea Nitrogen 12 mg/dL (9-23)
[2025-06-29 01:08] LABS: Glucose 126 mg/dL (74-106)
[2025-06-29] MEDS: SOD CHL 0.45% 1,000 ML IV SCH (05:57)
[2025-06-29 09:06] LABS: Base Excess 4.3 mmol/L (-2.0-3.0)
--- NOTE | 2025-06-29 11:51 | DVHPN2 ---
Subjective Patient chemically sedated Reviewed: Care Plan, H&P, Labs, Medications, Previous Orders, Radiology Changes from previous H/P or p: No Changes General: Per HPI Eyes: No Pain, No Vision change, No Conjunctivae inflammation, No Eyelid inflammation, No Other, No Redness ENT: No Ear pain, No Ear discharge, No Nose pain, No Nose discharge, No Nose congestion, No Mouth pain, No Mouth swelling, No Throat pain, No Throat swelling, No Other Cardiovascular: No Chest Pain, No Palpitations, No Orthopnea, No Paroxysmal Noc. Dyspnea, No Edema, No Lt Headedness; Other (Hypotension) Respiratory: No Cough, No Dry; Shortness of breath; No SOB with excertion, No Wheezing, No Hemoptysis, No Pleuritic Pain, No Sputum, No Other Gastrointestinal: No Nausea, No Vomiting, No Abdominal Pain, No Diarrhea, No Constipation, No Melena, No Hematochezia, No Other Genitourinary: No Dysuria, No Frequency, No Incontinence, No Hematuria, No Retention, No Other Musculoskeletal: other (BKA (LLE), RLE toe amputation); No neck pain, No shoulder pain, No arm pain, No back pain, No hand pain, No leg pain, No foot pain Skin: No Rash, No Lesions, No Jaundice, No Bruising, No Other Objective Vitals Vital Signs Date Time Temp Pulse Resp B/P (MAP) Pulse Ox O2 Delivery O2 Flow Rate FiO2 06/29/25 08:25 111 06/29/25 08:25 18 98 Mechanical Ventilator+ 30 30 06/29/25 08:18 132/78 (96) 06/29/25 07:30 100.2 212.4 Intake/Output Intake and Output 06/29/25 07:00 Intake Total 3549.5 ml Output Total 4025 ml Balance -475.5 ml Intake Oral 800 ml IV Total 2312.5 ml Tube Feeding 437 ml Output Urine Total 4025 ml # Bowel Movements 2 General Appearance: moderate distress, Other (Chemically sedated) HEENT: Atraumatic, PERRLA Lungs: Other (Mechanical ventilation) Cardiovascular: Normal S1, Normal S2 Abdomen: Normal bowel sounds, Soft, No tenderness, No hepatospenomegaly Genitourinary: No Apparent Abnormalities (Garcia catheter) Musculoskeletal: Other (Unable to assess) Extremities: Normal pulses, Other (Right foot with worsening gangrene) Neuro: Other (Unable to assess) Skin: Other (Right foot gangrene. Status post surgery) Psych/Mental Status: Other (Unable to assess) Medications Current Medications Medications Dose Ordered Sig/Philip Route Start Time Stop Time Status Last Admin Dose Admin Propofol 100 ml @ 1.95 mls/hr Q24H IV 06/18/25 14:45 06/26/25 02:58 3.9 MLS/HR Midazolam HCl 50 ml @ 1 mls/hr Q24H IV 06/18/25 14:45 06/25/25 03:56 6 MLS/HR Fentanyl Citrate 250 ml @ 2.5 mls/hr Q24H IV 06/18/25 14:45 06/25/25 02:52 15 MLS/HR Dextrose 50 ml UD PRN IV 06/18/25 17:00 Cancel Vancomycin HCl 0 ml @ 0 mls/hr UD IV 06/18/25 20:30 Ondansetron HCl 4 mg Q4HP PRN IV 06/18/25 20:30 Nitroglycerin 0.4 mg Q5MINP PRN SL 06/18/25 20:30 Morphine Sulfate 2 mg Q30M PRN IV 06/18/25 20:30 Diagnostic Test (Pha) 1 strip Q6HR 06/21/25 12:00 06/29/25 05:58 1 STRIP Insulin Human Regular Q6HR SC 06/21/25 12:00 06/29/25 06:21 2 UNITS Dextrose 50 ml UD PRN IV 06/21/25 11:15 Pantoprazole Sodium 40 mg BID IV 06/21/25 22:00 06/29/25 10:24 40 MG Micafungin Sodium 100 mg/Sodium Chloride 100 ml @ 100 mls/hr DAILY IV 06/22/25 10:15 06/29/25 10:24 100 MLS/HR Enteral Nutritional Formula 1,000 ml 50ML/HR GT 06/23/25 07:00 Purified Water 200 ml Q6HR GT 06/24/25 12:00 06/29/25 05:57 200 ML Insulin Glargine 20 units DAILY SC 06/25/25 10:00 06/29/25 10:22 20 UNITS Acetaminophen 650 mg Q6HP PRN GT 06/25/25 12:30 06/28/25 01:22 650 MG Norepinephrine Bitartrate 250 ml @ 1.875 mls/ hr Q24H IV 06/26/25 14:15 06/26/25 16:30 1.875 MLS/HR Cefepime HCl 50 ml @ 12.5 mls/hr Q8HR IV 06/26/25 22:00 06/29/25 05:57 12.5 MLS/HR Sodium Chloride 1,000 ml @ 75 mls/hr [id number] IV 06/29/25 01:30 06/29/25 05:57 75 MLS/HR Laboratory Results Laboratory Tests 06/28/25 05:00 06/29/25 00:34 06/29/25 06:00 Chemistry Test 06/29/25 00:34 Calcium Level 8.0 mg/dL (8.7-10.4) L HgA1c, TSH Test 06/28/25 17:05 Thyroid Stimulating Hormone (TSH) 2.16 uIU/mL (0.55-4.78) Urinalysis Test 06/18/25 13:37 Urine Color Light-yellow (Yellow) Urine Clarity Clear (Clear) Urine pH 5.5 (5.0-9.0) Urine Specific [place] 1.025 (1.001-1.035) Urine Protein Trace (Negative) H Urine Ketones 2+ (Negative) H Urine Blood Trace /uL (Negative) H Urine Nitrite Negative (Negative) Urine Bilirubin Negative (Negative) Urine Urobilinogen Normal mg/dL (Negative) Urine Leukocyte Esterase Negative /uL (Negative) Urine RBC 1 /hpf (0 - 3) Urine Microscopic WBC < 1 /HPF (0-3) Urine Squamous Epithelial Cells None seen /hpf (<5) Urine Bacteria Few /hpf (None Seen) H Urine Hyaline Casts Few /lpf (0 - 2) Urine Glucose 4+ mg/dL (Normal) H Blood Gas Results Test 06/29/25 09:00 Arterial Blood pH 7.528 (7.350-7.450) FiO2 % 30.0 Microbiology Microbiology Date/Time Source Procedure Growth Status 06/22/25 00:10 Nose MRSA Screen - Final Complete 06/18/25 15:04 Sputum Gram Stain - Final Complete 06/18/25 15:04 Respiratory Culture - Final Klebsiella pneumoniae Leclercia adecarboxylata Enterobacter cloacae Citrobacter farmeri Complete 06/18/25 13:09 Blood Blood Culture - Final NO GROWTH AFTER 5 DAYS OF INCUBATION. Complete Labs and/or images reviewed: Labs reviewed by me, Image(s) reviewed by me Assessment/Plan Assessment/Plan Impression: -septic shock -right foot osteomyelitis -diabetic ketoacidosis -acute hypoxic respiratory failure -diabetes mellitus -primary hypertension -acute kidney injury Plan: Events: Patient is slow to awaken off sedation. Pending CT scan of the head. Spontaneous breathing trial once appropriate. -weaned sedation, spontaneous breathing trial -potassium replacement -continue free water -regular insulin sliding scale, increase Lantus to 20 units -Glucerna 50 mL/hour -Protonix 40 mg IV b.i.d. -continue vancomycin, cefepime, Diflucan -rosales cultures: Respiratory cultures reviewed. -continue current ventilator setting -repeat labs, chest x-ray, ABG in a.m.. Critical care time spent with patient discussing and formulating plan of care: 90 minutes. This does not include time spent performing procedures. This medical document was created using an electronic medical record system with [employer] dictation system. Although this document has been carefully reviewed, there may still be some phonetic and typographical errors. These areas are purely typographical due to imperfections of the software programs, and do not reflect any compromise in the patient's medical care. Plan discussed with: Patient, Other (RN) My Orders Orders - MAINE VELAZCO NP Procedure Category Date Status Time Abg W/ Co-Ox RT 06/29/25 Logged 06:00 Complete Blood Count LAB 06/30/25 Verified 04:00 Date of Service: Jun 29, 2025 Billing Provider: MAINE VELAZCO NP Common Visit Codes: [id number] INP/OBS CARE(HIGH) MAINE VELAZCO NP Jun 29, 2025 11:51
--- NOTE | 2025-06-29 12:02 | DVH ---
EXAM: CT HEAD WITHOUT CONTRAST INDICATION: ALOC, anisocoria TECHNIQUE: CT of the head without intravenous contrast. Radiation Dose Information: CT Dose: CTDI volume is 53.68 mGy. Dose-length product is 1184.46 mGy*cm The dose indicators for CT are the volume Computed Tomography (CT) Dose Index (CTDIvol) and the Dose Length Product (DLP), and are measured in units of mGy and mGy-cm, respectively. These indicators are not patient dose, but values generated from the CT scanner acquisition factors. The report includes radiation exposure data for exposures received during this examination. COMPARISON: None FINDINGS: There is no evidence of acute intracranial hemorrhage, extra-axial collection, mass effect, midline s hift, herniation or hydrocephalus. The ventricles, sulci and cisterns are age appropriate. The [place]-white differentiation is intact. Patchy periventricular and subcortical white matter hypoattenuation is nonspecific but may be related to small vessel ischemic disease. The visualized paranasal sinuses and mastoid air cells are clear. The surrounding soft tissues and osseous structures are unremarkable. IMPRESSION: No acute intracranial abnormality.
[2025-06-29] MEDS: VANCOMYCIN 750MG KIT 100 ML IV ONE (13:13)
--- NOTE | 2025-06-29 22:04 | DVHPN2 ---
Progress Note - Dictate Date Seen: Jun 29, 2025 Medical Necessity Reason Pt with a Central, PICC or Fol: No Subjective Mr. Nava is a 70 years old gentleman with a history of hypertension, diabetes, status post left BKA, right toe amputation, dementia, he was brought to the [facility] on 06/18/2025 with a chief company of general weakness, hypoglycemia, in the ER, the patient was confirmed to have altered mental status, and respiratory distress (RN note 06/18/25 13:39: The patient was oriented x1, with increased worked of breathing and RR: 29) and the patient was intubated in the emergency room In the hospital, the patient was also found to have DKA, pneumoniae, right foot cellulitis, COVID-19. With appropriate treatment, the patient has been stabilized, off sedation since 06/29/2025 however the patient is not waking up as anticipated I have seen and examined the patient in the ICU, I have discussed with her nurse and other medical staff. Intubated, not on sedation, he moves the arms and legs a little bit, he open the eyes to , a little bit conjugated eye movement noticed, pupils equal round, and reactive, he is nonresponsive to verbal stimuli and, visual thread ABG, 06/18/2025: Metabolic acidosis, 06/19/2025: Compensated metabolic acidosis, 06/22/2025: Compensated metabolic acidosis Blood culture, 06/18/2025: Negative Respiratory culture, 06/18/2025: Klebsiella pneumoniae etc SARS-COV-2 Ag, 06/19/2025: Positive, 06/27/2025: Positive Urinalysis, 06/18/2025: No UTI WBC/HB/PLT/MCV, 06/18/2025: 26.7/14.6/568/113.4, 06/23/2025: 31.6/10.5/346/94.4, 06/28/2025: 16.5/10/403/95 Glucose, 06/18/2025: > , 600, > 600, 352 Beta hydroxybutyric acid, 06/18/2025: >4.5 Anion gap, 06/18/2025: 26, 21, 16 TBI/AST/ALT/AP, 06/28/2025: 0.6/52/18/530 Vitamin B12, 06/25/2025: 1816 Folic acid, 06/28/25: 8.18 TSH, 06/28/2025: 2.16 FT4, 06/28/2025: 0.94 Chest x-ray, 06/18/2025: No acute cardiopulmonary disease Chest x-ray, 06/18/2025: 1. Endotracheal tube 1.8 cm above the alexis. 2. Right internal jugular line either at the cavoatrial junction or within the right atrium. 3. Enteric tube below the left diaphragm in the stomach 4. No change in the cardiopulmonary findings compared film performed earlier today at 1:48 p.m. Chest x-ray, 06/28/2025: Lines and tubes in satisfactory position. Improving bilateral lung aeration CT, right foot, 06/21/2025: 1. Soft tissue emphysema centered around the residual 1st metatarsal stump. 2. Maintain elevated concern for osteomyelitis. 3. In regards to the clinical question, no definitive measurable absces CT head, 06/29/2025: No acute intracranial abnormality vital signs Vital Sign Date Time Temp Pulse Resp B/P (MAP) Pulse Ox O2 Delivery O2 Flow Rate FiO2 06/29/25 21:00 99.3 87 21 130/69 (89) 98 210.7 06/29/25 20:22 30 06/29/25 20:00 Mechanical Ventilator+ Total Intake and Output 06/28/25 06/28/25 06/29/25 15:00 23:00 07:00 Intake Total 737.5 ml 1527.5 ml 1284.5 ml Output Total 1225 ml 2800 ml Balance 737.5 ml 302.5 ml -1515.5 ml medications Current Medications Medications Dose Ordered Sig/Philip Route Start Time Stop Time Status Last Admin Dose Admin Midazolam HCl 50 ml @ 1 mls/hr Q24H IV 06/18/25 14:45 06/25/25 03:56 6 MLS/HR Dextrose 50 ml UD PRN IV 06/18/25 17:00 Cancel Vancomycin HCl 0 ml @ 0 mls/hr UD IV 06/18/25 20:30 Ondansetron HCl 4 mg Q4HP PRN IV 06/18/25 20:30 Nitroglycerin 0.4 mg Q5MINP PRN SL 06/18/25 20:30 Morphine Sulfate 2 mg Q30M PRN IV 06/18/25 20:30 Diagnostic Test (Pha) 1 strip Q6HR 06/21/25 12:00 06/29/25 18:00 1 STRIP Insulin Human Regular Q6HR SC 06/21/25 12:00 06/29/25 06:21 2 UNITS Dextrose 50 ml UD PRN IV 06/21/25 11:15 Pantoprazole Sodium 40 mg BID IV 06/21/25 22:00 06/29/25 21:46 40 MG Micafungin Sodium 100 mg/Sodium Chloride 100 ml @ 100 mls/hr DAILY IV 06/22/25 10:15 06/29/25 10:24 100 MLS/HR Enteral Nutritional Formula 1,000 ml 50ML/HR GT 06/23/25 07:00 Purified Water 200 ml Q6HR GT 06/24/25 12:00 06/29/25 18:00 200 ML Insulin Glargine 20 units DAILY SC 06/25/25 10:00 06/29/25 10:22 20 UNITS Acetaminophen 650 mg Q6HP PRN GT 06/25/25 12:30 06/28/25 01:22 650 MG Norepinephrine Bitartrate 250 ml @ 1.875 mls/ hr Q24H IV 06/26/25 14:15 06/26/25 16:30 1.875 MLS/HR Cefepime HCl 50 ml @ 12.5 mls/hr Q8HR IV 06/26/25 22:00 06/29/25 21:46 12.5 MLS/HR Sodium Chloride 1,000 ml @ 75 mls/hr [id number] IV 06/29/25 01:30 06/29/25 15:52 75 MLS/HR objective The patient is well-nourished and well-developed with no distress. The patient is intubated Status Post left BKA , right toe amputation, signs of gangrene in the right foot MENTAL STATUS: Subjective CRANIAL NERVES: Pupils are equal, round and reactive.There are corneal reflexes and doll's eyes phenomenon. No signs of facial weakness. There are gagging or coughing reflexes SENSATION: No responses to pain stimuli. MOTOR: Normal tone in the upper and lower extremity. Normal muscle bulk. No fasciculations. No spontaneous movement. REFLEXES: Deep tendon reflexes are symmetrical. No pathological reflexes. CEREBELLAR/COORDINATION: Deferred GAIT/STATION: deferred. laboratory and microbiology Laboratory Tests 06/29/25 06:00 06/29/25 00:34 06/28/25 05:00 Test 06/29/25 00:34 Range/Units Serum Glucose 126 H 74-106 mg/dL Problem List Altered mental status Metabolic encephalopathy secondary to DKA, sepsis Rule out other acute central nervous sleep disorder, less likely Anisocoria, resolved, with uncertain clinical significance Diabetic ketoacidosis Sepsis Metabolic acidosis Left foot cellulitis Left foot osteomyelitis Acute respiratory failure COVID-19 Reported dementia Assessment/Plan Monitoring Supportive treatment ICU care Stabilize vitals Respiratory support/vent management Oxygen Glucose control IV antibiotics Wound Care GI prophylaxis More recommendation per clinical course This medical document was created using an electronic medical record system with [employer] dictation system. Although this document has been carefully reviewed, there may still be some phonetic and typographical errors. These areas are purely typographical due to imperfections of the software programs, and do not reflect any compromise in the patient's medical care. Prognosis guarded Dietary Evaluation Review Comments: 1. glucerna 50/hr, along with Propofol 257kcal provide 100% Protein needs and 128% energy needs. Adding Ryder BID will promote wound healing. 2. Continure TF protocol, 3. Reassess when pt is extubated 4. Advance to CCHO-60 diet when pt passes GAS TORCH SOLDERER eval. Expected Outcomes/Goals: gradually healed wound, Avoid catabolic syndrome Plan discussed with: Other Critical Care Time(min): 30 WELLINGTON KELLY MD Jun 29, 2025 22:03
[2025-06-30] VITALS (97 sets, daily range): BP systolic 70–151; BP diastolic 48–94; PULSE 87–104; RESP 12–100; TEMP 99.3–100; O2SAT 95–100
[2025-06-30] MEDS: Glucerna 1.2 Cal 1Liter BOTTLE GT SCH (02:30)
[2025-06-30 05:35] LABS: Chloride 102 mmol/L (98-107); Sodium 140 mmol/L (136-145)
[2025-06-30 05:36] LABS: Anion Gap 9 (5-15); Carbon Dioxide 29 mmol/L (20-31)
[2025-06-30 05:38] LABS: Hematocrit 26.4 % (41.0-53.0); Hemoglobin 9.2 g/dL (13.5-17.5); Mean Corpuscular Hemoglobin 33.0 pg (28.0-32.0); Mean Corpuscular Volume 94.8 fL (80.0-100.0); Nucleated Red Blood Cells % 0.0 %
[2025-06-30 05:42] LABS: BUN/Creatinine Ratio 16.7 (10.0-20.0); Blood Urea Nitrogen 12 mg/dL (9-23)
[2025-06-30 05:55] LABS: Calcium 7.5 mg/dL (8.7-10.4); Glucose 50 mg/dL (74-106); Potassium 3.5 mmol/L (3.5-5.1)
[2025-06-30 06:05] LABS: Base Excess 3.9 mmol/L (-2.0-3.0)
--- NOTE | 2025-06-30 06:09 | DVH ---
CHEST RADIOGRAPH Indication: ventilated Technique: Single frontal view of the chest was obtained Comparison: Chest radiograph dated 06/28/2025. FINDINGS: Lines and Tubes: The endotracheal tube terminates 3.0 cm above the alexis. The enteric tube terminate s in the stomach. Right central venous catheter terminates in the superior cavoatrial junction. Lungs: No focal consolidation. Pleura: No effusion. No pneumothorax. Cardiomediastinal contours: Unremarkable Bones: No acute osseous abnormality. IMPRESSION: 1. Stable position of the support lines and tubes. 2. No acute cardiopulmonary disease.
--- NOTE | 2025-06-30 09:40 | DVHPN2 ---
Subjective Patient chemically sedated Reviewed: Care Plan, H&P, Labs, Medications, Previous Orders, Radiology Changes from previous H/P or p: No Changes General: Per HPI Eyes: No Pain, No Vision change, No Conjunctivae inflammation, No Eyelid inflammation, No Other, No Redness ENT: No Ear pain, No Ear discharge, No Nose pain, No Nose discharge, No Nose congestion, No Mouth pain, No Mouth swelling, No Throat pain, No Throat swelling, No Other Cardiovascular: No Chest Pain, No Palpitations, No Orthopnea, No Paroxysmal Noc. Dyspnea, No Edema, No Lt Headedness; Other (Hypotension) Respiratory: No Cough, No Dry; Shortness of breath; No SOB with excertion, No Wheezing, No Hemoptysis, No Pleuritic Pain, No Sputum, No Other Gastrointestinal: No Nausea, No Vomiting, No Abdominal Pain, No Diarrhea, No Constipation, No Melena, No Hematochezia, No Other Genitourinary: No Dysuria, No Frequency, No Incontinence, No Hematuria, No Retention, No Other Musculoskeletal: other (BKA (LLE), RLE toe amputation); No neck pain, No shoulder pain, No arm pain, No back pain, No hand pain, No leg pain, No foot pain Skin: No Rash, No Lesions, No Jaundice, No Bruising, No Other Objective Vitals Vital Signs Date Time Temp Pulse Resp B/P (MAP) Pulse Ox O2 Delivery O2 Flow Rate FiO2 06/30/25 09:20 100 18 121/90 (100) 100 30 06/30/25 06:30 99.7 211.5 06/30/25 06:00 Mechanical Ventilator+ Intake/Output Intake and Output 06/30/25 07:00 Intake Total 2206 ml Output Total 4500 ml Balance -2294 ml Intake Oral 500 ml IV Total 1075 ml Tube Feeding 631 ml Output Urine Total 4500 ml # Bowel Movements 3 General Appearance: moderate distress, Other (Chemically sedated) HEENT: Atraumatic, PERRLA Lungs: Other (Mechanical ventilation) Cardiovascular: Normal S1, Normal S2 Abdomen: Normal bowel sounds, Soft, No tenderness, No hepatospenomegaly Genitourinary: No Apparent Abnormalities (Garcia catheter) Musculoskeletal: Other (Unable to assess) Extremities: Normal pulses, Other (Right foot with worsening gangrene) Neuro: Other (Unable to assess) Skin: Other (Right foot gangrene. Status post surgery) Psych/Mental Status: Other (Unable to assess) Medications Current Medications Medications Dose Ordered Sig/Philip Route Start Time Stop Time Status Last Admin Dose Admin Midazolam HCl 50 ml @ 1 mls/hr Q24H IV 06/18/25 14:45 06/25/25 03:56 6 MLS/HR Dextrose 50 ml UD PRN IV 06/18/25 17:00 Cancel Vancomycin HCl 0 ml @ 0 mls/hr UD IV 06/18/25 20:30 Ondansetron HCl 4 mg Q4HP PRN IV 06/18/25 20:30 Nitroglycerin 0.4 mg Q5MINP PRN SL 06/18/25 20:30 Morphine Sulfate 2 mg Q30M PRN IV 06/18/25 20:30 Diagnostic Test (Pha) 1 strip Q6HR 06/21/25 12:00 06/30/25 05:30 1 STRIP Insulin Human Regular Q6HR SC 06/21/25 12:00 06/29/25 06:21 2 UNITS Dextrose 50 ml UD PRN IV 06/21/25 11:15 Pantoprazole Sodium 40 mg BID IV 06/21/25 22:00 06/29/25 21:46 40 MG Micafungin Sodium 100 mg/Sodium Chloride 100 ml @ 100 mls/hr DAILY IV 06/22/25 10:15 06/29/25 10:24 100 MLS/HR Enteral Nutritional Formula 1,000 ml 50ML/HR GT 06/23/25 07:00 06/30/25 02:30 1,000 ML Purified Water 200 ml Q6HR GT 06/24/25 12:00 06/30/25 05:30 200 ML Acetaminophen 650 mg Q6HP PRN GT 06/25/25 12:30 06/28/25 01:22 650 MG Norepinephrine Bitartrate 250 ml @ 1.875 mls/ hr Q24H IV 06/26/25 14:15 06/26/25 16:30 1.875 MLS/HR Cefepime HCl 50 ml @ 12.5 mls/hr Q8HR IV 06/26/25 22:00 06/30/25 05:31 12.5 MLS/HR Laboratory Results Laboratory Tests 06/30/25 04:25 Chemistry Test 06/30/25 04:25 Calcium Level 7.5 mg/dL (8.7-10.4) L Urinalysis Test 06/18/25 13:37 Urine Color Light-yellow (Yellow) Urine Clarity Clear (Clear) Urine pH 5.5 (5.0-9.0) Urine Specific Early 1.025 (1.001-1.035) Urine Protein Trace (Negative) H Urine Ketones 2+ (Negative) H Urine Blood Trace /uL (Negative) H Urine Nitrite Negative (Negative) Urine Bilirubin Negative (Negative) Urine Urobilinogen Normal mg/dL (Negative) Urine Leukocyte Esterase Negative /uL (Negative) Urine RBC 1 /hpf (0 - 3) Urine Microscopic WBC < 1 /HPF (0-3) Urine Squamous Epithelial Cells None seen /hpf (<5) Urine Bacteria Few /hpf (None Seen) H Urine Hyaline Casts Few /lpf (0 - 2) Urine Glucose 4+ mg/dL (Normal) H Blood Gas Results Test 06/30/25 06:02 Arterial Blood pH 7.535 (7.350-7.450) FiO2 % 30.0 Microbiology Microbiology Date/Time Source Procedure Growth Status 06/22/25 00:10 Nose MRSA Screen - Final Complete 06/18/25 15:04 Sputum Gram Stain - Final Complete 06/18/25 15:04 Respiratory Culture - Final Klebsiella pneumoniae Leclercia adecarboxylata Enterobacter cloacae Citrobacter farmeri Complete 06/18/25 13:09 Blood Blood Culture - Final NO GROWTH AFTER 5 DAYS OF INCUBATION. Complete Labs and/or images reviewed: Labs reviewed by me, Image(s) reviewed by me Assessment/Plan Assessment/Plan Impression: -septic shock -right foot osteomyelitis -diabetic ketoacidosis -acute hypoxic respiratory failure -diabetes mellitus -primary hypertension -acute kidney injury Plan: Events: Patient continues to have encephalopathy. Acceptable CPAP trial. Patient is still not following commands. Continue with spontaneous breathing trial at this time. Patient also found to have hypoglycemia. Lantus will be stopped. Start D5 NS with potassium supplementation -continue daily CPAP trial -regular insulin sliding scale, stop Lantus -Glucerna 50 mL/hour -Protonix 40 mg IV b.i.d. -continue vancomycin, cefepime, Diflucan -rosales cultures: Respiratory cultures reviewed. -continue current ventilator setting -repeat labs, chest x-ray, ABG in a.m.. Critical care time spent with patient discussing and formulating plan of care: 90 minutes. This does not include time spent performing procedures. This medical document was created using an electronic medical record system with [employer] dictation system. Although this document has been carefully reviewed, there may still be some phonetic and typographical errors. These areas are purely typographical due to imperfections of the software programs, and do not reflect any compromise in the patient's medical care. Plan discussed with: Patient, Other (RN) My Orders Orders - MAINE VELAZCO NP Procedure Category Date Status Time Cpap/Sed Vacation Med ORDERS 06/29/25 Transmitted Weaning 11:49 Cpap Trial For Am ORDERS 06/29/25 Transmitted 11:49 Abg W/ Co-Ox RT 06/30/25 Logged 05:24 Cpap Trial For Am ORDERS 06/30/25 Transmitted 07:05 Cpap/Sed Vacation Med ORDERS 06/30/25 Transmitted Weaning 09:19 Cpap Trial For Am ORDERS 06/30/25 Transmitted 09:19 D5w/Sod Chl 0.9%/Kcl PHA 06/30/25 Logged [id number] 09:30 Date of Service: Jun 30, 2025 Billing Provider: MAINE VELAZCO NP Common Visit Codes: 71048-[id number] CARE 30-74 MIN MAINE VELAZCO NP Jun 30, 2025 09:40
[2025-06-30] MEDS: D5W/SOD CHL 0.9%/KCL 40MEQ 1,000 ML IV ONE (10:15)
--- NOTE | 2025-06-30 12:22 | DVHPN2 ---
Progress Note - Dictate Date Seen: Jun 30, 2025 Medical Necessity Reason Pt with a Central, PICC or Fol: No vital signs Vital Sign Date Time Temp Pulse Resp B/P (MAP) Pulse Ox O2 Delivery O2 Flow Rate FiO2 06/30/25 10:57 97 16 109/60 (76) 100 30 06/30/25 06:30 99.7 211.5 06/30/25 06:00 Mechanical Ventilator+ Total Intake and Output 06/29/25 06/29/25 06/30/25 15:00 23:00 07:00 Intake Total 555 ml 1651 ml Output Total 1950 ml 2550 ml Balance -1395 ml -899 ml medications Current Medications Medications Dose Ordered Sig/Philip Route Start Time Stop Time Status Last Admin Dose Admin Midazolam HCl 50 ml @ 1 mls/hr Q24H IV 06/18/25 14:45 06/25/25 03:56 6 MLS/HR Dextrose 50 ml UD PRN IV 06/18/25 17:00 Cancel Vancomycin HCl 0 ml @ 0 mls/hr UD IV 06/18/25 20:30 Ondansetron HCl 4 mg Q4HP PRN IV 06/18/25 20:30 Nitroglycerin 0.4 mg Q5MINP PRN SL 06/18/25 20:30 Morphine Sulfate 2 mg Q30M PRN IV 06/18/25 20:30 Diagnostic Test (Pha) 1 strip Q6HR 06/21/25 12:00 06/30/25 11:27 1 STRIP Insulin Human Regular Q6HR SC 06/21/25 12:00 06/29/25 06:21 2 UNITS Dextrose 50 ml UD PRN IV 06/21/25 11:15 Pantoprazole Sodium 40 mg BID IV 06/21/25 22:00 06/30/25 10:17 40 MG Micafungin Sodium 100 mg/Sodium Chloride 100 ml @ 100 mls/hr DAILY IV 06/22/25 10:15 06/30/25 10:17 100 MLS/HR Enteral Nutritional Formula 1,000 ml 50ML/HR GT 06/23/25 07:00 06/30/25 02:30 1,000 ML Purified Water 200 ml Q6HR GT 06/24/25 12:00 06/30/25 05:30 200 ML Acetaminophen 650 mg Q6HP PRN GT 06/25/25 12:30 06/28/25 01:22 650 MG Norepinephrine Bitartrate 250 ml @ 1.875 mls/ hr Q24H IV 06/26/25 14:15 06/26/25 16:30 1.875 MLS/HR Cefepime HCl 50 ml @ 12.5 mls/hr Q8HR IV 06/26/25 22:00 06/30/25 05:31 12.5 MLS/HR laboratory and microbiology Laboratory Tests 06/30/25 04:25 Test 06/30/25 04:25 Range/Units Serum Glucose 50 L 74-106 mg/dL Assessment/Plan Impression Acute hypoxemic respiratory failure Altered mental status pneumonia covid 19 Hyperglycemia DKA Patient seen and examined in the ICU Events On mechanical ventilation S/p intubation PEEP 5, FiO2 30% pt tolerating cpap extubation risky due to altered MS family contemplating changing goals of care Labs and imaging reviewed ABG reviewed Management Vent support Titrate to maintain sats 90% or above Continue antibiotics F/u cultures Bronchodilators withhold steroids in view poorly controlled DM Monitor renal function Monitor electrolytes Supplement as needed Pressors as needed for hemodynamic support To maintain a mean arterial pressure of 65 mmHg Glycemic control IV fluids DVT prophylaxis Critical care time 35 minutes Dietary Evaluation Review Comments: 1. glucerna 50/hr, along with Propofol 257kcal provide 100% Protein needs and 128% energy needs. Adding Ryder BID will promote wound healing. 2. Continure TF protocol, 3. Reassess when pt is extubated 4. Advance to CCHO-60 diet when pt passes BUTTON RECLAIMER eval. Expected Outcomes/Goals: gradually healed wound, Avoid catabolic syndrome Plan discussed with: Other (rn) BANDAR CARTWRIGHT MD Jun 30, 2025 12:22
[2025-06-30] MEDS: VANCOMYCIN 1GM/250ML KIT 250 ML IV ONE (14:15)
--- NOTE | 2025-06-30 22:06 | DVHPN2 ---
Progress Note - Dictate Date Seen: Jun 30, 2025 Medical Necessity Reason Pt with a Central, PICC or Fol: No Subjective Mr. Nava is a 70 years old gentleman with a history of hypertension, diabetes, status post left BKA, right toe amputation, dementia, he was brought to the [facility] on 06/18/2025 with a chief company of general weakness, hypoglycemia, in the ER, the patient was confirmed to have altered mental status, and respiratory distress (RN note 06/18/25 13:39: The patient was oriented x1, with increased worked of breathing and RR: 29) and the patient was intubated in the emergency room In the hospital, the patient was also found to have DKA, pneumoniae, right foot cellulitis, COVID-19. With appropriate treatment, the patient has been stabilized, off sedation since 06/29/2025 however the patient is not waking up as anticipated I have seen and examined the patient in the ICU, I have discussed with her nurses and other medical staff. He is Intubated, not on sedation, he moves the arms and legs, but he has excessive movement when they returned in the evening. Eyes are closed, a little bit conjugated eye movement noticed when they opened the eyes. Nurse related but I can not confirm he is responsive to Slovenian greeting ABG, 06/18/2025: Metabolic acidosis, 06/19/2025: Compensated metabolic acidosis, 06/22/2025: Compensated metabolic acidosis Blood culture, 06/18/2025: Negative Respiratory culture, 06/18/2025: Klebsiella pneumoniae etc SARS-COV-2 Ag, 06/19/2025: Positive, 06/27/2025: Positive Urinalysis, 06/18/2025: No UTI WBC/HB/PLT/MCV, 06/18/2025: 26.7/14.6/568/113.4, 06/23/2025: 31.6/10.5/346/94.4, 06/28/2025: 16.5/10/403/95 Glucose, 06/18/2025: > , 600, > 600, 352 Beta hydroxybutyric acid, 06/18/2025: >4.5 Anion gap, 06/18/2025: 26, 21, 16 TBI/AST/ALT/AP, 06/28/2025: 0.6/52/18/530 Vitamin B12, 06/25/2025: 1816 Folic acid, 06/28/25: 8.18 TSH, 06/28/2025: 2.16 FT4, 06/28/2025: 0.94 Chest x-ray, 06/18/2025: No acute cardiopulmonary disease Chest x-ray, 06/18/2025: 1. Endotracheal tube 1.8 cm above the alexis. 2. Right internal jugular line either at the cavoatrial junction or within the right atrium. 3. Enteric tube below the left diaphragm in the stomach 4. No change in the cardiopulmonary findings compared film performed earlier today at 1:48 p.m. Chest x-ray, 06/28/2025: Lines and tubes in satisfactory position. Improving bilateral lung aeration CT, right foot, 06/21/2025: 1. Soft tissue emphysema centered around the residual 1st metatarsal stump. 2. Maintain elevated concern for osteomyelitis. 3. In regards to the clinical question, no definitive measurable absces CT head, 06/29/2025: No acute intracranial abnormality vital signs Vital Sign Date Time Temp Pulse Resp B/P (MAP) Pulse Ox O2 Delivery O2 Flow Rate FiO2 06/30/25 21:45 99.5 91 21 144/66 (92) 98 211.1 06/30/25 20:20 30 06/30/25 20:00 Mechanical Ventilator+ Total Intake and Output 06/29/25 06/29/25 06/30/25 15:00 23:00 07:00 Intake Total 555 ml 1651 ml Output Total 1950 ml 2550 ml Balance -1395 ml -899 ml medications Current Medications Medications Dose Ordered Sig/Philip Route Start Time Stop Time Status Last Admin Dose Admin Midazolam HCl 50 ml @ 1 mls/hr Q24H IV 06/18/25 14:45 06/25/25 03:56 6 MLS/HR Dextrose 50 ml UD PRN IV 06/18/25 17:00 Cancel Vancomycin HCl 0 ml @ 0 mls/hr UD IV 06/18/25 20:30 Ondansetron HCl 4 mg Q4HP PRN IV 06/18/25 20:30 Nitroglycerin 0.4 mg Q5MINP PRN SL 06/18/25 20:30 Morphine Sulfate 2 mg Q30M PRN IV 06/18/25 20:30 Diagnostic Test (Pha) 1 strip Q6HR 06/21/25 12:00 06/30/25 17:14 1 STRIP Insulin Human Regular Q6HR SC 06/21/25 12:00 06/30/25 17:17 2 UNITS Dextrose 50 ml UD PRN IV 06/21/25 11:15 Pantoprazole Sodium 40 mg BID IV 06/21/25 22:00 06/30/25 21:37 40 MG Micafungin Sodium 100 mg/Sodium Chloride 100 ml @ 100 mls/hr DAILY IV 06/22/25 10:15 06/30/25 10:17 100 MLS/HR Enteral Nutritional Formula 1,000 ml 50ML/HR GT 06/23/25 07:00 06/30/25 02:30 1,000 ML Purified Water 200 ml Q6HR GT 06/24/25 12:00 06/30/25 05:30 200 ML Acetaminophen 650 mg Q6HP PRN GT 06/25/25 12:30 06/28/25 01:22 650 MG Norepinephrine Bitartrate 250 ml @ 1.875 mls/ hr Q24H IV 06/26/25 14:15 06/26/25 16:30 1.875 MLS/HR Cefepime HCl 50 ml @ 12.5 mls/hr Q8HR IV 06/26/25 22:00 06/30/25 21:37 12.5 MLS/HR objective The patient is well-nourished and well-developed with no distress. The patient is intubated Status Post left BKA , right toe amputation, signs of gangrene in the right foot MENTAL STATUS: Subjective CRANIAL NERVES: Pupils are equal, round and reactive.There are corneal reflexes and doll's eyes phenomenon. No signs of facial weakness. There are gagging or coughing reflexes SENSATION: No responses to pain stimuli. MOTOR: Normal tone in the upper and lower extremity. Normal muscle bulk. No fasciculations. He moves the extremities excessively REFLEXES: Deep tendon reflexes are symmetrical. No pathological reflexes. CEREBELLAR/COORDINATION: Deferred GAIT/STATION: deferred. laboratory and microbiology Laboratory Tests 06/30/25 04:25 Test 06/30/25 04:25 Range/Units Serum Glucose 50 L 74-106 mg/dL Problem List Altered mental status Metabolic encephalopathy secondary to DKA, sepsis Rule out other acute central nervous sleep disorder, less likely Anisocoria, resolved, with uncertain clinical significance Diabetic ketoacidosis Sepsis Metabolic acidosis Left foot cellulitis Left foot osteomyelitis Acute respiratory failure COVID-19 Reported dementia Assessment/Plan Monitoring Supportive treatment ICU care Stabilize vitals Respiratory support/vent management Oxygen Glucose control IV antibiotics Wound Care GI prophylaxis More recommendation per clinical course This medical document was created using an electronic medical record system with [employer] dictation system. Although this document has been carefully reviewed, there may still be some phonetic and typographical errors. These areas are purely typographical due to imperfections of the software programs, and do not reflect any compromise in the patient's medical care. Prognosis guarded Dietary Evaluation Review Comments: 1. glucerna 50/hr, along with Propofol 257kcal provide 100% Protein needs and 128% energy needs. Adding Ryder BID will promote wound healing. 2. Continure TF protocol, 3. Reassess when pt is extubated 4. Advance to CCHO-60 diet when pt passes PICKLING OPERATOR eval. Expected Outcomes/Goals: gradually healed wound, Avoid catabolic syndrome Plan discussed with: Other Critical Care Time(min): 40 WELLINGTON KELLY MD Jun 30, 2025 22:06
[2025-07-01] VITALS (93 sets, daily range): BP systolic 89–145; BP diastolic 36–103; PULSE 84–120; RESP 10–27; TEMP 98.8–100.1; O2SAT 94–100
[2025-07-01 05:42] LABS: Chloride 104 mmol/L (98-107); Sodium 140 mmol/L (136-145)
[2025-07-01 05:43] LABS: Anion Gap 8 (5-15); Carbon Dioxide 28 mmol/L (20-31); Hemoglobin 9.0 g/dL (13.5-17.5)
[2025-07-01 05:46] LABS: Hematocrit 26.2 % (41.0-53.0); Mean Corpuscular Hemoglobin 32.8 pg (28.0-32.0); Mean Corpuscular Volume 95.4 fL (80.0-100.0); Nucleated Red Blood Cells % 0.1 %
[2025-07-01 05:49] LABS: BUN/Creatinine Ratio 11.9 (10.0-20.0); Blood Urea Nitrogen 10 mg/dL (9-23)
[2025-07-01 06:03] LABS: Calcium 7.8 mg/dL (8.7-10.4); Glucose 136 mg/dL (74-106); Potassium 3.4 mmol/L (3.5-5.1)
--- NOTE | 2025-07-01 06:13 | DVH ---
CHEST RADIOGRAPH Indication: ventilated Technique: Single frontal view of the chest was obtained COMPARISON: XY CHEST PORTABLE on DOS: 06/30/25, XY CHEST PORTABLE on DOS: 06/28/25, XY CHEST PORTABLE o n DOS: 06/27/25, XY CHEST PORTABLE on DOS: 06/26/25, XY CHEST PORTABLE on DOS: 06/25/25 FINDINGS: Lines and Tubes: Slight interval advancement of the endotracheal tube such that the tip now projects approximately 2.3 cm above the level of the alexis. Remaining lines and tubes unchanged. Lungs: Clear Pleura: No effusion. No pneumothorax. Cardiomediastinal contours: Unremarkable Bones: Unremarkable IMPRESSION: 1. Interval advancement of the endotracheal tube such that the tip now projects approximately 2.3 cm above the level of the alexis. 2. Otherwise no significant change compared to prior exam.
[2025-07-01] MEDS: D5W/ SOD CHL 0.9%/KCL 20MEQ 1,000 ML IV ONE (08:24)
--- NOTE | 2025-07-01 08:33 | DVHPN2 ---
Subjective Patient following some commands. Reviewed: Care Plan, H&P, Labs, Medications, Previous Orders, Radiology Changes from previous H/P or p: Changes General: Per HPI Eyes: No Pain, No Vision change, No Conjunctivae inflammation, No Eyelid inflammation, No Other, No Redness ENT: No Ear pain, No Ear discharge, No Nose pain, No Nose discharge, No Nose congestion, No Mouth pain, No Mouth swelling, No Throat pain, No Throat swelling, No Other Cardiovascular: No Chest Pain, No Palpitations, No Orthopnea, No Paroxysmal Noc. Dyspnea, No Edema, No Lt Headedness; Other (Hypotension) Respiratory: No Cough, No Dry; Shortness of breath; No SOB with excertion, No Wheezing, No Hemoptysis, No Pleuritic Pain, No Sputum, No Other Gastrointestinal: No Nausea, No Vomiting, No Abdominal Pain, No Diarrhea, No Constipation, No Melena, No Hematochezia, No Other Genitourinary: No Dysuria, No Frequency, No Incontinence, No Hematuria, No Retention, No Other Musculoskeletal: other (BKA (LLE), RLE toe amputation); No neck pain, No shoulder pain, No arm pain, No back pain, No hand pain, No leg pain, No foot pain Skin: No Rash, No Lesions, No Jaundice, No Bruising, No Other Objective Vitals Vital Signs Date Time Temp Pulse Resp B/P (MAP) Pulse Ox O2 Delivery O2 Flow Rate FiO2 07/01/25 07:16 85 17 128/71 (90) 100 30 07/01/25 06:45 99.0 210.2 07/01/25 06:00 Mechanical Ventilator+ Intake/Output Intake and Output 07/01/25 07:00 Intake Total 2185.5 ml Output Total 4900 ml Balance -2714.5 ml Intake Oral 400 ml IV Total 1468.5 ml Tube Feeding 317 ml Output Urine Total 4900 ml # Bowel Movements 2 General Appearance: moderate distress, Other (Encephalopathic) HEENT: Atraumatic, PERRLA Lungs: Other (Mechanical ventilation) Cardiovascular: Normal S1, Normal S2 Abdomen: Normal bowel sounds, Soft, No tenderness, No hepatospenomegaly Genitourinary: No Apparent Abnormalities (Garcia catheter) Musculoskeletal: Other (Unable to assess) Extremities: Normal pulses, Other (Right foot with worsening gangrene) Neuro: Other (Unable to assess) Skin: Wounds (See nurse notes and pictures), Other (Right foot gangrene. Status post surgery) Psych/Mental Status: Other (Unable to assess) Medications Current Medications Medications Dose Ordered Sig/Philip Route Start Time Stop Time Status Last Admin Dose Admin Midazolam HCl 50 ml @ 1 mls/hr Q24H IV 06/18/25 14:45 06/25/25 03:56 6 MLS/HR Dextrose 50 ml UD PRN IV 06/18/25 17:00 Cancel Vancomycin HCl 0 ml @ 0 mls/hr UD IV 06/18/25 20:30 Ondansetron HCl 4 mg Q4HP PRN IV 06/18/25 20:30 Nitroglycerin 0.4 mg Q5MINP PRN SL 06/18/25 20:30 Morphine Sulfate 2 mg Q30M PRN IV 06/18/25 20:30 Diagnostic Test (Pha) 1 strip Q6HR 06/21/25 12:00 07/01/25 05:45 1 STRIP Insulin Human Regular Q6HR SC 06/21/25 12:00 07/01/25 00:20 3 UNITS Dextrose 50 ml UD PRN IV 06/21/25 11:15 Pantoprazole Sodium 40 mg BID IV 06/21/25 22:00 06/30/25 21:37 40 MG Micafungin Sodium 100 mg/Sodium Chloride 100 ml @ 100 mls/hr DAILY IV 06/22/25 10:15 06/30/25 10:17 100 MLS/HR Enteral Nutritional Formula 1,000 ml 50ML/HR GT 06/23/25 07:00 06/30/25 02:30 1,000 ML Purified Water 200 ml Q6HR GT 06/24/25 12:00 07/01/25 05:45 200 ML Acetaminophen 650 mg Q6HP PRN GT 06/25/25 12:30 07/01/25 01:47 650 MG Norepinephrine Bitartrate 250 ml @ 1.875 mls/ hr Q24H IV 06/26/25 14:15 06/26/25 16:30 1.875 MLS/HR Cefepime HCl 50 ml @ 12.5 mls/hr Q8HR IV 06/26/25 22:00 07/01/25 05:45 12.5 MLS/HR Laboratory Results Laboratory Tests 07/01/25 04:45 Chemistry Test 07/01/25 04:45 Calcium Level 7.8 mg/dL (8.7-10.4) L Urinalysis Test 06/18/25 13:37 Urine Color Light-yellow (Yellow) Urine Clarity Clear (Clear) Urine pH 5.5 (5.0-9.0) Urine Specific [place] 1.025 (1.001-1.035) Urine Protein Trace (Negative) H Urine Ketones 2+ (Negative) H Urine Blood Trace /uL (Negative) H Urine Nitrite Negative (Negative) Urine Bilirubin Negative (Negative) Urine Urobilinogen Normal mg/dL (Negative) Urine Leukocyte Esterase Negative /uL (Negative) Urine RBC 1 /hpf (0 - 3) Urine Microscopic WBC < 1 /HPF (0-3) Urine Squamous Epithelial Cells None seen /hpf (<5) Urine Bacteria Few /hpf (None Seen) H Urine Hyaline Casts Few /lpf (0 - 2) Urine Glucose 4+ mg/dL (Normal) H Microbiology Microbiology Date/Time Source Procedure Growth Status 06/22/25 00:10 Nose MRSA Screen - Final Complete 06/18/25 15:04 Sputum Gram Stain - Final Complete 06/18/25 15:04 Respiratory Culture - Final Klebsiella pneumoniae Leclercia adecarboxylata Enterobacter cloacae Citrobacter farmeri Complete 06/18/25 13:09 Blood Blood Culture - Final NO GROWTH AFTER 5 DAYS OF INCUBATION. Complete Labs and/or images reviewed: Labs reviewed by me, Image(s) reviewed by me Assessment/Plan Assessment/Plan Impression: -septic shock -right foot osteomyelitis -diabetic ketoacidosis -acute hypoxic respiratory failure -diabetes mellitus -primary hypertension -acute kidney injury Plan: Events: Patient can intermittently following commands. Tolerating spontaneous breathing trial, today being day three. Plans for extubation once weaning parameters has been obtained. Continue IV fluids with potassium replacement given NPO status -regular insulin sliding scale -Glucerna 50 mL/hour -Protonix 40 mg IV b.i.d. -continue vancomycin, cefepime, Diflucan -rosales cultures: Respiratory cultures reviewed. -continue current ventilator setting -repeat labs, chest x-ray, ABG in a.m.. Critical care time spent with patient discussing and formulating plan of care: 90 minutes. This does not include time spent performing procedures. This medical document was created using an electronic medical record system with [employer] dictation system. Although this document has been carefully reviewed, there may still be some phonetic and typographical errors. These areas are purely typographical due to imperfections of the software programs, and do not reflect any compromise in the patient's medical care. Plan discussed with: Patient, Other (RN) My Orders Orders - MAINE VELAZCO NP Procedure Category Date Status Time Cpap/Sed Vacation Med ORDERS 06/30/25 Transmitted Weaning 09:19 Cpap Trial For Am ORDERS 06/30/25 Transmitted 09:19 Abg W/ Co-Ox RT 07/01/25 Logged 06:14 Cpap Trial For Am ORDERS 07/01/25 Transmitted 07:14 D5w/ Sod Chl 0.9%/Kcl PHA 07/01/25 In Process 20meq 07:30 Communication Order ORDERS 07/01/25 Verified 08:29 Magnesium LAB 07/01/25 Verified 08:29 Basic Metabolic Panel LAB 07/02/25 Verified 05:00 Basic Metabolic Panel LAB 07/03/25 Verified 05:00 Complete Blood Count LAB 07/02/25 Verified 05:00 Complete Blood Count LAB 07/03/25 Verified 05:00 Date of Service: Jul 01, 2025 Billing Provider: MAINE VELAZCO NP Common Visit Codes: [id number] CARE 30-74 MIN MAINE VELAZCO NP Jul 01, 2025 08:33
[2025-07-01 09:36] LABS: Base Excess 1.9 mmol/L (-2.0-3.0)
--- NOTE | 2025-07-01 10:43 | DVHPN2 ---
Progress Note - Dictate Date Seen: Jul 01, 2025 Medical Necessity Reason Pt with a Central, PICC or Fol: No Subjective Mr. Nava is a 70 years old gentleman with a history of hypertension, diabetes, status post left BKA, right toe amputation, dementia, he was brought to the [facility] on 06/18/2025 with a chief company of general weakness, hypoglycemia, in the ER, the patient was confirmed to have altered mental status, and respiratory distress (RN note 06/18/25 13:39: The patient was oriented x1, with increased worked of breathing and RR: 29) and the patient was intubated in the emergency room In the hospital, the patient was also found to have DKA, pneumoniae, right foot cellulitis, COVID-19. With appropriate treatment, the patient has been stabilized, off sedation since 06/29/2025 however the patient is not waking up as anticipated I have seen and examined the patient in the ICU, I have discussed with her nurses and other medical staff. He is extubated, awake, he responsive to verbal questions, but he does not vocalize. He moves the arms and legs ABG, 06/18/2025: Metabolic acidosis, 06/19/2025: Compensated metabolic acidosis, 06/22/2025: Compensated metabolic acidosis Blood culture, 06/18/2025: Negative Respiratory culture, 06/18/2025: Klebsiella pneumoniae etc SARS-COV-2 Ag, 06/19/2025: Positive, 06/27/2025: Positive Urinalysis, 06/18/2025: No UTI WBC/HB/PLT/MCV, 06/18/2025: 26.7/14.6/568/113.4, 06/23/2025: 31.6/10.5/346/94.4, 06/28/2025: 16.5/10/403/95 Glucose, 06/18/2025: > , 600, > 600, 352 Beta hydroxybutyric acid, 06/18/2025: >4.5 Anion gap, 06/18/2025: 26, 21, 16 TBI/AST/ALT/AP, 06/28/2025: 0.6/52/18/530 Vitamin B12, 06/25/2025: 1816 Folic acid, 06/28/25: 8.18 TSH, 06/28/2025: 2.16 FT4, 06/28/2025: 0.94 Chest x-ray, 06/18/2025: No acute cardiopulmonary disease Chest x-ray, 06/18/2025: 1. Endotracheal tube 1.8 cm above the alexis. 2. Right internal jugular line either at the cavoatrial junction or within the right atrium. 3. Enteric tube below the left diaphragm in the stomach 4. No change in the cardiopulmonary findings compared film performed earlier today at 1:48 p.m. Chest x-ray, 06/28/2025: Lines and tubes in satisfactory position. Improving bilateral lung aeration CT, right foot, 06/21/2025: 1. Soft tissue emphysema centered around the residual 1st metatarsal stump. 2. Maintain elevated concern for osteomyelitis. 3. In regards to the clinical question, no definitive measurable absces CT head, 06/29/2025: No acute intracranial abnormality vital signs Vital Sign Date Time Temp Pulse Resp B/P (MAP) Pulse Ox O2 Delivery O2 Flow Rate FiO2 07/01/25 09:38 120 21 120/59 (79) 99 30 07/01/25 06:45 99.0 210.2 07/01/25 06:00 Mechanical Ventilator+ Total Intake and Output 06/30/25 06/30/25 07/01/25 15:00 23:00 07:00 Intake Total 725 ml 650.0 ml 810.5 ml Output Total 2450 ml 2450 ml Balance 725 ml -1800.0 ml -1639.5 ml medications Current Medications Medications Dose Ordered Sig/Philip Route Start Time Stop Time Status Last Admin Dose Admin Midazolam HCl 50 ml @ 1 mls/hr Q24H IV 06/18/25 14:45 06/25/25 03:56 6 MLS/HR Dextrose 50 ml UD PRN IV 06/18/25 17:00 Cancel Vancomycin HCl 0 ml @ 0 mls/hr UD IV 06/18/25 20:30 Ondansetron HCl 4 mg Q4HP PRN IV 06/18/25 20:30 Nitroglycerin 0.4 mg Q5MINP PRN SL 06/18/25 20:30 Morphine Sulfate 2 mg Q30M PRN IV 06/18/25 20:30 Diagnostic Test (Pha) 1 strip Q6HR 06/21/25 12:00 07/01/25 05:45 1 STRIP Insulin Human Regular Q6HR SC 06/21/25 12:00 07/01/25 00:20 3 UNITS Dextrose 50 ml UD PRN IV 06/21/25 11:15 Pantoprazole Sodium 40 mg BID IV 06/21/25 22:00 07/01/25 08:16 40 MG Micafungin Sodium 100 mg/Sodium Chloride 100 ml @ 100 mls/hr DAILY IV 06/22/25 10:15 07/01/25 09:28 100 MLS/HR Enteral Nutritional Formula 1,000 ml 50ML/HR GT 06/23/25 07:00 06/30/25 02:30 1,000 ML Purified Water 200 ml Q6HR GT 06/24/25 12:00 07/01/25 05:45 200 ML Acetaminophen 650 mg Q6HP PRN GT 06/25/25 12:30 07/01/25 01:47 650 MG Norepinephrine Bitartrate 250 ml @ 1.875 mls/ hr Q24H IV 06/26/25 14:15 06/26/25 16:30 1.875 MLS/HR Cefepime HCl 50 ml @ 12.5 mls/hr Q8HR IV 06/26/25 22:00 07/01/25 05:45 12.5 MLS/HR objective The patient is well-nourished and well-developed with no distress. The patient is intubated Status Post left BKA , right toe amputation, signs of gangrene in the right foot MENTAL STATUS: Subjective CRANIAL NERVES: Pupils are equal, round and reactive.There are corneal reflexes and conjugated eye movement, sensorimotor examined in bilateral trigeminal distribution is unremarkable. No signs of facial weakness. SENSATION: Okay to light touch and light painful stimuli MOTOR: Normal tone in the upper and lower extremity. Normal muscle bulk. No fasciculations. He the extremities excessively REFLEXES: Deep tendon reflexes are symmetrical. No pathological reflexes. CEREBELLAR/COORDINATION: Deferred GAIT/STATION: deferred. laboratory and microbiology Laboratory Tests 07/01/25 04:45 Test 07/01/25 04:45 Range/Units Serum Glucose 136 H 74-106 mg/dL Problem List Altered mental status, improving Metabolic encephalopathy secondary to DKA, sepsis Rule out other acute central nervous sleep disorder, less likely Anisocoria, resolved, with uncertain clinical significance Diabetic ketoacidosis Sepsis Metabolic acidosis Left foot cellulitis Left foot osteomyelitis Acute respiratory failure COVID-19 Reported dementia Assessment/Plan Monitoring Supportive treatment ICU care Stabilize vitals Respiratory support Oxygen Glucose control IV antibiotics Wound Care GI prophylaxis More recommendation per clinical course He has liked to have poor prognosis for over recovery, I recommend the family to reconsider code status This medical document was created using an electronic medical record system with [employer] dictation system. Although this document has been carefully reviewed, there may still be some phonetic and typographical errors. These areas are purely typographical due to imperfections of the software programs, and do not reflect any compromise in the patient's medical care. Prognosis poor Dietary Evaluation Review Comments: 1. glucerna 50/hr, along with Propofol 257kcal provide 100% Protein needs and 128% energy needs. Adding Ryder BID will promote wound healing. 2. Continure TF protocol, 3. Reassess when pt is extubated 4. Advance to CCHO-60 diet when pt passes CIRCUS PERFORMER eval. Expected Outcomes/Goals: gradually healed wound, Avoid catabolic syndrome Plan discussed with: Other WELLINGTON KELLY MD Jul 01, 2025 10:42
--- NOTE | 2025-07-01 13:23 | DVHPN2 ---
Progress Note - Dictate Date Seen: Jul 01, 2025 Medical Necessity Reason Pt with a Central, PICC or Fol: No vital signs Vital Sign Date Time Temp Pulse Resp B/P (MAP) Pulse Ox O2 Delivery O2 Flow Rate FiO2 07/01/25 10:16 99.3 102 23 126/43 (70) 100 210.7 07/01/25 10:00 30 07/01/25 10:00 Mechanical Ventilator+ Total Intake and Output 06/30/25 06/30/25 07/01/25 15:00 23:00 07:00 Intake Total 725 ml 650.0 ml 810.5 ml Output Total 2450 ml 2450 ml Balance 725 ml -1800.0 ml -1639.5 ml medications Current Medications Medications Dose Ordered Sig/Philip Route Start Time Stop Time Status Last Admin Dose Admin Midazolam HCl 50 ml @ 1 mls/hr Q24H IV 06/18/25 14:45 06/25/25 03:56 6 MLS/HR Dextrose 50 ml UD PRN IV 06/18/25 17:00 Cancel Vancomycin HCl 0 ml @ 0 mls/hr UD IV 06/18/25 20:30 Ondansetron HCl 4 mg Q4HP PRN IV 06/18/25 20:30 Nitroglycerin 0.4 mg Q5MINP PRN SL 06/18/25 20:30 Morphine Sulfate 2 mg Q30M PRN IV 06/18/25 20:30 Diagnostic Test (Pha) 1 strip Q6HR 06/21/25 12:00 07/01/25 12:03 1 STRIP Insulin Human Regular Q6HR SC 06/21/25 12:00 07/01/25 12:06 6 UNITS Dextrose 50 ml UD PRN IV 06/21/25 11:15 Pantoprazole Sodium 40 mg BID IV 06/21/25 22:00 07/01/25 08:16 40 MG Micafungin Sodium 100 mg/Sodium Chloride 100 ml @ 100 mls/hr DAILY IV 06/22/25 10:15 07/01/25 09:28 100 MLS/HR Enteral Nutritional Formula 1,000 ml 50ML/HR GT 06/23/25 07:00 06/30/25 02:30 1,000 ML Purified Water 200 ml Q6HR GT 06/24/25 12:00 07/01/25 05:45 200 ML Acetaminophen 650 mg Q6HP PRN GT 06/25/25 12:30 07/01/25 01:47 650 MG Norepinephrine Bitartrate 250 ml @ 1.875 mls/ hr Q24H IV 06/26/25 14:15 06/26/25 16:30 1.875 MLS/HR Cefepime HCl 50 ml @ 12.5 mls/hr Q8HR IV 06/26/25 22:00 07/01/25 05:45 12.5 MLS/HR laboratory and microbiology Laboratory Tests 07/01/25 04:45 Test 07/01/25 04:45 Range/Units Serum Glucose 136 H 74-106 mg/dL Assessment/Plan Impression Acute hypoxemic respiratory failure Altered mental status pneumonia covid 19 Hyperglycemia DKA Patient seen and examined in the ICU Events Patient was successfully weaned from mechanical ventilation S/p extubation, transitioned to cool aerosol mask Mental status tenuous, appears delirious and not following commands Unable to clear secretions, will require deep nasopharyngeal suctioning Labs and imaging reviewed ABG reviewed Management Supplemental oxygen Titrate to maintain sats 90% or above Aspiration precautions Keep patient NPO Deep nasopharyngeal suctioning Continue antibiotics F/u cultures Bronchodilators withhold steroids in view poorly controlled DM Monitor renal function Monitor electrolytes Supplement as needed Observe for signs of decline Patient at risk for reintubation Prognosis very poor Glycemic control IV fluids DVT prophylaxis Critical care time 35 minutes Dietary Evaluation Review Comments: 1. glucerna 50/hr, along with Propofol 257kcal provide 100% Protein needs and 128% energy needs. Adding Ryder BID will promote wound healing. 2. Continure TF protocol, 3. Reassess when pt is extubated 4. Advance to CCHO-60 diet when pt passes TREATMENT MANAGER eval. Expected Outcomes/Goals: gradually healed wound, Avoid catabolic syndrome Plan discussed with: Other (Rn) BANDAR CARTWRIGHT MD Jul 01, 2025 13:23
[2025-07-01] MEDS ORDERED: ACETAMINOPHEN 650 MG RECT SUPP PR PRN (14:00)
[2025-07-01] MEDS: VANCOMYCIN 1GM/250ML KIT 250 ML IV ONE (18:40)
[2025-07-02] VITALS (49 sets, daily range): BP systolic 93–129; BP diastolic 55–95; PULSE 84–105; RESP 11–25; TEMP 98.6–99.7; O2SAT 92–100
[2025-07-02 05:59] LABS: Mean Corpuscular Volume 95.8 fL (80.0-100.0); Nucleated Red Blood Cells % 0.1 %
[2025-07-02 06:01] LABS: Hematocrit 26.5 % (41.0-53.0); Hemoglobin 9.3 g/dL (13.5-17.5); Mean Corpuscular Hemoglobin 33.5 pg (28.0-32.0)
[2025-07-02 06:12] LABS: Chloride 105 mmol/L (98-107); Sodium 140 mmol/L (136-145)
[2025-07-02 06:13] LABS: Anion Gap 8 (5-15); Carbon Dioxide 27 mmol/L (20-31)
[2025-07-02 06:15] LABS: Calcium 8.0 mg/dL (8.7-10.4); Potassium 3.3 mmol/L (3.5-5.1)
[2025-07-02 06:18] LABS: Glucose 105 mg/dL (74-106)
[2025-07-02 06:19] LABS: BUN/Creatinine Ratio 11.5 (10.0-20.0); Blood Urea Nitrogen 9 mg/dL (9-23)
[2025-07-02] MEDS ORDERED: CLINIMIX PER PHARMACY 0 ML IV SCH (10:00)
--- NOTE | 2025-07-02 10:23 | DVHPN2 ---
Subjective Patient following some commands. Reviewed: Care Plan, H&P, Labs, Medications, Previous Orders, Radiology Changes from previous H/P or p: No Changes General: Per HPI Eyes: No Pain, No Vision change, No Conjunctivae inflammation, No Eyelid inflammation, No Other, No Redness ENT: No Ear pain, No Ear discharge, No Nose pain, No Nose discharge, No Nose congestion, No Mouth pain, No Mouth swelling, No Throat pain, No Throat swelling, No Other Cardiovascular: No Chest Pain, No Palpitations, No Orthopnea, No Paroxysmal Noc. Dyspnea, No Edema, No Lt Headedness; Other (Hypotension) Respiratory: No Cough, No Dry; Shortness of breath; No SOB with excertion, No Wheezing, No Hemoptysis, No Pleuritic Pain, No Sputum, No Other Gastrointestinal: No Nausea, No Vomiting, No Abdominal Pain, No Diarrhea, No Constipation, No Melena, No Hematochezia, No Other Genitourinary: No Dysuria, No Frequency, No Incontinence, No Hematuria, No Retention, No Other Musculoskeletal: other (BKA (LLE), RLE toe amputation); No neck pain, No shoulder pain, No arm pain, No back pain, No hand pain, No leg pain, No foot pain Skin: No Rash, No Lesions, No Jaundice, No Bruising, No Other Objective Vitals Vital Signs Date Time Temp Pulse Resp B/P (MAP) Pulse Ox O2 Delivery O2 Flow Rate FiO2 07/02/25 07:00 99.0 95 16 125/71 (89) 100 99.0 07/02/25 06:00 Nasal Cannula* 3 32 Intake/Output Intake and Output 07/02/25 07:00 Intake Total 925.0 ml Output Total 2800 ml Balance -1875.0 ml Intake Oral 0 ml IV Total 925.0 ml Output Urine Total 2800 ml # Bowel Movements 2 General Appearance: Alert, moderate distress, Other (Encephalopathic) HEENT: Atraumatic, PERRLA Lungs: Other (Mechanical ventilation) Cardiovascular: Normal S1, Normal S2 Abdomen: Normal bowel sounds, Soft, No tenderness, No hepatospenomegaly Genitourinary: No Apparent Abnormalities (Garcia catheter) Musculoskeletal: Other (Unable to assess) Extremities: Normal pulses, Other (Right foot with worsening gangrene) Neuro: Other (Unable to assess) Skin: Wounds (See nurse notes and pictures), Other (Right foot gangrene. Status post surgery) Psych/Mental Status: Other (Unable to assess) Medications Current Medications Medications Dose Ordered Sig/Philip Route Start Time Stop Time Status Last Admin Dose Admin Dextrose 50 ml UD PRN IV 06/18/25 17:00 Cancel Vancomycin HCl 0 ml @ 0 mls/hr UD IV 06/18/25 20:30 Ondansetron HCl 4 mg Q4HP PRN IV 06/18/25 20:30 Nitroglycerin 0.4 mg Q5MINP PRN SL 06/18/25 20:30 Morphine Sulfate 2 mg Q30M PRN IV 06/18/25 20:30 Diagnostic Test (Pha) 1 strip Q6HR 06/21/25 12:00 07/02/25 05:36 1 STRIP Insulin Human Regular Q6HR SC 06/21/25 12:00 07/02/25 00:23 3 UNITS Dextrose 50 ml UD PRN IV 06/21/25 11:15 Pantoprazole Sodium 40 mg BID IV 06/21/25 22:00 07/02/25 09:22 40 MG Micafungin Sodium 100 mg/Sodium Chloride 100 ml @ 100 mls/hr DAILY IV 06/22/25 10:15 07/02/25 09:25 100 MLS/HR Enteral Nutritional Formula 1,000 ml 50ML/HR GT 06/23/25 07:00 06/30/25 02:30 1,000 ML Acetaminophen 650 mg Q6HP PRN GT 06/25/25 12:30 07/01/25 01:47 650 MG Norepinephrine Bitartrate 250 ml @ 1.875 mls/ hr Q24H IV 06/26/25 14:15 06/26/25 16:30 1.875 MLS/HR Cefepime HCl 50 ml @ 12.5 mls/hr Q8HR IV 06/26/25 22:00 07/02/25 05:35 12.5 MLS/HR Acetaminophen 650 mg Q6HP PRN MT 07/01/25 14:00 Vancomycin HCl 100 ml @ 100 mls/hr Q24H IV 07/02/25 18:00 Amino Acids 0 ml @ 0 mls/hr PER PHARMACY IV 07/02/25 10:00 Morphine Sulfate 1 mg Q4HP PRN IV 07/02/25 10:00 Laboratory Results Laboratory Tests 07/02/25 05:06 Chemistry Test 07/02/25 05:06 Calcium Level 8.0 mg/dL (8.7-10.4) L Urinalysis Test 06/18/25 13:37 Urine Color Light-yellow (Yellow) Urine Clarity Clear (Clear) Urine pH 5.5 (5.0-9.0) Urine Specific [place] 1.025 (1.001-1.035) Urine Protein Trace (Negative) H Urine Ketones 2+ (Negative) H Urine Blood Trace /uL (Negative) H Urine Nitrite Negative (Negative) Urine Bilirubin Negative (Negative) Urine Urobilinogen Normal mg/dL (Negative) Urine Leukocyte Esterase Negative /uL (Negative) Urine RBC 1 /hpf (0 - 3) Urine Microscopic WBC < 1 /HPF (0-3) Urine Squamous Epithelial Cells None seen /hpf (<5) Urine Bacteria Few /hpf (None Seen) H Urine Hyaline Casts Few /lpf (0 - 2) Urine Glucose 4+ mg/dL (Normal) H Microbiology Microbiology Date/Time Source Procedure Growth Status 06/22/25 00:10 Nose MRSA Screen - Final Complete 06/18/25 15:04 Sputum Gram Stain - Final Complete 06/18/25 15:04 Respiratory Culture - Final Klebsiella pneumoniae Leclercia adecarboxylata Enterobacter cloacae Citrobacter farmeri Complete 06/18/25 13:09 Blood Blood Culture - Final NO GROWTH AFTER 5 DAYS OF INCUBATION. Complete Labs and/or images reviewed: Labs reviewed by me, Image(s) reviewed by me Assessment/Plan Assessment/Plan Impression: -septic shock -right foot osteomyelitis -diabetic ketoacidosis -acute hypoxic respiratory failure -diabetes mellitus -primary hypertension -acute kidney injury -decubitus ulcer -acute delirium -community-acquired pneumonia, Gram-positive and Gram-negative etiology -COVID-19 Plan: Events: Patient extubated. Respiratory status stable. Continues to be encephalopathic. -K replacement -regular insulin sliding scale -swallow evaluation -start Clinimix -Protonix 40 mg IV b.i.d. -continue vancomycin, cefepime, Diflucan -rosales cultures: Respiratory cultures reviewed. -repeat labs, chest x-ray, ABG in a.m.. Critical care time spent with patient discussing and formulating plan of care: 90 minutes. This does not include time spent performing procedures. This medical document was created using an electronic medical record system with [employer] computerized dictation system. Although this document has been carefully reviewed, there may still be some phonetic and typographical errors. These areas are purely typographical due to imperfections of the software programs, and do not reflect any compromise in the patient's medical care. Plan discussed with: Patient, Other (Rn) My Orders Orders - MAINE VELAZCO NP Procedure Category Date Status Time Acetaminophen PHA 07/01/25 In Process Suppository (Tylenol 14:00 Communication Order ORDERS 07/02/25 Transmitted 09:47 Clinimix Per Pharmacy PHA 07/02/25 In Process 10:00 Morphine Sulfate PHA 07/02/25 In Process Injection 10:00 D5w/Sod Chl 0.9%/Kcl PHA 07/02/25 In Process 40meq 10:00 Date of Service: Jul 02, 2025 Billing Provider: MAINE VELAZCO NP Common Visit Codes: [id number] CARE 30-74 MIN MAINE VELAZCO NP Jul 02, 2025 10:23
[2025-07-02] MEDS: D5W/SOD CHL 0.9%/KCL 40MEQ 1,000 ML IV ONE (10:26)
[2025-07-02] MEDS: MORPHINE SULFATE INJ 2 MG/ml SYRG IV PRN (11:35)
--- NOTE | 2025-07-02 16:06 | DVHPN2 ---
Progress Note - Dictate Date Seen: Jul 02, 2025 Medical Necessity Reason Pt with a Central, PICC or Fol: No vital signs Vital Sign Date Time Temp Pulse Resp B/P (MAP) Pulse Ox O2 Delivery O2 Flow Rate FiO2 07/02/25 15:31 94 25 121/59 (79) 99 07/02/25 15:00 99.3 210.7 07/02/25 14:00 Nasal Cannula* 3 32 Total Intake and Output 07/01/25 07/01/25 07/02/25 15:00 23:00 07:00 Intake Total 562.5 ml 262.5 ml 100 ml Output Total 1300 ml 1500 ml Balance 562.5 ml -1037.5 ml -1400 ml medications Current Medications Medications Dose Ordered Sig/Philip Route Start Time Stop Time Status Last Admin Dose Admin Dextrose 50 ml UD PRN IV 06/18/25 17:00 Cancel Vancomycin HCl 0 ml @ 0 mls/hr UD IV 06/18/25 20:30 Ondansetron HCl 4 mg Q4HP PRN IV 06/18/25 20:30 Nitroglycerin 0.4 mg Q5MINP PRN SL 06/18/25 20:30 Morphine Sulfate 2 mg Q30M PRN IV 06/18/25 20:30 Diagnostic Test (Pha) 1 strip Q6HR 06/21/25 12:00 07/02/25 11:18 1 STRIP Insulin Human Regular Q6HR SC 06/21/25 12:00 07/02/25 11:18 3 UNITS Dextrose 50 ml UD PRN IV 06/21/25 11:15 Pantoprazole Sodium 40 mg BID IV 06/21/25 22:00 07/02/25 09:22 40 MG Micafungin Sodium 100 mg/Sodium Chloride 100 ml @ 100 mls/hr DAILY IV 06/22/25 10:15 07/02/25 09:25 100 MLS/HR Enteral Nutritional Formula 1,000 ml 50ML/HR GT 06/23/25 07:00 06/30/25 02:30 1,000 ML Acetaminophen 650 mg Q6HP PRN GT 06/25/25 12:30 07/01/25 01:47 650 MG Norepinephrine Bitartrate 250 ml @ 1.875 mls/ hr Q24H IV 06/26/25 14:15 06/26/25 16:30 1.875 MLS/HR Cefepime HCl 50 ml @ 12.5 mls/hr Q8HR IV 06/26/25 22:00 07/02/25 14:18 12.5 MLS/HR Acetaminophen 650 mg Q6HP PRN [place] 07/01/25 14:00 Vancomycin HCl 100 ml @ 100 mls/hr Q24H IV 07/02/25 18:00 Amino Acids 0 ml @ 0 mls/hr PER PHARMACY IV 07/02/25 10:00 Morphine Sulfate 1 mg Q4HP PRN IV 07/02/25 10:00 07/02/25 11:35 1 MG Amino Acids/ Electrolytes/ Dextrose 1,000 ml @ 41 mls/hr DAILY@2200 IV 07/02/25 22:00 laboratory and microbiology Laboratory Tests 07/02/25 05:06 Test 07/02/25 05:06 Range/Units Serum Glucose 105 74-106 mg/dL Assessment/Plan Impression Acute hypoxemic respiratory failure Altered mental status pneumonia covid 19 Hyperglycemia DKA Patient seen and examined in the ICU Events s/p extubation on f/mask vs stable pt delirious Labs and imaging reviewed ABG reviewed Management Supplemental oxygen Titrate to maintain sats 90% or above Aspiration precautions Keep patient NPO Deep nasopharyngeal suctioning Continue antibiotics F/u cultures Bronchodilators withhold steroids in view poorly controlled DM Monitor renal function Monitor electrolytes Supplement as needed Observe for signs of decline Patient at risk for reintubation Prognosis very poor Glycemic control IV fluids DVT prophylaxis Critical care time 35 minutes Dietary Evaluation Review Comments: 1. glucerna 50/hr, along with Propofol 257kcal provide 100% Protein needs and 128% energy needs. Adding Ryder BID will promote wound healing. 2. Continure TF protocol, 3. Reassess when pt is extubated 4. Advance to CCHO-60 diet when pt passes PLASTICS PLATER eval. Expected Outcomes/Goals: gradually healed wound, Avoid catabolic syndrome Plan discussed with: Other (rn) BANDAR CARTWRIGHT MD Jul 02, 2025 16:06
[2025-07-02] MEDS: VANCOMYCIN 750MG KIT 100 ML IV SCH (18:03)
[2025-07-02] MEDS: AMINO ACID INFUSION IN D10W 1,000 ML IV SCH (22:40)
--- NOTE | 2025-07-02 23:32 | DVHPN2 ---
Progress Note - Dictate Date Seen: Jul 02, 2025 Medical Necessity Reason Pt with a Central, PICC or Fol: No Subjective Mr. Nava is a 70 years old gentleman with a history of hypertension, diabetes, status post left BKA, right toe amputation, dementia, he was brought to the [facility] on 06/18/2025 with a chief company of general weakness, hypoglycemia, in the ER, the patient was confirmed to have altered mental status, and respiratory distress (RN note 06/18/25 13:39: The patient was oriented x1, with increased worked of breathing and RR: 29) and the patient was intubated in the emergency room In the hospital, the patient was also found to have DKA, pneumoniae, right foot cellulitis, COVID-19. With appropriate treatment, the patient has been stabilized, off sedation since 06/29/2025 however the patient is not waking up as anticipated I have seen and examined the patient in the ICU, I have discussed with her nurses. He is awake, he answer questions, he is oriented to person, place, but his voice is very soft and slurry He moves the arms and legs ABG, 06/18/2025: Metabolic acidosis, 06/19/2025: Compensated metabolic acidosis, 06/22/2025: Compensated metabolic acidosis Blood culture, 06/18/2025: Negative Respiratory culture, 06/18/2025: Klebsiella pneumoniae etc SARS-COV-2 Ag, 06/19/2025: Positive, 06/27/2025: Positive Urinalysis, 06/18/2025: No UTI WBC/HB/PLT/MCV, 06/18/2025: 26.7/14.6/568/113.4, 06/23/2025: 31.6/10.5/346/94.4, 06/28/2025: 16.5/10/403/95 Glucose, 06/18/2025: > , 600, > 600, 352 Beta hydroxybutyric acid, 06/18/2025: >4.5 Anion gap, 06/18/2025: 26, 21, 16 TBI/AST/ALT/AP, 06/28/2025: 0.6/52/18/530 Vitamin B12, 06/25/2025: 1816 Folic acid, 06/28/25: 8.18 TSH, 06/28/2025: 2.16 FT4, 06/28/2025: 0.94 Chest x-ray, 06/18/2025: No acute cardiopulmonary disease Chest x-ray, 06/18/2025: 1. Endotracheal tube 1.8 cm above the alexis. 2. Right internal jugular line either at the cavoatrial junction or within the right atrium. 3. Enteric tube below the left diaphragm in the stomach 4. No change in the cardiopulmonary findings compared film performed earlier today at 1:48 p.m. Chest x-ray, 06/28/2025: Lines and tubes in satisfactory position. Improving bilateral lung aeration CT, right foot, 06/21/2025: 1. Soft tissue emphysema centered around the residual 1st metatarsal stump. 2. Maintain elevated concern for osteomyelitis. 3. In regards to the clinical question, no definitive measurable absces CT head, 06/29/2025: No acute intracranial abnormality vital signs Vital Sign Date Time Temp Pulse Resp B/P (MAP) Pulse Ox O2 Delivery O2 Flow Rate FiO2 07/02/25 21:00 99.0 88 14 117/68 (84) 100 210.2 07/02/25 18:00 Nasal Cannula* 3 32 Total Intake and Output 07/01/25 07/01/25 07/02/25 15:00 23:00 07:00 Intake Total 562.5 ml 262.5 ml 100 ml Output Total 1300 ml 1500 ml Balance 562.5 ml -1037.5 ml -1400 ml medications Current Medications Medications Dose Ordered Sig/Philip Route Start Time Stop Time Status Last Admin Dose Admin Dextrose 50 ml UD PRN IV 06/18/25 17:00 Cancel Vancomycin HCl 0 ml @ 0 mls/hr UD IV 06/18/25 20:30 Ondansetron HCl 4 mg Q4HP PRN IV 06/18/25 20:30 Nitroglycerin 0.4 mg Q5MINP PRN SL 06/18/25 20:30 Morphine Sulfate 2 mg Q30M PRN IV 06/18/25 20:30 Diagnostic Test (Pha) 1 strip Q6HR 06/21/25 12:00 07/02/25 18:14 1 STRIP Insulin Human Regular Q6HR SC 06/21/25 12:00 07/02/25 18:14 2 UNITS Dextrose 50 ml UD PRN IV 06/21/25 11:15 Pantoprazole Sodium 40 mg BID IV 06/21/25 22:00 07/02/25 22:40 40 MG Micafungin Sodium 100 mg/Sodium Chloride 100 ml @ 100 mls/hr DAILY IV 06/22/25 10:15 07/02/25 09:25 100 MLS/HR Enteral Nutritional Formula 1,000 ml 50ML/HR GT 06/23/25 07:00 06/30/25 02:30 1,000 ML Acetaminophen 650 mg Q6HP PRN GT 06/25/25 12:30 07/01/25 01:47 650 MG Norepinephrine Bitartrate 250 ml @ 1.875 mls/ hr Q24H IV 06/26/25 14:15 06/26/25 16:30 1.875 MLS/HR Cefepime HCl 50 ml @ 12.5 mls/hr Q8HR IV 06/26/25 22:00 07/02/25 22:40 12.5 MLS/HR Acetaminophen 650 mg Q6HP PRN [place] 07/01/25 14:00 Vancomycin HCl 100 ml @ 100 mls/hr Q24H IV 07/02/25 18:00 07/02/25 18:03 100 MLS/HR Amino Acids 0 ml @ 0 mls/hr PER PHARMACY IV 07/02/25 10:00 Morphine Sulfate 1 mg Q4HP PRN IV 07/02/25 10:00 07/02/25 11:35 1 MG Amino Acids/ Electrolytes/ Dextrose 1,000 ml @ 41 mls/hr DAILY@2200 IV 07/02/25 22:00 07/02/25 22:40 41 MLS/HR objective The patient is well-nourished and well-developed with no distress. Status Post left BKA , right toe amputation, signs of gangrene in the right foot MENTAL STATUS: Subjective CRANIAL NERVES: Pupils are equal, round and reactive.There are corneal reflexes and conjugated eye movement, sensorimotor examined in bilateral trigeminal distribution is unremarkable. No signs of facial weakness. SENSATION: Okay to light touch and light painful stimuli MOTOR: Normal tone in the upper and lower extremity. Normal muscle bulk. No fasciculations. He moves the arms and legs REFLEXES: Deep tendon reflexes are symmetrical. No pathological reflexes. CEREBELLAR/COORDINATION: Deferred GAIT/STATION: deferred. laboratory and microbiology Laboratory Tests 07/02/25 05:06 Test 07/02/25 05:06 Range/Units Serum Glucose 105 74-106 mg/dL Problem List Altered mental status, improving Metabolic encephalopathy secondary to DKA, sepsis Rule out other acute central nervous sleep disorder, less likely Anisocoria, resolved, with uncertain clinical significance Diabetic ketoacidosis Sepsis Metabolic acidosis Left foot cellulitis Left foot osteomyelitis Acute respiratory failure COVID-19 Reported dementia Assessment/Plan Monitoring Supportive treatment ICU care Stabilize vitals Respiratory support Oxygen Glucose control IV antibiotics Wound Care GI prophylaxis More recommendation per clinical course He has liked to have poor prognosis for over recovery, I recommend the family to reconsider code status This medical document was created using an electronic medical record system with [employer] dictation system. Although this document has been carefully reviewed, there may still be some phonetic and typographical errors. These areas are purely typographical due to imperfections of the software programs, and do not reflect any compromise in the patient's medical care. Prognosis poor Dietary Evaluation Review Comments: 1. glucerna 50/hr, along with Propofol 257kcal provide 100% Protein needs and 128% energy needs. Adding Ryder BID will promote wound healing. 2. Continure TF protocol, 3. Reassess when pt is extubated 4. Advance to CCHO-60 diet when pt passes CHROME TANNING DRUM OPERATOR eval. Expected Outcomes/Goals: gradually healed wound, Avoid catabolic syndrome Plan discussed with: Other WELLINGTON KELLY MD Jul 02, 2025 23:32
[2025-07-03] VITALS (45 sets, daily range): BP systolic 87–133; BP diastolic 45–78; PULSE 83–103; RESP 11–24; TEMP 97–99.7; O2SAT 87–100
[2025-07-03 06:01] LABS: Hemoglobin 8.9 g/dL (13.5-17.5)
[2025-07-03 06:03] LABS: Hematocrit 26.7 % (41.0-53.0); Mean Corpuscular Hemoglobin 32.7 pg (28.0-32.0); Mean Corpuscular Volume 98.0 fL (80.0-100.0); Nucleated Red Blood Cells % 0.1 %
[2025-07-03 06:13] LABS: Alanine Aminotransferase 16 U/L (7-40); Anion Gap 8 (5-15); BUN/Creatinine Ratio 12.2 (10.0-20.0); Blood Urea Nitrogen 10 mg/dL (9-23); Carbon Dioxide 26 mmol/L (20-31); Chloride 104 mmol/L (98-107); Magnesium 2.0 mg/dL (1.6-2.6); Potassium 3.6 mmol/L (3.5-5.1); Sodium 138 mmol/L (136-145); Triglycerides 117 mg/dL (< 150)
[2025-07-03 06:14] LABS: Total Protein 6.7 g/dL (5.7-8.2)
[2025-07-03 06:15] LABS: Bilirubin, Total 0.6 mg/dL (0.2-1.0)
[2025-07-03 07:15] LABS: Albumin 2.9 g/dL (3.2-4.8); Alkaline Phosphatase 256 U/L (46-116); Calcium 8.0 mg/dL (8.7-10.4); Glucose 146 mg/dL (74-106)
--- NOTE | 2025-07-03 10:26 | DVHPN2 ---
Subjective Patient following some commands. Reviewed: Care Plan, H&P, Labs, Medications, Previous Orders, Radiology Changes from previous H/P or p: No Changes General: Per HPI Eyes: No Pain, No Vision change, No Conjunctivae inflammation, No Eyelid inflammation, No Other, No Redness ENT: No Ear pain, No Ear discharge, No Nose pain, No Nose discharge, No Nose congestion, No Mouth pain, No Mouth swelling, No Throat pain, No Throat swelling, No Other Cardiovascular: No Chest Pain, No Palpitations, No Orthopnea, No Paroxysmal Noc. Dyspnea, No Edema, No Lt Headedness; Other (Hypotension) Respiratory: No Cough, No Dry; Shortness of breath; No SOB with excertion, No Wheezing, No Hemoptysis, No Pleuritic Pain, No Sputum, No Other Gastrointestinal: No Nausea, No Vomiting, No Abdominal Pain, No Diarrhea, No Constipation, No Melena, No Hematochezia, No Other Genitourinary: No Dysuria, No Frequency, No Incontinence, No Hematuria, No Retention, No Other Musculoskeletal: other (BKA (LLE), RLE toe amputation); No neck pain, No shoulder pain, No arm pain, No back pain, No hand pain, No leg pain, No foot pain Skin: No Rash, No Lesions, No Jaundice, No Bruising, No Other Objective Vitals Vital Signs Date Time Temp Pulse Resp B/P (MAP) Pulse Ox O2 Delivery O2 Flow Rate FiO2 07/03/25 06:00 99.0 89 14 111/61 (78) 99 210.2 07/03/25 06:00 Nasal Cannula* 2 28 Intake/Output Intake and Output 07/03/25 07:00 Intake Total 1278.0 ml Output Total 2800 ml Balance -1522.0 ml IV Total 1278.0 ml Output Urine Total 2800 ml General Appearance: Alert, Cooperative, moderate distress, Other (Encephalopathic) HEENT: Atraumatic, PERRLA Lungs: Other (Mechanical ventilation) Cardiovascular: Normal S1, Normal S2 Abdomen: Normal bowel sounds, Soft, No tenderness, No hepatospenomegaly Genitourinary: No Apparent Abnormalities (Garcia catheter) Musculoskeletal: Other (Unable to assess) Extremities: Normal pulses, Other (Right foot with worsening gangrene) Neuro: Other (Unable to assess) Skin: Wounds (See nurse notes and pictures), Other (Right foot gangrene. Status post surgery) Psych/Mental Status: Other (Unable to assess) Medications Current Medications Medications Dose Ordered Sig/Philip Route Start Time Stop Time Status Last Admin Dose Admin Dextrose 50 ml UD PRN IV 06/18/25 17:00 Cancel Vancomycin HCl 0 ml @ 0 mls/hr UD IV 06/18/25 20:30 Ondansetron HCl 4 mg Q4HP PRN IV 06/18/25 20:30 Nitroglycerin 0.4 mg Q5MINP PRN SL 06/18/25 20:30 Morphine Sulfate 2 mg Q30M PRN IV 06/18/25 20:30 Diagnostic Test (Pha) 1 strip Q6HR 06/21/25 12:00 07/03/25 06:02 1 STRIP Insulin Human Regular Q6HR SC 06/21/25 12:00 07/03/25 06:00 2 UNITS Dextrose 50 ml UD PRN IV 06/21/25 11:15 Pantoprazole Sodium 40 mg BID IV 06/21/25 22:00 07/03/25 10:04 40 MG Micafungin Sodium 100 mg/Sodium Chloride 100 ml @ 100 mls/hr DAILY IV 06/22/25 10:15 07/03/25 10:04 100 MLS/HR Enteral Nutritional Formula 1,000 ml 50ML/HR GT 06/23/25 07:00 06/30/25 02:30 1,000 ML Acetaminophen 650 mg Q6HP PRN GT 06/25/25 12:30 07/01/25 01:47 650 MG Norepinephrine Bitartrate 250 ml @ 1.875 mls/ hr Q24H IV 06/26/25 14:15 06/26/25 16:30 1.875 MLS/HR Cefepime HCl 50 ml @ 12.5 mls/hr Q8HR IV 06/26/25 22:00 07/03/25 06:02 12.5 MLS/HR Acetaminophen 650 mg Q6HP PRN [place] 07/01/25 14:00 Vancomycin HCl 100 ml @ 100 mls/hr Q24H IV 07/02/25 18:00 07/02/25 18:03 100 MLS/HR Amino Acids 0 ml @ 0 mls/hr PER PHARMACY IV 07/02/25 10:00 Morphine Sulfate 1 mg Q4HP PRN IV 07/02/25 10:00 07/02/25 11:35 1 MG Amino Acids/ Electrolytes/ Dextrose 1,000 ml @ 41 mls/hr DAILY@2200 IV 07/02/25 22:00 07/02/25 22:40 41 MLS/HR Laboratory Results Laboratory Tests 07/03/25 04:30 07/03/25 04:32 Chemistry Test 07/03/25 04:30 Albumin 2.9 g/dL (3.2-4.8) L Calcium Level 8.0 mg/dL (8.7-10.4) L Magnesium Level 2.0 mg/dL (1.6-2.6) Phosphorus Level 1.3 mg/dL (2.4-5.1) L Total Protein 6.7 g/dL (5.7-8.2) Lipid panel Test 07/03/25 04:30 Triglycerides Level 117 mg/dL (< 150) LFT Test 07/03/25 04:30 Alanine Aminotransferase (ALT) 16 U/L (7-40) Alkaline Phosphatase 256 U/L (46-116) H Aspartate Amino Transferase (AST) 20 U/L (13-40) Total Bilirubin 0.6 mg/dL (0.2-1.0) Urinalysis Test 06/18/25 13:37 Urine Color Light-yellow (Yellow) Urine Clarity Clear (Clear) Urine pH 5.5 (5.0-9.0) Urine Specific [place] 1.025 (1.001-1.035) Urine Protein Trace (Negative) H Urine Ketones 2+ (Negative) H Urine Blood Trace /uL (Negative) H Urine Nitrite Negative (Negative) Urine Bilirubin Negative (Negative) Urine Urobilinogen Normal mg/dL (Negative) Urine Leukocyte Esterase Negative /uL (Negative) Urine RBC 1 /hpf (0 - 3) Urine Microscopic WBC < 1 /HPF (0-3) Urine Squamous Epithelial Cells None seen /hpf (<5) Urine Bacteria Few /hpf (None Seen) H Urine Hyaline Casts Few /lpf (0 - 2) Urine Glucose 4+ mg/dL (Normal) H Microbiology Microbiology Date/Time Source Procedure Growth Status 06/22/25 00:10 Nose MRSA Screen - Final Complete 06/18/25 15:04 Sputum Gram Stain - Final Complete 06/18/25 15:04 Respiratory Culture - Final Klebsiella pneumoniae Leclercia adecarboxylata Enterobacter cloacae Citrobacter farmeri Complete 06/18/25 13:09 Blood Blood Culture - Final NO GROWTH AFTER 5 DAYS OF INCUBATION. Complete Labs and/or images reviewed: Labs reviewed by me, Image(s) reviewed by me Assessment/Plan Assessment/Plan Impression: -septic shock -right foot osteomyelitis -diabetic ketoacidosis -acute hypoxic respiratory failure -diabetes mellitus -primary hypertension -acute kidney injury -decubitus ulcer -acute delirium -community-acquired pneumonia, Gram-positive and Gram-negative etiology -COVID-19 Plan: Events: Patient more alert and following some commands. -attempt oral intake. -regular insulin sliding scale -swallow evaluation -continue Clinimix at this time -Protonix 40 mg IV b.i.d. -continue vancomycin, cefepime, Diflucan -repeat labs, chest x-ray, ABG in a.m.. -transferred to step-down ICU Critical care time spent with patient discussing and formulating plan of care: 40 minutes. This does not include time spent performing procedures. This medical document was created using an electronic medical record system with [employer] dictation system. Although this document has been carefully reviewed, there may still be some phonetic and typographical errors. These areas are purely typographical due to imperfections of the software programs, and do not reflect any compromise in the patient's medical care. Plan discussed with: Patient, Son, Other (RN) My Orders Orders - MAINE VELAZCO NP Procedure Category Date Status Time Amino Acid Infusion PHA 07/02/25 In Process In D10w (Clinimix 4. 22:00 Potassium Phosphate PHA 07/03/25 In Process 09:30 Pureed DIET 07/03/25 Verified Lunch Swallow Eval Follow Up FEDE 07/03/25 Verified 10:22 Transfer Orders XFER 07/03/25 Verified 10:22 Date of Service: Jul 03, 2025 Billing Provider: MAINE VELAZCO NP Common Visit Codes: 49128-[id number] CARE 30-74 MIN MAINE VELAZCO NP Jul 03, 2025 10:26
[2025-07-03] MEDS: POTASSIUM PHOSPHATE 22 MEQ in SODIUM CHL 0.9% 100 ML IV ONE ×2 (10:52→17:30)
--- NOTE | 2025-07-03 16:21 | DVHPN2 ---
[facility] DOS: 07/03/2025 Patient seen and examined at bedside. Breathing comfortably on room air. Overnight events reviewed HPI: Patient is a 70-year old gentleman with PMHx of dementia, hypertension and diabetes who presented to ED on 06/18/25 with c/o altered mental status and generalized weakness. When EMS arrived on the scene, patient's blood sugar was high, hypotensive with blood pressure 76/40, increased work of breathing, and was given IV fluid normal saline, O2 saturation at 96% en route to our facility ED Was seen in the emergency room, where he was intubated for airway protection and placed on mechanical ventilation. Initial settings AC volume control RR 20, tidal volume 400, PEEP 5, FiO2 100%. Patient was also found to have a markedly elevated blood sugar consistent with DKA and he was started on IV insulin drip. ABG pH 7.05, pCO2 30, pO2 440. Pt also tested positive for COVID-19. Initial ED workup: WBC 26.7, platelets 568, sodium 126, potassium 5.5, BUN 43, creatinine 2 five eight, GFR 34, glucose 852, anion gap 26, acetone > 4.500, calcium 10.2 trending down to 8.4, troponin 31. Chest x-ray revealed no evidence of acute cardiopulmonary process. Patient was admitted for further care. Pulmonary consultation was requested for evaluation and management of acute hypoxic respiratory failure, pneumonia and COVID-19 Past Medical History DM, hypertension and dementia. Past Surgical History BKA (LLE), RLE toe amputation. Medications: Reviewed. Allergies: No known drug allergies. Family History No family history of premature CAD. No family history of lung disorders. Social History: Nonsmoker. No alcohol or illicit drug use. Reviewed: Care Plan, H&P, Labs, Medications, Previous Orders, Radiology Changes from previous H/P or p: No Changes General: Per HPI Eyes: No Pain, No Vision change, No Conjunctivae inflammation, No Eyelid inflammation, No Other, No Redness ENT: No Ear pain, No Ear discharge, No Nose pain, No Nose discharge, No Nose congestion, No Mouth pain, No Mouth swelling, No Throat pain, No Throat swelling, No Other Cardiovascular: No Chest Pain, No Palpitations, No Orthopnea, No Paroxysmal Noc. Dyspnea, No Edema, No Lt Headedness; Other (Hypotension) Respiratory: No Cough, No Dry; Shortness of breath; No SOB with excertion, No Wheezing, No Hemoptysis, No Pleuritic Pain, No Sputum, No Other Gastrointestinal: No Nausea, No Vomiting, No Abdominal Pain, No Diarrhea, No Constipation, No Melena, No Hematochezia, No Other Genitourinary: No Dysuria, No Frequency, No Incontinence, No Hematuria, No Retention, No Other Musculoskeletal: other (BKA (LLE), RLE toe amputation); No neck pain, No shoulder pain, No arm pain, No back pain, No hand pain, No leg pain, No foot pain Skin: No Rash, No Lesions, No Jaundice, No Bruising, No Other Objective Vitals Vital Signs Date Time Temp Pulse Resp B/P (MAP) Pulse Ox O2 Delivery O2 Flow Rate FiO2 07/03/25 15:30 99.3 88 15 112/60 (77) 100 210.7 07/03/25 14:00 Room Air* 0 21 Intake/Output Intake and Output 07/03/25 07:00 Intake Total 1331.5 ml Output Total 2800 ml Balance -1468.5 ml IV Total 1331.5 ml Output Urine Total 2800 ml General Appearance: Alert, Cooperative, No acute distress, Other (Encephalopathic) HEENT: Atraumatic, PERRLA Lungs: Clear to auscultation, Other (Decreased air entry bilaterally) Cardiovascular: Regular rate, Normal S1, Normal S2 Abdomen: Normal bowel sounds, Soft, No tenderness, No hepatospenomegaly Genitourinary: No Apparent Abnormalities (Garcia catheter) Musculoskeletal: Other (Unable to assess) Extremities: Normal pulses, Other (Right foot with worsening gangrene) Neuro: Other (Unable to assess) Skin: Wounds (See nurse notes and pictures), Other (Right foot gangrene. Status post surgery) Psych/Mental Status: Other (Unable to assess) Medications Current Medications Medications Dose Ordered Sig/Philip Route Start Time Stop Time Status Last Admin Dose Admin Dextrose 50 ml UD PRN IV 06/18/25 17:00 Cancel Vancomycin HCl 0 ml @ 0 mls/hr UD IV 06/18/25 20:30 Ondansetron HCl 4 mg Q4HP PRN IV 06/18/25 20:30 Nitroglycerin 0.4 mg Q5MINP PRN SL 06/18/25 20:30 Morphine Sulfate 2 mg Q30M PRN IV 06/18/25 20:30 Diagnostic Test (Pha) 1 strip Q6HR 06/21/25 12:00 07/03/25 11:36 1 STRIP Insulin Human Regular Q6HR SC 06/21/25 12:00 07/03/25 11:41 9 UNITS Dextrose 50 ml UD PRN IV 06/21/25 11:15 Pantoprazole Sodium 40 mg BID IV 06/21/25 22:00 07/03/25 10:04 40 MG Micafungin Sodium 100 mg/Sodium Chloride 100 ml @ 100 mls/hr DAILY IV 06/22/25 10:15 07/03/25 10:04 100 MLS/HR Enteral Nutritional Formula 1,000 ml 50ML/HR GT 06/23/25 07:00 06/30/25 02:30 1,000 ML Acetaminophen 650 mg Q6HP PRN GT 06/25/25 12:30 07/01/25 01:47 650 MG Norepinephrine Bitartrate 250 ml @ 1.875 mls/ hr Q24H IV 06/26/25 14:15 06/26/25 16:30 1.875 MLS/HR Cefepime HCl 50 ml @ 12.5 mls/hr Q8HR IV 06/26/25 22:00 07/03/25 13:38 12.5 MLS/HR Acetaminophen 650 mg Q6HP PRN [place] 07/01/25 14:00 Vancomycin HCl 100 ml @ 100 mls/hr Q24H IV 07/02/25 18:00 07/02/25 18:03 100 MLS/HR Amino Acids 0 ml @ 0 mls/hr PER PHARMACY IV 07/02/25 10:00 Morphine Sulfate 1 mg Q4HP PRN IV 07/02/25 10:00 07/03/25 13:20 1 MG Amino Acids/ Electrolytes/ Dextrose 1,000 ml @ 41 mls/hr DAILY@2200 IV 07/02/25 22:00 07/02/25 22:40 41 MLS/HR Laboratory Results Laboratory Tests 07/03/25 04:30 07/03/25 04:32 Chemistry Test 07/03/25 04:30 Albumin 2.9 g/dL (3.2-4.8) L Calcium Level 8.0 mg/dL (8.7-10.4) L Magnesium Level 2.0 mg/dL (1.6-2.6) Phosphorus Level 1.3 mg/dL (2.4-5.1) L Total Protein 6.7 g/dL (5.7-8.2) Lipid panel Test 07/03/25 04:30 Triglycerides Level 117 mg/dL (< 150) LFT Test 07/03/25 04:30 Alanine Aminotransferase (ALT) 16 U/L (7-40) Alkaline Phosphatase 256 U/L (46-116) H Aspartate Amino Transferase (AST) 20 U/L (13-40) Total Bilirubin 0.6 mg/dL (0.2-1.0) Urinalysis Test 06/18/25 13:37 Urine Color Light-yellow (Yellow) Urine Clarity Clear (Clear) Urine pH 5.5 (5.0-9.0) Urine Specific [place] 1.025 (1.001-1.035) Urine Protein Trace (Negative) H Urine Ketones 2+ (Negative) H Urine Blood Trace /uL (Negative) H Urine Nitrite Negative (Negative) Urine Bilirubin Negative (Negative) Urine Urobilinogen Normal mg/dL (Negative) Urine Leukocyte Esterase Negative /uL (Negative) Urine RBC 1 /hpf (0 - 3) Urine Microscopic WBC < 1 /HPF (0-3) Urine Squamous Epithelial Cells None seen /hpf (<5) Urine Bacteria Few /hpf (None Seen) H Urine Hyaline Casts Few /lpf (0 - 2) Urine Glucose 4+ mg/dL (Normal) H Microbiology Microbiology Date/Time Source Procedure Growth Status 06/22/25 00:10 Nose MRSA Screen - Final Complete 06/18/25 15:04 Sputum Gram Stain - Final Complete 06/18/25 15:04 Respiratory Culture - Final Klebsiella pneumoniae Leclercia adecarboxylata Enterobacter cloacae Citrobacter farmeri Complete 06/18/25 13:09 Blood Blood Culture - Final NO GROWTH AFTER 5 DAYS OF INCUBATION. Complete Assessment/Plan Assessment/Plan Impression: Acute hypoxic respiratory failure Acute metabolic encephalopathy Pneumonia, likely GNR COVID-19 infection Right foot osteomyelitis Diabetic ketoacidosis Plan: On room air Supplemental oxygen PRN Titrate to keep O2 sats above 92%. Chest x-ray reveals no acute opacities. Continue antibiotics Follow up cultures Continue antifungals Hemodynamic monitoring. Supportive care. Monitor hemoglobin - currently 8.9 g/dL Transfuse if less than 7.0 g/dL. Pain control Avoid oversedation Monitor renal function. Monitor electrolytes. Supplement as necessary. Monitor ins and outs. Clinimix for nutritional support Wound care DVT prophylaxis. Prognosis: Poor given patient's multiple co-morbidities. Rest of plan per hospitalist and other consultants. Thank you, BREANNA Serrato, for allowing me to participate in this patient's care. Further recommendations will depend on the patient's clinical course. Please do not hesitate to contact me if you have any questions or concerns. This medical document was created using an electronic medical record system with [employer] dictation system. Although these documentations are being carefully reviewed, there may still be some phonetic and typographical changes. The errors are purely typographical, due to imperfection on the software program, and do not reflect any compromise in the patient's medical care. Plan discussed with: Patient, Other (RN) Date of Service: Jul 03, 2025 Billing Provider: RENAE FLORES MD Common Visit Codes: [id number] INP/OBS CARE(HIGH) RENAE FLORES MD Jul 03, 2025 16:21
--- NOTE | 2025-07-03 19:29 | DVHPN2 ---
Progress Note - Dictate Date Seen: Jul 03, 2025 Medical Necessity Reason Pt with a Central, PICC or Fol: No Subjective Mr. Nava is a 70 years old gentleman with a history of hypertension, diabetes, status post left BKA, right toe amputation, dementia, he was brought to the [facility] on 06/18/2025 with a chief company of general weakness, hypoglycemia, in the ER, the patient was confirmed to have altered mental status, and respiratory distress (RN note 06/18/25 13:39: The patient was oriented x1, with increased worked of breathing and RR: 29) and the patient was intubated in the emergency room In the hospital, the patient was also found to have DKA, pneumoniae, right foot cellulitis, COVID-19. With appropriate treatment, the patient has been stabilized, off sedation since 06/29/2025 however the patient is not waking up as anticipated I have seen and examined the patient in the ICU, I have discussed with her nurses. He is awake, responsive to verbal stimuli, but he does not not vocalize or follow verbal commands, he looks tired He moves the arms and legs but not as much as 07/02/2025 ABG, 06/18/2025: Metabolic acidosis, 06/19/2025: Compensated metabolic acidosis, 06/22/2025: Compensated metabolic acidosis Blood culture, 06/18/2025: Negative Respiratory culture, 06/18/2025: Klebsiella pneumoniae etc SARS-COV-2 Ag, 06/19/2025: Positive, 06/27/2025: Positive Urinalysis, 06/18/2025: No UTI WBC/HB/PLT/MCV, 06/18/2025: 26.7/14.6/568/113.4, 06/23/2025: 31.6/10.5/346/94.4, 06/28/2025: 16.5/10/403/95 Glucose, 06/18/2025: > , 600, > 600, 352 Beta hydroxybutyric acid, 06/18/2025: >4.5 Anion gap, 06/18/2025: 26, 21, 16 TBI/AST/ALT/AP, 06/28/2025: 0.6/52/18/530 Vitamin B12, 06/25/2025: 1816 Folic acid, 06/28/25: 8.18 TSH, 06/28/2025: 2.16 FT4, 06/28/2025: 0.94 Chest x-ray, 06/18/2025: No acute cardiopulmonary disease Chest x-ray, 06/18/2025: 1. Endotracheal tube 1.8 cm above the alexis. 2. Right internal jugular line either at the cavoatrial junction or within the right atrium. 3. Enteric tube below the left diaphragm in the stomach 4. No change in the cardiopulmonary findings compared film performed earlier today at 1:48 p.m. Chest x-ray, 06/28/2025: Lines and tubes in satisfactory position. Improving bilateral lung aeration CT, right foot, 06/21/2025: 1. Soft tissue emphysema centered around the residual 1st metatarsal stump. 2. Maintain elevated concern for osteomyelitis. 3. In regards to the clinical question, no definitive measurable absces CT head, 06/29/2025: No acute intracranial abnormality vital signs Vital Sign Date Time Temp Pulse Resp B/P (MAP) Pulse Ox O2 Delivery O2 Flow Rate FiO2 07/03/25 18:30 84 13 105/53 (70) 100 07/03/25 18:00 Room Air* 0 21 07/03/25 17:30 99.1 210.4 Total Intake and Output 07/02/25 07/02/25 07/03/25 15:00 23:00 07:00 Intake Total 362.5 ml 478.5 ml 490.5 ml Output Total 800 ml 2000 ml Balance 362.5 ml -321.5 ml -1509.5 ml medications Current Medications Medications Dose Ordered Sig/Philip Route Start Time Stop Time Status Last Admin Dose Admin Dextrose 50 ml UD PRN IV 06/18/25 17:00 Cancel Vancomycin HCl 0 ml @ 0 mls/hr UD IV 06/18/25 20:30 Ondansetron HCl 4 mg Q4HP PRN IV 06/18/25 20:30 Nitroglycerin 0.4 mg Q5MINP PRN SL 06/18/25 20:30 Morphine Sulfate 2 mg Q30M PRN IV 06/18/25 20:30 Diagnostic Test (Pha) 1 strip Q6HR 06/21/25 12:00 07/03/25 17:07 1 STRIP Insulin Human Regular Q6HR SC 06/21/25 12:00 07/03/25 17:13 3 UNITS Dextrose 50 ml UD PRN IV 06/21/25 11:15 Pantoprazole Sodium 40 mg BID IV 06/21/25 22:00 07/03/25 10:04 40 MG Micafungin Sodium 100 mg/Sodium Chloride 100 ml @ 100 mls/hr DAILY IV 06/22/25 10:15 07/03/25 10:04 100 MLS/HR Enteral Nutritional Formula 1,000 ml 50ML/HR GT 06/23/25 07:00 06/30/25 02:30 1,000 ML Acetaminophen 650 mg Q6HP PRN GT 06/25/25 12:30 07/01/25 01:47 650 MG Norepinephrine Bitartrate 250 ml @ 1.875 mls/ hr Q24H IV 06/26/25 14:15 06/26/25 16:30 1.875 MLS/HR Cefepime HCl 50 ml @ 12.5 mls/hr Q8HR IV 06/26/25 22:00 07/03/25 13:38 12.5 MLS/HR Acetaminophen 650 mg Q6HP PRN [place] 07/01/25 14:00 Vancomycin HCl 100 ml @ 100 mls/hr Q24H IV 07/02/25 18:00 07/03/25 18:22 100 MLS/HR Amino Acids 0 ml @ 0 mls/hr PER PHARMACY IV 07/02/25 10:00 Morphine Sulfate 1 mg Q4HP PRN IV 07/02/25 10:00 07/03/25 13:20 1 MG Amino Acids/ Electrolytes/ Dextrose 1,000 ml @ 41 mls/hr DAILY@2200 IV 07/02/25 22:00 07/02/25 22:40 41 MLS/HR objective The patient is well-nourished and well-developed with no distress. Status Post left BKA , right toe amputation, signs of gangrene in the right foot MENTAL STATUS: Subjective CRANIAL NERVES: Pupils are equal, round and reactive.There are corneal reflexes and conjugated eye movement, sensorimotor examined in bilateral trigeminal distribution is unremarkable. No signs of facial weakness. SENSATION: Okay to light touch and light painful stimuli MOTOR: Normal tone in the upper and lower extremity. Normal muscle bulk. No fasciculations. He moves the arms and legs REFLEXES: Deep tendon reflexes are symmetrical. No pathological reflexes. CEREBELLAR/COORDINATION: Deferred GAIT/STATION: deferred. laboratory and microbiology Laboratory Tests 07/03/25 04:32 07/03/25 04:30 Test 07/03/25 04:30 Range/Units Serum Glucose 146 H 74-106 mg/dL Problem List Altered mental status, improving Metabolic encephalopathy secondary to DKA, sepsis Rule out other acute central nervous sleep disorder, less likely Anisocoria, resolved, with uncertain clinical significance Diabetic ketoacidosis Sepsis Metabolic acidosis Left foot cellulitis Left foot osteomyelitis Acute respiratory failure COVID-19 Reported dementia Assessment/Plan Monitoring Supportive treatment ICU care Stabilize vitals Respiratory support Oxygen Glucose control IV antibiotics Wound Care GI prophylaxis More recommendation per clinical course He has liked to have poor prognosis for over recovery, I recommend the family to reconsider code status This medical document was created using an electronic medical record system with [employer] dictation system. Although this document has been carefully reviewed, there may still be some phonetic and typographical errors. These areas are purely typographical due to imperfections of the software programs, and do not reflect any compromise in the patient's medical care. Prognosis poor Dietary Evaluation Review Comments: 1. glucerna 50/hr, along with Propofol 257kcal provide 100% Protein needs and 128% energy needs. Adding Ryder BID will promote wound healing. 2. Continure TF protocol, 3. Reassess when pt is extubated 4. Advance to CCHO-60 diet when pt passes SEARCH ANALYST eval. Expected Outcomes/Goals: gradually healed wound, Avoid catabolic syndrome Plan discussed with: Other WELLINGTON KELLY MD Jul 03, 2025 19:29
[2025-07-04] VITALS (25 sets, daily range): BP systolic 89–126; BP diastolic 51–85; PULSE 80–97; RESP 11–24; TEMP 98–99.7; O2SAT 97–100
[2025-07-04 05:05] LABS: Anion Gap 9.0 (5-15); Carbon Dioxide 24.0 mmol/L (20-31); Chloride 102.0 mmol/L (98-107)
[2025-07-04 05:11] LABS: BUN/Creatinine Ratio 16.5 (10.0-20.0); Blood Urea Nitrogen 14.0 mg/dL (9-23)
[2025-07-04 05:12] LABS: Magnesium 1.9 mg/dL (1.6-2.6)
[2025-07-04 05:22] LABS: Albumin 2.9 g/dL (3.2-4.8); Calcium 7.9 mg/dL (8.7-10.4); Glucose 230.0 mg/dL (74-106); Potassium 3.3 mmol/L (3.5-5.1); Sodium 135.0 mmol/L (136-145)
[2025-07-04] MEDS: POTASSIUM PHOSPHATE 22 MEQ in SODIUM CHL 0.9% 100 ML IV ONE (08:05)
--- NOTE | 2025-07-04 08:45 | DVHPN2 ---
Subjective Patient following some commands. Reviewed: Care Plan, H&P, Labs, Medications, Previous Orders, Radiology Changes from previous H/P or p: No Changes General: Per HPI Eyes: No Pain, No Vision change, No Conjunctivae inflammation, No Eyelid inflammation, No Other, No Redness ENT: No Ear pain, No Ear discharge, No Nose pain, No Nose discharge, No Nose congestion, No Mouth pain, No Mouth swelling, No Throat pain, No Throat swelling, No Other Cardiovascular: No Chest Pain, No Palpitations, No Orthopnea, No Paroxysmal Noc. Dyspnea, No Edema, No Lt Headedness; Other (Hypotension) Respiratory: No Cough, No Dry; Shortness of breath; No SOB with excertion, No Wheezing, No Hemoptysis, No Pleuritic Pain, No Sputum, No Other Gastrointestinal: No Nausea, No Vomiting, No Abdominal Pain, No Diarrhea, No Constipation, No Melena, No Hematochezia, No Other Genitourinary: No Dysuria, No Frequency, No Incontinence, No Hematuria, No Retention, No Other Musculoskeletal: other (BKA (LLE), RLE toe amputation); No neck pain, No shoulder pain, No arm pain, No back pain, No hand pain, No leg pain, No foot pain Skin: No Rash, No Lesions, No Jaundice, No Bruising, No Other Objective Vitals Vital Signs Date Time Temp Pulse Resp B/P (MAP) Pulse Ox O2 Delivery O2 Flow Rate FiO2 07/04/25 07:00 99.1 88 15 103/61 (75) 100 210.4 07/04/25 06:00 Room Air* 0 21 Intake/Output Intake and Output 07/04/25 07:00 Intake Total 794.50 ml Output Total 1900 ml Balance -1105.50 ml Intake Oral 50 ml IV Total 744.50 ml Output Urine Total 1900 ml General Appearance: Alert, Cooperative, No acute distress, Other (Encephalopathic) HEENT: Atraumatic, PERRLA Lungs: Clear to auscultation, Other (Decreased air entry bilaterally) Cardiovascular: Regular rate, Normal S1, Normal S2 Abdomen: Normal bowel sounds, Soft, No tenderness, No hepatospenomegaly Genitourinary: No Apparent Abnormalities (Garcia catheter) Musculoskeletal: Other (Unable to assess) Extremities: Normal pulses, Other (Right foot with worsening gangrene) Neuro: Other (Unable to assess) Skin: Wounds (See nurse notes and pictures), Other (Right foot gangrene. Status post surgery) Psych/Mental Status: Other (Unable to assess) Medications Current Medications Medications Dose Ordered Sig/Philip Route Start Time Stop Time Status Last Admin Dose Admin Dextrose 50 ml UD PRN IV 06/18/25 17:00 Cancel Vancomycin HCl 0 ml @ 0 mls/hr UD IV 06/18/25 20:30 Ondansetron HCl 4 mg Q4HP PRN IV 06/18/25 20:30 Nitroglycerin 0.4 mg Q5MINP PRN SL 06/18/25 20:30 Morphine Sulfate 2 mg Q30M PRN IV 06/18/25 20:30 Diagnostic Test (Pha) 1 strip Q6HR 06/21/25 12:00 07/04/25 06:00 1 STRIP Insulin Human Regular Q6HR SC 06/21/25 12:00 07/04/25 06:00 6 UNITS Dextrose 50 ml UD PRN IV 06/21/25 11:15 Pantoprazole Sodium 40 mg BID IV 06/21/25 22:00 07/03/25 22:19 40 MG Micafungin Sodium 100 mg/Sodium Chloride 100 ml @ 100 mls/hr DAILY IV 06/22/25 10:15 07/03/25 10:04 100 MLS/HR Enteral Nutritional Formula 1,000 ml 50ML/HR GT 06/23/25 07:00 06/30/25 02:30 1,000 ML Acetaminophen 650 mg Q6HP PRN GT 06/25/25 12:30 07/01/25 01:47 650 MG Cefepime HCl 50 ml @ 12.5 mls/hr Q8HR IV 06/26/25 22:00 07/04/25 06:32 12.5 MLS/HR Acetaminophen 650 mg Q6HP PRN [place] 07/01/25 14:00 Vancomycin HCl 100 ml @ 100 mls/hr Q24H IV 07/02/25 18:00 07/03/25 18:22 100 MLS/HR Amino Acids 0 ml @ 0 mls/hr PER PHARMACY IV 07/02/25 10:00 Morphine Sulfate 1 mg Q4HP PRN IV 07/02/25 10:00 07/03/25 22:37 1 MG Amino Acids/ Electrolytes/ Dextrose 1,000 ml @ 41 mls/hr DAILY@2200 IV 07/02/25 22:00 07/03/25 22:19 41 MLS/HR Laboratory Results Laboratory Tests 07/03/25 04:32 07/04/25 04:30 Chemistry Test 07/04/25 04:30 Albumin 2.9 g/dL (3.2-4.8) L Calcium Level 7.9 mg/dL (8.7-10.4) L Magnesium Level 1.9 mg/dL (1.6-2.6) Phosphorus Level 1.5 mg/dL (2.4-5.1) L Urinalysis Test 06/18/25 13:37 Urine Color Light-yellow (Yellow) Urine Clarity Clear (Clear) Urine pH 5.5 (5.0-9.0) Urine Specific [place] 1.025 (1.001-1.035) Urine Protein Trace (Negative) H Urine Ketones 2+ (Negative) H Urine Blood Trace /uL (Negative) H Urine Nitrite Negative (Negative) Urine Bilirubin Negative (Negative) Urine Urobilinogen Normal mg/dL (Negative) Urine Leukocyte Esterase Negative /uL (Negative) Urine RBC 1 /hpf (0 - 3) Urine Microscopic WBC < 1 /HPF (0-3) Urine Squamous Epithelial Cells None seen /hpf (<5) Urine Bacteria Few /hpf (None Seen) H Urine Hyaline Casts Few /lpf (0 - 2) Urine Glucose 4+ mg/dL (Normal) H Microbiology Microbiology Date/Time Source Procedure Growth Status 06/22/25 00:10 Nose MRSA Screen - Final Complete 06/18/25 15:04 Sputum Gram Stain - Final Complete 06/18/25 15:04 Respiratory Culture - Final Klebsiella pneumoniae Leclercia adecarboxylata Enterobacter cloacae Citrobacter farmeri Complete 06/18/25 13:09 Blood Blood Culture - Final NO GROWTH AFTER 5 DAYS OF INCUBATION. Complete Labs and/or images reviewed: Labs reviewed by me, Image(s) reviewed by me Assessment/Plan Assessment/Plan Impression: -septic shock -right foot osteomyelitis -diabetic ketoacidosis -acute hypoxic respiratory failure -diabetes mellitus -primary hypertension -acute kidney injury -decubitus ulcer -acute delirium -community-acquired pneumonia, Gram-positive and Gram-negative etiology -COVID-19 Plan: Events: Patient more alert and following some commands. Patient tolerating oral intake without any signs aspiration. -regular insulin sliding scale -swallow evaluation -continue Clinimix at this time -Protonix 40 mg IV b.i.d. -continue vancomycin, cefepime, Diflucan -repeat labs in a.m. Transferred to telemetry floor Total time spent with patient discussing and formulating plan of care: 35 minutes. This medical document was created using an electronic medical record system with [employer] dictation system. Although this document has been carefully reviewed, there may still be some phonetic and typographical errors. These areas are purely typographical due to imperfections of the software programs, and do not reflect any compromise in the patient's medical care. Plan discussed with: Patient, Other (RN) My Orders Orders - MAINE VELAZCO NP Procedure Category Date Status Time Pureed DIET 07/03/25 Transmitted Lunch Swallow Eval Follow Up FEDE 07/03/25 In Process 10:22 Clinimix Per Pharmacy FEDE 07/03/25 In Process 17:16 Potassium Phosphate PHA 07/04/25 In Process 07:30 Transfer Orders XFER 07/04/25 Verified 08:42 Nutritional PHA 07/04/25 Verified Supplements (Glucerna 18:00 Complete Blood Count LAB 07/05/25 Verified 04:00 Comprehensive LAB 07/05/25 Verified Metabolic Panel 04:00 Date of Service: Jul 04, 2025 Billing Provider: MAINE VELAZCO NP Common Visit Codes: [id number] INP/OBS CARE(HIGH) MAINE VELAZCO NP Jul 04, 2025 08:45
[2025-07-04] MEDS: InsuLIN REG 1unit/0.01ml Soln (100units/ml) SC SCH (17:38)
[2025-07-04] MEDS: Glucerna Carbsteady SHAKE Vanilla 8oz PO SCH (18:00)
[2025-07-05] VITALS (19 sets, daily range): BP systolic 86–123; BP diastolic 50–71; PULSE 76–113; RESP 11–23; TEMP 97.7–99.6; O2SAT 95–100
--- NOTE | 2025-07-05 02:59 | DVH ---
CHEST RADIOGRAPH Indication: assessment of chest post rapid response Technique: Single frontal view of the chest was obtained COMPARISON: XY CHEST PORTABLE on DOS: 07/01/25, XY CHEST PORTABLE on DOS: 06/30/25, XY CHEST PORTABLE o n DOS: 06/28/25, XY CHEST PORTABLE on DOS: 06/27/25, XY CHEST PORTABLE on DOS: 06/26/25 FINDINGS: Lines and Tubes: Status post interval extubation and removal of enteric catheter. Right internal jug ular central venous catheter is unchanged. Lungs: Clear Pleura: No effusion. No pneumothorax. Cardiomediastinal contours: Unremarkable Bones: Unremarkable IMPRESSION: 1. No acute cardiopulmonary disease. 2. Status post interval extubation and removal of enteric catheter. 3. Right IJ catheter.
[2025-07-05 03:07] LABS: Base Excess -3.0 mmol/L (-2.0-3.0)
[2025-07-05 03:14] LABS: Hematocrit 29.7 % (41.0-53.0); Hemoglobin 10.1 g/dL (13.5-17.5); Mean Corpuscular Hemoglobin 33.1 pg (28.0-32.0); Mean Corpuscular Volume 97.5 fL (80.0-100.0); Nucleated Red Blood Cells % 0.1 %
[2025-07-05 03:24] LABS: Chloride 104 mmol/L (98-107); Potassium 3.2 mmol/L (3.5-5.1); Sodium 136 mmol/L (136-145)
[2025-07-05 03:25] LABS: Anion Gap 11 (5-15); Calcium 8.3 mg/dL (8.7-10.4); Carbon Dioxide 21 mmol/L (20-31)
[2025-07-05 03:30] LABS: BUN/Creatinine Ratio 15.9 (10.0-20.0); Blood Urea Nitrogen 14 mg/dL (9-23)
[2025-07-05 03:31] LABS: Magnesium 1.8 mg/dL (1.6-2.6)
[2025-07-05 03:37] LABS: Glucose 236 mg/dL (74-106)
[2025-07-05] MEDS ORDERED: MAGNESIUM SULFATE 1GM/100ML 100 ML IV SCH (05:00)
[2025-07-05] MEDS: POTASSIUM CHL 20MEQ/100ML 100 ML IV SCH ×2 (06:16→14:45)
--- NOTE | 2025-07-05 08:31 | DVHPN2 ---
[facility] DOS: 07/04/2025 Patient seen and examined at bedside. Breathing comfortably on room air. Overnight events reviewed HPI: Patient is a 70-year old gentleman with PMHx of dementia, hypertension and diabetes who presented to ED on 06/18/25 with c/o altered mental status and generalized weakness. When EMS arrived on the scene, patient's blood sugar was high, hypotensive with blood pressure 76/40, increased work of breathing, and was given IV fluid normal saline, O2 saturation at 96% en route to our facility ED Was seen in the emergency room, where he was intubated for airway protection and placed on mechanical ventilation. Initial settings AC volume control RR 20, tidal volume 400, PEEP 5, FiO2 100%. Patient was also found to have a markedly elevated blood sugar consistent with DKA and he was started on IV insulin drip. ABG pH 7.05, pCO2 30, pO2 440. Pt also tested positive for COVID-19. Initial ED workup: WBC 26.7, platelets 568, sodium 126, potassium 5.5, BUN 43, creatinine 2 five eight, GFR 34, glucose 852, anion gap 26, acetone > 4.500, calcium 10.2 trending down to 8.4, troponin 31. Chest x-ray revealed no evidence of acute cardiopulmonary process. Patient was admitted for further care. Pulmonary consultation was requested for evaluation and management of acute hypoxic respiratory failure, pneumonia and COVID-19 Past Medical History DM, hypertension and dementia. Past Surgical History BKA (LLE), RLE toe amputation. Medications: Reviewed. Allergies: No known drug allergies. Family History No family history of premature CAD. No family history of lung disorders. Social History: Nonsmoker. No alcohol or illicit drug use. Reviewed: Care Plan, H&P, Labs, Medications, Previous Orders, Radiology Changes from previous H/P or p: No Changes General: Per HPI Eyes: No Pain, No Vision change, No Conjunctivae inflammation, No Eyelid inflammation, No Other, No Redness ENT: No Ear pain, No Ear discharge, No Nose pain, No Nose discharge, No Nose congestion, No Mouth pain, No Mouth swelling, No Throat pain, No Throat swelling, No Other Cardiovascular: No Chest Pain, No Palpitations, No Orthopnea, No Paroxysmal Noc. Dyspnea, No Edema, No Lt Headedness; Other (Hypotension) Respiratory: No Cough, No Dry; Shortness of breath; No SOB with excertion, No Wheezing, No Hemoptysis, No Pleuritic Pain, No Sputum, No Other Gastrointestinal: No Nausea, No Vomiting, No Abdominal Pain, No Diarrhea, No Constipation, No Melena, No Hematochezia, No Other Genitourinary: No Dysuria, No Frequency, No Incontinence, No Hematuria, No Retention, No Other Musculoskeletal: other (BKA (LLE), RLE toe amputation); No neck pain, No shoulder pain, No arm pain, No back pain, No hand pain, No leg pain, No foot pain Skin: No Rash, No Lesions, No Jaundice, No Bruising, No Other Objective Vitals Vital Signs Date Time Temp Pulse Resp B/P (MAP) Pulse Ox O2 Delivery O2 Flow Rate FiO2 07/05/25 08:00 98.4 90 12 118/68 (85) 209.1 07/05/25 07:00 100 07/05/25 05:45 Room Air* 0 21 Intake/Output Intake and Output 07/05/25 07:00 Intake Total 1582.00 ml Output Total 1000 ml Balance 582.00 ml Intake Oral 380 ml IV Total 1202.00 ml Output Urine Total 1000 ml General Appearance: Alert, Cooperative, No acute distress, Other (Encephalopathic) HEENT: Atraumatic, PERRLA Lungs: Clear to auscultation, Other (Decreased air entry bilaterally) Cardiovascular: Regular rate, Normal S1, Normal S2 Abdomen: Normal bowel sounds, Soft, No tenderness, No hepatospenomegaly Genitourinary: No Apparent Abnormalities (Garcia catheter) Musculoskeletal: Other (Unable to assess) Extremities: Normal pulses, Other (Right foot with worsening gangrene) Neuro: Other (Unable to assess) Skin: Wounds (See nurse notes and pictures), Other (Right foot gangrene. Status post surgery) Psych/Mental Status: Other (Unable to assess) Medications Current Medications Medications Dose Ordered Sig/Philip Route Start Time Stop Time Status Last Admin Dose Admin Dextrose 50 ml UD PRN IV 06/18/25 17:00 Cancel Vancomycin HCl 0 ml @ 0 mls/hr UD IV 06/18/25 20:30 Ondansetron HCl 4 mg Q4HP PRN IV 06/18/25 20:30 Nitroglycerin 0.4 mg Q5MINP PRN SL 9/5/25 20:30 Morphine Sulfate 2 mg Q30M PRN IV 06/18/25 20:30 Diagnostic Test (Pha) 1 strip Q6HR 06/21/25 12:00 07/05/25 06:16 1 STRIP Dextrose 50 ml UD PRN IV 06/21/25 11:15 Pantoprazole Sodium 40 mg BID IV 06/21/25 22:00 07/04/25 22:53 40 MG Micafungin Sodium 100 mg/Sodium Chloride 100 ml @ 100 mls/hr DAILY IV 06/22/25 10:15 07/04/25 09:46 100 MLS/HR Enteral Nutritional Formula 1,000 ml 50ML/HR GT 06/23/25 07:00 06/30/25 02:30 1,000 ML Acetaminophen 650 mg Q6HP PRN GT 06/25/25 12:30 07/01/25 01:47 650 MG Cefepime HCl 50 ml @ 12.5 mls/hr Q8HR IV 06/26/25 22:00 07/05/25 06:15 12.5 MLS/HR Acetaminophen 650 mg Q6HP PRN OR 07/01/25 14:00 Vancomycin HCl 100 ml @ 100 mls/hr Q24H IV 07/02/25 18:00 07/04/25 17:38 100 MLS/HR Amino Acids 0 ml @ 0 mls/hr PER PHARMACY IV 07/02/25 10:00 Morphine Sulfate 1 mg Q4HP PRN IV 07/02/25 10:00 07/04/25 23:25 1 MG Amino Acids/ Electrolytes/ Dextrose 1,000 ml @ 41 mls/hr DAILY@2200 IV 07/02/25 22:00 07/04/25 22:54 41 MLS/HR Enteral Nutritional Formula 240 ml BIDWM PO 07/04/25 18:00 Insulin Human Regular FOLLOW SLIDING SCALE Q6HR SC 07/04/25 18:00 07/05/25 06:00 8 UNITS Potassium Chloride 100 ml @ 50 mls/hr Q2H IV 07/05/25 04:30 07/05/25 10:29 07/05/25 06:16 50 MLS/HR Laboratory Results Laboratory Tests 07/05/25 02:48 Chemistry Test 07/05/25 02:48 Calcium Level 8.3 mg/dL (8.7-10.4) L Magnesium Level 1.8 mg/dL (1.6-2.6) Phosphorus Level 2.0 mg/dL (2.4-5.1) L Urinalysis Test 06/18/25 13:37 Urine Color Light-yellow (Yellow) Urine Clarity Clear (Clear) Urine pH 5.5 (5.0-9.0) Urine Specific [place] 1.025 (1.001-1.035) Urine Protein Trace (Negative) H Urine Ketones 2+ (Negative) H Urine Blood Trace /uL (Negative) H Urine Nitrite Negative (Negative) Urine Bilirubin Negative (Negative) Urine Urobilinogen Normal mg/dL (Negative) Urine Leukocyte Esterase Negative /uL (Negative) Urine RBC 1 /hpf (0 - 3) Urine Microscopic WBC < 1 /HPF (0-3) Urine Squamous Epithelial Cells None seen /hpf (<5) Urine Bacteria Few /hpf (None Seen) H Urine Hyaline Casts Few /lpf (0 - 2) Urine Glucose 4+ mg/dL (Normal) H Blood Gas Results Test 07/05/25 02:52 Arterial Blood pH 7.471 (7.350-7.450) FiO2 % 28.0 Microbiology Microbiology Date/Time Source Procedure Growth Status 06/22/25 00:10 Nose MRSA Screen - Final Complete 06/18/25 15:04 Sputum Gram Stain - Final Complete 06/18/25 15:04 Respiratory Culture - Final Klebsiella pneumoniae Leclercia adecarboxylata Enterobacter cloacae Citrobacter farmeri Complete 06/18/25 13:09 Blood Blood Culture - Final NO GROWTH AFTER 5 DAYS OF INCUBATION. Complete Assessment/Plan Assessment/Plan Impression: Acute hypoxic respiratory failure Acute metabolic encephalopathy Pneumonia, likely GNR COVID-19 infection Right foot osteomyelitis Diabetic ketoacidosis Events: Remains on room air Supplemental oxygen PRN No acute overnight events. Continue supportive care Continue antibiotics Continue antifungals Head of bed elevation Aspiration precautions Patient is stable for downgrade from the pulmonary standpoint. Labs and imaging reviewed. Rest of plan as noted below. Plan: Supplemental oxygen PRN Titrate to keep O2 sats above 92%. Chest x-ray reveals no acute opacities. Continue antibiotics Follow up cultures Continue antifungals Hemodynamic monitoring. Supportive care. Monitor hemoglobin Transfuse if less than 7.0 g/dL. Pain control Avoid oversedation Monitor renal function. Monitor electrolytes. Supplement as necessary. Monitor ins and outs. Clinimix for nutritional support Wound care DVT prophylaxis. Prognosis: Guarded given patient's multiple co-morbidities. Rest of plan per hospitalist and other consultants. Thank you, BREANNA Serrato, for allowing me to participate in this patient's care. Further recommendations will depend on the patient's clinical course. Please do not hesitate to contact me if you have any questions or concerns. This medical document was created using an electronic medical record system with Gyst dictation system. Although these documentations are being carefully reviewed, there may still be some phonetic and typographical changes. The errors are purely typographical, due to imperfection on the software program, and do not reflect any compromise in the patient's medical care. Plan discussed with: Patient, Other (RN) Date of Service: Jul 04, 2025 Billing Provider: RENAE FLORES MD Common Visit Codes: [id number] INP/OBS CARE(HIGH) RENAE FLORES MD Jul 05, 2025 08:31
[2025-07-05] MEDS: MAGNESIUM SULFATE 1GM/100ML 100 ML IV SCH (12:11)
[2025-07-05] MEDS: SODIUM PHOSPHATES 40 MEQ in D5W 5% 250 ML IV ONE (12:12)
--- NOTE | 2025-07-05 12:41 | ECG ---
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
[2025-07-05] MEDS ORDERED: ACETAMINOPHEN 325 MG TAB PO PRN (14:45)
[2025-07-05] MEDS: METOPROLOL TARTRATE 25 MG TAB PO SCH (14:56)
--- NOTE | 2025-07-05 21:27 | DVHPN2 ---
Progress Note - Dictate Date Seen: Jul 05, 2025 Medical Necessity Reason Pt with a Central, PICC or Fol: No Subjective Mr. Nava is a 70 years old gentleman with a history of hypertension, diabetes, status post left BKA, right toe amputation, dementia, he was brought to the [facility] on 06/18/2025 with a chief company of general weakness, hypoglycemia, in the ER, the patient was confirmed to have altered mental status, and respiratory distress (RN note 06/18/25 13:39: The patient was oriented x1, with increased worked of breathing and RR: 29) and the patient was intubated in the emergency room In the hospital, the patient was also found to have DKA, pneumoniae, right foot cellulitis, COVID-19. With appropriate treatment, the patient has been stabilized, off sedation since 06/29/2025 however the patient is not waking up as anticipated I have seen and examined the patient, I have discussed with her nurses. He is awake, he answer questions, his voice is stronger and clear, he moves the arms and legs, he is only oriented to himself Again pupils equal round and reactive ABG, 06/18/2025: Metabolic acidosis, 06/19/2025: Compensated metabolic acidosis, 06/22/2025: Compensated metabolic acidosis Blood culture, 06/18/2025: Negative Respiratory culture, 06/18/2025: Klebsiella pneumoniae etc SARS-COV-2 Ag, 06/19/2025: Positive, 06/27/2025: Positive Urinalysis, 06/18/2025: No UTI WBC/HB/PLT/MCV, 06/18/2025: 26.7/14.6/568/113.4, 06/23/2025: 31.6/10.5/346/94.4, 06/28/2025: 16.5/10/403/95 Glucose, 06/18/2025: > , 600, > 600, 352 Beta hydroxybutyric acid, 06/18/2025: >4.5 Anion gap, 06/18/2025: 26, 21, 16 TBI/AST/ALT/AP, 06/28/2025: 0.6/52/18/530 Vitamin B12, 06/25/2025: 1816 Folic acid, 06/28/25: 8.18 TSH, 06/28/2025: 2.16 FT4, 06/28/2025: 0.94 Chest x-ray, 06/18/2025: No acute cardiopulmonary disease Chest x-ray, 06/18/2025: 1. Endotracheal tube 1.8 cm above the alexis. 2. Right internal jugular line either at the cavoatrial junction or within the right atrium. 3. Enteric tube below the left diaphragm in the stomach 4. No change in the cardiopulmonary findings compared film performed earlier today at 1:48 p.m. Chest x-ray, 06/28/2025: Lines and tubes in satisfactory position. Improving bilateral lung aeration CT, right foot, 06/21/2025: 1. Soft tissue emphysema centered around the residual 1st metatarsal stump. 2. Maintain elevated concern for osteomyelitis. 3. In regards to the clinical question, no definitive measurable absces CT head, 06/29/2025: No acute intracranial abnormality vital signs Vital Sign Date Time Temp Pulse Resp B/P (MAP) Pulse Ox O2 Delivery O2 Flow Rate FiO2 07/05/25 20:51 98.0 91 20 112/71 (85) 95 98.0 07/05/25 17:10 Room Air* 0 21 Total Intake and Output 07/04/25 07/04/25 07/05/25 15:00 23:00 07:00 Intake Total 542.75 ml 351.25 ml 688.0 ml Output Total 1000 ml Balance 542.75 ml -648.75 ml 688.0 ml medications Current Medications Medications Dose Ordered Sig/Philip Route Start Time Stop Time Status Last Admin Dose Admin Dextrose 50 ml UD PRN IV 06/18/25 17:00 Cancel Vancomycin HCl 0 ml @ 0 mls/hr UD IV 06/18/25 20:30 Ondansetron HCl 4 mg Q4HP PRN IV 06/18/25 20:30 Nitroglycerin 0.4 mg Q5MINP PRN SL 06/18/25 20:30 Morphine Sulfate 2 mg Q30M PRN IV 06/18/25 20:30 Diagnostic Test (Pha) 1 strip Q6HR 06/21/25 12:00 07/05/25 17:35 1 STRIP Dextrose 50 ml UD PRN IV 06/21/25 11:15 Pantoprazole Sodium 40 mg BID IV 06/21/25 22:00 07/05/25 09:32 40 MG Cefepime HCl 50 ml @ 12.5 mls/hr Q8HR IV 06/26/25 22:00 07/05/25 14:56 12.5 MLS/HR Vancomycin HCl 100 ml @ 100 mls/hr Q24H IV 07/02/25 18:00 07/05/25 18:19 100 MLS/HR Amino Acids 0 ml @ 0 mls/hr PER PHARMACY IV 07/02/25 10:00 Morphine Sulfate 1 mg Q4HP PRN IV 07/02/25 10:00 07/04/25 23:25 1 MG Amino Acids/ Electrolytes/ Dextrose 1,000 ml @ 41 mls/hr DAILY@2200 IV 07/02/25 22:00 07/04/25 22:54 41 MLS/HR Enteral Nutritional Formula 240 ml BIDWM PO 07/04/25 18:00 07/05/25 08:00 240 ML Insulin Human Regular FOLLOW SLIDING SCALE Q6HR SC 07/04/25 18:00 07/05/25 17:36 20 UNITS Magnesium Sulfate/ Dextrose 100 ml @ 100 mls/hr Q1HR IV 07/05/25 05:00 07/05/25 06:59 Cancel Metoprolol Tartrate 25 mg BID PO 07/05/25 10:00 07/05/25 14:56 25 MG Acetaminophen/ Hydrocodone Bitart 1 tab Q4HPRN PRN PO 07/05/25 12:45 Acetaminophen 650 mg Q6HP PRN PO 07/05/25 14:45 objective The patient is well-nourished and well-developed with no distress. Status Post left BKA , right toe amputation, signs of gangrene in the right foot MENTAL STATUS: Subjective CRANIAL NERVES: Pupils are equal, round and reactive.There are corneal reflexes and conjugated eye movement, sensorimotor examined in bilateral trigeminal distribution is unremarkable. No signs of facial weakness. SENSATION: Okay to light touch and light painful stimuli MOTOR: Normal tone in the upper and lower extremity. Normal muscle bulk. No fasciculations. He moves the arms and legs REFLEXES: Deep tendon reflexes are symmetrical. No pathological reflexes. CEREBELLAR/COORDINATION: Deferred GAIT/STATION: deferred. laboratory and microbiology Laboratory Tests 07/05/25 02:48 Test 07/05/25 02:48 Range/Units Serum Glucose 236 H 74-106 mg/dL Problem List Altered mental status, improving Metabolic encephalopathy secondary to DKA, sepsis Rule out other acute central nervous sleep disorder, less likely Anisocoria, resolved, with uncertain clinical significance Diabetic ketoacidosis Sepsis Metabolic acidosis Left foot cellulitis Left foot osteomyelitis Acute respiratory failure COVID-19 Reported dementia Assessment/Plan Monitoring Supportive treatment ICU care Stabilize vitals Respiratory support Oxygen Glucose control IV antibiotics Wound Care GI prophylaxis More recommendation per clinical course He has liked to have poor prognosis for over recovery, I recommend the family to reconsider code status This medical document was created using an electronic medical record system with [employer] dictation system. Although this document has been carefully reviewed, there may still be some phonetic and typographical errors. These areas are purely typographical due to imperfections of the software programs, and do not reflect any compromise in the patient's medical care. Prognosis poor Dietary Evaluation Review Comments: 1. glucerna 50/hr, along with Propofol 257kcal provide 100% Protein needs and 128% energy needs. Adding Ryder BID will promote wound healing. 2. Continure TF protocol, 3. Reassess when pt is extubated 4. 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 Expected Outcomes/Goals: gradually healed wound, Avoid catabolic syndrome Plan discussed with: Other WELLINGTON KELLY MD Jul 05, 2025 21:26
[2025-07-05] MEDS: HYDROcodone-ACET 5/325MG TAB PO PRN (22:05)
[2025-07-06] VITALS (8 sets, daily range): BP systolic 107–131; BP diastolic 53–89; PULSE 75–93; RESP 16–18; TEMP 96.6–99.2; O2SAT 94–100
[2025-07-06 07:31] LABS: Alanine Aminotransferase 12 U/L (7-40); Anion Gap 11 (5-15); BUN/Creatinine Ratio 15.9 (10.0-20.0); Blood Urea Nitrogen 14 mg/dL (9-23); Chloride 103 mmol/L (98-107); Magnesium 2.3 mg/dL (1.6-2.6); Potassium 4.1 mmol/L (3.5-5.1)
[2025-07-06 07:32] LABS: Total Protein 7.1 g/dL (5.7-8.2)
[2025-07-06 07:33] LABS: Bilirubin, Total 0.6 mg/dL (0.2-1.0)
[2025-07-06 07:34] LABS: Alkaline Phosphatase 227 U/L (46-116); Calcium 8.1 mg/dL (8.7-10.4); Carbon Dioxide 19 mmol/L (20-31); Glucose 323 mg/dL (74-106); Sodium 133 mmol/L (136-145)
[2025-07-06 07:35] LABS: Albumin 3.0 g/dL (3.2-4.8)
--- NOTE | 2025-07-06 10:37 | DVHPN2 ---
Subjective Patient following some commands. More altered today Reviewed: Care Plan, H&P, Labs, Medications, Previous Orders, Radiology Changes from previous H/P or p: Changes General: Per HPI Eyes: No Pain, No Vision change, No Conjunctivae inflammation, No Eyelid inflammation, No Other, No Redness ENT: No Ear pain, No Ear discharge, No Nose pain, No Nose discharge, No Nose congestion, No Mouth pain, No Mouth swelling, No Throat pain, No Throat swelling, No Other Cardiovascular: No Chest Pain, No Palpitations, No Orthopnea, No Paroxysmal Noc. Dyspnea, No Edema, No Lt Headedness; Other (Hypotension) Respiratory: No Cough, No Dry; Shortness of breath; No SOB with excertion, No Wheezing, No Hemoptysis, No Pleuritic Pain, No Sputum, No Other Gastrointestinal: No Nausea, No Vomiting, No Abdominal Pain, No Diarrhea, No Constipation, No Melena, No Hematochezia, No Other Genitourinary: No Dysuria, No Frequency, No Incontinence, No Hematuria, No Retention, No Other Musculoskeletal: other (BKA (LLE), RLE toe amputation); No neck pain, No shoulder pain, No arm pain, No back pain, No hand pain, No leg pain, No foot pain Skin: No Rash, No Lesions, No Jaundice, No Bruising, No Other Objective Vitals Vital Signs Date Time Temp Pulse Resp B/P (MAP) Pulse Ox O2 Delivery O2 Flow Rate FiO2 07/06/25 09:27 97 119/53 07/06/25 09:00 96.6 17 95 96.6 07/06/25 08:00 Room Air* 0 21 Intake/Output Intake and Output 07/06/25 07:00 Intake Total 1720.5 ml Output Total 3200 ml Balance -1479.5 ml Intake Oral 500 ml IV Total 1220.5 ml Output Urine Total 3200 ml # Bowel Movements 1 General Appearance: Alert, Cooperative, No acute distress, Other (Encephalopathic) HEENT: Atraumatic, PERRLA Lungs: Clear to auscultation, Other (Decreased air entry bilaterally) Cardiovascular: Regular rate, Normal S1, Normal S2 Abdomen: Normal bowel sounds, Soft, No tenderness, No hepatospenomegaly Genitourinary: No Apparent Abnormalities (Garcia catheter) Musculoskeletal: Other (Unable to assess) Extremities: Normal pulses, Other (Right foot with worsening gangrene) Neuro: Other (Unable to assess) Skin: Wounds (See nurse notes and pictures), Other (Right foot gangrene. Status post surgery) Psych/Mental Status: Other (Unable to assess) Medications Current Medications Medications Dose Ordered Sig/Philip Route Start Time Stop Time Status Last Admin Dose Admin Dextrose 50 ml UD PRN IV 06/18/25 17:00 Cancel Vancomycin HCl 0 ml @ 0 mls/hr UD IV 06/18/25 20:30 Ondansetron HCl 4 mg Q4HP PRN IV 06/18/25 20:30 Nitroglycerin 0.4 mg Q5MINP PRN SL 06/18/25 20:30 Morphine Sulfate 2 mg Q30M PRN IV 06/18/25 20:30 Diagnostic Test (Pha) 1 strip Q6HR 06/21/25 12:00 07/06/25 05:51 1 STRIP Dextrose 50 ml UD PRN IV 06/21/25 11:15 Pantoprazole Sodium 40 mg BID IV 06/21/25 22:00 07/06/25 09:27 40 MG Cefepime HCl 50 ml @ 12.5 mls/hr Q8HR IV 06/26/25 22:00 07/06/25 05:48 12.5 MLS/HR Amino Acids 0 ml @ 0 mls/hr PER PHARMACY IV 07/02/25 10:00 Morphine Sulfate 1 mg Q4HP PRN IV 07/02/25 10:00 07/04/25 23:25 1 MG Amino Acids/ Electrolytes/ Dextrose 1,000 ml @ 41 mls/hr DAILY@2200 IV 07/02/25 22:00 07/05/25 22:01 41 MLS/HR Enteral Nutritional Formula 240 ml BIDWM PO 07/04/25 18:00 07/05/25 08:00 240 ML Insulin Human Regular FOLLOW SLIDING SCALE Q6HR SC 07/04/25 18:00 07/06/25 05:51 20 UNITS Magnesium Sulfate/ Dextrose 100 ml @ 100 mls/hr Q1HR IV 07/05/25 05:00 07/05/25 06:59 Cancel Metoprolol Tartrate 25 mg BID PO 07/05/25 10:00 07/06/25 09:27 25 MG Acetaminophen/ Hydrocodone Bitart 1 tab Q4HPRN PRN PO 07/05/25 12:45 07/05/25 22:05 1 TAB Acetaminophen 650 mg Q6HP PRN PO 07/05/25 14:45 Vancomycin HCl 100 ml @ 100 mls/hr DAILY@1800 IV 07/06/25 18:00 Laboratory Results Laboratory Tests 07/05/25 02:48 07/06/25 05:08 Chemistry Test 07/06/25 05:08 Albumin 3.0 g/dL (3.2-4.8) L Calcium Level 8.1 mg/dL (8.7-10.4) L Magnesium Level 2.3 mg/dL (1.6-2.6) Phosphorus Level 2.3 mg/dL (2.4-5.1) L Total Protein 7.1 g/dL (5.7-8.2) LFT Test 07/06/25 05:08 Alanine Aminotransferase (ALT) 12 U/L (7-40) Alkaline Phosphatase 227 U/L (46-116) H Aspartate Amino Transferase (AST) 17 U/L (13-40) Total Bilirubin 0.6 mg/dL (0.2-1.0) Urinalysis Test 06/18/25 13:37 Urine Color Light-yellow (Yellow) Urine Clarity Clear (Clear) Urine pH 5.5 (5.0-9.0) Urine Specific [place] 1.025 (1.001-1.035) Urine Protein Trace (Negative) H Urine Ketones 2+ (Negative) H Urine Blood Trace /uL (Negative) H Urine Nitrite Negative (Negative) Urine Bilirubin Negative (Negative) Urine Urobilinogen Normal mg/dL (Negative) Urine Leukocyte Esterase Negative /uL (Negative) Urine RBC 1 /hpf (0 - 3) Urine Microscopic WBC < 1 /HPF (0-3) Urine Squamous Epithelial Cells None seen /hpf (<5) Urine Bacteria Few /hpf (None Seen) H Urine Hyaline Casts Few /lpf (0 - 2) Urine Glucose 4+ mg/dL (Normal) H Microbiology Microbiology Date/Time Source Procedure Growth Status 06/22/25 00:10 Nose MRSA Screen - Final Complete 06/18/25 15:04 Sputum Gram Stain - Final Complete 06/18/25 15:04 Respiratory Culture - Final Klebsiella pneumoniae Leclercia adecarboxylata Enterobacter cloacae Citrobacter farmeri Complete 06/18/25 13:09 Blood Blood Culture - Final NO GROWTH AFTER 5 DAYS OF INCUBATION. Complete Labs and/or images reviewed: Labs reviewed by me, Image(s) reviewed by me Assessment/Plan Assessment/Plan Impression: -septic shock -right foot osteomyelitis -diabetic ketoacidosis -acute hypoxic respiratory failure -diabetes mellitus -primary hypertension -acute kidney injury -decubitus ulcer -acute delirium -community-acquired pneumonia, Gram-positive and Gram-negative etiology -COVID-19 Plan: Events: Patient more confused. Discussion made with patient's son, Sunday regarding plan of care. At this time Milton was wishing to have the patient evaluated for right BKA. He was notified that he will need cardiac clearance as well as from a medical standpoint being high-risk. Given the patient was placed on hospice on his recent previous admission, patient will not be placed on hospice if receiving surgery and we will be transitioned to a care home facility. Sunday is agreeable with this plan of care. It was reiterated that patient needs to be accepted by the surgeon for BKA. -regular insulin sliding scale -swallow evaluation -continue Clinimix at this time -Protonix 40 mg IV b.i.d. -continue vancomycin, cefepime -repeat labs in a.m. Total time spent with patient discussing and formulating plan of care: 35 minutes. This medical document was created using an electronic medical record system with [employer]form dictation system. Although this document has been carefully reviewed, there may still be some phonetic and typographical errors. These areas are purely typographical due to imperfections of the software programs, and do not reflect any compromise in the patient's medical care. Plan discussed with: Patient, Other (RN) My Orders Orders - MAINE VELAZCO NP Procedure Category Date Status Time Hydrocodone-Acet PHA 07/05/25 In Process 5/325mg Tab ([place] 12:45 Acetaminophen Tablet PHA 07/05/25 In Process (Tylenol Tablet) 14:45 * Cardiology Consult CONS 07/06/25 Transmitted 10:24 * Surgical Consult CONS 07/06/25 Transmitted Date of Service: Jul 06, 2025 Billing Provider: MAINE VLEAZCO NP Common Visit Codes: [id number] INP/OBS CARE(HIGH) MAINE VELAZCO NP Jul 06, 2025 10:37
[2025-07-06] MEDS: SODIUM PHOSPHATES 20 MEQ in SODIUM CHL 0.9% 100 ML IV ONE (14:00)
--- NOTE | 2025-07-06 15:11 | DVHINCON2 ---
Date Seen: Jul 06, 2025 Referring Physician BREANNA Serrato Reason for Consultation Cardiac risk stratification History of Present Illness This is a 70-year-old male patient who presents to the emergency room with chief complaint of generalized weakness, elevated blood sugar, and hypotension. During this admission, the patient tested positive for COVID pneumonia and was mechanically intubated and has since then been extubated. At the time of assessment, the patient is unable to answer any questions. He is awake and alert but does not answer any questions being asked. Called and spoke with patient's son, Sunday, who was able to answer questions the patient's behalf. Cardiology has been consulted at this time for preprocedural cardiovascular examination for possible right [id number] amputation. Initial twelve lead electrocardiogram (found in cardio prospecting observer) reveals sinus tachycardia with PACs. A repeat twelve electrocardiogram was done at time of assessment and reveals normal sinus rhythm with inferior Q-waves. Significant past medical history includes type 2 diabetes mellitus and dementia. The patient comes from hospice care at home. Past Medical History Past medical history reviewed. No other significant than mentioned above. Past Surgical History Left onkky-mkj-hrso amputation Hernia repair Family History: Diabetes mellitus G8 MOTHER G8 FATHER Hypertension G8 MOTHER G8 FATHER Family History Family history reviewed. Social History Denies the use of tobacco, alcohol or illicit drugs. Allergies: Coded Allergies: NO KNOWN ALLERGIES (Unverified , 05/30/25) Home Meds Active Scripts Hydrocodone-Acetaminophen (Hydrocodone/Acetaminophen 5-325 mg) 1 Tab Tab, 1 TAB PO TIDP PRN for 7 Days, #21 TAB 0 Refills Prov:ELIAS BOB MD 06/09/25 Cephalexin (KEFLEX CAPSULE) 250 Mg Cp, 2 CAP PO BID for 14 Days, #56 CAP 0 Refills Prov:ELIAS BOB MD 06/09/25 Home Meds Home medications reviewed. Current Medications Current Medications Medications (Trade) Dose Ordered Sig/Philip Route PRN Reason Start Time Stop Time Status Last Admin Acetaminophen (Tylenol Tablet) 650 mg Q6HP PRN PO MILD PAIN (1-3 PAIN SCALE) 07/05/25 14:45 Potassium Chloride 100 ml @ 50 mls/hr Q2H IV 07/05/25 14:45 07/05/25 16:44 DC Vancomycin HCl 100 ml @ 100 mls/hr DAILY@1800 IV 07/06/25 18:00 Insulin Glargine (Lantus) 15 units HS SC 07/06/25 22:00 Review of Systems Constitutional: Generalized weakness Ears, Nose, & Throat: No symptom reported Eyes: No symptom reported Neurological: No symptoms reported Pulmonary/Respiratory: No symptoms reported Cardiovascular: No symptom reported Gastrointestinal: No symptom reported Genitourinary: No symptom reported Musculoskeletal: No symptom reported Skin: No symptom reported Psychiatric: No symptom reported Endocrine: No symptom reported Hematologic/Lymphatic: No symptom reported Vital Signs Vital Signs Date Time Temp Pulse Resp B/P (MAP) Pulse Ox O2 Delivery O2 Flow Rate FiO2 07/06/25 13:00 99.2 86 17 116/71 (86) 100 99.2 07/06/25 08:00 Room Air* 0 21 Physical Exam General Appearance: Frail, thin Pulmonary/Respiratory: Clear, bilateral breaths sounds. Cardiovascular/Chest: Regular rate and rhythm. Peripheral Pulses: 2+ Radial (R). 2+ Radial (L). Abdominal Exam: Normal bowel sounds. Ankle Exam: Negative ankle edema Lower extremities: Negative lower extremity edema Neuro/Mental Status: Alert Thoughts/Psych: Deferred Appearance: No acute distress. Skin Exam: Necrotic toes on right foot. Left yjilt-jte-iewj amputation Labs/Diagnostic Data Labs Test 07/06/25 11:42 07/06/25 05:08 07/05/25 19:11 07/05/25 02:52 Range/Units POC Glucose 173 H 70-106 mg/dl Sodium Level 133 L 136-145 mmol/L Potassium Level 4.1 3.5-5.1 mmol/L Chloride Level 103 98-107 mmol/L Carbon Dioxide Level 19 L 20-31 mmol/L Anion Gap 11 5-15 Blood Urea Nitrogen 14 9-23 mg/dL Creatinine 0.88 0.700-1.30 mg/dL Glomerular Filtration Rate Calc 93 >90 mL/min BUN/Creatinine Ratio 15.9 10.0-20.0 Serum Glucose 323 H 74-106 mg/dL Calcium Level 8.1 L 8.7-10.4 mg/dL Phosphorus Level 2.3 L 2.4-5.1 mg/dL Magnesium Level 2.3 1.6-2.6 mg/dL Total Bilirubin 0.6 0.2-1.0 mg/dL Aspartate Amino Transferase (AST) 17 13-40 U/L Alanine Aminotransferase (ALT) 12 7-40 U/L Alkaline Phosphatase 227 H 46-116 U/L Total Protein 7.1 5.7-8.2 g/dL Albumin 3.0 L 3.2-4.8 g/dL Vancomycin Level Trough 45.4 *H 5-10 ug/mL Blood Gas Specimen Type Arterial Blood Gas Sample Site Right brachial Blood Gas Patient Temperature 37.0 Arterial Blood Date Drawn [id number] Arterial Blood pH 7.471 H 7.350-7.450 Arterial Blood Partial Pressure CO2 27.5 L 35.0-48.0 mmHg Arterial Blood Partial Pressure O2 128.5 H 83.0-108.0 mmHg Arterial Blood HCO3 19.6 L 21.0-28.0 mmol/L Arterial Blood Oxygen Saturation 98.4 H 94.0-98.0 % Arterial Blood Base Excess -3.0 L -2.0-3.0 mmol/L Arterial Blood Oxyhemoglobin 97.6 94.0-98.0 % Arterial Blood Carboxyhemoglobin 0.3 L 0.5-1.5 % Arterial Blood Methemoglobin 0.5 0.0-1.5 % Vicente Test N/a Blood Gas Total Hemoglobin 10.80 L 13.5-17.5 g/dL Blood Gas Modality Nasal cannula Blood Gas Spontaneous Rate 16 FiO2 % 28.0 Test 07/05/25 02:48 07/04/25 04:30 07/03/25 04:30 07/02/25 05:06 Range/Units White Blood Count 11.4 H 4.4-10.8 10^3/uL Red Blood Count 3.05 L 4.5-5.90 10^6/uL Hemoglobin 10.1 L 13.5-17.5 g/dL Hematocrit 29.7 #L 41.0-53.0 % Mean Corpuscular Volume 97.5 80.0-100.0 fL Mean Corpuscular Hemoglobin 33.1 H 28.0-32.0 pg Mean Corpuscular Hemoglobin Concent 33.9 32.0-36.0 g/dL Red Cell Distribution Width 13.9 11.8-14.3 % Platelet Count 553 H 140-450 10^3/uL Mean Platelet Volume 8.1 6.9-10.8 fL Neutrophils (%) (Auto) 58.1 37.0-80.0 % Lymphocytes (%) (Auto) 27.0 10.0-50.0 % Monocytes (%) (Auto) 11.8 0.0-12.0 % Eosinophils (%) (Auto) 1.9 0.0-7.0 % Basophils (%) (Auto) 1.2 0.0-2.0 % Neutrophils # (Auto) 6.6 1.6-8.6 10 ^3/uL Lymphocytes # (Auto) 3.1 0.4-5.4 10 ^3/uL Monocytes # (Auto) 1.3 0-1.3 10 ^3/uL Eosinophils # (Auto) 0.2 0-0.8 10 ^3/uL Basophils # (Auto) 0.1 0-0.2 10 ^3/uL Nucleated Red Blood Cells 0.1 % Estimated GFR () 115 mL/min Estimated GFR (Non- 95 mL/min Triglycerides Level 117 < 150 mg/dL Random Vancomycin Level 18.4 H 5-10 ug/mL Test 07/01/25 09:29 06/30/25 06:02 06/28/25 17:05 06/28/25 05:00 Range/Units Blood Gas Pressure Support 8 Blood Gas PEEP or CPAP 5.0 Blood Gas Set Respiration Rate 18.0 Blood Gas Tidal Volume 400.0 Thyroid Stimulating Hormone (TSH) 2.16 0.55-4.78 uIU/mL Vitamin B12 Level 1816 H 211-911 pg/mL Folic Acid 8.18 >5.38 ng/mL Free Thyroxine (T4) Calculated 0.94 0.89-1.76 ng/dL Test 06/27/25 10:00 06/25/25 05:15 06/22/25 13:21 06/22/25 07:56 Range/Units SARS-CoV-2 Antigen (Rapid) Positive *A NEGATIVE Differential Total Cells Counted 100.0 100 Neutrophils % (Manual) 84 H 37.0-80.0 Band Neutrophils % (Manual) 3 Lymphocytes % (Manual) 9 L 10.0-50.0 Monocytes % (Manual) 3 0-12 Eosinophils % (Manual) 1 0-7 Basophils % (Manual) 0 0.0-2.0 Metamyelocytes % (manual) 0 Myelocytes % (Manual) 0 Promyelocytes % (Manual) 0 Blast Cells % (Manual) 0 Reactive Lymphocytes 0 Platelet Estimate Adequate Erythrocyte Sedimentation Rate 107 H 0-20 mm/hr C-Reactive Protein High Sensitivity 16.11 H <1.0 mg/dL Blood Gas Critical Value Read Back Yes Blood Gas Notified Whom vicky Serrato np Blood Gas Notified Time [id number] Blood Gas Notified By hrio Butler digital experience manager Test 06/21/25 13:35 06/19/25 07:36 06/18/25 16:25 06/18/25 15:25 Range/Units Beta-Hydroxybutyric Acid 0.292 < 0.4 mmol/L Influenza Type A Antigen Negative Negative Influenza Type B Antigen Negative Negative Troponin I High Sensitivity 55 *H </=54 ng/L Lactic Acid Level 2.3 *H 0.4-2.0 mmol/L Test 06/18/25 13:37 06/18/25 13:09 Range/Units Urine Color Light-yellow Yellow Urine Clarity Clear Clear Urine pH 5.5 5.0-9.0 Urine Specific [place] 1.025 1.001-1.035 Urine Protein Trace H Negative Urine Ketones 2+ H Negative Urine Blood Trace H Negative /uL Urine Nitrite Negative Negative Urine Bilirubin Negative Negative Urine Urobilinogen Normal Negative mg/dL Urine Leukocyte Esterase Negative Negative /uL Urine RBC 1 0 - 3 /hpf Urine Microscopic WBC < 1 0-3 /HPF Urine Squamous Epithelial Cells None seen <5 /hpf Urine Bacteria Few H None Seen /hpf Urine Hyaline Casts Few 0 - 2 /lpf Urine Glucose 4+ H Normal mg/dL Hypochromasia (manual) Slight Anisocytosis (manual) Slight Macrocytosis Marked Microbiology Date/Time Source Procedure Growth Status 06/22/25 00:10 Nose MRSA Screen - Final Complete 06/18/25 15:04 Sputum Gram Stain - Final Complete 06/18/25 15:04 Respiratory Culture - Final Klebsiella pneumoniae Leclercia adecarboxylata Enterobacter cloacae Citrobacter farmeri Complete 06/18/25 13:09 Blood Blood Culture - Final NO GROWTH AFTER 5 DAYS OF INCUBATION. Complete Assessment Preprocedural cardiovascular examination Acute hypoxic respiratory failure in the setting of COVID pneumonia Right foot osteomyelitis Sepsis Diabetic ketoacidosis Acute kidney injury, resolved Dementia Plan/Recommendation We will continue with the following plan/recommendations (Dr. Bowser): Transthoracic echocardiogram reveals EF 65%. Revised Cardiac Risk Index (Collin criteria): 2 points (5% risk of major cardiac event). The patient has no cardiac contraindications at this time to proceed with the procedure. There is no underlying history of congestive heart failure or coronary artery disease. Prior to admission, the patient has a poor functional capacity. Per cardiology standpoint, patient is at an moderate-risk for moderate-risk surgery. There is no additional cardiac work-up indicated prior to surgery. Thank you for allowing us to participate in this patient's care. Please call if you have any questions or concerns. Critical care time spent: 44 minutes This medical document was created using an electronic medical record system with voice recognition software and computerized dictation system. Although this document has been carefully reviewed, there might still be some phonetic and typographical errors. Occasional wrong-word or ``sound-alike substitutions may have occurred due to the inherent limitations of voice recognition software. These areas are purely typographical due to imperfections of the software programs and do not reflect any compromise in the patient's medical care. Please read the chart carefully and recognize, using context, where these substitutions have occurred. Plan discussed with: Patient NYHA Physical activity limitations: NA Date of Service: Jul 06, 2025 Billing Provider: AUGUST LARA Cardiology Common Codes: 08408-ZOPMKOP INP/OBS CARE (High) Cardiology Consultation Codes: [id number] CONSULT <45MIN AUGUST LARA Jul 06, 2025 15:11
--- NOTE | 2025-07-06 16:07 | DVHCONRES ---
Date Seen: Jul 06, 2025 Resident Creating Document: MARK ADKINS Jr., MD Referring Physician er Reason for Consultation Right foot gangrene History of Present Illness 70 years old gentleman with a history of hypertension, diabetes, status post left BKA, right toe amputation, dementia, he was brought to the [facility] [place] on 06/18/2025 with a chief company of general weakness, hypoglycemia, in the ER, the patient was confirmed to have altered mental status, and respiratory distress Since right toe amputation foot has become gangrenous and is nonsalvageable. Patient's family has agreed to undergo a below-knee amputation. Past Medical History Hypertension diabetes peripheral vascular disease Past Surgical History Left below-knee amputation 1st toe amputation Family History: Diabetes mellitus G8 MOTHER G8 FATHER Hypertension G8 MOTHER G8 FATHER Social History None Allergies: Coded Allergies: NO KNOWN ALLERGIES (Unverified , 05/30/25) Home Meds Active Scripts Hydrocodone-Acetaminophen (Hydrocodone/Acetaminophen 5-325 mg) 1 Tab Tab, 1 TAB PO TIDP PRN for 7 Days, #21 TAB 0 Refills Prov:ELIAS BOB MD 06/09/25 Cephalexin (KEFLEX CAPSULE) 250 Mg Cp, 2 CAP PO BID for 14 Days, #56 CAP 0 Refills Prov:ELIAS BOB MD 06/09/25 Current Medications Current Medications Medications (Trade) Dose Ordered Sig/Philip Route PRN Reason Start Time Stop Time Status Last Admin Vancomycin HCl 100 ml @ 100 mls/hr DAILY@1800 IV 07/06/25 18:00 Insulin Glargine (Lantus) 15 units HS SC 07/06/25 22:00 Review of Systems Systems reviewed Vital Signs Vital Signs Date Time Temp Pulse Resp B/P (MAP) Pulse Ox O2 Delivery O2 Flow Rate FiO2 07/06/25 13:00 99.2 86 17 116/71 (86) 100 99.2 07/06/25 08:00 Room Air* 0 21 Physical Exam Patient is not oriented currently head eyes ears nose throat exam nonicteric conjunctiva is pink neck was supple no JVD no all the set up and no carotid bruits lungs are clear to auscultation heart was regular rate and rhythm abdomen was soft nontender with no pulsatile abdominal mass or bruits lower extremities he has a gangrenous right foot. He has a well-healed left BKA Labs/Diagnostic Data Labs Test 07/06/25 11:42 07/06/25 05:08 07/05/25 19:11 07/05/25 02:52 Range/Units POC Glucose 173 H 70-106 mg/dl Sodium Level 133 L 136-145 mmol/L Potassium Level 4.1 3.5-5.1 mmol/L Chloride Level 103 98-107 mmol/L Carbon Dioxide Level 19 L 20-31 mmol/L Anion Gap 11 5-15 Blood Urea Nitrogen 14 9-23 mg/dL Creatinine 0.88 0.700-1.30 mg/dL Glomerular Filtration Rate Calc 93 >90 mL/min BUN/Creatinine Ratio 15.9 10.0-20.0 Serum Glucose 323 H 74-106 mg/dL Calcium Level 8.1 L 8.7-10.4 mg/dL Phosphorus Level 2.3 L 2.4-5.1 mg/dL Magnesium Level 2.3 1.6-2.6 mg/dL Total Bilirubin 0.6 0.2-1.0 mg/dL Aspartate Amino Transferase (AST) 17 13-40 U/L Alanine Aminotransferase (ALT) 12 7-40 U/L Alkaline Phosphatase 227 H 46-116 U/L Total Protein 7.1 5.7-8.2 g/dL Albumin 3.0 L 3.2-4.8 g/dL Vancomycin Level Trough 45.4 *H 5-10 ug/mL Blood Gas Specimen Type Arterial Blood Gas Sample Site Right brachial Blood Gas Patient Temperature 37.0 Arterial Blood Date Drawn [id number] Arterial Blood pH 7.471 H 7.350-7.450 Arterial Blood Partial Pressure CO2 27.5 L 35.0-48.0 mmHg Arterial Blood Partial Pressure O2 128.5 H 83.0-108.0 mmHg Arterial Blood HCO3 19.6 L 21.0-28.0 mmol/L Arterial Blood Oxygen Saturation 98.4 H 94.0-98.0 % Arterial Blood Base Excess -3.0 L -2.0-3.0 mmol/L Arterial Blood Oxyhemoglobin 97.6 94.0-98.0 % Arterial Blood Carboxyhemoglobin 0.3 L 0.5-1.5 % Arterial Blood Methemoglobin 0.5 0.0-1.5 % Vicente Test N/a Blood Gas Total Hemoglobin 10.80 L 13.5-17.5 g/dL Blood Gas Modality Nasal cannula Blood Gas Spontaneous Rate 16 FiO2 % 28.0 Test 07/05/25 02:48 07/04/25 04:30 07/03/25 04:30 07/02/25 05:06 Range/Units White Blood Count 11.4 H 4.4-10.8 10^3/uL Red Blood Count 3.05 L 4.5-5.90 10^6/uL Hemoglobin 10.1 L 13.5-17.5 g/dL Hematocrit 29.7 #L 41.0-53.0 % Mean Corpuscular Volume 97.5 80.0-100.0 fL Mean Corpuscular Hemoglobin 33.1 H 28.0-32.0 pg Mean Corpuscular Hemoglobin Concent 33.9 32.0-36.0 g/dL Red Cell Distribution Width 13.9 11.8-14.3 % Platelet Count 553 H 140-450 10^3/uL Mean Platelet Volume 8.1 6.9-10.8 fL Neutrophils (%) (Auto) 58.1 37.0-80.0 % Lymphocytes (%) (Auto) 27.0 10.0-50.0 % Monocytes (%) (Auto) 11.8 0.0-12.0 % Eosinophils (%) (Auto) 1.9 0.0-7.0 % Basophils (%) (Auto) 1.2 0.0-2.0 % Neutrophils # (Auto) 6.6 1.6-8.6 10 ^3/uL Lymphocytes # (Auto) 3.1 0.4-5.4 10 ^3/uL Monocytes # (Auto) 1.3 0-1.3 10 ^3/uL Eosinophils # (Auto) 0.2 0-0.8 10 ^3/uL Basophils # (Auto) 0.1 0-0.2 10 ^3/uL Nucleated Red Blood Cells 0.1 % Estimated GFR () 115 mL/min Estimated GFR (Non- 95 mL/min Triglycerides Level 117 < 150 mg/dL Random Vancomycin Level 18.4 H 5-10 ug/mL Test 07/01/25 09:29 06/30/25 06:02 06/28/25 17:05 06/28/25 05:00 Range/Units Blood Gas Pressure Support 8 Blood Gas PEEP or CPAP 5.0 Blood Gas Set Respiration Rate 18.0 Blood Gas Tidal Volume 400.0 Thyroid Stimulating Hormone (TSH) 2.16 0.55-4.78 uIU/mL Vitamin B12 Level 1816 H 211-911 pg/mL Folic Acid 8.18 >5.38 ng/mL Free Thyroxine (T4) Calculated 0.94 0.89-1.76 ng/dL Test 06/27/25 10:00 06/25/25 05:15 06/22/25 13:21 06/22/25 07:56 Range/Units SARS-CoV-2 Antigen (Rapid) Positive *A NEGATIVE Differential Total Cells Counted 100.0 100 Neutrophils % (Manual) 84 H 37.0-80.0 Band Neutrophils % (Manual) 3 Lymphocytes % (Manual) 9 L 10.0-50.0 Monocytes % (Manual) 3 0-12 Eosinophils % (Manual) 1 0-7 Basophils % (Manual) 0 0.0-2.0 Metamyelocytes % (manual) 0 Myelocytes % (Manual) 0 Promyelocytes % (Manual) 0 Blast Cells % (Manual) 0 Reactive Lymphocytes 0 Platelet Estimate Adequate Erythrocyte Sedimentation Rate 107 H 0-20 mm/hr C-Reactive Protein High Sensitivity 16.11 H <1.0 mg/dL Blood Gas Critical Value Read Back Yes Blood Gas Notified Whom vicky Serrato np Blood Gas Notified Time [id number] Blood Gas Notified By hiro Butler rrt Test 06/21/25 13:35 06/19/25 07:36 06/18/25 16:25 06/18/25 15:25 Range/Units Beta-Hydroxybutyric Acid 0.292 < 0.4 mmol/L Influenza Type A Antigen Negative Negative Influenza Type B Antigen Negative Negative Troponin I High Sensitivity 55 *H </=54 ng/L Lactic Acid Level 2.3 *H 0.4-2.0 mmol/L Test 06/18/25 13:37 06/18/25 13:09 Range/Units Urine Color Light-yellow Yellow Urine Clarity Clear Clear Urine pH 5.5 5.0-9.0 Urine Specific [place] 1.025 1.001-1.035 Urine Protein Trace H Negative Urine Ketones 2+ H Negative Urine Blood Trace H Negative /uL Urine Nitrite Negative Negative Urine Bilirubin Negative Negative Urine Urobilinogen Normal Negative mg/dL Urine Leukocyte Esterase Negative Negative /uL Urine RBC 1 0 - 3 /hpf Urine Microscopic WBC < 1 0-3 /HPF Urine Squamous Epithelial Cells None seen <5 /hpf Urine Bacteria Few H None Seen /hpf Urine Hyaline Casts Few 0 - 2 /lpf Urine Glucose 4+ H Normal mg/dL Hypochromasia (manual) Slight Anisocytosis (manual) Slight Macrocytosis Marked Microbiology Date/Time Source Procedure Growth Status 06/22/25 00:10 Nose MRSA Screen - Final Complete 06/18/25 15:04 Sputum Gram Stain - Final Complete 06/18/25 15:04 Respiratory Culture - Final Klebsiella pneumoniae Leclercia adecarboxylata Enterobacter cloacae Citrobacter farmeri Complete 06/18/25 13:09 Blood Blood Culture - Final NO GROWTH AFTER 5 DAYS OF INCUBATION. Complete Assessment Right foot gangrene We will need medical clearance prior to performing right below-knee amputation. Plan/Recommendation Right foot gangrene We will need medical clearance prior to performing right below-knee amputation. Plan discussed with: MARK Boone Jr., MD Jul 06, 2025 16:07
--- NOTE | 2025-07-06 17:48 | DVHSR ---
APPROVED REPORT EXAM: Two-dimensional and M-mode echocardiogram with Doppler and color Doppler. Blood Pressure: 116/71 mmHg INDICATION Pre-Op RISK FACTORS Height: 5'6", Weight: 129 DIMENSIONS LVDd3.6 (3.8-5.7cm)LA (2D)2.9 (1.9-4.0cm)Aortic Root3.6 (2.0-3.7cm) LVDs2.5 (2.5-4.0cm)LA (MM) (1.9-4.0cm)Aortic Cusp Exc1.8 (1.5-2.0cm) EF (%) 60.0 (55-70%)Rt. Atrium (1.9-4.0cm)Asc. Aorta3.4 cm IVSd0.7 (0.7-1.1cm)RV (D) (1.8-2.4cm) PWd0.6 (0.7-1.1cm) Mitral Valve MitralMitral Stenosis E wave0.45m/sMV Mean GR.mmHg A wave0.64m/sMV Peak GR.mmHg E/A ratio0.72D MVAcm2 DECEL [id number] 1/2 Timems Aortic Valve Aortic ValveAortic Stenosis V10.56m/Delio Mean GR.mmHg V20.79m/Delio Peak GR.2mmHg LVOT Diameter1.8 (1.8-2.4cm)Doppler AVA1.80cm2 2D AVA3.21cm2 Other Information Quality : Technically LimitedRhythm : Technically limited study due to body habitus and patient position. Conclusion LV EF IS 65% AND IS NORMAL GROSSLY NORMAL VALVES NORMAL RV FUNCTION NO EFFUSION
[2025-07-06] MEDS: VANCOMYCIN 750MG KIT 100 ML IV SCH (18:27)
[2025-07-06] MEDS: INSULIN LANTUS (GLARGINE) 1 /0.01ml (100units/ml) SC SCH (22:21)
--- NOTE | 2025-07-06 23:09 | DVHPN2 ---
[facility] DOS: 07/06/2025 Patient seen and examined at bedside. Breathing comfortably on room air. Overnight events reviewed HPI: Patient is a 70-year old gentleman with PMHx of dementia, hypertension and diabetes who presented to ED on 06/18/25 with c/o altered mental status and generalized weakness. When EMS arrived on the scene, patient's blood sugar was high, hypotensive with blood pressure 76/40, increased work of breathing, and was given IV fluid normal saline, O2 saturation at 96% en route to our facility ED Was seen in the emergency room, where he was intubated for airway protection and placed on mechanical ventilation. Initial settings AC volume control RR 20, tidal volume 400, PEEP 5, FiO2 100%. Patient was also found to have a markedly elevated blood sugar consistent with DKA and he was started on IV insulin drip. ABG pH 7.05, pCO2 30, pO2 440. Pt also tested positive for COVID-19. Initial ED workup: WBC 26.7, platelets 568, sodium 126, potassium 5.5, BUN 43, creatinine 2 five eight, GFR 34, glucose 852, anion gap 26, acetone > 4.500, calcium 10.2 trending down to 8.4, troponin 31. Chest x-ray revealed no evidence of acute cardiopulmonary process. Patient was admitted for further care. Pulmonary consultation was requested for evaluation and management of acute hypoxic respiratory failure, pneumonia and COVID-19 Past Medical History DM, hypertension and dementia. Past Surgical History BKA (LLE), RLE toe amputation. Medications: Reviewed. Allergies: No known drug allergies. Family History No family history of premature CAD. No family history of lung disorders. Social History: Nonsmoker. No alcohol or illicit drug use. Reviewed: Care Plan, H&P, Labs, Medications, Previous Orders, Radiology Changes from previous H/P or p: No Changes General: Per HPI Eyes: No Pain, No Vision change, No Conjunctivae inflammation, No Eyelid inflammation, No Other, No Redness ENT: No Ear pain, No Ear discharge, No Nose pain, No Nose discharge, No Nose congestion, No Mouth pain, No Mouth swelling, No Throat pain, No Throat swelling, No Other Cardiovascular: No Chest Pain, No Palpitations, No Orthopnea, No Paroxysmal Noc. Dyspnea, No Edema, No Lt Headedness; Other (Hypotension) Respiratory: No Cough, No Dry; Shortness of breath; No SOB with excertion, No Wheezing, No Hemoptysis, No Pleuritic Pain, No Sputum, No Other Gastrointestinal: No Nausea, No Vomiting, No Abdominal Pain, No Diarrhea, No Constipation, No Melena, No Hematochezia, No Other Genitourinary: No Dysuria, No Frequency, No Incontinence, No Hematuria, No Retention, No Other Musculoskeletal: other (BKA (LLE), RLE toe amputation); No neck pain, No shoulder pain, No arm pain, No back pain, No hand pain, No leg pain, No foot pain Skin: No Rash, No Lesions, No Jaundice, No Bruising, No Other Objective Vitals Vital Signs Date Time Temp Pulse Resp B/P (MAP) Pulse Ox O2 Delivery O2 Flow Rate FiO2 07/06/25 21:56 90 107/65 07/06/25 20:46 97.6 16 94 97.6 07/06/25 20:00 Room Air* 0 21 Intake/Output Intake and Output 07/06/25 07:00 Intake Total 1720.5 ml Output Total 3200 ml Balance -1479.5 ml Intake Oral 500 ml IV Total 1220.5 ml Output Urine Total 3200 ml # Bowel Movements 1 General Appearance: Alert, Cooperative, No acute distress, Other (Encephalopathic) HEENT: Atraumatic, PERRLA Lungs: Clear to auscultation, Other (Decreased air entry bilaterally) Cardiovascular: Regular rate, Normal S1, Normal S2 Abdomen: Normal bowel sounds, Soft, No tenderness, No hepatospenomegaly Genitourinary: No Apparent Abnormalities (Garcia catheter) Musculoskeletal: Other (Unable to assess) Extremities: Normal pulses, Other (Right foot with worsening gangrene) Neuro: Other (Unable to assess) Skin: Wounds (See nurse notes and pictures), Other (Right foot gangrene. Status post surgery) Psych/Mental Status: Other (Unable to assess) Medications Current Medications Medications Dose Ordered Sig/Philip Route Start Time Stop Time Status Last Admin Dose Admin Dextrose 50 ml UD PRN IV 06/18/25 17:00 Cancel Vancomycin HCl 0 ml @ 0 mls/hr UD IV 06/18/25 20:30 Ondansetron HCl 4 mg Q4HP PRN IV 06/18/25 20:30 Nitroglycerin 0.4 mg Q5MINP PRN SL 06/18/25 20:30 Morphine Sulfate 2 mg Q30M PRN IV 06/18/25 20:30 Diagnostic Test (Pha) 1 strip Q6HR 06/21/25 12:00 07/06/25 17:23 1 STRIP Dextrose 50 ml UD PRN IV 06/21/25 11:15 Pantoprazole Sodium 40 mg BID IV 06/21/25 22:00 07/06/25 21:53 40 MG Cefepime HCl 50 ml @ 12.5 mls/hr Q8HR IV 06/26/25 22:00 07/06/25 21:56 12.5 MLS/HR Amino Acids 0 ml @ 0 mls/hr PER PHARMACY IV 07/02/25 10:00 Morphine Sulfate 1 mg Q4HP PRN IV 07/02/25 10:00 07/04/25 23:25 1 MG Amino Acids/ Electrolytes/ Dextrose 1,000 ml @ 41 mls/hr DAILY@2200 IV 07/02/25 22:00 07/06/25 21:56 41 MLS/HR Enteral Nutritional Formula 240 ml BIDWM PO 07/04/25 18:00 07/06/25 18:26 240 ML Insulin Human Regular FOLLOW SLIDING SCALE Q6HR SC 07/04/25 18:00 07/06/25 17:24 2 UNITS Magnesium Sulfate/ Dextrose 100 ml @ 100 mls/hr Q1HR IV 07/05/25 05:00 07/05/25 06:59 Cancel Metoprolol Tartrate 25 mg BID PO 07/05/25 10:00 07/06/25 21:56 25 MG Acetaminophen/ Hydrocodone Bitart 1 tab Q4HPRN PRN PO 07/05/25 12:45 07/06/25 12:38 1 TAB Acetaminophen 650 mg Q6HP PRN PO 07/05/25 14:45 Vancomycin HCl 100 ml @ 100 mls/hr DAILY@1800 IV 07/06/25 18:00 07/06/25 18:27 100 MLS/HR Insulin Glargine 15 units HS SC 07/06/25 22:00 07/06/25 22:21 15 UNITS Laboratory Results Laboratory Tests 07/05/25 02:48 07/06/25 05:08 Chemistry Test 07/06/25 05:08 Albumin 3.0 g/dL (3.2-4.8) L Calcium Level 8.1 mg/dL (8.7-10.4) L Magnesium Level 2.3 mg/dL (1.6-2.6) Phosphorus Level 2.3 mg/dL (2.4-5.1) L Total Protein 7.1 g/dL (5.7-8.2) LFT Test 07/06/25 05:08 Alanine Aminotransferase (ALT) 12 U/L (7-40) Alkaline Phosphatase 227 U/L (46-116) H Aspartate Amino Transferase (AST) 17 U/L (13-40) Total Bilirubin 0.6 mg/dL (0.2-1.0) Urinalysis Test 06/18/25 13:37 Urine Color Light-yellow (Yellow) Urine Clarity Clear (Clear) Urine pH 5.5 (5.0-9.0) Urine Specific [place] 1.025 (1.001-1.035) Urine Protein Trace (Negative) H Urine Ketones 2+ (Negative) H Urine Blood Trace /uL (Negative) H Urine Nitrite Negative (Negative) Urine Bilirubin Negative (Negative) Urine Urobilinogen Normal mg/dL (Negative) Urine Leukocyte Esterase Negative /uL (Negative) Urine RBC 1 /hpf (0 - 3) Urine Microscopic WBC < 1 /HPF (0-3) Urine Squamous Epithelial Cells None seen /hpf (<5) Urine Bacteria Few /hpf (None Seen) H Urine Hyaline Casts Few /lpf (0 - 2) Urine Glucose 4+ mg/dL (Normal) H Microbiology Microbiology Date/Time Source Procedure Growth Status 06/22/25 00:10 Nose MRSA Screen - Final Complete 06/18/25 15:04 Sputum Gram Stain - Final Complete 06/18/25 15:04 Respiratory Culture - Final Klebsiella pneumoniae Leclercia adecarboxylata Enterobacter cloacae Citrobacter farmeri Complete 06/18/25 13:09 Blood Blood Culture - Final NO GROWTH AFTER 5 DAYS OF INCUBATION. Complete Assessment/Plan Assessment/Plan Impression: Acute hypoxic respiratory failure Acute metabolic encephalopathy Pneumonia, likely GNR COVID-19 infection Right foot osteomyelitis Diabetic ketoacidosis Events: Remains on room air Supplemental oxygen PRN No acute overnight events. Chest x-ray reveals no acute opacities. Cardiology recs appreciated. Vascular Surgery recs appreciated. Continue supportive care Continue antibiotics Head of bed elevation Aspiration precautions Wound care Clinimix for nutritional support Accu-Cheks, ISS. Protonix for GI ppx. Labs and imaging reviewed. Rest of plan as noted below. Plan: Supplemental oxygen PRN Titrate to keep O2 sats above 92%. Continue antibiotics Follow up cultures Hemodynamic monitoring. Supportive care. Monitor hemoglobin Transfuse if less than 7.0 g/dL. Pain control Avoid oversedation Monitor renal function. Monitor electrolytes. Supplement as necessary. Monitor ins and outs. Clinimix for nutritional support Wound care DVT prophylaxis. Prognosis: Guarded given patient's multiple co-morbidities. Rest of plan per hospitalist and other consultants. Thank you, BREANNA Serrato, for allowing me to participate in this patient's care. Further recommendations will depend on the patient's clinical course. Please do not hesitate to contact me if you have any questions or concerns. This medical document was created using an electronic medical record system with [employer] dictation system. Although these documentations are being carefully reviewed, there may still be some phonetic and typographical changes. The errors are purely typographical, due to imperfection on the software program, and do not reflect any compromise in the patient's medical care. Plan discussed with: Patient, Other (RN) Date of Service: Jul 06, 2025 Billing Provider: RENAE FLORES MD Common Visit Codes: [id number] INP/OBS CARE(HIGH) RENAE FLORES MD Jul 06, 2025 23:08
[2025-07-06 23:42] LABS: Urine Budding Yeast FEW /hpf (None Seen); Urine Protein, UAD 1+ (Negative)
--- NOTE | 2025-07-06 23:45 | DVHINCON2 ---
Date Seen: Jul 06, 2025 Referring Physician BREANNA Serrato Reason for Consultation Cardiac risk stratification History of Present Illness This is a 70-year-old male with a PMH of type 2 diabetes mellitus and dementia who presents to the emergency room with chief complaint of generalized weakness, elevated blood sugar, and hypotension. During this admission, the patient tested positive for COVID pneumonia and was mechanically intubated and has since then been extubated. At the time of assessment, the patient is unable to answer any questions. He is awake and alert but does not answer any questions being asked. Called and spoke with patient's son, Sunday, who was able to answer questions the patient's behalf. Cardiology has been consulted at this time for preprocedural cardiovascular examination for possible right [id number] amputation. 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 A repeat twelve electrocardiogram was done at time of assessment and reveals normal sinus rhythm with inferior Q-waves. The patient comes from hospice care at home. Past Medical History Past medical history reviewed. No other significant than mentioned above. Past Surgical History Left [id number] amputation Hernia repair Family History: Diabetes mellitus G8 MOTHER G8 FATHER Hypertension G8 MOTHER G8 FATHER Allergies: Coded Allergies: NO KNOWN ALLERGIES (Unverified , 05/30/25) Home Meds Active Scripts Hydrocodone-Acetaminophen (Hydrocodone/Acetaminophen 5-325 mg) 1 Tab Tab, 1 TAB PO TIDP PRN for 7 Days, #21 TAB 0 Refills Prov:ELIAS BOB MD 06/09/25 Cephalexin (KEFLEX CAPSULE) 250 Mg Cp, 2 CAP PO BID for 14 Days, #56 CAP 0 Refills Prov:ELIAS BOB MD 06/09/25 Current Medications Current Medications Medications (Trade) Dose Ordered Sig/Philip Route PRN Reason Start Time Stop Time Status Last Admin Vancomycin HCl 100 ml @ 100 mls/hr DAILY@1800 IV 07/06/25 18:00 07/06/25 18:27 Insulin Glargine (Lantus) 15 units HS SC 07/06/25 22:00 07/06/25 22:21 Review of Systems Constitutional: Generalized weakness Ears, Nose, & Throat: No symptom reported Eyes: No symptom reported Neurological: No symptoms reported Pulmonary/Respiratory: No symptoms reported Cardiovascular: No symptom reported Gastrointestinal: No symptom reported Genitourinary: No symptom reported Musculoskeletal: No symptom reported Skin: No symptom reported Psychiatric: No symptom reported Endocrine: No symptom reported Hematologic/Lymphatic: No symptom reported Vital Signs Vital Signs Date Time Temp Pulse Resp B/P (MAP) Pulse Ox O2 Delivery O2 Flow Rate FiO2 07/06/25 21:56 90 107/65 07/06/25 20:46 97.6 16 94 97.6 07/06/25 20:00 Room Air* 0 21 Physical Exam GENERAL: Alert and oriented x 3. No acute distress. EYES: PERRL, EOMI. Anicteric. HENT: Moist mucous membranes. LUNGS: Clear to auscultation bilaterally. CARDIOVASCULAR: Regular rate and rhythm. ABDOMEN: Soft, non-tender and non-distended. EXTREMITIES: No edema. NEUROLOGIC: No focal neurological deficits. SKIN: Warm, dry. Labs/Diagnostic Data Labs Test 07/06/25 23:30 07/06/25 22:14 07/06/25 17:00 07/06/25 05:08 Range/Units POC Glucose 352 H 70-106 mg/dl Vancomycin Level Trough 14.3 H 5-10 ug/mL Sodium Level 133 L 136-145 mmol/L Potassium Level 4.1 3.5-5.1 mmol/L Chloride Level 103 98-107 mmol/L Carbon Dioxide Level 19 L 20-31 mmol/L Anion Gap 11 5-15 Blood Urea Nitrogen 14 9-23 mg/dL Creatinine 0.88 0.700-1.30 mg/dL Glomerular Filtration Rate Calc 93 >90 mL/min BUN/Creatinine Ratio 15.9 10.0-20.0 Serum Glucose 323 H 74-106 mg/dL Calcium Level 8.1 L 8.7-10.4 mg/dL Phosphorus Level 2.3 L 2.4-5.1 mg/dL Magnesium Level 2.3 1.6-2.6 mg/dL Total Bilirubin 0.6 0.2-1.0 mg/dL Aspartate Amino Transferase (AST) 17 13-40 U/L Alanine Aminotransferase (ALT) 12 7-40 U/L Alkaline Phosphatase 227 H 46-116 U/L Total Protein 7.1 5.7-8.2 g/dL Albumin 3.0 L 3.2-4.8 g/dL Test 07/05/25 02:52 07/05/25 02:48 07/04/25 04:30 07/03/25 04:30 Range/Units Blood Gas Specimen Type Arterial Blood Gas Sample Site Right brachial Blood Gas Patient Temperature 37.0 Arterial Blood Date Drawn [id number] Arterial Blood pH 7.471 H 7.350-7.450 Arterial Blood Partial Pressure CO2 27.5 L 35.0-48.0 mmHg Arterial Blood Partial Pressure O2 128.5 H 83.0-108.0 mmHg Arterial Blood HCO3 19.6 L 21.0-28.0 mmol/L Arterial Blood Oxygen Saturation 98.4 H 94.0-98.0 % Arterial Blood Base Excess -3.0 L -2.0-3.0 mmol/L Arterial Blood Oxyhemoglobin 97.6 94.0-98.0 % Arterial Blood Carboxyhemoglobin 0.3 L 0.5-1.5 % Arterial Blood Methemoglobin 0.5 0.0-1.5 % Vicente Test N/a Blood Gas Total Hemoglobin 10.80 L 13.5-17.5 g/dL Blood Gas Modality Nasal cannula Blood Gas Spontaneous Rate 16 FiO2 % 28.0 White Blood Count 11.4 H 4.4-10.8 10^3/uL Red Blood Count 3.05 L 4.5-5.90 10^6/uL Hemoglobin 10.1 L 13.5-17.5 g/dL Hematocrit 29.7 #L 41.0-53.0 % Mean Corpuscular Volume 97.5 80.0-100.0 fL Mean Corpuscular Hemoglobin 33.1 H 28.0-32.0 pg Mean Corpuscular Hemoglobin Concent 33.9 32.0-36.0 g/dL Red Cell Distribution Width 13.9 11.8-14.3 % Platelet Count 553 H 140-450 10^3/uL Mean Platelet Volume 8.1 6.9-10.8 fL Neutrophils (%) (Auto) 58.1 37.0-80.0 % Lymphocytes (%) (Auto) 27.0 10.0-50.0 % Monocytes (%) (Auto) 11.8 0.0-12.0 % Eosinophils (%) (Auto) 1.9 0.0-7.0 % Basophils (%) (Auto) 1.2 0.0-2.0 % Neutrophils # (Auto) 6.6 1.6-8.6 10 ^3/uL Lymphocytes # (Auto) 3.1 0.4-5.4 10 ^3/uL Monocytes # (Auto) 1.3 0-1.3 10 ^3/uL Eosinophils # (Auto) 0.2 0-0.8 10 ^3/uL Basophils # (Auto) 0.1 0-0.2 10 ^3/uL Nucleated Red Blood Cells 0.1 % Estimated GFR () 115 mL/min Estimated GFR (Non- 95 mL/min Triglycerides Level 117 < 150 mg/dL Test 07/02/25 05:06 07/01/25 09:29 06/30/25 06:02 06/28/25 17:05 Range/Units Random Vancomycin Level 18.4 H 5-10 ug/mL Blood Gas Pressure Support 8 Blood Gas PEEP or CPAP 5.0 Blood Gas Set Respiration Rate 18.0 Blood Gas Tidal Volume 400.0 Thyroid Stimulating Hormone (TSH) 2.16 0.55-4.78 uIU/mL Test 06/28/25 05:00 06/27/25 10:00 06/25/25 05:15 06/22/25 13:21 Range/Units Vitamin B12 Level 1816 H 211-911 pg/mL Folic Acid 8.18 >5.38 ng/mL Free Thyroxine (T4) Calculated 0.94 0.89-1.76 ng/dL SARS-CoV-2 Antigen (Rapid) Positive *A NEGATIVE Differential Total Cells Counted 100.0 100 Neutrophils % (Manual) 84 H 37.0-80.0 Band Neutrophils % (Manual) 3 Lymphocytes % (Manual) 9 L 10.0-50.0 Monocytes % (Manual) 3 0-12 Eosinophils % (Manual) 1 0-7 Basophils % (Manual) 0 0.0-2.0 Metamyelocytes % (manual) 0 Myelocytes % (Manual) 0 Promyelocytes % (Manual) 0 Blast Cells % (Manual) 0 Reactive Lymphocytes 0 Platelet Estimate Adequate Erythrocyte Sedimentation Rate 107 H 0-20 mm/hr C-Reactive Protein High Sensitivity 16.11 H <1.0 mg/dL Test 06/22/25 07:56 06/21/25 13:35 06/19/25 07:36 06/18/25 16:25 Range/Units Blood Gas Critical Value Read Back Yes Blood Gas Notified Whom vicky Serrato np Blood Gas Notified Time [id number] Blood Gas Notified By hiro Butler rrt Beta-Hydroxybutyric Acid 0.292 < 0.4 mmol/L Influenza Type A Antigen Negative Negative Influenza Type B Antigen Negative Negative Troponin I High Sensitivity 55 *H </=54 ng/L Test 06/18/25 15:25 06/18/25 13:37 06/18/25 13:09 Range/Units Lactic Acid Level 2.3 *H 0.4-2.0 mmol/L Urine Hyaline Casts Few 0 - 2 /lpf Hypochromasia (manual) Slight Anisocytosis (manual) Slight Macrocytosis Marked Microbiology Date/Time Source Procedure Growth Status 06/22/25 00:10 Nose MRSA Screen - Final Complete 06/18/25 15:04 Sputum Gram Stain - Final Complete 06/18/25 15:04 Respiratory Culture - Final Klebsiella pneumoniae Leclercia adecarboxylata Enterobacter cloacae Citrobacter farmeri Complete 06/18/25 13:09 Blood Blood Culture - Final NO GROWTH AFTER 5 DAYS OF INCUBATION. Complete Assessment Preprocedural cardiovascular examination. Acute hypoxic respiratory failure in the setting of COVID pneumonia. Right foot osteomyelitis. Sepsis. Diabetic ketoacidosis. Acute kidney injury, resolved. Dementia. Plan/Recommendation I agree with your ongoing assessment and care of plan. Patient has been seen by Natasha Mccloud NP on my behalf. We have discussed the plan with the patient. Transthoracic echocardiogram reveals EF of 65%. Revised Cardiac Risk Index (Collin criteria): ?2 points (5% risk of major cardiac event). The patient has no cardiac contraindications to proceed with the procedure. There is no underlying history of congestive heart failure, coronary artery disease, equivalent of cardiac symptoms, and has a poor functional capacity. Per cardiology standpoint, patient is at an -risk for moderate-risk surgery. There is no additional cardiac work-up indicated prior to surgery. Additional plan as per the hospital course. Plan discussed with: Patient NYHA Physical activity limitations: NA Date of Service: Jul 06, 2025 Billing Provider: ROSE DURAN MD Cardiology Common Codes: [id number] INP/OBS CARE (High) Cardiology Consultation Codes: [id number] CONSULT <45MIN ROSE DURAN MD Jul 06, 2025 23:45
[2025-07-07] VITALS (9 sets, daily range): BP systolic 94–147; BP diastolic 45–81; PULSE 79–95; RESP 10–18; TEMP 97.5–98.3; O2SAT 94–100
[2025-07-07 07:38] LABS: INR 1.21 (0.9-1.15); Partial Thromboplastin Time 27.5 SEC (24.5-34.5); Prothrombin Time 12.6 sec (9.3-11.8)
[2025-07-07 07:43] LABS: Hematocrit 31.3 % (41.0-53.0); Hemoglobin 10.7 g/dL (13.5-17.5); Mean Corpuscular Hemoglobin 33.6 pg (28.0-32.0); Mean Corpuscular Volume 98.3 fL (80.0-100.0); Nucleated Red Blood Cells % 0.1 %
[2025-07-07 07:45] LABS: Alanine Aminotransferase 12 U/L (7-40); Albumin 3.2 g/dL (3.2-4.8); Anion Gap 13 (5-15); BUN/Creatinine Ratio 19.2 (10.0-20.0); Bilirubin, Total 0.6 mg/dL (0.2-1.0); Blood Urea Nitrogen 19 mg/dL (9-23); Chloride 104 mmol/L (98-107); Glucose 104 mg/dL (74-106); Magnesium 2.2 mg/dL (1.6-2.6); Sodium 136 mmol/L (136-145); Total Protein 7.4 g/dL (5.7-8.2)
[2025-07-07 07:47] LABS: Alkaline Phosphatase 213 U/L (46-116); Calcium 8.7 mg/dL (8.7-10.4); Carbon Dioxide 19 mmol/L (20-31); Potassium 3.4 mmol/L (3.5-5.1)
--- NOTE | 2025-07-07 09:25 | DVHPN2 ---
Subjective Patient more alert today. Denies any symptoms. Reviewed: Care Plan, H&P, Labs, Medications, Previous Orders, Radiology Changes from previous H/P or p: No Changes General: Per HPI Eyes: No Pain, No Vision change, No Conjunctivae inflammation, No Eyelid inflammation, No Other, No Redness ENT: No Ear pain, No Ear discharge, No Nose pain, No Nose discharge, No Nose congestion, No Mouth pain, No Mouth swelling, No Throat pain, No Throat swelling, No Other Cardiovascular: No Chest Pain, No Palpitations, No Orthopnea, No Paroxysmal Noc. Dyspnea, No Edema, No Lt Headedness; Other (Hypotension) Respiratory: No Cough, No Dry, No SOB with excertion, No Wheezing, No Hemoptysis, No Pleuritic Pain, No Sputum, No Other Gastrointestinal: No Nausea, No Vomiting, No Abdominal Pain, No Diarrhea, No Constipation, No Melena, No Hematochezia, No Other Genitourinary: No Dysuria, No Frequency, No Incontinence, No Hematuria, No Retention, No Other Musculoskeletal: other (BKA (LLE), RLE toe amputation); No neck pain, No shoulder pain, No arm pain, No back pain, No hand pain, No leg pain, No foot pain Skin: No Rash, No Lesions, No Jaundice, No Bruising, No Other Objective Vitals Vital Signs Date Time Temp Pulse Resp B/P (MAP) Pulse Ox O2 Delivery O2 Flow Rate FiO2 07/07/25 09:00 97.9 91 18 126/80 (95) 98 97.9 07/06/25 20:00 Room Air* 0 21 Intake/Output Intake and Output 07/07/25 07:00 Intake Total 1353.5 ml Output Total 1450 ml Balance -96.5 ml Intake Oral 100 ml IV Total 1253.5 ml Output Urine Total 1450 ml # Bowel Movements 2 General Appearance: Alert, Cooperative, No acute distress, Other (Encephalopathic) HEENT: Atraumatic, PERRLA Lungs: Clear to auscultation, Other (Decreased air entry bilaterally) Cardiovascular: Regular rate, Normal S1, Normal S2 Abdomen: Normal bowel sounds, Soft, No tenderness, No hepatospenomegaly Genitourinary: No Apparent Abnormalities (Garcia catheter) Musculoskeletal: Other (Unable to assess) Extremities: Normal pulses, Other (Right foot with worsening gangrene) Neuro: Other (Unable to assess) Skin: Wounds (See nurse notes and pictures), Other (Right foot gangrene. Status post surgery) Psych/Mental Status: Other (Unable to assess) Medications Current Medications Medications Dose Ordered Sig/Philip Route Start Time Stop Time Status Last Admin Dose Admin Dextrose 50 ml UD PRN IV 06/18/25 17:00 Cancel Vancomycin HCl 0 ml @ 0 mls/hr UD IV 06/18/25 20:30 Ondansetron HCl 4 mg Q4HP PRN IV 06/18/25 20:30 Nitroglycerin 0.4 mg Q5MINP PRN SL 06/18/25 20:30 Morphine Sulfate 2 mg Q30M PRN IV 06/18/25 20:30 Diagnostic Test (Pha) 1 strip Q6HR 06/21/25 12:00 07/07/25 05:34 1 STRIP Dextrose 50 ml UD PRN IV 06/21/25 11:15 Pantoprazole Sodium 40 mg BID IV 06/21/25 22:00 07/06/25 21:53 40 MG Cefepime HCl 50 ml @ 12.5 mls/hr Q8HR IV 06/26/25 22:00 07/07/25 05:34 12.5 MLS/HR Amino Acids 0 ml @ 0 mls/hr PER PHARMACY IV 07/02/25 10:00 Morphine Sulfate 1 mg Q4HP PRN IV 07/02/25 10:00 07/04/25 23:25 1 MG Amino Acids/ Electrolytes/ Dextrose 1,000 ml @ 41 mls/hr DAILY@2200 IV 07/02/25 22:00 07/06/25 21:56 41 MLS/HR Enteral Nutritional Formula 240 ml BIDWM PO 07/04/25 18:00 07/06/25 18:26 240 ML Insulin Human Regular FOLLOW SLIDING SCALE Q6HR SC 07/04/25 18:00 07/07/25 00:07 20 UNITS Magnesium Sulfate/ Dextrose 100 ml @ 100 mls/hr Q1HR IV 07/05/25 05:00 07/05/25 06:59 Cancel Metoprolol Tartrate 25 mg BID PO 07/05/25 10:00 07/06/25 21:56 25 MG Acetaminophen/ Hydrocodone Bitart 1 tab Q4HPRN PRN PO 07/05/25 12:45 07/06/25 12:38 1 TAB Acetaminophen 650 mg Q6HP PRN PO 07/05/25 14:45 Vancomycin HCl 100 ml @ 100 mls/hr DAILY@1800 IV 07/06/25 18:00 07/06/25 18:27 100 MLS/HR Insulin Glargine 15 units HS SC 07/06/25 22:00 07/06/25 22:21 15 UNITS Potassium Chloride/Sodium Chloride 1,000 ml @ 75 mls/hr [id number] IV 07/07/25 08:45 UNV Laboratory Results Laboratory Tests 07/07/25 04:54 Chemistry Test 07/07/25 04:54 Albumin 3.2 g/dL (3.2-4.8) Calcium Level 8.7 mg/dL (8.7-10.4) Magnesium Level 2.2 mg/dL (1.6-2.6) Phosphorus Level 2.3 mg/dL (2.4-5.1) L Total Protein 7.4 g/dL (5.7-8.2) Coagulation Test 07/07/25 04:54 Prothrombin Time 12.6 sec (9.3-11.8) H Prothrombin Time INR 1.21 (0.9-1.15) H Activated Partial Thromboplast Time 27.5 SEC (24.5-34.5) LFT Test 07/07/25 04:54 Alanine Aminotransferase (ALT) 12 U/L (7-40) Alkaline Phosphatase 213 U/L (46-116) H Aspartate Amino Transferase (AST) 17 U/L (13-40) Total Bilirubin 0.6 mg/dL (0.2-1.0) Urinalysis Test 06/18/25 13:37 07/06/25 23:30 Urine Hyaline Casts Few /lpf (0 - 2) Urine Color Light-yellow (Yellow) Urine Clarity Clear (Clear) Urine pH 6.5 (5.0-9.0) Urine Specific [place] 1.014 (1.001-1.035) Urine Protein 1+ (Negative) H Urine Ketones Negative (Negative) Urine Blood 2+ /uL (Negative) H Urine Nitrite Negative (Negative) Urine Bilirubin Negative (Negative) Urine Urobilinogen Normal mg/dL (Negative) Urine Leukocyte Esterase Negative /uL (Negative) Urine RBC 17 /hpf (0 - 3) Urine Microscopic WBC 6 /HPF (0-3) H Urine Squamous Epithelial Cells Few /hpf (<5) Urine Bacteria None seen /hpf (None Seen) Urine Mucus Few (None Seen) Urine Yeast (Budding) Few /hpf (None Seen) Urine Glucose 4+ mg/dL (Normal) H Microbiology Microbiology Date/Time Source Procedure Growth Status 06/22/25 00:10 Nose MRSA Screen - Final Complete 06/18/25 15:04 Sputum Gram Stain - Final Complete 06/18/25 15:04 Respiratory Culture - Final Klebsiella pneumoniae Leclercia adecarboxylata Enterobacter cloacae Citrobacter farmeri Complete 06/18/25 13:09 Blood Blood Culture - Final NO GROWTH AFTER 5 DAYS OF INCUBATION. Complete Labs and/or images reviewed: Labs reviewed by me, Image(s) reviewed by me Assessment/Plan Assessment/Plan Impression: -septic shock -right foot osteomyelitis -diabetic ketoacidosis -acute hypoxic respiratory failure -diabetes mellitus -primary hypertension -acute kidney injury -decubitus ulcer -acute delirium -community-acquired pneumonia, Gram-positive and Gram-negative etiology -COVID-19 Plan: Events: Cardiology clearance for surgery. Patient is more alert today. Cleared from medical standpoint. Blood sugars improved. Potassium replacement ordered. Patient made NPO for tentative surgery today. Discussed case with surgeon yesterday. -regular insulin sliding scale -swallow evaluation -continue Clinimix at this time -Protonix 40 mg IV b.i.d. -continue vancomycin, cefepime -repeat labs in a.m. Total time spent with patient discussing and formulating plan of care: 35 minutes. This medical document was created using an electronic medical record system with [employer] dictation system. Although this document has been carefully reviewed, there may still be some phonetic and typographical errors. These areas are purely typographical due to imperfections of the software programs, and do not reflect any compromise in the patient's medical care. Plan discussed with: Patient, Other (RN) My Orders Orders - MAINE VELAZCO EPIC ANESTHESIA ANALYST Procedure Category Date Status Time * Surgical Consult CONS 07/06/25 Transmitted Insulin Lantus PHA 07/06/25 In Process (Glargine) (Lantus) 22:00 Clinimix Per Pharmacy FEDE 07/06/25 In Process 11:24 * Cardiology Consult CONS 07/06/25 Transmitted 23:22 Npo (Nothing By DIET 07/07/25 Transmitted Mouth) Diet Breakfast Sod Chl 0.9%/ Kcl PHA 07/07/25 Logged 20meq 08:45 Date of Service: Jul 07, 2025 Billing Provider: MAINE VELAZCO NP Common Visit Codes: [id number] INP/OBS CARE(HIGH) MAINE VELAZCO NP Jul 07, 2025 09:25
[2025-07-07] MEDS: SOD CHL 0.9%/ KCL 20MEQ 1,000 ML IV SCH (10:02)
--- NOTE | 2025-07-07 10:37 | ECG ---
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
[2025-07-07] MEDS: BUPIVACAINE HCL 0.25% P/F 10 ML VIAL ONE (13:17)
[2025-07-07] MEDS: LIDOCAINE 1% HCL (LOCAL ANESTH.) INJ 20ML MDV ONE (13:17)
[2025-07-07] MEDS ORDERED: GLYCOPYRROLATE 0.2 MG/ML 1ML VIAL ONE (13:24)
[2025-07-07] MEDS ORDERED: BUPIVACAINE/DEXTROSE MPF 0.75% 2 ML AMP IT ONE (13:24)
[2025-07-07] MEDS ORDERED: PROPOFOL 10 MG/ML 20 ML IV ONE (13:24)
[2025-07-07] MEDS ORDERED: KETOROLAC TROMETH 30 MG/ML 1ML VIAL ONE (13:24)
[2025-07-07] MEDS ORDERED: ONDANSETRON HCL 4 MG/2 ML VIAL ONE (13:24)
[2025-07-07] MEDS ORDERED: SODIUM CHLORIDE LOCK 10 ML ONE (13:45)
[2025-07-07] MEDS ORDERED: PHENYLEPHRINE HCL 10 MG/ML VL ONE (13:45)
--- NOTE | 2025-07-07 14:29 | DVHOP2 ---
Operative Report - 2 Report Details Date: 07/07/25 Preop Diagnosis: Right foot gangrene Postop Diagnosis: Same Surgeon: Jayy Rios MD Anesthesiologist: Spinal Anesthesia: Regional Consent: The patient was informed of the risks and benefits of the procedure. These include but are not limited to complications of anesthesia, postoperative infection, incomplete relief of symptoms, recurrence of symptoms, damage to blood vessels, nerves and tendons, deep venous thrombosis, pulmonary embolism and possible need for repeat surgery in the future. Estimated Blood Loss: 100 mL Indications for Surgery: Right foot gangrene Name of Procedure Performed Right below-knee amputation Procedure Details Procedure Details: Patient was identified in the preop hold area. He was consented in preop by myself he was brought back to the operating room placed on operative table in supine position after adequate induction of anesthesia antibiotics and time-out the right leg was prepped and draped normal surgical fashion. A standard below- knee amputation incision was made starting at 10 cm below the tibial tuberosity. Bovie cauterization was used to get down to the tibia the flaps were created with a an incisions laterally and medially the anterior compartment was divided the anterior tibial artery was encountered and ligated with 0 Vicryl sutures the tibia was then completely skeletonized and fibula was also completely skeletonized. The tibia was then dissected back a proximally 2 cm from the skin incision the bone saw was used to divide the tibia the fibula was then divided proximally 1 cm higher than the tibia. The posterior compartment was then dissected off of the tibia and fibula and the specimen was sent off for pathology the wound was then irrigated out all bleeding was controlled with hemostasis with Bovie cauterization followed by suture ligation as needed. The closure was begun by taken of the Achilles tendon and sewing it to the pretibial fascia with interrupted 2-0 Vicryl sutures the dermal layer was reapproximated with 2-0 Vicryl sutures. The skin was then closed with the cristhian. Sterile dressing was applied including Kerlix and Jose wrap. Sponge and needle counts were correct at the end of the procedure patient tolerated procedure well. Was taken to the recovery room in stable condition. Specimen: Right foot Condition Good Disposition Still a Patient JAYY RIOS Jr., MD Jul 07, 2025 14:29
[2025-07-07] MEDS ORDERED: ONDANSETRON HCL 4 MG/2 ML VIAL IV PRN (15:00)
[2025-07-07] MEDS ORDERED: HYDROmorphone HCL 2 MG/ML VL/or syr IV PRN (15:00)
[2025-07-07] MEDS ORDERED: fentaNYL CITRATE 100 MCG/2 ML VL IV PRN (15:00)
[2025-07-07] MEDS ORDERED: NALOXONE HCL 0.4 MG/ML VIAL IV PRN (15:00)
[2025-07-07] MEDS ORDERED: FLUMAZENIL 0.1 MG/ML INJ 10ML MDV IV PRN (15:00)
[2025-07-07] MEDS ORDERED: hydrALAZINE HCL 20 MG/ML VL IV PRN (15:00)
[2025-07-07] MEDS: POTASSIUM PHOSPHATE 26.4 MEQ in SODIUM CHL 0.9% 100 ML IV ONE (16:20)
--- NOTE | 2025-07-07 21:30 | DVHPN2 ---
Progress Note - Dictate Date Seen: Jul 07, 2025 Medical Necessity Reason Pt with a Central, PICC or Fol: No Subjective Patient was seen and evaluated in follow up. Patient underwent right below-knee amputation by Dr. Rios and tolerated procedure well. Patient complains of pain at the amputation site. WBC 13.2, K 3.4, CO2 19. Telemetry reviewed. vital signs Vital Sign Date Time Temp Pulse Resp B/P (MAP) Pulse Ox O2 Delivery O2 Flow Rate FiO2 07/07/25 17:00 97.8 92 17 94/62 (73) 98 97.8 07/07/25 14:32 Mask 7.0 98 Total Intake and Output 07/06/25 07/06/25 07/07/25 15:00 23:00 07:00 Intake Total 50 ml 872 ml 431.5 ml Output Total 850 ml 600 ml Balance 50 ml 22 ml -168.5 ml medications Current Medications Medications Dose Ordered Sig/Philip Route Start Time Stop Time Status Last Admin Dose Admin Dextrose 50 ml UD PRN IV 06/18/25 17:00 Cancel Vancomycin HCl 0 ml @ 0 mls/hr UD IV 06/18/25 20:30 Ondansetron HCl 4 mg Q4HP PRN IV 06/18/25 20:30 Nitroglycerin 0.4 mg Q5MINP PRN SL 06/18/25 20:30 Morphine Sulfate 2 mg Q30M PRN IV 06/18/25 20:30 Diagnostic Test (Pha) 1 strip Q6HR 06/21/25 12:00 07/07/25 12:00 1 STRIP Dextrose 50 ml UD PRN IV 06/21/25 11:15 Pantoprazole Sodium 40 mg BID IV 06/21/25 22:00 07/07/25 09:48 40 MG Cefepime HCl 50 ml @ 12.5 mls/hr Q8HR IV 06/26/25 22:00 07/07/25 16:20 12.5 MLS/HR Amino Acids 0 ml @ 0 mls/hr PER PHARMACY IV 07/02/25 10:00 Morphine Sulfate 1 mg Q4HP PRN IV 07/02/25 10:00 07/04/25 23:25 1 MG Amino Acids/ Electrolytes/ Dextrose 1,000 ml @ 41 mls/hr DAILY@2200 IV 07/02/25 22:00 07/06/25 21:56 41 MLS/HR Enteral Nutritional Formula 240 ml BIDWM PO 07/04/25 18:00 07/07/25 18:28 240 ML Insulin Human Regular FOLLOW SLIDING SCALE Q6HR SC 07/04/25 18:00 07/07/25 18:30 2 UNITS Magnesium Sulfate/ Dextrose 100 ml @ 100 mls/hr Q1HR IV 07/05/25 05:00 07/05/25 06:59 Cancel Metoprolol Tartrate 25 mg BID PO 07/05/25 10:00 07/06/25 21:56 25 MG Acetaminophen/ Hydrocodone Bitart 1 tab Q4HPRN PRN PO 07/05/25 12:45 07/06/25 12:38 1 TAB Acetaminophen 650 mg Q6HP PRN PO 07/05/25 14:45 Vancomycin HCl 100 ml @ 100 mls/hr DAILY@1800 IV 07/06/25 18:00 07/06/25 18:27 100 MLS/HR Insulin Glargine 15 units HS SC 07/06/25 22:00 07/06/25 22:21 15 UNITS Potassium Chloride/Sodium Chloride 1,000 ml @ 75 mls/hr [id number] IV 07/07/25 08:45 07/07/25 10:02 75 MLS/HR objective GENERAL: Alert and oriented x 3. No acute distress. EYES: PERRL, EOMI. Anicteric. HENT: Moist mucous membranes. LUNGS: Clear to auscultation bilaterally. CARDIOVASCULAR: Regular rate and rhythm. ABDOMEN: Soft, non-tender and non-distended. EXTREMITIES: No edema. NEUROLOGIC: No focal neurological deficits. SKIN: Warm, dry. laboratory and microbiology Laboratory Tests 07/07/25 04:54 Test 07/07/25 04:54 Range/Units Serum Glucose 104 # 74-106 mg/dL Problem List Preprocedural cardiovascular examination. Acute hypoxic respiratory failure in the setting of COVID pneumonia. Right foot osteomyelitis. Sepsis. Diabetic ketoacidosis. Acute kidney injury, resolved. Dementia. Assessment/Plan Continued all current supportive medical care. Morphine and Kechi for pain management. IV antibiotics as ordered. GI prophylactics. Metoprolol. Nitro SL. Additional plan as per the hospital course. Dietary Evaluation Review Comments: 1. glucerna 50/hr, along with Propofol 257kcal provide 100% Protein needs and 128% energy needs. Adding Ryder BID will promote wound healing. 2. Continure TF protocol, 3. Reassess when pt is extubated 4. Advance to CCHO-60 diet when pt passes LOAN TELLER eval. Expected Outcomes/Goals: gradually healed wound, Avoid catabolic syndrome Plan discussed with: Patient ROSE DURAN MD Jul 07, 2025 19:41
--- NOTE | 2025-07-07 23:17 | DVHPN2 ---
Progress Note - Dictate Date Seen: Jul 07, 2025 Medical Necessity Reason Pt with a Central, PICC or Fol: No Subjective Mr. Nava is a 70 years old gentleman with a history of hypertension, diabetes, status post left BKA, right toe amputation, dementia, he was brought to the [facility] on 06/18/2025 with a chief company of general weakness, hypoglycemia, in the ER, the patient was confirmed to have altered mental status, and respiratory distress (RN note 06/18/25 13:39: The patient was oriented x1, with increased worked of breathing and RR: 29) and the patient was intubated in the emergency room In the hospital, the patient was also found to have DKA, pneumoniae, right foot cellulitis, COVID-19. With appropriate treatment, the patient has been stabilized, off sedation since 06/29/2025 however the patient is not waking up as anticipated I have seen and examined the patient, I have discussed with her nurses. He is awake, she talks a little bit, but he only oriented to himself, he follow verbal commands if he understands On , pupils equal round and reactive ABG, 06/18/2025: Metabolic acidosis, 06/19/2025: Compensated metabolic acidosis, 06/22/2025: Compensated metabolic acidosis Blood culture, 06/18/2025: Negative Respiratory culture, 06/18/2025: Klebsiella pneumoniae etc SARS-COV-2 Ag, 06/19/2025: Positive, 06/27/2025: Positive Urinalysis, 06/18/2025: No UTI WBC/HB/PLT/MCV, 06/18/2025: 26.7/14.6/568/113.4, 06/23/2025: 31.6/10.5/346/94.4, 06/28/2025: 16.5/10/403/95 Glucose, 06/18/2025: > , 600, > 600, 352 Beta hydroxybutyric acid, 06/18/2025: >4.5 Anion gap, 06/18/2025: 26, 21, 16 TBI/AST/ALT/AP, 06/28/2025: 0.6/52/18/530 Vitamin B12, 06/25/2025: 1816 Folic acid, 06/28/25: 8.18 TSH, 06/28/2025: 2.16 FT4, 06/28/2025: 0.94 Chest x-ray, 06/18/2025: No acute cardiopulmonary disease Chest x-ray, 06/18/2025: 1. Endotracheal tube 1.8 cm above the alexis. 2. Right internal jugular line either at the cavoatrial junction or within the right atrium. 3. Enteric tube below the left diaphragm in the stomach 4. No change in the cardiopulmonary findings compared film performed earlier today at 1:48 p.m. Chest x-ray, 06/28/2025: Lines and tubes in satisfactory position. Improving bilateral lung aeration CT, right foot, 06/21/2025: 1. Soft tissue emphysema centered around the residual 1st metatarsal stump. 2. Maintain elevated concern for osteomyelitis. 3. In regards to the clinical question, no definitive measurable absces CT head, 06/29/2025: No acute intracranial abnormality vital signs Vital Sign Date Time Temp Pulse Resp B/P (MAP) Pulse Ox O2 Delivery O2 Flow Rate FiO2 07/07/25 21:44 80 121/81 07/07/25 21:00 97.5 16 100 97.5 07/07/25 20:00 Room Air* 0 21 Total Intake and Output 07/06/25 07/06/25 07/07/25 15:00 23:00 07:00 Intake Total 50 ml 872 ml 431.5 ml Output Total 850 ml 600 ml Balance 50 ml 22 ml -168.5 ml medications Current Medications Medications Dose Ordered Sig/Philip Route Start Time Stop Time Status Last Admin Dose Admin Dextrose 50 ml UD PRN IV 06/18/25 17:00 Cancel Vancomycin HCl 0 ml @ 0 mls/hr UD IV 06/18/25 20:30 Ondansetron HCl 4 mg Q4HP PRN IV 06/18/25 20:30 Nitroglycerin 0.4 mg Q5MINP PRN SL 06/18/25 20:30 Morphine Sulfate 2 mg Q30M PRN IV 06/18/25 20:30 Diagnostic Test (Pha) 1 strip Q6HR 06/21/25 12:00 07/07/25 12:00 1 STRIP Dextrose 50 ml UD PRN IV 06/21/25 11:15 Pantoprazole Sodium 40 mg BID IV 06/21/25 22:00 07/07/25 21:52 40 MG Cefepime HCl 50 ml @ 12.5 mls/hr Q8HR IV 06/26/25 22:00 07/07/25 22:05 12.5 MLS/HR Amino Acids 0 ml @ 0 mls/hr PER PHARMACY IV 07/02/25 10:00 Morphine Sulfate 1 mg Q4HP PRN IV 07/02/25 10:00 07/04/25 23:25 1 MG Amino Acids/ Electrolytes/ Dextrose 1,000 ml @ 41 mls/hr DAILY@2200 IV 07/02/25 22:00 07/07/25 21:44 41 MLS/HR Enteral Nutritional Formula 240 ml BIDWM PO 07/04/25 18:00 07/07/25 18:28 240 ML Insulin Human Regular FOLLOW SLIDING SCALE Q6HR SC 07/04/25 18:00 07/07/25 18:30 2 UNITS Magnesium Sulfate/ Dextrose 100 ml @ 100 mls/hr Q1HR IV 07/05/25 05:00 07/05/25 06:59 Cancel Metoprolol Tartrate 25 mg BID PO 07/05/25 10:00 07/07/25 21:44 25 MG Acetaminophen/ Hydrocodone Bitart 1 tab Q4HPRN PRN PO 07/05/25 12:45 07/06/25 12:38 1 TAB Acetaminophen 650 mg Q6HP PRN PO 07/05/25 14:45 Vancomycin HCl 100 ml @ 100 mls/hr DAILY@1800 IV 07/06/25 18:00 07/06/25 18:27 100 MLS/HR Insulin Glargine 15 units HS SC 07/06/25 22:00 07/07/25 22:25 15 UNITS Potassium Chloride/Sodium Chloride 1,000 ml @ 75 mls/hr [id number] IV 07/07/25 08:45 07/07/25 22:11 75 MLS/HR objective The patient is well-nourished and well-developed with no distress. Status Post left BKA , right toe amputation, signs of gangrene in the right foot MENTAL STATUS: Subjective CRANIAL NERVES: Pupils are equal, round and reactive.There are corneal reflexes and conjugated eye movement, sensorimotor examined in bilateral trigeminal distribution is unremarkable. No signs of facial weakness. SENSATION: Okay to light touch and light painful stimuli MOTOR: Normal tone in the upper and lower extremity. Normal muscle bulk. No fasciculations. He moves the arms and legs REFLEXES: Deep tendon reflexes are symmetrical. No pathological reflexes. CEREBELLAR/COORDINATION: Deferred GAIT/STATION: deferred. laboratory and microbiology Laboratory Tests 07/07/25 04:54 Test 07/07/25 04:54 Range/Units Serum Glucose 104 # 74-106 mg/dL Problem List Altered mental status, improving Metabolic encephalopathy secondary to DKA, sepsis Rule out other acute central nervous sleep disorder, less likely Anisocoria, resolved, with uncertain clinical significance Diabetic ketoacidosis Sepsis Metabolic acidosis Left foot cellulitis Left foot osteomyelitis Acute respiratory failure COVID-19 Reported dementia Assessment/Plan Monitoring Supportive treatment ICU care Stabilize vitals Respiratory support Oxygen Glucose control IV antibiotics Wound Care GI prophylaxis More recommendation per clinical course He has liked to have poor prognosis for over recovery, I recommend the family to reconsider code status This medical document was created using an electronic medical record system with [employer] dictation system. Although this document has been carefully reviewed, there may still be some phonetic and typographical errors. These areas are purely typographical due to imperfections of the software programs, and do not reflect any compromise in the patient's medical care. Prognosis poor Dietary Evaluation Review Comments: 1. glucerna 50/hr, along with Propofol 257kcal provide 100% Protein needs and 128% energy needs. Adding Ryder BID will promote wound healing. 2. Continure TF protocol, 3. Reassess when pt is extubated 4. Advance to CCHO-60 diet when pt passes FAMILY SERVICE CASEWORKER eval. Expected Outcomes/Goals: gradually healed wound, Avoid catabolic syndrome Plan discussed with: Other WELLINGTON KELLY MD Jul 07, 2025 23:17
--- NOTE | 2025-07-07 23:45 | DVHPN2 ---
[facility] DOS: 07/07/2025 Patient seen and examined at bedside. Breathing comfortably on room air. Overnight events reviewed HPI: Patient is a 70-year old gentleman with PMHx of dementia, hypertension and diabetes who presented to ED on 06/18/25 with c/o altered mental status and generalized weakness. When EMS arrived on the scene, patient's blood sugar was high, hypotensive with blood pressure 76/40, increased work of breathing, and was given IV fluid normal saline, O2 saturation at 96% en route to our facility ED Was seen in the emergency room, where he was intubated for airway protection and placed on mechanical ventilation. Initial settings AC volume control RR 20, tidal volume 400, PEEP 5, FiO2 100%. Patient was also found to have a markedly elevated blood sugar consistent with DKA and he was started on IV insulin drip. ABG pH 7.05, pCO2 30, pO2 440. Pt also tested positive for COVID-19. Initial ED workup: WBC 26.7, platelets 568, sodium 126, potassium 5.5, BUN 43, creatinine 2 five eight, GFR 34, glucose 852, anion gap 26, acetone > 4.500, calcium 10.2 trending down to 8.4, troponin 31. Chest x-ray revealed no evidence of acute cardiopulmonary process. Patient was admitted for further care. Pulmonary consultation was requested for evaluation and management of acute hypoxic respiratory failure, pneumonia and COVID-19 Past Medical History DM, hypertension and dementia. Past Surgical History BKA (LLE), RLE toe amputation. Medications: Reviewed. Allergies: No known drug allergies. Family History No family history of premature CAD. No family history of lung disorders. Social History: Nonsmoker. No alcohol or illicit drug use. Reviewed: Care Plan, H&P, Labs, Medications, Previous Orders, Radiology Changes from previous H/P or p: No Changes General: Per HPI Eyes: No Pain, No Vision change, No Conjunctivae inflammation, No Eyelid inflammation, No Other, No Redness ENT: No Ear pain, No Ear discharge, No Nose pain, No Nose discharge, No Nose congestion, No Mouth pain, No Mouth swelling, No Throat pain, No Throat swelling, No Other Cardiovascular: No Chest Pain, No Palpitations, No Orthopnea, No Paroxysmal Noc. Dyspnea, No Edema, No Lt Headedness; Other (Hypotension) Respiratory: No Cough, No Dry, No SOB with excertion, No Wheezing, No Hemoptysis, No Pleuritic Pain, No Sputum, No Other Gastrointestinal: No Nausea, No Vomiting, No Abdominal Pain, No Diarrhea, No Constipation, No Melena, No Hematochezia, No Other Genitourinary: No Dysuria, No Frequency, No Incontinence, No Hematuria, No Retention, No Other Musculoskeletal: other (BKA (LLE), RLE toe amputation); No neck pain, No shoulder pain, No arm pain, No back pain, No hand pain, No leg pain, No foot pain Skin: No Rash, No Lesions, No Jaundice, No Bruising, No Other Objective Vitals Vital Signs Date Time Temp Pulse Resp B/P (MAP) Pulse Ox O2 Delivery O2 Flow Rate FiO2 07/07/25 21:44 80 121/81 07/07/25 21:00 97.5 16 100 97.5 07/07/25 20:00 Room Air* 0 21 Intake/Output Intake and Output 07/07/25 07:00 Intake Total 1353.5 ml Output Total 1450 ml Balance -96.5 ml Intake Oral 100 ml IV Total 1253.5 ml Output Urine Total 1450 ml # Bowel Movements 2 General Appearance: Alert, Cooperative, No acute distress, Other (Encephalopathic) HEENT: Atraumatic, PERRLA Lungs: Clear to auscultation, Other (Decreased air entry bilaterally) Cardiovascular: Regular rate, Normal S1, Normal S2 Abdomen: Normal bowel sounds, Soft, No tenderness, No hepatospenomegaly Genitourinary: No Apparent Abnormalities (Garcia catheter) Musculoskeletal: Other (Unable to assess) Extremities: Normal pulses, Other (Right foot with worsening gangrene) Neuro: Other (Unable to assess) Skin: Wounds (See nurse notes and pictures), Other (Right foot gangrene. Status post surgery) Psych/Mental Status: Other (Unable to assess) Medications Current Medications Medications Dose Ordered Sig/Philip Route Start Time Stop Time Status Last Admin Dose Admin Dextrose 50 ml UD PRN IV 06/18/25 17:00 Cancel Vancomycin HCl 0 ml @ 0 mls/hr UD IV 06/18/25 20:30 Ondansetron HCl 4 mg Q4HP PRN IV 06/18/25 20:30 Nitroglycerin 0.4 mg Q5MINP PRN SL 06/18/25 20:30 Morphine Sulfate 2 mg Q30M PRN IV 06/18/25 20:30 Diagnostic Test (Pha) 1 strip Q6HR 06/21/25 12:00 07/07/25 12:00 1 STRIP Dextrose 50 ml UD PRN IV 06/21/25 11:15 Pantoprazole Sodium 40 mg BID IV 06/21/25 22:00 07/07/25 21:52 40 MG Cefepime HCl 50 ml @ 12.5 mls/hr Q8HR IV 06/26/25 22:00 07/07/25 22:05 12.5 MLS/HR Amino Acids 0 ml @ 0 mls/hr PER PHARMACY IV 07/02/25 10:00 Morphine Sulfate 1 mg Q4HP PRN IV 07/02/25 10:00 07/04/25 23:25 1 MG Amino Acids/ Electrolytes/ Dextrose 1,000 ml @ 41 mls/hr DAILY@2200 IV 07/02/25 22:00 07/07/25 21:44 41 MLS/HR Enteral Nutritional Formula 240 ml BIDWM PO 07/04/25 18:00 07/07/25 18:28 240 ML Insulin Human Regular FOLLOW SLIDING SCALE Q6HR SC 07/04/25 18:00 07/07/25 18:30 2 UNITS Magnesium Sulfate/ Dextrose 100 ml @ 100 mls/hr Q1HR IV 07/05/25 05:00 07/05/25 06:59 Cancel Metoprolol Tartrate 25 mg BID PO 07/05/25 10:00 07/07/25 21:44 25 MG Acetaminophen/ Hydrocodone Bitart 1 tab Q4HPRN PRN PO 07/05/25 12:45 07/06/25 12:38 1 TAB Acetaminophen 650 mg Q6HP PRN PO 07/05/25 14:45 Vancomycin HCl 100 ml @ 100 mls/hr DAILY@1800 IV 07/06/25 18:00 07/06/25 18:27 100 MLS/HR Insulin Glargine 15 units HS SC 07/06/25 22:00 07/07/25 22:25 15 UNITS Potassium Chloride/Sodium Chloride 1,000 ml @ 75 mls/hr [id number] IV 07/07/25 08:45 07/07/25 22:11 75 MLS/HR Laboratory Results Laboratory Tests 07/07/25 04:54 Chemistry Test 07/07/25 04:54 Albumin 3.2 g/dL (3.2-4.8) Calcium Level 8.7 mg/dL (8.7-10.4) Magnesium Level 2.2 mg/dL (1.6-2.6) Phosphorus Level 2.3 mg/dL (2.4-5.1) L Total Protein 7.4 g/dL (5.7-8.2) Coagulation Test 07/07/25 04:54 Prothrombin Time 12.6 sec (9.3-11.8) H Prothrombin Time INR 1.21 (0.9-1.15) H Activated Partial Thromboplast Time 27.5 SEC (24.5-34.5) LFT Test 07/07/25 04:54 Alanine Aminotransferase (ALT) 12 U/L (7-40) Alkaline Phosphatase 213 U/L (46-116) H Aspartate Amino Transferase (AST) 17 U/L (13-40) Total Bilirubin 0.6 mg/dL (0.2-1.0) Urinalysis Test 06/18/25 13:37 07/06/25 23:30 Urine Hyaline Casts Few /lpf (0 - 2) Urine Color Light-yellow (Yellow) Urine Clarity Clear (Clear) Urine pH 6.5 (5.0-9.0) Urine Specific [place] 1.014 (1.001-1.035) Urine Protein 1+ (Negative) H Urine Ketones Negative (Negative) Urine Blood 2+ /uL (Negative) H Urine Nitrite Negative (Negative) Urine Bilirubin Negative (Negative) Urine Urobilinogen Normal mg/dL (Negative) Urine Leukocyte Esterase Negative /uL (Negative) Urine RBC 17 /hpf (0 - 3) Urine Microscopic WBC 6 /HPF (0-3) H Urine Squamous Epithelial Cells Few /hpf (<5) Urine Bacteria None seen /hpf (None Seen) Urine Mucus Few (None Seen) Urine Yeast (Budding) Few /hpf (None Seen) Urine Glucose 4+ mg/dL (Normal) H Microbiology Microbiology Date/Time Source Procedure Growth Status 06/22/25 00:10 Nose MRSA Screen - Final Complete 06/18/25 15:04 Sputum Gram Stain - Final Complete 06/18/25 15:04 Respiratory Culture - Final Klebsiella pneumoniae Leclercia adecarboxylata Enterobacter cloacae Citrobacter farmeri Complete 06/18/25 13:09 Blood Blood Culture - Final NO GROWTH AFTER 5 DAYS OF INCUBATION. Complete Assessment/Plan Assessment/Plan Impression: Acute hypoxic respiratory failure Acute metabolic encephalopathy Pneumonia, likely GNR COVID-19 infection Right foot osteomyelitis Diabetic ketoacidosis Events: Remains on room air Supplemental oxygen PRN No acute overnight events. Chest x-ray reveals no acute opacities. Cardiology recs appreciated. Vascular Surgery recs appreciated. Continue supportive care Continue antibiotics Head of bed elevation Aspiration precautions Wound care Clinimix for nutritional support Accu-Cheks, ISS. Protonix BID for GI ppx. Monitor hemoglobin - currently 10.7 g/dL Monitor renal function. Monitor electrolytes. Supplement as necessary. K, phos supplementation Labs and imaging reviewed. Rest of plan as noted below. Plan: Supplemental oxygen PRN Titrate to keep O2 sats above 92%. Continue antibiotics Follow up cultures Hemodynamic monitoring. Supportive care. Monitor hemoglobin Transfuse if less than 7.0 g/dL. Pain control Avoid oversedation Monitor renal function. Monitor electrolytes. Supplement as necessary. Monitor ins and outs. Clinimix for nutritional support Wound care DVT prophylaxis. Prognosis: Guarded given patient's multiple co-morbidities. Rest of plan per hospitalist and other consultants. Thank you, BREANNA Serrato, for allowing me to participate in this patient's care. Further recommendations will depend on the patient's clinical course. Please do not hesitate to contact me if you have any questions or concerns. This medical document was created using an electronic medical record system with [employer] dictation system. Although these documentations are being carefully reviewed, there may still be some phonetic and typographical changes. The errors are purely typographical, due to imperfection on the software program, and do not reflect any compromise in the patient's medical care. Plan discussed with: Other (GINNA Paez) Date of Service: Jul 07, 2025 Billing Provider: RENAE FLORES MD Common Visit Codes: [id number] INP/OBS CARE(HIGH) RENAE FLORES MD Jul 07, 2025 23:45
[2025-07-08] VITALS (8 sets, daily range): BP systolic 113–141; BP diastolic 45–80; PULSE 72–91; RESP 17–18; TEMP 97.5–98.7; O2SAT 98–100
[2025-07-08 07:34] LABS: Alanine Aminotransferase 12 U/L (7-40); Albumin 3.0 g/dL (3.2-4.8); Alkaline Phosphatase 187 U/L (46-116); Anion Gap 11 (5-15); BUN/Creatinine Ratio 25.0 (10.0-20.0); Blood Urea Nitrogen 26 mg/dL (9-23); Calcium 8.5 mg/dL (8.7-10.4); Carbon Dioxide 17 mmol/L (20-31); Chloride 107 mmol/L (98-107); Glucose 228 mg/dL (74-106); Magnesium 1.9 mg/dL (1.6-2.6); Potassium 4.3 mmol/L (3.5-5.1); Sodium 135 mmol/L (136-145); Total Protein 6.8 g/dL (5.7-8.2)
[2025-07-08 07:35] LABS: Bilirubin, Total 0.4 mg/dL (0.2-1.0)
[2025-07-08 07:36] LABS: Mean Corpuscular Volume 97.0 fL (80.0-100.0); Nucleated Red Blood Cells % 0.0 %
[2025-07-08 07:43] LABS: Hematocrit 27.8 % (41.0-53.0); Hemoglobin 9.4 g/dL (13.5-17.5); Mean Corpuscular Hemoglobin 32.8 pg (28.0-32.0)
[2025-07-08] MEDS: VANCOMYCIN 750MG KIT 100 ML IV SCH (09:45)
--- NOTE | 2025-07-08 09:45 | DVHPN2 ---
Subjective Patient more alert today. Denies any symptoms. Reviewed: Care Plan, H&P, Labs, Medications, Previous Orders, Radiology Changes from previous H/P or p: No Changes General: Per HPI Eyes: No Pain, No Vision change, No Conjunctivae inflammation, No Eyelid inflammation, No Other, No Redness ENT: No Ear pain, No Ear discharge, No Nose pain, No Nose discharge, No Nose congestion, No Mouth pain, No Mouth swelling, No Throat pain, No Throat swelling, No Other Cardiovascular: No Chest Pain, No Palpitations, No Orthopnea, No Paroxysmal Noc. Dyspnea, No Edema, No Lt Headedness; Other (Hypotension) Respiratory: No Cough, No Dry, No SOB with excertion, No Wheezing, No Hemoptysis, No Pleuritic Pain, No Sputum, No Other Gastrointestinal: No Nausea, No Vomiting, No Abdominal Pain, No Diarrhea, No Constipation, No Melena, No Hematochezia, No Other Genitourinary: No Dysuria, No Frequency, No Incontinence, No Hematuria, No Retention, No Other Musculoskeletal: other (BKA (LLE), RLE toe amputation); No neck pain, No shoulder pain, No arm pain, No back pain, No hand pain, No leg pain, No foot pain Skin: No Rash, No Lesions, No Jaundice, No Bruising, No Other Objective Vitals Vital Signs Date Time Temp Pulse Resp B/P (MAP) Pulse Ox O2 Delivery O2 Flow Rate FiO2 07/08/25 05:00 98.4 72 17 122/70 (87) 99 98.4 07/07/25 20:00 Room Air* 0 21 Intake/Output Intake and Output 07/08/25 07:00 Intake Total 62.5 ml Output Total 1850 ml Balance -1787.5 ml Intake Oral 0 ml IV Total 62.5 ml Output Urine Total 1850 ml # Bowel Movements 1 General Appearance: Alert, Cooperative, No acute distress, Other (Encephalopathic) HEENT: Atraumatic, PERRLA Lungs: Clear to auscultation, Other (Decreased air entry bilaterally) Cardiovascular: Regular rate, Normal S1, Normal S2 Abdomen: Normal bowel sounds, Soft, No tenderness, No hepatospenomegaly Genitourinary: No Apparent Abnormalities (Garcia catheter) Musculoskeletal: Other (Unable to assess) Extremities: Normal pulses, Other (To right lower extremity dry and intact) Neuro: Normal speech, Cranial nerves 3-12 NL, Other Skin: Wounds (See nurse notes and pictures), Other (Right foot gangrene. Status post surgery) Psych/Mental Status: Other (Unable to assess) Medications Current Medications Medications Dose Ordered Sig/Philip Route Start Time Stop Time Status Last Admin Dose Admin Dextrose 50 ml UD PRN IV 06/18/25 17:00 Cancel Vancomycin HCl 0 ml @ 0 mls/hr UD IV 06/18/25 20:30 Ondansetron HCl 4 mg Q4HP PRN IV 06/18/25 20:30 Nitroglycerin 0.4 mg Q5MINP PRN SL 06/18/25 20:30 Morphine Sulfate 2 mg Q30M PRN IV 06/18/25 20:30 Diagnostic Test (Pha) 1 strip Q6HR 06/21/25 12:00 07/08/25 05:42 1 STRIP Dextrose 50 ml UD PRN IV 06/21/25 11:15 Pantoprazole Sodium 40 mg BID IV 06/21/25 22:00 07/07/25 21:52 40 MG Cefepime HCl 50 ml @ 12.5 mls/hr Q8HR IV 06/26/25 22:00 07/08/25 05:42 12.5 MLS/HR Amino Acids 0 ml @ 0 mls/hr PER PHARMACY IV 07/02/25 10:00 Morphine Sulfate 1 mg Q4HP PRN IV 07/02/25 10:00 07/04/25 23:25 1 MG Amino Acids/ Electrolytes/ Dextrose 1,000 ml @ 41 mls/hr DAILY@2200 IV 07/02/25 22:00 07/07/25 21:44 41 MLS/HR Enteral Nutritional Formula 240 ml BIDWM PO 07/04/25 18:00 07/07/25 18:28 240 ML Insulin Human Regular FOLLOW SLIDING SCALE Q6HR SC 07/04/25 18:00 07/08/25 05:47 8 UNITS Magnesium Sulfate/ Dextrose 100 ml @ 100 mls/hr Q1HR IV 07/05/25 05:00 07/05/25 06:59 Cancel Metoprolol Tartrate 25 mg BID PO 07/05/25 10:00 07/07/25 21:44 25 MG Acetaminophen/ Hydrocodone Bitart 1 tab Q4HPRN PRN PO 07/05/25 12:45 07/06/25 12:38 1 TAB Acetaminophen 650 mg Q6HP PRN PO 07/05/25 14:45 Insulin Glargine 15 units HS SC 07/06/25 22:00 07/07/25 22:25 15 UNITS Vancomycin HCl 100 ml @ 100 mls/hr DAILY@1100 IV 07/08/25 11:00 Laboratory Results Laboratory Tests 07/08/25 06:50 Chemistry Test 07/08/25 06:50 Albumin 3.0 g/dL (3.2-4.8) L Calcium Level 8.5 mg/dL (8.7-10.4) L Magnesium Level 1.9 mg/dL (1.6-2.6) Phosphorus Level 2.7 mg/dL (2.4-5.1) Total Protein 6.8 g/dL (5.7-8.2) LFT Test 07/08/25 06:50 Alanine Aminotransferase (ALT) 12 U/L (7-40) Alkaline Phosphatase 187 U/L (46-116) H Aspartate Amino Transferase (AST) 23 U/L (13-40) Total Bilirubin 0.4 mg/dL (0.2-1.0) Urinalysis Test 06/18/25 13:37 07/06/25 23:30 Urine Hyaline Casts Few /lpf (0 - 2) Urine Color Light-yellow (Yellow) Urine Clarity Clear (Clear) Urine pH 6.5 (5.0-9.0) Urine Specific [place] 1.014 (1.001-1.035) Urine Protein 1+ (Negative) H Urine Ketones Negative (Negative) Urine Blood 2+ /uL (Negative) H Urine Nitrite Negative (Negative) Urine Bilirubin Negative (Negative) Urine Urobilinogen Normal mg/dL (Negative) Urine Leukocyte Esterase Negative /uL (Negative) Urine RBC 17 /hpf (0 - 3) Urine Microscopic WBC 6 /HPF (0-3) H Urine Squamous Epithelial Cells Few /hpf (<5) Urine Bacteria None seen /hpf (None Seen) Urine Mucus Few (None Seen) Urine Yeast (Budding) Few /hpf (None Seen) Urine Glucose 4+ mg/dL (Normal) H Microbiology Microbiology Date/Time Source Procedure Growth Status 06/22/25 00:10 Nose MRSA Screen - Final Complete 06/18/25 15:04 Sputum Gram Stain - Final Complete 06/18/25 15:04 Respiratory Culture - Final Klebsiella pneumoniae Leclercia adecarboxylata Enterobacter cloacae Citrobacter farmeri Complete 06/18/25 13:09 Blood Blood Culture - Final NO GROWTH AFTER 5 DAYS OF INCUBATION. Complete Labs and/or images reviewed: Labs reviewed by me, Image(s) reviewed by me Assessment/Plan Assessment/Plan Impression: -septic shock -right foot osteomyelitis -diabetic ketoacidosis -acute hypoxic respiratory failure -diabetes mellitus -primary hypertension -acute kidney injury -decubitus ulcer -acute delirium -community-acquired pneumonia, Gram-positive and Gram-negative etiology -COVID-19 Plan: Events: Status post right BKA. Dressing dry and intact. Blood sugars better controlled. -DC central line, PICC line placement -regular insulin sliding scale -continue Clinimix at this time -Protonix 40 mg IV b.i.d. -continue vancomycin, cefepime -repeat labs in a.m. Total time spent with patient discussing and formulating plan of care: 35 minutes. This medical document was created using an electronic medical record system with [employer] dictation system. Although this document has been carefully reviewed, there may still be some phonetic and typographical errors. These areas are purely typographical due to imperfections of the software programs, and do not reflect any compromise in the patient's medical care. Plan discussed with: Patient, Other (RN) My Orders Orders - MAINE VELAZCO NP Procedure Category Date Status Time Clinimix Per Pharmacy [facility] 07/07/25 In Process 12:20 Clinimix Per Pharmacy [facility] 07/07/25 In Process 22:00 Communication Order ORDERS 07/08/25 Verified 09:35 * Picc Line Consult CONS 07/08/25 Verified 09:35 Date of Service: Jul 08, 2025 Billing Provider: MAINE VELAZCO NP Common Visit Codes: [id number] INP/OBS CARE(HIGH) MAINE VELAZCO NP Jul 08, 2025 09:45
[2025-07-08] MEDS: LIDOCAINE 1% (LOCAL ANESTH.) PF 5ml SDV ID ONE (18:35)
[2025-07-08] MEDS: SODIUM CHLOR 0.9% PF (SALINE LOCK) 10ML VIAL/SYR IV SCH (21:40)
--- NOTE | 2025-07-08 23:27 | DVHPN2 ---
[facility] DOS: 07/08/2025 Patient seen and examined at bedside. Breathing comfortably on room air. Overnight events reviewed HPI: Patient is a 70-year old gentleman with PMHx of dementia, hypertension and diabetes who presented to ED on 06/18/25 with c/o altered mental status and generalized weakness. When EMS arrived on the scene, patient's blood sugar was high, hypotensive with blood pressure 76/40, increased work of breathing, and was given IV fluid normal saline, O2 saturation at 96% en route to our facility ED Was seen in the emergency room, where he was intubated for airway protection and placed on mechanical ventilation. Initial settings AC volume control RR 20, tidal volume 400, PEEP 5, FiO2 100%. Patient was also found to have a markedly elevated blood sugar consistent with DKA and he was started on IV insulin drip. ABG pH 7.05, pCO2 30, pO2 440. Pt also tested positive for COVID-19. Initial ED workup: WBC 26.7, platelets 568, sodium 126, potassium 5.5, BUN 43, creatinine 2 five eight, GFR 34, glucose 852, anion gap 26, acetone > 4.500, calcium 10.2 trending down to 8.4, troponin 31. Chest x-ray revealed no evidence of acute cardiopulmonary process. Patient was admitted for further care. Pulmonary consultation was requested for evaluation and management of acute hypoxic respiratory failure, pneumonia and COVID-19 Past Medical History DM, hypertension and dementia. Past Surgical History BKA (LLE), RLE toe amputation. Medications: Reviewed. Allergies: No known drug allergies. Family History No family history of premature CAD. No family history of lung disorders. Social History: Nonsmoker. No alcohol or illicit drug use. Reviewed: Care Plan, H&P, Labs, Medications, Previous Orders, Radiology Changes from previous H/P or p: No Changes General: Per HPI Eyes: No Pain, No Vision change, No Conjunctivae inflammation, No Eyelid inflammation, No Other, No Redness ENT: No Ear pain, No Ear discharge, No Nose pain, No Nose discharge, No Nose congestion, No Mouth pain, No Mouth swelling, No Throat pain, No Throat swelling, No Other Cardiovascular: No Chest Pain, No Palpitations, No Orthopnea, No Paroxysmal Noc. Dyspnea, No Edema, No Lt Headedness; Other (Hypotension) Respiratory: No Cough, No Dry, No SOB with excertion, No Wheezing, No Hemoptysis, No Pleuritic Pain, No Sputum, No Other Gastrointestinal: No Nausea, No Vomiting, No Abdominal Pain, No Diarrhea, No Constipation, No Melena, No Hematochezia, No Other Genitourinary: No Dysuria, No Frequency, No Incontinence, No Hematuria, No Retention, No Other Musculoskeletal: other (BKA (LLE), RLE toe amputation); No neck pain, No shoulder pain, No arm pain, No back pain, No hand pain, No leg pain, No foot pain Skin: No Rash, No Lesions, No Jaundice, No Bruising, No Other Objective Vitals Vital Signs Date Time Temp Pulse Resp B/P (MAP) Pulse Ox O2 Delivery O2 Flow Rate FiO2 07/08/25 21:31 84 141/78 07/08/25 21:00 97.6 18 100 97.6 07/08/25 20:00 Room Air* 0 21 Intake/Output Intake and Output 07/08/25 07:00 Intake Total 62.5 ml Output Total 1850 ml Balance -1787.5 ml Intake Oral 0 ml IV Total 62.5 ml Output Urine Total 1850 ml # Bowel Movements 1 General Appearance: Alert, Cooperative, No acute distress, Other (Encephalopathic) HEENT: Atraumatic, PERRLA Lungs: Clear to auscultation, Other (Decreased air entry bilaterally) Cardiovascular: Regular rate, Normal S1, Normal S2 Abdomen: Normal bowel sounds, Soft, No tenderness, No hepatospenomegaly Genitourinary: No Apparent Abnormalities (Garcia catheter) Musculoskeletal: Other (Unable to assess) Extremities: Normal pulses, Other (To right lower extremity dry and intact) Neuro: Normal speech, Cranial nerves 3-12 NL, Other Skin: Wounds (See nurse notes and pictures), Other (Right foot gangrene. Status post surgery) Psych/Mental Status: Other (Unable to assess) Medications Current Medications Medications Dose Ordered Sig/Philip Route Start Time Stop Time Status Last Admin Dose Admin Dextrose 50 ml UD PRN IV 06/18/25 17:00 Cancel Vancomycin HCl 0 ml @ 0 mls/hr UD IV 06/18/25 20:30 Ondansetron HCl 4 mg Q4HP PRN IV 06/18/25 20:30 Nitroglycerin 0.4 mg Q5MINP PRN SL 06/18/25 20:30 Morphine Sulfate 2 mg Q30M PRN IV 06/18/25 20:30 Diagnostic Test (Pha) 1 strip Q6HR 06/21/25 12:00 07/08/25 17:48 1 STRIP Dextrose 50 ml UD PRN IV 06/21/25 11:15 Pantoprazole Sodium 40 mg BID IV 06/21/25 22:00 07/08/25 21:31 40 MG Cefepime HCl 50 ml @ 12.5 mls/hr Q8HR IV 06/26/25 22:00 07/08/25 21:41 12.5 MLS/HR Amino Acids 0 ml @ 0 mls/hr PER PHARMACY IV 07/02/25 10:00 Morphine Sulfate 1 mg Q4HP PRN IV 07/02/25 10:00 07/04/25 23:25 1 MG Amino Acids/ Electrolytes/ Dextrose 1,000 ml @ 41 mls/hr DAILY@2200 IV 07/02/25 22:00 07/08/25 21:19 41 MLS/HR Enteral Nutritional Formula 240 ml BIDWM PO 07/04/25 18:00 07/08/25 18:22 240 ML Insulin Human Regular FOLLOW SLIDING SCALE Q6HR SC 07/04/25 18:00 07/08/25 17:47 16 UNITS Magnesium Sulfate/ Dextrose 100 ml @ 100 mls/hr Q1HR IV 07/05/25 05:00 07/05/25 06:59 Cancel Metoprolol Tartrate 25 mg BID PO 07/05/25 10:00 07/08/25 21:31 25 MG Acetaminophen/ Hydrocodone Bitart 1 tab Q4HPRN PRN PO 07/05/25 12:45 07/08/25 11:49 1 TAB Acetaminophen 650 mg Q6HP PRN PO 07/05/25 14:45 Insulin Glargine 15 units HS SC 07/06/25 22:00 07/08/25 21:40 15 UNITS Vancomycin HCl 100 ml @ 100 mls/hr DAILY@1100 IV 07/08/25 11:00 07/08/25 09:45 100 MLS/HR Sodium Chloride 10 ml QSHIFT@10,22 IV 07/08/25 22:00 07/08/25 21:40 10 ML Laboratory Results Laboratory Tests 07/08/25 06:50 Chemistry Test 07/08/25 06:50 Albumin 3.0 g/dL (3.2-4.8) L Calcium Level 8.5 mg/dL (8.7-10.4) L Magnesium Level 1.9 mg/dL (1.6-2.6) Phosphorus Level 2.7 mg/dL (2.4-5.1) Total Protein 6.8 g/dL (5.7-8.2) LFT Test 07/08/25 06:50 Alanine Aminotransferase (ALT) 12 U/L (7-40) Alkaline Phosphatase 187 U/L (46-116) H Aspartate Amino Transferase (AST) 23 U/L (13-40) Total Bilirubin 0.4 mg/dL (0.2-1.0) Urinalysis Test 06/18/25 13:37 07/06/25 23:30 Urine Hyaline Casts Few /lpf (0 - 2) Urine Color Light-yellow (Yellow) Urine Clarity Clear (Clear) Urine pH 6.5 (5.0-9.0) Urine Specific [place] 1.014 (1.001-1.035) Urine Protein 1+ (Negative) H Urine Ketones Negative (Negative) Urine Blood 2+ /uL (Negative) H Urine Nitrite Negative (Negative) Urine Bilirubin Negative (Negative) Urine Urobilinogen Normal mg/dL (Negative) Urine Leukocyte Esterase Negative /uL (Negative) Urine RBC 17 /hpf (0 - 3) Urine Microscopic WBC 6 /HPF (0-3) H Urine Squamous Epithelial Cells Few /hpf (<5) Urine Bacteria None seen /hpf (None Seen) Urine Mucus Few (None Seen) Urine Yeast (Budding) Few /hpf (None Seen) Urine Glucose 4+ mg/dL (Normal) H Microbiology Microbiology Date/Time Source Procedure Growth Status 06/22/25 00:10 Nose MRSA Screen - Final Complete 06/18/25 15:04 Sputum Gram Stain - Final Complete 06/18/25 15:04 Respiratory Culture - Final Klebsiella pneumoniae Leclercia adecarboxylata Enterobacter cloacae Citrobacter farmeri Complete 06/18/25 13:09 Blood Blood Culture - Final NO GROWTH AFTER 5 DAYS OF INCUBATION. Complete Assessment/Plan Assessment/Plan Impression: Acute hypoxic respiratory failure Acute metabolic encephalopathy Pneumonia, likely GNR COVID-19 infection Right foot osteomyelitis Diabetic ketoacidosis Events: Remains on room air Supplemental oxygen PRN No acute overnight events. S/p PICC line placement. Continue supportive care Continue antibiotics Head of bed elevation Aspiration precautions Wound care Clinimix for nutritional support Accu-Cheks, ISS. Protonix BID for GI ppx. Monitor hemoglobin - trended down to 9.4 g/dL Labs and imaging reviewed. Rest of plan as noted below. Plan: Supplemental oxygen PRN Titrate to keep O2 sats above 92%. Continue antibiotics Follow up cultures Hemodynamic monitoring. Supportive care. Monitor hemoglobin Transfuse if less than 7.0 g/dL. Pain control Avoid oversedation Monitor renal function. Monitor electrolytes. Supplement as necessary. Monitor ins and outs. Clinimix for nutritional support Wound care DVT prophylaxis. Prognosis: Guarded given patient's multiple co-morbidities. Rest of plan per hospitalist and other consultants. Thank you, BREANNA Serrato, for allowing me to participate in this patient's care. Further recommendations will depend on the patient's clinical course. Please do not hesitate to contact me if you have any questions or concerns. This medical document was created using an electronic medical record system with [employer] dictation system. Although these documentations are being carefully reviewed, there may still be some phonetic and typographical changes. The errors are purely typographical, due to imperfection on the software program, and do not reflect any compromise in the patient's medical care. Plan discussed with: Patient, Other (GINNA Griffiths) Date of Service: Jul 08, 2025 Billing Provider: RENAE FLORES MD Common Visit Codes: [id number] INP/OBS CARE(HIGH) RENAE FLORES MD Jul 08, 2025 23:27
--- NOTE | 2025-07-08 23:54 | DVHPN2 ---
Progress Note - Dictate Date Seen: Jul 08, 2025 Medical Necessity Reason Pt with a Central, PICC or Fol: No Subjective Patient was seen and evaluated in follow up. Patient is complaining of right stump pain. WBC 15.4, HGB 9.4, HCT 27.8, BUN 26, CA 8.5. Telemetry reviewed. vital signs Vital Sign Date Time Temp Pulse Resp B/P (MAP) Pulse Ox O2 Delivery O2 Flow Rate FiO2 07/08/25 10:55 77 115/47 07/08/25 09:00 98.3 18 100 98.3 07/07/25 20:00 Room Air* 0 21 Total Intake and Output 07/07/25 07/07/25 07/08/25 15:00 23:00 07:00 Intake Total 62.5 ml 0 ml Output Total 1100 ml 750 ml Balance 62.5 ml -1100 ml -750 ml medications Current Medications Medications Dose Ordered Sig/Philip Route Start Time Stop Time Status Last Admin Dose Admin Dextrose 50 ml UD PRN IV 06/18/25 17:00 Cancel Vancomycin HCl 0 ml @ 0 mls/hr UD IV 06/18/25 20:30 Ondansetron HCl 4 mg Q4HP PRN IV 06/18/25 20:30 Nitroglycerin 0.4 mg Q5MINP PRN SL 06/18/25 20:30 Morphine Sulfate 2 mg Q30M PRN IV 06/18/25 20:30 Diagnostic Test (Pha) 1 strip Q6HR 06/21/25 12:00 07/08/25 11:49 1 STRIP Dextrose 50 ml UD PRN IV 06/21/25 11:15 Pantoprazole Sodium 40 mg BID IV 06/21/25 22:00 07/08/25 09:44 40 MG Cefepime HCl 50 ml @ 12.5 mls/hr Q8HR IV 06/26/25 22:00 07/08/25 05:42 12.5 MLS/HR Amino Acids 0 ml @ 0 mls/hr PER PHARMACY IV 07/02/25 10:00 Morphine Sulfate 1 mg Q4HP PRN IV 07/02/25 10:00 07/04/25 23:25 1 MG Amino Acids/ Electrolytes/ Dextrose 1,000 ml @ 41 mls/hr DAILY@2200 IV 07/02/25 22:00 07/07/25 21:44 41 MLS/HR Enteral Nutritional Formula 240 ml BIDWM PO 07/04/25 18:00 07/08/25 08:00 240 ML Insulin Human Regular FOLLOW SLIDING SCALE Q6HR SC 07/04/25 18:00 07/08/25 11:49 4 UNITS Magnesium Sulfate/ Dextrose 100 ml @ 100 mls/hr Q1HR IV 07/05/25 05:00 07/05/25 06:59 Cancel Metoprolol Tartrate 25 mg BID PO 07/05/25 10:00 07/08/25 09:47 25 MG Acetaminophen/ Hydrocodone Bitart 1 tab Q4HPRN PRN PO 07/05/25 12:45 07/08/25 11:49 1 TAB Acetaminophen 650 mg Q6HP PRN PO 07/05/25 14:45 Insulin Glargine 15 units HS SC 07/06/25 22:00 07/07/25 22:25 15 UNITS Vancomycin HCl 100 ml @ 100 mls/hr DAILY@1100 IV 07/08/25 11:00 07/08/25 09:45 100 MLS/HR objective GENERAL: Alert and oriented x 3. No acute distress. EYES: PERRL, EOMI. Anicteric. HENT: Moist mucous membranes. LUNGS: Clear to auscultation bilaterally. CARDIOVASCULAR: Regular rate and rhythm. ABDOMEN: Soft, non-tender and non-distended. EXTREMITIES: No edema. NEUROLOGIC: No focal neurological deficits. SKIN: Warm, dry. laboratory and microbiology Laboratory Tests 07/08/25 06:50 Test 07/08/25 06:50 Range/Units Serum Glucose 228 #H 74-106 mg/dL Problem List Preprocedural cardiovascular examination. Acute hypoxic respiratory failure in the setting of COVID pneumonia. Right foot osteomyelitis. Sepsis. Diabetic ketoacidosis. Acute kidney injury, resolved. Dementia. Assessment/Plan Continued all current supportive medical care. Morphine and [place]iah for pain management. IV antibiotics as ordered. GI prophylactics. Metoprolol. Nitro SL. Additional plan as per the hospital course. Dietary Evaluation Review Comments: 1. glucerna 50/hr, along with Propofol 257kcal provide 100% Protein needs and 128% energy needs. Adding Ryder BID will promote wound healing. 2. Continure TF protocol, 3. Reassess when pt is extubated 4. [facility] when pt passes AUTO INSPECTION SPECIALIST eval. Expected Outcomes/Goals: gradually healed wound, Avoid catabolic syndrome Plan discussed with: Patient ROSE DURAN MD Jul 08, 2025 12:14
[2025-07-09] VITALS (8 sets, daily range): BP systolic 94–128; BP diastolic 63–77; PULSE 41–84; RESP 12–18; TEMP 97.5–99; O2SAT 97–98
[2025-07-09 05:26] LABS: Alanine Aminotransferase 13 U/L (7-40); Anion Gap 9 (5-15); BUN/Creatinine Ratio 23.2 (10.0-20.0); Blood Urea Nitrogen 23 mg/dL (9-23); Calcium 8.8 mg/dL (8.7-10.4); Chloride 106 mmol/L (98-107); Magnesium 1.9 mg/dL (1.6-2.6); Potassium 3.7 mmol/L (3.5-5.1); Total Protein 7.1 g/dL (5.7-8.2)
[2025-07-09 05:27] LABS: Bilirubin, Total 0.4 mg/dL (0.2-1.0)
[2025-07-09 05:29] LABS: Albumin 3.1 g/dL (3.2-4.8); Alkaline Phosphatase 198 U/L (46-116); Carbon Dioxide 20 mmol/L (20-31); Glucose 196 mg/dL (74-106); Sodium 135 mmol/L (136-145)
--- NOTE | 2025-07-09 10:08 | DVHPN2 ---
Subjective Patient more alert today. Denies any symptoms. Reviewed: Care Plan, H&P, Labs, Medications, Previous Orders, Radiology Changes from previous H/P or p: No Changes General: Per HPI Eyes: No Pain, No Vision change, No Conjunctivae inflammation, No Eyelid inflammation, No Other, No Redness ENT: No Ear pain, No Ear discharge, No Nose pain, No Nose discharge, No Nose congestion, No Mouth pain, No Mouth swelling, No Throat pain, No Throat swelling, No Other Cardiovascular: No Chest Pain, No Palpitations, No Orthopnea, No Paroxysmal Noc. Dyspnea, No Edema, No Lt Headedness; Other (Hypotension) Respiratory: No Cough, No Dry, No SOB with excertion, No Wheezing, No Hemoptysis, No Pleuritic Pain, No Sputum, No Other Gastrointestinal: No Nausea, No Vomiting, No Abdominal Pain, No Diarrhea, No Constipation, No Melena, No Hematochezia, No Other Genitourinary: No Dysuria, No Frequency, No Incontinence, No Hematuria, No Retention, No Other Musculoskeletal: other (BKA (LLE), RLE toe amputation); No neck pain, No shoulder pain, No arm pain, No back pain, No hand pain, No leg pain, No foot pain Skin: No Rash, No Lesions, No Jaundice, No Bruising, No Other Objective Vitals Vital Signs Date Time Temp Pulse Resp B/P (MAP) Pulse Ox O2 Delivery O2 Flow Rate FiO2 07/09/25 05:00 97.6 60 12 128/65 (86) 98 97.6 07/08/25 20:00 Room Air* 0 21 Intake/Output Intake and Output 07/09/25 07:00 Intake Total 1840 ml Output Total 3550 ml Balance -1710 ml Intake Oral 480 ml IV Total 1360 ml Output Urine Total 3550 ml # Bowel Movements 2 General Appearance: Alert, Cooperative, No acute distress, Other (Encephalopathic) HEENT: Atraumatic, PERRLA Lungs: Clear to auscultation, Other (Decreased air entry bilaterally) Cardiovascular: Regular rate, Normal S1, Normal S2 Abdomen: Normal bowel sounds, Soft, No tenderness, No hepatospenomegaly Genitourinary: No Apparent Abnormalities (Garcia catheter) Musculoskeletal: Other (Unable to assess) Extremities: Normal pulses, Other (To right lower extremity dry and intact) Neuro: Normal speech, Cranial nerves 3-12 NL, Other Skin: Wounds (See nurse notes and pictures), Other (Right foot gangrene. Status post surgery) Psych/Mental Status: Other (Unable to assess) Medications Current Medications Medications Dose Ordered Sig/Philip Route Start Time Stop Time Status Last Admin Dose Admin Dextrose 50 ml UD PRN IV 06/18/25 17:00 Cancel Vancomycin HCl 0 ml @ 0 mls/hr UD IV 06/18/25 20:30 Ondansetron HCl 4 mg Q4HP PRN IV 06/18/25 20:30 Nitroglycerin 0.4 mg Q5MINP PRN SL 06/18/25 20:30 Morphine Sulfate 2 mg Q30M PRN IV 06/18/25 20:30 Diagnostic Test (Pha) 1 strip Q6HR 06/21/25 12:00 07/09/25 05:40 1 STRIP Dextrose 50 ml UD PRN IV 06/21/25 11:15 Pantoprazole Sodium 40 mg BID IV 06/21/25 22:00 07/08/25 21:31 40 MG Cefepime HCl 50 ml @ 12.5 mls/hr Q8HR IV 06/26/25 22:00 07/09/25 05:40 12.5 MLS/HR Amino Acids 0 ml @ 0 mls/hr PER PHARMACY IV 07/02/25 10:00 Morphine Sulfate 1 mg Q4HP PRN IV 07/02/25 10:00 07/04/25 23:25 1 MG Amino Acids/ Electrolytes/ Dextrose 1,000 ml @ 41 mls/hr DAILY@2200 IV 07/02/25 22:00 07/08/25 21:19 41 MLS/HR Enteral Nutritional Formula 240 ml BIDWM PO 07/04/25 18:00 07/08/25 18:22 240 ML Insulin Human Regular FOLLOW SLIDING SCALE Q6HR SC 07/04/25 18:00 07/09/25 05:45 8 UNITS Magnesium Sulfate/ Dextrose 100 ml @ 100 mls/hr Q1HR IV 07/05/25 05:00 07/05/25 06:59 Cancel Metoprolol Tartrate 25 mg BID PO 07/05/25 10:00 07/08/25 21:31 25 MG Acetaminophen/ Hydrocodone Bitart 1 tab Q4HPRN PRN PO 07/05/25 12:45 07/08/25 11:49 1 TAB Acetaminophen 650 mg Q6HP PRN PO 07/05/25 14:45 Insulin Glargine 15 units HS SC 07/06/25 22:00 07/08/25 21:40 15 UNITS Vancomycin HCl 100 ml @ 100 mls/hr DAILY@1100 IV 07/08/25 11:00 07/08/25 09:45 100 MLS/HR Sodium Chloride 10 ml QSHIFT@10,22 IV 07/08/25 22:00 07/08/25 21:40 10 ML Laboratory Results Laboratory Tests 07/08/25 06:50 07/09/25 04:47 Chemistry Test 07/09/25 04:47 Albumin 3.1 g/dL (3.2-4.8) L Calcium Level 8.8 mg/dL (8.7-10.4) Magnesium Level 1.9 mg/dL (1.6-2.6) Phosphorus Level 2.1 mg/dL (2.4-5.1) L Total Protein 7.1 g/dL (5.7-8.2) LFT Test 07/09/25 04:47 Alanine Aminotransferase (ALT) 13 U/L (7-40) Alkaline Phosphatase 198 U/L (46-116) H Aspartate Amino Transferase (AST) 29 U/L (13-40) Total Bilirubin 0.4 mg/dL (0.2-1.0) Urinalysis Test 06/18/25 13:37 07/06/25 23:30 Urine Hyaline Casts Few /lpf (0 - 2) Urine Color Light-yellow (Yellow) Urine Clarity Clear (Clear) Urine pH 6.5 (5.0-9.0) Urine Specific [place] 1.014 (1.001-1.035) Urine Protein 1+ (Negative) H Urine Ketones Negative (Negative) Urine Blood 2+ /uL (Negative) H Urine Nitrite Negative (Negative) Urine Bilirubin Negative (Negative) Urine Urobilinogen Normal mg/dL (Negative) Urine Leukocyte Esterase Negative /uL (Negative) Urine RBC 17 /hpf (0 - 3) Urine Microscopic WBC 6 /HPF (0-3) H Urine Squamous Epithelial Cells Few /hpf (<5) Urine Bacteria None seen /hpf (None Seen) Urine Mucus Few (None Seen) Urine Yeast (Budding) Few /hpf (None Seen) Urine Glucose 4+ mg/dL (Normal) H Microbiology Microbiology Date/Time Source Procedure Growth Status 06/22/25 00:10 Nose MRSA Screen - Final Complete 06/18/25 15:04 Sputum Gram Stain - Final Complete 06/18/25 15:04 Respiratory Culture - Final Klebsiella pneumoniae Leclercia adecarboxylata Enterobacter cloacae Citrobacter farmeri Complete 06/18/25 13:09 Blood Blood Culture - Final NO GROWTH AFTER 5 DAYS OF INCUBATION. Complete Labs and/or images reviewed: Labs reviewed by me, Image(s) reviewed by me Assessment/Plan Assessment/Plan Impression: -septic shock -right foot osteomyelitis -diabetic ketoacidosis -acute hypoxic respiratory failure -diabetes mellitus -primary hypertension -acute kidney injury -decubitus ulcer -acute delirium -community-acquired pneumonia, Gram-positive and Gram-negative etiology -COVID-19 Plan: Events: Patient is still with encephalopathy. Improvement with oral intake. Weaned off of Clinimix. -DC central line, PICC line placement -regular insulin sliding scale -Protonix 40 mg IV b.i.d. -continue vancomycin, cefepime -social service consultation for discharge planning to half-way facility. -repeat labs in a.m. Total time spent with patient discussing and formulating plan of care: 35 minutes. This medical document was created using an electronic medical record system with [employer] dictation system. Although this document has been carefully reviewed, there may still be some phonetic and typographical errors. These areas are purely typographical due to imperfections of the software programs, and do not reflect any compromise in the patient's medical care. Plan discussed with: Patient, Other (RN) My Orders Orders - MAINE VELAZCO POWER WASHER Procedure Category Date Status Time Notify Provider NOTICE 07/08/25 Transmitted Malnutrition 10:08 Increase Calorie NOURISH 07/08/25 Transmitted Intake 10:08 Nursing Protocol Picc FEDE 07/08/25 In Process 18:26 Change Dressing Prn FEDE 07/08/25 In Process 18:26 PICC BD 07/08/25 Transmitted 18:26 Sodium Chloride Lock PHA 07/08/25 In Process (Saline Lock Ns) 22:00 Do Not Use Picc For FEDE 07/08/25 In Process Blood Cult 18: May Draw Blood From FEDE 07/08/25 In Process Picc 18:26 Ok To Use Picc FEDE 07/08/25 In Process 18:26 Change Picc Dressing FEDE 07/08/25 In Process Q7 Days 18:26 Complete Blood Count LAB 07/10/25 Verified 05:00 Complete Blood Count LAB 07/11/25 Verified 05:00 Complete Blood Count LAB 07/12/25 Verified 05:00 Glucose Blood PHA 07/09/25 Transmitted (Accu-Chek Comfort 11:30 Mild Sliding Scale PHA 07/09/25 Transmitted 11:30 Dextrose 50% Syringe PHA 07/09/25 Transmitted 10:15 Basic Metabolic Panel LAB 07/10/25 Verified 05:00 Basic Metabolic Panel LAB 07/11/25 Verified 05:00 Basic Metabolic Panel LAB 07/12/25 Verified 05:00 * Photoengraving Machine Operator/Tender CONS 07/09/25 Transmitted Consult Date of Service: Jul 09, 2025 Billing Provider: MAINE VELAZCO NP Common Visit Codes: [id number] INP/OBS CARE(HIGH) MAINE VELAZCO NP Jul 09, 2025 10:08
[2025-07-09] MEDS ORDERED: DEXTROSE (50%) 50ML SYRG IV PRN (10:15)
[2025-07-09] MEDS: ACCU-CHEK COMFORT CURVE STRIP VI SCH (11:52)
[2025-07-09] MEDS: InsuLIN REG 1unit/0.01ml Soln (100units/ml) SC SCH (12:08)
--- NOTE | 2025-07-09 22:47 | DVHPN2 ---
Progress Note - Dictate Date Seen: Jul 09, 2025 Medical Necessity Reason Pt with a Central, PICC or Fol: No Subjective Patient was seen and evaluated in follow up. No overnight events. Patient is complaining of right stump pain. Patient is receiving wound care. GLUC 218. Telemetry reviewed. vital signs Vital Sign Date Time Temp Pulse Resp B/P (MAP) Pulse Ox O2 Delivery O2 Flow Rate FiO2 07/09/25 11:28 95 100/58 07/09/25 09:00 98.2 17 97 98.2 07/08/25 20:00 Room Air* 0 21 Total Intake and Output 07/08/25 07/08/25 07/09/25 15:00 23:00 07:00 Intake Total 260 ml 1530 ml 50 ml Output Total 2000 ml 1550 ml Balance 260 ml -470 ml -1500 ml medications Current Medications Medications Dose Ordered Sig/Philip Route Start Time Stop Time Status Last Admin Dose Admin Dextrose 50 ml UD PRN IV 06/18/25 17:00 Cancel Vancomycin HCl 0 ml @ 0 mls/hr UD IV 06/18/25 20:30 Ondansetron HCl 4 mg Q4HP PRN IV 06/18/25 20:30 Nitroglycerin 0.4 mg Q5MINP PRN SL 06/18/25 20:30 Morphine Sulfate 2 mg Q30M PRN IV 06/18/25 20:30 Pantoprazole Sodium 40 mg BID IV 06/21/25 22:00 07/09/25 11:20 40 MG Cefepime HCl 50 ml @ 12.5 mls/hr Q8HR IV 06/26/25 22:00 07/09/25 05:40 12.5 MLS/HR Morphine Sulfate 1 mg Q4HP PRN IV 07/02/25 10:00 07/04/25 23:25 1 MG Enteral Nutritional Formula 240 ml BIDWM PO 07/04/25 18:00 07/09/25 11:20 240 ML Magnesium Sulfate/ Dextrose 100 ml @ 100 mls/hr Q1HR IV 07/05/25 05:00 07/05/25 06:59 Cancel Metoprolol Tartrate 25 mg BID PO 07/05/25 10:00 07/09/25 11:28 25 MG Acetaminophen/ Hydrocodone Bitart 1 tab Q4HPRN PRN PO 07/05/25 12:45 07/09/25 11:50 1 TAB Acetaminophen 650 mg Q6HP PRN PO 07/05/25 14:45 Insulin Glargine 15 units HS SC 07/06/25 22:00 07/08/25 21:40 15 UNITS Vancomycin HCl 100 ml @ 100 mls/hr DAILY@1100 IV 07/08/25 11:00 07/09/25 11:29 100 MLS/HR Sodium Chloride 10 ml QSHIFT@10,22 IV 07/08/25 22:00 07/09/25 11:52 10 ML Diagnostic Test (Pha) 1 strip ACHS 07/09/25 11:30 07/09/25 11:52 1 STRIP Insulin Human Regular ACHS SC 07/09/25 11:30 Dextrose 50 ml UD PRN IV 07/09/25 10:15 objective GENERAL: Alert and oriented x 3. No acute distress. EYES: PERRL, EOMI. Anicteric. HENT: Moist mucous membranes. LUNGS: Clear to auscultation bilaterally. CARDIOVASCULAR: Regular rate and rhythm. ABDOMEN: Soft, non-tender and non-distended. EXTREMITIES: No edema. NEUROLOGIC: No focal neurological deficits. SKIN: Warm, dry. laboratory and microbiology Laboratory Tests 07/09/25 04:47 07/08/25 06:50 Test 07/09/25 04:47 Range/Units Serum Glucose 196 H 74-106 mg/dL Problem List Preprocedural cardiovascular examination. Acute hypoxic respiratory failure in the setting of COVID pneumonia. Right foot osteomyelitis. Sepsis. Diabetic ketoacidosis. Acute kidney injury, resolved. Dementia. Assessment/Plan Continued all current supportive medical care. Morphine and [place] for pain management. IV antibiotics as ordered. GI prophylactics. Metoprolol. Nitro SL. Additional plan as per the hospital course. Dietary Evaluation Review Comments: 1. glucerna 50/hr, along with Propofol 257kcal provide 100% Protein needs and 128% energy needs. Adding Ryder BID will promote wound healing. 2. Continure TF protocol, 3. Reassess when pt is extubated 4. Advance to [facility]-60 diet when pt passes BOAT CLEANER eval. Expected Outcomes/Goals: gradually healed wound, Avoid catabolic syndrome Plan discussed with: Patient ROSE DURAN MD Jul 09, 2025 12:10
[2025-07-10] VITALS (8 sets, daily range): BP systolic 95–124; BP diastolic 50–83; PULSE 75–95; RESP 14–18; TEMP 97.1–98.4; O2SAT 93–98
[2025-07-10 07:51] LABS: Hematocrit 31.3 % (41.0-53.0); Hemoglobin 10.4 g/dL (13.5-17.5); Mean Corpuscular Hemoglobin 33.2 pg (28.0-32.0); Mean Corpuscular Volume 99.5 fL (80.0-100.0); Nucleated Red Blood Cells % 0.2 %
[2025-07-10 08:05] LABS: Anion Gap 11 (5-15); Chloride 104 mmol/L (98-107); Potassium 3.8 mmol/L (3.5-5.1)
[2025-07-10 08:07] LABS: Calcium 8.8 mg/dL (8.7-10.4)
[2025-07-10 08:10] LABS: Carbon Dioxide 19 mmol/L (20-31); Sodium 134 mmol/L (136-145)
[2025-07-10 08:12] LABS: BUN/Creatinine Ratio 18.6 (10.0-20.0); Blood Urea Nitrogen 19 mg/dL (9-23)
[2025-07-10 08:16] LABS: Glucose 159 mg/dL (74-106)
--- NOTE | 2025-07-10 11:15 | DVHPN2 ---
Subjective same Reviewed: Care Plan, H&P, Labs, Medications, Previous Orders, Radiology Changes from previous H/P or p: No Changes General: Per HPI Objective Vitals Vital Signs Date Time Temp Pulse Resp B/P (MAP) Pulse Ox O2 Delivery O2 Flow Rate FiO2 07/10/25 09:01 84 113/62 07/10/25 09:00 97.7 18 95 97.7 07/09/25 20:00 Room Air* 0 21 Intake/Output Intake and Output 07/10/25 07:00 Intake Total 1040 ml Output Total 1750 ml Balance -710 ml Intake Oral 890 ml IV Total 150 ml Output Urine Total 1750 ml # Bowel Movements 1 General Appearance: Alert, Other (Encephalopathic) HEENT: Atraumatic, Other (right pupil slightly larger than left) Lungs: Clear to auscultation Cardiovascular: Regular rate Abdomen: Normal bowel sounds, Soft, No tenderness Musculoskeletal: Other (bilateral BKA) Medications Current Medications Medications Dose Ordered Sig/Philip Route Start Time Stop Time Status Last Admin Dose Admin Dextrose 50 ml UD PRN IV 06/18/25 17:00 Cancel Vancomycin HCl 0 ml @ 0 mls/hr UD IV 06/18/25 20:30 Ondansetron HCl 4 mg Q4HP PRN IV 06/18/25 20:30 Nitroglycerin 0.4 mg Q5MINP PRN SL 06/18/25 20:30 Morphine Sulfate 2 mg Q30M PRN IV 06/18/25 20:30 Pantoprazole Sodium 40 mg BID IV 06/21/25 22:00 07/10/25 09:01 40 MG Cefepime HCl 50 ml @ 12.5 mls/hr Q8HR IV 06/26/25 22:00 07/10/25 06:05 12.5 MLS/HR Morphine Sulfate 1 mg Q4HP PRN IV 07/02/25 10:00 07/04/25 23:25 1 MG Enteral Nutritional Formula 240 ml BIDWM PO 07/04/25 18:00 07/10/25 08:51 240 ML Magnesium Sulfate/ Dextrose 100 ml @ 100 mls/hr Q1HR IV 07/05/25 05:00 07/05/25 06:59 Cancel Metoprolol Tartrate 25 mg BID PO 07/05/25 10:00 07/10/25 09:01 25 MG Acetaminophen/ Hydrocodone Bitart 1 tab Q4HPRN PRN PO 07/05/25 12:45 07/10/25 09:02 1 TAB Acetaminophen 650 mg Q6HP PRN PO 07/05/25 14:45 Insulin Glargine 15 units HS SC 07/06/25 22:00 07/09/25 22:09 15 UNITS Vancomycin HCl 100 ml @ 100 mls/hr DAILY@1100 IV 07/08/25 11:00 07/09/25 11:29 100 MLS/HR Sodium Chloride 10 ml QSHIFT@10,22 IV 07/08/25 22:00 07/10/25 09:01 10 ML Diagnostic Test (Pha) 1 strip ACHS 07/09/25 11:30 07/10/25 06:12 1 STRIP Insulin Human Regular ACHS SC 07/09/25 11:30 07/10/25 06:07 2 UNITS Dextrose 50 ml UD PRN IV 07/09/25 10:15 Laboratory Results Laboratory Tests 07/10/25 06:42 Chemistry Test 07/10/25 06:42 Calcium Level 8.8 mg/dL (8.7-10.4) HgA1c, TSH Test 07/10/25 06:42 Hemoglobin A1c 9.8 % A1C (<5.7) H Urinalysis Test 06/18/25 13:37 07/06/25 23:30 Urine Hyaline Casts Few /lpf (0 - 2) Urine Color Light-yellow (Yellow) Urine Clarity Clear (Clear) Urine pH 6.5 (5.0-9.0) Urine Specific [place] 1.014 (1.001-1.035) Urine Protein 1+ (Negative) H Urine Ketones Negative (Negative) Urine Blood 2+ /uL (Negative) H Urine Nitrite Negative (Negative) Urine Bilirubin Negative (Negative) Urine Urobilinogen Normal mg/dL (Negative) Urine Leukocyte Esterase Negative /uL (Negative) Urine RBC 17 /hpf (0 - 3) Urine Microscopic WBC 6 /HPF (0-3) H Urine Squamous Epithelial Cells Few /hpf (<5) Urine Bacteria None seen /hpf (None Seen) Urine Mucus Few (None Seen) Urine Yeast (Budding) Few /hpf (None Seen) Urine Glucose 4+ mg/dL (Normal) H Microbiology Microbiology Date/Time Source Procedure Growth Status 06/22/25 00:10 Nose MRSA Screen - Final Complete 06/18/25 15:04 Sputum Gram Stain - Final Complete 06/18/25 15:04 Respiratory Culture - Final Klebsiella pneumoniae Leclercia adecarboxylata Enterobacter cloacae Citrobacter farmeri Complete 06/18/25 13:09 Blood Blood Culture - Final NO GROWTH AFTER 5 DAYS OF INCUBATION. Complete Assessment/Plan Assessment/Plan Status post DKA Septic shock Right foot osteomyelitis Decubitus ulcers Respiratory failure Pneumonia COVID infection Hypertension Diabetes Anemia Thrombocytosis Hyperglycemia/uncontrolled diabetes Plan: A1c. Head CT. Further plan per orders. Plan discussed with: Other (Nursing) My Orders Orders - DIANA MACHADO MD Procedure Category Date Status Time Head Without Contrast CT 07/10/25 Logged 11:08 Insulin Lantus PHA 07/11/25 Logged (Glargine) (Lantus) 07:00 Date of Service: Jul 10, 2025 Billing Provider: DIANA MACHADO MD Common Visit Codes: [id number] INP/OBS CARE(HIGH) DIANA MACHADO MD Jul 10, 2025 11:15
[2025-07-10] MEDS: LORazepam 2MG/ML-1ML VIAL IV ONE (12:47)
--- NOTE | 2025-07-10 14:08 | DVH ---
EXAM: CT HEAD WITHOUT CONTRAST INDICATION: altered TECHNIQUE: CT of the head without intravenous contrast. Radiation Dose : 1. Head: CT Dose: CTDI volume is 53.47 mGy. Dose-length product is 965.65 mGy*cm The dose indicators for CT are the volume Computed Tomography (CT) Dose Index (CTDIvol) and the Dose Length Product (DLP), and are measured in units of mGy and mGy-cm, respectively. These indicators are not patient dose, but values generated from the CT scanner acquisition factors. The report includes radiation exposure data for exposures received during this examination. COMPARISON: CT HEAD WITHOUT CONTRAST on DOS: 06/29/25 FINDINGS: There is no evidence of acute intracranial hemorrhage, extra-axial collection, mass effect, midline s hift, herniation or hydrocephalus. The ventricles, sulci and cisterns are age appropriate. The [place]-white differentiation is intact. Patchy periventricular and subcortical white matter hypoattenuation is nonspecific but may be related to small vessel ischemic disease. The visualized paranasal sinuses and mastoid air cells are clear. The surrounding soft tissues and osseous structures are unremarkable. IMPRESSION: No acute intracranial abnormality. Radiation optimization: All CT scans at this facility use at least one of these dose optimization axel hniques: automated exposure control mA and/or kV adjustment per patient size (includes targeted exam s where dose is matched to clinical indication) or iterative reconstruction.
--- NOTE | 2025-07-10 14:09 | DVH ---
Exam: US US GUIDED VASCULAR ACCESS Clinical History: picc line placement Comparison: CT CT ANGIO ABD AORTA W RUN OFF on DOS: 06/01/25, US BILAT LOW EXT ART DUPLEX on DOS: 05/31, US RT LOWER DVT on DOS: 05/31/25 Technique: Targeted sonographic evaluation of the soft tissues of the arm vein was obtained utilizing grayscale and color Doppler imaging. Findings/Impression: Sonographic assistance for PICC line placement.
--- NOTE | 2025-07-10 19:14 | DVHPN2 ---
Progress Note - Dictate Date Seen: Jul 10, 2025 Medical Necessity Reason Pt with a Central, PICC or Fol: No Subjective Patient was seen and evaluated in follow up. No overnight events. Patient does not voice any complaints. WBC 13.1. CT head showed no acute intracranial abnormality. Telemetry reviewed. vital signs Vital Sign Date Time Temp Pulse Resp B/P (MAP) Pulse Ox O2 Delivery O2 Flow Rate FiO2 07/10/25 16:35 98.4 88 16 101/52 (68) 96 98.4 07/10/25 07:35 Room Air* 0 21 Total Intake and Output 07/09/25 07/09/25 07/10/25 15:00 23:00 07:00 Intake Total 100 ml 700 ml 240 ml Output Total 1050 ml 700 ml Balance 100 ml -350 ml -460 ml medications Current Medications Medications Dose Ordered Sig/Philip Route Start Time Stop Time Status Last Admin Dose Admin Dextrose 50 ml UD PRN IV 06/18/25 17:00 Cancel Vancomycin HCl 0 ml @ 0 mls/hr UD IV 06/18/25 20:30 Ondansetron HCl 4 mg Q4HP PRN IV 06/18/25 20:30 Nitroglycerin 0.4 mg Q5MINP PRN SL 06/18/25 20:30 Morphine Sulfate 2 mg Q30M PRN IV 06/18/25 20:30 Pantoprazole Sodium 40 mg BID IV 06/21/25 22:00 07/10/25 09:01 40 MG Cefepime HCl 50 ml @ 12.5 mls/hr Q8HR IV 06/26/25 22:00 07/10/25 14:25 12.5 MLS/HR Morphine Sulfate 1 mg Q4HP PRN IV 07/02/25 10:00 07/04/25 23:25 1 MG Enteral Nutritional Formula 240 ml BIDWM PO 07/04/25 18:00 07/10/25 18:01 240 ML Magnesium Sulfate/ Dextrose 100 ml @ 100 mls/hr Q1HR IV 07/05/25 05:00 07/05/25 06:59 Cancel Metoprolol Tartrate 25 mg BID PO 07/05/25 10:00 07/10/25 09:01 25 MG Acetaminophen/ Hydrocodone Bitart 1 tab Q4HPRN PRN PO 07/05/25 12:45 07/10/25 09:02 1 TAB Acetaminophen 650 mg Q6HP PRN PO 07/05/25 14:45 Insulin Glargine 15 units HS SC 07/06/25 22:00 07/09/25 22:09 15 UNITS Vancomycin HCl 100 ml @ 100 mls/hr DAILY@1100 IV 07/08/25 11:00 07/10/25 11:55 100 MLS/HR Sodium Chloride 10 ml QSHIFT@10,22 IV 07/08/25 22:00 07/10/25 09:01 10 ML Diagnostic Test (Pha) 1 strip ACHS 07/09/25 11:30 07/10/25 18:00 1 STRIP Insulin Human Regular ACHS SC 07/09/25 11:30 07/10/25 18:00 2 UNITS Dextrose 50 ml UD PRN IV 07/09/25 10:15 Insulin Glargine 10 units QAM SC 07/11/25 07:00 objective GENERAL: Alert and oriented x 3. No acute distress. EYES: PERRL, EOMI. Anicteric. HENT: Moist mucous membranes. LUNGS: Clear to auscultation bilaterally. CARDIOVASCULAR: Regular rate and rhythm. ABDOMEN: Soft, non-tender and non-distended. EXTREMITIES: No edema. NEUROLOGIC: No focal neurological deficits. SKIN: Warm, dry. laboratory and microbiology Laboratory Tests 07/10/25 06:42 Test 07/10/25 06:42 Range/Units Serum Glucose 159 H 74-106 mg/dL Problem List Preprocedural cardiovascular examination. Acute hypoxic respiratory failure in the setting of COVID pneumonia. Right foot osteomyelitis. Sepsis. Diabetic ketoacidosis. Acute kidney injury, resolved. Dementia. Assessment/Plan Continued all current supportive medical care. Morphine and [place] for pain management. IV antibiotics as ordered. GI prophylactics. Metoprolol. Nitro SL. Additional plan as per the hospital course. Dietary Evaluation Review Comments: 1. glucerna 50/hr, along with Propofol 257kcal provide 100% Protein needs and 128% energy needs. Adding [place] BID will promote wound healing. 2. Continure TF protocol, 3. Reassess when pt is extubated 4. Advance to CCHO-60 diet when pt passes [employer] eval. Expected Outcomes/Goals: gradually healed wound, Avoid catabolic syndrome Plan discussed with: Patient ROSE DURAN MD Jul 10, 2025 18:19
[2025-07-11] VITALS (8 sets, daily range): BP systolic 103–129; BP diastolic 54–78; PULSE 78–94; RESP 16–18; TEMP 97.2–98.1; O2SAT 95–100
[2025-07-11 05:46] LABS: Hematocrit 30.3 % (41.0-53.0); Hemoglobin 10.3 g/dL (13.5-17.5)
[2025-07-11 05:47] LABS: Mean Corpuscular Hemoglobin 33.5 pg (28.0-32.0); Mean Corpuscular Volume 98.3 fL (80.0-100.0); Nucleated Red Blood Cells % 0.1 %
[2025-07-11 05:49] LABS: Chloride 106 mmol/L (98-107); Potassium 4.0 mmol/L (3.5-5.1); Sodium 136 mmol/L (136-145)
[2025-07-11 05:50] LABS: Anion Gap 11 (5-15)
[2025-07-11 05:55] LABS: BUN/Creatinine Ratio 23.5 (10.0-20.0)
[2025-07-11 06:01] LABS: Blood Urea Nitrogen 24 mg/dL (9-23); Calcium 8.7 mg/dL (8.7-10.4); Carbon Dioxide 19 mmol/L (20-31); Glucose 155 mg/dL (74-106)
[2025-07-11] MEDS: INSULIN LANTUS (GLARGINE) 1 /0.01ml (100units/ml) SC SCH (06:29)
--- NOTE | 2025-07-11 15:04 | DVHPN2 ---
Subjective same Reviewed: Care Plan, H&P, Labs, Medications, Previous Orders, Radiology Changes from previous H/P or p: No Changes General: Per HPI Objective Vitals Vital Signs Date Time Temp Pulse Resp B/P (MAP) Pulse Ox O2 Delivery O2 Flow Rate FiO2 07/11/25 13:00 97.2 82 16 115/73 (87) 99 97.2 07/11/25 08:00 Room Air* 0 21 Intake/Output Intake and Output 07/11/25 07:00 Intake Total 874 ml Output Total 800 ml Balance 74 ml Intake Oral 674 ml IV Total 200 ml Output Urine Total 800 ml General Appearance: Alert, Other (Encephalopathic) HEENT: Atraumatic, Other (right pupil slightly larger than left) Lungs: Clear to auscultation Cardiovascular: Regular rate Abdomen: Normal bowel sounds, Soft, No tenderness Musculoskeletal: Other (bilateral BKA) Medications Current Medications Medications Dose Ordered Sig/Philip Route Start Time Stop Time Status Last Admin Dose Admin Dextrose 50 ml UD PRN IV 06/18/25 17:00 Cancel Vancomycin HCl 0 ml @ 0 mls/hr UD IV 06/18/25 20:30 Ondansetron HCl 4 mg Q4HP PRN IV 06/18/25 20:30 Nitroglycerin 0.4 mg Q5MINP PRN SL 06/18/25 20:30 Morphine Sulfate 2 mg Q30M PRN IV 06/18/25 20:30 Pantoprazole Sodium 40 mg BID IV 06/21/25 22:00 07/11/25 09:47 40 MG Cefepime HCl 50 ml @ 12.5 mls/hr Q8HR IV 06/26/25 22:00 07/11/25 14:58 12.5 MLS/HR Morphine Sulfate 1 mg Q4HP PRN IV 07/02/25 10:00 07/04/25 23:25 1 MG Enteral Nutritional Formula 240 ml BIDWM PO 07/04/25 18:00 07/11/25 09:58 240 ML Magnesium Sulfate/ Dextrose 100 ml @ 100 mls/hr Q1HR IV 07/05/25 05:00 07/05/25 06:59 Cancel Metoprolol Tartrate 25 mg BID PO 07/05/25 10:00 07/11/25 09:49 25 MG Acetaminophen/ Hydrocodone Bitart 1 tab Q4HPRN PRN PO 07/05/25 12:45 07/10/25 09:02 1 TAB Acetaminophen 650 mg Q6HP PRN PO 07/05/25 14:45 Insulin Glargine 15 units HS SC 07/06/25 22:00 07/10/25 22:00 15 UNITS Vancomycin HCl 100 ml @ 100 mls/hr DAILY@1100 IV 07/08/25 11:00 07/11/25 09:50 100 MLS/HR Sodium Chloride 10 ml QSHIFT@10,22 IV 07/08/25 22:00 07/11/25 09:48 10 ML Diagnostic Test (Pha) 1 strip ACHS 07/09/25 11:30 07/11/25 11:50 1 STRIP Insulin Human Regular ACHS SC 07/09/25 11:30 07/11/25 11:45 6 UNITS Dextrose 50 ml UD PRN IV 07/09/25 10:15 Insulin Glargine 10 units QAM SC 07/11/25 07:00 07/11/25 06:29 10 UNITS Laboratory Results Laboratory Tests 07/11/25 05:14 Chemistry Test 07/11/25 05:14 Calcium Level 8.7 mg/dL (8.7-10.4) Urinalysis Test 06/18/25 13:37 07/06/25 23:30 Urine Hyaline Casts Few /lpf (0 - 2) Urine Color Light-yellow (Yellow) Urine Clarity Clear (Clear) Urine pH 6.5 (5.0-9.0) Urine Specific [place] 1.014 (1.001-1.035) Urine Protein 1+ (Negative) H Urine Ketones Negative (Negative) Urine Blood 2+ /uL (Negative) H Urine Nitrite Negative (Negative) Urine Bilirubin Negative (Negative) Urine Urobilinogen Normal mg/dL (Negative) Urine Leukocyte Esterase Negative /uL (Negative) Urine RBC 17 /hpf (0 - 3) Urine Microscopic WBC 6 /HPF (0-3) H Urine Squamous Epithelial Cells Few /hpf (<5) Urine Bacteria None seen /hpf (None Seen) Urine Mucus Few (None Seen) Urine Yeast (Budding) Few /hpf (None Seen) Urine Glucose 4+ mg/dL (Normal) H Microbiology Microbiology Date/Time Source Procedure Growth Status 06/22/25 00:10 Nose MRSA Screen - Final Complete 06/18/25 15:04 Sputum Gram Stain - Final Complete 06/18/25 15:04 Respiratory Culture - Final Klebsiella pneumoniae Leclercia adecarboxylata Enterobacter cloacae Citrobacter farmeri Complete 06/18/25 13:09 Blood Blood Culture - Final NO GROWTH AFTER 5 DAYS OF INCUBATION. Complete Assessment/Plan Assessment/Plan Status post DKA Septic shock Right foot osteomyelitis Decubitus ulcers Respiratory failure Pneumonia COVID infection Hypertension Diabetes Anemia Thrombocytosis Hyperglycemia/uncontrolled diabetes Plan: [facility]. Plan discussed with: Other (Nursing) Date of Service: Jul 11, 2025 Billing Provider: DIANA MACHADO MD Common Visit Codes: [id number] INP/OBS CARE(HIGH) DIANA MACHADO MD Jul 11, 2025 15:03
--- NOTE | 2025-07-11 19:51 | DVHPN2 ---
[facility] DOS: 07/09/2025 Patient seen and examined at bedside. Breathing comfortably on room air. Overnight events reviewed HPI: Patient is a 70-year old gentleman with PMHx of dementia, hypertension and diabetes who presented to ED on 06/18/25 with c/o altered mental status and generalized weakness. When EMS arrived on the scene, patient's blood sugar was high, hypotensive with blood pressure 76/40, increased work of breathing, and was given IV fluid normal saline, O2 saturation at 96% en route to our facility ED Was seen in the emergency room, where he was intubated for airway protection and placed on mechanical ventilation. Initial settings AC volume control RR 20, tidal volume 400, PEEP 5, FiO2 100%. Patient was also found to have a markedly elevated blood sugar consistent with DKA and he was started on IV insulin drip. ABG pH 7.05, pCO2 30, pO2 440. Pt also tested positive for COVID-19. Initial ED workup: WBC 26.7, platelets 568, sodium 126, potassium 5.5, BUN 43, creatinine 2 five eight, GFR 34, glucose 852, anion gap 26, acetone > 4.500, calcium 10.2 trending down to 8.4, troponin 31. Chest x-ray revealed no evidence of acute cardiopulmonary process. Patient was admitted for further care. Pulmonary consultation was requested for evaluation and management of acute hypoxic respiratory failure, pneumonia and COVID-19 Past Medical History DM, hypertension and dementia. Past Surgical History BKA (LLE), RLE toe amputation. Medications: Reviewed. Allergies: No known drug allergies. Family History No family history of premature CAD. No family history of lung disorders. Social History: Nonsmoker. No alcohol or illicit drug use. Reviewed: Care Plan, H&P, Labs, Medications, Previous Orders, Radiology Changes from previous H/P or p: No Changes General: Per HPI Objective Vitals Vital Signs Date Time Temp Pulse Resp B/P (MAP) Pulse Ox O2 Delivery O2 Flow Rate FiO2 07/11/25 17:00 97.6 78 17 107/74 (85) 98 97.6 07/11/25 08:00 Room Air* 0 21 Intake/Output Intake and Output 07/11/25 07:00 Intake Total 874 ml Output Total 800 ml Balance 74 ml Intake Oral 674 ml IV Total 200 ml Output Urine Total 800 ml General Appearance: Alert, Other (Encephalopathic) HEENT: Atraumatic, Other (right pupil slightly larger than left) Lungs: Clear to auscultation Cardiovascular: Regular rate Abdomen: Normal bowel sounds, Soft, No tenderness Musculoskeletal: Other (bilateral BKA) Medications Current Medications Medications Dose Ordered Sig/Philip Route Start Time Stop Time Status Last Admin Dose Admin Dextrose 50 ml UD PRN IV 06/18/25 17:00 Cancel Vancomycin HCl 0 ml @ 0 mls/hr UD IV 06/18/25 20:30 Ondansetron HCl 4 mg Q4HP PRN IV 06/18/25 20:30 Nitroglycerin 0.4 mg Q5MINP PRN SL 06/18/25 20:30 Morphine Sulfate 2 mg Q30M PRN IV 06/18/25 20:30 Pantoprazole Sodium 40 mg BID IV 06/21/25 22:00 07/11/25 09:47 40 MG Cefepime HCl 50 ml @ 12.5 mls/hr Q8HR IV 06/26/25 22:00 07/11/25 14:58 12.5 MLS/HR Morphine Sulfate 1 mg Q4HP PRN IV 07/02/25 10:00 07/04/25 23:25 1 MG Enteral Nutritional Formula 240 ml BIDWM PO 07/04/25 18:00 07/11/25 18:00 240 ML Magnesium Sulfate/ Dextrose 100 ml @ 100 mls/hr Q1HR IV 07/05/25 05:00 07/05/25 06:59 Cancel Metoprolol Tartrate 25 mg BID PO 07/05/25 10:00 07/11/25 09:49 25 MG Acetaminophen/ Hydrocodone Bitart 1 tab Q4HPRN PRN PO 07/05/25 12:45 07/10/25 09:02 1 TAB Acetaminophen 650 mg Q6HP PRN PO 07/05/25 14:45 Insulin Glargine 15 units HS SC 07/06/25 22:00 07/10/25 22:00 15 UNITS Vancomycin HCl 100 ml @ 100 mls/hr DAILY@1100 IV 07/08/25 11:00 07/11/25 09:50 100 MLS/HR Sodium Chloride 10 ml QSHIFT@,22 IV 07/08/25 22:00 07/11/25 09:48 10 ML Diagnostic Test (Pha) 1 strip ACHS 07/09/25 11:30 07/11/25 17:27 1 STRIP Insulin Human Regular ACHS SC 07/09/25 11:30 07/11/25 17:26 3 UNITS Dextrose 50 ml UD PRN IV 07/09/25 10:15 Insulin Glargine 10 units QAM SC 07/11/25 07:00 07/11/25 06:29 10 UNITS Laboratory Results Laboratory Tests 07/11/25 05:14 Chemistry Test 07/11/25 05:14 Calcium Level 8.7 mg/dL (8.7-10.4) Urinalysis Test 06/18/25 13:37 07/06/25 23:30 Urine Hyaline Casts Few /lpf (0 - 2) Urine Color Light-yellow (Yellow) Urine Clarity Clear (Clear) Urine pH 6.5 (5.0-9.0) Urine Specific [place] 1.014 (1.001-1.035) Urine Protein 1+ (Negative) H Urine Ketones Negative (Negative) Urine Blood 2+ /uL (Negative) H Urine Nitrite Negative (Negative) Urine Bilirubin Negative (Negative) Urine Urobilinogen Normal mg/dL (Negative) Urine Leukocyte Esterase Negative /uL (Negative) Urine RBC 17 /hpf (0 - 3) Urine Microscopic WBC 6 /HPF (0-3) H Urine Squamous Epithelial Cells Few /hpf (<5) Urine Bacteria None seen /hpf (None Seen) Urine Mucus Few (None Seen) Urine Yeast (Budding) Few /hpf (None Seen) Urine Glucose 4+ mg/dL (Normal) H Microbiology Microbiology Date/Time Source Procedure Growth Status 06/22/25 00:10 Nose MRSA Screen - Final Complete 06/18/25 15:04 Sputum Gram Stain - Final Complete 06/18/25 15:04 Respiratory Culture - Final Klebsiella pneumoniae Leclercia adecarboxylata Enterobacter cloacae Citrobacter farmeri Complete 06/18/25 13:09 Blood Blood Culture - Final NO GROWTH AFTER 5 DAYS OF INCUBATION. Complete Assessment/Plan Assessment/Plan Impression: Acute hypoxic respiratory failure Acute metabolic encephalopathy Pneumonia, likely GNR COVID-19 infection Right foot osteomyelitis Diabetic ketoacidosis Events: Remains on room air Supplemental oxygen PRN No acute overnight events. S/p PICC line placement. Continue supportive care Continue antibiotics Head of bed elevation Aspiration precautions Wound care Clinimix for nutritional support Accu-Cheks, ISS. Protonix BID for GI ppx. Monitor hemoglobin Labs and imaging reviewed. Rest of plan as noted below. Plan: Supplemental oxygen PRN Titrate to keep O2 sats above 92%. Continue antibiotics Follow up cultures Hemodynamic monitoring. Supportive care. Monitor hemoglobin Transfuse if less than 7.0 g/dL. Pain control Avoid oversedation Monitor renal function. Monitor electrolytes. Supplement as necessary. Monitor ins and outs. Clinimix for nutritional support Wound care DVT prophylaxis. Prognosis: Guarded given patient's multiple co-morbidities. Rest of plan per hospitalist and other consultants. Thank you, BREANNA Serrato, for allowing me to participate in this patient's care. Further recommendations will depend on the patient's clinical course. Please do not hesitate to contact me if you have any questions or concerns. This medical document was created using an electronic medical record system with [employer] dictation system. Although these documentations are being carefully reviewed, there may still be some phonetic and typographical changes. The errors are purely typographical, due to imperfection on the software program, and do not reflect any compromise in the patient's medical care. Plan discussed with: Patient, Other (RN Anthony) Date of Service: Jul 09, 2025 Billing Provider: RENAE FLORES MD Common Visit Codes: [id number] INP/OBS CARE(HIGH) RENAE FLORES MD Jul 11, 2025 19:51
--- NOTE | 2025-07-11 21:45 | DVHPN2 ---
Progress Note - Dictate Date Seen: Jul 11, 2025 Medical Necessity Reason Pt with a Central, PICC or Fol: No Subjective Patient was seen and evaluated in follow up. Overnight, per RN, the patient was combative and refusing medications. WBC 12.2, CO2 19, BUN 24, GLUC 257. Telemetry reviewed. vital signs Vital Sign Date Time Temp Pulse Resp B/P (MAP) Pulse Ox O2 Delivery O2 Flow Rate FiO2 07/11/25 13:00 97.2 82 16 115/73 (87) 99 97.2 07/11/25 08:00 Room Air* 0 21 Total Intake and Output 07/10/25 07/10/25 07/11/25 15:00 23:00 07:00 Intake Total 424 ml 300 ml 150 ml Output Total 400 ml 200 ml 200 ml Balance 24 ml 100 ml -50 ml medications Current Medications Medications Dose Ordered Sig/Philip Route Start Time Stop Time Status Last Admin Dose Admin Dextrose 50 ml UD PRN IV 06/18/25 17:00 Cancel Vancomycin HCl 0 ml @ 0 mls/hr UD IV 06/18/25 20:30 Ondansetron HCl 4 mg Q4HP PRN IV 06/18/25 20:30 Nitroglycerin 0.4 mg Q5MINP PRN SL 06/18/25 20:30 Morphine Sulfate 2 mg Q30M PRN IV 06/18/25 20:30 Pantoprazole Sodium 40 mg BID IV 06/21/25 22:00 07/11/25 09:47 40 MG Cefepime HCl 50 ml @ 12.5 mls/hr Q8HR IV 06/26/25 22:00 07/11/25 06:32 12.5 MLS/HR Morphine Sulfate 1 mg Q4HP PRN IV 07/02/25 10:00 07/04/25 23:25 1 MG Enteral Nutritional Formula 240 ml BIDWM PO 07/04/25 18:00 07/11/25 09:58 240 ML Magnesium Sulfate/ Dextrose 100 ml @ 100 mls/hr Q1HR IV 07/05/25 05:00 07/05/25 06:59 Cancel Metoprolol Tartrate 25 mg BID PO 07/05/25 10:00 07/11/25 09:49 25 MG Acetaminophen/ Hydrocodone Bitart 1 tab Q4HPRN PRN PO 07/05/25 12:45 07/10/25 09:02 1 TAB Acetaminophen 650 mg Q6HP PRN PO 07/05/25 14:45 Insulin Glargine 15 units HS SC 07/06/25 22:00 07/10/25 22:00 15 UNITS Vancomycin HCl 100 ml @ 100 mls/hr DAILY@1100 IV 07/08/25 11:00 07/11/25 09:50 100 MLS/HR Sodium Chloride 10 ml QSHIFT@10,22 IV 07/08/25 22:00 07/11/25 09:48 10 ML Diagnostic Test (Pha) 1 strip ACHS 07/09/25 11:30 07/11/25 11:50 1 STRIP Insulin Human Regular ACHS SC 07/09/25 11:30 07/11/25 11:45 6 UNITS Dextrose 50 ml UD PRN IV 07/09/25 10:15 Insulin Glargine 10 units QAM SC 07/11/25 07:00 07/11/25 06:29 10 UNITS objective GENERAL: Alert and oriented x 3. No acute distress. EYES: PERRL, EOMI. Anicteric. HENT: Moist mucous membranes. LUNGS: Clear to auscultation bilaterally. CARDIOVASCULAR: Regular rate and rhythm. ABDOMEN: Soft, non-tender and non-distended. EXTREMITIES: No edema. NEUROLOGIC: No focal neurological deficits. SKIN: Warm, dry. laboratory and microbiology Laboratory Tests 07/11/25 05:14 Test 07/11/25 05:14 Range/Units Serum Glucose 155 H 74-106 mg/dL Problem List Preprocedural cardiovascular examination. Acute hypoxic respiratory failure in the setting of COVID pneumonia. Right foot osteomyelitis. Sepsis. Diabetic ketoacidosis. Acute kidney injury, resolved. Dementia. Assessment/Plan Continued all current supportive medical care. Morphine for pain management. IV antibiotics as ordered. GI prophylactics. Metoprolol. Nitro SL. Additional plan as per the hospital course. Dietary Evaluation Review Comments: 1. glucerna 50/hr, along with Propofol 257kcal provide 100% Protein needs and 128% energy needs. Adding Ryder BID will promote wound healing. 2. Continure TF protocol, 3. Reassess when pt is extubated 4. Advance to CCHO-60 diet when pt passes SQL MANAGER eval. Expected Outcomes/Goals: gradually healed wound, Avoid catabolic syndrome Plan discussed with: Patient ROSE DURAN MD Jul 11, 2025 13:24
--- NOTE | 2025-07-11 22:29 | DVHPN2 ---
[facility] DOS: 07/10/2025 Patient seen and examined at bedside. Breathing comfortably on room air. Overnight events reviewed HPI: Patient is a 70-year old gentleman with PMHx of dementia, hypertension and diabetes who presented to ED on 06/18/25 with c/o altered mental status and generalized weakness. When EMS arrived on the scene, patient's blood sugar was high, hypotensive with blood pressure 76/40, increased work of breathing, and was given IV fluid normal saline, O2 saturation at 96% en route to our facility ED Was seen in the emergency room, where he was intubated for airway protection and placed on mechanical ventilation. Initial settings AC volume control RR 20, tidal volume 400, PEEP 5, FiO2 100%. Patient was also found to have a markedly elevated blood sugar consistent with DKA and he was started on IV insulin drip. ABG pH 7.05, pCO2 30, pO2 440. Pt also tested positive for COVID-19. Initial ED workup: WBC 26.7, platelets 568, sodium 126, potassium 5.5, BUN 43, creatinine 2 five eight, GFR 34, glucose 852, anion gap 26, acetone > 4.500, calcium 10.2 trending down to 8.4, troponin 31. Chest x-ray revealed no evidence of acute cardiopulmonary process. Patient was admitted for further care. Pulmonary consultation was requested for evaluation and management of acute hypoxic respiratory failure, pneumonia and COVID-19 Past Medical History DM, hypertension and dementia. Past Surgical History BKA (LLE), RLE toe amputation. Medications: Reviewed. Allergies: No known drug allergies. Family History No family history of premature CAD. No family history of lung disorders. Social History: Nonsmoker. No alcohol or illicit drug use. Reviewed: Care Plan, H&P, Labs, Medications, Previous Orders, Radiology Changes from previous H/P or p: No Changes General: Per HPI Objective Vitals Vital Signs Date Time Temp Pulse Resp B/P (MAP) Pulse Ox O2 Delivery O2 Flow Rate FiO2 07/11/25 22:00 85 113/68 07/11/25 21:00 98.1 18 100 98.1 07/11/25 20:00 Room Air* 0 21 Intake/Output Intake and Output 07/11/25 06:59 Intake Total 874 ml Output Total 800 ml Balance 74 ml Intake Oral 674 ml IV Total 200 ml Output Urine Total 800 ml General Appearance: Alert, Other (Encephalopathic) HEENT: Atraumatic, Other (right pupil slightly larger than left) Lungs: Clear to auscultation Cardiovascular: Regular rate Abdomen: Normal bowel sounds, Soft, No tenderness Musculoskeletal: Other (bilateral BKA) Medications Current Medications Medications Dose Ordered Sig/Philip Route Start Time Stop Time Status Last Admin Dose Admin Dextrose 50 ml UD PRN IV 06/18/25 17:00 Cancel Vancomycin HCl 0 ml @ 0 mls/hr UD IV 06/18/25 20:30 Ondansetron HCl 4 mg Q4HP PRN IV 06/18/25 20:30 Nitroglycerin 0.4 mg Q5MINP PRN SL 06/18/25 20:30 Morphine Sulfate 2 mg Q30M PRN IV 06/18/25 20:30 Pantoprazole Sodium 40 mg BID IV 06/21/25 22:00 07/11/25 22:00 40 MG Cefepime HCl 50 ml @ 12.5 mls/hr Q8HR IV 06/26/25 22:00 07/11/25 22:00 12.5 MLS/HR Morphine Sulfate 1 mg Q4HP PRN IV 07/02/25 10:00 07/04/25 23:25 1 MG Enteral Nutritional Formula 240 ml BIDWM PO 07/04/25 18:00 07/11/25 18:00 240 ML Magnesium Sulfate/ Dextrose 100 ml @ 100 mls/hr Q1HR IV 07/05/25 05:00 07/05/25 06:59 Cancel Metoprolol Tartrate 25 mg BID PO 07/05/25 10:00 07/11/25 09:49 25 MG Acetaminophen/ Hydrocodone Bitart 1 tab Q4HPRN PRN PO 07/05/25 12:45 07/10/25 09:02 1 TAB Acetaminophen 650 mg Q6HP PRN PO 07/05/25 14:45 Insulin Glargine 15 units HS SC 07/06/25 22:00 07/11/25 22:06 15 UNITS Vancomycin HCl 100 ml @ 100 mls/hr DAILY@1100 IV 07/08/25 11:00 07/11/25 09:50 100 MLS/HR Sodium Chloride 10 ml QSHIFT@10,22 IV 07/08/25 22:00 07/11/25 22:00 10 ML Diagnostic Test (Pha) 1 strip ACHS 07/09/25 11:30 07/11/25 22:01 1 STRIP Insulin Human Regular ACHS SC 07/09/25 11:30 07/11/25 22:05 3 UNITS Dextrose 50 ml UD PRN IV 07/09/25 10:15 Insulin Glargine 10 units QAM SC 07/11/25 07:00 07/11/25 06:29 10 UNITS Laboratory Results Laboratory Tests 07/11/25 05:14 Chemistry Test 07/11/25 05:14 Calcium Level 8.7 mg/dL (8.7-10.4) Urinalysis Test 06/18/25 13:37 07/06/25 23:30 Urine Hyaline Casts Few /lpf (0 - 2) Urine Color Light-yellow (Yellow) Urine Clarity Clear (Clear) Urine pH 6.5 (5.0-9.0) Urine Specific [place] 1.014 (1.001-1.035) Urine Protein 1+ (Negative) H Urine Ketones Negative (Negative) Urine Blood 2+ /uL (Negative) H Urine Nitrite Negative (Negative) Urine Bilirubin Negative (Negative) Urine Urobilinogen Normal mg/dL (Negative) Urine Leukocyte Esterase Negative /uL (Negative) Urine RBC 17 /hpf (0 - 3) Urine Microscopic WBC 6 /HPF (0-3) H Urine Squamous Epithelial Cells Few /hpf (<5) Urine Bacteria None seen /hpf (None Seen) Urine Mucus Few (None Seen) Urine Yeast (Budding) Few /hpf (None Seen) Urine Glucose 4+ mg/dL (Normal) H Microbiology Microbiology Date/Time Source Procedure Growth Status 06/22/25 00:10 Nose MRSA Screen - Final Complete 06/18/25 15:04 Sputum Gram Stain - Final Complete 06/18/25 15:04 Respiratory Culture - Final Klebsiella pneumoniae Leclercia adecarboxylata Enterobacter cloacae Citrobacter farmeri Complete 06/18/25 13:09 Blood Blood Culture - Final NO GROWTH AFTER 5 DAYS OF INCUBATION. Complete Assessment/Plan Assessment/Plan Impression: Acute hypoxic respiratory failure Acute metabolic encephalopathy Pneumonia, likely GNR COVID-19 infection Right foot osteomyelitis Diabetic ketoacidosis Events: Remains on room air Supplemental oxygen PRN No acute overnight events. Continue supportive care Continue antibiotics Incentive spirometry Head of bed elevation Aspiration precautions Wound care Clinimix for nutritional support Accu-Cheks, ISS. Protonix BID for GI ppx. Monitor hemoglobin Labs and imaging reviewed. Rest of plan as noted below. Plan: Supplemental oxygen PRN Titrate to keep O2 sats above 92%. S/p PICC line placement. Continue antibiotics Follow up cultures Hemodynamic monitoring. Supportive care. Monitor hemoglobin Transfuse if less than 7.0 g/dL. Pain control Avoid oversedation Monitor renal function. Monitor electrolytes. Supplement as necessary. Monitor ins and outs. Clinimix for nutritional support Wound care DVT prophylaxis. Prognosis: Guarded given patient's multiple co-morbidities. Rest of plan per hospitalist and other consultants. Thank you, BREANNA Serrato, for allowing me to participate in this patient's care. Further recommendations will depend on the patient's clinical course. Please do not hesitate to contact me if you have any questions or concerns. This medical document was created using an electronic medical record system with [employer] dictation system. Although these documentations are being carefully reviewed, there may still be some phonetic and typographical changes. The errors are purely typographical, due to imperfection on the software program, and do not reflect any compromise in the patient's medical care. Plan discussed with: Patient, Other (RN) Date of Service: Jul 10, 2025 Billing Provider: RENAE FLORES MD Common Visit Codes: [id number] INP/OBS CARE(HIGH) RENAE FLORES MD Jul 11, 2025 22:29
--- NOTE | 2025-07-11 23:19 | DVHPN2 ---
[facility] DOS: 07/11/2025 Patient seen and examined at bedside. Breathing comfortably on room air. Overnight events reviewed HPI: Patient is a 70-year old gentleman with PMHx of dementia, hypertension and diabetes who presented to ED on 06/18/25 with c/o altered mental status and generalized weakness. When EMS arrived on the scene, patient's blood sugar was high, hypotensive with blood pressure 76/40, increased work of breathing, and was given IV fluid normal saline, O2 saturation at 96% en route to our facility ED Was seen in the emergency room, where he was intubated for airway protection and placed on mechanical ventilation. Initial settings AC volume control RR 20, tidal volume 400, PEEP 5, FiO2 100%. Patient was also found to have a markedly elevated blood sugar consistent with DKA and he was started on IV insulin drip. ABG pH 7.05, pCO2 30, pO2 440. Pt also tested positive for COVID-19. Initial ED workup: WBC 26.7, platelets 568, sodium 126, potassium 5.5, BUN 43, creatinine 2 five eight, GFR 34, glucose 852, anion gap 26, acetone > 4.500, calcium 10.2 trending down to 8.4, troponin 31. Chest x-ray revealed no evidence of acute cardiopulmonary process. Patient was admitted for further care. Pulmonary consultation was requested for evaluation and management of acute hypoxic respiratory failure, pneumonia and COVID-19 Past Medical History DM, hypertension and dementia. Past Surgical History BKA (LLE), RLE toe amputation. Medications: Reviewed. Allergies: No known drug allergies. Family History No family history of premature CAD. No family history of lung disorders. Social History: Nonsmoker. No alcohol or illicit drug use. Reviewed: Care Plan, H&P, Labs, Medications, Previous Orders, Radiology Changes from previous H/P or p: No Changes General: Per HPI Objective Vitals Vital Signs Date Time Temp Pulse Resp B/P (MAP) Pulse Ox O2 Delivery O2 Flow Rate FiO2 07/11/25 22:00 85 113/68 07/11/25 21:00 98.1 18 100 98.1 07/11/25 20:00 Room Air* 0 21 Intake/Output Intake and Output 07/11/25 07:00 Intake Total 874 ml Output Total 800 ml Balance 74 ml Intake Oral 674 ml IV Total 200 ml Output Urine Total 800 ml General Appearance: Alert, Other (Encephalopathic) HEENT: Atraumatic, Other (right pupil slightly larger than left) Lungs: Clear to auscultation, Other (Decreased air entry bilaterally) Cardiovascular: Regular rate, Normal S1, Normal S2 Abdomen: Normal bowel sounds, Soft, No tenderness Musculoskeletal: Normal sensory function, Normal motor function, Other (bilateral BKA) Extremities: No clubbing, No cyanosis, No edema Neuro: Strength at 5/5 X4 ext, Cranial nerves 3-12 NL Skin: Dry, Intact, Warm Medications Current Medications Medications Dose Ordered Sig/Philip Route Start Time Stop Time Status Last Admin Dose Admin Dextrose 50 ml UD PRN IV 06/18/25 17:00 Cancel Vancomycin HCl 0 ml @ 0 mls/hr UD IV 06/18/25 20:30 Ondansetron HCl 4 mg Q4HP PRN IV 06/18/25 20:30 Nitroglycerin 0.4 mg Q5MINP PRN SL 06/18/25 20:30 Morphine Sulfate 2 mg Q30M PRN IV 06/18/25 20:30 Pantoprazole Sodium 40 mg BID IV 06/21/25 22:00 07/11/25 22:00 40 MG Cefepime HCl 50 ml @ 12.5 mls/hr Q8HR IV 06/26/25 22:00 07/11/25 22:00 12.5 MLS/HR Morphine Sulfate 1 mg Q4HP PRN IV 07/02/25 10:00 07/04/25 23:25 1 MG Enteral Nutritional Formula 240 ml BIDWM PO 07/04/25 18:00 07/11/25 18:00 240 ML Magnesium Sulfate/ Dextrose 100 ml @ 100 mls/hr Q1HR IV 07/05/25 05:00 07/05/25 06:59 Cancel Metoprolol Tartrate 25 mg BID PO 07/05/25 10:00 07/11/25 09:49 25 MG Acetaminophen/ Hydrocodone Bitart 1 tab Q4HPRN PRN PO 07/05/25 12:45 07/10/25 09:02 1 TAB Acetaminophen 650 mg Q6HP PRN PO 07/05/25 14:45 Insulin Glargine 15 units HS SC 07/06/25 22:00 07/11/25 22:06 15 UNITS Vancomycin HCl 100 ml @ 100 mls/hr DAILY@1100 IV 07/08/25 11:00 07/11/25 09:50 100 MLS/HR Sodium Chloride 10 ml QSHIFT@10,22 IV 07/08/25 22:00 07/11/25 22:00 10 ML Diagnostic Test (Pha) 1 strip ACHS 07/09/25 11:30 07/11/25 22:01 1 STRIP Insulin Human Regular ACHS SC 07/09/25 11:30 07/11/25 22:05 3 UNITS Dextrose 50 ml UD PRN IV 07/09/25 10:15 Insulin Glargine 10 units QAM SC 07/11/25 07:00 07/11/25 06:29 10 UNITS Laboratory Results Laboratory Tests 07/11/25 05:14 Chemistry Test 07/11/25 05:14 Calcium Level 8.7 mg/dL (8.7-10.4) Urinalysis Test 06/18/25 13:37 07/06/25 23:30 Urine Hyaline Casts Few /lpf (0 - 2) Urine Color Light-yellow (Yellow) Urine Clarity Clear (Clear) Urine pH 6.5 (5.0-9.0) Urine Specific [place] 1.014 (1.001-1.035) Urine Protein 1+ (Negative) H Urine Ketones Negative (Negative) Urine Blood 2+ /uL (Negative) H Urine Nitrite Negative (Negative) Urine Bilirubin Negative (Negative) Urine Urobilinogen Normal mg/dL (Negative) Urine Leukocyte Esterase Negative /uL (Negative) Urine RBC 17 /hpf (0 - 3) Urine Microscopic WBC 6 /HPF (0-3) H Urine Squamous Epithelial Cells Few /hpf (<5) Urine Bacteria None seen /hpf (None Seen) Urine Mucus Few (None Seen) Urine Yeast (Budding) Few /hpf (None Seen) Urine Glucose 4+ mg/dL (Normal) H Microbiology Microbiology Date/Time Source Procedure Growth Status 06/22/25 00:10 Nose MRSA Screen - Final Complete 06/18/25 15:04 Sputum Gram Stain - Final Complete 06/18/25 15:04 Respiratory Culture - Final Klebsiella pneumoniae Leclercia adecarboxylata Enterobacter cloacae Citrobacter farmeri Complete 06/18/25 13:09 Blood Blood Culture - Final NO GROWTH AFTER 5 DAYS OF INCUBATION. Complete Assessment/Plan Assessment/Plan Impression: Acute hypoxic respiratory failure Acute metabolic encephalopathy Pneumonia, likely GNR COVID-19 infection Right foot osteomyelitis Diabetic ketoacidosis Events: Remains on room air Supplemental oxygen PRN No acute overnight events. Continue supportive care Continue antibiotics Incentive spirometry Head of bed elevation Aspiration precautions Wound care Clinimix for nutritional support Accu-Cheks, ISS. Protonix BID for GI ppx. Monitor hemoglobin Labs and imaging reviewed. Rest of plan as noted below. Plan: Supplemental oxygen PRN Titrate to keep O2 sats above 92%. S/p PICC line placement. Continue antibiotics Follow up cultures Hemodynamic monitoring. Supportive care. Monitor hemoglobin Transfuse if less than 7.0 g/dL. Pain control Avoid oversedation Monitor renal function. Monitor electrolytes. Supplement as necessary. Monitor ins and outs. Clinimix for nutritional support Wound care DVT prophylaxis. Prognosis: Guarded given patient's multiple co-morbidities. Rest of plan per hospitalist and other consultants. Thank you, BREANNA Serrato, for allowing me to participate in this patient's care. Further recommendations will depend on the patient's clinical course. Please do not hesitate to contact me if you have any questions or concerns. This medical document was created using an electronic medical record system with [employer] dictation system. Although these documentations are being carefully reviewed, there may still be some phonetic and typographical changes. The errors are purely typographical, due to imperfection on the software program, and do not reflect any compromise in the patient's medical care. Plan discussed with: Other (GINNA Paez) Date of Service: Jul 11, 2025 Billing Provider: RENAE FLORES MD Common Visit Codes: [id number] INP/OBS CARE(HIGH) RENAE FLORES MD Jul 11, 2025 23:19
[2025-07-12] VITALS (8 sets, daily range): BP systolic 102–125; BP diastolic 58–72; PULSE 74–90; RESP 16–17; TEMP 97.5–98.2; O2SAT 98–99
[2025-07-12 06:40] LABS: Anion Gap 10 (5-15); Chloride 106 mmol/L (98-107); Potassium 3.7 mmol/L (3.5-5.1)
[2025-07-12 06:44] LABS: Calcium 8.6 mg/dL (8.7-10.4); Carbon Dioxide 20 mmol/L (20-31); Sodium 136 mmol/L (136-145)
[2025-07-12 06:46] LABS: BUN/Creatinine Ratio 17.9 (10.0-20.0); Blood Urea Nitrogen 20 mg/dL (9-23)
[2025-07-12 06:47] LABS: Glucose 149 mg/dL (74-106)
[2025-07-12 06:52] LABS: Nucleated Red Blood Cells % 0.2 %
[2025-07-12 06:54] LABS: Hematocrit 29.9 % (41.0-53.0); Hemoglobin 10.4 g/dL (13.5-17.5); Mean Corpuscular Hemoglobin 34.0 pg (28.0-32.0); Mean Corpuscular Volume 98.0 fL (80.0-100.0)
--- NOTE | 2025-07-12 09:12 | DVHPN2 ---
Subjective Patient more alert today. Denies any symptoms. Reviewed: Care Plan, H&P, Labs, Medications, Previous Orders, Radiology Changes from previous H/P or p: No Changes General: Per HPI Objective Vitals Vital Signs Date Time Temp Pulse Resp B/P (MAP) Pulse Ox O2 Delivery O2 Flow Rate FiO2 07/12/25 05:00 97.5 89 17 113/68 (83) 98 97.5 07/11/25 20:00 Room Air* 0 21 Intake/Output Intake and Output 07/12/25 07:00 Intake Total 910 ml Output Total 1400 ml Balance -490 ml Intake Oral 710 ml IV Total 200 ml Output Urine Total 1400 ml # Bowel Movements 1 General Appearance: Alert, No acute distress, Other HEENT: Atraumatic, Other (right pupil slightly larger than left) Lungs: Clear to auscultation, Other (Decreased air entry bilaterally) Cardiovascular: Regular rate, Normal S1, Normal S2 Abdomen: Normal bowel sounds, Soft, No tenderness Musculoskeletal: Normal sensory function, Normal motor function, Other (bilateral BKA) Extremities: No clubbing, No cyanosis, No edema Neuro: Strength at 5/5 X4 ext, Cranial nerves 3-12 NL Skin: Dry, Intact, Warm Medications Current Medications Medications Dose Ordered Sig/Philip Route Start Time Stop Time Status Last Admin Dose Admin Dextrose 50 ml UD PRN IV 06/18/25 17:00 Cancel Vancomycin HCl 0 ml @ 0 mls/hr UD IV 06/18/25 20:30 Ondansetron HCl 4 mg Q4HP PRN IV 06/18/25 20:30 Nitroglycerin 0.4 mg Q5MINP PRN SL 06/18/25 20:30 Morphine Sulfate 2 mg Q30M PRN IV 06/18/25 20:30 Pantoprazole Sodium 40 mg BID IV 06/21/25 22:00 07/11/25 22:00 40 MG Cefepime HCl 50 ml @ 12.5 mls/hr Q8HR IV 06/26/25 22:00 07/12/25 05:54 12.5 MLS/HR Morphine Sulfate 1 mg Q4HP PRN IV 07/02/25 10:00 07/04/25 23:25 1 MG Enteral Nutritional Formula 240 ml BIDWM PO 07/04/25 18:00 07/12/25 08:03 240 ML Magnesium Sulfate/ Dextrose 100 ml @ 100 mls/hr Q1HR IV 07/05/25 05:00 07/05/25 06:59 Cancel Metoprolol Tartrate 25 mg BID PO 07/05/25 10:00 07/11/25 09:49 25 MG Acetaminophen/ Hydrocodone Bitart 1 tab Q4HPRN PRN PO 07/05/25 12:45 07/10/25 09:02 1 TAB Acetaminophen 650 mg Q6HP PRN PO 07/05/25 14:45 Insulin Glargine 15 units HS SC 07/06/25 22:00 07/11/25 22:06 15 UNITS Vancomycin HCl 100 ml @ 100 mls/hr DAILY@1100 IV 07/08/25 11:00 07/11/25 09:50 100 MLS/HR Sodium Chloride 10 ml QSHIFT@ IV 07/08/25 22:00 07/11/25 22:00 10 ML Diagnostic Test (Pha) 1 strip ACHS 07/09/25 11:30 07/12/25 05:55 1 STRIP Insulin Human Regular ACHS SC 07/09/25 11:30 07/12/25 06:03 2 UNITS Dextrose 50 ml UD PRN IV 07/09/25 10:15 Insulin Glargine 10 units QAM UT 07/11/25 07:00 07/12/25 06:03 10 UNITS Laboratory Results Laboratory Tests 07/12/25 05:03 Chemistry Test 07/12/25 05:03 Calcium Level 8.6 mg/dL (8.7-10.4) L Urinalysis Test 06/18/25 13:37 07/06/25 23:30 Urine Hyaline Casts Few /lpf (0 - 2) Urine Color Light-yellow (Yellow) Urine Clarity Clear (Clear) Urine pH 6.5 (5.0-9.0) Urine Specific [place] 1.014 (1.001-1.035) Urine Protein 1+ (Negative) H Urine Ketones Negative (Negative) Urine Blood 2+ /uL (Negative) H Urine Nitrite Negative (Negative) Urine Bilirubin Negative (Negative) Urine Urobilinogen Normal mg/dL (Negative) Urine Leukocyte Esterase Negative /uL (Negative) Urine RBC 17 /hpf (0 - 3) Urine Microscopic WBC 6 /HPF (0-3) H Urine Squamous Epithelial Cells Few /hpf (<5) Urine Bacteria None seen /hpf (None Seen) Urine Mucus Few (None Seen) Urine Yeast (Budding) Few /hpf (None Seen) Urine Glucose 4+ mg/dL (Normal) H Microbiology Microbiology Date/Time Source Procedure Growth Status 06/22/25 00:10 Nose MRSA Screen - Final Complete 06/18/25 15:04 Sputum Gram Stain - Final Complete 06/18/25 15:04 Respiratory Culture - Final Klebsiella pneumoniae Leclercia adecarboxylata Enterobacter cloacae Citrobacter farmeri Complete 06/18/25 13:09 Blood Blood Culture - Final NO GROWTH AFTER 5 DAYS OF INCUBATION. Complete Labs and/or images reviewed: Labs reviewed by me, Image(s) reviewed by me Assessment/Plan Assessment/Plan Impression: -septic shock -right foot osteomyelitis -diabetic ketoacidosis -acute hypoxic respiratory failure -diabetes mellitus -primary hypertension -acute kidney injury -decubitus ulcer -acute delirium -community-acquired pneumonia, Gram-positive and Gram-negative etiology -COVID-19 Plan: Events: Patient awake and following commands. Discussed plan of care with the patient's son. Awaiting change in insurance to her at the 1st of the month for SNF placement -regular insulin sliding scale -Protonix 40 mg daily -continue vancomycin, cefepime -social service consultation for discharge planning to retirement facility. -Wound care Total time spent with patient discussing and formulating plan of care: 35 minutes. This medical document was created using an electronic medical record system with [employer] dictation system. Although this document has been carefully reviewed, there may still be some phonetic and typographical errors. These areas are purely typographical due to imperfections of the software programs, and do not reflect any compromise in the patient's medical care. Plan discussed with: Patient, Son, Other (RN) Date of Service: Jul 12, 2025 Billing Provider: MAINE VELAZCO NP Common Visit Codes: [id number] INP/OBS CARE(HIGH) MAINE VELAZCO NP Jul 12, 2025 09:12
[2025-07-12] MEDS: CEFEPIME 2GM/50ML NS 50 ML IV SCH (17:29)
--- NOTE | 2025-07-12 19:52 | DVHPN2 ---
Progress Note - Dictate Date Seen: Jul 12, 2025 Medical Necessity Reason Pt with a Central, PICC or Fol: No Subjective Patient was seen and evaluated in follow up. No overnight events. Patient is resting in bed. WBC 11.8. Telemetry reviewed. vital signs Vital Sign Date Time Temp Pulse Resp B/P (MAP) Pulse Ox O2 Delivery O2 Flow Rate FiO2 07/12/25 15:50 98.1 80 16 102/58 (73) 98 98.1 07/12/25 08:00 Room Air* 0 21 Total Intake and Output 07/11/25 07/11/25 07/12/25 15:00 23:00 07:00 Intake Total 150 ml 460 ml 300 ml Output Total 1200 ml 200 ml Balance 150 ml -740 ml 100 ml medications Current Medications Medications Dose Ordered Sig/Philip Route Start Time Stop Time Status Last Admin Dose Admin Dextrose 50 ml UD PRN IV 06/18/25 17:00 Cancel Vancomycin HCl 0 ml @ 0 mls/hr UD IV 06/18/25 20:30 Ondansetron HCl 4 mg Q4HP PRN IV 06/18/25 20:30 Nitroglycerin 0.4 mg Q5MINP PRN SL 06/18/25 20:30 Morphine Sulfate 2 mg Q30M PRN IV 06/18/25 20:30 Pantoprazole Sodium 40 mg BID IV 06/21/25 22:00 07/12/25 09:39 40 MG Morphine Sulfate 1 mg Q4HP PRN IV 07/02/25 10:00 07/04/25 23:25 1 MG Enteral Nutritional Formula 240 ml BIDWM PO 07/04/25 18:00 07/12/25 17:30 240 ML Magnesium Sulfate/ Dextrose 100 ml @ 100 mls/hr Q1HR IV 07/05/25 05:00 07/05/25 06:59 Cancel Metoprolol Tartrate 25 mg BID PO 07/05/25 10:00 07/12/25 09:39 25 MG Acetaminophen/ Hydrocodone Bitart 1 tab Q4HPRN PRN PO 07/05/25 12:45 07/10/25 09:02 1 TAB Acetaminophen 650 mg Q6HP PRN PO 07/05/25 14:45 Insulin Glargine 15 units HS SC 07/06/25 22:00 07/11/25 22:06 15 UNITS Vancomycin HCl 100 ml @ 100 mls/hr DAILY@1100 IV 07/08/25 11:00 07/12/25 11:45 100 MLS/HR Sodium Chloride 10 ml QSHIFT@10,22 IV 07/08/25 22:00 07/12/25 09:39 10 ML Diagnostic Test (Pha) 1 strip ACHS 07/09/25 11:30 07/12/25 17:29 1 STRIP Insulin Human Regular ACHS SC 07/09/25 11:30 07/12/25 17:30 2 UNITS Dextrose 50 ml UD PRN IV 07/09/25 10:15 Insulin Glargine 10 units QAM SC 07/11/25 07:00 07/12/25 06:03 10 UNITS Cefepime HCl 50 ml @ 12.5 mls/hr Q12H IV 07/12/25 18:00 07/12/25 17:29 12.5 MLS/HR objective GENERAL: Alert and oriented x 3. No acute distress. EYES: PERRL, EOMI. Anicteric. HENT: Moist mucous membranes. LUNGS: Clear to auscultation bilaterally. CARDIOVASCULAR: Regular rate and rhythm. ABDOMEN: Soft, non-tender and non-distended. EXTREMITIES: No edema. NEUROLOGIC: No focal neurological deficits. SKIN: Warm, dry. laboratory and microbiology Laboratory Tests 07/12/25 05:03 Test 07/12/25 05:03 Range/Units Serum Glucose 149 H 74-106 mg/dL Problem List Preprocedural cardiovascular examination. Acute hypoxic respiratory failure in the setting of COVID pneumonia. Right foot osteomyelitis. Sepsis. Diabetic ketoacidosis. Acute kidney injury, resolved. Dementia. Assessment/Plan Continued all current supportive medical care. Morphine for pain management. IV antibiotics as ordered. GI prophylactics. Metoprolol. Nitro SL. Additional plan as per the hospital course. Dietary Evaluation Review Comments: 1. glucerna 50/hr, along with Propofol 257kcal provide 100% Protein needs and 128% energy needs. Adding Ryder BID will promote wound healing. 2. Continure TF protocol, 3. Reassess when pt is extubated 4. Advance to CCHO-60 diet when pt passes RESIDENT SURGEON eval. Expected Outcomes/Goals: gradually healed wound, Avoid catabolic syndrome Plan discussed with: Patient ROSE DURAN MD Jul 12, 2025 19:52
--- NOTE | 2025-07-12 23:05 | DVHPN2 ---
[facility] DOS: 07/12/2025 Patient seen and examined at bedside. Breathing comfortably on room air. Overnight events reviewed HPI: Patient is a 70-year old gentleman with PMHx of dementia, hypertension and diabetes who presented to ED on 06/18/25 with c/o altered mental status and generalized weakness. When EMS arrived on the scene, patient's blood sugar was high, hypotensive with blood pressure 76/40, increased work of breathing, and was given IV fluid normal saline, O2 saturation at 96% en route to our facility ED Was seen in the emergency room, where he was intubated for airway protection and placed on mechanical ventilation. Initial settings AC volume control RR 20, tidal volume 400, PEEP 5, FiO2 100%. Patient was also found to have a markedly elevated blood sugar consistent with DKA and he was started on IV insulin drip. ABG pH 7.05, pCO2 30, pO2 440. Pt also tested positive for COVID-19. Initial ED workup: WBC 26.7, platelets 568, sodium 126, potassium 5.5, BUN 43, creatinine 2 five eight, GFR 34, glucose 852, anion gap 26, acetone > 4.500, calcium 10.2 trending down to 8.4, troponin 31. Chest x-ray revealed no evidence of acute cardiopulmonary process. Patient was admitted for further care. Pulmonary consultation was requested for evaluation and management of acute hypoxic respiratory failure, pneumonia and COVID-19 Past Medical History DM, hypertension and dementia. Past Surgical History BKA (LLE), RLE toe amputation. Medications: Reviewed. Allergies: No known drug allergies. Family History No family history of premature CAD. No family history of lung disorders. Social History: Nonsmoker. No alcohol or illicit drug use. Reviewed: Care Plan, H&P, Labs, Medications, Previous Orders, Radiology Changes from previous H/P or p: No Changes General: Per HPI Objective Vitals Vital Signs Date Time Temp Pulse Resp B/P (MAP) Pulse Ox O2 Delivery O2 Flow Rate FiO2 07/12/25 21:47 84 109/66 07/12/25 21:00 98.2 17 99 98.2 07/12/25 20:00 Room Air* 0 21 Intake/Output Intake and Output 07/12/25 07:00 Intake Total 910 ml Output Total 1400 ml Balance -490 ml Intake Oral 710 ml IV Total 200 ml Output Urine Total 1400 ml # Bowel Movements 1 General Appearance: Alert, No acute distress, Other HEENT: Atraumatic, Other (right pupil slightly larger than left) Lungs: Clear to auscultation, Other (Decreased air entry bilaterally) Cardiovascular: Regular rate, Normal S1, Normal S2 Abdomen: Normal bowel sounds, Soft, No tenderness Musculoskeletal: Normal sensory function, Normal motor function, Other (bilateral BKA) Extremities: No clubbing, No cyanosis, No edema Neuro: Strength at 5/5 X4 ext, Cranial nerves 3-12 NL Skin: Dry, Intact, Warm Medications Current Medications Medications Dose Ordered Sig/Philip Route Start Time Stop Time Status Last Admin Dose Admin Dextrose 50 ml UD PRN IV 06/18/25 17:00 Cancel Vancomycin HCl 0 ml @ 0 mls/hr UD IV 06/18/25 20:30 Ondansetron HCl 4 mg Q4HP PRN IV 06/18/25 20:30 Nitroglycerin 0.4 mg Q5MINP PRN SL 06/18/25 20:30 Morphine Sulfate 2 mg Q30M PRN IV 06/18/25 20:30 Pantoprazole Sodium 40 mg BID IV 06/21/25 22:00 07/12/25 21:46 40 MG Morphine Sulfate 1 mg Q4HP PRN IV 07/02/25 10:00 07/04/25 23:25 1 MG Enteral Nutritional Formula 240 ml BIDWM PO 07/04/25 18:00 07/12/25 17:30 240 ML Magnesium Sulfate/ Dextrose 100 ml @ 100 mls/hr Q1HR IV 07/05/25 05:00 07/05/25 06:59 Cancel Metoprolol Tartrate 25 mg BID PO 07/05/25 10:00 07/12/25 21:47 25 MG Acetaminophen/ Hydrocodone Bitart 1 tab Q4HPRN PRN PO 07/05/25 12:45 07/10/25 09:02 1 TAB Acetaminophen 650 mg Q6HP PRN PO 07/05/25 14:45 Insulin Glargine 15 units HS SC 07/06/25 22:00 07/12/25 21:48 15 UNITS Vancomycin HCl 100 ml @ 100 mls/hr DAILY@1100 IV 07/08/25 11:00 07/12/25 11:45 100 MLS/HR Sodium Chloride 10 ml QSHIFT@, IV 07/08/25 22:00 07/12/25 21:46 10 ML Diagnostic Test (Pha) 1 strip ACHS 07/09/25 11:30 07/12/25 21:47 1 STRIP Insulin Human Regular ACHS SC 07/09/25 11:30 07/12/25 21:48 3 UNITS Dextrose 50 ml UD PRN IV 07/09/25 10:15 Insulin Glargine 10 units QAM SC 07/11/25 07:00 07/12/25 06:03 10 UNITS Cefepime HCl 50 ml @ 12.5 mls/hr Q12H IV 07/12/25 18:00 07/12/25 17:29 12.5 MLS/HR Laboratory Results Laboratory Tests 07/12/25 05:03 Chemistry Test 07/12/25 05:03 Calcium Level 8.6 mg/dL (8.7-10.4) L Urinalysis Test 06/18/25 13:37 07/06/25 23:30 Urine Hyaline Casts Few /lpf (0 - 2) Urine Color Light-yellow (Yellow) Urine Clarity Clear (Clear) Urine pH 6.5 (5.0-9.0) Urine Specific [place] 1.014 (1.001-1.035) Urine Protein 1+ (Negative) H Urine Ketones Negative (Negative) Urine Blood 2+ /uL (Negative) H Urine Nitrite Negative (Negative) Urine Bilirubin Negative (Negative) Urine Urobilinogen Normal mg/dL (Negative) Urine Leukocyte Esterase Negative /uL (Negative) Urine RBC 17 /hpf (0 - 3) Urine Microscopic WBC 6 /HPF (0-3) H Urine Squamous Epithelial Cells Few /hpf (<5) Urine Bacteria None seen /hpf (None Seen) Urine Mucus Few (None Seen) Urine Yeast (Budding) Few /hpf (None Seen) Urine Glucose 4+ mg/dL (Normal) H Microbiology Microbiology Date/Time Source Procedure Growth Status 06/22/25 00:10 Nose MRSA Screen - Final Complete 06/18/25 15:04 Sputum Gram Stain - Final Complete 06/18/25 15:04 Respiratory Culture - Final Klebsiella pneumoniae Leclercia adecarboxylata Enterobacter cloacae Citrobacter farmeri Complete 06/18/25 13:09 Blood Blood Culture - Final NO GROWTH AFTER 5 DAYS OF INCUBATION. Complete Assessment/Plan Assessment/Plan Impression: Acute hypoxic respiratory failure Acute metabolic encephalopathy Pneumonia, likely GNR COVID-19 infection Right foot osteomyelitis Diabetic ketoacidosis Events: Remains on room air Supplemental oxygen PRN No acute overnight events. Continue supportive care Continue antibiotics Incentive spirometry Head of bed elevation Aspiration precautions Wound care Clinimix for nutritional support Accu-Cheks, ISS. Protonix BID for GI ppx. Monitor hemoglobin Labs and imaging reviewed. Rest of plan as noted below. Plan: Supplemental oxygen PRN Titrate to keep O2 sats above 92%. S/p PICC line placement. Continue antibiotics Follow up cultures Hemodynamic monitoring. Supportive care. Monitor hemoglobin Transfuse if less than 7.0 g/dL. Pain control Avoid oversedation Monitor renal function. Monitor electrolytes. Supplement as necessary. Monitor ins and outs. Clinimix for nutritional support Wound care DVT prophylaxis. Prognosis: Guarded given patient's multiple co-morbidities. Rest of plan per hospitalist and other consultants. Thank you, BREANNA Serrato, for allowing me to participate in this patient's care. Further recommendations will depend on the patient's clinical course. Please do not hesitate to contact me if you have any questions or concerns. This medical document was created using an electronic medical record system with [employer] dictation system. Although these documentations are being carefully reviewed, there may still be some phonetic and typographical changes. The errors are purely typographical, due to imperfection on the software program, and do not reflect any compromise in the patient's medical care. Plan discussed with: Patient, Other (GINNA Morales) Date of Service: Jul 12, 2025 Billing Provider: RENAE FLORES MD Common Visit Codes: [id number] INP/OBS CARE(HIGH) RENAE FLORES MD Jul 12, 2025 23:05
[2025-07-13] VITALS (8 sets, daily range): BP systolic 102–124; BP diastolic 68–77; PULSE 73–97; RESP 16–18; TEMP 97.2–98.5; O2SAT 96–100
--- NOTE | 2025-07-13 09:37 | DVHPN2 ---
Subjective Patient more alert today. Denies any symptoms. Reviewed: Care Plan, H&P, Labs, Medications, Previous Orders, Radiology Changes from previous H/P or p: No Changes General: Per HPI Objective Vitals Vital Signs Date Time Temp Pulse Resp B/P (MAP) Pulse Ox O2 Delivery O2 Flow Rate FiO2 07/13/25 08:00 16 Room Air* 0 21 07/13/25 05:00 98.4 78 117/76 (90) 98 98.4 Intake/Output Intake and Output 07/13/25 07:00 Intake Total 785 ml Output Total 1200 ml Balance -415 ml Intake Oral 685 ml IV Total 100 ml Output Urine Total 1200 ml # Bowel Movements 2 General Appearance: Alert, No acute distress, Other HEENT: Atraumatic, Other (right pupil slightly larger than left) Lungs: Clear to auscultation, Other (Decreased air entry bilaterally) Cardiovascular: Regular rate, Normal S1, Normal S2 Abdomen: Normal bowel sounds, Soft, No tenderness Musculoskeletal: Normal sensory function, Normal motor function, Other (bilateral BKA) Extremities: No clubbing, No cyanosis, No edema Neuro: Strength at 5/5 X4 ext, Cranial nerves 3-12 NL Skin: Dry, Intact, Warm Psych/Mental Status: Mental status NL, Mood NL Medications Current Medications Medications Dose Ordered Sig/Philip Route Start Time Stop Time Status Last Admin Dose Admin Dextrose 50 ml UD PRN IV 06/18/25 17:00 Cancel Vancomycin HCl 0 ml @ 0 mls/hr UD IV 06/18/25 20:30 Ondansetron HCl 4 mg Q4HP PRN IV 06/18/25 20:30 Nitroglycerin 0.4 mg Q5MINP PRN SL 06/18/25 20:30 Morphine Sulfate 2 mg Q30M PRN IV 06/18/25 20:30 Pantoprazole Sodium 40 mg BID IV 06/21/25 22:00 07/12/25 21:46 40 MG Morphine Sulfate 1 mg Q4HP PRN IV 07/02/25 10:00 07/04/25 23:25 1 MG Enteral Nutritional Formula 240 ml BIDWM PO 07/04/25 18:00 07/12/25 17:30 240 ML Magnesium Sulfate/ Dextrose 100 ml @ 100 mls/hr Q1HR IV 07/05/25 05:00 07/05/25 06:59 Cancel Metoprolol Tartrate 25 mg BID PO 07/05/25 10:00 07/12/25 21:47 25 MG Acetaminophen/ Hydrocodone Bitart 1 tab Q4HPRN PRN PO 07/05/25 12:45 07/10/25 09:02 1 TAB Acetaminophen 650 mg Q6HP PRN PO 07/05/25 14:45 Insulin Glargine 15 units HS SC 07/06/25 22:00 07/12/25 21:48 15 UNITS Vancomycin HCl 100 ml @ 100 mls/hr DAILY@1100 IV 07/08/25 11:00 07/12/25 11:45 100 MLS/HR Sodium Chloride 10 ml QSHIFT@10,22 IV 07/08/25 22:00 07/12/25 21:46 10 ML Diagnostic Test (Pha) 1 strip ACHS 07/09/25 11:30 07/13/25 06:02 1 STRIP Insulin Human Regular ACHS SC 07/09/25 11:30 07/12/25 21:48 3 UNITS Dextrose 50 ml UD PRN IV 07/09/25 10:15 Insulin Glargine 10 units QAM SC 07/11/25 07:00 07/12/25 06:03 10 UNITS Cefepime HCl 50 ml @ 12.5 mls/hr Q12H IV 07/12/25 18:00 07/13/25 05:45 12.5 MLS/HR Laboratory Results Laboratory Tests 07/12/25 05:03 07/13/25 06:34 Urinalysis Test 06/18/25 13:37 07/06/25 23:30 Urine Hyaline Casts Few /lpf (0 - 2) Urine Color Light-yellow (Yellow) Urine Clarity Clear (Clear) Urine pH 6.5 (5.0-9.0) Urine Specific [place] 1.014 (1.001-1.035) Urine Protein 1+ (Negative) H Urine Ketones Negative (Negative) Urine Blood 2+ /uL (Negative) H Urine Nitrite Negative (Negative) Urine Bilirubin Negative (Negative) Urine Urobilinogen Normal mg/dL (Negative) Urine Leukocyte Esterase Negative /uL (Negative) Urine RBC 17 /hpf (0 - 3) Urine Microscopic WBC 6 /HPF (0-3) H Urine Squamous Epithelial Cells Few /hpf (<5) Urine Bacteria None seen /hpf (None Seen) Urine Mucus Few (None Seen) Urine Yeast (Budding) Few /hpf (None Seen) Urine Glucose 4+ mg/dL (Normal) H Microbiology Microbiology Date/Time Source Procedure Growth Status 06/22/25 00:10 Nose MRSA Screen - Final Complete 06/18/25 15:04 Sputum Gram Stain - Final Complete 06/18/25 15:04 Respiratory Culture - Final Klebsiella pneumoniae Leclercia adecarboxylata Enterobacter cloacae Citrobacter farmeri Complete 06/18/25 13:09 Blood Blood Culture - Final NO GROWTH AFTER 5 DAYS OF INCUBATION. Complete Labs and/or images reviewed: Labs reviewed by me, Image(s) reviewed by me Assessment/Plan Assessment/Plan Impression: -septic shock -right foot osteomyelitis -diabetic ketoacidosis -acute hypoxic respiratory failure -diabetes mellitus -primary hypertension -acute kidney injury -decubitus ulcer -acute delirium -community-acquired pneumonia, Gram-positive and Gram-negative etiology -COVID-19 Plan: Events: Patient awake and following commands. Discussed plan of care with the patient's son. Awaiting change in insurance to her at the 1st of the month for SNF placement. No change in A/P on 07/13/25 -regular insulin sliding scale -Protonix 40 mg daily -continue vancomycin, cefepime -social service consultation for discharge planning to correction facility. -Wound care Total time spent with patient discussing and formulating plan of care: 35 minutes. This medical document was created using an electronic medical record system with [employer] dictation system. Although this document has been carefully reviewed, there may still be some phonetic and typographical errors. These areas are purely typographical due to imperfections of the software programs, and do not reflect any compromise in the patient's medical care. Plan discussed with: Patient, Other (RN) My Orders Orders - MAINE VELAZCO NP Procedure Category Date Status Time Cefepime 2gm/50ml Ns PHA 07/12/25 In Process (Maxipime 2gm/50ml) 18:00 Complete Blood Count LAB 07/14/25 Verified 04:00 Comprehensive LAB 07/14/25 Verified Metabolic Panel 04:00 Date of Service: Jul 13, 2025 Billing Provider: MAINE VELAZCO NP Common Visit Codes: [id number] INP/OBS CARE(HIGH) MAINE VELAZCO NP Jul 13, 2025 09:37
--- NOTE | 2025-07-13 22:25 | DVHPN2 ---
[facility] DOS: 07/13/2025 Patient seen and examined at bedside. Breathing comfortably on room air. Overnight events reviewed HPI: Patient is a 70-year old gentleman with PMHx of dementia, hypertension and diabetes who presented to ED on 06/18/25 with c/o altered mental status and generalized weakness. When EMS arrived on the scene, patient's blood sugar was high, hypotensive with blood pressure 76/40, increased work of breathing, and was given IV fluid normal saline, O2 saturation at 96% en route to our facility ED Was seen in the emergency room, where he was intubated for airway protection and placed on mechanical ventilation. Initial settings AC volume control RR 20, tidal volume 400, PEEP 5, FiO2 100%. Patient was also found to have a markedly elevated blood sugar consistent with DKA and he was started on IV insulin drip. ABG pH 7.05, pCO2 30, pO2 440. Pt also tested positive for COVID-19. Initial ED workup: WBC 26.7, platelets 568, sodium 126, potassium 5.5, BUN 43, creatinine 2 five eight, GFR 34, glucose 852, anion gap 26, acetone > 4.500, calcium 10.2 trending down to 8.4, troponin 31. Chest x-ray revealed no evidence of acute cardiopulmonary process. Patient was admitted for further care. Pulmonary consultation was requested for evaluation and management of acute hypoxic respiratory failure, pneumonia and COVID-19 Past Medical History DM, hypertension and dementia. Past Surgical History BKA (LLE), RLE toe amputation. Medications: Reviewed. Allergies: No known drug allergies. Family History No family history of premature CAD. No family history of lung disorders. Social History: Nonsmoker. No alcohol or illicit drug use. Reviewed: Care Plan, H&P, Labs, Medications, Previous Orders, Radiology Changes from previous H/P or p: No Changes General: Per HPI Objective Vitals Vital Signs Date Time Temp Pulse Resp B/P (MAP) Pulse Ox O2 Delivery O2 Flow Rate FiO2 07/13/25 21:22 92 108/75 07/13/25 21:00 97.6 17 96 97.6 07/13/25 08:00 Room Air* 0 21 Intake/Output Intake and Output 07/13/25 07:00 Intake Total 785 ml Output Total 1200 ml Balance -415 ml Intake Oral 685 ml IV Total 100 ml Output Urine Total 1200 ml # Bowel Movements 2 General Appearance: Alert, No acute distress, Other HEENT: Atraumatic, Other (right pupil slightly larger than left) Lungs: Clear to auscultation, Other (Decreased air entry bilaterally) Cardiovascular: Regular rate, Normal S1, Normal S2 Abdomen: Normal bowel sounds, Soft, No tenderness Musculoskeletal: Normal sensory function, Normal motor function, Other (bilateral BKA) Extremities: No clubbing, No cyanosis, No edema Neuro: Strength at 5/5 X4 ext, Cranial nerves 3-12 NL Skin: Dry, Intact, Warm Psych/Mental Status: Mental status NL, Mood NL Medications Current Medications Medications Dose Ordered Sig/Philip Route Start Time Stop Time Status Last Admin Dose Admin Dextrose 50 ml UD PRN IV 06/18/25 17:00 Cancel Vancomycin HCl 0 ml @ 0 mls/hr UD IV 06/18/25 20:30 Ondansetron HCl 4 mg Q4HP PRN IV 06/18/25 20:30 Nitroglycerin 0.4 mg Q5MINP PRN SL 06/18/25 20:30 Morphine Sulfate 2 mg Q30M PRN IV 06/18/25 20:30 Pantoprazole Sodium 40 mg BID IV 06/21/25 22:00 07/13/25 21:20 40 MG Morphine Sulfate 1 mg Q4HP PRN IV 07/02/25 10:00 07/04/25 23:25 1 MG Enteral Nutritional Formula 240 ml BIDWM PO 07/04/25 18:00 07/13/25 18:00 240 ML Magnesium Sulfate/ Dextrose 100 ml @ 100 mls/hr Q1HR IV 07/05/25 05:00 07/05/25 06:59 Cancel Metoprolol Tartrate 25 mg BID PO 07/05/25 10:00 07/13/25 10:05 25 MG Acetaminophen/ Hydrocodone Bitart 1 tab Q4HPRN PRN PO 07/05/25 12:45 07/13/25 21:21 1 TAB Acetaminophen 650 mg Q6HP PRN PO 07/05/25 14:45 Insulin Glargine 15 units HS SC 07/06/25 22:00 07/12/25 21:48 15 UNITS Vancomycin HCl 100 ml @ 100 mls/hr DAILY@1100 IV 07/08/25 11:00 07/13/25 10:04 100 MLS/HR Sodium Chloride 10 ml QSHIFT@10,22 IV 07/08/25 22:00 07/13/25 21:20 10 ML Diagnostic Test (Pha) 1 strip ACHS 07/09/25 11:30 07/13/25 21:21 1 STRIP Insulin Human Regular ACHS SC 07/09/25 11:30 07/13/25 16:51 6 UNITS Dextrose 50 ml UD PRN IV 07/09/25 10:15 Insulin Glargine 10 units QAM SC 07/11/25 07:00 07/12/25 06:03 10 UNITS Cefepime HCl 50 ml @ 12.5 mls/hr Q12H IV 07/12/25 18:00 07/13/25 18:44 12.5 MLS/HR Laboratory Results Laboratory Tests 07/12/25 05:03 07/13/25 06:34 Urinalysis Test 06/18/25 13:37 07/06/25 23:30 Urine Hyaline Casts Few /lpf (0 - 2) Urine Color Light-yellow (Yellow) Urine Clarity Clear (Clear) Urine pH 6.5 (5.0-9.0) Urine Specific [place] 1.014 (1.001-1.035) Urine Protein 1+ (Negative) H Urine Ketones Negative (Negative) Urine Blood 2+ /uL (Negative) H Urine Nitrite Negative (Negative) Urine Bilirubin Negative (Negative) Urine Urobilinogen Normal mg/dL (Negative) Urine Leukocyte Esterase Negative /uL (Negative) Urine RBC 17 /hpf (0 - 3) Urine Microscopic WBC 6 /HPF (0-3) H Urine Squamous Epithelial Cells Few /hpf (<5) Urine Bacteria None seen /hpf (None Seen) Urine Mucus Few (None Seen) Urine Yeast (Budding) Few /hpf (None Seen) Urine Glucose 4+ mg/dL (Normal) H Microbiology Microbiology Date/Time Source Procedure Growth Status 06/22/25 00:10 Nose MRSA Screen - Final Complete 06/18/25 15:04 Sputum Gram Stain - Final Complete 06/18/25 15:04 Respiratory Culture - Final Klebsiella pneumoniae Leclercia adecarboxylata Enterobacter cloacae Citrobacter farmeri Complete 06/18/25 13:09 Blood Blood Culture - Final NO GROWTH AFTER 5 DAYS OF INCUBATION. Complete Assessment/Plan Assessment/Plan Impression: Acute hypoxic respiratory failure Acute metabolic encephalopathy Pneumonia, likely GNR COVID-19 infection Right foot osteomyelitis Diabetic ketoacidosis Events: Remains on room air Supplemental oxygen PRN No acute overnight events. Continue supportive care Continue antibiotics Incentive spirometry Head of bed elevation Aspiration precautions Wound care Clinimix for nutritional support Accu-Cheks, ISS. Protonix BID for GI ppx. Monitor hemoglobin Awaiting placement. Labs and imaging reviewed. Rest of plan as noted below. Plan: Supplemental oxygen PRN Titrate to keep O2 sats above 92%. S/p PICC line placement. Continue antibiotics Follow up cultures Hemodynamic monitoring. Supportive care. Monitor hemoglobin Transfuse if less than 7.0 g/dL. Pain control Avoid oversedation Monitor renal function. Monitor electrolytes. Supplement as necessary. Monitor ins and outs. Clinimix for nutritional support Wound care DVT prophylaxis. Prognosis: Guarded given patient's multiple co-morbidities. Rest of plan per hospitalist and other consultants. Thank you, BREANNA Serrato, for allowing me to participate in this patient's care. Further recommendations will depend on the patient's clinical course. Please do not hesitate to contact me if you have any questions or concerns. This medical document was created using an electronic medical record system with [employer] computerized dictation system. Although these documentations are being carefully reviewed, there may still be some phonetic and typographical changes. The errors are purely typographical, due to imperfection on the software program, and do not reflect any compromise in the patient's medical care. Plan discussed with: Patient, Other (GINNA Perez) Visit Coding Pulmonary Billing Provider: RENAE FLORES MD Date of Service if different f: Jul 13, 2025 Common Visit Codes: [id number] INP/OBS CARE(HIGH) RENAE FLORES MD Jul 13, 2025 22:25
--- NOTE | 2025-07-13 23:54 | DVHPN2 ---
Progress Note - Dictate Date Seen: Jul 13, 2025 Medical Necessity Reason Pt with a Central, PICC or Fol: No Subjective Patient was seen and evaluated in follow up. Patient is complaining of generalized pain. BS in the 120s. Patient received wound care this evening. Telemetry reviewed. vital signs Vital Sign Date Time Temp Pulse Resp B/P (MAP) Pulse Ox O2 Delivery O2 Flow Rate FiO2 07/13/25 21:22 92 108/75 07/13/25 21:00 97.6 17 96 97.6 07/13/25 20:00 Room Air* 0 21 Total Intake and Output 07/12/25 07/12/25 07/13/25 15:00 23:00 07:00 Intake Total 575 ml 100 ml 110 ml Output Total 600 ml 600 ml Balance 575 ml -500 ml -490 ml medications Current Medications Medications Dose Ordered Sig/Philip Route Start Time Stop Time Status Last Admin Dose Admin Dextrose 50 ml UD PRN IV 06/18/25 17:00 Cancel Vancomycin HCl 0 ml @ 0 mls/hr UD IV 06/18/25 20:30 Ondansetron HCl 4 mg Q4HP PRN IV 06/18/25 20:30 Nitroglycerin 0.4 mg Q5MINP PRN SL 06/18/25 20:30 Morphine Sulfate 2 mg Q30M PRN IV 06/18/25 20:30 Pantoprazole Sodium 40 mg BID IV 06/21/25 22:00 07/13/25 21:20 40 MG Morphine Sulfate 1 mg Q4HP PRN IV 07/02/25 10:00 07/04/25 23:25 1 MG Enteral Nutritional Formula 240 ml BIDWM PO 07/04/25 18:00 07/13/25 18:00 240 ML Magnesium Sulfate/ Dextrose 100 ml @ 100 mls/hr Q1HR IV 07/05/25 05:00 07/05/25 06:59 Cancel Metoprolol Tartrate 25 mg BID PO 07/05/25 10:00 07/13/25 10:05 25 MG Acetaminophen/ Hydrocodone Bitart 1 tab Q4HPRN PRN PO 07/05/25 12:45 07/13/25 21:21 1 TAB Acetaminophen 650 mg Q6HP PRN PO 07/05/25 14:45 Insulin Glargine 15 units HS SC 07/06/25 22:00 07/12/25 21:48 15 UNITS Vancomycin HCl 100 ml @ 100 mls/hr DAILY@1100 IV 07/08/25 11:00 07/13/25 10:04 100 MLS/HR Sodium Chloride 10 ml QSHIFT@10,22 IV 07/08/25 22:00 07/13/25 21:20 10 ML Diagnostic Test (Pha) 1 strip ACHS 07/09/25 11:30 07/13/25 21:21 1 STRIP Insulin Human Regular ACHS SC 07/09/25 11:30 07/13/25 16:51 6 UNITS Dextrose 50 ml UD PRN IV 07/09/25 10:15 Insulin Glargine 10 units QAM SC 07/11/25 07:00 07/12/25 06:03 10 UNITS Cefepime HCl 50 ml @ 12.5 mls/hr Q12H IV 07/12/25 18:00 07/13/25 18:44 12.5 MLS/HR objective GENERAL: Alert and oriented x 3. No acute distress. EYES: PERRL, EOMI. Anicteric. HENT: Moist mucous membranes. LUNGS: Clear to auscultation bilaterally. CARDIOVASCULAR: Regular rate and rhythm. ABDOMEN: Soft, non-tender and non-distended. EXTREMITIES: No edema. NEUROLOGIC: No focal neurological deficits. SKIN: Warm, dry. laboratory and microbiology Laboratory Tests 07/13/25 06:34 07/12/25 05:03 Test 07/12/25 05:03 Range/Units Serum Glucose 149 H 74-106 mg/dL Problem List Preprocedural cardiovascular examination. Acute hypoxic respiratory failure in the setting of COVID pneumonia. Right foot osteomyelitis. Sepsis. Diabetic ketoacidosis. Acute kidney injury, resolved. Dementia. Assessment/Plan Continued all current supportive medical care. Morphine for pain management. IV antibiotics as ordered. GI prophylactics. Metoprolol. Nitro SL. Additional plan as per the hospital course. Dietary Evaluation Review Comments: 1. glucerna 50/hr, along with Propofol 257kcal provide 100% Protein needs and 128% energy needs. Adding Ryder BID will promote wound healing. 2. Continure TF protocol, 3. Reassess when pt is extubated 4. Advance to CCHO-60 diet when pt passes [employer] SALES eval. Expected Outcomes/Goals: gradually healed wound, Avoid catabolic syndrome Plan discussed with: Patient ROSE DURAN MD Jul 13, 2025 23:54
[2025-07-14] VITALS (8 sets, daily range): BP systolic 107–134; BP diastolic 63–84; PULSE 74–92; RESP 16–20; TEMP 97.6–98.4; O2SAT 96–100
[2025-07-14 07:10] LABS: Hematocrit 32.1 % (41.0-53.0); Hemoglobin 10.8 g/dL (13.5-17.5); Mean Corpuscular Hemoglobin 33.7 pg (28.0-32.0); Mean Corpuscular Volume 99.9 fL (80.0-100.0)
[2025-07-14 07:32] LABS: Alanine Aminotransferase 12 U/L (7-40); Albumin 3.3 g/dL (3.2-4.8); Anion Gap 10 (5-15); BUN/Creatinine Ratio 26.3 (10.0-20.0); Carbon Dioxide 22 mmol/L (20-31); Chloride 104 mmol/L (98-107); Potassium 4.2 mmol/L (3.5-5.1); Total Protein 7.0 g/dL (5.7-8.2)
[2025-07-14 07:34] LABS: Alkaline Phosphatase 193 U/L (46-116); Blood Urea Nitrogen 30 mg/dL (9-23); Calcium 8.6 mg/dL (8.7-10.4); Glucose 174 mg/dL (74-106); Sodium 136 mmol/L (136-145)
[2025-07-14 07:38] LABS: Bilirubin, Total 0.7 mg/dL (0.2-1.0)
[2025-07-14 09:26] LABS: Total Cells Counted 100.0 (100)
--- NOTE | 2025-07-14 10:30 | DVHPN2 ---
Subjective Patient more alert today. Denies any symptoms. Reviewed: Care Plan, H&P, Labs, Medications, Previous Orders, Radiology Changes from previous H/P or p: No Changes General: Per HPI Objective Vitals Vital Signs Date Time Temp Pulse Resp B/P (MAP) Pulse Ox O2 Delivery O2 Flow Rate FiO2 07/14/25 08:50 97.6 78 20 118/75 (89) 100 97.6 07/13/25 20:00 Room Air* 0 21 Intake/Output Intake and Output 07/14/25 07:00 Intake Total 845 ml Output Total 900 ml Balance -55 ml Intake Oral 795 ml IV Total 50 ml Output Urine Total 900 ml General Appearance: Alert, Cooperative, No acute distress, Other HEENT: Atraumatic, Other (right pupil slightly larger than left) Lungs: Clear to auscultation, Other (Decreased air entry bilaterally) Cardiovascular: Regular rate, Normal S1, Normal S2 Abdomen: Normal bowel sounds, Soft, No tenderness Musculoskeletal: Normal sensory function, Normal motor function, Other (bilateral BKA) Extremities: No clubbing, No cyanosis, No edema Neuro: Strength at 5/5 X4 ext, Cranial nerves 3-12 NL Skin: Dry, Intact, Warm Psych/Mental Status: Mental status NL, Mood NL Medications Current Medications Medications Dose Ordered Sig/Philip Route Start Time Stop Time Status Last Admin Dose Admin Dextrose 50 ml UD PRN IV 06/18/25 17:00 Cancel Vancomycin HCl 0 ml @ 0 mls/hr UD IV 06/18/25 20:30 Ondansetron HCl 4 mg Q4HP PRN IV 06/18/25 20:30 Nitroglycerin 0.4 mg Q5MINP PRN SL 06/18/25 20:30 Morphine Sulfate 2 mg Q30M PRN IV 06/18/25 20:30 Pantoprazole Sodium 40 mg BID IV 06/21/25 22:00 07/13/25 21:20 40 MG Morphine Sulfate 1 mg Q4HP PRN IV 07/02/25 10:00 07/04/25 23:25 1 MG Enteral Nutritional Formula 240 ml BIDWM PO 07/04/25 18:00 07/13/25 18:00 240 ML Magnesium Sulfate/ Dextrose 100 ml @ 100 mls/hr Q1HR IV 07/05/25 05:00 07/05/25 06:59 Cancel Metoprolol Tartrate 25 mg BID PO 07/05/25 10:00 07/13/25 10:05 25 MG Acetaminophen/ Hydrocodone Bitart 1 tab Q4HPRN PRN PO 07/05/25 12:45 07/14/25 06:19 1 TAB Acetaminophen 650 mg Q6HP PRN PO 07/05/25 14:45 Insulin Glargine 15 units HS SC 07/06/25 22:00 07/12/25 21:48 15 UNITS Vancomycin HCl 100 ml @ 100 mls/hr DAILY@1100 IV 07/08/25 11:00 07/13/25 10:04 100 MLS/HR Sodium Chloride 10 ml QSHIFT@10,22 IV 07/08/25 22:00 07/13/25 21:20 10 ML Diagnostic Test (Pha) 1 strip ACHS 07/09/25 11:30 07/14/25 06:19 1 STRIP Insulin Human Regular ACHS SC 07/09/25 11:30 07/14/25 06:38 3 UNITS Dextrose 50 ml UD PRN IV 07/09/25 10:15 Insulin Glargine 10 units QAM SC 07/11/25 07:00 07/14/25 06:37 10 UNITS Cefepime HCl 50 ml @ 12.5 mls/hr Q12H IV 07/12/25 18:00 07/14/25 06:19 12.5 MLS/HR Laboratory Results Laboratory Tests 07/14/25 06:05 Chemistry Test 07/14/25 06:05 Albumin 3.3 g/dL (3.2-4.8) Calcium Level 8.6 mg/dL (8.7-10.4) L Total Protein 7.0 g/dL (5.7-8.2) LFT Test 07/14/25 06:05 Alanine Aminotransferase (ALT) 12 U/L (7-40) Alkaline Phosphatase 193 U/L (46-116) H Aspartate Amino Transferase (AST) 22 U/L (13-40) Total Bilirubin 0.7 mg/dL (0.2-1.0) Urinalysis Test 06/18/25 13:37 07/06/25 23:30 Urine Hyaline Casts Few /lpf (0 - 2) Urine Color Light-yellow (Yellow) Urine Clarity Clear (Clear) Urine pH 6.5 (5.0-9.0) Urine Specific [place] 1.014 (1.001-1.035) Urine Protein 1+ (Negative) H Urine Ketones Negative (Negative) Urine Blood 2+ /uL (Negative) H Urine Nitrite Negative (Negative) Urine Bilirubin Negative (Negative) Urine Urobilinogen Normal mg/dL (Negative) Urine Leukocyte Esterase Negative /uL (Negative) Urine RBC 17 /hpf (0 - 3) Urine Microscopic WBC 6 /HPF (0-3) H Urine Squamous Epithelial Cells Few /hpf (<5) Urine Bacteria None seen /hpf (None Seen) Urine Mucus Few (None Seen) Urine Yeast (Budding) Few /hpf (None Seen) Urine Glucose 4+ mg/dL (Normal) H Microbiology Microbiology Date/Time Source Procedure Growth Status 06/22/25 00:10 Nose MRSA Screen - Final Complete 06/18/25 15:04 Sputum Gram Stain - Final Complete 06/18/25 15:04 Respiratory Culture - Final Klebsiella pneumoniae Leclercia adecarboxylata Enterobacter cloacae Citrobacter farmeri Complete 06/18/25 13:09 Blood Blood Culture - Final NO GROWTH AFTER 5 DAYS OF INCUBATION. Complete Labs and/or images reviewed: Labs reviewed by me, Image(s) reviewed by me Assessment/Plan Assessment/Plan Impression: -septic shock -right foot osteomyelitis -diabetic ketoacidosis -acute hypoxic respiratory failure -diabetes mellitus -primary hypertension -acute kidney injury -decubitus ulcer -acute delirium -community-acquired pneumonia, Gram-positive and Gram-negative etiology -COVID-19 Plan: Events: Patient awake and following commands. Discussed plan of care with the patient's son. Currently awaiting for insurance change. Change dressing to right BKA. -regular insulin sliding scale -Protonix 40 mg daily -continue vancomycin, cefepime -social service consultation for discharge planning to [facility] facility. -Wound care Total time spent with patient discussing and formulating plan of care: 35 minutes. This medical document was created using an electronic medical record system with [employer] system. Although this document has been carefully reviewed, there may still be some phonetic and typographical errors. These areas are purely typographical due to imperfections of the software programs, and do not reflect any compromise in the patient's medical care. Plan discussed with: Patient, Other (RN) My Orders Orders - MAINE VELAZCO [employer] LOAN ASSISTANT Procedure Category Date Status Time Mrsa Screen TANJA 07/14/25 Uncollected 08:44 Date of Service: Jul 14, 2025 Billing Provider: MAINE VELAZCO NP Common Visit Codes: [id number] INP/OBS CARE(HIGH) MAINE VELAZCO NP Jul 14, 2025 10:30
--- NOTE | 2025-07-14 21:22 | DVHPN2 ---
[facility] DOS: 07/14/2025 Patient seen and examined at bedside. Breathing comfortably on room air. Overnight events reviewed HPI: Patient is a 70-year old gentleman with PMHx of dementia, hypertension and diabetes who presented to ED on 06/18/25 with c/o altered mental status and generalized weakness. When EMS arrived on the scene, patient's blood sugar was high, hypotensive with blood pressure 76/40, increased work of breathing, and was given IV fluid normal saline, O2 saturation at 96% en route to our facility ED Was seen in the emergency room, where he was intubated for airway protection and placed on mechanical ventilation. Initial settings AC volume control RR 20, tidal volume 400, PEEP 5, FiO2 100%. Patient was also found to have a markedly elevated blood sugar consistent with DKA and he was started on IV insulin drip. ABG pH 7.05, pCO2 30, pO2 440. Pt also tested positive for COVID-19. Initial ED workup: WBC 26.7, platelets 568, sodium 126, potassium 5.5, BUN 43, creatinine 2 five eight, GFR 34, glucose 852, anion gap 26, acetone > 4.500, calcium 10.2 trending down to 8.4, troponin 31. Chest x-ray revealed no evidence of acute cardiopulmonary process. Patient was admitted for further care. Pulmonary consultation was requested for evaluation and management of acute hypoxic respiratory failure, pneumonia and COVID-19 Past Medical History DM, hypertension and dementia. Past Surgical History BKA (LLE), RLE toe amputation. Medications: Reviewed. Allergies: No known drug allergies. Family History No family history of premature CAD. No family history of lung disorders. Social History: Nonsmoker. No alcohol or illicit drug use. Reviewed: Care Plan, H&P, Labs, Medications, Previous Orders, Radiology Changes from previous H/P or p: No Changes General: Per HPI Objective Vitals Vital Signs Date Time Temp Pulse Resp B/P (MAP) Pulse Ox O2 Delivery O2 Flow Rate FiO2 07/14/25 21:00 98.4 85 18 112/73 (86) 98 98.4 07/14/25 08:00 Room Air* 0 21 Intake/Output Intake and Output 07/14/25 07:00 Intake Total 845 ml Output Total 900 ml Balance -55 ml Intake Oral 795 ml IV Total 50 ml Output Urine Total 900 ml General Appearance: Alert, Cooperative, No acute distress, Other HEENT: Atraumatic, Other (right pupil slightly larger than left) Lungs: Clear to auscultation, Other (Decreased air entry bilaterally) Cardiovascular: Regular rate, Normal S1, Normal S2 Abdomen: Normal bowel sounds, Soft, No tenderness Musculoskeletal: Normal sensory function, Normal motor function, Other (bilateral BKA) Extremities: No clubbing, No cyanosis, No edema Neuro: Strength at 5/5 X4 ext, Cranial nerves 3-12 NL Skin: Dry, Intact, Warm Psych/Mental Status: Mental status NL, Mood NL Medications Current Medications Medications Dose Ordered Sig/Philip Route Start Time Stop Time Status Last Admin Dose Admin Dextrose 50 ml UD PRN IV 06/18/25 17:00 Cancel Vancomycin HCl 0 ml @ 0 mls/hr UD IV 06/18/25 20:30 Ondansetron HCl 4 mg Q4HP PRN IV 06/18/25 20:30 Nitroglycerin 0.4 mg Q5MINP PRN SL 06/18/25 20:30 Morphine Sulfate 2 mg Q30M PRN IV 06/18/25 20:30 Pantoprazole Sodium 40 mg BID IV 06/21/25 22:00 07/14/25 11:38 40 MG Morphine Sulfate 1 mg Q4HP PRN IV 07/02/25 10:00 07/04/25 23:25 1 MG Enteral Nutritional Formula 240 ml BIDWM PO 07/04/25 18:00 07/14/25 17:21 240 ML Magnesium Sulfate/ Dextrose 100 ml @ 100 mls/hr Q1HR IV 07/05/25 05:00 07/05/25 06:59 Cancel Metoprolol Tartrate 25 mg BID PO 07/05/25 10:00 07/14/25 11:39 25 MG Acetaminophen/ Hydrocodone Bitart 1 tab Q4HPRN PRN PO 07/05/25 12:45 07/14/25 11:49 1 TAB Acetaminophen 650 mg Q6HP PRN PO 07/05/25 14:45 Insulin Glargine 15 units HS SC 07/06/25 22:00 07/12/25 21:48 15 UNITS Vancomycin HCl 100 ml @ 100 mls/hr DAILY@1100 IV 07/08/25 11:00 07/14/25 11:39 100 MLS/HR Sodium Chloride 10 ml QSHIFT@10,22 IV 07/08/25 22:00 07/14/25 10:00 10 ML Diagnostic Test (Pha) 1 strip ACHS 07/09/25 11:30 07/14/25 17:00 1 STRIP Insulin Human Regular ACHS SC 07/09/25 11:30 07/14/25 17:26 6 UNITS Dextrose 50 ml UD PRN IV 07/09/25 10:15 Insulin Glargine 10 units QAM SC 07/11/25 07:00 07/14/25 06:37 10 UNITS Cefepime HCl 50 ml @ 12.5 mls/hr Q12H IV 07/12/25 18:00 07/14/25 17:25 12.5 MLS/HR Laboratory Results Laboratory Tests 07/14/25 06:05 Chemistry Test 07/14/25 06:05 Albumin 3.3 g/dL (3.2-4.8) Calcium Level 8.6 mg/dL (8.7-10.4) L Total Protein 7.0 g/dL (5.7-8.2) LFT Test 07/14/25 06:05 Alanine Aminotransferase (ALT) 12 U/L (7-40) Alkaline Phosphatase 193 U/L (46-116) H Aspartate Amino Transferase (AST) 22 U/L (13-40) Total Bilirubin 0.7 mg/dL (0.2-1.0) Urinalysis Test 06/18/25 13:37 07/06/25 23:30 Urine Hyaline Casts Few /lpf (0 - 2) Urine Color Light-yellow (Yellow) Urine Clarity Clear (Clear) Urine pH 6.5 (5.0-9.0) Urine Specific [place] 1.014 (1.001-1.035) Urine Protein 1+ (Negative) H Urine Ketones Negative (Negative) Urine Blood 2+ /uL (Negative) H Urine Nitrite Negative (Negative) Urine Bilirubin Negative (Negative) Urine Urobilinogen Normal mg/dL (Negative) Urine Leukocyte Esterase Negative /uL (Negative) Urine RBC 17 /hpf (0 - 3) Urine Microscopic WBC 6 /HPF (0-3) H Urine Squamous Epithelial Cells Few /hpf (<5) Urine Bacteria None seen /hpf (None Seen) Urine Mucus Few (None Seen) Urine Yeast (Budding) Few /hpf (None Seen) Urine Glucose 4+ mg/dL (Normal) H Microbiology Microbiology Date/Time Source Procedure Growth Status 06/22/25 00:10 Nose MRSA Screen - Final Complete 06/18/25 15:04 Sputum Gram Stain - Final Complete 06/18/25 15:04 Respiratory Culture - Final Klebsiella pneumoniae Leclercia adecarboxylata Enterobacter cloacae Citrobacter farmeri Complete 06/18/25 13:09 Blood Blood Culture - Final NO GROWTH AFTER 5 DAYS OF INCUBATION. Complete Assessment/Plan Assessment/Plan Impression: Acute hypoxic respiratory failure Acute metabolic encephalopathy Pneumonia, likely GNR COVID-19 infection Right foot osteomyelitis Diabetic ketoacidosis Events: Remains on room air Supplemental oxygen PRN No acute overnight events. Continue supportive care Continue antibiotics Incentive spirometry Head of bed elevation Aspiration precautions Wound care Clinimix for nutritional support Accu-Cheks, ISS. Protonix BID for GI ppx. Monitor hemoglobin Awaiting placement. Labs and imaging reviewed. Rest of plan as noted below. Plan: Supplemental oxygen PRN Titrate to keep O2 sats above 92%. S/p PICC line placement. Continue antibiotics Follow up cultures Hemodynamic monitoring. Supportive care. Monitor hemoglobin Transfuse if less than 7.0 g/dL. Pain control Avoid oversedation Monitor renal function. Monitor electrolytes. Supplement as necessary. Monitor ins and outs. Clinimix for nutritional support Wound care DVT prophylaxis. Prognosis: Guarded given patient's multiple co-morbidities. Rest of plan per hospitalist and other consultants. Thank you, BREANNA Serrato, for allowing me to participate in this patient's care. Further recommendations will depend on the patient's clinical course. Please do not hesitate to contact me if you have any questions or concerns. This medical document was created using an electronic medical record system with [employer] dictation system. Although these documentations are being carefully reviewed, there may still be some phonetic and typographical changes. The errors are purely typographical, due to imperfection on the software program, and do not reflect any compromise in the patient's medical care. Plan discussed with: Patient, Other (GINNA Ruvalcaba) Visit Coding Pulmonary Billing Provider: RENAE FLORES MD Date of Service if different f: Jul 14, 2025 Common Visit Codes: [id number] INP/OBS CARE(HIGH) RENAE FLORES MD Jul 14, 2025 21:21
[2025-07-15] VITALS (7 sets, daily range): BP systolic 106–118; BP diastolic 61–73; PULSE 81–98; RESP 16–17; TEMP 97.7–98.5; O2SAT 94–98
--- NOTE | 2025-07-15 00:01 | DVHPN2 ---
Progress Note - Dictate Date Seen: Jul 14, 2025 Medical Necessity Reason Pt with a Central, PICC or Fol: No Subjective Patient was seen and evaluated in follow up. Patient is complaining of generalized pain. BUN 30, GLUC 285, CA 8.6. CM is arranging SNF placement. Telemetry reviewed. vital signs Vital Sign Date Time Temp Pulse Resp B/P (MAP) Pulse Ox O2 Delivery O2 Flow Rate FiO2 07/14/25 17:00 97.8 74 20 121/74 (90) 99 97.8 07/14/25 08:00 Room Air* 0 21 Total Intake and Output 07/13/25 07/13/25 07/14/25 15:00 23:00 07:00 Intake Total 670 ml 175 ml Output Total 400 ml 500 ml Balance 270 ml -325 ml medications Current Medications Medications Dose Ordered Sig/Philip Route Start Time Stop Time Status Last Admin Dose Admin Dextrose 50 ml UD PRN IV 06/18/25 17:00 Cancel Vancomycin HCl 0 ml @ 0 mls/hr UD IV 06/18/25 20:30 Ondansetron HCl 4 mg Q4HP PRN IV 06/18/25 20:30 Nitroglycerin 0.4 mg Q5MINP PRN SL 06/18/25 20:30 Morphine Sulfate 2 mg Q30M PRN IV 06/18/25 20:30 Pantoprazole Sodium 40 mg BID IV 06/21/25 22:00 07/14/25 11:38 40 MG Morphine Sulfate 1 mg Q4HP PRN IV 07/02/25 10:00 07/04/25 23:25 1 MG Enteral Nutritional Formula 240 ml BIDWM PO 07/04/25 18:00 07/14/25 17:21 240 ML Magnesium Sulfate/ Dextrose 100 ml @ 100 mls/hr Q1HR IV 07/05/25 05:00 07/05/25 06:59 Cancel Metoprolol Tartrate 25 mg BID PO 07/05/25 10:00 07/14/25 11:39 25 MG Acetaminophen/ Hydrocodone Bitart 1 tab Q4HPRN PRN PO 07/05/25 12:45 07/14/25 11:49 1 TAB Acetaminophen 650 mg Q6HP PRN PO 07/05/25 14:45 Insulin Glargine 15 units HS SC 07/06/25 22:00 07/12/25 21:48 15 UNITS Vancomycin HCl 100 ml @ 100 mls/hr DAILY@1100 IV 07/08/25 11:00 07/14/25 11:39 100 MLS/HR Sodium Chloride 10 ml QSHIFT@10,22 IV 07/08/25 22:00 07/14/25 10:00 10 ML Diagnostic Test (Pha) 1 strip ACHS 07/09/25 11:30 07/14/25 17:00 1 STRIP Insulin Human Regular ACHS SC 07/09/25 11:30 07/14/25 17:26 6 UNITS Dextrose 50 ml UD PRN IV 07/09/25 10:15 Insulin Glargine 10 units QAM SC 07/11/25 07:00 07/14/25 06:37 10 UNITS Cefepime HCl 50 ml @ 12.5 mls/hr Q12H IV 07/12/25 18:00 07/14/25 17:25 12.5 MLS/HR objective GENERAL: Alert and oriented x 3. No acute distress. EYES: PERRL, EOMI. Anicteric. HENT: Moist mucous membranes. LUNGS: Clear to auscultation bilaterally. CARDIOVASCULAR: Regular rate and rhythm. ABDOMEN: Soft, non-tender and non-distended. EXTREMITIES: No edema. NEUROLOGIC: No focal neurological deficits. SKIN: Warm, dry. laboratory and microbiology Laboratory Tests 07/14/25 06:05 Test 07/14/25 06:05 Range/Units Serum Glucose 174 H 74-106 mg/dL Problem List Preprocedural cardiovascular examination. Acute hypoxic respiratory failure in the setting of COVID pneumonia. Right foot osteomyelitis. Sepsis. Diabetic ketoacidosis. Acute kidney injury, resolved. Dementia. Assessment/Plan Continued all current supportive medical care. [place] for pain management. IV antibiotics as ordered. GI prophylactics. Metoprolol. Nitro SL. Additional plan as per the hospital course. Dietary Evaluation Review Comments: 1. glucerna 50/hr, along with Propofol 257kcal provide 100% Protein needs and 128% energy needs. Adding Ryder BID will promote wound healing. 2. Continure TF protocol, 3. Reassess when pt is extubated 4. Advance to CCHO-60 diet when pt passes CHANGE MANAGEMENT CONSULTANT eval. Expected Outcomes/Goals: gradually healed wound, Avoid catabolic syndrome Plan discussed with: Patient ROSE DURAN MD Jul 14, 2025 17:38
[2025-07-15] MEDS ORDERED: INSU1INJ15 SC (10:34)
[2025-07-15] MEDS ORDERED: HYDR-4902 PO (10:34)
--- NOTE | 2025-07-15 10:41 | DVHDS2 ---
Discharge Summary Date of Admission Jun 18, 2025 at 20:36 Date of Discharge: Jul 15, 2025 Admitting Diagnosis Diabetic ketoacidosis Labs/Diagnostic Data: Laboratory Results Test 07/15/25 05:47 07/15/25 04:47 07/14/25 10:00 07/14/25 06:05 POC Glucose 120 mg/dl (70-106) Creatinine 1.11 mg/dL (0.700-1.30) Glomerular Filtration Rate Calc 72 mL/min (>90) Vancomycin Level Trough 19.3 ug/mL (5-10) White Blood Count 10.7 10^3/uL (4.4-10.8) Red Blood Count 3.22 10^6/uL (4.5-5.90) Hemoglobin 10.8 g/dL (13.5-17.5) Hematocrit 32.1 % (41.0-53.0) Mean Corpuscular Volume 99.9 fL (80.0-100.0) Mean Corpuscular Hemoglobin 33.7 pg (28.0-32.0) Mean Corpuscular Hemoglobin Concent 33.7 g/dL (32.0-36.0) Red Cell Distribution Width 17.2 % (11.8-14.3) Platelet Count 353 10^3/uL (140-450) Mean Platelet Volume 8.7 fL (6.9-10.8) Neutrophils (%) (Auto) % (37.0-80.0) Lymphocytes (%) (Auto) % (10.0-50.0) Monocytes (%) (Auto) % (0.0-12.0) Basophils (%) (Auto) % (0.0-2.0) Neutrophils # (Auto) 10 ^3/uL (1.6-8.6) Lymphocytes # (Auto) 10 ^3/uL (0.4-5.4) Monocytes # (Auto) 10 ^3/uL (0-1.3) Differential Total Cells Counted 100.0 (100) Neutrophils % (Manual) 60 (37.0-80.0) Band Neutrophils % (Manual) 3 Lymphocytes % (Manual) 25 (10.0-50.0) Monocytes % (Manual) 11 (0-12) Eosinophils % (Manual) 1 (0-7) Basophils % (Manual) 0 (0.0-2.0) Metamyelocytes % (manual) 0 Myelocytes % (Manual) 0 Promyelocytes % (Manual) 0 Blast Cells % (Manual) 0 Reactive Lymphocytes 0 Platelet Estimate Adequate Sodium Level 136 mmol/L (136-145) Potassium Level 4.2 mmol/L (3.5-5.1) Chloride Level 104 mmol/L (98-107) Carbon Dioxide Level 22 mmol/L (20-31) Anion Gap 10 (5-15) Blood Urea Nitrogen 30 mg/dL (9-23) BUN/Creatinine Ratio 26.3 (10.0-20.0) Serum Glucose 174 mg/dL (74-106) Calcium Level 8.6 mg/dL (8.7-10.4) Total Bilirubin 0.7 mg/dL (0.2-1.0) Aspartate Amino Transferase (AST) 22 U/L (13-40) Alanine Aminotransferase (ALT) 12 U/L (7-40) Alkaline Phosphatase 193 U/L (46-116) Total Protein 7.0 g/dL (5.7-8.2) Albumin 3.3 g/dL (3.2-4.8) Test 07/12/25 05:03 07/10/25 06:42 07/09/25 04:47 07/07/25 04:54 Eosinophils (%) (Auto) 2.9 % (0.0-7.0) Eosinophils # (Auto) 0.3 10 ^3/uL (0-0.8) Basophils # (Auto) 0.1 10 ^3/uL (0-0.2) Nucleated Red Blood Cells 0.2 % Hemoglobin A1c 9.8 % A1C (<5.7) Phosphorus Level 2.1 mg/dL (2.4-5.1) Magnesium Level 1.9 mg/dL (1.6-2.6) Prothrombin Time 12.6 sec (9.3-11.8) Prothrombin Time INR 1.21 (0.9-1.15) Activated Partial Thromboplast Time 27.5 SEC (24.5-34.5) Test 07/06/25 23:30 07/05/25 02:52 07/04/25 04:30 07/03/25 04:30 Urine Color Light-yellow (Yellow) Urine Clarity Clear (Clear) Urine pH 6.5 (5.0-9.0) Urine Specific [place] 1.014 (1.001-1.035) Urine Protein 1+ (Negative) Urine Ketones Negative (Negative) Urine Blood 2+ /uL (Negative) Urine Nitrite Negative (Negative) Urine Bilirubin Negative (Negative) Urine Urobilinogen Normal mg/dL (Negative) Urine Leukocyte Esterase Negative /uL (Negative) Urine RBC 17 /hpf (0 - 3) Urine Microscopic WBC 6 /HPF (0-3) Urine Squamous Epithelial Cells Few /hpf (<5) Urine Bacteria None seen /hpf (None Seen) Urine Mucus Few (None Seen) Urine Yeast (Budding) Few /hpf (None Seen) Urine Glucose 4+ mg/dL (Normal) Blood Gas Specimen Type Arterial Blood Gas Sample Site Right brachial Blood Gas Patient Temperature 37.0 Arterial Blood Date Drawn [id number] Arterial Blood pH 7.471 (7.350-7.450) Arterial Blood Partial Pressure CO2 27.5 mmHg (35.0-48.0) Arterial Blood Partial Pressure O2 128.5 mmHg (83.0-108.0) Arterial Blood HCO3 19.6 mmol/L (21.0-28.0) Arterial Blood Oxygen Saturation 98.4 % (94.0-98.0) Arterial Blood Base Excess -3.0 mmol/L (-2.0-3.0) Arterial Blood Oxyhemoglobin 97.6 % (94.0-98.0) Arterial Blood Carboxyhemoglobin 0.3 % (0.5-1.5) Arterial Blood Methemoglobin 0.5 % (0.0-1.5) Vicente Test N/a Blood Gas Total Hemoglobin 10.80 g/dL (13.5-17.5) Blood Gas Modality Nasal cannula Blood Gas Spontaneous Rate 16 FiO2 % 28.0 Estimated GFR () 115 mL/min Estimated GFR (Non- 95 mL/min Triglycerides Level 117 mg/dL (< 150) Test 07/02/25 05:06 07/01/25 09:29 06/30/25 06:02 06/28/25 17:05 Random Vancomycin Level 18.4 ug/mL (5-10) Blood Gas Pressure Support 8 Blood Gas PEEP or CPAP 5.0 Blood Gas Set Respiration Rate 18.0 Blood Gas Tidal Volume 400.0 Thyroid Stimulating Hormone (TSH) 2.16 uIU/mL (0.55-4.78) Test 06/28/25 05:00 06/27/25 10:00 06/22/25 13:21 06/22/25 07:56 Vitamin B12 Level 1816 pg/mL (211-911) Folic Acid 8.18 ng/mL (>5.38) Free Thyroxine (T4) Calculated 0.94 ng/dL (0.89-1.76) SARS-CoV-2 Antigen (Rapid) Positive (NEGATIVE) Erythrocyte Sedimentation Rate 107 mm/hr (0-20) C-Reactive Protein High Sensitivity 16.11 mg/dL (<1.0) Blood Gas Critical Value Read Back Yes Blood Gas Notified Whom vicky Serrato np Blood Gas Notified Time [id number] 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 Test 06/21/25 13:35 06/19/25 07:36 06/18/25 16:25 06/18/25 15:25 Beta-Hydroxybutyric Acid 0.292 mmol/L (< 0.4) Influenza Type A Antigen Negative (Negative) Influenza Type B Antigen Negative (Negative) Troponin I High Sensitivity 55 ng/L (</=54) Lactic Acid Level 2.3 mmol/L (0.4-2.0) Test 06/18/25 13:37 06/18/25 13:09 Urine Hyaline Casts Few /lpf (0 - 2) Hypochromasia (manual) Slight Anisocytosis (manual) Slight Macrocytosis Marked Other Laboratory Tests 07/15/25 04:47 07/14/25 06:05 Brief Hx & Hospital Course: History of Present Illness The patient is a 70-year-old male with past medical history of dementia, diabetes mellitus, and hypertension who presented to [facility] ED with complaint of generalized weakness. Patient's condition progressively get worse, alert oriented x1, so EMS were called. When EMS arrived on the scene, patient's blood sugar rate high, hypotensive, blood pressure 76/40, increased work of breathing, and was given IV fluid normal saline, oxygen O2 saturation at 96% EN route to our facility ED. patient was seen and evaluated in the ED, laboratory data shows WBC 26.7, platelets 568, sodium 126, potassium 5.5, BUN 43, creatinine 2 five eight, GFR 34, glucose 852, anion gap 26, acetone > 4.500, calcium 10.2 trending down to 8.4, troponin 31, blood pressure trending up to 134/63, heart rate 205 trending down to 116, temperature 98.5 F, O2 saturation 95% on oxygen. Patient was found to have diabetes with ketoacidosis, likely septic, hypoxic, life-threatening deterioration, and subsequently intubated. Chest x-ray revealing endotracheal tube tip remains low, proximally 0.2 cm above the level of the alexis, no evidence of acute cardiopulmonary process. Patient was started on IV antibiotic regimen vancomycin, on insulin drip, please see medication orders section in the computer. On my assessment, patient remains fully intubated, no diaphoresis, no diarrhea, no vomiting, no fever, no chills. Patient was admitted for further evaluation and medical management. Course of hospitalization: Patient was recently discharged from the hospital after having right digit amputation of right lower extremity for osteomyelitis. Apparently, the patient was discharged home under hospice care. Patient returned to the hospital in diabetic ketoacidosis, severe metabolic encephalopathy, and acute respiratory failure. Patient was placed on empiric antibiotic therapy. Given the patient gangrene to right foot, discussion was made with the patient's son Sunday regarding resuming hospice care versus full medical modality which includes right lower extremity BKA. He was unable to make this decision and opted for with the hospital staff to have the patient extubated to obtain his consent. The patient had improvement with his DKA, sepsis, and was subsequently extubated from mechanical ventilation. Patient did present with some encephalopathy, but with some improvement in his mentation, discussion was made with the family and patient, who opted for right BKA. Postoperatively the patient has been uneventful. Discussion was made with the family regarding placement in group home facility, but given the patient's HMO and contracted facility the family decided that they did not want to have the patient discharged to the group home facility. PICC line was placed. Patient will be continued on IV antibiotic therapy and be discharged with home health services for wound care and continuation of IV antibiotic therapy. Patient will have new antidiabetic regimen including Lantus b.i.d. as well as sliding scale. This was discussed with the patient as well as son Sunday who is agreeable to have care endorsed to the family. All questions answered. Physical examination General: Alert and Oriented x3. No acute distress. Well-nourished. Eyes: EOMI. Anicteric. HENT: Moist mucous membranes. Lungs: Clear to auscultation bilaterally. No accessory muscle use. Cardiovascular: Regular rate and rhythm. No murmur. No JVD. Abdomen: Soft, non-tender and non-distended. No palpable masses. Extremities: No edema. Non-tender. Right BKA. Surgical Site benign. Left BKA Skin: No rashes or lesions. Warm. Neurologic: No focal neurological deficits. CN II-XII grossly intact, but not individually tested. Psychiatric: Cooperative. Appropriate mood and affect. Total time spent with patient discussing and formulating plan of care: 35 minutes. This medical document was created using an electronic medical record system with [employer] dictation system. Although this document has been carefully reviewed, there may still be some phonetic and typographical errors. These areas are purely typographical due to imperfections of the software programs, and do not reflect any compromise in the patient's medical care. Consults/Reason for consult Podiatry: Right foot gangrene Surgical consultation: Right foot gangrene Operations or Procedures Right BKA Condition at Discharge: Poor Final Diagnosis/Problems List -septic shock -right foot osteomyelitis -diabetic ketoacidosis -acute hypoxic respiratory failure -diabetes mellitus -primary hypertension -acute kidney injury -decubitus ulcer -acute delirium -community-acquired pneumonia, Gram-positive and Gram-negative etiology -COVID-19 Discharge Disposition: Home with Health Services Discharge Instruct/Medications Diet: Consistent carbohydrate Activity: No Restrictions, As Tolerated Follow Up/Referral: Dr. Rios in 1 week PCP in 1 week. Medications: Vancomycin per pharmacy protocol Lantus 15units in am, 10 units in the evening Blood sugar 150 to 250: 2 units Blood sugar 251 to 350: 4 units Blood sugar 351 to 400: 6 units Blood sugar 401 and above: 8 units and go to emergency room Scheduled Cephalexin (Keflex Capsule), 2 CAP PO BID Insulin Regular (Human) (Humulin R U-500 Kwikpen), 2 UNIT SC AC Scheduled PRN Hydrocodone-Acetaminophen (Hydrocodone/Acetaminophen 5-325 mg), 1 TAB PO TIDP PRN Hydrocodone-Acetaminophen (Hydrocodone Bitartrate/AC 5-325 mg), 1 TAB PO Q8HP PRN 36 Discharge Statement: "Patient was advised to return to the ER or call 911 if any headaches, dizziness, shortness of breath, chest pain, abdominal pain, bleeding, fevers, or worsening of medical condition. Patient was counseled about treatment plan, medications, possible side effects, patientverbalized understanding. All questions were answered to the best of my ability. This discharge took greater then 30 minutes in planning, reviewing documentation, counseling the patient, and discussing with other team members." ASSESSMENT ASSESSMENT Assessment Septic Shock Date of Service: Jul 15, 2025 Billing Provider: MAINE SERRATO NP Common Visit Codes: 54787-NJU/OBS DISCH DAY >30min MAINE SERRATO NP Jul 15, 2025 10:41
--- NOTE | 2025-07-15 22:07 | DVHPN2 ---
Progress Note - Dictate Date Seen: Jul 15, 2025 Medical Necessity Reason Pt with a Central, PICC or Fol: No Subjective Patient was seen and evaluated in follow up. Patient is complaining of generalized pain. Patient's family has decided to proceed with HH services. BS are in the 240's. Telemetry reviewed. vital signs Vital Sign Date Time Temp Pulse Resp B/P (MAP) Pulse Ox O2 Delivery O2 Flow Rate FiO2 07/15/25 09:41 95 117/73 07/15/25 09:00 98.5 16 98 98.5 07/15/25 08:00 Room Air* 0 21 Total Intake and Output 07/14/25 07/14/25 07/15/25 15:00 23:00 07:00 Intake Total 150 ml 700 ml 640 ml Output Total 800 ml 1250 ml Balance 150 ml -100 ml -610 ml medications Current Medications Medications Dose Ordered Sig/Philip Route Start Time Stop Time Status Last Admin Dose Admin Dextrose 50 ml UD PRN IV 06/18/25 17:00 Cancel Vancomycin HCl 0 ml @ 0 mls/hr UD IV 06/18/25 20:30 Ondansetron HCl 4 mg Q4HP PRN IV 06/18/25 20:30 Nitroglycerin 0.4 mg Q5MINP PRN SL 06/18/25 20:30 Morphine Sulfate 2 mg Q30M PRN IV 06/18/25 20:30 Pantoprazole Sodium 40 mg BID IV 06/21/25 22:00 07/15/25 09:39 40 MG Morphine Sulfate 1 mg Q4HP PRN IV 07/02/25 10:00 07/04/25 23:25 1 MG Enteral Nutritional Formula 240 ml BIDWM PO 07/04/25 18:00 07/15/25 09:39 240 ML Magnesium Sulfate/ Dextrose 100 ml @ 100 mls/hr Q1HR IV 07/05/25 05:00 07/05/25 06:59 Cancel Metoprolol Tartrate 25 mg BID PO 07/05/25 10:00 07/15/25 09:41 25 MG Acetaminophen/ Hydrocodone Bitart 1 tab Q4HPRN PRN PO 07/05/25 12:45 07/14/25 11:49 1 TAB Acetaminophen 650 mg Q6HP PRN PO 07/05/25 14:45 Insulin Glargine 15 units HS SC 07/06/25 22:00 07/14/25 23:03 15 UNITS Vancomycin HCl 100 ml @ 100 mls/hr DAILY@1100 IV 07/08/25 11:00 07/15/25 10:26 100 MLS/HR Sodium Chloride 10 ml QSHIFT@10,22 IV 07/08/25 22:00 07/15/25 09:39 10 ML Diagnostic Test (Pha) 1 strip ACHS 07/09/25 11:30 07/15/25 11:30 1 STRIP Insulin Human Regular ACHS SC 07/09/25 11:30 07/15/25 11:57 4 UNITS Dextrose 50 ml UD PRN IV 07/09/25 10:15 Insulin Glargine 10 units QAM SC 07/11/25 07:00 07/14/25 06:37 10 UNITS Cefepime HCl 50 ml @ 12.5 mls/hr Q12H IV 07/12/25 18:00 07/15/25 05:36 12.5 MLS/HR objective GENERAL: Alert and oriented x 3. No acute distress. EYES: PERRL, EOMI. Anicteric. HENT: Moist mucous membranes. LUNGS: Clear to auscultation bilaterally. CARDIOVASCULAR: Regular rate and rhythm. ABDOMEN: Soft, non-tender and non-distended. EXTREMITIES: No edema. NEUROLOGIC: No focal neurological deficits. SKIN: Warm, dry. laboratory and microbiology Laboratory Tests 07/15/25 04:47 07/14/25 06:05 Test 07/14/25 06:05 Range/Units Serum Glucose 174 H 74-106 mg/dL Problem List Preprocedural cardiovascular examination. Acute hypoxic respiratory failure in the setting of COVID pneumonia. Right foot osteomyelitis. Sepsis. Diabetic ketoacidosis. Acute kidney injury, resolved. Dementia. Assessment/Plan Continued all current supportive medical care. Tylenol for pain management. IV antibiotics as ordered. GI prophylactics. Metoprolol. Nitro SL. Additional plan as per the hospital course. Dietary Evaluation Review Comments: 1. glucerna 50/hr, along with Propofol 257kcal provide 100% Protein needs and 128% energy needs. Adding Ryder BID will promote wound healing. 2. Continure TF protocol, 3. Reassess when pt is extubated 4. Advance to CCHO-60 diet when pt passes TUB TENDER eval. Expected Outcomes/Goals: gradually healed wound, Avoid catabolic syndrome Plan discussed with: Patient ROSE DURAN MD Jul 15, 2025 12:17
--- NOTE | 2025-07-15 23:40 | DVHPN2 ---
[facility] DOS: 07/15/2025 Patient seen and examined at bedside. Breathing comfortably on room air. Overnight events reviewed HPI: Patient is a 70-year old gentleman with PMHx of dementia, hypertension and diabetes who presented to ED on 06/18/25 with c/o altered mental status and generalized weakness. When EMS arrived on the scene, patient's blood sugar was high, hypotensive with blood pressure 76/40, increased work of breathing, and was given IV fluid normal saline, O2 saturation at 96% en route to our facility ED Was seen in the emergency room, where he was intubated for airway protection and placed on mechanical ventilation. Initial settings AC volume control RR 20, tidal volume 400, PEEP 5, FiO2 100%. Patient was also found to have a markedly elevated blood sugar consistent with DKA and he was started on IV insulin drip. ABG pH 7.05, pCO2 30, pO2 440. Pt also tested positive for COVID-19. Initial ED workup: WBC 26.7, platelets 568, sodium 126, potassium 5.5, BUN 43, creatinine 2 five eight, GFR 34, glucose 852, anion gap 26, acetone > 4.500, calcium 10.2 trending down to 8.4, troponin 31. Chest x-ray revealed no evidence of acute cardiopulmonary process. Patient was admitted for further care. Pulmonary consultation was requested for evaluation and management of acute hypoxic respiratory failure, pneumonia and COVID-19 Past Medical History DM, hypertension and dementia. Past Surgical History BKA (LLE), RLE toe amputation. Medications: Reviewed. Allergies: No known drug allergies. Family History No family history of premature CAD. No family history of lung disorders. Social History: Nonsmoker. No alcohol or illicit drug use. Reviewed: Care Plan, H&P, Labs, Medications, Previous Orders, Radiology Changes from previous H/P or p: No Changes General: Per HPI Objective Vitals Vital Signs Date Time Temp Pulse Resp B/P (MAP) Pulse Ox O2 Delivery O2 Flow Rate FiO2 07/15/25 21:00 98.4 89 17 107/63 (78) 97 98.4 07/15/25 08:00 Room Air* 0 21 Intake/Output Intake and Output 07/15/25 07:00 Intake Total 1490 ml Output Total 2050 ml Balance -560 ml Intake Oral 1340 ml IV Total 150 ml Output Urine Total 2050 ml General Appearance: Alert, Cooperative, No acute distress, Other HEENT: Atraumatic, Other (right pupil slightly larger than left) Lungs: Clear to auscultation, Other (Decreased air entry bilaterally) Cardiovascular: Regular rate, Normal S1, Normal S2 Abdomen: Normal bowel sounds, Soft, No tenderness Musculoskeletal: Normal sensory function, Normal motor function, Other (bilateral BKA) Extremities: No clubbing, No cyanosis, No edema Neuro: Strength at 5/5 X4 ext, Cranial nerves 3-12 NL Skin: Dry, Intact, Warm Psych/Mental Status: Mental status NL, Mood NL Medications Current Medications Medications Dose Ordered Sig/Philip Route Start Time Stop Time Status Last Admin Dose Admin Dextrose 50 ml UD PRN IV 06/18/25 17:00 Cancel Vancomycin HCl 0 ml @ 0 mls/hr UD IV 06/18/25 20:30 Ondansetron HCl 4 mg Q4HP PRN IV 06/18/25 20:30 Nitroglycerin 0.4 mg Q5MINP PRN SL 06/18/25 20:30 Morphine Sulfate 2 mg Q30M PRN IV 06/18/25 20:30 Pantoprazole Sodium 40 mg BID IV 06/21/25 22:00 07/15/25 09:39 40 MG Morphine Sulfate 1 mg Q4HP PRN IV 07/02/25 10:00 07/04/25 23:25 1 MG Enteral Nutritional Formula 240 ml BIDWM PO 07/04/25 18:00 07/15/25 18:02 240 ML Magnesium Sulfate/ Dextrose 100 ml @ 100 mls/hr Q1HR IV 07/05/25 05:00 07/05/25 06:59 Cancel Metoprolol Tartrate 25 mg BID PO 07/05/25 10:00 07/15/25 09:41 25 MG Acetaminophen/ Hydrocodone Bitart 1 tab Q4HPRN PRN PO 07/05/25 12:45 07/14/25 11:49 1 TAB Acetaminophen 650 mg Q6HP PRN PO 07/05/25 14:45 Insulin Glargine 15 units HS SC 07/06/25 22:00 07/14/25 23:03 15 UNITS Vancomycin HCl 100 ml @ 100 mls/hr DAILY@1100 IV 07/08/25 11:00 07/15/25 10:26 100 MLS/HR Sodium Chloride 10 ml QSHIFT@10,22 IV 07/08/25 22:00 07/15/25 09:39 10 ML Diagnostic Test (Pha) 1 strip ACHS 07/09/25 11:30 07/15/25 17:47 1 STRIP Insulin Human Regular ACHS SC 07/09/25 11:30 07/15/25 17:46 4 UNITS Dextrose 50 ml UD PRN IV 07/09/25 10:15 Insulin Glargine 10 units QAM SC 07/11/25 07:00 07/14/25 06:37 10 UNITS Cefepime HCl 50 ml @ 12.5 mls/hr Q12H IV 07/12/25 18:00 07/15/25 18:02 12.5 MLS/HR Laboratory Results Laboratory Tests 07/14/25 06:05 07/15/25 04:47 Urinalysis Test 06/18/25 13:37 07/06/25 23:30 Urine Hyaline Casts Few /lpf (0 - 2) Urine Color Light-yellow (Yellow) Urine Clarity Clear (Clear) Urine pH 6.5 (5.0-9.0) Urine Specific [place] 1.014 (1.001-1.035) Urine Protein 1+ (Negative) H Urine Ketones Negative (Negative) Urine Blood 2+ /uL (Negative) H Urine Nitrite Negative (Negative) Urine Bilirubin Negative (Negative) Urine Urobilinogen Normal mg/dL (Negative) Urine Leukocyte Esterase Negative /uL (Negative) Urine RBC 17 /hpf (0 - 3) Urine Microscopic WBC 6 /HPF (0-3) H Urine Squamous Epithelial Cells Few /hpf (<5) Urine Bacteria None seen /hpf (None Seen) Urine Mucus Few (None Seen) Urine Yeast (Budding) Few /hpf (None Seen) Urine Glucose 4+ mg/dL (Normal) H Microbiology Microbiology Date/Time Source Procedure Growth Status 07/14/25 10:00 Nose MRSA Screen - Final Complete 06/18/25 15:04 Sputum Gram Stain - Final Complete 06/18/25 15:04 Respiratory Culture - Final Klebsiella pneumoniae Leclercia adecarboxylata Enterobacter cloacae Citrobacter farmeri Complete 06/18/25 13:09 Blood Blood Culture - Final NO GROWTH AFTER 5 DAYS OF INCUBATION. Complete Assessment/Plan Assessment/Plan Impression: Acute hypoxic respiratory failure Acute metabolic encephalopathy Pneumonia, likely GNR COVID-19 infection Right foot osteomyelitis Diabetic ketoacidosis Events: Remains on room air Supplemental oxygen PRN BS noted to be in 240s Accu-Cheks, ISS PRN Continue supportive care Continue antibiotics Incentive spirometry Head of bed elevation Aspiration precautions Wound care Clinimix for nutritional support Protonix BID for GI ppx. Monitor hemoglobin Awaiting placement. Labs and imaging reviewed. Rest of plan as noted below. Plan: Supplemental oxygen PRN Titrate to keep O2 sats above 92%. S/p PICC line placement. Continue antibiotics Follow up cultures Hemodynamic monitoring. Supportive care. Monitor hemoglobin Transfuse if less than 7.0 g/dL. Pain control Avoid oversedation Monitor renal function. Monitor electrolytes. Supplement as necessary. Monitor ins and outs. Clinimix for nutritional support Wound care DVT prophylaxis. Prognosis: Guarded given patient's multiple co-morbidities. Rest of plan per hospitalist and other consultants. Thank you, BREANNA Serrato, for allowing me to participate in this patient's care. Further recommendations will depend on the patient's clinical course. Please do not hesitate to contact me if you have any questions or concerns. This medical document was created using an electronic medical record system with [employer] dictation system. Although these documentations are being carefully reviewed, there may still be some phonetic and typographical changes. The errors are purely typographical, due to imperfection on the software program, and do not reflect any compromise in the patient's medical care. Plan discussed with: Patient, Other (RN) Visit Coding Pulmonary Billing Provider: RENAE FLORES MD Date of Service if different f: Jul 15, 2025 Common Visit Codes: 55530-[id number] INP/OBS CARE(HIGH) RENAE FLORES MD Jul 15, 2025 23:40
[2025-07-16] VITALS (8 sets, daily range): BP systolic 97–113; BP diastolic 61–76; PULSE 76–90; RESP 16–20; TEMP 97.7–98.9; O2SAT 96–99
--- NOTE | 2025-07-16 10:44 | DVHPN2 ---
Subjective Patient more alert today. Denies any symptoms. Reviewed: Care Plan, H&P, Labs, Medications, Previous Orders, Radiology Changes from previous H/P or p: No Changes General: Per HPI Objective Vitals Vital Signs Date Time Temp Pulse Resp B/P (MAP) Pulse Ox O2 Delivery O2 Flow Rate FiO2 07/16/25 09:56 86 109/63 07/16/25 08:45 98.9 20 96 98.9 07/15/25 20:00 Room Air* 0 21 Intake/Output Intake and Output 07/16/25 07:00 Intake Total 1425 ml Output Total 1100 ml Balance 325 ml Intake Oral 1375 ml IV Total 50 ml Output Urine Total 1100 ml General Appearance: Alert, Cooperative, No acute distress, Other HEENT: Atraumatic, Other (right pupil slightly larger than left) Lungs: Clear to auscultation, Other (Decreased air entry bilaterally) Cardiovascular: Regular rate, Normal S1, Normal S2 Abdomen: Normal bowel sounds, Soft, No tenderness Musculoskeletal: Normal sensory function, Normal motor function, Other (bilateral BKA) Extremities: No clubbing, No cyanosis, No edema Neuro: Strength at 5/5 X4 ext, Cranial nerves 3-12 NL Skin: Dry, Intact, Warm Psych/Mental Status: Mental status NL, Mood NL Medications Current Medications Medications Dose Ordered Sig/Philip Route Start Time Stop Time Status Last Admin Dose Admin Dextrose 50 ml UD PRN IV 06/18/25 17:00 Cancel Vancomycin HCl 0 ml @ 0 mls/hr UD IV 06/18/25 20:30 Ondansetron HCl 4 mg Q4HP PRN IV 06/18/25 20:30 Nitroglycerin 0.4 mg Q5MINP PRN SL 06/18/25 20:30 Morphine Sulfate 2 mg Q30M PRN IV 06/18/25 20:30 Pantoprazole Sodium 40 mg BID IV 06/21/25 22:00 07/16/25 09:56 40 MG Morphine Sulfate 1 mg Q4HP PRN IV 07/02/25 10:00 07/04/25 23:25 1 MG Enteral Nutritional Formula 240 ml BIDWM PO 07/04/25 18:00 07/15/25 18:02 240 ML Magnesium Sulfate/ Dextrose 100 ml @ 100 mls/hr Q1HR IV 07/05/25 05:00 07/05/25 06:59 Cancel Metoprolol Tartrate 25 mg BID PO 07/05/25 10:00 07/16/25 09:56 25 MG Acetaminophen/ Hydrocodone Bitart 1 tab Q4HPRN PRN PO 07/05/25 12:45 07/14/25 11:49 1 TAB Acetaminophen 650 mg Q6HP PRN PO 07/05/25 14:45 Insulin Glargine 15 units HS SC 07/06/25 22:00 07/16/25 01:09 15 UNITS Vancomycin HCl 100 ml @ 100 mls/hr DAILY@1100 IV 07/08/25 11:00 07/15/25 10:26 100 MLS/HR Sodium Chloride 10 ml QSHIFT@10,22 IV 07/08/25 22:00 07/16/25 09:56 10 ML Diagnostic Test (Pha) 1 strip ACHS 07/09/25 11:30 07/16/25 07:13 1 STRIP Insulin Human Regular ACHS SC 07/09/25 11:30 07/16/25 07:10 4 UNITS Dextrose 50 ml UD PRN IV 07/09/25 10:15 Insulin Glargine 10 units QAM SC 07/11/25 07:00 07/16/25 07:11 10 UNITS Cefepime HCl 50 ml @ 12.5 mls/hr Q12H IV 07/12/25 18:00 07/16/25 06:22 12.5 MLS/HR Laboratory Results Laboratory Tests 07/14/25 06:05 07/16/25 04:34 Urinalysis Test 06/18/25 13:37 07/06/25 23:30 Urine Hyaline Casts Few /lpf (0 - 2) Urine Color Light-yellow (Yellow) Urine Clarity Clear (Clear) Urine pH 6.5 (5.0-9.0) Urine Specific [place] 1.014 (1.001-1.035) Urine Protein 1+ (Negative) H Urine Ketones Negative (Negative) Urine Blood 2+ /uL (Negative) H Urine Nitrite Negative (Negative) Urine Bilirubin Negative (Negative) Urine Urobilinogen Normal mg/dL (Negative) Urine Leukocyte Esterase Negative /uL (Negative) Urine RBC 17 /hpf (0 - 3) Urine Microscopic WBC 6 /HPF (0-3) H Urine Squamous Epithelial Cells Few /hpf (<5) Urine Bacteria None seen /hpf (None Seen) Urine Mucus Few (None Seen) Urine Yeast (Budding) Few /hpf (None Seen) Urine Glucose 4+ mg/dL (Normal) H Microbiology Microbiology Date/Time Source Procedure Growth Status 07/14/25 10:00 Nose MRSA Screen - Final Complete 06/18/25 15:04 Sputum Gram Stain - Final Complete 06/18/25 15:04 Respiratory Culture - Final Klebsiella pneumoniae Leclercia adecarboxylata Enterobacter cloacae Citrobacter farmeri Complete 06/18/25 13:09 Blood Blood Culture - Final NO GROWTH AFTER 5 DAYS OF INCUBATION. Complete Labs and/or images reviewed: Labs reviewed by me, Image(s) reviewed by me Assessment/Plan Assessment/Plan Impression: -septic shock -right foot osteomyelitis -diabetic ketoacidosis -acute hypoxic respiratory failure -diabetes mellitus -primary hypertension -acute kidney injury -decubitus ulcer -acute delirium -community-acquired pneumonia, Gram-positive and Gram-negative etiology -COVID-19 Plan: Events: No events overnight. Still pending Home health service antibiotics -regular insulin sliding scale -Protonix 40 mg daily -continue vancomycin, cefepime -social service consultation for discharge planning with [facility] -Wound care Total time spent with patient discussing and formulating plan of care: 35 minutes. This medical document was created using an electronic medical record system with [employer] dictation system. Although this document has been carefully reviewed, there may still be some phonetic and typographical errors. These areas are purely typographical due to imperfections of the software programs, and do not reflect any compromise in the patient's medical care. Plan discussed with: Patient, Other (RN) My Orders Orders - MAINE VELAZCO NP Procedure Category Date Status Time Ss Consult To Arrange [facility] [place] 07/15/25 In Process Home Iv 12:28 Date of Service: Jul 16, 2025 Billing Provider: MAINE VELAZCO NP Common Visit Codes: [id number] INP/OBS CARE(HIGH) MAINE VELAZCO NP Jul 16, 2025 10:44
--- NOTE | 2025-07-16 14:18 | DVHPN2 ---
Progress Note - Dictate Date Seen: Jul 16, 2025 Medical Necessity Reason Pt with a Central, PICC or Fol: No vital signs Vital Sign Date Time Temp Pulse Resp B/P (MAP) Pulse Ox O2 Delivery O2 Flow Rate FiO2 07/16/25 12:49 98.8 79 20 103/64 (77) 97 98.8 07/16/25 08:00 Room Air* 0 21 Total Intake and Output 07/15/25 07/15/25 07/16/25 15:00 23:00 07:00 Intake Total 700 ml 725 ml Output Total 450 ml 650 ml Balance 250 ml 75 ml medications Current Medications Medications Dose Ordered Sig/Philip Route Start Time Stop Time Status Last Admin Dose Admin Dextrose 50 ml UD PRN IV 06/18/25 17:00 Cancel Vancomycin HCl 0 ml @ 0 mls/hr UD IV 06/18/25 20:30 Ondansetron HCl 4 mg Q4HP PRN IV 06/18/25 20:30 Nitroglycerin 0.4 mg Q5MINP PRN SL 06/18/25 20:30 Morphine Sulfate 2 mg Q30M PRN IV 06/18/25 20:30 Pantoprazole Sodium 40 mg BID IV 06/21/25 22:00 07/16/25 09:56 40 MG Morphine Sulfate 1 mg Q4HP PRN IV 07/02/25 10:00 07/04/25 23:25 1 MG Enteral Nutritional Formula 240 ml BIDWM PO 07/04/25 18:00 07/16/25 08:00 240 ML Magnesium Sulfate/ Dextrose 100 ml @ 100 mls/hr Q1HR IV 07/05/25 05:00 07/05/25 06:59 Cancel Metoprolol Tartrate 25 mg BID PO 07/05/25 10:00 07/16/25 09:56 25 MG Acetaminophen/ Hydrocodone Bitart 1 tab Q4HPRN PRN PO 07/05/25 12:45 07/16/25 11:31 1 TAB Acetaminophen 650 mg Q6HP PRN PO 07/05/25 14:45 Insulin Glargine 15 units HS SC 07/06/25 22:00 07/16/25 01:09 15 UNITS Vancomycin HCl 100 ml @ 100 mls/hr DAILY@1100 IV 07/08/25 11:00 07/16/25 11:26 100 MLS/HR Sodium Chloride 10 ml QSHIFT@10,22 IV 07/08/25 22:00 07/16/25 09:56 10 ML Diagnostic Test (Pha) 1 strip ACHS 07/09/25 11:30 07/16/25 11:30 1 STRIP Insulin Human Regular ACHS SC 07/09/25 11:30 07/16/25 12:02 4 UNITS Dextrose 50 ml UD PRN IV 07/09/25 10:15 Insulin Glargine 10 units QAM SC 07/11/25 07:00 07/16/25 07:11 10 UNITS Cefepime HCl 50 ml @ 12.5 mls/hr Q12H IV 07/12/25 18:00 07/16/25 06:22 12.5 MLS/HR laboratory and microbiology Laboratory Tests 07/16/25 04:34 07/14/25 06:05 Test 07/14/25 06:05 Range/Units Serum Glucose 174 H 74-106 mg/dL Assessment/Plan Impression Acute hypoxic respiratory failure Acute metabolic encephalopathy Pneumonia, likely GNR COVID-19 infection Right foot osteomyelitis Diabetic ketoacidosis Events: Remains on room air Supplemental oxygen PRN Plan: Supplemental oxygen PRN Titrate to keep O2 sats above 92%. S/p PICC line placement. Continue antibiotics Follow up cultures Hemodynamic monitoring. Supportive care. Monitor hemoglobin Transfuse if less than 7.0 g/dL. Pain control Avoid oversedation Monitor renal function. Monitor electrolytes. Supplement as necessary. Monitor ins and outs. Clinimix for nutritional support Wound care DVT prophylaxis. Dietary Evaluation Review Comments: 1. glucerna 50/hr, along with Propofol 257kcal provide 100% Protein needs and 128% energy needs. Adding Ryder BID will promote wound healing. 2. Continure TF protocol, 3. Reassess when pt is extubated 4. Advance to CCHO-60 diet when pt passes FINANCIAL BUSINESS ANALYST eval. Expected Outcomes/Goals: gradually healed wound, Avoid catabolic syndrome Plan discussed with: Patient BANDAR CARTWRIGHT MD Jul 16, 2025 14:18
--- NOTE | 2025-07-16 23:13 | DVHPN2 ---
Progress Note - Dictate Date Seen: Jul 16, 2025 Medical Necessity Reason Pt with a Central, PICC or Fol: No Subjective Patient was seen and evaluated in follow up. Patient is complaining of generalized pain. CM is working on arranging services. BS are in the 200's. Telemetry reviewed. vital signs Vital Sign Date Time Temp Pulse Resp B/P (MAP) Pulse Ox O2 Delivery O2 Flow Rate FiO2 07/16/25 10:56 79 110/61 07/16/25 08:45 98.9 20 96 98.9 07/15/25 20:00 Room Air* 0 21 Total Intake and Output 07/15/25 07/15/25 07/16/25 15:00 23:00 07:00 Intake Total 700 ml 725 ml Output Total 450 ml 650 ml Balance 250 ml 75 ml medications Current Medications Medications Dose Ordered Sig/Philip Route Start Time Stop Time Status Last Admin Dose Admin Dextrose 50 ml UD PRN IV 06/18/25 17:00 Cancel Vancomycin HCl 0 ml @ 0 mls/hr UD IV 06/18/25 20:30 Ondansetron HCl 4 mg Q4HP PRN IV 06/18/25 20:30 Nitroglycerin 0.4 mg Q5MINP PRN SL 06/18/25 20:30 Morphine Sulfate 2 mg Q30M PRN IV 06/18/25 20:30 Pantoprazole Sodium 40 mg BID IV 06/21/25 22:00 07/16/25 09:56 40 MG Morphine Sulfate 1 mg Q4HP PRN IV 07/02/25 10:00 07/04/25 23:25 1 MG Enteral Nutritional Formula 240 ml BIDWM PO 07/04/25 18:00 07/16/25 08:00 240 ML Magnesium Sulfate/ Dextrose 100 ml @ 100 mls/hr Q1HR IV 07/05/25 05:00 07/05/25 06:59 Cancel Metoprolol Tartrate 25 mg BID PO 07/05/25 10:00 07/16/25 09:56 25 MG Acetaminophen/ Hydrocodone Bitart 1 tab Q4HPRN PRN PO 07/05/25 12:45 07/16/25 11:31 1 TAB Acetaminophen 650 mg Q6HP PRN PO 07/05/25 14:45 Insulin Glargine 15 units HS SC 07/06/25 22:00 07/16/25 01:09 15 UNITS Vancomycin HCl 100 ml @ 100 mls/hr DAILY@1100 IV 07/08/25 11:00 07/16/25 11:26 100 MLS/HR Sodium Chloride 10 ml QSHIFT@10,22 IV 07/08/25 22:00 07/16/25 09:56 10 ML Diagnostic Test (Pha) 1 strip ACHS 07/09/25 11:30 07/16/25 07:13 1 STRIP Insulin Human Regular ACHS SC 07/09/25 11:30 07/16/25 07:10 4 UNITS Dextrose 50 ml UD PRN IV 07/09/25 10:15 Insulin Glargine 10 units QAM SC 07/11/25 07:00 07/16/25 07:11 10 UNITS Cefepime HCl 50 ml @ 12.5 mls/hr Q12H IV 07/12/25 18:00 07/16/25 06:22 12.5 MLS/HR objective GENERAL: Alert and oriented x 3. No acute distress. EYES: PERRL, EOMI. Anicteric. HENT: Moist mucous membranes. LUNGS: Clear to auscultation bilaterally. CARDIOVASCULAR: Regular rate and rhythm. ABDOMEN: Soft, non-tender and non-distended. EXTREMITIES: No edema. NEUROLOGIC: No focal neurological deficits. SKIN: Warm, dry. laboratory and microbiology Laboratory Tests 07/16/25 04:34 07/14/25 06:05 Test 07/14/25 06:05 Range/Units Serum Glucose 174 H 74-106 mg/dL Problem List Preprocedural cardiovascular examination. Acute hypoxic respiratory failure in the setting of COVID pneumonia. Right foot osteomyelitis. Sepsis. Diabetic ketoacidosis. Acute kidney injury, resolved. Dementia. Assessment/Plan Continued all current supportive medical care. Tylenol and [place] for pain management. IV antibiotics as ordered. GI prophylactics. Metoprolol. Nitro SL. Additional plan as per the hospital course. Dietary Evaluation Review Comments: 1. glucerna 50/hr, along with Propofol 257kcal provide 100% Protein needs and 128% energy needs. Adding Ryder BID will promote wound healing. 2. Continure TF protocol, 3. Reassess when pt is extubated 4. Advance to CCHO-60 diet when pt passes CHARGE ACCOUNT CLERK eval. Expected Outcomes/Goals: gradually healed wound, Avoid catabolic syndrome Plan discussed with: Patient DURAN,MUKESHCHANDRA M MD Jul 16, 2025 12:04
[2025-07-17] VITALS (8 sets, daily range): BP systolic 100–136; BP diastolic 54–76; PULSE 72–105; RESP 16–18; TEMP 97.4–98.7; O2SAT 97–100
[2025-07-17 06:53] LABS: Hematocrit 31.3 % (41.0-53.0); Hemoglobin 10.6 g/dL (13.5-17.5); Mean Corpuscular Hemoglobin 33.9 pg (28.0-32.0); Mean Corpuscular Volume 100.2 fL (80.0-100.0); Nucleated Red Blood Cells % 0.1 %
[2025-07-17] MEDS ORDERED: INSUINJ37 SC (10:04)
--- NOTE | 2025-07-17 10:05 | DVHPN2 ---
Subjective Patient more alert today. Denies any symptoms. Reviewed: Care Plan, H&P, Labs, Medications, Previous Orders, Radiology Changes from previous H/P or p: No Changes General: Per HPI Objective Vitals Vital Signs Date Time Temp Pulse Resp B/P (MAP) Pulse Ox O2 Delivery O2 Flow Rate FiO2 07/17/25 09:48 81 98/57 07/17/25 07:45 Room Air* 0 21 07/17/25 05:00 97.4 18 97 97.4 Intake/Output Intake and Output 07/17/25 07:00 Intake Total 645 ml Output Total 1000 ml Balance -355 ml Intake Oral 495 ml IV Total 150 ml Output Urine Total 1000 ml # Bowel Movements 3 General Appearance: Alert, Cooperative, No acute distress, Other HEENT: Atraumatic, Other (right pupil slightly larger than left) Lungs: Clear to auscultation, Other (Decreased air entry bilaterally) Cardiovascular: Regular rate, Normal S1, Normal S2 Abdomen: Normal bowel sounds, Soft, No tenderness Musculoskeletal: Normal sensory function, Normal motor function, Other (bilateral BKA) Extremities: No clubbing, No cyanosis, No edema Neuro: Strength at 5/5 X4 ext, Cranial nerves 3-12 NL Skin: Dry, Intact, Warm Psych/Mental Status: Mental status NL, Mood NL Medications Current Medications Medications Dose Ordered Sig/Philip Route Start Time Stop Time Status Last Admin Dose Admin Dextrose 50 ml UD PRN IV 06/18/25 17:00 Cancel Vancomycin HCl 0 ml @ 0 mls/hr UD IV 06/18/25 20:30 Ondansetron HCl 4 mg Q4HP PRN IV 06/18/25 20:30 Nitroglycerin 0.4 mg Q5MINP PRN SL 06/18/25 20:30 Morphine Sulfate 2 mg Q30M PRN IV 06/18/25 20:30 Pantoprazole Sodium 40 mg BID IV 06/21/25 22:00 07/17/25 09:48 40 MG Morphine Sulfate 1 mg Q4HP PRN IV 07/02/25 10:00 07/04/25 23:25 1 MG Enteral Nutritional Formula 240 ml BIDWM PO 07/04/25 18:00 07/17/25 08:16 240 ML Magnesium Sulfate/ Dextrose 100 ml @ 100 mls/hr Q1HR IV 07/05/25 05:00 07/05/25 06:59 Cancel Metoprolol Tartrate 25 mg BID PO 07/05/25 10:00 07/16/25 22:04 25 MG Acetaminophen/ Hydrocodone Bitart 1 tab Q4HPRN PRN PO 07/05/25 12:45 07/16/25 11:31 1 TAB Acetaminophen 650 mg Q6HP PRN PO 07/05/25 14:45 Insulin Glargine 15 units HS SC 07/06/25 22:00 07/16/25 22:02 15 UNITS Vancomycin HCl 100 ml @ 100 mls/hr DAILY@1100 IV 07/08/25 11:00 07/16/25 11:26 100 MLS/HR Sodium Chloride 10 ml QSHIFT@ IV 07/08/25 22:00 07/17/25 09:48 10 ML Diagnostic Test (Pha) 1 strip ACHS 07/09/25 11:30 07/17/25 06:19 1 STRIP Insulin Human Regular ACHS SC 07/09/25 11:30 07/16/25 22:01 2 UNITS Dextrose 50 ml UD PRN IV 07/09/25 10:15 Insulin Glargine 10 units QAM SC 07/11/25 07:00 07/16/25 07:11 10 UNITS Cefepime HCl 50 ml @ 12.5 mls/hr Q12H IV 07/12/25 18:00 07/17/25 06:14 12.5 MLS/HR Laboratory Results Laboratory Tests 07/14/25 06:05 07/17/25 05:52 Urinalysis Test 06/18/25 13:37 07/06/25 23:30 Urine Hyaline Casts Few /lpf (0 - 2) Urine Color Light-yellow (Yellow) Urine Clarity Clear (Clear) Urine pH 6.5 (5.0-9.0) Urine Specific [place] 1.014 (1.001-1.035) Urine Protein 1+ (Negative) H Urine Ketones Negative (Negative) Urine Blood 2+ /uL (Negative) H Urine Nitrite Negative (Negative) Urine Bilirubin Negative (Negative) Urine Urobilinogen Normal mg/dL (Negative) Urine Leukocyte Esterase Negative /uL (Negative) Urine RBC 17 /hpf (0 - 3) Urine Microscopic WBC 6 /HPF (0-3) H Urine Squamous Epithelial Cells Few /hpf (<5) Urine Bacteria None seen /hpf (None Seen) Urine Mucus Few (None Seen) Urine Yeast (Budding) Few /hpf (None Seen) Urine Glucose 4+ mg/dL (Normal) H Microbiology Microbiology Date/Time Source Procedure Growth Status 07/14/25 10:00 Nose MRSA Screen - Final Complete 06/18/25 15:04 Sputum Gram Stain - Final Complete 06/18/25 15:04 Respiratory Culture - Final Klebsiella pneumoniae Leclercia adecarboxylata Enterobacter cloacae Citrobacter farmeri Complete 06/18/25 13:09 Blood Blood Culture - Final NO GROWTH AFTER 5 DAYS OF INCUBATION. Complete Labs and/or images reviewed: Labs reviewed by me, Image(s) reviewed by me Assessment/Plan Assessment/Plan Impression: -septic shock -right foot osteomyelitis -diabetic ketoacidosis -acute hypoxic respiratory failure -diabetes mellitus -primary hypertension -acute kidney injury -decubitus ulcer -acute delirium -community-acquired pneumonia, Gram-positive and Gram-negative etiology -COVID-19 Plan: Events: No events overnight. Still pending Home health service antibiotics. Blood pressure and blood sugars low normal levels today. Instructed primary nurse to make sure patient has been fed. -regular insulin sliding scale -Protonix 40 mg daily -continue vancomycin, cefepime -social service consultation for discharge planning with [facility] -Wound care Total time spent with patient discussing and formulating plan of care: 35 minutes. This medical document was created using an electronic medical record system with [employer] dictation system. Although this document has been carefully reviewed, there may still be some phonetic and typographical errors. These areas are purely typographical due to imperfections of the software programs, and do not reflect any compromise in the patient's medical care. Plan discussed with: Patient, Other (RN) Date of Service: Jul 17, 2025 Billing Provider: MAINE VELAZCO NP Common Visit Codes: [id number] INP/OBS CARE(HIGH) MAINE VELAZCO NP Jul 17, 2025 10:05
--- NOTE | 2025-07-17 17:41 | DVHPN2 ---
Progress Note - Dictate Date Seen: Jul 17, 2025 Medical Necessity Reason Pt with a Central, PICC or Fol: No Subjective Patient was seen and evaluated in follow up. No overnight events. Patient denies any complaints. Patient is receiving wound care. WBC 12.3. Telemetry reviewed. vital signs Vital Sign Date Time Temp Pulse Resp B/P (MAP) Pulse Ox O2 Delivery O2 Flow Rate FiO2 07/17/25 09:48 81 98/57 07/17/25 09:00 98.2 16 97 98.2 07/17/25 07:45 Room Air* 0 21 Total Intake and Output 07/16/25 07/16/25 07/17/25 15:00 23:00 07:00 Intake Total 150 ml 215 ml 280 ml Output Total 300 ml 700 ml Balance 150 ml -85 ml -420 ml medications Current Medications Medications Dose Ordered Sig/Philip Route Start Time Stop Time Status Last Admin Dose Admin Dextrose 50 ml UD PRN IV 06/18/25 17:00 Cancel Vancomycin HCl 0 ml @ 0 mls/hr UD IV 06/18/25 20:30 Ondansetron HCl 4 mg Q4HP PRN IV 06/18/25 20:30 Nitroglycerin 0.4 mg Q5MINP PRN SL 06/18/25 20:30 Morphine Sulfate 2 mg Q30M PRN IV 06/18/25 20:30 Pantoprazole Sodium 40 mg BID IV 06/21/25 22:00 07/17/25 09:48 40 MG Morphine Sulfate 1 mg Q4HP PRN IV 07/02/25 10:00 07/04/25 23:25 1 MG Enteral Nutritional Formula 240 ml BIDWM PO 07/04/25 18:00 07/17/25 08:16 240 ML Magnesium Sulfate/ Dextrose 100 ml @ 100 mls/hr Q1HR IV 07/05/25 05:00 07/05/25 06:59 Cancel Metoprolol Tartrate 25 mg BID PO 07/05/25 10:00 07/16/25 22:04 25 MG Acetaminophen/ Hydrocodone Bitart 1 tab Q4HPRN PRN PO 07/05/25 12:45 07/16/25 11:31 1 TAB Acetaminophen 650 mg Q6HP PRN PO 07/05/25 14:45 Insulin Glargine 15 units HS SC 07/06/25 22:00 07/16/25 22:02 15 UNITS Vancomycin HCl 100 ml @ 100 mls/hr DAILY@1100 IV 07/08/25 11:00 07/16/25 11:26 100 MLS/HR Sodium Chloride 10 ml QSHIFT@10,22 IV 07/08/25 22:00 07/17/25 09:48 10 ML Diagnostic Test (Pha) 1 strip ACHS 07/09/25 11:30 07/17/25 06:19 1 STRIP Insulin Human Regular ACHS SC 07/09/25 11:30 07/16/25 22:01 2 UNITS Dextrose 50 ml UD PRN IV 07/09/25 10:15 Insulin Glargine 10 units QAM SC 07/11/25 07:00 07/16/25 07:11 10 UNITS Cefepime HCl 50 ml @ 12.5 mls/hr Q12H IV 07/12/25 18:00 07/17/25 06:14 12.5 MLS/HR objective GENERAL: Alert and oriented x 3. No acute distress. EYES: PERRL, EOMI. Anicteric. HENT: Moist mucous membranes. LUNGS: Clear to auscultation bilaterally. CARDIOVASCULAR: Regular rate and rhythm. ABDOMEN: Soft, non-tender and non-distended. EXTREMITIES: No edema. NEUROLOGIC: No focal neurological deficits. SKIN: Warm, dry. laboratory and microbiology Laboratory Tests 07/17/25 05:52 07/14/25 06:05 Test 07/14/25 06:05 Range/Units Serum Glucose 174 H 74-106 mg/dL Problem List Preprocedural cardiovascular examination. Acute hypoxic respiratory failure in the setting of COVID pneumonia. Right foot osteomyelitis. Sepsis. Diabetic ketoacidosis. Acute kidney injury, resolved. Dementia. Assessment/Plan Continued all current supportive medical care. Tylenol for pain management. IV antibiotics as ordered. GI prophylactics. Metoprolol. Nitro SL. Additional plan as per the hospital course. Dietary Evaluation Review Comments: 1. glucerna 50/hr, along with Propofol 257kcal provide 100% Protein needs and 128% energy needs. Adding Ryder BID will promote wound healing. 2. Continure TF protocol, 3. Reassess when pt is extubated 4. Advance to CCHO-60 diet when pt passes SOFTWARE SUPPORT SPECIALIST eval. Expected Outcomes/Goals: gradually healed wound, Avoid catabolic syndrome Plan discussed with: Patient ROSE DURAN MD Jul 17, 2025 11:58
--- NOTE | 2025-07-17 18:54 | DVHPN2 ---
Progress Note - Dictate Date Seen: Jul 17, 2025 Medical Necessity Reason Pt with a Central, PICC or Fol: No vital signs Vital Sign Date Time Temp Pulse Resp B/P (MAP) Pulse Ox O2 Delivery O2 Flow Rate FiO2 07/17/25 17:00 98.7 84 17 103/68 (80) 97 98.7 07/17/25 07:45 Room Air* 0 21 Total Intake and Output 07/16/25 07/16/25 07/17/25 15:00 23:00 07:00 Intake Total 150 ml 215 ml 280 ml Output Total 300 ml 700 ml Balance 150 ml -85 ml -420 ml medications Current Medications Medications Dose Ordered Sig/Philip Route Start Time Stop Time Status Last Admin Dose Admin Dextrose 50 ml UD PRN IV 06/18/25 17:00 Cancel Vancomycin HCl 0 ml @ 0 mls/hr UD IV 06/18/25 20:30 Ondansetron HCl 4 mg Q4HP PRN IV 06/18/25 20:30 Nitroglycerin 0.4 mg Q5MINP PRN SL 06/18/25 20:30 Morphine Sulfate 2 mg Q30M PRN IV 06/18/25 20:30 Pantoprazole Sodium 40 mg BID IV 06/21/25 22:00 07/17/25 09:48 40 MG Morphine Sulfate 1 mg Q4HP PRN IV 07/02/25 10:00 07/04/25 23:25 1 MG Enteral Nutritional Formula 240 ml BIDWM PO 07/04/25 18:00 07/17/25 18:25 240 ML Magnesium Sulfate/ Dextrose 100 ml @ 100 mls/hr Q1HR IV 07/05/25 05:00 07/05/25 06:59 Cancel Metoprolol Tartrate 25 mg BID PO 07/05/25 10:00 07/16/25 22:04 25 MG Acetaminophen/ Hydrocodone Bitart 1 tab Q4HPRN PRN PO 07/05/25 12:45 07/16/25 11:31 1 TAB Acetaminophen 650 mg Q6HP PRN PO 07/05/25 14:45 Insulin Glargine 15 units HS SC 07/06/25 22:00 07/16/25 22:02 15 UNITS Sodium Chloride 10 ml QSHIFT@,22 IV 07/08/25 22:00 07/17/25 09:48 10 ML Diagnostic Test (Pha) 1 strip ACHS 07/09/25 11:30 07/17/25 16:49 1 STRIP Insulin Human Regular ACHS SC 07/09/25 11:30 07/17/25 16:51 4 UNITS Dextrose 50 ml UD PRN IV 07/09/25 10:15 Insulin Glargine 10 units QAM SC 07/11/25 07:00 07/16/25 07:11 10 UNITS Cefepime HCl 50 ml @ 12.5 mls/hr Q12H IV 07/12/25 18:00 07/17/25 18:27 12.5 MLS/HR laboratory and microbiology Laboratory Tests 07/17/25 05:52 07/14/25 06:05 Test 07/14/25 06:05 Range/Units Serum Glucose 174 H 74-106 mg/dL Assessment/Plan Impression Acute hypoxic respiratory failure Acute metabolic encephalopathy Pneumonia, likely GNR COVID-19 infection Right foot osteomyelitis Diabetic ketoacidosis Events: Remains on room air Supplemental oxygen PRN Plan: Supplemental oxygen PRN Titrate to keep O2 sats above 92%. S/p PICC line placement. Continue antibiotics Follow up cultures Hemodynamic monitoring. Supportive care. Monitor hemoglobin Transfuse if less than 7.0 g/dL. Pain control Avoid oversedation Monitor renal function. Monitor electrolytes. Supplement as necessary. Monitor ins and outs. Clinimix for nutritional support Wound care DVT prophylaxis. Dietary Evaluation Review Comments: 1. glucerna 50/hr, along with Propofol 257kcal provide 100% Protein needs and 128% energy needs. Adding Ryder BID will promote wound healing. 2. Continure TF protocol, 3. Reassess when pt is extubated 4. Advance to CCHO-60 diet when pt passes MANAGER CHILD eval. Expected Outcomes/Goals: gradually healed wound, Avoid catabolic syndrome Plan discussed with: Patient BANDAR CARTWRIGHT MD Jul 17, 2025 18:54
[2025-07-18] VITALS (8 sets, daily range): BP systolic 95–109; BP diastolic 65–70; PULSE 96–114; RESP 16–18; TEMP 97–98.7; O2SAT 93–98
[2025-07-18 06:54] LABS: Hematocrit 30.8 % (41.0-53.0); Hemoglobin 10.4 g/dL (13.5-17.5); Mean Corpuscular Hemoglobin 33.8 pg (28.0-32.0); Mean Corpuscular Volume 99.7 fL (80.0-100.0); Nucleated Red Blood Cells % 0.1 %
--- NOTE | 2025-07-18 09:54 | DVHPN2 ---
Subjective Patient more alert today. Denies any symptoms. Reviewed: Care Plan, H&P, Labs, Medications, Previous Orders, Radiology Changes from previous H/P or p: No Changes General: Per HPI Objective Vitals Vital Signs Date Time Temp Pulse Resp B/P (MAP) Pulse Ox O2 Delivery O2 Flow Rate FiO2 07/18/25 08:00 102 17 98 Room Air* 0 21 07/18/25 04:42 97.2 103/67 (79) 97.2 Intake/Output Intake and Output 07/18/25 06:59 Intake Total 980 ml Output Total 1110 ml Balance -130 ml Intake Oral 930 ml IV Total 50 ml Output Urine Total 1110 ml # Bowel Movements 6 General Appearance: Alert, Cooperative, No acute distress, Other HEENT: Atraumatic, PERRLA, Other (right pupil slightly larger than left) Lungs: Clear to auscultation, Other (Decreased air entry bilaterally) Cardiovascular: Regular rate, Normal S1, Normal S2 Abdomen: Normal bowel sounds, Soft, No tenderness Musculoskeletal: Normal sensory function, Normal motor function, Other (bilateral BKA) Extremities: No clubbing, No cyanosis, No edema Neuro: Strength at 5/5 X4 ext, Cranial nerves 3-12 NL Skin: Dry, Intact, Warm Psych/Mental Status: Mental status NL, Mood NL Medications Current Medications Medications Dose Ordered Sig/Philip Route Start Time Stop Time Status Last Admin Dose Admin Dextrose 50 ml UD PRN IV 06/18/25 17:00 Cancel Vancomycin HCl 0 ml @ 0 mls/hr UD IV 06/18/25 20:30 Ondansetron HCl 4 mg Q4HP PRN IV 06/18/25 20:30 Nitroglycerin 0.4 mg Q5MINP PRN SL 06/18/25 20:30 Morphine Sulfate 2 mg Q30M PRN IV 06/18/25 20:30 Pantoprazole Sodium 40 mg BID IV 06/21/25 22:00 07/17/25 22:13 40 MG Morphine Sulfate 1 mg Q4HP PRN IV 07/02/25 10:00 07/04/25 23:25 1 MG Enteral Nutritional Formula 240 ml BIDWM PO 07/04/25 18:00 07/17/25 18:25 240 ML Magnesium Sulfate/ Dextrose 100 ml @ 100 mls/hr Q1HR IV 07/05/25 05:00 07/05/25 06:59 Cancel Metoprolol Tartrate 25 mg BID PO 07/05/25 10:00 07/16/25 22:04 25 MG Acetaminophen/ Hydrocodone Bitart 1 tab Q4HPRN PRN PO 07/05/25 12:45 07/16/25 11:31 1 TAB Acetaminophen 650 mg Q6HP PRN PO 07/05/25 14:45 Insulin Glargine 15 units HS SC 07/06/25 22:00 07/17/25 22:14 15 UNITS Sodium Chloride 10 ml QSHIFT@10,22 IV 07/08/25 22:00 07/17/25 22:43 10 ML Diagnostic Test (Pha) 1 strip ACHS 07/09/25 11:30 07/18/25 06:38 1 STRIP Insulin Human Regular ACHS SC 07/09/25 11:30 07/17/25 22:15 3 UNITS Dextrose 50 ml UD PRN IV 07/09/25 10:15 Insulin Glargine 10 units QAM SC 07/11/25 07:00 07/16/25 07:11 10 UNITS Cefepime HCl 50 ml @ 12.5 mls/hr Q12H IV 07/12/25 18:00 07/18/25 06:00 12.5 MLS/HR Laboratory Results Laboratory Tests 07/14/25 06:05 07/18/25 05:53 Urinalysis Test 06/18/25 13:37 07/06/25 23:30 Urine Hyaline Casts Few /lpf (0 - 2) Urine Color Light-yellow (Yellow) Urine Clarity Clear (Clear) Urine pH 6.5 (5.0-9.0) Urine Specific [place] 1.014 (1.001-1.035) Urine Protein 1+ (Negative) H Urine Ketones Negative (Negative) Urine Blood 2+ /uL (Negative) H Urine Nitrite Negative (Negative) Urine Bilirubin Negative (Negative) Urine Urobilinogen Normal mg/dL (Negative) Urine Leukocyte Esterase Negative /uL (Negative) Urine RBC 17 /hpf (0 - 3) Urine Microscopic WBC 6 /HPF (0-3) H Urine Squamous Epithelial Cells Few /hpf (<5) Urine Bacteria None seen /hpf (None Seen) Urine Mucus Few (None Seen) Urine Yeast (Budding) Few /hpf (None Seen) Urine Glucose 4+ mg/dL (Normal) H Microbiology Microbiology Date/Time Source Procedure Growth Status 07/14/25 10:00 Nose MRSA Screen - Final Complete 06/18/25 15:04 Sputum Gram Stain - Final Complete 06/18/25 15:04 Respiratory Culture - Final Klebsiella pneumoniae Leclercia adecarboxylata Enterobacter cloacae Citrobacter farmeri Complete 06/18/25 13:09 Blood Blood Culture - Final NO GROWTH AFTER 5 DAYS OF INCUBATION. Complete Labs and/or images reviewed: Labs reviewed by me, Image(s) reviewed by me Assessment/Plan Assessment/Plan Impression: -septic shock -right foot osteomyelitis -diabetic ketoacidosis -acute hypoxic respiratory failure -diabetes mellitus -primary hypertension -acute kidney injury -decubitus ulcer -acute delirium -community-acquired pneumonia, Gram-positive and Gram-negative etiology -COVID-19 Plan: Events: No events overnight. Blood sugar stable. -regular insulin sliding scale -Protonix 40 mg daily -continue vancomycin, cefepime -social service consultation for discharge planning with [facility] -Wound care Total time spent with patient discussing and formulating plan of care: 35 minutes. This medical document was created using an electronic medical record system with [employer] dictation system. Although this document has been carefully reviewed, there may still be some phonetic and typographical errors. These areas are purely typographical due to imperfections of the software programs, and do not reflect any compromise in the patient's medical care. Plan discussed with: Patient, Other (RN) Date of Service: Jul 18, 2025 Billing Provider: MAINE VELAZCO NP Common Visit Codes: [id number] INP/OBS CARE(HIGH) MAINE VELAZCO NP Jul 18, 2025 09:54
--- NOTE | 2025-07-18 15:00 | DVHPN2 ---
Progress Note - Dictate Date Seen: Jul 18, 2025 Medical Necessity Reason Pt with a Central, PICC or Fol: No vital signs Vital Sign Date Time Temp Pulse Resp B/P (MAP) Pulse Ox O2 Delivery O2 Flow Rate FiO2 07/18/25 13:00 98.2 96 17 98/68 (78) 97 98.2 07/18/25 08:00 Room Air* 0 21 Total Intake and Output 07/17/25 07/17/25 07/18/25 15:00 23:00 07:00 Intake Total 700 ml 280 ml Output Total 800 ml 310 ml Balance -100 ml -30 ml medications Current Medications Medications Dose Ordered Sig/Philip Route Start Time Stop Time Status Last Admin Dose Admin Dextrose 50 ml UD PRN IV 06/18/25 17:00 Cancel Vancomycin HCl 0 ml @ 0 mls/hr UD IV 06/18/25 20:30 Ondansetron HCl 4 mg Q4HP PRN IV 06/18/25 20:30 Nitroglycerin 0.4 mg Q5MINP PRN SL 06/18/25 20:30 Morphine Sulfate 2 mg Q30M PRN IV 06/18/25 20:30 Pantoprazole Sodium 40 mg BID IV 06/21/25 22:00 07/18/25 10:05 40 MG Morphine Sulfate 1 mg Q4HP PRN IV 07/02/25 10:00 07/04/25 23:25 1 MG Enteral Nutritional Formula 240 ml BIDWM PO 07/04/25 18:00 07/18/25 08:00 240 ML Magnesium Sulfate/ Dextrose 100 ml @ 100 mls/hr Q1HR IV 07/05/25 05:00 07/05/25 06:59 Cancel Metoprolol Tartrate 25 mg BID PO 07/05/25 10:00 07/16/25 22:04 25 MG Acetaminophen/ Hydrocodone Bitart 1 tab Q4HPRN PRN PO 07/05/25 12:45 07/16/25 11:31 1 TAB Acetaminophen 650 mg Q6HP PRN PO 07/05/25 14:45 Insulin Glargine 15 units HS SC 07/06/25 22:00 07/17/25 22:14 15 UNITS Sodium Chloride 10 ml QSHIFT@10,22 IV 07/08/25 22:00 07/18/25 10:12 10 ML Diagnostic Test (Pha) 1 strip ACHS 07/09/25 11:30 07/18/25 11:38 1 STRIP Insulin Human Regular ACHS SC 07/09/25 11:30 07/18/25 11:35 2 UNITS Dextrose 50 ml UD PRN IV 07/09/25 10:15 Insulin Glargine 10 units QAM SC 07/11/25 07:00 07/16/25 07:11 10 UNITS Cefepime HCl 50 ml @ 12.5 mls/hr Q12H IV 07/12/25 18:00 07/18/25 06:00 12.5 MLS/HR laboratory and microbiology Laboratory Tests 07/18/25 05:53 07/14/25 06:05 Test 07/14/25 06:05 Range/Units Serum Glucose 174 H 74-106 mg/dL Assessment/Plan Impression Acute hypoxic respiratory failure Acute metabolic encephalopathy Pneumonia, likely GNR COVID-19 infection Right foot osteomyelitis Diabetic ketoacidosis Events: Remains on room air No new events Following commands Plan: Supplemental oxygen PRN Titrate to keep O2 sats above 92%. S/p PICC line placement. Continue antibiotics Follow up cultures Hemodynamic monitoring. Supportive care. Monitor hemoglobin Transfuse if less than 7.0 g/dL. Pain control Avoid oversedation Monitor renal function. Monitor electrolytes. Supplement as necessary. Monitor ins and outs. Clinimix for nutritional support Wound care Awaiting placement DVT prophylaxis. Dietary Evaluation Review Comments: 1. glucerna 50/hr, along with Propofol 257kcal provide 100% Protein needs and 128% energy needs. Adding [place]der BID will promote wound healing. 2. Continure TF protocol, 3. Reassess when pt is extubated 4. Advance to CCHO-60 diet when pt passes MANAGER OF DRILLING eval. Expected Outcomes/Goals: gradually healed wound, Avoid catabolic syndrome Plan discussed with: Patient BANDAR CARTWRIGHT MD Jul 18, 2025 15:00
--- NOTE | 2025-07-18 23:56 | DVHPN2 ---
Progress Note - Dictate Date Seen: Jul 18, 2025 Medical Necessity Reason Pt with a Central, PICC or Fol: No Subjective Patient was seen and evaluated in follow up. Patient more alert today. BLENDER 1.39. The patient will be discharged on hospice. Telemetry reviewed. vital signs Vital Sign Date Time Temp Pulse Resp B/P (MAP) Pulse Ox O2 Delivery O2 Flow Rate FiO2 07/18/25 10:00 100 81/50 07/18/25 09:00 97.9 17 98 97.9 07/18/25 08:00 Room Air* 0 21 Total Intake and Output 07/17/25 07/17/25 07/18/25 14:59 22:59 06:59 Intake Total 700 ml 280 ml Output Total 800 ml 310 ml Balance -100 ml -30 ml medications Current Medications Medications Dose Ordered Sig/Philip Route Start Time Stop Time Status Last Admin Dose Admin Dextrose 50 ml UD PRN IV 06/18/25 17:00 Cancel Vancomycin HCl 0 ml @ 0 mls/hr UD IV 06/18/25 20:30 Ondansetron HCl 4 mg Q4HP PRN IV 06/18/25 20:30 Nitroglycerin 0.4 mg Q5MINP PRN SL 06/18/25 20:30 Morphine Sulfate 2 mg Q30M PRN IV 06/18/25 20:30 Pantoprazole Sodium 40 mg BID IV 06/21/25 22:00 07/18/25 10:05 40 MG Morphine Sulfate 1 mg Q4HP PRN IV 07/02/25 10:00 07/04/25 23:25 1 MG Enteral Nutritional Formula 240 ml BIDWM PO 07/04/25 18:00 07/18/25 08:00 240 ML Magnesium Sulfate/ Dextrose 100 ml @ 100 mls/hr Q1HR IV 07/05/25 05:00 07/05/25 06:59 Cancel Metoprolol Tartrate 25 mg BID PO 07/05/25 10:00 07/16/25 22:04 25 MG Acetaminophen/ Hydrocodone Bitart 1 tab Q4HPRN PRN PO 07/05/25 12:45 07/16/25 11:31 1 TAB Acetaminophen 650 mg Q6HP PRN PO 07/05/25 14:45 Insulin Glargine 15 units HS SC 07/06/25 22:00 07/17/25 22:14 15 UNITS Sodium Chloride 10 ml QSHIFT@10,22 IV 07/08/25 22:00 07/18/25 10:12 10 ML Diagnostic Test (Pha) 1 strip ACHS 07/09/25 11:30 07/18/25 11:38 1 STRIP Insulin Human Regular ACHS SC 07/09/25 11:30 07/18/25 11:35 2 UNITS Dextrose 50 ml UD PRN IV 07/09/25 10:15 Insulin Glargine 10 units QAM SC 07/11/25 07:00 07/16/25 07:11 10 UNITS Cefepime HCl 50 ml @ 12.5 mls/hr Q12H IV 07/12/25 18:00 07/18/25 06:00 12.5 MLS/HR objective GENERAL: Alert and oriented x 3. No acute distress. EYES: PERRL, EOMI. Anicteric. HENT: Moist mucous membranes. LUNGS: Clear to auscultation bilaterally. CARDIOVASCULAR: Regular rate and rhythm. ABDOMEN: Soft, non-tender and non-distended. EXTREMITIES: No edema. NEUROLOGIC: No focal neurological deficits. SKIN: Warm, dry. laboratory and microbiology Laboratory Tests 07/18/25 05:53 07/14/25 06:05 Test 07/14/25 06:05 Range/Units Serum Glucose 174 H 74-106 mg/dL Problem List Preprocedural cardiovascular examination. Acute hypoxic respiratory failure in the setting of COVID pneumonia. Right foot osteomyelitis. Sepsis. Diabetic ketoacidosis. Acute kidney injury, resolved. Dementia. Assessment/Plan Continued all current supportive medical care. Morphine and [employer] for pain management. IV antibiotics as ordered. Metoprolol. Nitro SL. GI prophylactics. Additional plan as per the hospital course. Dietary Evaluation Review Comments: 1. glucerna 50/hr, along with Propofol 257kcal provide 100% Protein needs and 128% energy needs. Adding Ryder BID will promote wound healing. 2. Continure TF protocol, 3. Reassess when pt is extubated 4. Advance to CCHO-60 diet when pt passes TRACK MAINTAINER eval. Expected Outcomes/Goals: gradually healed wound, Avoid catabolic syndrome Plan discussed with: Patient RENEEROSE See MD Jul 18, 2025 13:41
[2025-07-19 01:00] VITALS: BP 115/75; PULSE 101; RESP 17; TEMP 98.4; O2SAT 97
[2025-07-19 05:00] VITALS: BP 127/77; PULSE 80; RESP 16; TEMP 98.6; O2SAT 97
[2025-07-19 07:00] LABS: Hematocrit 32.5 % (41.0-53.0); Nucleated Red Blood Cells % 0.0 %
[2025-07-19 07:02] LABS: Hemoglobin 10.7 g/dL (13.5-17.5); Mean Corpuscular Hemoglobin 33.5 pg (28.0-32.0); Mean Corpuscular Volume 102.0 fL (80.0-100.0)
[2025-07-19 08:00] VITALS: PULSE 75; PULSE 91; RESP 18; O2SAT 99
[2025-07-19 09:00] VITALS: BP 134/76; PULSE 91; RESP 18; TEMP 98.9; O2SAT 99
[2025-07-19 13:00] VITALS: BP 114/75; PULSE 81; RESP 18; TEMP 97.1; O2SAT 100
--- NOTE | 2025-07-20 00:12 | DVHPN2 ---
Progress Note - Dictate Date Seen: Jul 19, 2025 Medical Necessity Reason Pt with a Central, PICC or Fol: No Subjective Patient was seen and evaluated in follow up. No overnight events. Patient denies any cardiac symptoms. Patient is cardiac stable for discharge. Telemetry reviewed. vital signs Vital Sign Date Time Temp Pulse Resp B/P (MAP) Pulse Ox O2 Delivery O2 Flow Rate FiO2 07/19/25 13:00 97.1 81 18 114/75 (88) 100 97.1 07/19/25 08:00 Room Air* 0 21 medications Current Medications Medications Dose Ordered Sig/Philip Route Start Time Stop Time Status Last Admin Dose Admin Dextrose 50 ml UD PRN IV 06/18/25 17:00 Cancel Magnesium Sulfate/ Dextrose 100 ml @ 100 mls/hr Q1HR IV 07/05/25 05:00 07/05/25 06:59 Cancel objective GENERAL: Alert and oriented x 3. No acute distress. EYES: PERRL, EOMI. Anicteric. HENT: Moist mucous membranes. LUNGS: Clear to auscultation bilaterally. CARDIOVASCULAR: Regular rate and rhythm. ABDOMEN: Soft, non-tender and non-distended. EXTREMITIES: No edema. NEUROLOGIC: No focal neurological deficits. SKIN: Warm, dry. laboratory and microbiology Laboratory Tests 07/19/25 05:18 07/14/25 06:05 Test 07/14/25 06:05 Range/Units Serum Glucose 174 H 74-106 mg/dL Problem List Preprocedural cardiovascular examination. Acute hypoxic respiratory failure in the setting of COVID pneumonia. Right foot osteomyelitis. Sepsis. Diabetic ketoacidosis. Acute kidney injury, resolved. Dementia. Assessment/Plan Continued all current supportive medical care. Morphine and [place] for pain management. IV antibiotics as ordered. Metoprolol. Nitro SL. GI prophylactics. Additional plan as per the hospital course. Dietary Evaluation Review Comments: 1. glucerna 50/hr, along with Propofol 257kcal provide 100% Protein needs and 128% energy needs. Adding Ryder BID will promote wound healing. 2. Continure TF protocol, 3. Reassess when pt is extubated 4. Advance to CCHO-60 diet when pt passes COMPUTER RECYCLING WORKER eval. Expected Outcomes/Goals: gradually healed wound, Avoid catabolic syndrome Plan discussed with: Patient ROSE DURAN MD Jul 20, 2025 00:12
== END 2025-07-19 16:05 | disposition hospice, home (50) | DRG 853 ==
LOC: EDBD 12:30 → ER 12:30 → EDUNIT# 12:30 → OVERFLOW 20:36 → ICU CENTRL 06-21 23:52 → TELE-CENTR 07-05 16:49
PROVIDERS: ADMIT Nurse Practitioner Acute Care; ATTEND Nurse Practitioner Acute Care
PROC: 5A1955Z Respiratory Ventilation, Greater than 96 Consecutive Hours (ICD-10-PCS; principal; 2025-06-18)
PROC: 0BH17EZ Insertion of Endotracheal Airway into Trachea, Via Natural or Artificial Opening (ICD-10-PCS; 2025-06-18)
PROC: 02HV33Z Insertion of Infusion Device into Superior Vena Cava, Percutaneous Approach (ICD-10-PCS; 2025-06-18)
PROC: 0Y6H0Z1 Detachment at Right Lower Leg, High, Open Approach (ICD-10-PCS; 2025-07-07)
PROC: 02HV33Z Insertion of Infusion Device into Superior Vena Cava, Percutaneous Approach (ICD-10-PCS; 2025-07-08)
PROC: B548ZZA Ultrasonography of Superior Vena Cava, Guidance (ICD-10-PCS; 2025-07-08)
DX: A41.59 Other Gram-negative sepsis (principal); E11.11 Type 2 diabetes mellitus with ketoacidosis with coma; R65.21 Severe sepsis with septic shock; J96.01 Acute respiratory failure with hypoxia; J15.69 Pneumonia due to other Gram-negative bacteria; U07.1 COVID-19; G93.41 Metabolic encephalopathy; J15.9 Unspecified bacterial pneumonia; J12.82 Pneumonia due to coronavirus disease 2019; N17.9 Acute kidney failure, unspecified; E87.0 Hyperosmolality and hypernatremia; L03.116 Cellulitis of left lower limb; E11.52 Type 2 diabetes mellitus with diabetic peripheral angiopathy with gangrene; L03.115 Cellulitis of right lower limb; M86.8X7 Other osteomyelitis, ankle and foot; L89.899 Pressure ulcer of other site, unspecified stage; E83.39 Other disorders of phosphorus metabolism; I10 Essential (primary) hypertension; E11.69 Type 2 diabetes mellitus with other specified complication; D64.9 Anemia, unspecified; F03.90 Unspecified dementia, unspecified severity, without behavioral disturbance, psychotic disturbance, mood disturbance, and anxiety; D75.89 Other specified diseases of blood and blood-forming organs; E87.6 Hypokalemia; D75.839 Thrombocytosis, unspecified; Z89.512 Acquired absence of left leg below knee; Z89.511 Acquired absence of right leg below knee; Z83.3 Family history of diabetes mellitus; Z82.49 Family history of ischemic heart disease and other diseases of the circulatory system; Z79.4 Long term (current) use of insulin; Z51.5 Encounter for palliative care
CPT/HCPCS: 31500; 36415; 36556; 36569; 36600; 70450; 71045; 73700; 76937; 80048; 80053; 80069; 80202; 81001; 82010; 82565; 82607; 82746; 82805; 82962; 83036; 83605; 83735; 84100; 84132; 84439; 84443; 84478; 84484; 85007; 85025; 85027; 85610; 85652; 85730; 86141; 86850; 86900; 86901; 87040; 87070; 87077; 87081; 87186; 87205; 87426; 87804; 93005; 93306; 94002; 94003; 96361; 96374; 99291; 99292; G0378; J0692; J1100; J1815; J1885; J2003; J2248; J2405; J2470; J2543; J2704; J3480; J3490; J7060